=== PATIENT | male | born 1990 | race Two or more races ===

== ENCOUNTER 2024-06-06 00:44 | Inpatient (IN) | payer MEDICAID, SELFPAY ==
[2024-06-06] VITALS (16 sets, daily range): BP systolic 130–190; BP diastolic 92–131; PULSE 68–125; RESP 16–98; TEMP 36.2–37.6; O2SAT 94–100; BMI 35.1
--- NOTE | 2024-06-06 01:13 | PD.EDRME ---
Rapid Medical Screening Exam RME Arrival date/time: 06/06/24 00:44 34-year-old female with past medical history of kidney stones presents to the emergency department complaining of bilateral flank pain. Chief Complaint: Back Pain/Injury Time Seen by Provider: 06/06/24 03:10 Vital signs: Vital Signs Temperature 98.4 F 06/06/24 01:00 Pulse Rate 110 H 06/06/24 01:00 Respiratory Rate 19 06/06/24 01:00 Blood Pressure 189/114 H 06/06/24 01:00 Pulse Oximetry (%) 99 06/06/24 01:00 Oxygen Delivery Method Room Air 06/06/24 01:00 Vital signs reviewed by provider: Yes
[2024-06-06] MEDS: KETOROLAC INJ 60 MG/2 ML VIAL 30 MG IM (01:19)
[2024-06-06 01:35] LABS: Basophils % (Auto) 0 % (0-2.5); Eosinophils # (Auto) 0.1 Thou/mm3 (0.0-0.5); Eosinophils % (Auto) 1 % (0-10); Hematocrit 26.1 % (41.0-53.0); Immature Granulocytes % (Auto) 0 % (0-0); Immature Granulocytes Auto 0.02 Thou/mm3 (0.00-0.00); Lymphocytes # (Auto) 0.7 Thou/mm3 (1.0-4.8); Lymphocytes % (Auto) 8 % (10-50); Mean Corpuscular HGB Conc 29.9 g/dl (31.0-37.0); Mean Corpuscular Hemoglobin 19.9 pg (25.0-35.0); Mean Corpuscular Volume 67 fL (80-100); Monocytes # (Auto) 0.6 Thou/mm3 (0.0-0.8); Monocytes % (Auto) 7 % (0-12); Neutrophils # (Auto) 7.4 Thou/mm3 (1.8-7.7); Neutrophils % (Auto) 83 % (37-80); Nucleated Red Blood Cell % 0 /100 WBC (0); Platelet Count 332 Thou/mm3 (140-440); RDW Standard Deviation 45.2 fL (35.1-43.9); Red Blood Count 3.92 Miln/mm3 (4.50-5.90); White Blood Count 8.9 Thou/mm3 (3.8-10.6)
[2024-06-06 01:37] LABS: Hemoglobin 7.8 g/dL (13.5-16.0)
--- NOTE | 2024-06-06 03:09 | XR_ITS ---
Examination: CT abdomen with intravenous contrast CT pelvis with intravenous contrast 2-D coronal reconstructions 2-D sagittal reconstructions Date and time of exam:June 06, 2024 at 0349 hrs. Comparison May 01, 2024 Indications: Bilateral flank pain beginning 2 days ago, history kidney stones. CTDI: vol (mGy) 4.91 DLP: (mGycm) 279 Technique: Multiple axial sections of the abdomen and pelvis have been obtained. 64 slice high-resolution scanner used. 3 mm axial sections have been obtained, post intravenous injection 30 cc Isovue 300 2-D sagittal, coronal reconstructions obtained. Low dose protocols were performed. One or more of the following dose reduction techniques were used; automated exposure control, adjustment of the mA and/or KV according to patient size, use of iterative reconstruction technique. Findings: No focal liver or splenic lesions No gallstones No pancreatic mass Bilateral large staghorn calculi with bilateral ureteral stents Moderate to advanced right hydronephrosis mild left hydronephrosis Ureteral stents in satisfactory position Mild thickening of the urinary bladder wall Inflammatory change surrounding both ureters No bowel obstruction Appendix is not visualized Extensive laminectomy with likely postop fluid collection in the soft tissue posterior to S1-L2 measuring 6.5 x 3.5 cm Impression: Findings most consistent with bilateral pyelonephritis, including moderate to advanced right hydronephrosis mild left hydronephrosis Cystitis
--- NOTE | 2024-06-06 03:10 | EKG_ITS ---
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
[2024-06-06 03:17] LABS: Alanine Aminotransferase 8 U/L (10-49); Albumin, Serum 4.4 gm/dL (3.5-5.0); Albumin/Globulin Ratio 1.4 (1.2-2.2); Alkaline Phosphatase 106 U/L (46-116); Anion Gap 9 (7-16); Aspartate Amino Transferase 12 U/L (0-34); BUN/Creatinine Ratio 17 Ratio (12-20); Bilirubin,Total 0.7 mg/dL (0.3-1.2); Blood Urea Nitrogen 25 mg/dL (9-23); Calcium 8.9 mg/dL (8.3-10.6); Calcium (Corrected) 8.9 mg/dL (8.5-10.1); Carbon Dioxide 21.1 mMol/L (20.0-31.0); Chloride 103 mMol/L (98-107); Creatinine (Component) 1.5 mg/dL (0.6-1.3); Estimated Creatinine Clearance 45.9 mL/min (>60); Globulin 3.1 gm/dL (2.3-3.5); Glucose 99 mg/dL (74-106); Lipase 49 U/L (12-53); Osmolality,Calculated 270 (275-295); Sodium 133 mMol/L (136-145); Total Protein 7.5 gm/dL (5.7-8.2); eGFR > 60 See Note
[2024-06-06 03:18] LABS: Potassium 2.7 mMol/L (3.4-5.1)
--- NOTE | 2024-06-06 03:18 | EDNOTE_ITS ---
ED Back Injury Pain RME/HPI General Chief Complaint: Back Pain/Injury Stated Complaint: KIDNEY PAIN Time Seen by Provider: 06/06/24 03:10 Arrival date/time: 06/06/24 00:44 RME / HPI RME / HPI Narrative: 06/06/24 00:44 34-year-old female with past medical history of kidney stones presents to the emergency department complaining of bilateral flank pain. ------- Dr. Munoz?s Main ED Evaluation: 34yo male presents to the ED for a chief complaint of bilateral flank pain x 2 weeks. Patient states his flank pain has been getting progressively worse over the last 2 days, reporting he hasn't been able to sleep for the last 2 days. He denies any fever, chills, N/V or any other associated symptoms. Patient notes next f/u appointment with Dr. Morelos in July2023. 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 release 24 hr oxycodone-acetaminophen 2.5 mg-325 1 tab PO Q8H PRN pain #7 tabs 05/04/24 mg tablet Allergies Allergy/AdvReac Type Severity Reaction Status Date / Time latex Allergy Severe RASH Verified 03/13/24 07:47 Review of Systems Review of Systems Systems Reviewed: All systems reviewed, normal except as documented Narrative Review of Systems: Gen: No fever, no chills, no weight loss EYES: No discharge, no visual changes, no pain HEENT: No ear pain, no congestion, no sore throat PULM: No shortness of breath, no cough, no congestion CV: No chest pain, no dyspnea on exertion, no palpitations GI: No nausea, no vomiting, no diarrhea, no pain, no constipation : No frequency, no urgency, no dysuria Musc/skel: No joint pain, + back pain Skin: No rash Psyc: No hallucinations, no depression Heme/Lymph: No easy bleeding or bruising tendencies Neuro: No weakness, no headache ED Exam Narrative Physical exam: GENERAL APPEARANCE: AxOx4, generally well-appearing, no acute distress. HEENT: NC, AT. MMM. EOMI, clear conjunctiva, oropharynx clear. NECK: Supple without lymphadenopathy. No stiffness or restricted ROM. HEART: Normal rate and regular rhythm, normal S1/S1, no m/r/g LUNGS: CTAB, moving air well. No crackles or wheezes are heard. ABDOMEN: Soft, nontender, nondistended with good bowel sounds heard. BACK: No midline C/T/L spine pain or deformity, right CVAT greater than the left, no obvious deformity. EXTREMITIES: Without cyanosis, clubbing or edema. MUSCULOSKELETAL: FROM of all major joints, no chest tenderness NEUROLOGICAL: Grossly nonfocal. Alert and oriented, moving all 4 extremities. CN not formally tested but appear grossly intact. Observed to ambulate with normal gait. Skin: Warm and dry without any rash. Course Quality Measures none Orders Category Date Time Status Admit to Inpatient Status Routine Admission 06/06/24 05:16 Active Patient Condition Routine Admission 06/06/24 05:16 Ordered Activity as Tolerated Routine Care 06/06/24 05:[address] Screening NOW Care 06/06/24 03:10 Active Continuous Pulse Oximetry NOW Care 06/06/24 05:16 Active EKG (ED ONLY) *Do not use* NOW Care 06/06/24 03:10 Completed Notify provider NEEDED Care 06/06/24 05:16 Active Obtain weight daily Care 06/06/24 05:17 Active Diet Renal Diet 06/06/[address] abdomen pelvis w con Stat Exams 06/06/24 03:09 Taken EKG (ED Only) Stat Exams 06/06/24 03:10 Draft Blood Culture (Lab) Stat Lab 06/06/24 04:25 Ordered CBC AM DRAW Lab 06/07/24 05:00 Ordered CBC AM DRAW Lab 06/08/24 05:00 Ordered CBC AM DRAW Lab 06/09/24 05:00 Ordered CBC Stat Lab 06/06/24 01:24 Results CMP [Comprehensive Metabolic Panel] Stat Lab 06/06/24 01:24 Completed Comprehensive Metabolic Panel AM DRAW Lab 06/07/24 05:00 Ordered Comprehensive Metabolic Panel AM DRAW Lab 06/08/24 05:00 Ordered Comprehensive Metabolic Panel AM DRAW Lab 06/09/24 05:00 Ordered Lipase Stat Lab 06/06/24 01:24 Completed Magnesium AM DRAW Lab 06/07/24 05:00 [address] Review Blood Smear Stat Lab 06/06/24 01:24 Results Phosphorous AM DRAW Lab 06/07/24 05:00 Ordered Urinalysis, C/S if Indicated Stat Lab 06/06/24 04:11 Completed Urine Culture Stat Lab 06/06/24 04:11 Received Acetaminophen Tab [Tylenol Tab] Med 06/06/24 05:16 Active 650 mg PO Q6H PRN Acetaminophen Tab [Tylenol Tab] Med 06/06/24 03:12 Discontinued 650 mg PO X1 ONE Heparin Inj Med 06/06/24 06:00 Ordered 5,000 unit SC Q8HR Ketorolac Inj [Toradol Inj] Med 06/06/24 01:12 Discontinued 30 mg IM X1 ONE Morphine Inj Med 06/06/24 04:27 Discontinued 6 mg IVP X1 ONE Ondansetron Inj [Zofran Inj] Med 06/06/24 05:16 Ordered 4 mg IV Q6H PRN Potassium Chloride [K-Dur] Med 06/06/24 03:09 Discontinued 40 meq PO X1 ONE Sodium Chloride 0.9% 1000 ml [Ns] 1,000 ml Med 06/06/24 05:30 Ordered IV 75 mls/hr Sodium Chloride 0.9% 1000 ml [Ns] 1,000 ml Med 06/06/24 03:09 Discontinued IV 999 mls/hr amLODIPine BESYLATE [Norvasc] Med 06/06/24 04:39 Discontinued 10 mg PO X1 ONE cefTRIAXone/D5w 1gm IV premix [Rocephin/D5w 1gm IV Med 06/06/24 04:27 Discontinued premix] 50 ml IV X1 cloNIDine HCL [Catapres] Med 06/06/24 04:39 Discontinued 0.1 mg PO X1 ONE Code Status Routine Oth 06/06/24 05:16 Ordered Oxygen Delivery PRN RT 06/06/24 05:16 Active Vital Signs Vital signs: Vital Signs Temperature 98.4 F 06/06/24 01:00 Pulse Rate 110 H 06/06/24 01:00 Respiratory Rate 19 06/06/24 01:00 Blood Pressure 189/114 H 06/06/24 01:00 Pulse Oximetry (%) 99 06/06/24 01:00 Oxygen Delivery Method Room Air 06/06/24 01:00 Pulse ox is 99% on room air, which is normal according to my interpretation. Back Pain / Injury MDM Narrative MDM Narrative:: Mr. Dixon is wheelchari bound with frequent UTI/pyelonephritis with increasing flank tenderness. He has bilateral ureteral stents and nephrolithiasis. He presents otherwise afebrile with laboratory testing significant for a normal WBC, elevated creatinine suggestive of TRINI and urinalysis c/w UTI. EMR review shows admission last month for simliar presentation with urine culture postive for proteus sensitive to cephalosporins. He was given IVF resucitation for his TRINI and first dose of IV ceftriaxone after blood cultures retrieved. CT shows adequate positioning of bilateral stents with findings c/w with infection. Given his urologic issues and existing J stents, he was presented to hospitalist for admission on IV antibiotics to aggressively treat infections and preserve the ureteral stents. Scribe Attestation: IMaine, am scribing for and in the presence of Dr. Munoz. 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, recurrent UTI, chronic nephrolithiasis s/p multiple stents, chronic hydronephrosis, HTN, anemia, multiple back surgeries How is presenting disease/condition affected by chronic disease/condition?: exacerbated by Evaluation data The following diagnostics were reviewed and interpreted by me:: lab results, radiology exam(s) and EKG tracing(s) Lab and/or radiology exams considered but not ordered:: none Interpretation Summary: CBC is within normal limits, Potassium is low at 2.7, Sodium is slightly low at 133, Creatinine is slightly elevated at 1.5, Lipase is normal, UA is significant for a UTI, according to my interpretation. EKG done at 0319, sinus rhythm, rate of 93, normal intervals, normal axis, nonspecific ST changes, no STEMI, according to my interpretation. ----- Addendum Report, Please read the 3rd impression as - Bilateral nonobstructing nephrolithiasis. , CT scan of the abdomen and pelvis with intravenous contrast (axial sections with sagittal and coronal reformats) June 06, 2024 0349 hours Clinical History: ureteral stents, TRINI Comparison: None available at the time of this report. Findings: The lung bases are clear. The liver, gallbladder, pancreas, spleen, and adrenals are unremarkable. Bilateral JJ stents from the renal pelvises to the urinary bladder. Moderate right hydroureteronephrosis. Mild left hydroureteronephrosis. Bilateral nonobstructing kidney stones. Bilateral fat stranding along the ureters. Urinary bladder wall thickening. No evidence of bowel obstruction. No evidence of appendicitis. There is no mesenteric or retroperitoneal adenopathy. There is no free fluid or free air. No acute fractures. Bilateral small hip joint effusions. S/p posterior laminectomy of L2, L3, L4, and L5. Cystic lesion at the posterior laminectomy site measures 4.6 x 6.9 x 3.0 cm. Impression: Probable bilateral ureteritis. Bilateral hydroureteronephrosis. Bilateral obstructing nephrolithiasis. Urinary bladder wall thickening, suspicious for cystitis. Bilateral small hip joint effusions. Consider correlation with MRI. Fecal loading. Cystic lesion at the posterior laminectomy site, differential diagnosis includes postsurgical seroma and abscess. Correlation with MRI with and without contrast should be considered. This report has been electronically signed by: Jason Muñoz MD. Medications / Prescriptions Medications or Prescriptions considered but not ordered:: none Medication administrations:: Medication Administration History Acetaminophen (Acetaminophen 325 Mg Tablet) 650 mg PO Q6H PRN PRN Reason: PAIN OR FEVER > 101 Stop: 07/06/24 05:15 Heparin Sodium (Porcine) (Heparin Sod Inj 5000 Unit/Ml Vial) 5,000 unit SC Q8HR [facility] Stop: 06/20/24 05:59 Sodium Chloride (Ns) 1,000 mls @ 75 mls/hr IV .[id number] [facility] Stop: 07/06/24 05:29 Ondansetron HCl (Ondansetron Inj 2 Mg/Ml Inj 2 Ml) 4 mg IV Q6H PRN; Protocol PRN Reason: NAUSEA OR VOMITING Stop: 07/06/24 05:15 Discontinued Medications Acetaminophen (Acetaminophen 325 Mg Tablet) 650 mg PO X1 ONE Stop: 06/06/24 03:13 Last Admin: 06/06/24 03:19 Dose: Not Given Documented By: CHELSI Non-Admin Reason: Patient Refused Amlodipine Besylate (Amlodipine Besylate 5 Mg Tablet) 10 mg PO X1 ONE Stop: 06/06/24 04:40 Last Admin: 06/06/24 04:52 Dose: 10 mg Documented By: Clonidine (Clonidine Hcl 0.1 Mg Tablet) 0.1 mg PO X1 ONE Stop: 06/06/24 04:40 Last Admin: 06/06/24 04:51 Dose: 0.1 mg Documented By: ALMITA Sodium Chloride (Ns) 1,000 mls @ 999 mls/hr IV .Q1H1M ONE Stop: 06/06/24 04:09 Last Admin: 06/06/24 03:42 Dose: 999 mls/hr Documented By: CHELSI Ceftriaxone Sodium/Dextrose (Rocephin/D5w 1gm Iv Premix) 50 mls @ 100 mls/hr IV X1 ONE Stop: 06/06/24 04:56 Ketorolac Tromethamine (Ketorolac Inj 60 Mg/2 Ml Vial) 30 mg IM X1 ONE Stop: 06/06/24 01:13 Last Admin: 06/06/24 01:19 Dose: 30 mg Documented By: BRUNILDA Morphine Sulfate (Morphine Sulf Inj 10 Mg/Ml Vial) 6 mg IVP X1 ONE Stop: 06/06/24 04:28 Last Admin: 06/06/24 04:34 Dose: 6 mg Documented By: CHELSI Potassium Chloride (Potassium Chloride 20 Meq Tabcr) 40 meq PO X1 ONE Stop: 06/06/24 03:10 Last Admin: 06/06/24 03:20 Dose: 40 meq Documented By: CHELSI see above Consultations Consultation(s) initiated? (list below): Yes Consultation #1 (Physician, Specialty, Details): [Juan], hospitalist, made aware of the patient?s HPI, PMHx, lab and/or radiology results. Treatment plan was discussed. Will admit for further evaluation and management. Accepts patient for admission. Time: 04:59 Diagnosis Differential diagnosis back pain/injury: pyelonephritis and other (obstructive uropathy, uterolithiasis, UTI, cystitis, TRINI) Most likely diagnosis given after review of the tests above:: see below Admission Indicated Admission indicated?: indicated Admission Request Was there a request for admission?: Yes Admission Attestation Admission request attestation: Discussed case with [] from Hospitalist service regarding admission. Discussed patients ED course, exam findings, labs, and radiology results. The Hospitalist [agrees,declines] to accept the patient for admission. Disposition Plan Disposition Plan: Admit Discharge Plan Plan Patient Disposition: Admit Acute Care w/in Hospital Prescriptions/Referrals Prescriptions/Med Rec: No Action oxycodone-acetaminophen [Percocet] 2.5-325 mg tablet 1 tab PO Q6H MDD 10 PRN (Reason: pain) Qty: 10 0RF Hold Instructions: hold until follow up with pcp metoprolol succinate 100 mg capsule,sprinkle,ER 24hr 100 mg PO QDAY Qty: 30 0RF oxycodone-acetaminophen 2.5-325 mg tablet 1 tab PO Q8H MDD 3 tab PRN (Reason: pain) Qty: 7 0RF Referrals: Vandana Sears REAL ESTATE AGENT/BROKER [Primary Care Provider] - In 1 week Problem List Clinical Impression: Pyelonephritis, Staghorn renal calculus, Chronic UTI (urinary tract infection), Right flank pain Patient/Caregiver Discharge Instructions Print Language: Ecuadorean Stand Alone Forms: Leyla Award Info., Patient Portal Info Letter
[2024-06-06] MEDS: POTASSIUM CHLORIDE 20 mEq TABCR 40 MEQ PO ×2 (03:20→16:34)
[2024-06-06] MEDS: SODIUM CHLORIDE 0.9% 1000 ML 1,000 ML 999 ML IV (03:42)
--- NOTE | 2024-06-06 04:15 | PC.NURSE ---
DR. SAUL NOTIFIED OF BLOOD PRESSURE 190/131, HEART RATE 116, AND PAIN MEDICATION REQUEST PAIN LEVEL /, NO NEW ORDERS RECEIVED AT THIS TIME.
[2024-06-06 04:17] LABS: Collection Type, Urine Clean Catch
[2024-06-06 04:22] LABS: Bacteria,Urine 2+; Bilirubin,Urine Negative (Negative); Blood,Urine 2+ (Negative); Budding Yeast,Urine Present; Glucose, Urine Negative (Negative); Ketones,Urine Negative (Negative); Leukocyte Esterase,Urine Positive (Negative); Nitrite,Urine Negative (Negative); Protein,Urine 3+ (Neg - Trace); RBC,Urine 97 /hpf (0-3); Specific Gravity,Urine 1.012 (1.001-1.035); Squamous Epithelial Cell,Urine 2 /hpf (0-5); Urobilinogen,Urine Negative mg/dL (0.0-1.0); WBC,Urine 743 /hpf (0-5)
[2024-06-06 04:23] LABS: Clarity,Urine Turbid (Clear/Hazy); Color,Urine Yellow (Lt Yel-Yel); Culture Indicated,Urine Yes
--- NOTE | 2024-06-06 04:26 | PRELIM_ITS ---
ORIGINAL REPORTCT scan of the abdomen and pelvis with intravenous contrast (axial sections with sagit paulie and coronal reformats) June 06, 2024 0349 hoursClinical History: ureteral stents, [place] on: None available at the time of this report.Findings:The lung bases are clear.The liver, gallbladde r, pancreas, spleen, and adrenals are unremarkable.Bilateral JJ stents from the renal pelvises to the urinary bladder.Moderate right hydroureteronephrosis. Mild left hydroureteronephrosis. Bilateral non obstructing kidney stones.Bilateral fat stranding along the ureters.Urinary bladder wall thickening.N o evidence of bowel obstruction. No evidence of appendicitis. There is no mesenteric or retroperitone al adenopathy.There is no free fluid or free air.No acute fractures. Bilateral small hip joint effusi ons.S/p posterior laminectomy of L2, L3, L4, and L5.Cystic lesion at the posterior laminectomy site m easures 4.6 x 6.9 x 3.0 cm.Impression:Probable bilateral ureteritis.Bilateral hydroureteronephrosis.B ilateral obstructing nephrolithiasis.Urinary bladder wall thickening, suspicious for cystitis.Bilater al small hip joint effusions. 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 Correlation wi MRI with and without contrast should be considered. Report Electronically Signed By: Jason roberson 06/06/2024 4:26:07 AM [EST]ADDENDUM REPORTPlease read the 3rd impression as - Bilateral nonobstru cting nephrolithiasis.Discussion Details: Addendum results verbally communicated to Dr. Munoz at 07: 56 AM ET 06/08/2024. Report Electronically Signed By: Jason Muñoz 06/06/2024 5:02:54 AM [EST]
[2024-06-06] MEDS: MORPHINE SULF INJ 10 MG/ML VIAL 6 MG IVP (04:34)
[2024-06-06] MEDS: cloNIDine HCL 0.1 MG TABLET PO ×2 (04:51→20:06)
[2024-06-06] MEDS: amLODIPine BESYLATE 5 MG TABLET 10 MG PO (04:52)
--- NOTE | 2024-06-06 05:29 | ESHP_ITS ---
Documentation for date of: 06/06/24 [facility] History of Present Illness History of present illness: Pierce Dixon is a 34-year-old male with a past medical history of spina bifida (wheelchair-bound), STRAW H[employer] shunt, recurrent UTI, chronic nephrolithiasis s/p multiple stents and self-catheterization, hypertension, and chronic anemia who presented to ED for abdominal and flank pain for two weeks that had progressively worsened in the last two days. Associated chills, dysuria, cloudy urine, and urinary frequency. Denies fever, nausea, sweats. Recently discharged on 05/04 for similar symptoms and found to have bilateral staghorn calculi due to Proteus mirabilis. Patient was to follow-up with Dr. Morelos for replacement of bilateral ureteral stents and dissolution of renal calculi earlier this month but was unable to due to transportation issues and episodes of diarrhea. As of now, patient is to see Dr. Morelos in July. 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 HEENT: NC/AT, mucous membranes moist, bilateral sclera anicteric. Cardiovascular: Regular rate and rhythm, S1/S2 present, no murmurs appreciated. Pulmonary: Clear to auscultation bilaterally, no rales/rhonchi/wheezes. Abdominal: Bilateral CVA tenderness, left flank tenderness; soft, non-distended, no rebound/guarding. Musculoskeletal: No peripheral edema. Skin: Warm and dry, intact, no rashes. Neuro: CN II-XII intact, no focal deficits. Results: Labs 06/06/24 01:24 06/06/24 01:24 Labs: Short CBC 06/06/24 Range/Units 01:24 WBC 8.9 (3.8-10.6) Thou/mm3 Hgb 7.8 L (13.5-16.0) g/dL Hct 26.1 L (41.0-53.0) % Plt Count 332 D (140-440) Thou/mm3 BMP 06/06/24 01:24 Sodium 133 L Potassium 2.7 L* Chloride 103 Carbon Dioxide 21.1 BUN 25 H Creatinine 1.5 H Glucose 99 Calcium 8.9 Liver Function 06/06/24 Range/Units 01:24 Total Bilirubin 0.7 (0.3-1.2) mg/dL AST 12 (0-34) U/L ALT 8 L (10-49) U/L Alkaline Phosphatase 106 (46-116) U/L Albumin 4.4 (3.5-5.0) gm/dL Urine 06/06/24 Range/Units 04:11 Urine Color Yellow (Lt Yel-Yel) Urine Clarity Turbid A (Clear/Hazy) Urine pH 8.0 H (5.0-7.0) Ur Specific [place] 1.012 (1.001-1.035) Urine Protein 3+ A (Neg - Trace) Urine Glucose (UA) Negative (Negative) Quality Measures Quality Measures none Medications Home Medications and Allergies Allergies Allergy/AdvReac Type Severity Reaction Status Date / Time latex Allergy Severe RASH Verified 03/13/24 07:47 Visit Medications Acetaminophen (Acetaminophen 325 Mg Tablet) 650 mg PO Q6H PRN PRN Reason: PAIN OR FEVER > 101 Stop: 07/06/24 05:15 Amlodipine Besylate (Amlodipine Besylate 5 Mg Tablet) 10 mg PO QDAY ARACELY Stop: 07/07/24 08:59 Clonidine (Clonidine Hcl 0.1 Mg Tablet) 0.1 mg PO BID ARACELY Stop: 07/06/24 20:59 Heparin Sodium (Porcine) (Heparin Sod Inj 5000 Unit/Ml Vial) 5,000 unit SC Q8HR [facility] Stop: 06/20/24 05:59 Hydromorphone HCl (Hydromorphone Inj 2 Mg/Ml Vial) 0.5 mg IVP Q8H PRN PRN Reason: PAIN SCALE 4-6 (Moderate Stop: 06/11/24 05:29 Sodium Chloride (Ns) 1,000 mls @ 75 mls/hr IV .[id number] [facility] Stop: 06/06/24 18:49 Ondansetron HCl (Ondansetron Inj 2 Mg/Ml Inj 2 Ml) 4 mg IV Q6H PRN; Protocol PRN Reason: NAUSEA OR VOMITING Stop: 07/06/24 05:15 Discontinued Medications Acetaminophen (Acetaminophen 325 Mg Tablet) 650 mg PO X1 ONE Stop: 06/06/24 03:13 Last Admin: 06/06/24 03:19 Dose: Not Given Amlodipine Besylate (Amlodipine Besylate 5 Mg Tablet) 10 mg PO X1 ONE Stop: 06/06/24 04:40 Last Admin: 06/06/24 04:52 Dose: 10 mg Clonidine (Clonidine Hcl 0.1 Mg Tablet) 0.1 mg PO X1 ONE Stop: 06/06/24 04:40 Last Admin: 06/06/24 04:51 Dose: 0.1 mg Sodium Chloride (Ns) 1,000 mls @ 999 mls/hr IV .Q1H1M ONE Stop: 06/06/24 04:09 Last Admin: 06/06/24 03:42 Dose: 999 mls/hr Ceftriaxone Sodium/Dextrose (Rocephin/D5w 1gm Iv Premix) 50 mls @ 100 mls/hr IV X1 ONE Stop: 06/06/24 04:56 Ketorolac Tromethamine (Ketorolac Inj 60 Mg/2 Ml Vial) 30 mg IM X1 ONE Stop: 06/06/24 01:13 Last Admin: 06/06/24 01:19 Dose: 30 mg Morphine Sulfate (Morphine Sulf Inj 10 Mg/Ml Vial) 6 mg IVP X1 ONE Stop: 06/06/24 04:28 Last Admin: 06/06/24 04:34 Dose: 6 mg Potassium Chloride (Potassium Chloride 20 Meq Tabcr) 40 meq PO X1 ONE Stop: 06/06/24 03:10 Last Admin: 06/06/24 03:20 Dose: 40 meq Assessment & Plan Plan Pierce Dixon is a 34-year-old male with a past medical history of spina bifida (wheelchair-bound), STR[employer] shunt, recurrent UTI, chronic nephrolithiasis s/p multiple stents and self-catheterization, hypertension, and chronic anemia admitted for bilateral hydroureteronephrosis and acute kidney injury. #Urinary tract infection #History of frequent UTI #Bilateral hydroureteronephrosis #Bilateral nonobstructing nephrolithiasis #S/p bilateral stent placement Complicated urological history of recurrent UTI, hydronephrosis, nephrolithiasis, status post multiple ureteral stents. CT A/P prelim read: Bilateral hydroureteronephrosis, bilateral nonobstructing nephrolithiasis, cystitis. History of Proteus mirabilis UTI sensitive to ceftriaxone. Follows-up with Dr. Morelos and per patient will see in July. ? Ceftriaxone 1 g IV daily ? Pain management: Dilaudid 0.5 mg IV every 8 hours as needed ? Follow-up urine culture ? Follow-up blood culture #TRINI #Hypokalemia Initial creatinine 1.5 (baseline 1.2), initial K 2.7. Given total 60 mEq PO potassium in ED. ? Monitor morning labs and replete as needed ? 1 L NS at 75 mL/h ? Avoid nephrotoxic agents, renally dose medications #Chronic microcytic anemia, likely due to iron deficiency ? Monitor with daily CBC #History of hypertension ? Amlodipine 10 mg daily ? Clonidine 0.1 mg p.o. twice daily #Spina bifida ? Follow-up outpatient Hospital management: Disposition: 2-3 hospital nights Fluids: 1 L NS at 75 mL/hr Diet: Renal Lines: Peripheral DVT prophylaxis: Heparin GI prophylaxis: Not indicated, on diet Baker: Self-caths at home CODE STATUS: full code ----- Plan discussed with attending physician Dr. Juan Flores MD PGY-1 Internal Medicine Attending Provider Attestation/Addendum Pt was evaluated and plan formulated together with the housestaff team. I have reviewed the residents note above and agree with most of its content. Please refer to the residents note for additional details.
[2024-06-06] MEDS: cefTRIAXone/D5w 1gm IV premix 50 ML IV (05:31)
[2024-06-06] MEDS: SODIUM CHLORIDE 0.9% 1000 ML 1,000 ML 75 ML IV (05:35)
[2024-06-06] MEDS: POTASSIUM CHLORIDE 20 mEq TABCR PO (05:35)
[2024-06-06 06:02] LABS: Path Review Blood Smear Sent to Pathologist
--- NOTE | 2024-06-06 08:30 | PC.NURSE ---
Pt is asleep. Arouses easily.
[2024-06-06] MEDS: HYDROmorphone INJ 2 MG/ML VIAL 0.5 MG IVP ×2 (08:41→16:33)
[2024-06-06] MEDS: ONDANSETRON INJ 2 MG/ML INJ 2 ML 4 MG IV ×2 (08:42→18:18)
[2024-06-06] MEDS: ACETAMINOPHEN 325 MG TABLET 650 MG PO ×2 (12:01→19:36)
--- NOTE | 2024-06-06 13:57 | ESPR_ITS ---
<Statement entered by Harleen Cevallos MD - 06/07/24 15:51> Patient was seen and examined at bedside. No acute overnight events. Patient continues to have severe pain, and will continue with IV Dilaudid. Pending UCx. On IV Abx. Dr. Morelos was able to see patient, and recommended stents to removed if patient requires hospitalization into next week, if not can follow up outpatient. I discussed with and supervised the physician internist physician who took care of this patient. I personally saw and examined the patient and discussed the assessment and plan with the entire medicine team, including my attending Dr. Adkins, I agree with most of the assessment and plan as documented below Harleen Cevallos M.D. PGY-2 Documentation for date of: 06/06/24 Subjective Subjective Interval history: Patient was seen and examined at bedside. Patient endorses dysuria, lower abdominal pain, bilateral flank pain, decreased appetite. Patient has not had much oral intake due to intense pain. Previous visit with Dr. Morelos urologist was 2 months ago. Upcoming appointment set for July2024, patient will have stents replaced and possible lithotripsy. Blood culture/urine culture is still pending. Labs significant for anemia with Hb 7.8, MCV 67, K+ 2.7. He was repleted with a total of 100 mEq (40+20+40). BP has been improving since admission but remains slightly elevated around 100 bpm.?Continue with Rocefin and Dilaudid 0.5 IV every 8 hours are as needed. No further complaints at this time. Dr. Morelos was made aware of patient's admission. Review of systems otherwise negative except what is mentioned above. Exam Vital Signs Temp Pulse Resp BP Pulse Ox O2 Del Method 97.2 F 68 18 132/93 H 96 Room Air 06/06/24 12:00 06/06/24 12:02 06/06/24 12:02 06/06/24 12:00 06/06/24 12:00 06/06/24 12:00 Narrative Exam General: Alert and oriented x3. Mild distress, cooperative HEENT: Atraumatic, normocephalic. No JVD noted. Mucosa moist. Cardiovascular: Normal S1 and S2. Regular rate and rhythm. No pitting edema Respiratory: Lungs are clear to auscultation bilaterally. No wheezing or crackles heard. Abdomen: Soft, nontender, not distended, normal bowel sounds, b/L CVA tenderness Skin: Warm to touch, dry, no rashes noted MSK/extremities: No gross injuries. Able to move all 4 extremities, atrophic b/L LE Neuro: Alert and oriented x3. No focal neuro deficits. Psych: Normal affect and mood Objective Labs 06/06/24 01:24 06/06/24 01:24 Labs: Laboratory Results - last 24 hr 06/06/24 06/06/24 01:24 04:11 WBC 8.9 RBC 3.92 L Hgb 7.8 L Hct 26.1 L MCV 67 L MCH 19.9 L MCHC 29.9 L RDW Std Deviation 45.2 H Plt Count 332 D Neut % (Auto) 83 H Lymph % (Auto) 8 L [place] % (Auto) 7 Eos % (Auto) 1 Baso % (Auto) 0 Neut # (Auto) 7.4 Lymph # (Auto) 0.7 L [place] # (Auto) 0.6 Eos # (Auto) 0.1 Baso # (Auto) 0.0 Immature Gran # (Auto) 0.02 H Absolute Nucleated RBC 0.00 Immature Gran % 0 Nucleated RBC % 0 Smear Path Review Sent to Pathologist Sodium 133 L Potassium 2.7 L* Chloride 103 Carbon Dioxide 21.1 Anion Gap 9 BUN 25 H Creatinine 1.5 H Estim Creat Clear Calc 45.9 L eGFR > 60 BUN/Creatinine Ratio 17 Glucose 99 Calculated Osmolality 270 L Calcium 8.9 Corrected Calcium 8.9 Total Bilirubin 0.7 AST 12 ALT 8 L Alkaline Phosphatase 106 Total Protein 7.5 Albumin 4.4 Globulin 3.1 Albumin/Globulin Ratio 1.4 Lipase 49 Ur Collection Type Clean Catch Urine Color Yellow Urine Clarity Turbid A Urine pH 8.0 H Ur Specific [place] 1.012 Urine Protein 3+ A Urine Glucose (UA) Negative Urine Ketones Negative Urine Blood 2+ A Urine Nitrite Negative Urine Bilirubin Negative Urine Urobilinogen (Auto) Negative Ur Leukocyte Esterase Positive Urine RBC 97 H Urine WBC 743 H Ur Squamous Epith Cells 2 Urine Bacteria 2+ A Urine Yeast (Budding) Present A Ur Culture Indicated? Yes Quality Measures Quality Measures none Assessment & Plan Assessment Current Active Medications: Generic Name Dose Route Start Last Admin Trade Name Freq PRN Reason Stop Dose Admin Acetaminophen 650 mg 06/06/24 05:16 06/06/24 12:01 Acetaminophen 325 Mg Tablet PO 07/06/24 05:15 650 mg Q6H PRN Administration PAIN OR FEVER > 101 Amlodipine Besylate 10 mg 06/07/24 09:00 Amlodipine Besylate 5 Mg Tablet PO 07/07/24 08:59 QDAY ARACELY Clonidine 0.1 mg 06/06/24 21:00 Clonidine Hcl 0.1 Mg Tablet PO 07/06/24 20:59 BID ARACELY Heparin Sodium (Porcine) 5,000 unit 06/06/24 06:00 06/06/24 05:36 Heparin Sod Inj 5000 Unit/Ml Vial SC 06/20/24 05:59 Not Given Q8HR ARACELY Hydromorphone HCl 0.5 mg 06/06/24 05:21 06/06/24 08:41 Hydromorphone Inj 2 Mg/Ml Vial IVP 06/11/24 05:29 0.5 mg Q8H PRN Administration PAIN SCALE 4-6 (Moderate Sodium Chloride 1,000 mls @ 75 mls/hr 06/06/24 05:30 06/06/24 05:35 Ns IV 06/06/24 18:49 75 mls/hr .[id number] ARACELY Administration Ceftriaxone Sodium/Dextrose 50 mls @ 100 mls/hr 06/07/24 09:00 Rocephin/D5w 1gm Iv Premix IV 06/14/24 08:59 QDAY ARACELY Ondansetron HCl 4 mg 06/06/24 05:16 06/06/24 08:42 Ondansetron Inj 2 Mg/Ml Inj 2 Ml IV 07/06/24 05:15 4 mg Q6H PRN Administration NAUSEA OR VOMITING Protocol Potassium Chloride 40 meq 06/06/24 17:00 Potassium Chloride 20 Meq Tabcr PO 06/06/24 17:01 X1 ONE Plan Pierce Dixon 34-y/o male with a past medical history of spina bifida (wheelchair-bound), [employer] shunt, recurrent UTI, chronic nephrolithiasis s/p multiple stents, chronic hydronephrosis, HTN, anemia, multiple back surgeries presented to ED for abdominal and flank pain x 4 days. Associated dysuria, dark urine, urinary frequency. Denies fever, chills, nausea, sweats. Saw PCP and given p.o. antibiotics but symptoms persisted and came to ED. Dr. Morelos planned to remove stents next week regarding obstructive renal calculus. Admitted for further management of complicated UTI/hydronephrosis. #Complicated Urinary tract infection #History of frequent UTI #Bilateral hydronephrosis #Chronic pyelonephritis #Staghorn nephrolithiasis s/p bilateral stent placement Complicated urological history of recurrent UTI, hydronephrosis, nephrolithiasis, status post multiple ureteral stents. Patient does not meet sepsis criteria. CT A/P: Bilateral large staghorn calculi with bilateral ureteral stents. Moderate to advanced right hydronephrosis mild left hydronephrosis -Continue Rocephin -Pain management--Dilaudid 0.5 mg IV every 8 HR as needed -Follow-up urine culture -Follow-up blood culture -Dr. Morelos has been consulted #pre renal vs post renal TRINI Baseline Cr 1.2 -today Cr 1.5 -Avoid nephrotoxic agents, renally dose medications -Hold home lisinopril in a setting of TRINI -continue with adequate hydration orally or IV -Currently receiving 1 L maintenance fluids IV -daily renal pannel #Hypokalemia Potassium 2.7 in ED ? Patient has been repleted with a total of 100mEq (40+60+40) ? Continue to monitor daily potassium ? Replete as needed to maintain above 4.0 #Chronic microcytic anemia, likely due to iron deficiency ? Monitor with daily CBC #History of hypertension ? Amlodipine 10 mg daily ? Clonidine 0.1 mg p.o. twice daily #Spina bifida ? Follow-up outpatient Hospital management: Disposition: med surg, UTI tx Diet: Renal Lines: Peripheral DVT prophylaxis: Heparin GI prophylaxis: Not indicated, on diet Baker: Self-caths at home CODE STATUS: full code ----- Plan discussed with attending physician Dr. Adkins and senior resident Dr. Cevallos. Eulalia Arias, PGY-1 Attending Provider Attestation/Addendum Rocco, Alecia Adkins, DO, attest that I was physically present for the davila portions of the service and evaluated the patient with the resident and I reviewed and discussed the case with the resident and agree with the resident's findings and plans of care as documented above Patient seen and evaluated this AM. He reports dysuria and flank pain not controlled by PO medications. Patient states he has been taking PO dilaudid at home. Patient had seen urology two months ago and was scheduled for procedure last week. however, it was cancelled since patient had diarrhea. Urology consulted and states that patient need stents to be replaced if patient remains inhouse next week. Will continue with IV abx at this time. Continue with pain control PRN.
[2024-06-06 19:42] LABS: Potassium 4.1 mMol/L (3.4-5.1)
--- NOTE | 2024-06-06 20:40 | PC.NURSE ---
in and out self cath done by pt using f18 silicone catheter.
[2024-06-07] VITALS (12 sets, daily range): BP systolic 129–153; BP diastolic 90–105; PULSE 88–123; RESP 16–99; TEMP 36.2–37.1; O2SAT 96–98
[2024-06-07] MEDS: HYDROmorphone INJ 2 MG/ML VIAL 0.5 MG IVP ×5 (00:31→22:34)
[2024-06-07] MEDS: ACETAMINOPHEN 325 MG TABLET 650 MG PO ×2 (02:16→20:08)
[2024-06-07 05:56] LABS: Basophils % (Auto) 0 % (0-2.5); Eosinophils # (Auto) 0.1 Thou/mm3 (0.0-0.5); Eosinophils % (Auto) 1 % (0-10); Hematocrit 21.8 % (41.0-53.0); Immature Granulocytes % (Auto) 0 % (0-0); Immature Granulocytes Auto 0.01 Thou/mm3 (0.00-0.00); Lymphocytes # (Auto) 0.5 Thou/mm3 (1.0-4.8); Lymphocytes % (Auto) 9 % (10-50); Mean Corpuscular HGB Conc 28.9 g/dl (31.0-37.0); Mean Corpuscular Hemoglobin 19.9 pg (25.0-35.0); Mean Corpuscular Volume 69 fL (80-100); Monocytes # (Auto) 0.5 Thou/mm3 (0.0-0.8); Monocytes % (Auto) 9 % (0-12); Neutrophils # (Auto) 4.5 Thou/mm3 (1.8-7.7); Neutrophils % (Auto) 80 % (37-80); Nucleated Red Blood Cell % 0 /100 WBC (0); Platelet Count 277 Thou/mm3 (140-440); RDW Standard Deviation 47.7 fL (35.1-43.9); Red Blood Count 3.17 Miln/mm3 (4.50-5.90); White Blood Count 5.6 Thou/mm3 (3.8-10.6)
[2024-06-07 06:00] LABS: Hemoglobin 6.3 g/dL (13.5-16.0)
--- NOTE | 2024-06-07 06:15 | PC.NURSE ---
Dr. Flores aware of critical lab hemoglobin 6.3 and hct 21.8.
[2024-06-07 06:37] LABS: Alanine Aminotransferase < 7 U/L (10-49); Albumin, Serum 3.7 gm/dL (3.5-5.0); Albumin/Globulin Ratio 1.4 (1.2-2.2); Alkaline Phosphatase 86 U/L (46-116); Anion Gap 7 (7-16); Aspartate Amino Transferase 10 U/L (0-34); BUN/Creatinine Ratio 17 Ratio (12-20); Bilirubin,Total 0.7 mg/dL (0.3-1.2); Blood Urea Nitrogen 25 mg/dL (9-23); Calcium 8.5 mg/dL (8.3-10.6); Calcium (Corrected) 8.7 mg/dL (8.5-10.1); Carbon Dioxide 17.9 mMol/L (20.0-31.0); Chloride 106 mMol/L (98-107); Creatinine (Component) 1.5 mg/dL (0.6-1.3); Estimated Creatinine Clearance 45.9 mL/min (>60); Globulin 2.7 gm/dL (2.3-3.5); Glucose 86 mg/dL (74-106); Magnesium 2.2 mg/dL (1.6-2.6); Osmolality,Calculated 266 (275-295); Phosphorous 2.2 mg/dL (2.4-5.1); Potassium 3.8 mMol/L (3.4-5.1); Sodium 131 mMol/L (136-145); Total Protein 6.4 gm/dL (5.7-8.2); eGFR > 60 See Note
[2024-06-07 07:39] LABS: Hematocrit 24.6 % (41.0-53.0)
[2024-06-07 08:36] LABS: Hemoglobin 7.1 g/dL (13.5-16.0)
--- NOTE | 2024-06-07 09:15 | ESPR_ITS ---
<Statement entered by Harleen Cevallos MD - 06/08/24 07:12> Patient was seen and examined at bedside. No acute overnight events. Patient continues to be in pain and will increase frequency of pain meds, and advised patient to get a referral to see a pain specialist d/t patient's resistance to most pain medications. Pending final UCx. Patient will have to follow up with Dr. Morelos s/p discharge. Anticipate discharge within 24-48 hours. I discussed with and supervised the internal security manager physician who took care of this patient. I personally saw and examined the patient and discussed the assessment and plan with the entire medicine team, including my attending , I agree with most of the assessment and plan as documented below Harleen Cevallos M.D. PGY-2 Documentation for date of: 06/07/24 Subjective Subjective Interval history: Patient was seen and examined at bedside. Overnight, Hb dropped to 6.3 and he was given x1 unit pRBC. Repeat H&H is pending. Will continue to trend. This morning he was yelling in pain and asking for Dilaudid. Per nursing,?patient refused norco stating he gets a rash from it. He still complains of dysuria with fowl smelling urine. Labs significant for mild hyponatremia 131, Hb 6.3, Cr 1.5. Urine culture was positive for GNR. Vitals were reviewed and patient remains slightly tachycardic and hypertensive 135-145 systolic. Continue with oral hydration and Rocefin. Dr. Morelos saw patient yesterday stating he can replace stents next week if patient is still here. Review of systems otherwise negative except what is mentioned above. Exam Vital Signs Temp Pulse Resp BP Pulse Ox O2 Del Method 98.6 F 113 H 16 151/101 H 98 Room Air 06/07/24 07:51 06/07/24 07:51 06/07/24 07:51 06/07/24 07:51 06/07/24 07:51 06/07/24 07:51 Narrative Exam General: Alert and oriented x3. Distressed in pain HEENT: Atraumatic, normocephalic. No JVD noted. Mucosa moist. Cardiovascular: Normal S1 and S2. Regular rate and rhythm. No pitting edema Respiratory: Lungs are clear to auscultation bilaterally. No wheezing or crackles heard. Abdomen: Soft, nontender, not distended, normal bowel sounds, b/L CVA tenderness Skin: Warm to touch, dry, no rashes noted MSK/extremities: No gross injuries. Able to move all 4 extremities, atrophic b/L LE Neuro: Alert and oriented x3. No focal neuro deficits. Psych: irritated Objective Labs 06/08/24 05:40 06/08/24 05:40 Labs: Laboratory Results - last 24 hr 06/06/24 06/07/24 06/07/24 19:10 04:56 06:30 WBC 5.6 RBC 3.17 L Hgb 6.3 L* 7.1 L Hct 21.8 L* 24.6 L MCV 69 L MCH 19.9 L MCHC 28.9 L RDW Std Deviation 47.7 H Plt Count 277 D Neut % (Auto) 80 Lymph % (Auto) 9 L [place] % (Auto) 9 Eos % (Auto) 1 Baso % (Auto) 0 Neut # (Auto) 4.5 Lymph # (Auto) 0.5 L [place] # (Auto) 0.5 Eos # (Auto) 0.1 Baso # (Auto) 0.0 Immature Gran # (Auto) 0.01 H Absolute Nucleated RBC 0.00 Immature Gran % 0 Nucleated RBC % 0 Sodium 131 L Potassium 4.1 D 3.8 Chloride 106 Carbon Dioxide 17.9 L Anion Gap 7 BUN 25 H Creatinine 1.5 H Estim Creat Clear Calc 45.9 L eGFR > 60 BUN/Creatinine Ratio 17 Glucose 86 Calculated Osmolality 266 L Calcium 8.5 Corrected Calcium 8.7 Phosphorus 2.2 L Magnesium 2.2 Total Bilirubin 0.7 AST 10 ALT < 7 L Alkaline Phosphatase 86 D Total Protein 6.4 Albumin 3.7 D Globulin 2.7 Albumin/Globulin Ratio 1.4 Blood Type A Positive Antibody Screen NEGATIVE Crossmatch See Detail Blood Bank Wristband ID Yes Quality Measures Quality Measures none Assessment & Plan Assessment Current Active Medications: Generic Name Dose Route Start Last Admin Trade Name Freq PRN Reason Stop Dose Admin Acetaminophen 650 mg 06/06/24 05:16 06/07/24 02:16 Acetaminophen 325 Mg Tablet PO 07/06/24 05:15 650 mg Q6H PRN Administration PAIN OR FEVER > 101 Amlodipine Besylate 10 mg 06/07/24 09:00 Amlodipine Besylate 5 Mg Tablet PO 07/07/24 08:59 QDAY ARACELY Clonidine 0.1 mg 06/06/24 21:00 06/06/24 20:06 Clonidine Hcl 0.1 Mg Tablet PO 07/06/24 20:59 0.1 mg BID ARACELY Administration Heparin Sodium (Porcine) 5,000 unit 06/06/24 06:00 06/07/24 04:59 Heparin Sod Inj 5000 Unit/Ml Vial SC 06/20/24 05:59 Not Given Q8HR ARACELY Hydromorphone HCl 0.5 mg 06/07/24 09:07 Hydromorphone Inj 2 Mg/Ml Vial IVP 06/11/24 05:20 Q4H PRN PAIN SCALE 4-6 (Moderate Ceftriaxone Sodium/Dextrose 50 mls @ 100 mls/hr 06/07/24 09:00 Rocephin/D5w 1gm Iv Premix IV 06/14/24 08:59 QDAY ARACELY Ondansetron HCl 4 mg 06/06/24 05:16 06/06/24 18:18 Ondansetron Inj 2 Mg/Ml Inj 2 Ml IV 07/06/24 05:15 4 mg Q6H PRN Administration NAUSEA OR VOMITING Protocol Plan Pierce Dixon 34-y/o male with a past medical history of spina bifida (wheelchair-bound), 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 Associated dysuria, dark urine, urinary frequency. Denies fever, chills, nausea, sweats. Saw PCP and given p.o. antibiotics but symptoms persisted and came to ED. Dr. Morelos planned to remove stents next week regarding obstructive renal calculus. Admitted for further management of complicated UTI/hydronephrosis. #GNR UTI #History of frequent UTI #Bilateral hydronephrosis #Chronic pyelonephritis #Staghorn nephrolithiasis s/p bilateral stent placement Complicated urological history of recurrent UTI, hydronephrosis, nephrolithiasis, status post multiple ureteral stents. Patient does not meet sepsis criteria. CT A/P: Bilateral large staghorn calculi with bilateral ureteral stents. Moderate to advanced right hydronephrosis mild left hydronephrosis -Continue Rocephin -Pain management--Dilaudid 0.5 mg IV every 8 HR as needed -Follow-up urine culture -preliminary blood cultures were negative -Dr. Morelos has been consulted. He may replace stents next week if patient is still admitted. #pre renal vs post renal TRINI Baseline Cr 1.2 -today Cr 1.5 -Avoid nephrotoxic agents, renally dose medications -Hold home lisinopril in a setting of TRINI -continue with adequate oral hydration -daily renal pannel #Hyponatremia 2/2 diluation vs decreased oral intake -Na 131 today -continue with oral hydration #Hypokalemia-resolved Potassium 2.7 in ED ? Patient has been repleted with a total of 100mEq (40+60+40) ? Continue to monitor daily potassium ? Replete as needed to maintain above 4.0 #Chronic microcytic anemia, likely due to iron deficiency ? Monitor with daily CBC -repeat Hb 7.1 s/p x1 unit pRBC #History of hypertension ? Clonidine 0.1 mg p.o. twice daily #Spina bifida ? Follow-up outpatient Hospital management: Disposition: med surg, UTI tx Diet: Renal Lines: Peripheral DVT prophylaxis: Heparin GI prophylaxis: Not indicated, on diet Baker: Self-caths at home CODE STATUS: full code ----- Plan discussed with attending physician Dr. Adkins and senior resident Dr. Cevallos. Eulalia Arias, PGY-1 LI discussed with and supervised the internal security manager physician who took care of this patient. I personally saw and examined the patient and discussed the assessment and plan with the entire medicine team, including my attending Dr. Adkins. I agree with the assessment and plan as documented above. Patient interviewed and examined at bedside this a.m. Overnight, the patient's hemoglobin was found to be low at 6.3. He was transfused with 1 unit of packed red blood cells. Repeat H&H 7.124.6. Urine culture positive for GNR. Will continue ceftriaxone. Spoke with urology services who stated if patient is still here in [address] stent. Kulwinder Graham M.D. Internal Medicine PGY-3 Attending Provider Attestation/Addendum Rocco, Alecia Adkins, DO, attest that I was physically present for the davila portions of the service and evaluated the patient with the resident and I reviewed and discussed the case with the resident and agree with the resident's findings and plans of care as documented above Patient seen and evaluated this AM. He complains of having excruciating pain overnight such that he could not sleep and was crying in the morning. Interval of dilaudid was increased. Patient states he has been taking Dilaudid PO at home, but they have not been relieving his pain. He also reports rash with use of [place]. Explained to patient that the he should see pain management outpatient due to increasing dependence and resistance to opioids. He reports having persistent dysuria. Ucx positive for gram negative rods. Pending final cultures and sensitivities of urine cultures. He has otherwise been afebrile overnight. Hgb was noted to be 6.3. Patient transfused one unit. No signs of active bleeding otherwise. Continue with rocephin at this time.
[2024-06-07] MEDS: amLODIPine BESYLATE 5 MG TABLET 10 MG PO (09:24)
[2024-06-07] MEDS: cloNIDine HCL 0.1 MG TABLET PO ×2 (09:24→20:08)
[2024-06-07] MEDS: cefTRIAXone/D5w 1gm IV premix 50 ML IV (09:25)
--- NOTE | 2024-06-07 11:15 | PC.NURSE ---
Confirmed order for blood administration by phone DR. Arias.
--- NOTE | 2024-06-07 11:16 | PC.SS ---
Patient is alert/oriented. He resides alone. Dx: Spina bifida. Patient is wheelchair bound. He states he is independent and can transfer himself. Patient states he follows with Vandana Sears NP @ [facility]. Patient states he follows with Dr. Morelos -Urologist. Patient states his girlfriend takes him to all appointments. Patient states he prefers to d/c home with home health services. His alt. medical decision maker is his mother, Yesenia. FAmily will transport home.
--- NOTE | 2024-06-07 15:32 | UCCONSULT_ITS ---
RE: JOSE MELGAR : 1990 DATE OF CONSULTATION: 06/06/2024 The patient is admitted in the hospital. CHIEF COMPLAINT: 1. Recurrent urinary tract infection. 2. Spina bifida (wheelchair bound). 3. 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 4. Staghorn calculi in both kidneys. 5. Hypertension. 6. Chronic anemia. HISTORY OF PRESENT ILLNESS: This is a 34-year-old gentleman. He came to the emergency room with history of abdominal and flank pain of 2 weeks' duration. He had urinary frequency. He has no fever, nausea, sweats. Recently, he was discharged home for similar symptoms. The patient was treated in the hospital at that time with antibiotics. He had CAT scan of the abdomen and pelvis done. This is reviewed by me. This revealed bilateral large staghorn calculi, moderate right hydronephrosis, mild left hydronephrosis. Both stents were in satisfactory position. PHYSICAL EXAMINATION: GENERAL: Condition is satisfactory. Orientation x3. HEENT: Normocephalic, atraumatic. Eyes: No anemia or jaundice. NECK: Supple. Trachea is central. Thyroid is not enlarged. EXTREMITIES: Revealed no edema, cyanosis or clubbing. VITAL SIGNS: Vital signs are stable. They are in HPI, in EMR. CHEST: Symmetrical. HEART: Regular rate and rhythm. ABDOMEN: Soft, nontender. VARIOUS LABS: CT scan as mentioned above. Hemoglobin is 7.8, creatinine is 1.5, no leukocytosis. RECOMMENDATION: 1. Urine for culture and sensitivity. 2. Treat with appropriate antibiotics. 3. He is going to be scheduled for replacement of bilateral ureteral stents. DT: 15:57:35 TT: 17:05:00 Ref: - TID: [id number]
[2024-06-07 15:33] LABS: Hematocrit 29.6 % (41.0-53.0)
[2024-06-08] VITALS (12 sets, daily range): BP systolic 107–151; BP diastolic 81–106; PULSE 94–123; RESP 17–99; TEMP -13.3–37.2; O2SAT 94–98
[2024-06-08] MEDS: HYDROmorphone INJ 2 MG/ML VIAL 0.5 MG IVP ×6 (02:30→23:59)
[2024-06-08 06:04] LABS: Basophils % (Auto) 0 % (0-2.5); Immature Granulocytes % (Auto) 0 % (0-0); Immature Granulocytes Auto 0.01 Thou/mm3 (0.00-0.00); Lymphocytes # (Auto) 0.2 Thou/mm3 (1.0-4.8); Mean Corpuscular Hemoglobin 21.5 pg (25.0-35.0); Monocytes # (Auto) 0.8 Thou/mm3 (0.0-0.8); Monocytes % (Auto) 13 % (0-12); Neutrophils % (Auto) 83 % (37-80); Nucleated Red Blood Cell % 0 /100 WBC (0); Red Blood Count 3.95 Miln/mm3 (4.50-5.90)
[2024-06-08 06:05] LABS: Eosinophils % (Auto) 1 % (0-10); Hematocrit 27.5 % (41.0-53.0); Lymphocytes % (Auto) 4 % (10-50); Mean Corpuscular HGB Conc 30.9 g/dl (31.0-37.0); Mean Corpuscular Volume 70 fL (80-100); Neutrophils # (Auto) 5.3 Thou/mm3 (1.8-7.7); Platelet Count 300 Thou/mm3 (140-440); RDW Standard Deviation 49.3 fL (35.1-43.9); White Blood Count 6.4 Thou/mm3 (3.8-10.6)
[2024-06-08 06:07] LABS: Hemoglobin 8.5 g/dL (13.5-16.0)
[2024-06-08 06:49] LABS: Alanine Aminotransferase < 7 U/L (10-49); Albumin, Serum 4.1 gm/dL (3.5-5.0); Albumin/Globulin Ratio 1.4 (1.2-2.2); Alkaline Phosphatase 92 U/L (46-116); Anion Gap 6 (7-16); Aspartate Amino Transferase < 8 U/L (0-34); BUN/Creatinine Ratio 16 Ratio (12-20); Bilirubin,Total 0.8 mg/dL (0.3-1.2); Blood Urea Nitrogen 26 mg/dL (9-23); Calcium 8.8 mg/dL (8.3-10.6); Calcium (Corrected) 8.8 mg/dL (8.5-10.1); Carbon Dioxide 17.7 mMol/L (20.0-31.0); Chloride 104 mMol/L (98-107); Creatinine (Component) 1.6 mg/dL (0.6-1.3); Glucose 94 mg/dL (74-106); Osmolality,Calculated 261 (275-295); Potassium 3.3 mMol/L (3.4-5.1); Sodium 128 mMol/L (136-145); Total Protein 7.1 gm/dL (5.7-8.2); eGFR 58 See Note
[2024-06-08] MEDS: PIPER/TAZO 3.375 GM 3.375 GM/50 ML BAG IV ×3 (08:09→21:23)
[2024-06-08] MEDS: cloNIDine HCL 0.1 MG TABLET PO ×3 (08:09→21:23)
[2024-06-08] MEDS: amLODIPine BESYLATE 5 MG TABLET 10 MG PO (08:09)
[2024-06-08] MEDS: ACETAMINOPHEN 325 MG TABLET 650 MG PO (08:21)
[2024-06-08] MEDS: POTASSIUM CHLORIDE 20 mEq TABCR 40 MEQ PO (08:37)
[2024-06-08] MEDS: POTASSIUM CHLORIDE 20 mEq TABCR PO (10:12)
[2024-06-08] MEDS: SODIUM CHLORIDE 1 GM TABLET PO (13:39)
--- NOTE | 2024-06-08 18:46 | PD.RESPRO ---
Documentation for date of: 06/08/24 Subjective Subjective Interval history: Patient was seen and examined at bedside. No acute events overnight. Today patient still experiencing dysuria and thick, foul-smelling urine. Abdominal pain has not improved and continued to have to have decreased appetite. Patient was counseled on pain management and encouraged to see specialist. Vitals significant for hypertension 150/106, tachycardia 115, respiratory rate 19, remains afebrile. Patient is status post 1 unit PRBC infusion and repeat hemoglobin today 8.5 improving. Patient's sodium 128, potassium 3.3, Osmo 260, and elevated creatinine stable 1.6. Currently patient is status post 1 L maintenance fluids and has been receiving oral hydration. However due to decreasing sodium we will start 1500 fluid restriction and replete sodium with 1 g tablet. Repeat sodium levels today evening. Urine cultures positive for Proteus mirabilis which showed resistance to ceftriaxone therefore patient started on Zosyn today. Will continue to monitor and see if symptoms are improving with change in antibiotics. Hypertension may be due to underlying infection however still poorly controlled therefore increasing clonidine 0.1 twice daily to 3 times daily. Review of systems otherwise negative except what is mentioned above. Exam Vital Signs Temp Pulse Resp BP Pulse Ox O2 Del Method 97.6 F 94 18 107/81 97 Room Air 06/08/24 16:00 06/08/24 16:00 06/08/24 16:00 06/08/24 16:00 06/08/24 16:00 06/08/24 16:00 Narrative Exam General: Alert and oriented x3. HEENT: Atraumatic, normocephalic. No JVD noted. Mucosa moist. Cardiovascular: Normal S1 and S2. Regular rate and rhythm. No pitting edema Respiratory: Lungs are clear to auscultation bilaterally. No wheezing or crackles heard. Abdomen: Soft, nontender, not distended, normal bowel sounds, b/L CVA tenderness Skin: Warm to touch, dry, no rashes noted MSK/extremities: No gross injuries. Able to move all 4 extremities, atrophic b/L LE Neuro: Alert and oriented x3. No focal neuro deficits. Psych: irritated Objective Labs 06/09/24 05:49 06/09/24 05:49 Labs: Laboratory Results - last 24 hr 06/08/24 05:40 WBC 6.4 RBC 3.95 L Hgb 8.5 L Hct 27.5 L MCV 70 L MCH 21.5 L MCHC 30.9 L RDW Std Deviation 49.3 H Plt Count 300 Neut % (Auto) 83 H Lymph % (Auto) 4 L [place] % (Auto) 13 H Eos % (Auto) 1 Baso % (Auto) 0 Neut # (Auto) 5.3 Lymph # (Auto) 0.2 L [place] # (Auto) 0.8 Eos # (Auto) 0.0 Baso # (Auto) 0.0 Immature Gran # (Auto) 0.01 H Absolute Nucleated RBC 0.00 Immature Gran % 0 Nucleated RBC % 0 Sodium 128 L Potassium 3.3 L D Chloride 104 Carbon Dioxide 17.7 L Anion Gap 6 L BUN 26 H Creatinine 1.6 H Estim Creat Clear Calc 43.0 L eGFR 58 L BUN/Creatinine Ratio 16 Glucose 94 Calculated Osmolality 261 L Calcium 8.8 Corrected Calcium 8.8 Total Bilirubin 0.8 AST < 8 ALT < 7 L Alkaline Phosphatase 92 Total Protein 7.1 Albumin 4.1 Globulin 3.0 Albumin/Globulin Ratio 1.4 Quality Measures Quality Measures none Assessment & Plan Assessment Current Active Medications: Generic Name Dose Route Start Last Admin Trade Name Freq PRN Reason Stop Dose Admin Acetaminophen 650 mg 06/07/24 09:16 06/08/24 08:21 Acetaminophen 325 Mg Tablet PO 07/06/24 05:15 650 mg Q6H PRN Administration PAIN 1-3 OR FEVER > 101 Amlodipine Besylate 10 mg 06/07/24 09:00 06/08/24 08:09 Amlodipine Besylate 5 Mg Tablet PO 07/07/24 08:59 10 mg QDAY ARACELY Administration Clonidine 0.1 mg 06/08/24 14:00 06/08/24 13:39 Clonidine Hcl 0.1 Mg Tablet PO 07/08/24 13:59 0.1 mg TID ARACELY Administration Heparin Sodium (Porcine) 5,000 unit 06/06/24 06:00 06/08/24 13:23 Heparin Sod Inj 5000 Unit/Ml Vial SC 06/20/24 05:59 Not Given Q8HR ARACELY Hydromorphone HCl 0.5 mg 06/07/24 09:07 06/08/24 15:56 Hydromorphone Inj 2 Mg/Ml Vial IVP 06/11/24 05:20 0.5 mg Q4H PRN Administration PAIN SCALE 4-6 (Moderate Piperacillin/Tazobactam/Dextrose 3.375 gm in 50 mls @ 12.5 mls/hr 06/08/24 14:00 06/08/24 13:18 Zosyn IV 06/15/24 13:59 12.5 mls/hr Q8HR ARACELY Administration Ondansetron HCl 4 mg 06/06/24 05:16 06/06/24 18:18 Ondansetron Inj 2 Mg/Ml Inj 2 Ml IV 07/06/24 05:15 4 mg Q6H PRN Administration NAUSEA OR VOMITING Protocol Plan Pierce Dixon 34-y/o male with a past medical history of spina bifida (wheelchair-bound), 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 Associated dysuria, dark urine, urinary frequency. Denies fever, chills, nausea, sweats. Saw PCP and given p.o. antibiotics but symptoms persisted and came to ED. Dr. Morelos planned to remove stents next week regarding obstructive renal calculus. Admitted for further management of complicated UTI/hydronephrosis. # Pyelonephritis 2/2 Proteus mirabilis #History of frequent UTI #Bilateral hydronephrosis #Chronic pyelonephritis #Staghorn nephrolithiasis s/p bilateral stent placement Complicated urological history of recurrent UTI, hydronephrosis, nephrolithiasis, status post multiple ureteral stents. Patient does not meet sepsis criteria. CT A/P: Bilateral large staghorn calculi with bilateral ureteral stents. Moderate to advanced right hydronephrosis mild left hydronephrosis -Stop Rocephin--Urine culture resistant ? Continue with Zosyn -Pain management--Dilaudid 0.5 mg IV every 8 HR as needed -preliminary blood cultures were negative -Dr. Morelos has been consulted. He may replace stents next week if patient is still admitted. #pre renal vs post renal TRINI Baseline Cr 1.2 -today Cr 1.6 -Avoid nephrotoxic agents, renally dose medications -Hold home lisinopril in a setting of TRINI -Decrease oral hydration due to worsening hyponatremia ? Restriction of fluid 1500 -daily renal pannel #Hyponatremia 2/2 diluation vs decreased oral intake -Na 128 today -Decreased oral hydration ? Fluid restriction 1500 ? Repeat sodium in the evening ? Replete with 1 g sodium tablet if repeat levels less than 129 #Hypokalemia Potassium 2.7 in ED ?Today 3.3--repleted ? Continue to monitor daily potassium ? Replete as needed to maintain above 4.0 #Chronic microcytic anemia, likely due to iron deficiency ? Monitor with daily CBC -repeat Hb 7.1 s/p x1 unit pRBC -Today hemoglobin 8.5 #History of hypertension ? Clonidine 0.1 mg p.o. 3 times daily #Spina bifida ? Follow-up outpatient Hospital management: Disposition: med surg, UTI tx Diet: Renal Lines: Peripheral DVT prophylaxis: Heparin GI prophylaxis: Not indicated, on diet Baker: Self-caths at home CODE STATUS: full code ----- Plan discussed with attending physician Dr. Frost and senior resident Dr. Graham. Eulalia Arias, PGY-1 I discussed with and supervised the international tax manager physician who took care of this patient. I personally saw and examined the patient and discussed the assessment and plan with the entire medicine team, including my attending Dr. Adkins. I agree with the assessment and plan as documented above. Patient interviewed and examined at bedside this a.m. No acute overnight events. Patient still endorsing markedly elevated pain levels. Patient is requiring IV Dilaudid. Will attempt to de-escalate as needed pain regimen in the coming days. Urine cultures speciated Proteus mirabilis which was only sensitive to Zosyn and aztreonam. Will initiate Zosyn. Urology was consulted on admission due to bilateral hydronephrosis as evidenced on CT. Urology services stated they plan to interchange ureteral stents next week. Patient on review of labs noted to have hyponatremia. Will discontinue IV fluids and administer sodium chloride 1 g. Kulwinder Graham M.D. Internal Medicine PGY-3 Attending Provider Attestation/Addendum I have examined the patient, reviewed labs and imaging findings, discussed the case with the resident(s), and reviewed entered orders. I agree with the plan of care as outlined in this note, with these additional summaries/recommendations: Patient seen at bedside. No acute overnight events. Patient continues to endorse intractable pain requiring IV Dilaudid and will try to de-escalate as tolerated. Urine culture grew Proteus mirabilis sensitive to IV Zosyn and IV Rocephin discontinued. Continue IV Zosyn for treatment of bilateral pyelonephritis. Patient has history of large bilateral staghorn calculi with ureteral stents. Moderate bilateral hydronephrosis seen on admission and urology was consulted. Urology planning on stent removal as early as next week. Hemoglobin stable at 8.5 today and no evidence of bleeding. Patient did receive 1 unit PRBCs on admission. Worsening hypotonic hyponatremia evident on CHEM panel which is most likely secondary to pain/aggressive fluid resuscitation. DC aggressive fluids and give sodium chloride 1 g. Repeat level in AM. TRINI on CKD likely secondary to bilateral pyelonephritis. If worsens we will consider nephrology consult or possibly nephrostomy tubes although both stents appear patent at this time. Mild hypokalemia and replacement given. Dr. Frost
[2024-06-08 21:29] LABS: Anion Gap 6 (7-16); BUN/Creatinine Ratio 17 Ratio (12-20); Blood Urea Nitrogen 27 mg/dL (9-23); Calcium 8.7 mg/dL (8.3-10.6); Carbon Dioxide 19.5 mMol/L (20.0-31.0); Chloride 107 mMol/L (98-107); Creatinine (Component) 1.6 mg/dL (0.6-1.3); Glucose 102 mg/dL (74-106); Osmolality,Calculated 269 (275-295); Potassium 4.6 mMol/L (3.4-5.1); Sodium 132 mMol/L (136-145); eGFR 58 See Note
[2024-06-09] VITALS (9 sets, daily range): BP systolic 111–134; BP diastolic 80–97; PULSE 70–109; RESP 16–18; TEMP 36.2–36.7; O2SAT 97–100; BMI 24.7
[2024-06-09] MEDS: HYDROmorphone INJ 2 MG/ML VIAL 0.5 MG IVP ×5 (04:03→21:10)
[2024-06-09] MEDS: PIPER/TAZO 3.375 GM 3.375 GM/50 ML BAG IV ×3 (05:19→21:50)
[2024-06-09] MEDS: cloNIDine HCL 0.1 MG TABLET PO ×3 (05:22→21:50)
[2024-06-09 06:36] LABS: Basophils % (Auto) 0 % (0-2.5); Eosinophils # (Auto) 0.1 Thou/mm3 (0.0-0.5); Eosinophils % (Auto) 3 % (0-10); Hemoglobin 9.4 g/dL (13.5-16.0); Immature Granulocytes % (Auto) 0 % (0-0); Immature Granulocytes Auto 0.02 Thou/mm3 (0.00-0.00); Lymphocytes # (Auto) 0.6 Thou/mm3 (1.0-4.8); Lymphocytes % (Auto) 13 % (10-50); Mean Corpuscular HGB Conc 30.3 g/dl (31.0-37.0); Mean Corpuscular Hemoglobin 21.2 pg (25.0-35.0); Mean Corpuscular Volume 70 fL (80-100); Monocytes # (Auto) 0.6 Thou/mm3 (0.0-0.8); Monocytes % (Auto) 13 % (0-12); Neutrophils # (Auto) 3.3 Thou/mm3 (1.8-7.7); Neutrophils % (Auto) 70 % (37-80); Nucleated Red Blood Cell % 0 /100 WBC (0); Platelet Count 294 Thou/mm3 (140-440); RDW Standard Deviation 51.1 fL (35.1-43.9); Red Blood Count 4.44 Miln/mm3 (4.50-5.90); White Blood Count 4.7 Thou/mm3 (3.8-10.6)
[2024-06-09 06:43] LABS: Alanine Aminotransferase 10 U/L (10-49); Albumin, Serum 4.1 gm/dL (3.5-5.0); Albumin/Globulin Ratio 1.3 (1.2-2.2); Alkaline Phosphatase 92 U/L (46-116); Anion Gap 7 (7-16); Aspartate Amino Transferase 27 U/L (0-34); BUN/Creatinine Ratio 13 Ratio (12-20); Bilirubin,Total 0.7 mg/dL (0.3-1.2); Blood Urea Nitrogen 20 mg/dL (9-23); Calcium 9.1 mg/dL (8.3-10.6); Calcium (Corrected) 9.1 mg/dL (8.5-10.1); Carbon Dioxide 16.7 mMol/L (20.0-31.0); Chloride 107 mMol/L (98-107); Creatinine (Component) 1.6 mg/dL (0.6-1.3); Globulin 3.2 gm/dL (2.3-3.5); Glucose 91 mg/dL (74-106); Osmolality,Calculated 265 (275-295); Phosphorous 2.5 mg/dL (2.4-5.1); Potassium 4.6 mMol/L (3.4-5.1); Sodium 131 mMol/L (136-145); Total Protein 7.3 gm/dL (5.7-8.2); eGFR 58 See Note
[2024-06-09] MEDS: amLODIPine BESYLATE 5 MG TABLET 10 MG PO (08:03)
--- NOTE | 2024-06-09 15:44 | ESPR_ITS ---
Documentation for date of: 06/09/24 Subjective Subjective Interval history: Patient was seen and examined at bedside. No acute events overnight. Per nursing,?patient is requesting for additional pain management. States that today he is feeling better with improved appetite but still has dysuria and poorly controlled pain. Blood pressure improved today after switching patient to clonidine 0.1 3 times daily. Sodium 131, hemoglobin improving 9.4, creatinine stable 1.6. Continue monitoring electrolytes and discontinue fluid restriction. Start patient onTramadol 100 mg p.o. every 6 HR as needed in addition to 0.5 Dilaudid. This is second day of Zosyn antibiotic. Keep patient until Tuesday for additional evaluation by Dr Morelos for treatment of staghorn calculi and replacement of new stents. Review of systems otherwise negative except what is mentioned above. Exam Vital Signs Temp Pulse Resp BP Pulse Ox O2 Del Method 98.0 F 99 18 132/95 H 99 Room Air 06/09/24 11:46 06/09/24 13:39 06/09/24 11:46 06/09/24 13:39 06/09/24 11:46 06/09/24 11:46 Narrative Exam General: Alert and oriented x3. HEENT: Atraumatic, normocephalic. No JVD noted. Mucosa moist. Cardiovascular: Normal S1 and S2. Regular rate and rhythm. No pitting edema Respiratory: Lungs are clear to auscultation bilaterally. No wheezing or crackles heard. Abdomen: Soft, nontender, not distended, normal bowel sounds, LLQ pain and left CVA tenderness Skin: Warm to touch, dry, no rashes noted MSK/extremities: No gross injuries. Able to move all 4 extremities, atrophic b/L LE Neuro: Alert and oriented x3. No focal neuro deficits. Psych: irritated Objective Labs 06/10/24 09:20 06/10/24 09:20 Labs: Laboratory Results - last 24 hr 06/08/24 06/09/24 20:35 05:49 WBC 4.7 RBC 4.44 L Hgb 9.4 L Hct 31.0 L MCV 70 L MCH 21.2 L MCHC 30.3 L RDW Std Deviation 51.1 H Plt Count 294 Neut % (Auto) 70 Lymph % (Auto) 13 [place] % (Auto) 13 H Eos % (Auto) 3 Baso % (Auto) 0 Neut # (Auto) 3.3 Lymph # (Auto) 0.6 L [place] # (Auto) 0.6 Eos # (Auto) 0.1 Baso # (Auto) 0.0 Immature Gran # (Auto) 0.02 H Absolute Nucleated RBC 0.00 Immature Gran % 0 Nucleated RBC % 0 Sodium 132 L 131 L Potassium 4.6 D 4.6 Chloride 107 107 Carbon Dioxide 19.5 L 16.7 L Anion Gap 6 L 7 BUN 27 H 20 Creatinine 1.6 H 1.6 H Estim Creat Clear Calc 43.0 L 43.0 L eGFR 58 L 58 L BUN/Creatinine Ratio 17 13 Glucose 102 91 Calculated Osmolality 269 L 265 L Calcium 8.7 9.1 Corrected Calcium 9.1 Phosphorus 2.5 Total Bilirubin 0.7 AST 27 ALT 10 Alkaline Phosphatase 92 Total Protein 7.3 Albumin 4.1 Globulin 3.2 Albumin/Globulin Ratio 1.3 Quality Measures Quality Measures none Assessment & Plan Assessment Current Active Medications: Generic Name Dose Route Start Last Admin Trade Name Freq PRN Reason Stop Dose Admin Acetaminophen 650 mg 06/07/24 09:16 06/08/24 08:21 Acetaminophen 325 Mg Tablet PO 07/06/24 05:15 650 mg Q6H PRN Administration PAIN 1-3 OR FEVER > 101 Amlodipine Besylate 10 mg 06/07/24 09:00 06/09/24 08:03 Amlodipine Besylate 5 Mg Tablet PO 07/07/24 08:59 10 mg QDAY ARACELY Administration Clonidine 0.1 mg 06/08/24 14:00 06/09/24 13:39 Clonidine Hcl 0.1 Mg Tablet PO 07/08/24 13:59 0.1 mg TID ARACELY Administration Heparin Sodium (Porcine) 5,000 unit 06/06/24 06:00 06/09/24 14:26 Heparin Sod Inj 5000 Unit/Ml Vial SC 06/20/24 05:59 Not Given Q8HR ARACELY Hydromorphone HCl 0.5 mg 06/07/24 09:07 06/09/24 12:14 Hydromorphone Inj 2 Mg/Ml Vial IVP 06/11/24 05:20 0.5 mg Q4H PRN Administration PAIN SCALE 4-6 (Moderate Piperacillin/Tazobactam/Dextrose 3.375 gm in 50 mls @ 12.5 mls/hr 06/08/24 14:00 06/09/24 13:39 Zosyn IV 06/15/24 13:59 12.5 mls/hr Q8HR ARACELY Administration Ondansetron HCl 4 mg 06/06/24 05:16 06/06/24 18:18 Ondansetron Inj 2 Mg/Ml Inj 2 Ml IV 07/06/24 05:15 4 mg Q6H PRN Administration NAUSEA OR VOMITING Protocol Tramadol HCl 100 mg 06/09/24 14:55 Tramadol Hcl 50 Mg Tablet PO 06/14/24 14:54 Q6HR PRN PAIN SCALE 7-10(SEVERE) Plan Pierce Dixon 34-y/o male with a past medical history of spina bifida (wheelchair-bound), 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 Associated dysuria, dark urine, urinary frequency. Denies fever, chills, nausea, sweats. Saw PCP and given p.o. antibiotics but symptoms persisted and came to ED. Dr. Morelos planned to remove stents next week regarding obstructive renal calculus. Admitted for further management of complicated UTI/hydronephrosis. # Pyelonephritis 2/2 Proteus mirabilis #History of frequent UTI #Bilateral hydronephrosis #Chronic pyelonephritis #Staghorn nephrolithiasis s/p bilateral stent placement Complicated urological history of recurrent UTI, hydronephrosis, nephrolithiasis, status post multiple ureteral stents. Patient does not meet sepsis criteria. CT A/P: Bilateral large staghorn calculi with bilateral ureteral stents. Moderate to advanced right hydronephrosis mild left hydronephrosis -stopped rocefin yesterday due to insensitivity ? Continue with Zosyn -Pain management--Dilaudid 0.5 mg IV every 8 HR as needed -now also tramadol 100 mg p.o. every 6 HR as needed -preliminary blood cultures were negative -Dr. Morelos has been consulted. He may replace stents next week if patient is still admitted. #Acute kidney injury Baseline Cr 1.2 -today Cr 1.6 -Avoid nephrotoxic agents, renally dose medications -Hold home lisinopril in a setting of TRINI -stop fluid restriction -hydrate as needed -daily renal pannel #NAGMA Loss of bicarb versus decreased renal acid production Today bicarb decreased to 16. May be component of underlying RTA ? Continue to monitor bicarb ? Consider repleating if less than 12 #Hyponatremia 2/2 dilution-resolving -Na 131 today ?Fluid restriction removed ? Continue monitoring of sodium -Will replete as needed #Hypokalemia-resolved Potassium 2.7 in ED ?Today 4.6 ? Continue to monitor daily potassium ? Replete as needed to maintain above 4.0 #Chronic microcytic anemia, likely due to iron deficiency -s/p x1 unit PRBC ? Today hemoglobin 9.4 improving ? Monitor with daily CBC #History of hypertension ? Clonidine 0.1 mg p.o. 3 times daily #Spina bifida ? Follow-up outpatient Hospital management: Disposition: med surg, UTI tx Diet: Renal Lines: Peripheral DVT prophylaxis: Heparin GI prophylaxis: Not indicated, on diet Baker: Self-caths at home CODE STATUS: full code ----- Plan discussed with attending physician Dr. Frost and senior resident Dr. Graham. Eulalia Arias, PGY-1 LI discussed with and supervised the global marketing intern physician who took care of this patient. I personally saw and examined the patient and discussed the assessment and plan with the entire medicine team, including my attending Dr. Santosh AMARO. I agree with the assessment and plan as documented above. Patient interviewed and examined at bedside this a.m. No acute overnight events reported. Patient continues to have extreme pain requiring IV Dilaudid. Will add tramadol for longer acting pain management. Urine culture speciated Proteus mirabilis showing sensitivity to Zosyn. Will continue IV antibiotics until evaluation by urology service for possible urological intervention and stent interchange. Kulwinder Graham M.D. Internal Medicine PGY3 Attending Provider Attestation/Addendum I have examined the patient, reviewed labs and imaging findings, discussed the case with the resident(s), and reviewed entered orders. I agree with the plan of care as outlined in this note, with these additional summaries/recommendations: Patient seen at bedside. No acute overnight events. Patient continues to endorse intractable pain requiring IV Dilaudid and will try to de-escalate as tolerated. Discussed with patient that we will use oral tramadol and as needed IV diluadid for breakthrough pain. Urine culture grew Proteus mirabilis sensitive to IV Zosyn and IV Rocephin discontinued. Continue IV Zosyn for treatment of bilateral pyelonephritis. Proteus only senstivie to IV abx and patient to remain hospitalized for IV abx. Patient has history of large bilateral staghorn calculi with ureteral stents. Moderate bilateral hydronephrosis seen on admission and urology was consulted. Urology planning on stent removal as early as next week. Hydronephrosis appears chronic and seen on previous imaging studies. Hemoglobin stable at 8.5 today and no evidence of bleeding. Patient did receive 1 unit PRBCs on admission. Hyponatremia improved and DC fluid restriction. Continue to monitor sodium closely. TRINI on CKD stable. Cr 1.6 today and unchanged from previous. Continue to avoid nephrotoxic agents and renally dose medications. Repeat hematology and chemistry panel in AM. Dr. Frost
[2024-06-09] MEDS: traMADol HCL 50 MG TABLET 100 MG PO (22:20)
[2024-06-10] VITALS (10 sets, daily range): BP systolic 103–136; BP diastolic 71–98; PULSE 82–93; RESP 16–18; TEMP 36.1–36.6; O2SAT 97–100
[2024-06-10] MEDS: HYDROmorphone INJ 2 MG/ML VIAL 0.5 MG IVP ×2 (03:32→08:42)
[2024-06-10] MEDS: traMADol HCL 50 MG TABLET 100 MG PO (05:30)
[2024-06-10] MEDS: cloNIDine HCL 0.1 MG TABLET PO ×3 (06:01→22:36)
[2024-06-10] MEDS: PIPER/TAZO 3.375 GM 3.375 GM/50 ML BAG IV ×3 (06:02→21:22)
[2024-06-10] MEDS: amLODIPine BESYLATE 5 MG TABLET 10 MG PO (08:43)
--- NOTE | 2024-06-10 09:09 | PC.SS ---
SS follow up note; Urology stint replacement pending.
[2024-06-10 10:02] LABS: Basophils % (Auto) 0 % (0-2.5); Eosinophils # (Auto) 0.2 Thou/mm3 (0.0-0.5); Eosinophils % (Auto) 3 % (0-10); Hematocrit 31.9 % (41.0-53.0); Hemoglobin 9.6 g/dL (13.5-16.0); Immature Granulocytes % (Auto) 0 % (0-0); Immature Granulocytes Auto 0.02 Thou/mm3 (0.00-0.00); Lymphocytes # (Auto) 0.9 Thou/mm3 (1.0-4.8); Lymphocytes % (Auto) 12 % (10-50); Mean Corpuscular HGB Conc 30.1 g/dl (31.0-37.0); Mean Corpuscular Hemoglobin 21.3 pg (25.0-35.0); Mean Corpuscular Volume 71 fL (80-100); Monocytes # (Auto) 0.6 Thou/mm3 (0.0-0.8); Monocytes % (Auto) 8 % (0-12); Neutrophils # (Auto) 5.5 Thou/mm3 (1.8-7.7); Neutrophils % (Auto) 76 % (37-80); Nucleated Red Blood Cell % 0 /100 WBC (0); Platelet Count 354 Thou/mm3 (140-440); RDW Standard Deviation 52.5 fL (35.1-43.9); White Blood Count 7.3 Thou/mm3 (3.8-10.6)
[2024-06-10 10:33] LABS: Alanine Aminotransferase 8 U/L (10-49); Albumin, Serum 4.4 gm/dL (3.5-5.0); Albumin/Globulin Ratio 1.3 (1.2-2.2); Alkaline Phosphatase 95 U/L (46-116); Anion Gap 10 (7-16); Aspartate Amino Transferase 12 U/L (0-34); BUN/Creatinine Ratio 12 Ratio (12-20); Bilirubin,Total 0.6 mg/dL (0.3-1.2); Blood Urea Nitrogen 19 mg/dL (9-23); Calcium 9.5 mg/dL (8.3-10.6); Calcium (Corrected) 9.5 mg/dL (8.5-10.1); Carbon Dioxide 18.1 mMol/L (20.0-31.0); Chloride 104 mMol/L (98-107); Creatinine (Component) 1.6 mg/dL (0.6-1.3); Globulin 3.5 gm/dL (2.3-3.5); Glucose 114 mg/dL (74-106); Osmolality,Calculated 267 (275-295); Potassium 3.4 mMol/L (3.4-5.1); Sodium 132 mMol/L (136-145); Total Protein 7.9 gm/dL (5.7-8.2); eGFR 58 See Note
[2024-06-10] MEDS: POTASSIUM CHLORIDE 20 mEq TABCR 40 MEQ PO (11:28)
[2024-06-10] MEDS: HYDROmorphone INJ 2 MG/ML VIAL 1 MG IVP ×3 (13:50→22:32)
--- NOTE | 2024-06-10 13:53 | PD.RESPRO ---
Documentation for date of: 06/10/24 Subjective Subjective Interval history: 06/10/2024: No acute overnight events to report. Patient seen and examined in hospital bed remains in stable status; reports persistent lower back and abdominal pain secondary to chronic hydronephrosis and renal calculi. Patient's pain medications were adjusted with IV Dilaudid increased from 0.5 mg to 1 mg every hour for severe pain; will likely decrease back to 0.5 mg on 06/11. Dr. Morelos, urology, is expected to see the patient tomorrow on 06/11; appreciate recommendations. Continuing IV antibiotics for Proteus pyelonephritis. Exam Vital Signs Temp Pulse Resp BP Pulse Ox O2 Del Method 97.1 F 92 18 136/92 H 98 Room Air 06/10/24 11:44 06/10/24 13:50 06/10/24 11:44 06/10/24 13:50 06/10/24 11:44 06/10/24 11:44 Narrative Exam General: Awake, answering questions appropriately HEENT: Atraumatic, normocephalic. No JVD noted. Mucosa moist. Cardiovascular: Normal S1 and S2. Regular rate and rhythm. No pitting edema Respiratory: Lungs are clear to auscultation bilaterally. No wheezing or crackles heard. Abdomen: Soft, nontender, not distended, normal bowel sounds, LLQ pain and left CVA tenderness Skin: Warm to touch, dry, no rashes noted MSK/extremities: No gross injuries. Able to move all 4 extremities, atrophic b/L LE Neuro: Alert and oriented x3. No focal neuro deficits. Objective Labs 06/10/24 09:20 06/10/24 09:20 Labs: Laboratory Results - last 24 hr 06/10/24 09:20 WBC 7.3 D RBC 4.50 Hgb 9.6 L Hct 31.9 L MCV 71 L MCH 21.3 L MCHC 30.1 L RDW Std Deviation 52.5 H Plt Count 354 D Neut % (Auto) 76 Lymph % (Auto) 12 [place] % (Auto) 8 Eos % (Auto) 3 Baso % (Auto) 0 Neut # (Auto) 5.5 Lymph # (Auto) 0.9 L [place] # (Auto) 0.6 Eos # (Auto) 0.2 Baso # (Auto) 0.0 Immature Gran # (Auto) 0.02 H Absolute Nucleated RBC 0.00 Immature Gran % 0 Nucleated RBC % 0 Sodium 132 L Potassium 3.4 D Chloride 104 Carbon Dioxide 18.1 L Anion Gap 10 BUN 19 Creatinine 1.6 H Estim Creat Clear Calc 43.0 L eGFR 58 L BUN/Creatinine Ratio 12 Glucose 114 H Calculated Osmolality 267 L Calcium 9.5 Corrected Calcium 9.5 Total Bilirubin 0.6 AST 12 ALT 8 L Alkaline Phosphatase 95 Total Protein 7.9 Albumin 4.4 Globulin 3.5 Albumin/Globulin Ratio 1.3 Quality Measures Quality Measures none Assessment & Plan Assessment Current Active Medications: Generic Name Dose Route Start Last Admin Trade Name Freq PRN Reason Stop Dose Admin Acetaminophen 650 mg 06/07/24 09:16 06/08/24 08:21 Acetaminophen 325 Mg Tablet PO 07/06/24 05:15 650 mg Q6H PRN Administration PAIN 1-3 OR FEVER > 101 Amlodipine Besylate 10 mg 06/07/24 09:00 06/10/24 08:43 Amlodipine Besylate 5 Mg Tablet PO 07/07/24 08:59 10 mg QDAY ARACELY Administration Clonidine 0.1 mg 06/08/24 14:00 06/10/24 13:50 Clonidine Hcl 0.1 Mg Tablet PO 07/08/24 13:59 0.1 mg TID ARACELY Administration Heparin Sodium (Porcine) 5,000 unit 06/06/24 06:00 06/10/24 13:30 Heparin Sod Inj 5000 Unit/Ml Vial SC 06/20/24 05:59 Not Given Q8HR ARACELY Hydromorphone HCl 1 mg 06/10/24 10:38 06/10/24 13:50 Hydromorphone Inj 2 Mg/Ml Vial IVP 06/11/24 05:20 1 mg Q4H PRN Administration PAIN SCALE 4-6 (Moderate Piperacillin/Tazobactam/Dextrose 3.375 gm in 50 mls @ 12.5 mls/hr 06/08/24 14:00 06/10/24 13:51 Zosyn IV 06/15/24 13:59 12.5 mls/hr Q8HR ARACELY Administration Ondansetron HCl 4 mg 06/06/24 05:16 06/06/24 18:18 Ondansetron Inj 2 Mg/Ml Inj 2 Ml IV 07/06/24 05:15 4 mg Q6H PRN Administration NAUSEA OR VOMITING Protocol Tramadol HCl 100 mg 06/09/24 14:55 06/10/24 05:30 Tramadol Hcl 50 Mg Tablet PO 06/14/24 14:54 100 mg Q6HR PRN Administration PAIN SCALE 7-10(SEVERE) Plan 34-y/o male with a past medical history of 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 Morelos, recommendations. # Pyelonephritis 2/2 Proteus mirabilis #History of frequent UTI #Bilateral hydronephrosis #Chronic pyelonephritis #Staghorn nephrolithiasis s/p bilateral stent placement Complicated urological history of recurrent UTI, hydronephrosis, nephrolithiasis, status post multiple ureteral stents. Patient does not meet sepsis criteria. CT A/P: Bilateral large staghorn calculi with bilateral ureteral stents. Moderate to advanced right hydronephrosis mild left hydronephrosis Blood cultures negative Plan: Continue with Zosyn Increased Dilaudid to 1 mg IV every 8 HR as needed; plan to wean on 06/11 Continue tramadol 100 mg p.o. every [address] Morelos has been consulted. He may replace stents next week if patient is still admitted. #Acute kidney injury #NAGMA, improving #Electrolyre abnormalities Likely secondary to prerenal azotemia, poor po intake vs. chronic hydronephrosis Baseline Cr 1.2 Cr 1.6 Plan: Avoid nephrotoxic agents, renally dose medications Continue to hold home lisinopril in a setting of TRINI Encourage oral hydration Daily renal pannel Replete electrolytes as needed #Chronic microcytic anemia, improving likely due to iron deficiency s/p x1 unit PRBC Hemoglobin 9.6 uptrending Plan: Monitor with daily CBC #History of hypertension On home clonidine 0.1 mg p.o. 3 times daily and amlodipine 10mg po qday Plan: Continue home meds Hospital Management: Lines: PIV Diet: Renal Baker: Self-caths at home DVT prophylaxis: Heparin GI prophylaxis: Not indicated, on diet Dispo: Awaiting urology recs Code: Full Patient seen and examined with attending Dr. Santosh Navarro, PGY-1 Attending Provider Attestation/Addendum I have examined the patient, reviewed labs and imaging findings, discussed the case with the resident(s), and reviewed entered orders. I agree with the plan of care as outlined in this note, with these additional summaries/recommendations: Patient seen at bedside. No acute overnight events. Patient continues to endorse intractable pain requiring IV Dilaudid and will increase dose today with plans to wean tomorrow. Continue oral tramadol and as needed IV diluadid for breakthrough pain. Urine culture grew Proteus mirabilis sensitive to IV Zosyn and IV Rocephin discontinued. Continue IV Zosyn for treatment of bilateral pyelonephritis. Proteus only senstivie to IV abx and patient to remain hospitalized for IV abx. Patient has history of large bilateral staghorn calculi with ureteral stents. Moderate bilateral hydronephrosis seen on admission and urology was consulted. Urology planning on stent removal as early as next week. Hydronephrosis appears chronic and seen on previous imaging studies. Hemoglobin stable at and no evidence of bleeding. Patient did receive 1 unit PRBCs on admission. Hyponatremia improved and DC fluid restriction. Continue to monitor sodium closely. TRINI on CKD stable. Cr 1.6 today and unchanged from previous. Continue to avoid nephrotoxic agents and renally dose medications. Repeat hematology and chemistry panel in AM. Dr. Frost
[2024-06-11] VITALS (10 sets, daily range): BP systolic 108–136; BP diastolic 79–98; PULSE 77–91; RESP 17–18; TEMP 36.1–36.9; O2SAT 98–100
[2024-06-11] MEDS: HYDROmorphone INJ 2 MG/ML VIAL 1 MG IVP ×6 (02:35→22:43)
[2024-06-11 05:43] LABS: Basophils % (Auto) 0 % (0-2.5); Eosinophils # (Auto) 0.3 Thou/mm3 (0.0-0.5); Eosinophils % (Auto) 5 % (0-10); Hematocrit 29.5 % (41.0-53.0); Immature Granulocytes % (Auto) 0 % (0-0); Immature Granulocytes Auto 0.02 Thou/mm3 (0.00-0.00); Lymphocytes # (Auto) 1.1 Thou/mm3 (1.0-4.8); Lymphocytes % (Auto) 22 % (10-50); Mean Corpuscular HGB Conc 29.8 g/dl (31.0-37.0); Mean Corpuscular Hemoglobin 21.1 pg (25.0-35.0); Mean Corpuscular Volume 71 fL (80-100); Monocytes # (Auto) 0.5 Thou/mm3 (0.0-0.8); Monocytes % (Auto) 11 % (0-12); Neutrophils % (Auto) 61 % (37-80); Nucleated Red Blood Cell % 0 /100 WBC (0); Platelet Count 354 Thou/mm3 (140-440); RDW Standard Deviation 52.8 fL (35.1-43.9); Red Blood Count 4.17 Miln/mm3 (4.50-5.90); White Blood Count 4.8 Thou/mm3 (3.8-10.6)
[2024-06-11 05:46] LABS: Hemoglobin 8.8 g/dL (13.5-16.0)
[2024-06-11] MEDS: PIPER/TAZO 3.375 GM 3.375 GM/50 ML BAG IV ×3 (06:09→22:00)
[2024-06-11] MEDS: cloNIDine HCL 0.1 MG TABLET PO ×3 (06:11→21:58)
[2024-06-11 07:08] LABS: Alanine Aminotransferase 9 U/L (10-49); Albumin, Serum 4.2 gm/dL (3.5-5.0); Albumin/Globulin Ratio 1.3 (1.2-2.2); Alkaline Phosphatase 80 U/L (46-116); Anion Gap 9 (7-16); Aspartate Amino Transferase 16 U/L (0-34); BUN/Creatinine Ratio 14 Ratio (12-20); Bilirubin,Total 0.5 mg/dL (0.3-1.2); Blood Urea Nitrogen 23 mg/dL (9-23); Calcium 9.2 mg/dL (8.3-10.6); Calcium (Corrected) 9.2 mg/dL (8.5-10.1); Carbon Dioxide 20.8 mMol/L (20.0-31.0); Chloride 105 mMol/L (98-107); Creatinine (Component) 1.7 mg/dL (0.6-1.3); Estimated Creatinine Clearance 40.5 mL/min (>60); Globulin 3.2 gm/dL (2.3-3.5); Glucose 91 mg/dL (74-106); Osmolality,Calculated 273 (275-295); Potassium 4.2 mMol/L (3.4-5.1); Sodium 135 mMol/L (136-145); Total Protein 7.4 gm/dL (5.7-8.2); eGFR 54 See Note
[2024-06-11] MEDS: amLODIPine BESYLATE 5 MG TABLET 10 MG PO (08:12)
--- NOTE | 2024-06-11 10:11 | PC.SS ---
rounding note: Patient on i.v. antibiotics. Pending Urology rec's. Patient in a lot of pain. D/c plan is to resume home with home health.
--- NOTE | 2024-06-11 13:24 | ESPR_ITS ---
<Statement entered by Harleen Cevallos MD - 06/11/24 15:13> Patient seen and examined at bedside. No acute overnight events reported. Urology was contacted and patient is scheduled for stent replacement on 06/13/24. Will continue with IV Zosyn and current pain regimen for now. Patient denies any complaints at this time. I discussed with and supervised the machine learning intern physician who took care of this patient. I personally saw and examined the patient and discussed the assessment and plan with the entire medicine team, including my attending , I agree with most of the assessment and plan as documented below Harleen Cevallos M.D. PGY-2 Documentation for date of: 06/11/24 Subjective Subjective Interval history: Patient was seen and examined at bedside. No acute events overnight. Patient continues to have LL abdominal/back pain even after increasing Dilaudid to 1 mg. Blood pressure continues to remain well controlled with clonidine 0.1 TID. Hyponatremia resolving after fluid restriction--today 135. Hb stable 8.8 since 1 unit pRBC infusion on 06/07/24, creatinine stable 1.7. Dr. Morelos was contacted today. Stated that he will see patient on Tuesday06/13/24 for stent replacement. Continue IV Zosyn and 1 mg Dilaudid. Review of systems otherwise negative except what is mentioned above. Exam Vital Signs Temp Pulse Resp BP Pulse Ox O2 Del Method 98.2 F 91 18 122/81 99 Room Air 06/11/24 12:00 06/11/24 12:00 06/11/24 12:00 06/11/24 12:00 06/11/24 12:00 06/11/24 12:00 Narrative Exam General: Awake, answering questions appropriately HEENT: Atraumatic, normocephalic. No JVD noted. Mucosa moist. Cardiovascular: Normal S1 and S2. Regular rate and rhythm. No pitting edema Respiratory: Lungs are clear to auscultation bilaterally. No wheezing or crackles heard. Abdomen: Soft, nontender, not distended, normal bowel sounds, LLQ pain and left CVA tenderness Skin: Warm to touch, dry, no rashes noted MSK/extremities: No gross injuries. Able to move all 4 extremities, atrophic b/L LE Neuro: Alert and oriented x3. No focal neuro deficits. Objective Labs 11/18/24 04:53 06/11/24 04:53 Labs: Laboratory Results - last 24 hr 06/11/24 04:53 WBC 4.8 RBC 4.17 L Hgb 8.8 L Hct 29.5 L MCV 71 L MCH 21.1 L MCHC 29.8 L RDW Std Deviation 52.8 H Plt Count 354 Neut % (Auto) 61 Lymph % (Auto) 22 [place] % (Auto) 11 Eos % (Auto) 5 Baso % (Auto) 0 Neut # (Auto) 3.0 Lymph # (Auto) 1.1 [place] # (Auto) 0.5 Eos # (Auto) 0.3 Baso # (Auto) 0.0 Immature Gran # (Auto) 0.02 H Absolute Nucleated RBC 0.00 Immature Gran % 0 Nucleated RBC % 0 Sodium 135 L Potassium 4.2 D Chloride 105 Carbon Dioxide 20.8 Anion Gap 9 BUN 23 Creatinine 1.7 H Estim Creat Clear Calc 40.5 L eGFR 54 L BUN/Creatinine Ratio 14 Glucose 91 Calculated Osmolality 273 L Calcium 9.2 Corrected Calcium 9.2 Total Bilirubin 0.5 AST 16 ALT 9 L Alkaline Phosphatase 80 Total Protein 7.4 Albumin 4.2 Globulin 3.2 Albumin/Globulin Ratio 1.3 Quality Measures Quality Measures none Assessment & Plan Assessment Current Active Medications: Generic Name Dose Route Start Last Admin Trade Name Freromi PRN Reason Stop Dose Admin Acetaminophen 650 mg 06/07/24 09:16 06/08/24 08:21 Acetaminophen 325 Mg Tablet PO 07/06/24 05:15 650 mg Q6H PRN Administration PAIN 1-3 OR FEVER > 101 Amlodipine Besylate 10 mg 06/07/24 09:00 06/11/24 08:12 Amlodipine Besylate 5 Mg Tablet PO 07/07/24 08:59 10 mg QDAY ARACELY Administration Clonidine 0.1 mg 06/08/24 14:00 06/11/24 06:11 Clonidine Hcl 0.1 Mg Tablet PO 07/08/24 13:59 0.1 mg TID ARACELY Administration Heparin Sodium (Porcine) 5,000 unit 06/06/24 06:00 06/11/24 06:09 Heparin Sod Inj 5000 Unit/Ml Vial SC 06/20/24 05:59 Not Given Q8HR ARACELY Hydromorphone HCl 1 mg 06/11/24 06:03 06/11/24 10:24 Hydromorphone Inj 2 Mg/Ml Vial IVP 06/16/24 06:02 1 mg Q4HR PRN Administration PAIN SCALE 4-6 (Moderate Piperacillin/Tazobactam/Dextrose 3.375 gm in 50 mls @ 12.5 mls/hr 06/08/24 14:00 06/11/24 06:09 Zosyn IV 06/15/24 13:59 12.5 mls/hr Q8HR ARACELY Administration Ondansetron HCl 4 mg 06/06/24 05:16 06/06/24 18:18 Ondansetron Inj 2 Mg/Ml Inj 2 Ml IV 07/06/24 05:15 4 mg Q6H PRN Administration NAUSEA OR VOMITING Protocol Tramadol HCl 100 mg 06/09/24 14:55 06/10/24 05:30 Tramadol Hcl 50 Mg Tablet PO 06/14/24 14:54 100 mg Q6HR PRN Administration PAIN SCALE 7-10(SEVERE) Plan Pierce Dixon 34-y/o male with a past medical history of spina bifida (wheelchair-bound), 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 Associated dysuria, dark urine, urinary frequency. Denies fever, chills, nausea, sweats. Saw PCP and given p.o. antibiotics but symptoms persisted and came to ED. Dr. Morelos planned to remove stents next week regarding obstructive renal calculus. Admitted for further management of complicated UTI/hydronephrosis. # Pyelonephritis 2/2 Proteus mirabilis #History of frequent UTI #Bilateral hydronephrosis #Chronic pyelonephritis #Staghorn nephrolithiasis s/p bilateral stent placement Complicated urological history of recurrent UTI, hydronephrosis, nephrolithiasis, status post multiple ureteral stents. Patient does not meet sepsis criteria. CT A/P: Bilateral large staghorn calculi with bilateral ureteral stents. Moderate to advanced right hydronephrosis mild left hydronephrosis -stopped rocefin yesterday due to insensitivity ? Continue with Zosyn -Pain management--Dilaudid 1 mg IV every 8 HR as needed -now also tramadol 100 mg p.o. every 6 HR as needed -preliminary blood cultures were negative -Dr. Morelos has been consulted. Planning to replace stents on Tue06/13/24 #Acute kidney injury Baseline Cr 1.2 -today Cr 1.7 -Avoid nephrotoxic agents, renally dose medications -Hold home lisinopril in a setting of TRINI -stop fluid restriction -hydrate as needed -daily renal pannel #Hyponatremia 2/2 dilution-resolved -Na 135 today ?Fluid restriction removed ? Continue monitoring of sodium -Will replete as needed #Hypokalemia-resolved ? Continue to monitor daily potassium ? Replete as needed to maintain above 4.0 #Chronic microcytic anemia, likely due to iron deficiency -s/p x1 unit PRBC on 06/07/24 ? Today hemoglobin 8.8--has remained stable ? Monitor with daily CBC #History of hypertension ? Clonidine 0.1 mg p.o. 3 times daily #Spina bifida ? Follow-up outpatient Hospital management: Disposition: med surg, UTI tx, Dr. Morelos will see pt on Tue06/13/24 Diet: Renal Lines: Peripheral DVT prophylaxis: Heparin GI prophylaxis: Not indicated, on diet Baker: Self-caths at home CODE STATUS: full code Plan discussed with attending physician Dr. Frost and senior resident Dr. Cevallos. Eulalia Arias, PGY-1 Attending Provider Attestation/Addendum I have examined the patient, reviewed labs and imaging findings, discussed the case with the resident(s), and reviewed entered orders. I agree with the plan of care as outlined in this note, with these additional summaries/recommendations: Patient seen at bedside. No acute overnight events. Patient continues to endorse intractable pain requiring IV Dilaudid. Continue oral tramadol and as needed IV diluadid for breakthrough pain. Urine culture grew Proteus mirabilis sensitive to IV Zosyn which we will continue. Continue IV Zosyn for treatment of bilateral pyelonephritis. Proteus only senstivie to IV abx and patient to remain hospitalized for IV abx. Patient has history of large bilateral staghorn calculi with ureteral stents. Moderate bilateral hydronephrosis seen on admission and urology was consulted. Urology planning on stent removal possibly this week. Hydronephrosis appears chronic and seen on previous imaging studies. Acute kidney injury present with Cr 1.7 today. Hydronephrosis appears chronic and unlikely contributing to TRINI although appreciate urology recommendations if nephrostomy tubes are needed. Continue to avoid nephrotoxic agents and renally dose medications. Repeat hematology and chemistry panel in AM. Dr. Frost
[2024-06-12] VITALS (10 sets, daily range): BP systolic 107–137; BP diastolic 77–92; PULSE 77–91; RESP 16–18; TEMP 36.2–36.7; O2SAT 98–99
[2024-06-12] MEDS: HYDROmorphone INJ 2 MG/ML VIAL 1 MG IVP ×5 (02:28→20:32)
[2024-06-12] MEDS: traMADol HCL 50 MG TABLET 100 MG PO ×2 (03:20→09:53)
[2024-06-12] MEDS: PIPER/TAZO 3.375 GM 3.375 GM/50 ML BAG IV ×3 (05:10→21:35)
[2024-06-12] MEDS: cloNIDine HCL 0.1 MG TABLET PO ×3 (05:12→21:35)
[2024-06-12 06:29] LABS: Basophils % (Auto) 1 % (0-2.5); Eosinophils # (Auto) 0.2 Thou/mm3 (0.0-0.5); Eosinophils % (Auto) 4 % (0-10); Hematocrit 28.9 % (41.0-53.0); Immature Granulocytes % (Auto) 0 % (0-0); Immature Granulocytes Auto 0.01 Thou/mm3 (0.00-0.00); Lymphocytes # (Auto) 1.1 Thou/mm3 (1.0-4.8); Lymphocytes % (Auto) 20 % (10-50); Mean Corpuscular HGB Conc 30.1 g/dl (31.0-37.0); Mean Corpuscular Hemoglobin 21.2 pg (25.0-35.0); Mean Corpuscular Volume 71 fL (80-100); Monocytes # (Auto) 0.5 Thou/mm3 (0.0-0.8); Monocytes % (Auto) 9 % (0-12); Neutrophils # (Auto) 3.7 Thou/mm3 (1.8-7.7); Neutrophils % (Auto) 66 % (37-80); Nucleated Red Blood Cell % 0 /100 WBC (0); Platelet Count 342 Thou/mm3 (140-440); RDW Standard Deviation 53.4 fL (35.1-43.9); White Blood Count 5.6 Thou/mm3 (3.8-10.6)
[2024-06-12 06:30] LABS: Hemoglobin 8.7 g/dL (13.5-16.0)
[2024-06-12 07:29] LABS: Alanine Aminotransferase < 7 U/L (10-49); Albumin/Globulin Ratio 1.3 (1.2-2.2); Alkaline Phosphatase 72 U/L (46-116); Anion Gap 8 (7-16); Aspartate Amino Transferase 11 U/L (0-34); BUN/Creatinine Ratio 15 Ratio (12-20); Bilirubin,Total 0.3 mg/dL (0.3-1.2); Blood Urea Nitrogen 25 mg/dL (9-23); Calcium 9.1 mg/dL (8.3-10.6); Calcium (Corrected) 9.1 mg/dL (8.5-10.1); Carbon Dioxide 21.3 mMol/L (20.0-31.0); Chloride 107 mMol/L (98-107); Creatinine (Component) 1.7 mg/dL (0.6-1.3); Estimated Creatinine Clearance 37.3 mL/min (>60); Globulin 3.1 gm/dL (2.3-3.5); Glucose 90 mg/dL (74-106); Osmolality,Calculated 276 (275-295); Potassium 3.9 mMol/L (3.4-5.1); Sodium 136 mMol/L (136-145); Total Protein 7.1 gm/dL (5.7-8.2); eGFR 54 See Note
[2024-06-12] MEDS: amLODIPine BESYLATE 5 MG TABLET 10 MG PO (09:00)
--- NOTE | 2024-06-12 10:44 | PC.SS ---
rounding note: Patient to have stent replacement on Tuesday. D/c plan remains to return home with .
--- NOTE | 2024-06-12 12:53 | ESPR_ITS ---
<Statement entered by Harleen Cevallos MD - 06/13/24 06:59> Patient seen and examined at bedside. No acute overnight events reported. Patient will be NPO after midnight, ordered PT/PTT/INR for AM for stent replacement with Dr. Morelos tomorrow. Patient denies any complaints at this time. Continue with current pain regimen. I discussed with and supervised the internet marketing specialist physician who took care of this patient. I personally saw and examined the patient and discussed the assessment and plan with the entire medicine team, including my attending , I agree with most of the assessment and plan as documented below Harleen Cevallos M.D. PGY-2 Documentation for date of: 06/12/24 Subjective Subjective Interval history: Patient was seen and examined at bedside. No acute events overnight. Patient continues to have LL abdominal/left CVA tenderness. Continue with Dilaudid 1 mg IV Q4 HR as needed and tramadol 100 p.o. every 6 hours as needed. Creatinine remains elevated but stable at 1.7, hyponatremia resolved today 136. Dr Morelos will see patient tomorrow on 06/13/2024 for stent replacement. Continue with IV Zosyn for UTI. Review of systems otherwise negative except what is mentioned above. Exam Vital Signs Temp Pulse Resp BP Pulse Ox O2 Del Method 97.1 F 82 18 137/81 H 99 Room Air 06/12/24 07:49 06/12/24 09:00 06/12/24 07:49 06/12/24 09:00 06/12/24 07:49 06/12/24 07:49 Narrative Exam General: Awake, answering questions appropriately HEENT: Atraumatic, normocephalic. No JVD noted. Mucosa moist. Cardiovascular: Normal S1 and S2. Regular rate and rhythm. No pitting edema Respiratory: Lungs are clear to auscultation bilaterally. No wheezing or crackles heard. Abdomen: Soft, nontender, not distended, normal bowel sounds, RLQ pain and right CVA tenderness Skin: Warm to touch, dry, no rashes noted MSK/extremities: No gross injuries. Able to move all 4 extremities, atrophic b/L LE Neuro: Alert and oriented x3. No focal neuro deficits. Objective Labs 06/13/24 04:27 06/13/24 04:27 Labs: Laboratory Results - last 24 hr 06/12/24 04:34 WBC 5.6 RBC 4.10 L Hgb 8.7 L Hct 28.9 L MCV 71 L MCH 21.2 L MCHC 30.1 L RDW Std Deviation 53.4 H Plt Count 342 Neut % (Auto) 66 Lymph % (Auto) 20 [place] % (Auto) 9 Eos % (Auto) 4 Baso % (Auto) 1 Neut # (Auto) 3.7 Lymph # (Auto) 1.1 [place] # (Auto) 0.5 Eos # (Auto) 0.2 Baso # (Auto) 0.0 Immature Gran # (Auto) 0.01 H Absolute Nucleated RBC 0.00 Immature Gran % 0 Nucleated RBC % 0 Sodium 136 Potassium 3.9 Chloride 107 Carbon Dioxide 21.3 Anion Gap 8 BUN 25 H Creatinine 1.7 H Estim Creat Clear Calc 37.3 L eGFR 54 L BUN/Creatinine Ratio 15 Glucose 90 Calculated Osmolality 276 Calcium 9.1 Corrected Calcium 9.1 Total Bilirubin 0.3 AST 11 ALT < 7 L Alkaline Phosphatase 72 Total Protein 7.1 Albumin 4.0 Globulin 3.1 Albumin/Globulin Ratio 1.3 Quality Measures Quality Measures none Assessment & Plan Assessment Current Active Medications: Generic Name Dose Route Start Last Admin Trade Name Freq PRN Reason Stop Dose Admin Acetaminophen 650 mg 06/07/24 09:16 06/08/24 08:21 Acetaminophen 325 Mg Tablet PO 07/06/24 05:15 650 mg Q6H PRN Administration PAIN 1-3 OR FEVER > 101 Amlodipine Besylate 10 mg 06/07/24 09:00 06/12/24 09:00 Amlodipine Besylate 5 Mg Tablet PO 07/07/24 08:59 10 mg QDAY ARACELY Administration Clonidine 0.1 mg 06/08/24 14:00 06/12/24 05:12 Clonidine Hcl 0.1 Mg Tablet PO 07/08/24 13:59 0.1 mg TID ARACELY Administration Heparin Sodium (Porcine) 5,000 unit 06/06/24 06:00 06/12/24 05:10 Heparin Sod Inj 5000 Unit/Ml Vial SC 06/20/24 05:59 Not Given Q8HR ARACELY Hydromorphone HCl 1 mg 06/11/24 06:03 06/12/24 12:12 Hydromorphone Inj 2 Mg/Ml Vial IVP 06/16/24 06:02 1 mg Q4HR PRN Administration PAIN SCALE 4-6 (Moderate Piperacillin/Tazobactam/Dextrose 3.375 gm in 50 mls @ 12.5 mls/hr 06/08/24 14:00 06/12/24 05:10 Zosyn IV 06/15/24 13:59 12.5 mls/hr Q8HR ARACELY Administration Ondansetron HCl 4 mg 06/06/24 05:16 06/06/24 18:18 Ondansetron Inj 2 Mg/Ml Inj 2 Ml IV 07/06/24 05:15 4 mg Q6H PRN Administration NAUSEA OR VOMITING Protocol Tramadol HCl 100 mg 06/09/24 14:55 06/12/24 09:53 Tramadol Hcl 50 Mg Tablet PO 06/14/24 14:54 100 mg Q6HR PRN Administration PAIN SCALE 7-10(SEVERE) Plan Pierce Dixon 34-y/o male with a past medical history of spina 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 Associated dysuria, dark urine, urinary frequency. Denies fever, chills, nausea, sweats. Saw PCP and given p.o. antibiotics but symptoms persisted and came to ED. Dr. Morelos planned to remove stents next week regarding obstructive renal calculus. Admitted for further management of complicated UTI/hydronephrosis. # Pyelonephritis 2/2 Proteus mirabilis #History of frequent UTI #Bilateral hydronephrosis #Chronic pyelonephritis #Staghorn nephrolithiasis s/p bilateral stent placement Complicated urological history of recurrent UTI, hydronephrosis, nephrolithiasis, status post multiple ureteral stents. Patient does not meet sepsis criteria. CT A/P: Bilateral large staghorn calculi with bilateral ureteral stents. Moderate to advanced right hydronephrosis mild left hydronephrosis -stopped rocefin yesterday due to insensitivity ? Continue with Zosyn -Pain management--Dilaudid 1 mg IV every 8 HR as needed -tramadol 100 mg p.o. every 6 HR as needed -preliminary blood cultures were negative -Dr. Morelos has been consulted. Planning to replace stents on Tue06/13/24 #Acute kidney injury Baseline Cr 1.2 -today Cr 1.7 -Avoid nephrotoxic agents, renally dose medications -Hold home lisinopril in a setting of TRINI -stop fluid restriction -hydrate as needed -daily renal pannel #Hyponatremia 2/2 dilution-resolved -Na 135 today ?Fluid restriction removed ? Continue monitoring of sodium -Will replete as needed #Hypokalemia-resolved ? Continue to monitor daily potassium ? Replete as needed to maintain above 4.0 #Chronic microcytic anemia, likely due to iron deficiency -s/p x1 unit PRBC on 06/07/24 ? Today hemoglobin 8.8--has remained stable ? Monitor with daily CBC #History of hypertension ? Clonidine 0.1 mg p.o. 3 times daily #Spina bifida ? Follow-up outpatient Hospital management: Disposition: med surg, UTI tx, Dr. Morelos will see pt on Tue06/13/24 Diet: Renal Lines: Peripheral DVT prophylaxis: Heparin GI prophylaxis: Not indicated, on diet Baker: Self-caths at home CODE STATUS: full code Plan discussed with attending physician Dr. Frost and senior resident Dr. Graham/Dr. Cevallos. Eulalia Arias, PGY-1 GERARD discussed with and supervised the internet marketing specialist physician who took care of this patient. I personally saw and examined the patient and discussed the assessment and plan with the entire medicine team, including my attending Dr. Arnold Frost MD. I agree with the assessment and plan as documented above. Patient interviewed and examined at bedside this a.m. No overnight events to report. Patient still reporting generalized diffuse abdominal pain more pronounced in the left lower quadrant. Patient requiring IV Dilaudid 1 mg every 4 on schedule. Patient also receiving tramadol 100 mg p.o. every 6 hours scheduled. Creatinine remains elevated at 1.7 most likely secondary to hydronephrosis. Sodium trending up reassuringly. Patient will be kept n.p.o. over night in anticipation of stent interchange scheduled for tomorrow 06/13/2024. Will continue Zosyn for pyelonephritis. Kulwinder Graham M.D. Internal Medicine PGY-3 Attending Provider Attestation/Addendum I have examined the patient, reviewed labs and imaging findings, discussed the case with the resident(s), and reviewed entered orders. I agree with the plan of care as outlined in this note, with these additional summaries/recommendations: Patient seen at bedside. No acute overnight events. Patient continues to endorse intractable pain requiring IV Dilaudid. Continue oral tramadol and as needed IV diluadid for breakthrough pain. Urine culture grew Proteus mirabilis sensitive to IV Zosyn which we will continue. Continue IV Zosyn for treatment of bilateral pyelonephritis. Proteus only senstivie to IV abx and patient to remain hospitalized for IV abx. Patient has history of large bilateral staghorn calculi with ureteral stents. Moderate bilateral hydronephrosis seen on admission and urology was consulted. Urology consulted with plans for stent exchange tomorrow 06/13/24. Hydronephrosis appears chronic and seen on previous imaging studies. Acute kidney injury present with Cr 1.7 today. Continue to avoid nephrotoxic agents and renally dose medications. Repeat hematology and chemistry panel in AM. Dr. Frost
[2024-06-13] VITALS (17 sets, daily range): BP systolic 114–151; BP diastolic 76–98; PULSE 63–85; RESP 12–18; TEMP 36.1–37.1; O2SAT 96–100
[2024-06-13] MEDS: HYDROmorphone INJ 2 MG/ML VIAL 1 MG IVP ×3 (00:39→09:19)
[2024-06-13] MEDS: PIPER/TAZO 3.375 GM 3.375 GM/50 ML BAG IV (05:11)
[2024-06-13 05:24] LABS: Basophils % (Auto) 1 % (0-2.5); Eosinophils # (Auto) 0.3 Thou/mm3 (0.0-0.5); Eosinophils % (Auto) 4 % (0-10); Hematocrit 29.1 % (41.0-53.0); Hemoglobin 8.6 g/dL (13.5-16.0); Immature Granulocytes % (Auto) 0 % (0-0); Immature Granulocytes Auto 0.02 Thou/mm3 (0.00-0.00); Lymphocytes # (Auto) 1.2 Thou/mm3 (1.0-4.8); Lymphocytes % (Auto) 18 % (10-50); Mean Corpuscular HGB Conc 29.6 g/dl (31.0-37.0); Mean Corpuscular Hemoglobin 21.3 pg (25.0-35.0); Mean Corpuscular Volume 72 fL (80-100); Monocytes # (Auto) 0.5 Thou/mm3 (0.0-0.8); Monocytes % (Auto) 7 % (0-12); Neutrophils # (Auto) 4.8 Thou/mm3 (1.8-7.7); Neutrophils % (Auto) 71 % (37-80); Nucleated Red Blood Cell % 0 /100 WBC (0); Platelet Count 349 Thou/mm3 (140-440); RDW Standard Deviation 54.5 fL (35.1-43.9); Red Blood Count 4.03 Miln/mm3 (4.50-5.90); White Blood Count 6.8 Thou/mm3 (3.8-10.6)
[2024-06-13 05:53] LABS: Partial Thromboplastin Time 22.8 Seconds (22.0-36.0); Prothrombin Time 10.8 Seconds (9.0-12.2)
[2024-06-13 06:48] LABS: Alanine Aminotransferase < 7 U/L (10-49); Albumin, Serum 4.1 gm/dL (3.5-5.0); Albumin/Globulin Ratio 1.3 (1.2-2.2); Alkaline Phosphatase 75 U/L (46-116); Anion Gap 10 (7-16); Aspartate Amino Transferase 18 U/L (0-34); BUN/Creatinine Ratio 13 Ratio (12-20); Bilirubin,Total 0.4 mg/dL (0.3-1.2); Blood Urea Nitrogen 21 mg/dL (9-23); Calcium 9.1 mg/dL (8.3-10.6); Calcium (Corrected) 9.1 mg/dL (8.5-10.1); Carbon Dioxide 19.4 mMol/L (20.0-31.0); Chloride 105 mMol/L (98-107); Creatinine (Component) 1.6 mg/dL (0.6-1.3); Estimated Creatinine Clearance 39.7 mL/min (>60); Globulin 3.2 gm/dL (2.3-3.5); Glucose 83 mg/dL (74-106); Osmolality,Calculated 270 (275-295); Potassium 4.2 mMol/L (3.4-5.1); Sodium 134 mMol/L (136-145); Total Protein 7.3 gm/dL (5.7-8.2); eGFR 58 See Note
--- NOTE | 2024-06-13 07:35 | CHAP ---
Prayed with patient before upcoming procedure at the request of one of the medical staff.
--- NOTE | 2024-06-13 09:23 | XR_ITS ---
Examination: Bilateral retrograde pyelograms with without KUB AP abdomen 2 views Exam date and time: June 13, 2024 1305 hours INDICATIONS: Bilateral flank pain beginning June 02, 2024, moderate to advanced right hydronephrosis mild left hydronephrosis on CT abdomen study June 06, 2024 TECHNIQUE AND FINDINGS: 2 spot fluoroscopic abdomen films obtained Contrast in dilated left renal calyces Partial visualization of bilateral ureteral stents satisfactory position Fluoroscopy 44 seconds radiation dose 6.76 milligray IMPRESSION: Bilateral retrograde pyelograms as above
--- NOTE | 2024-06-13 10:26 | PC.SS ---
rounding note: Patient to have surgery today. Possible discharge home with home health tomorrow.
--- NOTE | 2024-06-13 12:17 | PD.SUROPNT ---
Date of Procedure 06/13/24 Pre Op Diagnosis Neurogenic bladder, bilateral staghorn calculi, bilateral ureteral stent placement, sepsis, Post Op Diagnosis Same plus calcified stent left side Procedure Cystoscopic examination bilateral retrograde pyelogram, laser stone fragmentation of bladder stones and evacuation, left ureteroscopy laser stone fragmentation left ureter stone basketing removal of bilateral ureteral stents and placement of bilateral ureteral stents under fluoroscopic examination Findings Calcified stent left side left ureteral stone bilateral hydronephrosis status post placement of bilateral ureteral stents Procedure Description Indication for procedure this is a 34-year-old gentleman he has spina bifid a. He has bilateral staghorn calculi and had placement of bilateral ureteral stents this is a chronic condition. He came to the hospital with urosepsis he had a CAT scan done this revealed hydronephrosis both sides status post bilateral ureteral stents. Patient has change of stents every 3 months he was recommended above procedure procedure and complications were discussed with the patient in great detail informed consent is obtained Patient was brought to the operating room in a satisfactory condition after appropriate premedication he was appropriately identified by surgeon and operating room staff site scope and indications of the procedure were reconfirmed with the patient 21 cystoscope was used to do the cystourethroscopy. At this time patient received a perioperative antibiotics and 20 mg of Lasix IV was given for diuresis as well as for prevention of infectious pyelocalyceal complication. Next left ureteral stent was calcified. With the 200 ?m laser fiber I was able to remove the calcification around the stent. Next I passed the open-ended Pollick catheter into the left ureteral orifice through the catheter I placed a safety wire into the left renal pelvis and upper pole calyx next level left ureteral stent was removed. After I placed the safety wire urine was coming out of the left ureteral orifice under pressure decompressing the left collecting system.. Next semirigid ureteroscope was used to do the left ureteroscopy I could see the stone in the mid ureter I took the laser fiber and I fragmented the stone into multiple pieces with the stone basketing the stone fragments were removed. Next retrograde pyelogram was performed he had a staghorn calculi left side with hydronephrosis. Next I turned my attention to the right ureteral orifice the stent was coming out of the right ureteral orifice it was not calcified with a stent grasper I remove the stent right side retrograde pyelogram revealed hydronephrosis with staghorn calculi. Next bladder stone fragments were removed over the safety wire under fluoroscopic examination I placed bilateral ureteral stent proximal and curled into the upper 4 calyx both sides and distally in the bladder the size of the stent is 22 cm long 6 [place] Island[place] double-J next instrument was withdrawn gently #16 Baker catheter was inserted. Patient after having tolerated the procedure well was discharged to recovery room in a satisfactory condition to be discharged home to be followed in urology office in 3 months thank you Anesthesia GETA Pathology / specimen None Estimated Blood Loss 1.0 Condition Stable Disposition PACU Surgeon Gisel Morelos MD Surgical Staff Operation Date: 06/13/24 13:15 Case Staff Anesthesiologist: Christopher Santos
--- NOTE | 2024-06-13 12:25 | SUR.PHASEI ---
6365 Patient arrived to recovery resting comfortably in [facility], sleeping and able to arouse with verbal prompting then drifts back to sleep, on oxygen 8L via oxy mask, breathing unlabored, vital signs stable, denies pain, urinary catheter 16F in place with leg secure; draining to gravity, with pink fluid in vitale bag, lung sounds clear upon auscultation, bilateral radial pulses present when palpated, report received from Vladimir LOCKHART/Arnaldo PADILLA
--- NOTE | 2024-06-13 12:45 | SUR.PHASEI ---
1245 Report given to Navya Juárez RN
[2024-06-13] MEDS: MORPHINE SULF INJ 10 MG/ML VIAL 3 MG IV (13:12)
[2024-06-13] MEDS: ACETAMINOPHEN IVPB 1,000 MG/100 ML VIAL 250 MG IV (13:19)
--- NOTE | 2024-06-13 13:31 | SUR.PHASEI ---
133 Report received from Navya Juárez RN
--- NOTE | 2024-06-13 13:31 | SUR.PHASEI ---
Report given to Navya Collazo RN
--- NOTE | 2024-06-13 14:01 | ESPR_ITS ---
<Statement entered by Harleen Cevallos MD - 06/14/24 05:57> I discussed with and supervised the internet merchant physician who took care of this patient. I personally saw and examined the patient and discussed the assessment and plan with the entire medicine team, including my attending Dr. Frost, I agree with most of the assessment and plan as documented below Harleen Cevallos M.D. PGY-2 Documentation for date of: 06/13/24 Subjective Subjective Interval history: Patient was seen and examined at bedside. No acute events overnight. Patient continues to have LL abdominal/left CVA tenderness. Today, start taper of Dilaudid 1 mg to 0.5mg IV Q4 HR as needed and continue tramadol 100 p.o. every 6 hours as needed. Creatinine remains elevated but stable at 1.6, hyponatremia resolved [address] Morelos will see patient today at noon for stent replacement. Change IV Zosyn to renal dosing of 2.25g q6h for UTI. Continue monitoring symptoms and follow up with labs tomorrow. Patient is on 5th day of IV Zosyn. Review of systems otherwise negative except what is mentioned above. Exam Vital Signs Temp Pulse Resp BP Pulse Ox O2 Del Method O2 Flow Rate 97.5 F 74 12 140/91 H 100 Room Air 8 06/13/24 13:31 06/13/24 13:31 06/13/24 13:31 06/13/24 13:31 06/13/24 13:31 06/13/24 08:00 06/13/24 12:40 Narrative Exam General: Awake, answering questions appropriately HEENT: Atraumatic, normocephalic. No JVD noted. Mucosa moist. Cardiovascular: Normal S1 and S2. Regular rate and rhythm. No pitting edema Respiratory: Lungs are clear to auscultation bilaterally. No wheezing or crackles heard. Abdomen: Soft, nontender, not distended, normal bowel sounds, RLQ pain and right CVA tenderness Skin: Warm to touch, dry, no rashes noted MSK/extremities: No gross injuries. Able to move all 4 extremities, atrophic b/L LE Neuro: Alert and oriented x3. No focal neuro deficits. Objective Labs 06/14/24 04:20 06/14/24 04:20 Labs: Laboratory Results - last 24 hr 06/13/24 04:27 WBC 6.8 RBC 4.03 L Hgb 8.6 L Hct 29.1 L MCV 72 L MCH 21.3 L MCHC 29.6 L RDW Std Deviation 54.5 H Plt Count 349 Neut % (Auto) 71 Lymph % (Auto) 18 [place] % (Auto) 7 Eos % (Auto) 4 Baso % (Auto) 1 Neut # (Auto) 4.8 Lymph # (Auto) 1.2 [place] # (Auto) 0.5 Eos # (Auto) 0.3 Baso # (Auto) 0.0 Immature Gran # (Auto) 0.02 H Absolute Nucleated RBC 0.00 Immature Gran % 0 Nucleated RBC % 0 PT 10.8 INR 1.0 APTT 22.8 Sodium 134 L Potassium 4.2 Chloride 105 Carbon Dioxide 19.4 L Anion Gap 10 BUN 21 Creatinine 1.6 H Estim Creat Clear Calc 39.7 L eGFR 58 L BUN/Creatinine Ratio 13 Glucose 83 Calculated Osmolality 270 L Calcium 9.1 Corrected Calcium 9.1 Total Bilirubin 0.4 AST 18 ALT < 7 L Alkaline Phosphatase 75 Total Protein 7.3 Albumin 4.1 Globulin 3.2 Albumin/Globulin Ratio 1.3 Quality Measures Quality Measures none Assessment & Plan Assessment Current Active Medications: Generic Name Dose Route Start Last Admin Trade Name Freq PRN Reason Stop Dose Admin Acetaminophen 650 mg 06/07/24 09:16 06/08/24 08:21 Acetaminophen 325 Mg Tablet PO 07/06/24 05:15 650 mg Q6H PRN Administration PAIN 1-3 OR FEVER > 101 Amlodipine Besylate 10 mg 06/07/24 09:00 06/12/24 09:00 Amlodipine Besylate 5 Mg Tablet PO 07/07/24 08:59 10 mg QDAY ARACELY Administration Clonidine 0.1 mg 06/08/24 14:00 06/13/24 05:10 Clonidine Hcl 0.1 Mg Tablet PO 07/08/24 13:59 Not Given TID ARACELY Fentanyl Citrate 25 mcg 06/13/24 13:06 Fentanyl Cit Inj 50 Mcg/Ml Amp 2ml IV 06/13/24 15:07 Q5M PRN PAIN SCALE 1-3 (mild Heparin Sodium (Porcine) 5,000 unit 06/06/24 06:00 06/13/24 05:09 Heparin Sod Inj 5000 Unit/Ml Vial SC 06/20/24 05:59 Not Given Q8HR ARACELY Hydromorphone HCl 0.5 mg 06/13/24 10:44 Hydromorphone Inj 2 Mg/Ml Vial IVP 06/16/24 06:02 Q4HR PRN PAIN SCALE 7-10 (Severe Piperacillin Sod/Tazobactam 50 mls @ 100 mls/hr 06/13/24 10:43 Sod 2.25 gm/ Sodium Chloride IV 06/20/24 10:42 Q6HR ARACELY Acetaminophen 1,000 mg in 100 mls @ 250 mls/hr 06/13/24 13:08 06/13/24 13:43 Ofirmev Inj IV 06/14/24 06:23 Infused Q6HR [facility] Infusion Morphine Sulfate 3 mg 06/13/24 13:06 06/13/24 13:12 Morphine Sulf Inj 10 Mg/Ml Vial IV 06/13/24 15:07 3 mg Q5M PRN Administration PAIN SCALE 4-6 (Moderate Ondansetron HCl 4 mg 06/06/24 05:16 06/06/24 18:18 Ondansetron Inj 2 Mg/Ml Inj 2 Ml IV 07/06/24 05:15 4 mg Q6H PRN Administration NAUSEA OR VOMITING Protocol Tramadol HCl 100 mg 06/13/24 07:54 Tramadol Hcl 50 Mg Tablet PO 06/14/24 14:54 Q6HR PRN PAIN SCALE 4-6 (Moderate Plan Pierce Dixon 34-y/o male with a past medical history of spina bifida (wheelchair-bound), [employer] shunt, recurrent UTI, chronic nephrolithiasis s/p multiple stents, chronic hydronephrosis, HTN, anemia, multiple back surgeries presented to ED for abdominal and flank pain x 4 days. Associated dysuria, dark urine, urinary frequency. Denies fever, chills, nausea, sweats. Saw PCP and given p.o. antibiotics but symptoms persisted and came to ED. Dr. Morelos planned to remove stents next week regarding obstructive renal calculus. Admitted for further management of complicated UTI/hydronephrosis. # Pyelonephritis 2/2 Proteus mirabilis #History of frequent UTI #Bilateral hydronephrosis #Chronic pyelonephritis #Staghorn nephrolithiasis s/p bilateral stent placement Complicated urological history of recurrent UTI, hydronephrosis, nephrolithiasis, status post multiple ureteral stents. Patient does not meet sepsis criteria. CT A/P: Bilateral large staghorn calculi with bilateral ureteral stents. Moderate to advanced right hydronephrosis mild left hydronephrosis -stopped rocefin yesterday due to insensitivity ? Continue with Zosyn -Pain management--Dilaudid 1 mg IV every 8 HR as needed -tramadol 100 mg p.o. every 6 HR as needed -preliminary blood cultures were negative -Dr. Morelos has been consulted. Planning to replace stents today -follw up with recommendations #Acute kidney injury Baseline Cr 1.2 -today Cr 1.7 -Avoid nephrotoxic agents, renally dose medications -Hold home lisinopril in a setting of TRINI -stop fluid restriction -hydrate as needed -daily renal pannel #Hyponatremia 2/2 dilution-resolved -Na 135 today ?Fluid restriction removed ? Continue monitoring of sodium -Will replete as needed #Hypokalemia-resolved ? Continue to monitor daily potassium ? Replete as needed to maintain above 4.0 #Chronic microcytic anemia, likely due to iron deficiency -s/p x1 unit PRBC on 06/07/24 ? Today hemoglobin 8.8--has remained stable ? Monitor with daily CBC #History of hypertension ? Clonidine 0.1 mg p.o. 3 times daily #Spina bifida ? Follow-up outpatient Hospital management: Disposition: med surg, UTI tx, Dr. oMrelos will see pt on Tue06/13/24 Diet: Renal Lines: Peripheral DVT prophylaxis: Heparin GI prophylaxis: Not indicated, on diet Baker: Self-caths at home CODE STATUS: full code Plan discussed with attending physician Dr. Frost and senior residents Dr. Graham/Dr. Cevallos. Eulalia Arias, PGY-1 GERARD discussed with and supervised the internet merchant physician who took care of this patient. I personally saw and examined the patient and discussed the assessment and plan with the entire medicine team, including my attending Dr. Arnold Frost MD. I agree with the assessment and plan as documented above. Patient to undergo replacement of ureteral stents under guidance of Urology services. WIll renally dose pip/tazo in accordance to his renal function. Kulwinder Graham M.D. Internal Medicine PGY-3 Attending Provider Attestation/Addendum I have examined the patient, reviewed labs and imaging findings, discussed the case with the resident(s), and reviewed entered orders. I agree with the plan of care as outlined in this note, with these additional summaries/recommendations: Patient seen at bedside. No acute overnight events. Continue renally dosed IV Zosyn for complicated urinary tract infection secondary to Proteus mirabilis. Patient has a history of bilateral staghorn calculi with chronic bilateral hydronephrosis and will go for stent exchange with urology today 06/13. Continue to wean pain management and anticipate discharge in the next 24 to 48 hours if patient continues to improve. Patient was counseled he would benefit from seeing outpatient pain specialist. Continue home antihypertensives. Dr. Frost
--- NOTE | 2024-06-13 14:02 | SUR.PHASEI ---
1358 Report given to Grace PADILLA, patient meets discharge criteria from recovery, awake and talking with staff, breathing unlabored, vital signs stable, per patient his pain is tolerable, urinary catheter in place with leg secure; draining to gravity with pink fluid in vitale bag. 1402 Patient transported via gurney to room 350 without incident.
[2024-06-13] MEDS: HYDROmorphone INJ 2 MG/ML VIAL 0.5 MG IVP ×3 (14:31→22:37)
[2024-06-13] MEDS: amLODIPine BESYLATE 5 MG TABLET 10 MG PO (14:32)
[2024-06-13] MEDS: cloNIDine HCL 0.1 MG TABLET PO ×2 (16:44→21:17)
[2024-06-13] MEDS: PIPERACILLIN/TAZO 2.25GM INJ 2.25 GM in SODIUM CHLORIDE 0.9% (P) 50 ML IV ×2 (18:34→23:26)
[2024-06-13] MEDS: traMADol HCL 50 MG TABLET 100 MG PO (23:30)
[2024-06-14] VITALS (10 sets, daily range): BP systolic 113–138; BP diastolic 76–98; PULSE 68–90; RESP 16–18; TEMP 36.1–37.1; O2SAT 95–100; BMI 23.8
[2024-06-14] MEDS: HYDROmorphone INJ 2 MG/ML VIAL 0.5 MG IVP ×6 (02:38→22:34)
[2024-06-14] MEDS: PIPERACILLIN/TAZO 2.25GM INJ 2.25 GM in SODIUM CHLORIDE 0.9% (P) 50 ML IV ×3 (05:10→18:23)
[2024-06-14] MEDS: cloNIDine HCL 0.1 MG TABLET PO ×3 (05:10→21:37)
[2024-06-14 06:04] LABS: Basophils % (Auto) 0 % (0-2.5); Eosinophils # (Auto) 0.2 Thou/mm3 (0.0-0.5); Eosinophils % (Auto) 2 % (0-10); Hematocrit 29.5 % (41.0-53.0); Immature Granulocytes % (Auto) 0 % (0-0); Immature Granulocytes Auto 0.04 Thou/mm3 (0.00-0.00); Lymphocytes # (Auto) 0.9 Thou/mm3 (1.0-4.8); Lymphocytes % (Auto) 10 % (10-50); Mean Corpuscular HGB Conc 29.5 g/dl (31.0-37.0); Mean Corpuscular Hemoglobin 21.3 pg (25.0-35.0); Mean Corpuscular Volume 72 fL (80-100); Monocytes # (Auto) 0.5 Thou/mm3 (0.0-0.8); Monocytes % (Auto) 5 % (0-12); Neutrophils # (Auto) 7.4 Thou/mm3 (1.8-7.7); Neutrophils % (Auto) 83 % (37-80); Nucleated Red Blood Cell % 0 /100 WBC (0); Platelet Count 399 Thou/mm3 (140-440); RDW Standard Deviation 54.8 fL (35.1-43.9); Red Blood Count 4.09 Miln/mm3 (4.50-5.90)
[2024-06-14 06:07] LABS: Hemoglobin 8.7 g/dL (13.5-16.0)
[2024-06-14 06:59] LABS: Alanine Aminotransferase < 7 U/L (10-49); Albumin, Serum 4.2 gm/dL (3.5-5.0); Albumin/Globulin Ratio 1.2 (1.2-2.2); Alkaline Phosphatase 77 U/L (46-116); Anion Gap 7 (7-16); Aspartate Amino Transferase 12 U/L (0-34); BUN/Creatinine Ratio 13 Ratio (12-20); Bilirubin,Total 0.4 mg/dL (0.3-1.2); Blood Urea Nitrogen 22 mg/dL (9-23); Chloride 106 mMol/L (98-107); Creatinine (Component) 1.7 mg/dL (0.6-1.3); Estimated Creatinine Clearance 37.3 mL/min (>60); Globulin 3.4 gm/dL (2.3-3.5); Glucose 73 mg/dL (74-106); Osmolality,Calculated 272 (275-295); Potassium 3.8 mMol/L (3.4-5.1); Sodium 135 mMol/L (136-145); Total Protein 7.6 gm/dL (5.7-8.2); eGFR 54 See Note
[2024-06-14] MEDS: amLODIPine BESYLATE 5 MG TABLET 10 MG PO (09:33)
[2024-06-14 09:49] LABS: Total Iron Binding Capacity 348 mcg/dL (250-425)
[2024-06-14 09:58] LABS: Iron 24 mcg/dL (65-175); Percent Iron Saturation 6 % (20-55); Unsaturated Iron Binding 324 (225-295)
--- NOTE | 2024-06-14 12:29 | PC.SS ---
Follow up note: SS received a call from the insurance co. inquiring when patient will be ready for d/c. If we need any assistance with d/c care we can contact Christina @ [phone]. She can provide a list of contracted home health agencies as well.
--- NOTE | 2024-06-14 15:07 | ESPR_ITS ---
<Statement entered by Harleen Cevallos MD - 06/15/24 19:14> I discussed with and supervised the merchandising intern physician who took care of this patient. I personally saw and examined the patient and discussed the assessment and plan with the entire medicine team, including my attending , I agree with most of the assessment and plan as documented below Harleen Cevallos M.D. PGY-2 Documentation for date of: 06/14/24 Subjective Subjective Interval history: Patient was seen and examined at bedside. No acute events overnight. Dr Morelos saw patient yesterday and replaced bilateral ureteral stents. Does not recommend for patient to be on continuous IV antibiotics unless he is experiencing symptoms of UTI. Patient continues to have right abdominal and right CVA tenderness. But feels better overall since admission. Creatinine still elevated at 1.7. Infectious disease Dr Barrios consulted for recommendations on long-term management of recurrent UTI and pyelonephritis. All previous cultures have grown Proteus mirabilis sensitive between the IV Zosyn. Patient has history of iron deficiency anemia, started on oral ferritin at time of discharge. Review of systems otherwise negative except what is mentioned above. Exam Vital Signs Temp Pulse Resp BP Pulse Ox O2 Del Method O2 Flow Rate 97.4 F 74 18 129/88 H 98 Room Air 2 06/14/24 11:47 06/14/24 14:33 06/14/24 11:47 06/14/24 14:33 06/14/24 11:47 06/14/24 11:47 06/13/24 12:55 Narrative Exam General: Awake, answering questions appropriately HEENT: Atraumatic, normocephalic. No JVD noted. Mucosa moist. Cardiovascular: Normal S1 and S2. Regular rate and rhythm. No pitting edema Respiratory: Lungs are clear to auscultation bilaterally. No wheezing or crackles heard. Abdomen: Soft, nontender, not distended, normal bowel sounds, right abdominal and right CVA tenderness Skin: Warm to touch, dry, no rashes noted MSK/extremities: No gross injuries. Able to move all 4 extremities, atrophic b/L LE Neuro: Alert and oriented x3. No focal neuro deficits. Objective Labs 06/15/24 05:03 06/15/24 05:03 Labs: Laboratory Results - last 24 hr 06/14/24 04:20 WBC 9.0 RBC 4.09 L Hgb 8.7 L Hct 29.5 L MCV 72 L MCH 21.3 L MCHC 29.5 L RDW Std Deviation 54.8 H Plt Count 399 D Neut % (Auto) 83 H Lymph % (Auto) 10 [place] % (Auto) 5 Eos % (Auto) 2 Baso % (Auto) 0 Neut # (Auto) 7.4 Lymph # (Auto) 0.9 L [place] # (Auto) 0.5 Eos # (Auto) 0.2 Baso # (Auto) 0.0 Immature Gran # (Auto) 0.04 H Absolute Nucleated RBC 0.00 Immature Gran % 0 Nucleated RBC % 0 Sodium 135 L Potassium 3.8 Chloride 106 Carbon Dioxide 22.0 Anion Gap 7 BUN 22 Creatinine 1.7 H Estim Creat Clear Calc 37.3 L eGFR 54 L BUN/Creatinine Ratio 13 Glucose 73 L Calculated Osmolality 272 L Calcium 9.0 Corrected Calcium 9.0 Iron 24 L TIBC 348 Iron Saturation 6 L Unsat Iron Binding 324 H Total Bilirubin 0.4 AST 12 ALT < 7 L Alkaline Phosphatase 77 Total Protein 7.6 Albumin 4.2 Globulin 3.4 Albumin/Globulin Ratio 1.2 Quality Measures Quality Measures none Assessment & Plan Assessment Current Active Medications: Generic Name Dose Route Start Last Admin Trade Name Freq PRN Reason Stop Dose Admin Acetaminophen 650 mg 06/07/24 09:16 06/08/24 08:21 Acetaminophen 325 Mg Tablet PO 07/06/24 05:15 650 mg Q6H PRN Administration PAIN 1-3 OR FEVER > 101 Amlodipine Besylate 10 mg 06/07/24 09:00 06/14/24 09:33 Amlodipine Besylate 5 Mg Tablet PO 07/07/24 08:59 10 mg QDAY ARACELY Administration Clonidine 0.1 mg 06/08/24 14:00 06/14/24 14:33 Clonidine Hcl 0.1 Mg Tablet PO 07/08/24 13:59 0.1 mg TID ARACELY Administration Hydromorphone HCl 0.5 mg 06/13/24 10:44 06/14/24 14:33 Hydromorphone Inj 2 Mg/Ml Vial IVP 06/16/24 06:02 0.5 mg Q4HR PRN Administration PAIN SCALE 7-10 (Severe Piperacillin Sod/Tazobactam 50 mls @ 100 mls/hr 06/13/24 10:43 06/14/24 12:11 Sod 2.25 gm/ Sodium Chloride IV 06/20/24 10:42 100 mls/hr Q6HR ARACELY Administration Ondansetron HCl 4 mg 06/06/24 05:16 06/06/24 18:18 Ondansetron Inj 2 Mg/Ml Inj 2 Ml IV 07/06/24 05:15 4 mg Q6H PRN Administration NAUSEA OR VOMITING Protocol Plan Pierce Dixon 34-y/o male with a past medical history of spina bifida (wheelchair-bound), [employer] shunt, recurrent UTI, chronic nephrolithiasis s/p multiple stents, chronic hydronephrosis, HTN, anemia, multiple back surgeries presented to ED for abdominal and flank pain x 4 days. Associated dysuria, dark urine, urinary frequency. Denies fever, chills, nausea, sweats. Saw PCP and given p.o. antibiotics but symptoms persisted and came to ED. Dr. Morelos planned to remove stents next week regarding obstructive renal calculus. Admitted for further management of complicated UTI/hydronephrosis. # Pyelonephritis 2/2 Proteus mirabilis #History of frequent UTI #Bilateral hydronephrosis #Chronic pyelonephritis #Staghorn nephrolithiasis s/p bilateral stent placement Complicated urological history of recurrent UTI, hydronephrosis, nephrolithiasis, status post multiple ureteral stents. Patient does not meet sepsis criteria. CT A/P: Bilateral large staghorn calculi with bilateral ureteral stents. Moderate to advanced right hydronephrosis mild left hydronephrosis -stopped rocefin yesterday due to insensitivity ? Continue with Zosyn -Pain management--wean off Dilaudid 1 to 0.5 mg IV every 8 HR as needed -tramadol 100 mg p.o. every 6 HR as needed -preliminary blood cultures were negative -Dr. Morelos has been consulted. s/p Bi lateral ureteral stent replacement and laser stone fragmentation. Patient advised to follow-up outpatient with Dr. Morelos in 3 months #Acute kidney injury Baseline Cr 1.2 -today Cr 1.7 -Avoid nephrotoxic agents, renally dose medications -Hold home lisinopril in a setting of TRINI -stop fluid restriction -hydrate as needed -daily renal pannel #Hyponatremia 2/2 dilution-resolved -Na 135 today ?Fluid restriction removed ? Continue monitoring of sodium -Will replete as needed #Hypokalemia-resolved ? Continue to monitor daily potassium ? Replete as needed to maintain above 4.0 #Chronic microcytic anemia, likely due to iron deficiency -s/p x1 unit PRBC on 06/07/24 ? Today hemoglobin 8.8--has remained stable ? Monitor with daily CBC -Overall ferritin at time of discharge #History of hypertension ? Clonidine 0.1 mg p.o. 3 times daily #Spina bifida ? Follow-up outpatient Hospital management: Disposition: med surg, UTI tx, s/p ureteral stent placement Diet: Renal Lines: Peripheral DVT prophylaxis: Heparin GI prophylaxis: Not indicated, on diet Baker: Self-caths at home CODE STATUS: full code Plan discussed with attending physician Dr. Frost and senior residents Dr. Bella/Dr. Cevallos. Eulalia Arias, PGY-1 Attending Provider Attestation/Addendum I have examined the patient, reviewed labs and imaging findings, discussed the case with the resident(s), and reviewed entered orders. I agree with the plan of care as outlined in this note, with these additional summaries/recommendations: Patient seen at bedside. No acute overnight events. Patient underwent bilateral ureteral stent exchange yesterday with urology. Continue pain management. Patient's urine culture showed Proteus mirabilis only sensitive to IV antibiotics although suspect colonization. Will consult infectious disease for antibiotics. Acute kidney injury stable. Avoid nephrotoxic agents and renally dose medications. Dr. Frost
[2024-06-15] VITALS (11 sets, daily range): BP systolic 98–133; BP diastolic 69–91; PULSE 63–75; RESP 14–16; TEMP 36.3–36.8; O2SAT 98–100
[2024-06-15] MEDS: PIPERACILLIN/TAZO 2.25GM INJ 2.25 GM in SODIUM CHLORIDE 0.9% (P) 50 ML IV ×5 (00:14→23:37)
[2024-06-15] MEDS: HYDROmorphone INJ 2 MG/ML VIAL 0.5 MG IVP ×3 (02:42→11:01)
[2024-06-15] MEDS: cloNIDine HCL 0.1 MG TABLET PO ×3 (05:17→21:44)
[2024-06-15 05:54] LABS: Basophils % (Auto) 0 % (0-2.5); Eosinophils # (Auto) 0.2 Thou/mm3 (0.0-0.5); Eosinophils % (Auto) 3 % (0-10); Hematocrit 31.4 % (41.0-53.0); Hemoglobin 9.2 g/dL (13.5-16.0); Immature Granulocytes % (Auto) 0 % (0-0); Immature Granulocytes Auto 0.01 Thou/mm3 (0.00-0.00); Lymphocytes # (Auto) 1.1 Thou/mm3 (1.0-4.8); Lymphocytes % (Auto) 19 % (10-50); Mean Corpuscular HGB Conc 29.3 g/dl (31.0-37.0); Mean Corpuscular Volume 72 fL (80-100); Monocytes # (Auto) 0.4 Thou/mm3 (0.0-0.8); Monocytes % (Auto) 6 % (0-12); Neutrophils # (Auto) 4.4 Thou/mm3 (1.8-7.7); Neutrophils % (Auto) 72 % (37-80); Nucleated Red Blood Cell % 0 /100 WBC (0); Platelet Count 431 Thou/mm3 (140-440); RDW Standard Deviation 54.6 fL (35.1-43.9); Red Blood Count 4.38 Miln/mm3 (4.50-5.90); White Blood Count 6.2 Thou/mm3 (3.8-10.6)
[2024-06-15 06:32] LABS: Alanine Aminotransferase 8 U/L (10-49); Albumin, Serum 4.3 gm/dL (3.5-5.0); Albumin/Globulin Ratio 1.3 (1.2-2.2); Alkaline Phosphatase 69 U/L (46-116); Anion Gap 7 (7-16); Aspartate Amino Transferase 11 U/L (0-34); BUN/Creatinine Ratio 14 Ratio (12-20); Bilirubin,Total 0.4 mg/dL (0.3-1.2); Blood Urea Nitrogen 23 mg/dL (9-23); Calcium 9.7 mg/dL (8.3-10.6); Calcium (Corrected) 9.7 mg/dL (8.5-10.1); Carbon Dioxide 24.5 mMol/L (20.0-31.0); Chloride 108 mMol/L (98-107); Creatinine (Component) 1.6 mg/dL (0.6-1.3); Globulin 3.3 gm/dL (2.3-3.5); Glucose 86 mg/dL (74-106); Osmolality,Calculated 280 (275-295); Potassium 4.1 mMol/L (3.4-5.1); Sodium 139 mMol/L (136-145); Total Protein 7.6 gm/dL (5.7-8.2); eGFR 58 See Note
[2024-06-15] MEDS: amLODIPine BESYLATE 5 MG TABLET 10 MG PO (08:24)
--- NOTE | 2024-06-15 09:15 | PD.IDPROG ---
Subjective Subjective Interval history: asked to see to recommend assisted suppression for pt with stone. urine cx noted. Exam Vital Signs Temp Pulse Resp BP Pulse Ox O2 Del Method O2 Flow Rate 97.6 F 66 16 119/75 98 Room Air 2 06/15/24 07:33 06/15/24 08:24 06/15/24 07:33 06/15/24 08:24 06/15/24 07:33 06/15/24 07:33 06/13/24 12:55 Narrative Exam see dictation Objective - Internal Medicine Labs 06/15/24 05:03 06/15/24 05:03 Labs: Laboratory Results - last 24 hr 06/14/24 06/15/24 04:20 05:03 WBC 6.2 RBC 4.38 L Hgb 9.2 L Hct 31.4 L MCV 72 L MCH 21.0 L MCHC 29.3 L RDW Std Deviation 54.6 H Plt Count 431 D Neut % (Auto) 72 Lymph % (Auto) 19 [place] % (Auto) 6 Eos % (Auto) 3 Baso % (Auto) 0 Neut # (Auto) 4.4 Lymph # (Auto) 1.1 [place] # (Auto) 0.4 Eos # (Auto) 0.2 Baso # (Auto) 0.0 Immature Gran # (Auto) 0.01 H Absolute Nucleated RBC 0.00 Immature Gran % 0 Nucleated RBC % 0 Sodium 139 Potassium 4.1 Chloride 108 H Carbon Dioxide 24.5 Anion Gap 7 BUN 23 Creatinine 1.6 H Estim Creat Clear Calc 43.0 L eGFR 58 L BUN/Creatinine Ratio 14 Glucose 86 Calculated Osmolality 280 Calcium 9.7 Corrected Calcium 9.7 Iron 24 L TIBC 348 Iron Saturation 6 L Unsat Iron Binding 324 H Total Bilirubin 0.4 AST 11 ALT 8 L Alkaline Phosphatase 69 Total Protein 7.6 Albumin 4.3 Globulin 3.3 Albumin/Globulin Ratio 1.3 Assessment & Plan A&P Narrative ckd, presumably obstructive renal stone disease. bilateral obstructive staghorn calculi there is no readily available suppression in this setting. you can ask micro to do s to fosfomycin on urine and that can be given every 3d till stones removed usual dose of fosfomycin is 3 gm q 72 hr value of abx lower than stone removal, so [place] need [place] go [place] [facility] [place] out[place] if dr barwadj agrees to refer to that location. pt has bilateral nephrostomies in place insurance is a concern. Time Spent With Patient Time: Total time spent is greater than 50% in coordination of care (as documented) at patient's floor/unit and/or counseling patient:
--- NOTE | 2024-06-15 13:45 | PD.RESPRO ---
Documentation for date of: 06/15/24 Subjective Subjective Interval history: Patient was seen and examined at bedside. No acute events overnight. S/p ureteral sent placement. Dr. Barrios recommended to check for sensitivity of organism against fosfomycin as it is available for p.o. alternative. However, lab does not have that medication to crosscheck for sensitivity. Therefore, keep patient for 1 more day of IV Zosyn treatment. Wean off 0.5mg IV dilaudid and start home dose 2mg PO TID. Pain has improved with no complaints of dysuria. Creatinine today 1.6. Start patient on oral ferrous sulfate at time of discharge for his chronic iron deficiency anemia. Patient advised to seek management of staghorn calculi as it continues to rate remain the source of recurrent infections. He stated that there is difficulty in transportation as he lives alone and has no family for support. Anticipate discharge tomorrow. Review of systems otherwise negative except what is mentioned above. Exam Vital Signs Temp Pulse Resp BP Pulse Ox O2 Del Method O2 Flow Rate 97.6 F 65 15 112/76 98 Room Air 2 06/15/24 12:00 06/15/24 12:00 06/15/24 12:00 06/15/24 12:00 06/15/24 12:00 06/15/24 12:00 06/13/24 12:55 Narrative Exam General: Awake, answering questions appropriately HEENT: Atraumatic, normocephalic. No JVD noted. Mucosa moist. Cardiovascular: Normal S1 and S2. Regular rate and rhythm. No pitting edema Respiratory: Lungs are clear to auscultation bilaterally. No wheezing or crackles heard. Abdomen: Soft, nontender, not distended, normal bowel sounds, some right abdominal and right CVA tenderness but improved Skin: Warm to touch, dry, no rashes noted MSK/extremities: No gross injuries. Able to move all 4 extremities, atrophic b/L LE Neuro: Alert and oriented x3. No focal neuro deficits. Objective Labs 06/16/24 07:40 06/16/24 07:40 Labs: Laboratory Results - last 24 hr 06/15/24 05:03 WBC 6.2 RBC 4.38 L Hgb 9.2 L Hct 31.4 L MCV 72 L MCH 21.0 L MCHC 29.3 L RDW Std Deviation 54.6 H Plt Count 431 D Neut % (Auto) 72 Lymph % (Auto) 19 Sargent % (Auto) 6 Eos % (Auto) 3 Baso % (Auto) 0 Neut # (Auto) 4.4 Lymph # (Auto) 1.1 Sargent # (Auto) 0.4 Eos # (Auto) 0.2 Baso # (Auto) 0.0 Immature Gran # (Auto) 0.01 H Absolute Nucleated RBC 0.00 Immature Gran % 0 Nucleated RBC % 0 Sodium 139 Potassium 4.1 Chloride 108 H Carbon Dioxide 24.5 Anion Gap 7 BUN 23 Creatinine 1.6 H Estim Creat Clear Calc 43.0 L eGFR 58 L BUN/Creatinine Ratio 14 Glucose 86 Calculated Osmolality 280 Calcium 9.7 Corrected Calcium 9.7 Total Bilirubin 0.4 AST 11 ALT 8 L Alkaline Phosphatase 69 Total Protein 7.6 Albumin 4.3 Globulin 3.3 Albumin/Globulin Ratio 1.3 Quality Measures Quality Measures none Assessment & Plan Assessment Current Active Medications: Generic Name Dose Route Start Last Admin Trade Name Freq PRN Reason Stop Dose Admin Acetaminophen 650 mg 06/07/24 09:16 06/08/24 08:21 Acetaminophen 325 Mg Tablet PO 07/06/24 05:15 650 mg Q6H PRN Administration PAIN 1-3 OR FEVER > 101 Amlodipine Besylate 10 mg 06/07/24 09:00 06/15/24 08:24 Amlodipine Besylate 5 Mg Tablet PO 07/07/24 08:59 10 mg QDAY ARACELY Administration Clonidine 0.1 mg 06/08/24 14:00 06/15/24 05:17 Clonidine Hcl 0.1 Mg Tablet PO 07/08/24 13:59 0.1 mg TID ARACELY Administration Hydromorphone HCl 2 mg 06/15/24 14:00 06/15/24 13:39 Hydromorphone Hcl 2 Mg Tablet PO 06/20/24 13:59 Not Given Q8HR ARACELY Piperacillin Sod/Tazobactam 50 mls @ 100 mls/hr 06/13/24 10:43 06/15/24 11:31 Sod 2.25 gm/ Sodium Chloride IV 06/20/24 10:42 Infused Q6HR ARACELY Infusion Ondansetron HCl 4 mg 06/06/24 05:16 06/06/24 18:18 Ondansetron Inj 2 Mg/Ml Inj 2 Ml IV 07/06/24 05:15 4 mg Q6H PRN Administration NAUSEA OR VOMITING Protocol Plan Pierce Dixon 34-y/o male with a past medical history of spina bifida (wheelchair-bound), 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 Associated dysuria, dark urine, urinary frequency. Denies fever, chills, nausea, sweats. Saw PCP and given p.o. antibiotics but symptoms persisted and came to ED. Dr. Morelos planned to remove stents next week regarding obstructive renal calculus. Admitted for further management of complicated UTI/hydronephrosis. # Pyelonephritis 2/2 Proteus mirabilis #History of frequent UTI #Bilateral hydronephrosis #Chronic pyelonephritis #Staghorn nephrolithiasis s/p bilateral stent placement Complicated urological history of recurrent UTI, hydronephrosis, nephrolithiasis, status post multiple ureteral stents. Patient does not meet sepsis criteria. CT A/P: Bilateral large staghorn calculi with bilateral ureteral stents. Moderate to advanced right hydronephrosis mild left hydronephrosis ? Continue with Zosyn one more day -Pain management--home dose hydromorphone 2 mg p.o. 3 times daily -tramadol 100 mg p.o. every 6 HR as needed -preliminary blood cultures were negative -Dr. Morelos was been consulted. s/p Bi lateral ureteral stent replacement and laser stone fragmentation. Patient advised to follow-up outpatient with Dr. Morelos in 3 months #Acute kidney injury Baseline Cr 1.2 -today Cr 1.7 -Avoid nephrotoxic agents, renally dose medications -Hold home lisinopril in a setting of TRINI -stop fluid restriction -hydrate as needed -daily renal pannel #Hyponatremia 2/2 dilution-resolved -Na 135 today ?Fluid restriction removed ? Continue monitoring of sodium -Will replete as needed #Hypokalemia-resolved ? Continue to monitor daily potassium ? Replete as needed to maintain above 4.0 #Chronic iron deficiency anemia -s/p x1 unit PRBC on 06/07/24 ? Monitor with daily CBC -oral ferrous sulfate at time of discharge #History of hypertension ? Clonidine 0.1 mg p.o. 3 times daily #Spina bifida ? Follow-up outpatient Hospital management: Disposition: d/c tomorrow Diet: Renal Lines: Peripheral DVT prophylaxis: Heparin GI prophylaxis: Not indicated, on diet Baker: Self-caths at home CODE STATUS: full code Plan discussed with attending physician Dr. Frost and senior residents Dr. Bella. Eulalia Arias, PGY-1 Attending Provider Attestation/Addendum I have examined the patient, reviewed labs and imaging findings, discussed the case with the resident(s), and reviewed entered orders. I agree with the plan of care as outlined in this note, with these additional summaries/recommendations: Patient seen at bedside. No acute overnight events. Patient underwent bilateral ureteral stent exchange yesterday with urology. Continue pain management. Patient's urine culture showed Proteus mirabilis only sensitive to IV antibiotics although suspect colonization. Will consult infectious disease for antibiotics. Acute kidney injury stable. Avoid nephrotoxic agents and renally dose medications. Dr. Frost
--- NOTE | 2024-06-15 14:06 | ESCONSULT_ITS ---
RE: JOSE MELGAR : 1990 DATE OF CONSULTATION: 06/15/2024 REFERRING PHYSICIAN: Dr. Adkins, hospitalist. REASON FOR CONSULTATION: Abnormal urine culture with resistant organism in a 34-year-old. HISTORY OF PRESENT ILLNESS: The patient is an unfortunate 34-year-old with spina bifida, he has been in a wheelchair for years. He reports that he has had paraplegic since . He lives by himself. I likely have seen him in the past, it was quite some time ago. ALLERGIES: NONE NOTED. IMMUNIZATIONS: Last tetanus is not known. He does not take flu shot every year, has not had a COVID vaccine or pneumococcal vaccine. FAMILY HISTORY: Unremarkable. SOCIAL HISTORY: He lives alone. He gets around in a wheelchair. PHYSICAL EXAMINATION: The patient has a benign examination. He reports feeling from the knees distally at least proximally, but not below the knees. He has a bowel and bladder program we should continue. He does self catheterization. He has apparently renal stents in place. He has a staghorn calculi that probably needs to be removed. ASSESSMENT: Resistant organisms in his urine with staghorn calculi noted RECOMMENDATIONS: The patient should have removal of staghorn calculi performed at some point. perhaps Dr. Morelos can do it here locally or perhaps he can go to [facility] and have it done. In the meantime if the organism is sensitive to fosfomycin, we can look at that as 3 grams every other day or every third day indefinitely. The drug seems to be well tolerated and if s is verified in the lab, it is a viable option for oral rx DT: 11:04:56 TT: 13:27:00 Ref: [id number] - TID: [id number] MTDHoracio
[2024-06-15] MEDS: ONDANSETRON INJ 2 MG/ML INJ 2 ML 4 MG IV (16:07)
[2024-06-15] MEDS: HYDROMORPHONE HCL 2 MG TABLET PO (21:44)
[2024-06-16] VITALS: BP 130/92; PULSE 72; RESP 18; TEMP 36.7; O2SAT 99
[2024-06-16 04:00] VITALS: BP 130/96; PULSE 73; RESP 18; TEMP 36.4; O2SAT 100
[2024-06-16] MEDS: PIPERACILLIN/TAZO 2.25GM INJ 2.25 GM in SODIUM CHLORIDE 0.9% (P) 50 ML IV (05:27)
[2024-06-16 05:34] VITALS: BP 130/96; PULSE 73
[2024-06-16] MEDS: HYDROMORPHONE HCL 2 MG TABLET PO (05:34)
[2024-06-16] MEDS: cloNIDine HCL 0.1 MG TABLET PO (05:34)
[2024-06-16 08:00] VITALS: BP 120/87; PULSE 63; RESP 18; TEMP 36.1; O2SAT 100
[2024-06-16 08:33] VITALS: BP 120/87; PULSE 63
[2024-06-16] MEDS: amLODIPine BESYLATE 5 MG TABLET 10 MG PO (08:33)
[2024-06-16 08:43] LABS: Basophils % (Auto) 1 % (0-2.5); Eosinophils # (Auto) 0.2 Thou/mm3 (0.0-0.5); Eosinophils % (Auto) 3 % (0-10); Hemoglobin 9.5 g/dL (13.5-16.0); Immature Granulocytes % (Auto) 0 % (0-0); Immature Granulocytes Auto 0.02 Thou/mm3 (0.00-0.00); Lymphocytes # (Auto) 1.2 Thou/mm3 (1.0-4.8); Lymphocytes % (Auto) 18 % (10-50); Mean Corpuscular HGB Conc 29.7 g/dl (31.0-37.0); Mean Corpuscular Hemoglobin 21.3 pg (25.0-35.0); Mean Corpuscular Volume 72 fL (80-100); Monocytes # (Auto) 0.4 Thou/mm3 (0.0-0.8); Monocytes % (Auto) 6 % (0-12); Neutrophils # (Auto) 4.6 Thou/mm3 (1.8-7.7); Neutrophils % (Auto) 72 % (37-80); Nucleated Red Blood Cell % 0 /100 WBC (0); Platelet Count 463 Thou/mm3 (140-440); RDW Standard Deviation 55.8 fL (35.1-43.9); Red Blood Count 4.46 Miln/mm3 (4.50-5.90); White Blood Count 6.4 Thou/mm3 (3.8-10.6)
[2024-06-16 09:01] LABS: Anion Gap 7 (7-16); BUN/Creatinine Ratio 14 Ratio (12-20); Blood Urea Nitrogen 23 mg/dL (9-23); Calcium 9.7 mg/dL (8.3-10.6); Carbon Dioxide 20.6 mMol/L (20.0-31.0); Chloride 110 mMol/L (98-107); Creatinine (Component) 1.6 mg/dL (0.6-1.3); Estimated Creatinine Clearance 39.7 mL/min (>60); Glucose 87 mg/dL (74-106); Osmolality,Calculated 278 (275-295); Potassium 4.1 mMol/L (3.4-5.1); Sodium 138 mMol/L (136-145); eGFR 58 See Note
[2024-06-16 09:53] LABS: HIV (1&2) Antibody Rapid Non-Reactive
--- NOTE | 2024-06-16 10:59 | PC.SS ---
Cook Syrup Maker (SANDEEP) Richa met with patient [id number] to discuss discharge plan. SW introduced self, role and reason for visit. Patient appeared alert and oriented to self, place and situation. Patient reported that he will return home and his girlfrien will provide transportation. No other social needs.
--- NOTE | 2024-06-16 15:25 | ESDS_ITS ---
<Statement entered by Harleen Cevallos MD - 06/16/24 16:04> I discussed with and supervised the internal control analyst physician who took care of this patient. I personally saw and examined the patient and discussed the assessment and plan with the entire medicine team, including my attending , I agree with most of the assessment and plan as documented below Harleen Cevallos M.D. PGY-2 Planned Discharge Date 06/16/24 DS: Providers Provider Date of admission: 06/06/24 05:16 Primary care physician: Vandana Sears NP Admitting Provider: Manuel Martinez MD Attending Provider on Admission: Arnold Frost MD Consults: 06/06/24 11:47 Health Equity Referral - Nutrition Routine Comment: Positive screening for nutrition needs. Health Equity Referral - Transportation Routine Comment: Positive screening for transportation needs. 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 Patient was found to have chronic staghorn calculi and positive for Proteus mirabilis pyelonephritis, so was started on IV antibiotics, had his pain manage, electrolytes repleted as needed, and had one blood transfusion for a low hemoglobin level. On 06/13/2024, urologist Dr. Morelos took patient to have his bilateral ureteral stents replaced, and recommended against further usage of IV antibiotics unless patient remains symptomatic. On 06/16/2024, patient was medically cleared for discharge with instructions to follow up with his PCP within a week, urology in 3 months, and to take iron supplements every other day as treatment for his chronic iron deficiency anemia. DISCHARGE INSTRUCTIONS: Follow-up with your PCP within 1 week Follow-up with your Urologist within 3 months Continue all your home medications as prescribed Start taking Ferrous Sulfate every other day for your anemia Sent three days worth of Hydromorphone for your pain, ask you PCP to refer you to a Pain Specialist Use straight catheterization as needed If your symptoms worsen or experience new/worsening pain, shortness or fever - please come back to the ED #Pyelonephritis, secondary to Proteus mirabilis #History of frequent UTI #Bilateral hydronephrosis #Chronic pyelonephritis #Staghorn nephrolithiasis s/p bilateral stent placement #Acute kidney injury #Hyponatremia #Hypokalemia #Chronic iron deficiency anemia #Essential Hypertension #Spina bifida Status at Discharge Overall status at discharge: patient is progressing back to baseline Time Spent with Patient Time attestation: Total time spent providing and/or coordinating discharge services: Time spent: Greater than 30 minutes Exam Vital Signs Temp Pulse Resp BP Pulse Ox O2 Del Method O2 Flow Rate 96.9 F 63 18 120/87 H 100 Room Air 2 06/16/24 08:00 06/16/24 08:33 06/16/24 08:00 06/16/24 08:33 06/16/24 08:00 06/16/24 08:00 06/13/24 12:55 Narrative Exam General: Awake, answering questions appropriately HEENT: Atraumatic, normocephalic. No JVD noted. Mucosa moist. Cardiovascular: Normal S1 and S2. Regular rate and rhythm. No pitting edema Respiratory: Lungs are clear to auscultation bilaterally. No wheezing or crackles heard. Abdomen: Soft, nontender, not distended, normal bowel sounds, some right abdominal and right CVA tenderness but improved Skin: Warm to touch, dry, no rashes noted MSK/extremities: No gross injuries. Able to move all 4 extremities, atrophic b/L LE Neuro: Alert and oriented x3. No focal neuro deficits. Discharge Plan Plan Patient Disposition: HOME (Self Care) Prescriptions/Referrals Prescriptions/Med Rec: New hydromorphone 2 mg tablet 2 mg PO Q8H MDD 3 tabs PRN (Reason: pain) Qty: 9 0RF ferrous sulfate 325 mg (65 mg iron) tablet 325 mg PO Q OTHER DAY Qty: 15 0RF Continued clonidine HCl 0.1 mg tablet 0.1 mg PO DAILY amlodipine 10 mg tablet 10 mg PO DAILY Patient Comments: TAKE 1 TABLET BY MOUTH EVERY DAY hydromorphone 2 mg tablet 2 mg PO TID PRN (Reason: Pain) Patient Comments: TAKE 1 TABLET BY MOUTH THREE TIMES A DAY NEEDED Rx Instructions: kidney pain Referrals: Vandana Sears NP [Primary Care Provider] - Patient/Caregiver Discharge Instructions Other Discharge Activity Instructions:: Follow-up with your PCP within 1 week Follow-up with your Urologist within 3 months Continue all your home medications as prescribed Start taking Ferrous Sulfate every other day for your anemia Sent three days worth of Hydromorphone for your pain, ask you PCP to refer you to a Pain Specialist Use straight catheterization as needed If your symptoms worsen or experience new/worsening pain, shortness or fever - please come back to the ED Education Materials: Anemia and Kidney Disease Print Language: Tajik Stand Alone Forms: Leyla Award Info., Patient Portal Info Letter Discharge Order Discharge Orders: Discharge (Routine); Ordered 06/16/24 Ordered By: Harleen Cevallos Quality Discharge Quality Measures VTE prophylaxis Attestestation MD Attestation I have examined the patient, reviewed labs and imaging findings, discussed the case with the resident(s), and reviewed entered orders. I agree with the plan of care as outlined in this note. Dr. Frost
[2024-06-17 01:00] LABS: Hepatitis C Antibody Non Reactive (Non React)
== END 2024-06-16 11:12 | disposition home or self-care (01) | DRG 463 ==
LOC: SERX 05:28 → SERHOLD 06:11 → S3NX 06-07 07:10
PROVIDERS: Internal Medicine; Internal Medicine Infectious Disease; Student in an Organized Health Care Education/Training Program; Urology; Admitting Provider Internal Medicine; Emergency Provider Emergency Medicine; PCP Nurse Practitioner Family; Visit Provider Student in an Organized Health Care Education/Training Program
PROC: 0TJB8ZZ Inspection of Bladder, Via Natural or Artificial Opening Endoscopic (ICD-10-PCS; CPT 52000; principal; 2024-06-13 13:00)
DX: N13.6 Pyonephrosis (principal); Z99.3 Dependence on wheelchair; Q05.9 Spina bifida, unspecified; N17.9 Acute kidney failure, unspecified; D50.9 Iron deficiency anemia, unspecified; B96.4 Proteus (mirabilis) (morganii) as the cause of diseases classified elsewhere; E87.1 Hypo-osmolality and hyponatremia; E87.6 Hypokalemia; E87.20 Acidosis, unspecified; I12.9 Hypertensive chronic kidney disease with stage 1 through stage 4 chronic kidney disease, or unspecified chronic kidney disease; N18.9 Chronic kidney disease, unspecified; Z98.2 Presence of cerebrospinal fluid drainage device
CPT/HCPCS: 36415; 74177; 74420; 80048; 80053; 81001; 83540; 83550; 83690; 83735; 84100; 84132; 85014; 85018; 85025; 85610; 85730; 86703; 86803; 86850; 86900; 86901; 86923; 87040; 87077; 87086; 87186; 93005; 96360; 96361; 96372; 96374; 99285; A4217; A4649; C1769; C1894; C2617; J0131; J0696; J1580; J1885; J1940; J2250; J2270; J2371; J2405; J2543; J2704; J3010; J3490; J7030; J7050; P9016; Q9967; A9270

== ENCOUNTER 2024-10-01 21:53 | Emergency (ER) | payer MEDICAID, SELFPAY ==
--- NOTE | 2024-10-01 00:02 | XR_ITS ---
Examination: CT abdomen and pelvis without contrast. Coronal 3-D reconstructions. Sagittal 2-D reconstructions. Date and time of exam:October 06, 2024 1151 hrs. Indications: Bilateral flank pain beginning today CTDI: vol (mGy): 5.69 DLP: (mGycm): 264 Technique: Axial images of the abdomen have been obtained, 3 mm slice thickness Intravenous contrast material has not been administered. Low dose protocols were performed. One or more of the following dose reduction techniques were used; automated exposure control, adjustment of the mA and/or KV according to patient size, use of iterative reconstruction technique. Findings: No focal liver or splenic lesions No pancreatic mass Numerous bilateral large renal calculi Edematous right kidney, edema involving both kidneys Bilateral ureteral stents satisfactory position Aorta normal size No bowel obstruction Mild thickening of urinary bladder wall No bowel obstruction Severe lumbar dextroscoliosis Old deformities of the right femur Impression: Numerous bilateral large renal calculi Bilateral pyelonephritis Bilateral ureteral stents satisfactory position although mild to moderate bilateral hydronephrosis Cystitis pattern
[2024-10-01 22:45] VITALS: BP 169/100; PULSE 118; RESP 18; TEMP 37.4; O2SAT 98
--- NOTE | 2024-10-01 22:53 | PD.EDRME ---
Rapid Medical Screening Exam RME Arrival date/time: 10/01/24 21:53 34-year-old male with a history of renal stents reports with complaints of severe flank pain and dysuria x 1 day Chief Complaint: Abdominal Pain Time Seen by Provider: 10/01/24 22:21 Vital signs: Vital Signs Temperature 99.4 F 10/01/24 22:45 Pulse Rate 118 H 10/01/24 22:45 Respiratory Rate 18 10/01/24 22:45 Blood Pressure 169/100 H 10/01/24 22:45 Pulse Oximetry (%) 98 10/01/24 22:45 Oxygen Delivery Method Room Air 10/01/24 22:45
[2024-10-01 23:55] LABS: Basophils % (Auto) 0 % (0-2.5); Eosinophils # (Auto) 0.1 Thou/mm3 (0.0-0.5); Eosinophils % (Auto) 1 % (0-10); Immature Granulocytes % (Auto) 0 % (0-0); Immature Granulocytes Auto 0.03 Thou/mm3 (0.00-0.00); Lymphocytes # (Auto) 0.8 Thou/mm3 (1.0-4.8); Lymphocytes % (Auto) 8 % (10-50); Mean Corpuscular HGB Conc 30.7 g/dl (31.0-37.0); Mean Corpuscular Volume 72 fL (80-100); Monocytes % (Auto) 9 % (0-12); Neutrophils # (Auto) 8.9 Thou/mm3 (1.8-7.7); Neutrophils % (Auto) 81 % (37-80); Nucleated Red Blood Cell % 0 /100 WBC (0); Platelet Count 395 Thou/mm3 (140-440); RDW Standard Deviation 50.8 fL (35.1-43.9); Red Blood Count 3.91 Miln/mm3 (4.50-5.90); White Blood Count 10.9 Thou/mm3 (3.8-10.6)
[2024-10-02] LABS: Hemoglobin 8.6 g/dL (13.5-16.0)
[2024-10-02 00:11] LABS: Alanine Aminotransferase 8 U/L (10-49); Albumin, Serum 4.3 gm/dL (3.5-5.0); Albumin/Globulin Ratio 1.4 (1.2-2.2); Alkaline Phosphatase 110 U/L (46-116); Anion Gap 9 (7-16); Aspartate Amino Transferase 10 U/L (0-34); BUN/Creatinine Ratio 16 Ratio (12-20); Bilirubin,Total 0.6 mg/dL (0.3-1.2); Blood Urea Nitrogen 26 mg/dL (9-23); Calcium 9.6 mg/dL (8.3-10.6); Calcium (Corrected) 9.6 mg/dL (8.5-10.1); Chloride 105 mMol/L (98-107); Creatinine (Component) 1.6 mg/dL (0.6-1.3); Glucose 96 mg/dL (74-106); Osmolality,Calculated 278 (275-295); Potassium 3.5 mMol/L (3.4-5.1); Sodium 137 mMol/L (136-145); Total Protein 7.3 gm/dL (5.7-8.2); eGFR 58 See Note
[2024-10-02 00:18] LABS: Collection Type, Urine Clean Catch; Squamous Epithelial Cell,Urine 0 /hpf (0-5)
[2024-10-02 00:31] LABS: Bilirubin,Urine Negative (Negative); Blood,Urine 2+ (Negative); Budding Yeast,Urine Present; Color,Urine Orange (Lt Yel-Yel); Glucose, Urine Negative (Negative); Ketones,Urine Negative (Negative); Leukocyte Esterase,Urine Positive (Negative); Nitrite,Urine Negative (Negative); PH,Urine 8.5 (5.0-7.0); Protein,Urine 3+ (Neg - Trace); RBC,Urine 124 /hpf (0-3); WBC,Urine 153 /hpf (0-5)
[2024-10-02 00:35] LABS: Clarity,Urine Turbid (Clear/Hazy)
[2024-10-02 00:36] LABS: Culture Indicated,Urine Yes
--- NOTE | 2024-10-02 02:38 | PD.EDABDPN ---
ED Abdominal Pain RME/HPI General Chief Complaint: Abdominal Pain Stated complaint: BILATERAL FLANK PAIN Time seen by provider: 10/01/24 22:21 Arrival date/time: 10/01/24 21:53 34 year old male present to emergency room with c/o of ongoing bilateral flank pain worsen today. pt report pain is consisted with hx of chronic UTI. LOCATION: flank SEVERITY: Symptoms are described as being severe with limitations on activities of daily living QUALITY: Symptoms are described as being cramping CONTEXT: The patient is unable to identify any inciting events. DURATION/TIMING: The symptoms started approximately one day ago and have been waxing/waning but always present without ever completely resolving. ASSOCIATED SYMPTOMS: flank and dysuria, MODIFYING FACTORS: The patient is unable to identify any alleviating or aggravating symptoms. PERTINENT ROS: no fevers, no anorexia, no nausea or vomiting, no diarrhea, no ripping or tearing sensations, no syncope or presyncopal symptoms, denies trauma, denies genital pain REVIEW OF SYSTEMS: See History of Present Illness - with the exception of those mentioned in the history of present illness, all other systems reviewed and reported as negative GENERAL: In general the patient is awake, interactive, in an emergency department gurney. HEAD/EYES/EARS/NOSE/THROAT: normo-cephalic, atraumatic, mucus membranes are moist, anicteric, palpebral conjunctiva is pink, trachea is midline. CARDIOVASCULAR: regular rate and regular rhythm, no murmurs, heart sounds are not distant, strong pulses in all four extremities that are equal and symmetric bilateral upper and lower extremities, normal capillary refill. CHEST/PULMONARY: normal chest rise and fall, good air movement, clear to auscultation bilaterally, normal inspiratory to expiratory ratios without evidence of respiratory distress. NECK: No midline/Paraspinal tenderness, no step off ROM/Strenght intact No Kernig and bruzinski sign. No trauma ABDOMEN: soft, not tender, no masses appreciated BACK: normal range of motion without pain. wheel chair bound paralegia SKIN: warm, dry, well-perfused, no jaundice, no rash, no telangiectasias or petechia. PSYCH: calm, cooperative, no evidence of psychosis or agitation RME / HPI RME / HPI narrative: 10/01/24 21:53 34-year-old male with a history of renal stents reports with complaints of severe flank pain and dysuria x 1 day Related Data Home Medications ?Medication ?Instructions ?Recorded ?Confirmed amlodipine 10 mg tablet 10 mg PO DAILY 06/06/24 06/06/24 clonidine HCl 0.1 mg tablet 0.1 mg PO DAILY 06/06/24 06/06/24 hydromorphone 2 mg tablet 2 mg PO TID PRN Pain 06/06/24 Previous Rx's ?Medication ?Instructions ?Recorded ferrous sulfate 325 mg (65 mg 325 mg PO Q OTHER DAY #15 tabs 06/16/24 iron) tablet hydromorphone 2 mg tablet 2 mg PO Q8H PRN pain #9 tabs 06/16/24 Allergies Allergy/AdvReac Type Severity Reaction Status Date / Time latex Allergy Severe RASH Verified 06/06/24 19:50 Course Quality Measures none Orders Category Date Time Status CT abdomen pelvis wo con Stat Exams 10/01/24 00:02 Completed CBC Stat Lab 10/01/24 23:36 Completed CMP [Comprehensive Metabolic Panel] Stat Lab 10/01/24 23:36 Completed UA, C/S IF [Urinalysis, C/S if Indicated] Stat Lab 10/01/24 23:59 Completed Urine Culture Stat Lab 10/01/24 23:59 Received Morphine Inj Med 10/02/24 02:36 Once 5 mg IM X1 ONE Vital Signs Vital signs: Vital Signs Temperature 99.4 F 10/01/24 22:45 Pulse Rate 118 H 10/01/24 22:45 Respiratory Rate 18 10/01/24 22:45 Blood Pressure 169/100 H 10/01/24 22:45 Pulse Oximetry (%) 98 10/01/24 22:45 Oxygen Delivery Method Room Air 10/01/24 22:45 Abdominal Pain MDM Patient data External records reviewed:: [facility] previous records Clinical information provided by:: patient Social determinants that could affect healthcare access:: none Patient has the following chronic illnesses:: as stated in chart How is presenting disease/condition affected by chronic disease/condition?: exacerbated by Evaluation data The following diagnostics were reviewed and interpreted by me:: lab results and radiology exam(s) Lab and/or radiology exams considered but not ordered:: n/a Interpretation Summary: cbc/cmp similar from previous urine no infection ct: Impression: Numerous bilateral large renal calculi Bilateral pyelonephritis Bilateral ureteral stents satisfactory position although mild to moderate bilateral hydronephrosis Cystitis pattern Medications / Prescriptions Medications or Prescriptions considered but not ordered:: n/a Medication administrations:: Medication Administration History Morphine Sulfate (Morphine Sulf Inj 10 Mg/Ml Vial) 5 mg IM X1 ONE Stop: 10/02/24 02:37 n/a Consultations Consultation(s) initiated? (list below): No Diagnosis Differential diagnosis abdominal pain: abdominal pain, calculus of kidney, gastroenteritis and other Most likely diagnosis given after review of the tests above:: bilateral flank pain Admission Indicated Admission indicated?: not indicated Admission Request Was there a request for admission?: No Disposition Plan Disposition Plan: Discharge Discharge Attestation Discharge Attestation: The patient and all family members were given an opportunity to ask questions and understood the discharge instructions. Discharge instructions specifically effects, indications for sooner follow up or return to the emergency department, and the expected course of current diagnosis. Patient condition: Stable Discharge Plan Plan Patient Disposition: HOME (Self Care) Health Concerns: Follow up with your PCP and specialist Return to ED if symptoms worsen Prescriptions/Referrals Prescriptions/Med Rec: No Action clonidine HCl 0.1 mg tablet 0.1 mg PO DAILY amlodipine 10 mg tablet 10 mg PO DAILY Patient Comments: TAKE 1 TABLET BY MOUTH EVERY DAY hydromorphone 2 mg tablet 2 mg PO TID PRN (Reason: Pain) Patient Comments: TAKE 1 TABLET BY MOUTH THREE TIMES A DAY NEEDED Rx Instructions: kidney pain hydromorphone 2 mg tablet 2 mg PO Q8H MDD 3 tabs PRN (Reason: pain) Qty: 9 0RF ferrous sulfate 325 mg (65 mg iron) tablet 325 mg PO Q OTHER DAY Qty: 15 0RF Referrals: Vandana Sears NP [Primary Care Provider] - In 1 week Problem List Clinical Impression: Bilateral flank pain Patient/Caregiver Discharge Instructions Education Materials: Measuring Your Pain Print Language: Greenlandic Stand Alone Forms: Leyla Award Info., Patient Portal Info Letter
[2024-10-02] MEDS: MORPHINE SULF INJ 10 MG/ML VIAL 5 MG IM (02:55)
[2024-10-02 03:16] VITALS: BP 199/130; PULSE 108; RESP 18; O2SAT 99
== END 2024-10-02 03:17 | disposition home or self-care (01) ==
PROVIDERS: Physician Assistant; Emergency Provider Emergency Medicine; PCP Nurse Practitioner Family
DX: N13.6 Pyonephrosis (principal); Z96.0 Presence of urogenital implants; Z91.040 Latex allergy status
CPT/HCPCS: 36415; 74176; 80053; 81001; 85025; 87077; 87086; 87186; 96372; 99283; J2270

== ENCOUNTER 2024-10-04 13:39 | Emergency (ER) | payer MEDICAID, SELFPAY ==
--- NOTE | 2024-10-04 | XR_ITS ---
Examination: CT abdomen and pelvis without contrast. Coronal 3-D reconstructions. Sagittal 2-D reconstructions. Date and time of exam:October 04, 2024 1836 hrs. Comparison October 01, 2024 Indications: Bilateral flank pain beginning 2 weeks ago, history pyelonephritis CTDI: vol (mGy): 4.96 DLP: (mGycm): 249 Technique: Axial images of the abdomen have been obtained, 3 mm slice thickness Intravenous contrast material has not been administered. Low dose protocols were performed. One or more of the following dose reduction techniques were used; automated exposure control, adjustment of the mA and/or KV according to patient size, use of iterative reconstruction technique. Findings: No focal liver or splenic lesions No gallstones Multiple bilateral large staghorn calculi with bilateral ureteral stents Perinephric and periureteral stranding Edematous bilateral kidneys Small pericaval periaortic lymph nodes Marked thickening of urinary bladder wall Extensive lumbar laminectomy with soft tissue density Soft tissue density also extending to the rectum in the lower pelvis axial image 197 without fluid-filled drainable area, clinical correlation advised The sacrococcygeal segments appear intact Impression: Bilateral chronic-appearing pyelonephritis cystitis pattern Extensive bilateral staghorn calculi
[2024-10-04 13:40] VITALS: BMI 25.4
[2024-10-04 13:53] VITALS: BP 184/107; PULSE 111; RESP 18; TEMP 37.2; O2SAT 98
--- NOTE | 2024-10-04 14:10 | EDRME_ITS ---
Rapid Medical Screening Exam [facility] Arrival date/time: 10/04/24 13:39 CC: Bilateral flank pain HPI ongoing for months, recurrent, patient is scheduled for surgery with Dr. Morelos on October 08, patient cannot tolerate the pain anymore denies fever. Note was seen here 3 days ago diagnosed with pyelonephritis and discharged home Chief Complaint: General Adult/Misc Complain Vital signs: Vital Signs Temperature 99.0 F 10/04/24 13:53 Pulse Rate 111 H 10/04/24 13:53 Respiratory Rate 18 10/04/24 13:53 Blood Pressure 184/107 H 10/04/24 13:53 Pulse Oximetry (%) 98 10/04/24 13:53 Oxygen Delivery Method Room Air 10/04/24 13:53
[2024-10-04] MEDS: MORPHINE SULF INJ 10 MG/ML VIAL 5 MG IM (15:16)
[2024-10-04 15:47] LABS: Basophils % (Auto) 0 % (0-2.5); Eosinophils % (Auto) 0 % (0-10); Hematocrit 33.3 % (41.0-53.0); Hemoglobin 10.1 g/dL (13.5-16.0); Immature Granulocytes % (Auto) 0 % (0-0); Immature Granulocytes Auto 0.01 Thou/mm3 (0.00-0.00); Lymphocytes # (Auto) 0.5 Thou/mm3 (1.0-4.8); Lymphocytes % (Auto) 6 % (10-50); Mean Corpuscular HGB Conc 30.3 g/dl (31.0-37.0); Mean Corpuscular Hemoglobin 22.1 pg (25.0-35.0); Mean Corpuscular Volume 73 fL (80-100); Monocytes # (Auto) 0.6 Thou/mm3 (0.0-0.8); Monocytes % (Auto) 8 % (0-12); Neutrophils % (Auto) 85 % (37-80); Nucleated Red Blood Cell % 0 /100 WBC (0); Platelet Count 400 Thou/mm3 (140-440); RDW Standard Deviation 50.7 fL (35.1-43.9); Red Blood Count 4.57 Miln/mm3 (4.50-5.90); White Blood Count 8.2 Thou/mm3 (3.8-10.6)
--- NOTE | 2024-10-04 17:18 | PD.EDADULT ---
ED General RME/HPI General Chief complaint: General Adult/Misc Complain Stated complaint: Kidney pain Time Seen by Provider: 10/04/24 16:57 Arrival date/time: 10/04/24 13:39 RME / HPI RME / HPI narrative: 34-year-old male patient with significant history of spina bifida, wheelchair-bound, came in for evaluation regarding bilateral flank pain HPI ongoing for months, recurrent, patient is scheduled for surgery with Dr. Morelos on October 08, patient cannot tolerate the pain anymore denies fever. Note was seen here 3 days ago diagnosed with pyelonephritis and discharged home. Denies any fever denies any vomiting. Related Data Home Medications ?Medication ?Instructions ?Recorded ?Confirmed amlodipine 10 mg tablet 10 mg PO DAILY 06/06/24 06/06/24 clonidine HCl 0.1 mg tablet 0.1 mg PO DAILY 06/06/24 06/06/24 hydromorphone 2 mg tablet 2 mg PO TID PRN Pain 06/06/24 Previous Rx's ?Medication ?Instructions ?Recorded ferrous sulfate 325 mg (65 mg 325 mg PO Q OTHER DAY #15 tabs 06/16/24 iron) tablet hydromorphone 2 mg tablet 2 mg PO Q8H PRN pain #9 tabs 06/16/24 cefuroxime axetil 500 mg tablet 500 mg PO BID 10 days #20 tabs 10/04/24 Allergies Allergy/AdvReac Type Severity Reaction Status Date / Time latex Allergy Severe RASH Verified 10/04/24 13:43 Review of Systems Review of Systems Narrative Review of Systems: Review of system reviewed and within normal limits except mentioned in HPI ED Exam Narrative Physical exam: VITAL SIGNS: Reviewed. GENERAL APPEARANCE: Alert and interactive, follows commands, no acute distress, HEAD AND FACE: Non-traumatic. ENT: PERRL, pink conjunctivitis, eyelid no trauma, Mucous membrane moist. NECK: Supple, nontender, no nuchal rigidity. CHEST: No tenderness, no crepitus, no paradoxical movement, no retractions. LUNGS: Clear, well ventilated, symmetric, no rales, no wheezing, no ronchi, no stridor, good breath sounds bilaterally. HEART: Regular rate, regular rhythm, no murmur, no gallops. ABDOMEN: Soft, positive bowel sounds, nondistended, no guarding, bilateral flank tenderness, no rebound, no masses, RECTAL: Deferred. GENITAL: Deferred. NEUROLOGICAL: Gross motor function intact sensory function intact, Appropriate for age. MUSCULOSKELETAL: low back nontender, full range of motion. EXTREMITIES: Bilateral lower extremity atrophy, with limitation range of motion. SKIN: Color pink, dry, no rash, no lacerations, no abrasions, no contusions. LYMPHATICS: Deferred. Course Quality Measures none Orders Category Date Time Status Saline [Insert IV] NOW Care 10/04/24 14:[address] abdomen pelvis wo con Stat Exams 10/04/24 Completed Blood Culture (Lab) Stat Lab 10/04/24 23:10 Received CBC Stat Lab 10/04/24 15:35 Completed CMP [Comprehensive Metabolic Panel] Stat Lab 10/04/24 16:23 Completed Lactate (Lactic Acid) Stat Lab 10/04/24 23:15 Completed Lactic Acid [Lactate (Lactic Acid)] Stat Lab 10/04/24 15:35 Completed Procalcitonin Stat Lab 10/04/24 16:23 Completed Procalcitonin Stat Lab 10/04/24 23:15 Completed HYDROmorphone INJ [Dilaudid Inj] Med 10/04/24 17:49 Discontinued 1 mg IVP X1 ONE HYDROmorphone INJ [Dilaudid Inj] Med 10/04/24 22:15 Discontinued 1 mg IVP X1 ONE HYDROmorphone INJ [Dilaudid Inj] Med 10/04/24 23:25 Discontinued 2 mg IM X1 ONE Morphine Inj Med 10/04/24 14:08 Discontinued 4 mg IVP X1 ONE Morphine Inj Med 10/04/24 15:06 Discontinued 5 mg IM X1 ONE Ondansetron Inj [Zofran Inj] Med 10/04/24 14:08 Discontinued 4 mg IV X1 ONE Piper/Tazo 3.375 gm Premix [Zosyn] Med 10/04/24 22:12 Discontinued 3.375 gm in 50 ml IV X1 Sodium Chloride 0.9% 1000 ml [Ns] 1,000 ml Med 10/04/24 14:09 Discontinued IV 999 mls/hr Sodium Chloride 0.9% 1000 ml [Ns] 1,000 ml Med 10/04/24 23:10 Discontinued IV 999 mls/hr cefTRIAXone [Rocephin] 2 gm Med 10/04/24 23:19 Discontinued SODIUM CHLORIDE 0.9% (Popper) [Ns 0.9% (P)] 50 ml IV X1 Vital Signs Vital signs: Vital Signs Temperature 99.0 F 10/04/24 13:53 Pulse Rate 111 H 10/04/24 13:53 Respiratory Rate 18 10/04/24 13:53 Blood Pressure 184/107 H 10/04/24 13:53 Pulse Oximetry (%) 98 10/04/24 13:53 Oxygen Delivery Method Room Air 10/04/24 13:53 [facility] Patient data External records reviewed:: [facility] previous records Clinical information provided by:: patient Social determinants that could affect healthcare access:: none Patient has the following chronic illnesses:: Spina bifida, bilateral staghorn calculi How is presenting disease/condition affected by chronic disease/condition?: exacerbated by Evaluation data The following diagnostics were reviewed and interpreted by me:: lab results and radiology exam(s) Lab and/or radiology exams considered but not ordered:: None Interpretation Summary: See results in [facility] Medications Medications considered but not ordered:: None Medication administrations:: Medication Administration History Discontinued Medications Hydromorphone HCl (Hydromorphone Inj 2 Mg/Ml Vial) 1 mg IVP X1 ONE Stop: 10/04/24 17:50 Last Admin: 10/04/24 18:12 Dose: 1 mg Documented By: RD Hydromorphone HCl (Hydromorphone Inj 2 Mg/Ml Vial) 1 mg IVP X1 ONE Stop: 10/04/24 22:16 Last Admin: 10/04/24 22:58 Dose: 1 mg Documented By: KG Hydromorphone HCl (Hydromorphone Inj 2 Mg/Ml Vial) 2 mg IM X1 ONE Stop: 10/04/24 23:26 Last Admin: 10/05/24 01:06 Dose: 2 mg Documented By: KG Sodium Chloride (Ns) 1,000 mls @ 999 mls/hr IV .Q1H1M ONE Stop: 10/04/24 15:09 Last Infusion: 10/04/24 23:54 Dose: Infused Documented By: Admin: 10/04/24 18:10 Dose: 999 mls/hr Documented By: OSMAN Piperacillin/Tazobactam/Dextrose (Zosyn) 3.375 gm in 50 mls @ 100 mls/hr IV X1 ONE Stop: 10/04/24 22:41 Last Infusion: 10/04/24 23:54 Dose: Infused Documented By: Admin: 10/04/24 23:24 Dose: 100 mls/hr Documented By: KG Sodium Chloride (Ns) 1,000 mls @ 999 mls/hr IV .Q1H1M ONE Stop: 10/05/24 00:10 Last Admin: 10/05/24 00:12 Dose: 999 mls/hr Documented By: KG Ceftriaxone Sodium 2 gm/ (Sodium Chloride) 50 mls @ 100 mls/hr IV X1 ONE Stop: 10/04/24 23:48 Last Infusion: 10/05/24 00:39 Dose: Infused Documented By: Admin: 10/05/24 00:08 Dose: 100 mls/hr Documented By: KG Morphine Sulfate (Morphine Sulf Inj 10 Mg/Ml Vial) 4 mg IVP X1 ONE Stop: 10/04/24 14:09 Last Admin: 10/04/24 15:14 Dose: Not Given Documented By: DB Non-Admin Reason: Cancelled by Provider Morphine Sulfate (Morphine Sulf Inj 10 Mg/Ml Vial) 5 mg IM X1 ONE Stop: 10/04/24 15:07 Last Admin: 10/04/24 15:16 Dose: 5 mg Documented By: DB Ondansetron HCl (Ondansetron Inj 2 Mg/Ml Inj 2 Ml) 4 mg IV X1 ONE; Protocol Stop: 10/04/24 14:09 Last Admin: 10/04/24 18:12 Dose: 4 mg Documented By: OSMAN IV fluids for hydration, morphine, Dilaudid, ceftriaxone IV and Zosyn IV. Patient was also given IV fluids Consultations Consultation(s) initiated? (list below): No Diagnosis Differential Diagnosis ED Complaint MDM: Pyelonephritis chronic, vomiting, staghorn calculi drug-seeking behavior Most likely diagnosis given after review of the tests above:: Chronic pyelonephritis, vomiting, staghorn calculi bilateral Admission Indicated Admission indicated?: not indicated Explain why admission is indicated or not indicated:: Stable Admission Request Was there a request for admission?: No Disposition Plan Disposition Plan: Discharge Discharge Attestation Discharge Attestation: The patient was given an opportunity to ask questions and understood the discharge instructions. Discharge instructions specifically effects, indications for sooner follow up or return to the emergency department, and the expected course of current diagnosis. Patient condition: Stable Medical Decision Making MDM Narrative MDM Narrative: 34-year-old male patient with significant history of spina bifida, wheelchair-bound, came in for evaluation regarding bilateral flank pain HPI ongoing for months, recurrent, patient is scheduled for surgery with Dr. Morelos on October 08, patient cannot tolerate the pain anymore denies fever. Note was seen here 3 days ago diagnosed with pyelonephritis and discharged home. Denies any fever denies any vomiting. CBC did not show any leukocytosis creatinine was noted to be 1.4, BUN is normal. I did not do a urinalysis since it was done 2 days ago. And showed Proteus mirabilis. Sensitive to ceftriaxone and cefuroxime. CT scan of the abdomen pelvis showed Bilateral chronic-appearing pyelonephritis cystitis pattern Extensive bilateral staghorn calculi Patient received 2 L of IV fluids, IV Zosyn initially, and I added IV ceftriaxone's after results of culture and sensitivity was reviewed by me. Patient was also given multiple doses of Zofran, and IV Dilaudid. I discussed the case with hospitalist, Dr. Boo who told me that patient does not meet criteria for admission, patient can be discharged home on p.o. antibiotic after IV antibiotic and fluids given in the emergency room. Plan of care discussed with the patient who agrees to be discharged home. Differential Diagnosis Differential Diagnosis: Pyelonephritis chronic, vomiting, staghorn calculi drug-seeking behavior Lab Data 10/04/24 15:35 10/04/24 16:23 Labs: Lab Results 10/04/24 10/04/24 10/04/24 Range/Units 15:35 16:23 23:15 WBC 8.2 (3.8-10.6) Thou/mm3 RBC 4.57 (4.50-5.90) Miln/mm3 Hgb 10.1 L (13.5-16.0) g/dL Hct 33.3 L (41.0-53.0) % MCV 73 L (80-100) fL MCH 22.1 L (25.0-35.0) pg MCHC 30.3 L (31.0-37.0) g/dl RDW Std Deviation 50.7 H (35.1-43.9) fL Plt Count 400 (140-440) Thou/mm3 Neut % (Auto) 85 H (37-80) % Lymph % (Auto) 6 L (10-50) % [place] % (Auto) 8 (0-12) % Eos % (Auto) 0 (0-10) % Baso % (Auto) 0 (0-2.5) % Neut # (Auto) 7.0 (1.8-7.7) Thou/mm3 Lymph # (Auto) 0.5 L (1.0-4.8) Thou/mm3 [place] # (Auto) 0.6 (0.0-0.8) Thou/mm3 Eos # (Auto) 0.0 (0.0-0.5) Thou/mm3 Baso # (Auto) 0.0 (0.0-0.2) Thou/mm3 Immature Gran # (Auto) 0.01 H (0.00-0.00) Thou/mm3 Absolute Nucleated RBC 0.00 (0.00-0.00) Thou/mm3 Immature Gran % 0 (0-0) % Nucleated RBC % 0 (0) /100 WBC Sodium 134 L (136-145) mMol/L Potassium 3.4 (3.4-5.1) mMol/L Chloride 101 (98-107) mMol/L Carbon Dioxide 19.4 L (20.0-31.0) mMol/L Anion Gap 14 (7-16) BUN 22 (9-23) mg/dL Creatinine 1.4 H (0.6-1.3) mg/dL Estim Creat Clear Calc 52.6 L (>60) mL/min eGFR > 60 (60 - ) See Note BUN/Creatinine Ratio 16 (12-20) Ratio Glucose 92 (74-106) mg/dL Calculated Osmolality 271 L (275-295) Lactic Acid 1.0 0.9 (0.4-2.0) mMol/L Calcium 9.0 (8.3-10.6) mg/dL Corrected Calcium 9.0 (8.5-10.1) mg/dL Total Bilirubin 0.7 (0.3-1.2) mg/dL AST < 10 (0-34) U/L ALT < 7 L (10-49) U/L Alkaline Phosphatase 112 (46-116) U/L Total Protein 7.4 (5.7-8.2) gm/dL Albumin 4.2 (3.5-5.0) gm/dL Globulin 3.2 (2.3-3.5) gm/dL Albumin/Globulin Ratio 1.3 (1.2-2.2) Procalcitonin 0.12 0.12 (0.0-0.49) ng/ml Discharge Plan Plan Patient Disposition: HOME (Self Care) Disposition Comment: Stable Prescriptions/Referrals Prescriptions/Med Rec: New cefuroxime axetil 500 mg tablet 500 mg PO BID 10 Days Qty: 20 0RF No Action clonidine HCl 0.1 mg tablet 0.1 mg PO DAILY amlodipine 10 mg tablet 10 mg PO DAILY Patient Comments: TAKE 1 TABLET BY MOUTH EVERY DAY hydromorphone 2 mg tablet 2 mg PO TID PRN (Reason: Pain) Patient Comments: TAKE 1 TABLET BY MOUTH THREE TIMES A DAY NEEDED Rx Instructions: kidney pain hydromorphone 2 mg tablet 2 mg PO Q8H MDD 3 tabs PRN (Reason: pain) Qty: 9 0RF ferrous sulfate 325 mg (65 mg iron) tablet 325 mg PO Q OTHER DAY Qty: 15 0RF Referrals: Vandana Sears MEAT STOCK CLERK [Primary Care Provider] - In 1 week Problem List Clinical Impression: Staghorn renal calculus, Chronic UTI (urinary tract infection), Pyelonephritis Patient/Caregiver Discharge Instructions Education Materials: Kidney Infec Dc Additional Instructions: Thank you for the opportunity for serving you today. You are stable for discharged . You are advised to: Follow-up with your PCP in 1 to 2 days Return to ED for worsening of symptoms Increase oral fluids Take medication as prescribed Print Language: Upper Sorbian Stand Alone Forms: Leyla Award Info., Patient Portal Info Letter ARPIT/GREY Supervising Physician ARPIT/GREY Supervising Physician: MD Sebas
[2024-10-04 17:19] LABS: Alanine Aminotransferase < 7 U/L (10-49); Albumin, Serum 4.2 gm/dL (3.5-5.0); Albumin/Globulin Ratio 1.3 (1.2-2.2); Alkaline Phosphatase 112 U/L (46-116); Anion Gap 14 (7-16); Aspartate Amino Transferase < 10 U/L (0-34); BUN/Creatinine Ratio 16 Ratio (12-20); Bilirubin,Total 0.7 mg/dL (0.3-1.2); Blood Urea Nitrogen 22 mg/dL (9-23); Carbon Dioxide 19.4 mMol/L (20.0-31.0); Chloride 101 mMol/L (98-107); Creatinine (Component) 1.4 mg/dL (0.6-1.3); Estimated Creatinine Clearance 52.6 mL/min (>60); Globulin 3.2 gm/dL (2.3-3.5); Glucose 92 mg/dL (74-106); Osmolality,Calculated 271 (275-295); Potassium 3.4 mMol/L (3.4-5.1); Procalcitonin 0.12 ng/ml (0.0-0.49); Sodium 134 mMol/L (136-145); Total Protein 7.4 gm/dL (5.7-8.2); eGFR > 60 See Note
--- NOTE | 2024-10-04 17:51 | PC.NURSE ---
Patient states pain 10/10. informed ER provider and received verbal order for 1 mg hydromorphone IV
[2024-10-04] MEDS: SODIUM CHLORIDE 0.9% 1000 ML 1,000 ML 999 ML IV (18:10)
[2024-10-04] MEDS: HYDROmorphone INJ 2 MG/ML VIAL 1 MG IVP ×2 (18:12→22:58)
[2024-10-04] MEDS: ONDANSETRON INJ 2 MG/ML INJ 2 ML 4 MG IV (18:12)
[2024-10-04 18:26] VITALS: BP 187/120; PULSE 106; RESP 20; TEMP 36.8; O2SAT 99
[2024-10-04] MEDS: PIPER/TAZO 3.375 GM PREMIX 3.375 GM/50 ML BAG IV (23:24)
[2024-10-04 23:39] LABS: Lactate (Lactic Acid) 0.9 mMol/L (0.4-2.0)
[2024-10-05] MEDS: cefTRIAXone 2 GM in SODIUM CHLORIDE 0.9% (Popper) 50 ML IV (00:08)
[2024-10-05] MEDS: SODIUM CHLORIDE 0.9% 1000 ML 1,000 ML 999 ML IV (00:12)
[2024-10-05 00:13] LABS: Procalcitonin 0.12 ng/ml (0.0-0.49)
[2024-10-05] MEDS: HYDROmorphone INJ 2 MG/ML VIAL IM (01:06)
[2024-10-05 01:11] VITALS: BP 150/78; PULSE 107; RESP 20; O2SAT 98
== END 2024-10-05 01:16 | disposition home or self-care (01) ==
PROVIDERS: Nurse Practitioner Family; Registered Nurse General Practice; Emergency Provider Emergency Medicine; PCP Nurse Practitioner Family
DX: N12 Tubulo-interstitial nephritis, not specified as acute or chronic (principal); N20.0 Calculus of kidney; Q05.9 Spina bifida, unspecified; Z99.3 Dependence on wheelchair
CPT/HCPCS: 36415; 74176; 80053; 83605; 84145; 85025; 87040; 96361; 96365; 96367; 96372; 96375; 96376; 99284; J0696; J2270; J2405; J2543; J3490; J7030; J7050

== ENCOUNTER → 2024-10-08 | Outpatient (BNVA) | payer MEDICAID, SELFPAY | END | disposition home or self-care (01) | PROVIDERS: PCP Nurse Practitioner Family; Referring Provider Nurse Practitioner Family; Visit Provider Urology | DX: N39.0 Urinary tract infection, site not specified (principal); N20.0 Calculus of kidney; Q05.9 Spina bifida, unspecified; Z99.3 Dependence on wheelchair; I10 Essential (primary) hypertension; D64.9 Anemia, unspecified; F17.210 Nicotine dependence, cigarettes, uncomplicated | CPT/HCPCS: 99212; G0463 ==

== ENCOUNTER 2024-11-22 01:17 | Inpatient (IN) | payer MEDICAID, SELFPAY ==
[2024-11-22] VITALS (23 sets, daily range): BP systolic 140–184; BP diastolic 82–130; PULSE 18–112; RESP 16–100; TEMP 36.5–36.9; O2SAT 97–100; BMI 24.1
--- NOTE | 2024-11-22 01:57 | PD.EDRME ---
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 Chief Complaint: Abdominal Pain Vital signs: Vital Signs Temperature 97.9 F 11/22/24 01:31 Pulse Rate 112 H 11/22/24 01:31 Respiratory Rate 19 11/22/24 01:31 Blood Pressure 184/123 H 11/22/24 01:31 Pulse Oximetry (%) 98 11/22/24 01:31 Oxygen Delivery Method Room Air 11/22/24 01:31
[2024-11-22 02:28] LABS: Lactate (Lactic Acid) 0.8 mMol/L (0.4-2.0)
[2024-11-22 02:33] LABS: Basophils % (Auto) 0 % (0-2.5); Eosinophils # (Auto) 0.1 Thou/mm3 (0.0-0.5); Eosinophils % (Auto) 1 % (0-10); Hematocrit 24.1 % (41.0-53.0); Immature Granulocytes % (Auto) 0 % (0-0); Immature Granulocytes Auto 0.02 Thou/mm3 (0.00-0.00); Lymphocytes # (Auto) 0.5 Thou/mm3 (1.0-4.8); Lymphocytes % (Auto) 7 % (10-50); Mean Corpuscular HGB Conc 29.5 g/dl (31.0-37.0); Mean Corpuscular Hemoglobin 21.2 pg (25.0-35.0); Mean Corpuscular Volume 72 fL (80-100); Monocytes # (Auto) 0.6 Thou/mm3 (0.0-0.8); Monocytes % (Auto) 8 % (0-12); Neutrophils # (Auto) 6.9 Thou/mm3 (1.8-7.7); Neutrophils % (Auto) 84 % (37-80); Nucleated Red Blood Cell % 0 /100 WBC (0); Platelet Count 311 Thou/mm3 (140-440); RDW Standard Deviation 48.8 fL (35.1-43.9); Red Blood Count 3.35 Miln/mm3 (4.50-5.90); White Blood Count 8.2 Thou/mm3 (3.8-10.6)
[2024-11-22] MEDS: MORPHINE SULF INJ 10 MG/ML VIAL 5 MG IM (02:39)
[2024-11-22 02:44] LABS: Hemoglobin 7.1 g/dL (13.5-16.0)
[2024-11-22 02:46] LABS: Collection Type, Urine Clean Catch
[2024-11-22 02:56] LABS: Procalcitonin 0.14 ng/ml (0.0-0.49)
[2024-11-22 02:59] LABS: Bacteria,Urine 2+; Bilirubin,Urine Negative (Negative); Blood,Urine 2+ (Negative); Glucose, Urine Negative (Negative); Ketones,Urine Negative (Negative); Leukocyte Esterase,Urine Positive (Negative); Nitrite,Urine Negative (Negative); Protein,Urine 3+ (Neg - Trace); RBC,Urine 325 /hpf (0-3); Specific Gravity,Urine 1.013 (1.001-1.035); Squamous Epithelial Cell,Urine 4 /hpf (0-5); Urobilinogen,Urine Negative mg/dL (0.0-1.0); WBC,Urine 290 /hpf (0-5)
[2024-11-22 03:00] LABS: Alanine Aminotransferase < 7 U/L (10-49); Albumin, Serum 4.2 gm/dL (3.5-5.0); Albumin/Globulin Ratio 1.6 (1.2-2.2); Alkaline Phosphatase 103 U/L (46-116); Anion Gap 9 (7-16); Aspartate Amino Transferase 13 U/L (0-34); BUN/Creatinine Ratio 15 Ratio (12-20); Bilirubin,Total 0.9 mg/dL (0.3-1.2); Blood Urea Nitrogen 38 mg/dL (9-23); Calcium 8.3 mg/dL (8.3-10.6); Calcium (Corrected) 8.3 mg/dL (8.5-10.1); Chloride 109 mMol/L (98-107); Creatinine (Component) 2.5 mg/dL (0.6-1.3); Globulin 2.6 gm/dL (2.3-3.5); Glucose 114 mg/dL (74-106); Lipase 41 U/L (12-53); Osmolality,Calculated 283 (275-295); Potassium 3.7 mMol/L (3.4-5.1); Sodium 137 mMol/L (136-145); Total Protein 6.8 gm/dL (5.7-8.2); eGFR 34 See Note
[2024-11-22 03:21] LABS: Clarity,Urine Turbid (Clear/Hazy); Color,Urine Yellow (Lt Yel-Yel)
--- NOTE | 2024-11-22 04:24 | XR_ITS ---
Examination: CT abdomen and pelvis without contrast. Coronal 3-D reconstructions. Sagittal 2-D reconstructions. Date and time of exam: November 22, 2024, 0447 hours Comparison October 04, 2024 INDICATIONS: Bilateral flank pain 3 days, history pyelonephritis staghorn calculi on CT abdomen study October 04, 2024 CTDI: vol (mGy): 6.47 DLP: (mGycm): 305 Technique: Axial images of the abdomen have been obtained, 3 mm slice thickness Intravenous contrast material has not been administered. Low dose protocols were performed. One or more of the following dose reduction techniques were used; automated exposure control, adjustment of the mA and/or KV according to patient size, use of iterative reconstruction technique. Findings: No focal liver or splenic lesions No gallstones No pancreatic mass Bilateral extensive staghorn calculi with bilateral ureteral stents in satisfactory position Thickening of the [place] of the pelvicalyceal systems and ureters with minimal perinephric stranding No bowel obstruction Urinary bladder wall shows thickening up to 10 mm Ventricular peritoneal shunt IMPRESSION: Findings most consistent with bilateral pyelonephritis bilateral ureteritis and cystitis, likely vesicoureteral reflux Ureteral stents satisfactory position
[2024-11-22] MEDS: MORPHINE SULF INJ 10 MG/ML VIAL 5 MG IVP ×2 (04:32→06:41)
[2024-11-22] MEDS: cefTRIAXone/D5w 1gm IV premix 1 GM/50 ML BAG IV ×2 (04:33→06:41)
--- NOTE | 2024-11-22 05:20 | PRELIM_ITS ---
CT scan of the abdomen and pelvis without intravenous contrast (axial sections with sagittal and coronal reformats) November 22, 2024 at 0447 hours Clinical History: Bilateral flank pain, chronic stones/UTI Comparison: None available at the time of this report. Findings: The lung bases are clear. The liver, gallbladder, pancreas, spleen, and adrenals are unremarkable on this noncontrast study. Bilateral JJ stents from the renal pelvises to the urinary bladder. Fat stranding along the bilateral ureters. Bilateral ureter wall thickening. Mild bilateral hydroureteronephrosis. Left renal pelvis stone measuring 1.8 cm. Right renal pelvis stone measuring 2.4 cm. No ureteral stones. Nonobstructing right kidney stones. Mild right perinephric fat stranding. No evidence of bowel obstruction. No evidence of appendicitis. There is no mesenteric or retroperitoneal adenopathy. The urinary bladder is unremarkable. There is no free fluid or free air. No acute fractures. Distal tip of the CATTLE TESTER shunt within the peritoneal cavity. Chronic changes of the bilateral sacroiliac joints. Impression: 1. Possible bilateral ureteritis. 2. Bilateral hydroureteronephrosis with JJ stents in place. 3. Bilateral renal pelvis stones. 4. Nonobstructing right nephrolithiasis. 5. Possible right pyelonephritis. 6. Chronic changes of the bilateral sacroiliac joints. Please, correlate clinically. Report Electronically Signed By: Jason Muñoz 11/22/2024 5:19:33 AM [EST]
--- NOTE | 2024-11-22 05:26 | PC.NURSE ---
pt is aware that we want to give him 2 units of blood. Pt signed consent for blood transfusion.
--- NOTE | 2024-11-22 05:54 | EDNOTE_ITS ---
ED Abdominal Pain RME/HPI General Chief Complaint: Abdominal Pain Stated complaint: BILATERAL FLANK PAIN Time seen by provider: 11/22/24 05:53 Arrival date/time: 11/22/24 01:17 Limitations: no limitations RME / HPI RME / HPI narrative: 11/22/24 01:17 34M with extensive PMH including spina bifida (wheelchair-bound), REPOSSESSION AGENT shunt, recurrent UTI/kidney stones (self-cath), and HTN presents to ED with bilateral flank pain and dysuria. DR. VALENTE MAIN ED EVALUATION: 34 year old male with history of spina bifida, REPOSSESSION AGENT shunt, wheelchair bound, hx of staghorn calculi s/p bilateral ureteral stent placements, hypertension, anemia presents to the ED for evaluation of bilateral flank pain accompanied by dysuria today. Reports symptoms today are similar to when he previously had kidney stones. Denies fevers, chills, sweats, or other associated symptoms. Related Data Home Medications ?Medication ?Instructions ?Recorded ?Confirmed amlodipine 10 mg tablet 10 mg PO DAILY 06/06/2409/22 clonidine HCl 0.1 mg tablet 0.1 mg PO DAILY 06/06/24 0 10/08/24 hydromorphone 2 mg tablet 2 mg PO TID PRN Pain 4 10/08/24 Previous Rx's ?Medication ?Instructions ?Recorded ferrous sulfate 325 mg (65 mg 325 mg PO Q OTHER DAY #1 5 tabs 06/16/24 iron) tablet hydromorphone 2 mg tablet 2 mg PO Q8H PRN pain #9 tabs 06/16/24 Allergies Allergy/AdvReac Type Severity Reaction Status Date / Time latex Allergy Severe RASH Verified 10/08/24 11:30 Review of Systems Review of Systems Systems Reviewed: All systems reviewed, normal except as documented Past Medical History Past Medical History NEUROLOGIC: Positive Neurological Disorders, Spina Bifida and Migraine GASTROINTESTINAL: Positive Gastrointestinal Disorders GENITOURINARY: Positive Genitourinary Disorders, Kidney Stones and Neurogenic Bladder MUSCULOSKELETAL: Positive Musculoskeletal Disorders HEMATOLOGIC: Positive Blood Disorders and Anemia PSYCHO/SOCIAL: Positive Anxiety OTHER HISTORY: Positive Hospitalization, Blood Transfusions and Chicken Pox Family History FAMILY HISTORY: Positive Family Surgery Surgical History SURGICAL: Positive Brain Shunt Social History SMOKING STATUS: Never smoker SECOND HAND EXPOSURE: No SUBSTANCE USE: marijuana ED Exam General Limitations: Present no limitations General appearance: Present alert, in no apparent distress and other (Wheelchair-bound, short statured ) Head Head exam: Present atraumatic, normocephalic and normal inspection Eye Eye exam: Present normal appearance, PERRL and EOMI ENT ENT exam: Present normal exam, normal oropharynx and mucous membranes moist Neck Neck exam: Present normal inspection, full ROM and trachea midline Chest Chest inspection: Present normal inspection and symmetric chest wall rise Respiratory Respiratory exam: Present normal lung sounds bilaterally Cardiovascular Cardiovascular exam: Present regular rate, normal rhythm and normal heart sounds Abdominal Exam Abdominal exam: Present soft and normal bowel sounds Extremities Exam Extremities exam: Present normal inspection Back Exam Back exam: Present normal inspection Neurological Exam Neurological exam: Present alert, oriented X3 and CN II-XII intact Psychiatric Psychiatric exam: Present normal affect and normal mood Skin Skin exam: Present warm, dry, intact and normal color Course Quality Measures none Orders Category Date Time Status Admit to Inpatient Status Routine Admission 11/22/24 07:56 Active Patient Condition Routine Admission 11/22/24 07:56 Ordered COVID-19 Screening Questionnaire NOW Care 11/22/24 07:44 Active Decision to Admit X1 Care 11/22/24 07:43 Completed Insert IV NOW Care 11/22/24 04:15 Active Notify provider NEEDED Care 11/22/24 07:56 Active Occult Blood,Stool (Nursing) NOW Care 11/22/24 08:00 Active Sequential Compression Device QSHIFT Care 11/22/24 07:56 Active Consult to Urology Stat Cons 11/22/24 07:43 Active Diet Cardiac Diet 11/22/[address] abdomen pelvis wo con Stat Exams 11/22/24 04:24 Completed Basic Metabolic Panel AM DRAW Lab 11/23/24 05:00 Ordered Basic Metabolic Panel AM DRAW Lab 11/24/24 05:00 Ordered Basic Metabolic Panel AM DRAW Lab 11/25/24 05:00 Ordered CBC AM DRAW Lab 11/23/24 05:00 Ordered CBC AM DRAW Lab 11/24/24 05:00 Ordered CBC AM DRAW Lab 11/25/24 05:00 Ordered CBC Stat Lab 11/22/24 02:22 Completed CMP [Comprehensive Metabolic Panel] Stat Lab 11/22/24 02:22 Completed Lactate (Lactic Acid) Stat Lab 11/22/24 02:22 Completed Lipase Stat Lab 11/22/24 02:22 Completed Magnesium AM DRAW Lab 11/23/24 05:00 Ordered Magnesium AM DRAW Lab 11/24/24 05:00 Ordered Magnesium AM DRAW Lab 11/25/24 05:00 Ordered Phosphorous AM DRAW Lab 11/23/24 05:00 Ordered Phosphorous AM DRAW Lab 11/24/24 05:00 Ordered Phosphorous AM DRAW Lab 11/25/24 05:00 Ordered Procalcitonin Stat Lab 11/22/24 02:22 Completed Type and Screen Stat Lab 11/22/24 04:35 Results UA [Urinalysis] Stat Lab 11/22/24 02:34 Completed Urine Culture Stat Lab 11/22/24 02:34 Received prbc [Red Blood Cells] Stat Lab 11/22/24 04:35 Results Acetaminophen Tab [Tylenol Tab] Med 11/22/24 07:56 Active 650 mg PO Q6H PRN Albuterol/Ipratr Rt Rachael [Duoneb Rt Rachael] Med 11/22/24 07:56 Active 3 ml INH Q4HR PRN HYDROcodone*/APAP 5/325 [[place] 5/325] Med 11/22/24 07:56 Active 1 tab PO Q4HR PRN Morphine Inj Med 11/22/24 07:56 Active 2 mg IVP Q4HR PRN Morphine Inj Med 11/22/24 02:00 Discontinued 5 mg IM X1 ONE Morphine Inj Med 11/22/24 04:15 Discontinued 5 mg IVP X1 ONE Morphine Inj Med 11/22/24 06:31 Discontinued 5 mg IVP X1 ONE Ondansetron Inj [Zofran Inj] Med 11/22/24 07:56 Active 4 mg IV Q6H PRN Piper/Tazo Inj [Zosyn Inj] 2.25 gm Med 11/22/24 08:05 Ordered Sodium Chloride 0.9% (Pop) [NS 0.9% mini bag] 100 ml IV Q6HR Senna [Senokot] Med 11/22/24 09:00 Active 1 tab PO QDAY Sodium Chloride 0.9% 500 ml [Ns] 500 ml Med 11/22/24 07:56 Active IV 999 mls/hr amLODIPine BESYLATE [Norvasc] Med 11/22/24 09:00 Ordered 10 mg PO QDAY cefTRIAXone/D5w 1gm IV premix [Rocephin/D5w 1gm IV Med 11/22/24 04:24 Discontinued premix] 1 gm in 50 ml IV X1 cefTRIAXone/D5w 1gm IV premix [Rocephin/D5w 1gm IV Med 11/22/24 06:32 Discontinued premix] 1 gm in 50 ml IV X1 cloNIDine HCL [Catapres] Med 11/22/24 09:00 Ordered 0.1 mg PO DAILY Code Status Routine Oth 11/22/24 07:56 Ordered Oxygen Delivery PRN RT 11/22/24 07:56 Active Vital Signs Vital signs: Vital Signs Temperature 97.9 F 11/22/24 01:31 Pulse Rate 112 H 11/22/24 01:31 Respiratory Rate 19 11/22/24 01:31 Blood Pressure 184/123 H 11/22/24 01:31 Pulse Oximetry (%) 98 11/22/24 01:31 Oxygen Delivery Method Room Air 11/22/24 01:31 Pulse ox is 98% on room air which is adequate. Abdominal Pain MDM MDM Narrative MDM Narrative:: Chelo Valiente am scribing for and in the presence of Dr. Valente. Patient data External records reviewed:: [facility] previous records (I reviewed ED visit on 10/04/2024 for similar flank pain) Clinical information provided by:: patient Social determinants that could affect healthcare access:: none Patient has the following chronic illnesses:: recurrent UTIs, spina bifida, REPOSSESSION AGENT shunt, staghorn calculi s/p bilateral ureteral stent placement, hypertension, anemia How is presenting disease/condition affected by chronic disease/condition?: exacerbated by Evaluation data The following diagnostics were reviewed and interpreted by me:: lab results and radiology exam(s) Lab and/or radiology exams considered but not ordered:: None Interpretation Summary: Ordering Physician: Date of Service: Procedure(s): Accession Number(s): cc: ~ CT scan of the abdomen and pelvis without intravenous contrast (axial sections with sagittal and coronal reformats) November 22, 2024 at 0447 hours Clinical History: Bilateral flank pain, chronic stones/UTI Comparison: None available at the time of this report. Findings: The lung bases are clear. The liver, gallbladder, pancreas, spleen, and adrenals are unremarkable on this noncontrast study. Bilateral JJ stents from the renal pelvises to the urinary bladder. Fat stranding along the bilateral ureters. Bilateral ureter wall thickening. Mild bilateral hydroureteronephrosis. Left renal pelvis stone measuring 1.8 cm. Right renal pelvis stone measuring 2.4 cm. No ureteral stones. Nonobstructing right kidney stones. Mild right perinephric fat stranding. No evidence of bowel obstruction. No evidence of appendicitis. There is no mesenteric or retroperitoneal adenopathy. The urinary bladder is unremarkable. There is no free fluid or free air. No acute fractures. Distal tip of the REPOSSESSION AGENT shunt within the peritoneal cavity. Chronic changes of the bilateral sacroiliac joints. Impression: 1. Possible bilateral ureteritis. 2. Bilateral hydroureteronephrosis with JJ stents in place. 3. Bilateral renal pelvis stones. 4. Nonobstructing right nephrolithiasis. 5. Possible right pyelonephritis. 6. Chronic changes of the bilateral sacroiliac joints. Please, correlate clinically. Report Electronically Signed By: Jason Muñoz 11/22/2024 5:19:33 AM [EST] Medications / Prescriptions Medications or Prescriptions considered but not ordered:: None Medication administrations:: Medication Administration History Acetaminophen (Acetaminophen 325 Mg Tablet) 650 mg PO Q6H PRN PRN Reason: Fever >100 or pain (1-3) Stop: 12/22/24 07:55 Hydrocodone Bitart/Acetaminophen (Hydrocodone/Apap 5/325 Tablet) 1 tab PO Q4HR PRN PRN Reason: PAIN SCALE 4-10(Mod-Sev Stop: 11/27/24 07:55 Albuterol/Ipratropium (Albuterol/Ipratropium (Duoneb) Rt Rachael 3 Ml Nebu) 3 ml INH Q4HR PRN PRN Reason: SHORTNESS OF BREATH OR WHEEZE Stop: 12/22/24 07:55 Amlodipine Besylate (Amlodipine Besylate 5 Mg Tablet) 10 mg PO QDAY [facility] Stop: 12/22/24 08:59 Clonidine (Clonidine Hcl 0.1 Mg Tablet) 0.1 mg PO DAILY ARACELY Stop: 12/22/24 08:59 Sodium Chloride (Ns) 500 mls @ 999 mls/hr IV .Q31M ONE Stop: 11/22/24 08:26 Piperacillin Sod/Tazobactam (Sod 2.25 gm/ Sodium Chloride) 100 mls @ 200 mls/hr IV Q6HR ARACELY Stop: 11/29/24 08:04 Morphine Sulfate (Morphine Sulf Inj 10 Mg/Ml Vial) 2 mg IVP Q4HR PRN PRN Reason: BREAKTHROUGH PAIN Stop: 11/27/24 07:55 Ondansetron HCl (Ondansetron Inj 2 Mg/Ml Inj 2 Ml) 4 mg IV Q6H PRN; Protocol PRN Reason: NAUSEA OR VOMITING Stop: 12/22/24 07:55 Sennosides (Senna Tablet) 1 tab PO QDAY ARACELY; Protocol Stop: 12/22/24 08:59 Discontinued Medications Ceftriaxone Sodium/Dextrose (Rocephin/D5w 1gm Iv Premix) 1 gm in 50 mls @ 100 mls/hr IV X1 ONE Stop: 11/22/24 04:53 Last Infusion: 11/22/24 05:12 Dose: Infused Documented By: Admin: 11/22/24 04:33 Dose: 100 mls/hr Documented By: MARYJANE Ceftriaxone Sodium/Dextrose (Rocephin/D5w 1gm Iv Premix) 1 gm in 50 mls @ 100 mls/hr IV X1 ONE Stop: 11/22/24 07:01 Last Infusion: 11/22/24 07:11 Dose: Infused Documented By: Admin: 11/22/24 06:41 Dose: 100 mls/hr Documented By: MARYJANE Morphine Sulfate (Morphine Sulf Inj 10 Mg/Ml Vial) 5 mg IM X1 ONE Stop: 11/22/24 02:01 Last Admin: 11/22/24 02:39 Dose: 5 mg Documented By: MARYJANE Morphine Sulfate (Morphine Sulf Inj 10 Mg/Ml Vial) 5 mg IVP X1 ONE Stop: 11/22/24 04:16 Last Admin: 11/22/24 04:32 Dose: 5 mg Documented By: MARYJANE Morphine Sulfate (Morphine Sulf Inj 10 Mg/Ml Vial) 5 mg IVP X1 ONE Stop: 11/22/24 06:32 Last Admin: 11/22/24 06:41 Dose: 5 mg Documented By: MARYJANE See above Consultations Consultation(s) initiated? (list below): Yes Consultation #1 (Physician, Specialty, Details): I spoke with urologist Dr. Morelos. Discussed patients PMHx, HPI, ED course, exam findings, labs, and radiology results. He agrees to consult. Time: 07:29 Consultation #2 (Physician, Specialty, Details): I spoke with resident working with hospitalist Dr. Frost. Discussed patients PMHx, HPI, ED course, exam findings, labs, and radiology results. The hospitalist will come evaluate the patient in the ED. Diagnosis Differential diagnosis abdominal pain: abdominal pain, calculus of kidney, constipation and other (pyelonephritis ) Most likely diagnosis given after review of the tests above:: Pyelonephritis Admission Indicated Admission indicated?: indicated Admission Request Was there a request for admission?: Yes Admission Attestation Admission request attestation: Discussed case with [] from Hospitalist service regarding admission. Discussed patients ED course, exam findings, labs, and radiology results. The Hospitalist [agrees,declines] to accept the patient for admission. Disposition Plan Disposition Plan: Admit Discharge Plan Plan Patient Disposition: Admit Acute Care w/in Hospital Prescriptions/Referrals Prescriptions/Med Rec: No Action clonidine HCl 0.1 mg tablet 0.1 mg PO DAILY amlodipine 10 mg tablet 10 mg PO DAILY Patient Comments: TAKE 1 TABLET BY MOUTH EVERY DAY hydromorphone 2 mg tablet 2 mg PO TID PRN (Reason: Pain) Patient Comments: TAKE 1 TABLET BY MOUTH THREE TIMES A DAY NEEDED Rx Instructions: kidney pain hydromorphone 2 mg tablet 2 mg PO Q8H MDD 3 tabs PRN (Reason: pain) Qty: 9 0RF ferrous sulfate 325 mg (65 mg iron) tablet 325 mg PO Q OTHER DAY Qty: 15 0RF Referrals: Vandana Sears, ADMINISTRATION SPECIALIST [Primary Care Provider] - In 1 week Problem List Clinical Impression: Pyelonephritis, Staghorn calculus Patient/Caregiver Discharge Instructions Print Language: [place] Stand Alone Forms: Leyla Award Info., Patient Portal Info Letter
--- NOTE | 2024-11-22 06:29 | PC.NURSE ---
pt resting quietly. is requesting pain meds. MD will be notified.
--- NOTE | 2024-11-22 08:07 | ESHP_ITS ---
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 Patient stated that his bilateral flank pain started 3 days ago. Described as stabbing, 8/10 in severity, no radiation and no relief with ibuprofen. It was associated with dysuria. Patient says that her symptoms acutely worsened this morning which prompted his presentation to the emergency room. Denies any fever, chills, vomiting, diarrhea, sick contacts. Upon review patient also denies any chest pain/pressure, palpitations, SOB, orthopnea, sick contacts and recent travel. Of note patient's was hospitalized May, for a similar complaint. During his hospitalization he had laser fragmentation of bladder calculus, left ureteroscopy laser stone fragmentation with stone basket removal and bilateral ureteral stent replacement. He follows up in outpatient urology clinic with Dr. Morelos. In the ED patient was receiving a PRBC transfusion when he began to experience dizziness and 1 episode of vomiting. There were no signs of angioedema, respiratory distress, hypotension, hives or any other physical signs. The rate of the blood transfusion was decreased by half and Benadryl 25 Mg IV x 1 was given. ED course: BP 173/130, pulse 112, RR 19, temp 97.9 F, SpO2 98% on room air Labs significant for Hb 7.1, WBC 8.2, PLT 311, CL 109, bicarb 19, BUN 38, CR 2.5, corrected Ca 8.3. Urinalysis was turbid, pH 8, 3+ protein, 2+ blood, leukocyte esterase positive and [address] abdomen/pelvis significant for bilateral extensive staghorn calculi with bilateral ureteral stents. Thickening of the ogden of the pelvicalyceal system with minimal perinephric stranding. Findings most consistent with bilateral pyelonephritis, bilateral ureteritis and cystitis. In the ED patient received morphine 5 Mg IM x 1, morphine 5 Mg IV x 2, ceftriaxone 1 g IV x 1, and PRBC x 2 units. Patient will be admitted for treatment and management of bilateral pyelonephritis secondary to infected ureteral stents. Urology, Dr. Morelos consulted and closely following the case. Review of Systems Review of Systems Narrative Review of Systems: GENERAL: Denies fever/chills or diaphoresis. HEENT: Denies headaches or visual changes. Denies discharge. Neuro: Denies unusual weakness or difficulty speaking. CARDIO: Denies chest pain or palpitations. PULM: Denies SOB, coughing or wheezing. GI: Denies abdominal pain, N/V/C/D. Reports having BMs. URO: As above MSK/EXT/SKIN: Denies joint/skeletal/muscle pain, issues/changes in upper or lower extremities, itchiness, or superficial pain. PSYCH: Cooperative, pleasant mood & affect. The rest of the review of systems is otherwise negative. Past Medical History Past Medical History Comments PMH COMMENT: Past medical history: ? Recurrent UTIs ? Spina bifida ? 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 Bilateral staghorn calculi status post placement of bilateral ureteral stents ? Primary hypertension ? Chronic anemia Medication list: [Awaiting reconciliation] ? Ferrous sulfate 325 mg p.o. q. OD ? Amlodipine 10 Mg p.o. daily ? Clonidine 0.1 Mg p.o. 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 Multiple urologic procedures including bilateral ureteral stent placement, laser stone fragmentation and laser bladder stone fragmentation at [facility] by Dr. Morelos Allergies: Latex?rash Social history: Occupational History: Unemployed Education Level: Graduated high school Marital Status: Single. Has a girlfriend Tobacco use: Denies ETHO use: Denies Illicit drug use: Daily marijuana use since age 18 Social History Note: Lives alone, but his girlfriend visits and assist him with cleaning and cooking. Mobilizes with a wheelchair at baseline Family History: - No significant history Exam Vital Signs Temp Pulse Resp BP Pulse Ox O2 Del Method 97.8 F 18 L 18 173/130 H 100 Room Air 11/22/24 06:00 11/22/24 06:00 11/22/24 06:00 11/22/24 06:00 11/22/24 06:00 11/22/24 05:04 Narrative Exam Constitutional Alert, oriented x 3 and comfortable HEENT Vision grossly intact. Patent nares. Trachea midline Respiratory Chest normal on inspection and clear auscultation bilaterally Cardiovascular S1 and S2 audible, RRR. No murmurs carotid bruit. No gross JVD. Abdominal Soft and non tender to palpation in all quadrants. BS + Genitourinary No bladder tenderness, bilateral renal angle tenderness Musculoskeletal Extremities tone within normal limits. No LE edema. Neurological CN II - XII grossly intact. Extremity motor and sensation grossly intact. Skin Warm, dry and intact. No apparent lesions. Psychiatric Patient has good affect, is cooperative Results: Labs 11/23/24 05:40 11/23/24 05:40 Labs: Short CBC 11/22/24 Range/Units 02:22 WBC 8.2 (3.8-10.6) Thou/mm3 Hgb 7.1 L (13.5-16.0) g/dL Hct 24.1 L (41.0-53.0) % Plt Count 311 (140-440) Thou/mm3 BMP 11/22/24 02:22 Sodium 137 Potassium 3.7 Chloride 109 H Carbon Dioxide 19.0 L BUN 38 H Creatinine 2.5 H Glucose 114 H Calcium 8.3 Liver Function 11/22/24 Range/Units 02:22 Total Bilirubin 0.9 (0.3-1.2) mg/dL AST 13 (0-34) U/L ALT < 7 L (10-49) U/L Alkaline Phosphatase 103 (46-116) U/L Albumin 4.2 (3.5-5.0) gm/dL Urine 11/22/24 Range/Units 02:34 Urine Color Yellow (Lt Yel-Yel) Urine Clarity Turbid A (Clear/Hazy) Urine pH 8.0 H (5.0-7.0) Ur Specific [place] 1.013 (1.001-1.035) Urine Protein 3+ A (Neg - Trace) Urine Glucose (UA) Negative (Negative) Quality Measures Quality Measures none Medications Home Medications and Allergies Home Medications ?Medication ?Instructions ?Recorded ?Confirmed ?Type amlodipine 10 mg tablet 10 mg PO DAILY 06/06/24 05/08/18 History clonidine HCl 0.1 mg tablet 0.1 mg PO DAILY 06/06/24 0 11/22/24 History hydromorphone 2 mg tablet 2 mg PO TID PRN Pain 4 11/22/24 History Allergies Allergy/AdvReac Type Severity Reaction Status Date / Time latex Allergy Severe RASH Verified 10/08/24 11:30 Visit Medications Acetaminophen (Acetaminophen 325 Mg Tablet) 650 mg PO Q6H PRN PRN Reason: Fever >100 or pain (1-3) Stop: 12/22/24 07:55 Hydrocodone Bitart/Acetaminophen (Hydrocodone/Apap 5/325 Tablet) 1 tab PO Q4HR PRN PRN Reason: PAIN SCALE 4-10(Mod-Sev Stop: 11/27/24 07:55 Albuterol/Ipratropium (Albuterol/Ipratropium (Duoneb) Rt Rachael 3 Ml Nebu) 3 ml INH Q4HR PRN PRN Reason: SHORTNESS OF BREATH OR WHEEZE Stop: 12/22/24 07:55 Sodium Chloride (Ns) 500 mls @ 999 mls/hr IV .Q31M ONE Stop: 11/22/24 08:26 Piperacillin Sod/Tazobactam (Sod 2.25 gm/ Sodium Chloride) 100 mls @ 200 mls/hr IV Q6HR ARACELY Stop: 11/29/24 08:04 Morphine Sulfate (Morphine Sulf Inj 10 Mg/Ml Vial) 2 mg IVP Q4HR PRN PRN Reason: BREAKTHROUGH PAIN Stop: 11/27/24 07:55 Ondansetron HCl (Ondansetron Inj 2 Mg/Ml Inj 2 Ml) 4 mg IV Q6H PRN; Protocol PRN Reason: NAUSEA OR VOMITING Stop: 12/22/24 07:55 Sennosides (Senna Tablet) 1 tab PO QDAY ARACELY; Protocol Stop: 12/22/24 08:59 Discontinued Medications Ceftriaxone Sodium/Dextrose (Rocephin/D5w 1gm Iv Premix) 1 gm in 50 mls @ 100 mls/hr IV X1 ONE Stop: 11/22/24 04:53 Last Infusion: 11/22/24 05:12 Dose: Infused Ceftriaxone Sodium/Dextrose (Rocephin/D5w 1gm Iv Premix) 1 gm in 50 mls @ 100 mls/hr IV X1 ONE Stop: 11/22/24 07:01 Last Infusion: 11/22/24 07:11 Dose: Infused Morphine Sulfate (Morphine Sulf Inj 10 Mg/Ml Vial) 5 mg IM X1 ONE Stop: 11/22/24 02:01 Last Admin: 11/22/24 02:39 Dose: 5 mg Morphine Sulfate (Morphine Sulf Inj 10 Mg/Ml Vial) 5 mg IVP X1 ONE Stop: 11/22/24 04:16 Last Admin: 11/22/24 04:32 Dose: 5 mg Morphine Sulfate (Morphine Sulf Inj 10 Mg/Ml Vial) 5 mg IVP X1 ONE Stop: 11/22/24 06:32 Last Admin: 11/22/24 06:41 Dose: 5 mg Assessment & Plan Plan Pierce Dixon is a 34-year-old male with a past medical history of spina bifida (wheelchair-bound), [employer]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 Patient will be admitted for treatment and management of bilateral pyelonephritis secondary to infected ureteral stents. Urology, Dr. Morelos consulted and closely following the case. Acute blood loss anemia for investigation Possible upper GI bleed Unspecified transfusion reaction Patient's was taking ibuprofen for the past 3 days for his bilateral flank pain. Baseline Hb between 8.6?10. On admission Hb 7.1 During PRBC infusion patient developed mild allergic, non-anaphylactic reaction. Rate of infusion was halved and Benadryl 25 Mg IV x 1. Plan: ? Clear liquid diet ? FOBT ordered ? Protonix 40 Mg IV twice daily ? GI, Dr. Nava consulted. Appreciate recommendations Bilateral pyelonephritis secondary to indwelling bilateral ureteral stents History of bilateral staghorn calculi History of recurrent UTIs Patient presented with 3-day history of bilateral flank pain and dysuria On exam has bilateral flank tenderness Patient's had bilateral ureteral stent placement May 2024 and was following up with urology. CT abdomen/pelvis significant for bilateral extensive staghorn calculi with bilateral ureteral stents. Thickening of the [place] of the pelvicalyceal system with minimal perinephric stranding. Findings most consistent with bilateral pyelonephritis, bilateral ureteritis and cystitis. Plan: ? Awaiting blood and urine cultures ? Zosyn 3.375 g IV Q8 hourly started on [11/22? ? For bilateral ureteral stent replacement ? Urology, Dr. Morelos consulted and closely following the case. Appreciate recommendations Acute kidney injury likely postrenal On admission patient's CR 2.5. Baseline CR 1.4?1.6 Most likely obstructive due to infected stents. Plan: ? Gentle IV hydration with 1 L normal saline over 24 hours ? Patient to be scheduled for stent replacements by urology Primary hypertension On admission BP 173/113. Home medication amlodipine 10 Mg p.o. daily and clonidine 0.1 Mg p.o. daily Plan: ? Resumed home medication amlodipine 10 Mg p.o. 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 Continue outpatient follow-up Health maintenance: Disposition: IV antibiotics. Pending GI and urology consults. Diet: Clear liquid Lines: pIVs GI Prophylaxis: Pantoprazole 40 Mg IV twice daily Thrombo Prophylaxis: SCDs Code status: FULL CODE Plan of care discussed with Attending Dr. Santosh Macedo MD PGY 1 Disclaimer: This note was dictated by speech recognition. Minor errors in shuttle inspector may be present due to voice recognition software. Attending Provider Attestation/Addendum I have examined the patient, reviewed labs and imaging findings, discussed the case with the resident(s), and reviewed entered orders. I agree with the plan of care as outlined in this note, with these additional summaries/recommendations: Patient seen at bedside. He is well-known to the hospital service. He presented with urinary symptoms and CT scan of abdomen/pelvis showed findings most consistent with bilateral pyelonephritis, bilateral ureteritis, and ureteral stents. Urology was consulted by emergency room provider and he has agreed to consult on the case with likely stent exchange while hospitalized. Continue IV antibiotics. Follow-up urine and blood cultures. Patient was also noted to have hemoglobin of 7.1 and does have a history of iron deficiency anemia. There is concern for GI bleed at this time given patient had a 3 point drop in hemoglobin in approximately 2 months. 1 unit PRBCs ordered by ER provider and we will order follow-up posttransfusion H&H. There is concern for acute blood loss anemia and we will consult GI while waiting for FOBT. Patient also noted to have acute kidney injury which is most likely prerenal in the setting of severe pyelonephritis and poor oral intake. No hydronephrosis to suggest postrenal obstruction. Continue low-dose maintenance fluids and repeat renal panel in AM. Avoid nephrotoxic agents and renally dose medications. Pain management as needed. Patient updated on the plan and in agreement. All questions answered to satisfaction. Dr. Santosh MD
--- NOTE | 2024-11-22 08:30 | PC.NURSE ---
PT WAS RESTING W/EYES CLOSED UPON ASSUMPTION OF CARE, EVEN RISE AND FALL OF CHEST, DENIES ANY PAIN OR DISCOMFORT. PT STARTED ON BLOOD TRANSFUSION, TOLERATING WELL, CONTINUES TO REST W/EYES CLOSED. BP ELEVATED UPON ASSUMPTION OF CARE AND REMAINS ELEVATED AT THIS TIME. WILL CONTINUE W/POC
[2024-11-22] MEDS: DiphenhydrAMINE INJ 50 MG/ML VIAL 25 MG IV (08:55)
[2024-11-22] MEDS: amLODIPine BESYLATE 5 MG TABLET 10 MG PO (08:55)
[2024-11-22] MEDS: ONDANSETRON INJ 2 MG/ML INJ 2 ML 4 MG IV (08:55)
[2024-11-22] MEDS: cloNIDine HCL 0.1 MG TABLET PO (08:55)
[2024-11-22] MEDS: SENNA TABLET 1 TAB PO (08:56)
--- NOTE | 2024-11-22 09:52 | PC.NURSE ---
ABOUT 0840 WHEN RATE WAS INCREASED FOR BLOOD PT STATED HE WAS DIZZY, THEN BEGAN VOMITING. ADMITTING PROVIDER CONTACTED, PUT IN ORDER FOR BENADRYL AND GAVE VERBAL TO LOWER THE RATE. ONCE RATE WAS LOWERE PT WAS TOLERATING WELL NO REPEAT SYMPTOMS,. PO AND IVP MEDS ADMINISTERED DURING PAUSE, HOWEVER OTHER MEDS NOT GIVEN DUE TO NEED OF SECOND LINE, THIS RN ATTEMPTED MULTIPLE TIMES UNSUCCESSFULLY FELLOW RN WILL ATTEMPT.
[2024-11-22] MEDS: PIPER/TAZO 3.375 GM PREMIX 3.375 GM/50 ML BAG IV ×2 (10:27→23:19)
[2024-11-22] MEDS: SODIUM CHLORIDE 0.9% 500 ML 500 ML 999 ML IV (10:27)
--- NOTE | 2024-11-22 14:51 | PC.NURSE ---
SPOKE W/PHARMACY AT THIS TIME, ZOSYN JUST FINISHED AT 1427 NEXT DOSE DUE AT 1500, HOWEVER IT IS DUE Q8HRS. PHARMACY SAID TO SKIP 1500 DOSE AND GIVE 2200 DOSE.
[2024-11-22] MEDS: SODIUM CHLORIDE 0.9% 1000 ML 1,000 ML 50 ML IV (14:59)
[2024-11-22] MEDS: PANTOPRAZOLE INJ 40 MG VIAL IVP (15:00)
[2024-11-22 17:22] LABS: Hematocrit 32.4 % (41.0-53.0); Hemoglobin 10.2 g/dL (13.5-16.0)
[2024-11-22] MEDS: HYDROMORPHONE HCL 2 MG TABLET PO (17:44)
--- NOTE | 2024-11-22 19:33 | ESCONSULT_ITS ---
HPI Data of Consult Requesting Physician: Jj Macedo MD Primary Care Provider: Vandana Sears NP Consult Narrative Reason for consult: Acute posthemorrhagic anemia H/H 7.1/24.1 History of present illness: 34 years old male who presented with bilateral flank pain to the hospital and has been taking ibuprofen and Advil presenting hemoglobin hematocrit 7.1 and 24.1 with a BUN/creatinine of 38 and 2.5 Patient has been transfused and his posttransfusion hemoglobin hematocrit 10.2 and 32[address] scan of the abdomen pelvis done without contrast showed bilateral pyelonephritis ureteritis cystitis and ureteral stents in good place Patient has a history of spina bifida [employer]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 recurrent UTIs and currently on self-catheterization On the previous admission patient had placement of ureteral stents with stone removal cc:: cc: jJ Macedo MD Review of Systems Review of Systems Systems Reviewed: All systems reviewed, normal except as documented Past Medical History Surgical History OTHER SURGICAL HX: As in the history of present illness Meds Home Medications and Allergies Home Medications ?Medication ?Instructions ?Recorded ?Confirmed ?Type amlodipine 10 mg tablet 10 mg PO DAILY 06/06/24 05/08/18 History clonidine HCl 0.1 mg tablet 0.1 mg PO DAILY 06/06/24 0 11/22/24 History hydromorphone 2 mg tablet 2 mg PO TID PRN Pain 4 11/22/24 History Allergies Allergy/AdvReac Type Severity Reaction Status Date / Time latex Allergy Severe RASH Verified 10/08/24 11:30 Exam Vital Signs Temp Pulse Resp BP Pulse Ox O2 Del Method 97.9 F 104 H 18 140/108 H 100 Room Air 11/22/24 15:15 11/22/24 19:13 11/22/24 15:15 11/22/24 15:15 11/22/24 15:15 11/22/24 14:28 Constitutional Comments: Alert oriented Routine Abdominal Exam Comments: Bilateral flank tenderness and positive bowel sounds Results Labs 11/22/24 17:11 11/22/24 02:22 Labs: Short CBC 11/22/24 11/22/24 Range/Units 02:22 17:11 WBC 8.2 (3.8-10.6) Thou/mm3 Hgb 7.1 L 10.2 L D (13.5-16.0) g/dL Hct 24.1 L 32.4 L (41.0-53.0) % Plt Count 311 (140-440) Thou/mm3 BMP 11/22/24 02:22 Sodium 137 Potassium 3.7 Chloride 109 H Carbon Dioxide 19.0 L BUN 38 H Creatinine 2.5 H Glucose 114 H Calcium 8.3 Liver Function 11/22/24 Range/Units 02:22 Total Bilirubin 0.9 (0.3-1.2) mg/dL AST 13 (0-34) U/L ALT < 7 L (10-49) U/L Alkaline Phosphatase 103 (46-116) U/L Albumin 4.2 (3.5-5.0) gm/dL Urine 11/22/24 Range/Units 02:34 Urine Color Yellow (Lt Yel-Yel) Urine Clarity Turbid A (Clear/Hazy) Urine pH 8.0 H (5.0-7.0) Ur Specific [place] 1.013 (1.001-1.035) Urine Protein 3+ A (Neg - Trace) Urine Glucose (UA) Negative (Negative) Assessment and Plan Additional Assessment & Plan Additional Plan: # Acute posthemorrhagic anemia the patient was used ibuprofen Plan N.p.o. midnight tonight Consent obtained for fiberoptic esophagogastroduodenoscopy with possible biopsy possible therapeutic intervention under intravenous moderate sedation tentatively scheduled for tomorrow IV Protonix Repeat CBC in the morning Will follow the patient Other medical problems include Recurrent UTI Renal stone disease Post renal abnormal renal function test in a patient with bilateral ureteric stent placed Spina bifid with multiple surgeries Thank you very much for the opportunity to participate in care of this patient
[2024-11-22] MEDS: MORPHINE SULF INJ 10 MG/ML VIAL 2 MG IVP ×2 (20:34→23:55)
[2024-11-23] VITALS (21 sets, daily range): BP systolic 138–171; BP diastolic 86–116; PULSE 90–116; RESP 16–98; TEMP 36.5–37.2; O2SAT 95–100; BMI 24.0
[2024-11-23] MEDS: DiphenhydrAMINE INJ 50 MG/ML VIAL 25 MG IV (00:04)
[2024-11-23] MEDS: HYDROMORPHONE HCL 2 MG TABLET PO ×2 (03:55→15:05)
[2024-11-23] MEDS: PIPER/TAZO 3.375 GM PREMIX 3.375 GM/50 ML BAG IV ×3 (05:38→21:46)
[2024-11-23 06:19] LABS: Basophils % (Auto) 0 % (0-2.5); Eosinophils # (Auto) 0.1 Thou/mm3 (0.0-0.5); Eosinophils % (Auto) 1 % (0-10); Hematocrit 30.3 % (41.0-53.0); Hemoglobin 9.5 g/dL (13.5-16.0); Immature Granulocytes % (Auto) 0 % (0-0); Immature Granulocytes Auto 0.02 Thou/mm3 (0.00-0.00); Lymphocytes # (Auto) 0.3 Thou/mm3 (1.0-4.8); Lymphocytes % (Auto) 4 % (10-50); Mean Corpuscular HGB Conc 31.4 g/dl (31.0-37.0); Mean Corpuscular Hemoglobin 23.1 pg (25.0-35.0); Mean Corpuscular Volume 74 fL (80-100); Monocytes # (Auto) 0.7 Thou/mm3 (0.0-0.8); Monocytes % (Auto) 10 % (0-12); Neutrophils # (Auto) 5.7 Thou/mm3 (1.8-7.7); Neutrophils % (Auto) 85 % (37-80); Nucleated Red Blood Cell % 0 /100 WBC (0); Platelet Count 229 Thou/mm3 (140-440); Red Blood Count 4.12 Miln/mm3 (4.50-5.90); White Blood Count 6.8 Thou/mm3 (3.8-10.6)
[2024-11-23 07:12] LABS: Anion Gap 12 (7-16); BUN/Creatinine Ratio 14 Ratio (12-20); Blood Urea Nitrogen 27 mg/dL (9-23); Calcium 8.3 mg/dL (8.3-10.6); Carbon Dioxide 18.7 mMol/L (20.0-31.0); Chloride 108 mMol/L (98-107); Estimated Creatinine Clearance 31.7 mL/min (>60); Glucose 79 mg/dL (74-106); Magnesium 1.9 mg/dL (1.6-2.6); Osmolality,Calculated 281 (275-295); Potassium 3.8 mMol/L (3.4-5.1); Sodium 139 mMol/L (136-145); eGFR 44 See Note
[2024-11-23] MEDS: PANTOPRAZOLE INJ 40 MG VIAL IVP ×2 (09:03→21:37)
--- NOTE | 2024-11-23 09:10 | PC.SS ---
Follow up note: EGD today.
[2024-11-23] MEDS: HYDROmorphone INJ 2 MG/ML VIAL 0.5 MG IVP (09:31)
[2024-11-23] MEDS: amLODIPine BESYLATE 5 MG TABLET 10 MG PO (09:53)
--- NOTE | 2024-11-23 11:02 | ESPR_ITS ---
<Statement entered by Jesus Alberto Wynne MD - 11/23/24 22:01> Patient was seen and examined at bedside. Patient overnight still required significant amount of pain medications including morphine and Benadryl. His heart rate was elevated at 103, his lab showed CBC 9.5 hemoglobin, WBC of 6.8. Patient was scheduled for EGD due to his anemia today by Dr. Nava esophagitis with small nonbleeding ulcers at the gastroesophageal junction. Dr. Nava recommended to prepare the patient for colonoscopy for possible look up for any source of bleeding.. Patient was also noticed to have bicarb level of 18.7 which most likely secondary to the pain. His serum creatinine improved from 2.5-2.0. Dr Morelos saw the patient and recommended to change the intraureteral stents exchanged on 28 Nov 2024. - Patient's plan and care discussed with my attending, Dr. Santosh Wynne MD Internal Medicine PGY-2 Documentation for date of: 11/23/24 Subjective Subjective Interval history: Patient was seen and examined at bedside this AM. No acute exents overnight. Patient npo, adequate urine output and mentation is at baseline. Patient complains of 10/10 right lower quadrant pain EGD completed on 11/23/2024 findings include: Esophagitis and is few small nonbleeding ulcers at the gastroesophageal junction. Patient currently on GoLytely prep for colonoscopy once clear to identify source of bleeding Urologist, Dr. Morelos assessed patient today and schedule him for bilateral ureteral stent exchange on 11/28/2024 Exam Vital Signs Temp Pulse Resp BP Pulse Ox O2 Del Method 98.5 F 93 18 138/86 H 98 Room Air 11/23/24 08:00 11/23/24 09:53 11/23/24 08:00 11/23/24 09:53 11/23/24 08:00 11/23/24 08:00 Narrative Exam Constitutional Alert, oriented x 3 and comfortable HEENT Vision grossly intact. Patent nares. Trachea midline Respiratory Chest normal on inspection and clear auscultation bilaterally Cardiovascular S1 and S2 audible, RRR. No murmurs carotid bruit. No gross JVD. Abdominal Soft and non tender to palpation in all quadrants. BS + Genitourinary No bladder tenderness, bilateral renal angle tenderness Musculoskeletal Extremities tone within normal limits. No LE edema. Neurological CN II - XII grossly intact. Extremity motor and sensation grossly intact. Skin Warm, dry and intact. No apparent lesions. Psychiatric Patient has good affect, is cooperative Objective Labs 11/24/24 05:08 11/24/24 05:08 Labs: Laboratory Results - last 24 hr 11/22/24 11/22/24 11/23/24 04:35 17:11 05:40 WBC 6.8 RBC 4.12 L Hgb 10.2 L D 9.5 L Hct 32.4 L 30.3 L MCV 74 L MCH 23.1 L MCHC 31.4 RDW Std Deviation 51.0 H Plt Count 229 D Neut % (Auto) 85 H Lymph % (Auto) 4 L [place] % (Auto) 10 Eos % (Auto) 1 Baso % (Auto) 0 Neut # (Auto) 5.7 Lymph # (Auto) 0.3 L [place] # (Auto) 0.7 Eos # (Auto) 0.1 Baso # (Auto) 0.0 Immature Gran # (Auto) 0.02 H Absolute Nucleated RBC 0.00 Immature Gran % 0 Nucleated RBC % 0 Sodium 139 Potassium 3.8 Chloride 108 H Carbon Dioxide 18.7 L Anion Gap 12 BUN 27 H Creatinine 2.0 H D Estim Creat Clear Calc 31.7 L eGFR 44 L BUN/Creatinine Ratio 14 Glucose 79 Calculated Osmolality 281 Calcium 8.3 Phosphorus 3.0 Magnesium 1.9 Blood Type A Positive Antibody Screen NEGATIVE Crossmatch See Detail Blood Bank Wristband ID Yes Quality Measures Quality Measures none Assessment & Plan Assessment Current Active Medications: Generic Name Dose Route Start Last Admin Trade Name Freq PRN Reason Stop Dose Admin Acetaminophen 650 mg 11/22/24 07:56 Acetaminophen 325 Mg Tablet PO 12/22/24 07:55 Q6H PRN Fever >100 or pain (1-3) Albuterol/Ipratropium 3 ml 11/22/24 07:56 Albuterol/Ipratropium (Duoneb) Rt Rachael 3 Ml Nebu INH 12/22/24 07:55 Q4HR PRN SHORTNESS OF BREATH OR WHEEZE Amlodipine Besylate 10 mg 11/22/24 09:00 11/23/24 09:53 Amlodipine Besylate 5 Mg Tablet PO 12/22/24 08:59 10 mg QDAY ARACELY Administration Hydromorphone HCl 2 mg 11/22/24 17:15 05/02/25 03:55 Hydromorphone Hcl 2 Mg Tablet PO 11/27/24 17:14 2 mg TID PRN Administration Pain RATED 4-10 Piperacillin/Tazobactam/Dextrose 3.375 gm in 50 mls @ 12.5 mls/hr 11/22/24 08:30 11/23/24 05:38 Zosyn IV 11/29/24 08:29 12.5 mls/hr Q8HR ARACELY Administration Ondansetron HCl 4 mg 11/22/24 07:56 11/22/24 08:55 Ondansetron Inj 2 Mg/Ml Inj 2 Ml IV 12/22/24 07:55 4 mg Q6H PRN Administration NAUSEA OR VOMITING Protocol Pantoprazole Sodium 40 mg 11/22/24 14:30 11/23/24 09:03 Pantoprazole Inj 40 Mg Vial IVP 12/22/24 14:29 40 mg BID ARACELY Administration Sennosides 1 tab 11/22/24 09:00 11/23/24 09:49 Senna Tablet PO 12/22/24 08:59 Not Given QDAY ARACELY Protocol Plan Pierce Dixon is a 34-year-old male with a past medical history of spina bifida (wheelchair-bound), 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 Patient will be admitted for treatment and management of bilateral pyelonephritis secondary to infected ureteral stents. Urology, Dr. Morelos consulted and closely following the case. Acute blood loss anemia for investigation Possible upper GI bleed Unspecified transfusion reaction Patient's was taking ibuprofen for the past 3 days for his bilateral flank pain. Baseline Hb between 8.6?10. On admission Hb 7.1 During PRBC infusion patient developed mild allergic, non-anaphylactic reaction. Rate of infusion was halved and Benadryl 25 Mg IV x 1. EGD completed on 11/23/2024 findings include: Esophagitis and is few small nonbleeding ulcers at the gastroesophageal junction. Patient currently on GoLytely prep for colonoscopy once clear to identify source of bleeding Plan: ? Clear liquid diet ? FOBT ordered ? Protonix 40 Mg IV twice daily - GoLytely bowel prep, for colonoscopy once cleared ? GI, Dr. Nava consulted. Appreciate recommendations Bilateral pyelonephritis secondary to indwelling bilateral ureteral stents History of bilateral staghorn calculi History of recurrent UTIs Patient presented with 3-day history of bilateral flank pain and dysuria On exam has bilateral flank tenderness Patient's had bilateral ureteral stent placement May 2024 and was following up with urology. CT abdomen/pelvis significant for bilateral extensive staghorn calculi with bilateral ureteral stents. Thickening of the [place] of the pelvicalyceal system with minimal perinephric stranding. Findings most consistent with bilateral pyelonephritis, bilateral ureteritis and cystitis. Urologist, Dr. Morelos assessed patient today and schedule him for bilateral ureteral stent exchange on 11/28/2024 Plan: ? Awaiting blood and urine cultures ? Continue Zosyn 3.375 g IV Q8 hourly started on [11/22? ? Hyoscyamine 0.25 Mg p.o. every 4 hours as needed for renal colic ? For bilateral ureteral stent replacement ? Urology, Dr. Morelos consulted and closely following the case. Appreciate recommendations Acute kidney injury likely postrenal?resolving On admission patient's CR 2.5. Baseline CR 1.4?1.6 Today BUN 27 and CR 2 Most likely obstructive due to infected stents. Plan: ? Gentle IV hydration with 1 L normal saline over 24 hours ? Patient scheduled for stent replacements by urology on 11/28/2024 Primary hypertension On admission BP 173/113. Home medication amlodipine 10 Mg p.o. daily and clonidine 0.1 Mg p.o. daily Plan: ? Continue home medication amlodipine 10 Mg p.o. 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 Continue outpatient follow-up Health maintenance: Disposition: IV antibiotics. For colonoscopy once cleared Diet: Clear liquid Lines: pIVs GI Prophylaxis: Pantoprazole 40 Mg IV twice daily Thrombo Prophylaxis: SCDs Code status: FULL CODE Plan of care discussed with Attending Dr. Frost and PGY 2 Dr. Sherrell Macedo MD PGY 1 Disclaimer: This note was dictated by speech recognition. Minor errors in hoist cylinder loader may be present due to voice recognition software. Attending Provider Attestation/Addendum I have examined the patient, reviewed labs and imaging findings, discussed the case with the resident(s), and reviewed entered orders. I agree with the plan of care as outlined in this note, with these additional summaries/recommendations: Patient seen at bedside. No acute overnight events. Patient went for EGD today to evaluate for symptomatic anemia which revealed esophagitis, a few small nonbleeding erosions at GE junction, diffuse moderate inflammation in gastric antrum, and normal duodenum. No source of bleeding identified and patient will start GoLytely, clear liquid diet and colonoscopy once cleared. Patient also continues to endorse urinary symptoms. CT scan of abdomen/pelvis showed findings most consistent with bilateral pyelonephritis, bilateral ureteritis, and ureteral stents. Urology was consulted by emergency room provider and he has agreed to consult on the case with likely stent exchange while hospitalized. Continue IV antibiotics. Follow-up urine and blood cultures. Continue pain management for severe pain. Patient updated on the plan and in agreement. Dr. Santosh MD
--- NOTE | 2024-11-23 12:28 | PC.NURSE ---
Report given to Shawn Ambrosio.
--- NOTE | 2024-11-23 12:53 | PC.NURSE ---
Patient transferred to Endo via gurney.
--- NOTE | 2024-11-23 13:48 | SUR.PHASEI ---
1348: Pt. wakes to name and then drifts back to sleep, vitals stable, breathing unlabored, no complaint of pain or nausea, no dressing in place, no active bleed noted, report received from Afshan PADILLA.
--- NOTE | 2024-11-23 14:45 | PC.NURSE ---
Report received from Endo VALERIE Corral
--- NOTE | 2024-11-23 14:45 | SUR.PHASEI ---
1445: Pt. AAOx4, vitals stable, breathing unlabored, complaint of kidney pain, notified Floor nurse Kana of pt. discomfort, pt. tolerated sips of water well, no active bleed noted. Gave report to Kana RN prior to transfer to room 358.
[2024-11-23] MEDS: NA SU/NAHCO3/KC/PEG (Golytely) 4,000 ML BTL 4000 ML PO (16:35)
[2024-11-23] MEDS: SODIUM CHLORIDE 0.9% 1000 ML 1,000 ML 50 ML IV (16:48)
[2024-11-23] MEDS: HYOSCYAMINE SULF 0.125 MG TAB.SUBL 0.25 MG PO (19:40)
[2024-11-24] VITALS (11 sets, daily range): BP systolic 140–170; BP diastolic 88–118; PULSE 105–119; RESP 15–97; TEMP 36.3–36.7; O2SAT 95–99
[2024-11-24] MEDS: HYDROMORPHONE HCL 2 MG TABLET PO ×2 (00:22→09:21)
[2024-11-24] MEDS: PIPER/TAZO 3.375 GM PREMIX 3.375 GM/50 ML BAG IV ×2 (05:07→13:01)
[2024-11-24 05:33] LABS: Basophils % (Auto) 1 % (0-2.5); Eosinophils # (Auto) 0.1 Thou/mm3 (0.0-0.5); Eosinophils % (Auto) 2 % (0-10); Hematocrit 32.4 % (41.0-53.0); Hemoglobin 10.2 g/dL (13.5-16.0); Immature Granulocytes % (Auto) 0 % (0-0); Immature Granulocytes Auto 0.02 Thou/mm3 (0.00-0.00); Lymphocytes # (Auto) 0.4 Thou/mm3 (1.0-4.8); Lymphocytes % (Auto) 7 % (10-50); Mean Corpuscular HGB Conc 31.5 g/dl (31.0-37.0); Mean Corpuscular Hemoglobin 22.9 pg (25.0-35.0); Mean Corpuscular Volume 73 fL (80-100); Monocytes # (Auto) 0.7 Thou/mm3 (0.0-0.8); Monocytes % (Auto) 11 % (0-12); Neutrophils # (Auto) 4.9 Thou/mm3 (1.8-7.7); Neutrophils % (Auto) 79 % (37-80); Nucleated Red Blood Cell % 0 /100 WBC (0); Platelet Count 255 Thou/mm3 (140-440); RDW Standard Deviation 50.7 fL (35.1-43.9); Red Blood Count 4.46 Miln/mm3 (4.50-5.90); White Blood Count 6.2 Thou/mm3 (3.8-10.6)
[2024-11-24 05:52] LABS: Anion Gap 15 (7-16); BUN/Creatinine Ratio 12 Ratio (12-20); Blood Urea Nitrogen 20 mg/dL (9-23); Calcium 8.3 mg/dL (8.3-10.6); Carbon Dioxide 17.4 mMol/L (20.0-31.0); Chloride 109 mMol/L (98-107); Creatinine (Component) 1.7 mg/dL (0.6-1.3); Estimated Creatinine Clearance 37.3 mL/min (>60); Glucose 84 mg/dL (74-106); Magnesium 1.9 mg/dL (1.6-2.6); Osmolality,Calculated 282 (275-295); Phosphorous 3.2 mg/dL (2.4-5.1); Potassium 3.5 mMol/L (3.4-5.1); Sodium 141 mMol/L (136-145); eGFR 54 See Note
--- NOTE | 2024-11-24 05:53 | PC.NURSE ---
BP 158/108, HR 108. Dr. Roca was made aware. No new orders at this time.
[2024-11-24] MEDS: HYOSCYAMINE SULF 0.125 MG TAB.SUBL 0.25 MG PO ×2 (06:42→11:49)
[2024-11-24] MEDS: amLODIPine BESYLATE 5 MG TABLET 10 MG PO (08:57)
[2024-11-24] MEDS: PANTOPRAZOLE INJ 40 MG VIAL IVP ×2 (08:58→20:22)
[2024-11-24] MEDS: SENNA TABLET 1 TAB PO (09:05)
--- NOTE | 2024-11-24 12:14 | PC.SS ---
This is 34-year-old, , single male who presented to the ED due to suffering from flank pain. Patient appeared alert and oriented to self, place and situation. Patient was pleasant. Patient resides alone at home. Patient is semi-independent with all his ADLs. He has a wheelchair. Patient's medical decision maker is his mother, Yesenia Michael. Patient's PCP is Vandana Sears. When medically clear, patient will return home, no transportation is needed.
[2024-11-24] MEDS: HYDROmorphone INJ 2 MG/ML VIAL 1 MG IVP ×2 (14:26→21:35)
[2024-11-24] MEDS: cefTRIAXone/D5w 1gm IV premix 1 GM/50 ML BAG IV (14:47)
--- NOTE | 2024-11-24 17:25 | ESPR_ITS ---
Documentation for date of: 11/24/24 Subjective Subjective Interval history: Patient was seen and examined at bedside. Patient reported that his pain is not controlled with the Dilaudid p.o. For that reason we switched his Dilaudid to IV 1 mg every 4 hours. His vitals showed tachycardia 107, tachypnea, blood pressure of 158/108, his CBC showed no significant changes, however his CMP showed worsening of his alkalosis however we will keep close monitoring most likely his alkalosis related to the hyperventilation because of the pain. On his day Dr Morelos will replace his stents. Patient still on antibiotic Zosyn. EGD was done yesterday and it failed to show any source of bleeding. At this time patient is on GoLytely preparation for colonoscopy. Exam Vital Signs Temp Pulse Resp BP Pulse Ox O2 Del Method O2 Flow Rate 97.4 F 119 H 18 156/101 H 99 Room Air 3 11/24/24 12:00 11/24/24 16:00 11/24/24 12:00 11/24/24 12:11/24/24 12:00 11/24/24 12:00 11/23/24 13:35 Narrative Exam GEN: AOx3, able to speak full sentences, seems to be in pain HEENT: NC/AC, oral mucosa moist, neck supple CVS: RRR, S1-S2 present, no murmurs appreciated RESP: CTAB GI: Spontaneous guarding, tenderness bilaterally CVA. MSK: Bilateral lower extremity wasting, unable to move lower extremities. 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 Objective Labs 11/25/24 06:21 11/25/24 06:21 Labs: Laboratory Results - last 24 hr 11/24/24 05:08 WBC 6.2 RBC 4.46 L Hgb 10.2 L Hct 32.4 L MCV 73 L MCH 22.9 L MCHC 31.5 RDW Std Deviation 50.7 H Plt Count 255 Neut % (Auto) 79 Lymph % (Auto) 7 L [place] % (Auto) 11 Eos % (Auto) 2 Baso % (Auto) 1 Neut # (Auto) 4.9 Lymph # (Auto) 0.4 L [place] # (Auto) 0.7 Eos # (Auto) 0.1 Baso # (Auto) 0.0 Immature Gran # (Auto) 0.02 H Absolute Nucleated RBC 0.00 Immature Gran % 0 Nucleated RBC % 0 Sodium 141 Potassium 3.5 Chloride 109 H Carbon Dioxide 17.4 L Anion Gap 15 BUN 20 Creatinine 1.7 H Estim Creat Clear Calc 37.3 L eGFR 54 L BUN/Creatinine Ratio 12 Glucose 84 Calculated Osmolality 282 Calcium 8.3 Phosphorus 3.2 Magnesium 1.9 Quality Measures Quality Measures none Assessment & Plan Assessment Current Active Medications: Generic Name Dose Route Start Last Admin Trade Name Freq PRN Reason Stop Dose Admin Acetaminophen 650 mg 11/22/24 07:56 Acetaminophen 325 Mg Tablet PO 12/22/24 07:55 Q6H PRN Fever >100 or pain (1-3) Albuterol/Ipratropium 3 ml 11/22/24 07:56 Albuterol/Ipratropium (Duoneb) Rt Rachael 3 Ml Nebu INH 12/22/24 07:55 Q4HR PRN SHORTNESS OF BREATH OR WHEEZE Amlodipine Besylate 10 mg 11/22/24 09:00 11/24/24 08:57 Amlodipine Besylate 5 Mg Tablet PO 12/22/24 08:59 10 mg QDAY ARACELY Administration Hydromorphone HCl 1 mg 11/24/24 14:11 11/24/24 14:26 Hydromorphone Inj 2 Mg/Ml Vial IVP 11/29/24 14:10 1 mg Q4HR PRN Administration Pain 7-10 Hyoscyamine 0.25 mg 11/23/24 16:39 11/24/24 11:49 Hyoscyamine Sulf 0.125 Mg Tab.Subl PO 12/23/24 16:38 0.25 mg Q4HR PRN Administration ABDOMINAL CRAMPING Ceftriaxone Sodium/Dextrose 1 gm in 50 mls @ 100 mls/hr 11/24/24 14:31 11/24/24 14:47 Rocephin/D5w 1gm Iv Premix IV 12/01/24 14:30 100 mls/hr QDAY ARACELY Administration Ondansetron HCl 4 mg 11/22/24 07:56 11/22/24 08:55 Ondansetron Inj 2 Mg/Ml Inj 2 Ml IV 12/22/24 07:55 4 mg Q6H PRN Administration NAUSEA OR VOMITING Protocol Pantoprazole Sodium 40 mg 11/22/24 14:30 11/24/24 08:58 Pantoprazole Inj 40 Mg Vial IVP 12/22/24 14:29 40 mg BID ARACELY Administration Sennosides 1 tab 11/22/24 09:00 11/24/24 09:05 Senna Tablet PO 12/22/24 08:59 1 tab QDAY ARACELY Administration Protocol Plan Pierce Dixon is a 34-year-old male with a past medical history of spina bifida (wheelchair-bound), 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 Patient will be admitted for treatment and management of bilateral pyelonephritis secondary to infected ureteral stents. Urology, Dr. Morelos consulted and closely following the case. Acute blood loss anemia for investigation Possible upper GI bleed Unspecified transfusion reaction Patient's was taking ibuprofen for the past 3 days for his bilateral flank pain. Baseline Hb between 8.6?10. On admission Hb 7.1 During PRBC infusion patient developed mild allergic, non-anaphylactic reaction. Rate of infusion was halved and Benadryl 25 Mg IV x 1. EGD completed on 11/23/2024 findings include: Esophagitis and is few small nonbleeding ulcers at the gastroesophageal junction. Patient currently on GoLytely prep for colonoscopy once clear to identify source of bleeding Plan: ? Clear liquid diet ? FOBT ordered ? Protonix 40 Mg IV twice daily - GoLytely bowel prep, for colonoscopy once cleared ? GI, Dr. Nava consulted. Appreciate recommendations Bilateral pyelonephritis secondary to indwelling bilateral ureteral stents History of bilateral staghorn calculi History of recurrent UTIs Patient presented with 3-day history of bilateral flank pain and dysuria On exam has bilateral flank tenderness Patient's had bilateral ureteral stent placement May 2024 and was following up with urology. CT abdomen/pelvis significant for bilateral extensive staghorn calculi with bilateral ureteral stents. Thickening of the [place] of the pelvicalyceal system with minimal perinephric stranding. Findings most consistent with bilateral pyelonephritis, bilateral ureteritis and cystitis. Urologist, Dr. Morelos assessed patient today and schedule him for bilateral ureteral stent exchange on 11/28/2024 Urine culture showed Proteus Mirabella's, multidrug resistance that is sensitive to Zosyn. Plan: ? Awaiting final blood cultures ? Continue Zosyn 3.375 g IV Q8 hourly started on [11/22? ? Hyoscyamine 0.25 Mg p.o. every 4 hours as needed for renal colic ? For bilateral ureteral stent replacement that will be done inpatient on Tuesday by Dr. Morelos ? Urology, Dr. Morelos consulted and closely following the case. Appreciate recommendations ? Switch pain medication Dilaudid 2 mg oral to IV Dilaudid 1 mg every 4 hours as needed. Acute kidney injury likely postrenal?resolving On admission patient's CR 2.5. Baseline CR 1.4?1.6 Today BUN 27 and CR 2 Most likely obstructive due to infected stents. Plan: ? Gentle IV hydration with 1 L normal saline over 24 hours ? Patient scheduled for stent replacements by urology on 11/28/2024 Primary hypertension On admission BP 173/113. Home medication amlodipine 10 Mg p.o. daily and clonidine 0.1 Mg p.o. daily Plan: ? Continue home medication amlodipine 10 Mg p.o. 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 Continue outpatient follow-up Health maintenance: Disposition: IV antibiotics. For colonoscopy once cleared Diet: Clear liquid Lines: pIVs GI Prophylaxis: Pantoprazole 40 Mg IV twice daily Thrombo Prophylaxis: SCDs Code status: FULL CODE - Patient's plan and care discussed with my attending, Dr. Santosh Wynne MD Internal Medicine PGY-2 Attending Provider Attestation/Addendum I have examined the patient, reviewed labs and imaging findings, discussed the case with the resident(s), and reviewed entered orders. I agree with the plan of care as outlined in this note, with these additional summaries/recommendations: Patient seen at bedside. No acute overnight events. Patient endorses severe pain not responding to oral diluadid, we will switch to IV. Patient endorses minor improvement in urinary symptoms. Patient went for EGD yesterday to evaluate for symptomatic anemia which revealed esophagitis, a few small nonbleeding erosions at GE junction, diffuse moderate inflammation in gastric antrum, and normal duodenum. No source of bleeding identified and patient receiving GoLytely, clear liquid diet and colonoscopy once cleared. Patient also continues to endorse urinary symptoms. CT scan of abdomen/pelvis showed findings most consistent with bilateral pyelonephritis, bilateral ureteritis, and ureteral stents. Urology consulted with plans for stent exchange early next week. Continue IV antibiotics. Blood cultures show no growth at 48 hours and ur cx grew proteus mirabilis. Continue pain management for severe pain. Patient updated on the plan and in agreement. Dr. Santosh MD
[2024-11-24] MEDS: HYDROmorphone INJ 2 MG/ML VIAL 0.5 MG IVP (17:28)
--- NOTE | 2024-11-24 17:40 | PD.IMPROG ---
Documentation for date of: 11/24/24 Subjective Subjective Interval history: Patient not clear High colonic tapwater enema Colonoscopy canceled for today N.p.o. midnight tonight except p.o. meds Colonoscopy a.m. Exam Vital Signs Temp Pulse Resp BP Pulse Ox O2 Del Method O2 Flow Rate 97.4 F 116 H 18 167/111 H 97 Room Air 3 11/24/24 16:00 11/24/24 16:00 11/24/24 16:00 11/24/24 16:00 11/24/24 16:00 11/24/24 16:00 11/23/24 13:35 Routine Respiratory Exam Comments: Normal to auscultation Routine Abdominal Exam Comments: Soft nontender Objective Labs 11/24/24 05:08 11/24/24 05:08 Labs: Laboratory Results - last 24 hr 11/24/24 05:08 WBC 6.2 RBC 4.46 L Hgb 10.2 L Hct 32.4 L MCV 73 L MCH 22.9 L MCHC 31.5 RDW Std Deviation 50.7 H Plt Count 255 Neut % (Auto) 79 Lymph % (Auto) 7 L [place] % (Auto) 11 Eos % (Auto) 2 Baso % (Auto) 1 Neut # (Auto) 4.9 Lymph # (Auto) 0.4 L [place] # (Auto) 0.7 Eos # (Auto) 0.1 Baso # (Auto) 0.0 Immature Gran # (Auto) 0.02 H Absolute Nucleated RBC 0.00 Immature Gran % 0 Nucleated RBC % 0 Sodium 141 Potassium 3.5 Chloride 109 H Carbon Dioxide 17.4 L Anion Gap 15 BUN 20 Creatinine 1.7 H Estim Creat Clear Calc 37.3 L eGFR 54 L BUN/Creatinine Ratio 12 Glucose 84 Calculated Osmolality 282 Calcium 8.3 Phosphorus 3.2 Magnesium 1.9 Impressions Impression: Acute posthemorrhagic anemia Clear liquid diet to continue N.p.o. midnight tonight Colonoscopy a.m. High colonic adenoma with tapwater Assessment & Plan A&P Narrative # Acute posthemorrhagic anemia the patient was used ibuprofen Plan N.p.o. midnight tonight Consent obtained for fiberoptic esophagogastroduodenoscopy with possible biopsy possible therapeutic intervention under intravenous moderate sedation tentatively scheduled for tomorrow IV Protonix Repeat CBC in the morning Will follow the patient Other medical problems include Recurrent UTI Renal stone disease Post renal abnormal renal function test in a patient with bilateral ureteric stent placed Spina bifid with multiple surgeries Thank you very much for the opportunity to participate in care of this patient Time Spent With Patient Time: Total time spent is greater than 50% in coordination of care (as documented) at patient's floor/unit and/or counseling patient:
[2024-11-25] VITALS (21 sets, daily range): BP systolic 141–173; BP diastolic 93–113; PULSE 70–120; RESP 13–98; TEMP 36.4–36.9; O2SAT 95–100
[2024-11-25] MEDS: HYDROmorphone INJ 2 MG/ML VIAL 1 MG IVP ×6 (01:39→23:18)
--- NOTE | 2024-11-25 05:15 | PC.NURSE ---
MD Leyva made aware of pts BP 169/111, Md ordered to give the amlodipine 10 mg at this time now for his AM dose and will recheck his BP afterwards.
[2024-11-25] MEDS: amLODIPine BESYLATE 5 MG TABLET 10 MG PO (05:16)
[2024-11-25 07:06] LABS: Basophils % (Auto) 0 % (0-2.5); Eosinophils # (Auto) 0.1 Thou/mm3 (0.0-0.5); Eosinophils % (Auto) 1 % (0-10); Hematocrit 33.1 % (41.0-53.0); Hemoglobin 10.4 g/dL (13.5-16.0); Immature Granulocytes % (Auto) 0 % (0-0); Immature Granulocytes Auto 0.02 Thou/mm3 (0.00-0.00); Lymphocytes # (Auto) 0.4 Thou/mm3 (1.0-4.8); Lymphocytes % (Auto) 5 % (10-50); Mean Corpuscular HGB Conc 31.4 g/dl (31.0-37.0); Mean Corpuscular Hemoglobin 23.2 pg (25.0-35.0); Mean Corpuscular Volume 74 fL (80-100); Monocytes # (Auto) 0.6 Thou/mm3 (0.0-0.8); Monocytes % (Auto) 8 % (0-12); Neutrophils % (Auto) 85 % (37-80); Nucleated Red Blood Cell % 0 /100 WBC (0); Platelet Count 255 Thou/mm3 (140-440); RDW Standard Deviation 52.8 fL (35.1-43.9); Red Blood Count 4.49 Miln/mm3 (4.50-5.90)
[2024-11-25 07:11] LABS: Anion Gap 19 (7-16); BUN/Creatinine Ratio 10 Ratio (12-20); Blood Urea Nitrogen 16 mg/dL (9-23); Calcium 8.6 mg/dL (8.3-10.6); Chloride 104 mMol/L (98-107); Creatinine (Component) 1.6 mg/dL (0.6-1.3); Estimated Creatinine Clearance 39.7 mL/min (>60); Glucose 71 mg/dL (74-106); Magnesium 1.9 mg/dL (1.6-2.6); Osmolality,Calculated 273 (275-295); Phosphorous 3.4 mg/dL (2.4-5.1); Potassium 3.6 mMol/L (3.4-5.1); Sodium 137 mMol/L (136-145); eGFR 58 See Note
[2024-11-25] MEDS: hydrALAZINE HCL 10 MG TABLET PO (08:50)
[2024-11-25] MEDS: SODIUM CHLORIDE 0.9% 1000 ML 1,000 ML 50 ML IV (08:52)
[2024-11-25] MEDS: cefTRIAXone/D5w 1gm IV premix 1 GM/50 ML BAG IV (08:52)
[2024-11-25] MEDS: PANTOPRAZOLE INJ 40 MG VIAL IVP ×2 (08:53→20:09)
[2024-11-25] MEDS: MUPIROCIN OINT 2% 15 GM TUBE TOP (09:03)
--- NOTE | 2024-11-25 10:42 | ESPR_ITS ---
Documentation for date of: 11/25/24 Subjective Subjective Interval history: Patient was seen and examined at bedside this AM. No acute exents overnight. Patient tolerating diet, adequate urine output and mentation is at baseline. Patient endorses improvement of abdominal pain. Colonoscopy completed on 11/25/2024 findings include: Hemorrhoids on perianal exam. Entire examined colon is normal. Exam Vital Signs Temp Pulse Resp BP Pulse Ox O2 Del Method O2 Flow Rate 97.9 F 104 H 19 173/109 H 99 Room Air 3 11/25/24 08:00 11/25/24 08:50 11/25/24 08:00 11/25/24 08:50 11/25/24 08:00 11/25/24 08:00 11/23/24 13:35 Narrative Exam GEN: AOx3, able to speak full sentences, seems to be in pain HEENT: NC/AC, oral mucosa moist, neck supple CVS: RRR, S1-S2 present, no murmurs appreciated RESP: CTAB GI: Spontaneous guarding, tenderness bilaterally CVA. MSK: Bilateral lower extremity wasting, unable to move lower extremities. SKIN: warm and dry PHARMACOMETRICIAN: CN II-XII and Sensation grossly intact. Objective Labs 11/26/24 04:53 11/26/24 04:53 Labs: Laboratory Results - last 24 hr 11/25/24 06:21 WBC 7.0 RBC 4.49 L Hgb 10.4 L Hct 33.1 L MCV 74 L MCH 23.2 L MCHC 31.4 RDW Std Deviation 52.8 H Plt Count 255 Neut % (Auto) 85 H Lymph % (Auto) 5 L [place] % (Auto) 8 Eos % (Auto) 1 Baso % (Auto) 0 Neut # (Auto) 6.0 Lymph # (Auto) 0.4 L [place] # (Auto) 0.6 Eos # (Auto) 0.1 Baso # (Auto) 0.0 Immature Gran # (Auto) 0.02 H Absolute Nucleated RBC 0.00 Immature Gran % 0 Nucleated RBC % 0 Sodium 137 Potassium 3.6 Chloride 104 Carbon Dioxide 14.0 L* Anion Gap 19 H BUN 16 Creatinine 1.6 H Estim Creat Clear Calc 39.7 L eGFR 58 L BUN/Creatinine Ratio 10 L Glucose 71 L Calculated Osmolality 273 L Calcium 8.6 Phosphorus 3.4 Magnesium 1.9 Quality Measures Quality Measures none Assessment & Plan Assessment Current Active Medications: Generic Name Dose Route Start Last Admin Trade Name Freq PRN Reason Stop Dose Admin Acetaminophen 650 mg 11/22/24 07:56 Acetaminophen 325 Mg Tablet PO 12/22/24 07:55 Q6H PRN Fever >100 or pain (1-3) Albuterol/Ipratropium 3 ml 11/22/24 07:56 Albuterol/Ipratropium (Duoneb) Rt Rachael 3 Ml Nebu INH 12/22/24 07:55 Q4HR PRN SHORTNESS OF BREATH OR WHEEZE Amlodipine Besylate 10 mg 11/22/24 09:00 11/25/24 05:16 Amlodipine Besylate 5 Mg Tablet PO 12/22/24 08:59 10 mg QDAY ARACELY Administration Hydromorphone HCl 1 mg 11/24/24 14:11 11/25/24 09:33 Hydromorphone Inj 2 Mg/Ml Vial IVP 11/29/24 14:10 1 mg Q4HR PRN Administration Pain 7-10 Hyoscyamine 0.25 mg 11/23/24 16:39 11/24/24 11:49 Hyoscyamine Sulf 0.125 Mg Tab.Subl PO 12/23/24 16:38 0.25 mg Q4HR PRN Administration ABDOMINAL CRAMPING Ceftriaxone Sodium/Dextrose 1 gm in 50 mls @ 100 mls/hr 11/24/24 14:31 11/25/24 08:52 Rocephin/D5w 1gm Iv Premix IV 12/01/24 14:30 100 mls/hr QDAY ARACELY Administration Sodium Chloride 1,000 mls @ 50 mls/hr 11/25/24 07:48 11/25/24 08:52 Ns IV 11/26/24 03:47 50 mls/hr .Q20H ONE Administration Ondansetron HCl 4 mg 11/22/24 07:56 11/22/24 08:55 Ondansetron Inj 2 Mg/Ml Inj 2 Ml IV 12/22/24 07:55 4 mg Q6H PRN Administration NAUSEA OR VOMITING Protocol Pantoprazole Sodium 40 mg 11/22/24 14:30 11/25/24 08:53 Pantoprazole Inj 40 Mg Vial IVP 12/22/24 14:29 40 mg BID ARACELY Administration Sennosides 1 tab 11/22/24 09:00 11/25/24 09:10 Senna Tablet PO 12/22/24 08:59 Not Given QDAY [facility] Protocol Plan Pierce Dixon is a 34-year-old male with a past medical history of spina bifida (wheelchair-bound), 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 Patient will be admitted for treatment and management of bilateral pyelonephritis secondary to infected ureteral stents. Urology, Dr. Morelos consulted and closely following the case. Acute blood loss anemia for investigation Possible upper GI bleed Unspecified transfusion reaction Iron deficiency anemia Patient's was taking ibuprofen for the past 3 days for his bilateral flank pain. Baseline Hb between 8.6?10. On admission Hb 7.1 During PRBC infusion patient developed mild allergic, non-anaphylactic reaction. Rate of infusion was halved and Benadryl 25 Mg IV x 1. EGD completed on 11/23/2024 findings include: Esophagitis and is few small nonbleeding ulcers at the gastroesophageal junction. Colonoscopy completed on 11/25/2024 findings include: Hemorrhoids on perianal exam. Entire examined colon is normal. Plan: ? Protonix 40 Mg IV twice daily - No source of bleeding identified on both upper and lower endoscopy. ? GI, Dr. Nava consulted. Appreciate recommendations Bilateral pyelonephritis secondary to indwelling bilateral ureteral stents History of bilateral staghorn calculi History of recurrent UTIs Patient presented with 3-day history of bilateral flank pain and dysuria On exam has bilateral flank tenderness Patient's had bilateral ureteral stent placement May 2024 and was following up with urology. CT abdomen/pelvis significant for bilateral extensive staghorn calculi with bilateral ureteral stents. Thickening of the ogden of the pelvicalyceal system with minimal perinephric stranding. Findings most consistent with bilateral pyelonephritis, bilateral ureteritis and cystitis. Scheduled for ureteral stent exchange in 11/28/[address] Morelos Urine culture showed Proteus Mirabella's, multidrug resistance that is sensitive to ceftriaxone. Blood cultures showed MBG x 48 hours Received Zosyn 3.375 g IV every 8 hourly from [11/22 - 11/24] Plan: - Continue ceftriaxone 1 g IV daily started on [11/24? ? Hyoscyamine 0.25 Mg p.o. every 4 hours as needed for renal colic ? For bilateral ureteral stent replacement that will be done inpatient on Tuesday by Dr. Morelos ? Urology, Dr. Morelos consulted and closely following the case. Appreciate recommendations ? Continue IV Dilaudid 1 mg every 4 hours as needed. Acute kidney injury likely postrenal?resolving On admission patient's CR 2.5. Baseline CR 1.4?1.6 Today BUN 16 and CR 1.6 Most likely obstructive due to infected stents. Plan: ? Gentle IV hydration with 1 L normal saline over 24 hours ? Patient scheduled for stent replacements by urology on 11/28/2024 Primary hypertension On admission BP 173/113. Home medication amlodipine 10 Mg p.o. daily and clonidine 0.1 Mg p.o. daily Plan: ? Continue home medication amlodipine 10 Mg p.o. daily - Resumed home medication clonidine 0.1 Mg p.o. 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 Continue outpatient follow-up Health maintenance: Disposition: IV antibiotics. For ureteral stent exchange on 11/28/2024 Diet: Cardiac Lines: pIVs GI Prophylaxis: Pantoprazole 40 Mg IV twice daily Thrombo Prophylaxis: SCDs Code status: FULL CODE Plan of care discussed with Attending Dr. Santosh Macedo MD PGY 1 Disclaimer: This note was dictated by speech recognition. Minor errors in embroidery operator may be present due to voice recognition software. Attending Provider Attestation/Addendum I have examined the patient, reviewed labs and imaging findings, discussed the case with the resident(s), and reviewed entered orders. I agree with the plan of care as outlined in this note, with these additional summaries/recommendations: Patient seen at bedside. No acute overnight events. Patient has no new complaints today. Blood pressure noted to be elevated and we will adjust antihypertensive regimen as needed. Patient continues to endorse pain which is now much improved with IV diluadid. Patient endorses minor improvement in urinary symptoms. Patient went for EGD to evaluate for symptomatic anemia which revealed esophagitis, a few small nonbleeding erosions at GE junction, diffuse moderate inflammation in gastric antrum, and normal duodenum. No source of bleeding identified and patient receiving GoLytely, clear liquid diet and colonoscopy today. CT scan of abdomen/pelvis showed findings most consistent with bilateral pyelonephritis, bilateral ureteritis, and ureteral stents. Urology consulted with plans for stent exchange early next week. Continue IV antibiotics. Blood cultures show no growth at 48 hours and ur cx grew proteus mirabilis. Continue pain management for severe pain. Patient updated on the plan and in agreement. Dr. Santosh MD
[2024-11-25 12:10] LABS: Base Excess, Venous -12 (-3-3); O2 Saturation, Venous 98 % (96-97); PCO2, Venous 26 mmHg (36-56); PO2, Venous 92 mmHg (15-58); pH, Venous 7.31 (7.33-7.66)
--- NOTE | 2024-11-25 13:48 | SUR.PHASEI ---
1348: Pt. AAOx4, vitals stable, breathing unlabored, no complaint of pain or nausea, no dressing in place, no active bleed noted, report received from Afshan PADILLA.
--- NOTE | 2024-11-25 14:20 | SUR.PHASEI ---
1420: Pt. AAOx4, vitals stable, breathing unlabored, no complaint of pain or nausea, no dressing in place, no active bleed noted, report given to Jessica PADILLA prior to transfer to room, pt. stated he will notify his family himself of transfer to room.
[2024-11-25] MEDS: cloNIDine HCL 0.1 MG TABLET PO (15:02)
[2024-11-26] VITALS (11 sets, daily range): BP systolic 143–161; BP diastolic 103–111; PULSE 98–112; RESP 16–98; TEMP 36.3–37.2; O2SAT 97–99
[2024-11-26] MEDS: HYDROmorphone INJ 2 MG/ML VIAL 1 MG IVP ×5 (03:24→20:26)
--- NOTE | 2024-11-26 06:02 | PC.NURSE ---
MD Arias made aware of BP 161/105, MD ordered to give morning dose of Amlodipine at this time.
[2024-11-26] MEDS: amLODIPine BESYLATE 5 MG TABLET 10 MG PO (06:03)
[2024-11-26 06:11] LABS: Basophils % (Auto) 0 % (0-2.5); Eosinophils # (Auto) 0.2 Thou/mm3 (0.0-0.5); Eosinophils % (Auto) 2 % (0-10); Hematocrit 34.7 % (41.0-53.0); Hemoglobin 10.6 g/dL (13.5-16.0); Immature Granulocytes % (Auto) 0 % (0-0); Immature Granulocytes Auto 0.02 Thou/mm3 (0.00-0.00); Lymphocytes # (Auto) 0.6 Thou/mm3 (1.0-4.8); Lymphocytes % (Auto) 8 % (10-50); Mean Corpuscular HGB Conc 30.5 g/dl (31.0-37.0); Mean Corpuscular Volume 75 fL (80-100); Monocytes # (Auto) 0.7 Thou/mm3 (0.0-0.8); Monocytes % (Auto) 10 % (0-12); Neutrophils # (Auto) 5.5 Thou/mm3 (1.8-7.7); Neutrophils % (Auto) 79 % (37-80); Nucleated Red Blood Cell % 0 /100 WBC (0); Platelet Count 292 Thou/mm3 (140-440); RDW Standard Deviation 53.3 fL (35.1-43.9); Red Blood Count 4.61 Miln/mm3 (4.50-5.90)
[2024-11-26 06:35] LABS: Anion Gap 14 (7-16); BUN/Creatinine Ratio 10 Ratio (12-20); Blood Urea Nitrogen 17 mg/dL (9-23); Calcium 8.2 mg/dL (8.3-10.6); Carbon Dioxide 16.7 mMol/L (20.0-31.0); Chloride 108 mMol/L (98-107); Creatinine (Component) 1.7 mg/dL (0.6-1.3); Estimated Creatinine Clearance 37.3 mL/min (>60); Glucose 122 mg/dL (74-106); Osmolality,Calculated 280 (275-295); Potassium 3.4 mMol/L (3.4-5.1); Sodium 139 mMol/L (136-145); eGFR 54 See Note
--- NOTE | 2024-11-26 07:36 | ESCONSULT_ITS ---
RE: JOSE MELGAR : 1990 DATE OF CONSULTATION: 11/23/2024 CHIEF COMPLAINT: Flank pain and dysuria. ESTABLISHED DIAGNOSES: 1. Recurrent UTI. 2. Spina bifida, the patient is wheelchair bound. 3. STAVE BLOCK ROLLER shunt. 4. Bilateral staghorn renal calculi, status post placement of bilateral ureteral stents. 5. Hypertension. 6. Chronic anemia. HISTORY OF PRESENT ILLNESS: This is a 34-year-old gentleman, who has a past medical history of bilateral staghorn calculi, status post placement of bilateral ureteral stents. The patient started having bilateral flank pain 3 days prior to coming to the emergency room on 11/22/2024. Pain was severe and it was not radiating and it did not relieve with ibuprofen. He had dysuria. He had no history of fever, chills, vomiting, or diarrhea. The patient had similar symptoms, which required hospitalization in 05/2024. The patient was scheduled for replacement of bilateral ureteral stents and the patient had canceled the appointment. In the emergency room, his blood pressure was 170/130, pulse was 112, respiratory rate was 19, temperature was 97.9, O2 saturation was 98% on room air. His hemoglobin was 7.1, WBC 8.2, platelets 311. PAST MEDICAL HISTORY, FAMILY HISTORY, REVIEW OF SYSTEMS, AND PERSONAL HISTORY: Please refer to the patient's history form dated 11/22/2024. It is in HPI, in EMR. MEDICATIONS: I reviewed the medications from the chart. This revealed: 1. Ferrous sulfate 325 mg p.o. daily. 2. Amlodipine 10 mg p.o. daily. 3. Clonidine 0.1 mg p.o. daily. NARRATIVE REVIEW OF SYSTEMS: General: Denies fever, chills, or diaphoresis. HEENT: Denies headache or visual changes. Denies discharge. Neuro: Denies unusual weakness or difficulty speaking. He has a neurogenic bladder, on intermittent catheterization. Cardio: Denies chest pain or palpitation. Pulmonary: Denies shortness of breath. Psych: Cooperative and pleasant mood and affect. PHYSICAL EXAMINATION: Vital Signs: Stable. They are in HPI, in EMR. General: The patient is not in acute distress, oriented x3. HEENT: Normocephalic, atraumatic. Eyes: No anemia or jaundice. Neck: Supple. Trachea is central. Thyroid is not enlarged. Chest: Symmetrical. Abdomen: No masses. Liver, spleen, and kidney not palpable. No CVA tenderness. Extremities: Revealed no edema, cyanosis, or clubbing. VARIOUS LABORATORIES: Serum sodium is 137, potassium is 3.7, chloride 109. WBC 8.2, hemoglobin 7.1. The patient had been seen by horticultural therapist. ASSESSMENT AND PLAN: From urology point of view, this is a 34-year-old gentleman, he has spina bifida, and he is wheelchair bound. He is status post STAVE BLOCK ROLLER shunt. Recurrent UTI; bilateral staghorn calculi, status post placement of bilateral ureteral stents. RECOMMENDATIONS: Cysto, bilateral retrograde pyelogram, bilateral ureteroscopy, possible laser stone fragmentation, stone basketing, placement of bilateral ureteral stents. All the above issues were discussed with the patient in detail. Question answered to his satisfaction. He verbalized understanding. The patient is scheduled for coming Tuesday in the operating room for the above procedure. DT: 16:33:44 TT: 21:50:00 Ref: [id number] - TID: [id number]
[2024-11-26 07:46] LABS: OBS Developer Lot # 2-24-5517499; OBS Performed By SULIL1; OBS QC OK? Yes; Occult Blood, Stool Positive (Negative)
[2024-11-26] MEDS: cloNIDine HCL 0.1 MG TABLET PO (08:56)
[2024-11-26] MEDS: PANTOPRAZOLE INJ 40 MG VIAL IVP (08:57)
[2024-11-26] MEDS: cefTRIAXone/D5w 1gm IV premix 1 GM/50 ML BAG IV (08:57)
--- NOTE | 2024-11-26 09:29 | PC.SS ---
Follow up note: Waiting for Tuesday pt will have stints changed by Dr. Morelos. On IV pain meds and IV antibiotics. Pt will return home upon dc.
[2024-11-26] MEDS: POTASSIUM CHL 10 mEq IVPB 10 MEQ/100 ML BAG 100 MEQ IV (09:43)
[2024-11-26] MEDS: POTASSIUM CHL 10 mEq IVPB 10 MEQ/100 ML BAG 50 MEQ IV (11:13)
--- NOTE | 2024-11-26 17:41 | ESPR_ITS ---
Documentation for date of: 11/26/24 Subjective Subjective Interval history: Patient was seen and examined at bedside. Patient reported significant improvement in his pain after he was started on Dilaudid 1 mg every 4 hours. He denied any fever or chills. Vitally heart rate of 100, blood pressure of 160/111, hemoglobin showed iron deficiency anemia with hemoglobin level of 10.9 patient is pending colonoscopy today by Dr. Nava, potassium 3.4 which was repleted, has sodium sodium bicarb started to improve and increased from 14-16. Serum creatinine stable at 1.7. Dr Morelos schedule the patient for urethrocystoscopy with possible laser fragmentation on Tuesday. Exam Vital Signs Temp Pulse Resp BP Pulse Ox O2 Del Method O2 Flow Rate 97.9 F 98 18 157/106 H 99 Room Air 3 11/26/24 15:46 11/26/24 16:00 11/26/24 15:46 11/26/24 15:46 11/26/24 15:46 11/26/24 12:00 11/25/24 13:40 Narrative Exam GEN: AOx3, able to speak full sentences, lying in bed comfortably HEENT: NC/AC, oral mucosa moist, neck supple CVS: RRR, S1-S2 present, no murmurs appreciated RESP: CTAB GI: Spontaneous guarding, tenderness bilaterally CVA. MSK: Bilateral lower extremity wasting, unable to move lower extremities. SKIN: warm and dry PACKAGE LINE OPERATOR: CN II-XII and Sensation grossly intact. Objective Labs 11/28/24 05:25 11/28/24 05:25 Labs: Laboratory Results - last 24 hr 11/24/24 11/26/24 15:38 04:53 WBC 7.0 RBC 4.61 Hgb 10.6 L Hct 34.7 L MCV 75 L MCH 23.0 L MCHC 30.5 L RDW Std Deviation 53.3 H Plt Count 292 D Neut % (Auto) 79 Lymph % (Auto) 8 L [place] % (Auto) 10 Eos % (Auto) 2 Baso % (Auto) 0 Neut # (Auto) 5.5 Lymph # (Auto) 0.6 L [place] # (Auto) 0.7 Eos # (Auto) 0.2 Baso # (Auto) 0.0 Immature Gran # (Auto) 0.02 H Absolute Nucleated RBC 0.00 Immature Gran % 0 Nucleated RBC % 0 Sodium 139 Potassium 3.4 Chloride 108 H Carbon Dioxide 16.7 L Anion Gap 14 BUN 17 Creatinine 1.7 H Estim Creat Clear Calc 37.3 L eGFR 54 L BUN/Creatinine Ratio 10 L Glucose 122 H D Calculated Osmolality 280 Calcium 8.2 L Stool Occult Blood Positive A ABG Interpretation ABG results: 11/25/24 12:02 VBG pH 7.31 L VBG pCO2 26 L VBG pO2 92 H VBG Base Excess -12 L Quality Measures Quality Measures none Assessment & Plan Assessment Current Active Medications: Generic Name Dose Route Start Last Admin Trade Name Freq PRN Reason Stop Dose Admin Acetaminophen 650 mg 11/22/24 07:56 Acetaminophen 325 Mg Tablet PO 12/22/24 07:55 Q6H PRN Fever >100 or pain (1-3) Albuterol/Ipratropium 3 ml 11/22/24 07:56 Albuterol/Ipratropium (Duoneb) Rt Rachael 3 Ml Nebu INH 12/22/24 07:55 Q4HR PRN SHORTNESS OF BREATH OR WHEEZE Amlodipine Besylate 10 mg 11/22/24 09:00 11/26/24 06:03 Amlodipine Besylate 5 Mg Tablet PO 12/22/24 08:59 10 mg QDAY ARACELY Administration Clonidine 0.1 mg 11/25/24 15:00 11/26/24 08:56 Clonidine Hcl 0.1 Mg Tablet PO 12/25/24 14:59 0.1 mg DAILY ARACELY Administration Hydromorphone HCl 1 mg 11/24/24 14:11 11/26/24 16:25 Hydromorphone Inj 2 Mg/Ml Vial IVP 11/29/24 14:10 1 mg Q4HR PRN Administration Pain 7-10 Hyoscyamine 0.25 mg 11/23/24 16:39 11/24/24 11:49 Hyoscyamine Sulf 0.125 Mg Tab.Subl PO 12/23/24 16:38 0.25 mg Q4HR PRN Administration ABDOMINAL CRAMPING Ceftriaxone Sodium/Dextrose 1 gm in 50 mls @ 100 mls/hr 11/24/24 14:31 11/26/24 08:57 Rocephin/D5w 1gm Iv Premix IV 12/01/24 14:30 100 mls/hr QDAY ARACELY Administration Ondansetron HCl 4 mg 11/22/24 07:56 11/22/24 08:55 Ondansetron Inj 2 Mg/Ml Inj 2 Ml IV 12/22/24 07:55 4 mg Q6H PRN Administration NAUSEA OR VOMITING Protocol Pantoprazole Sodium 40 mg 11/27/24 09:00 Pantoprazole Inj 40 Mg Vial IVP 12/27/24 08:59 QDAY [facility] Sennosides 1 tab 11/22/24 09:00 11/26/24 08:57 Senna Tablet PO 12/22/24 08:59 [facility] Plan Summary: Pierce Dixon is a 34-year-old male with a past medical history of spina bifida (wheelchair-bound), 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 Patient will be admitted for treatment and management of bilateral pyelonephritis secondary to infected ureteral stents. Urology, Dr. Morelos consulted and closely following the case. Acute blood loss anemia for investigation Possible upper GI bleed Unspecified transfusion reaction Patient's was taking ibuprofen for the past 3 days for his bilateral flank pain. Baseline Hb between 8.6?10. On admission Hb 7.1 During PRBC infusion patient developed mild allergic, non-anaphylactic reaction. Rate of infusion was halved and Benadryl 25 Mg IV x 1. EGD completed on 11/23/2024 findings include: Esophagitis and is few small nonbleeding ulcers at the gastroesophageal junction. Patient currently on GoLytely prep for colonoscopy once clear to identify source of bleeding Plan: ? Clear liquid diet ? Protonix 40 Mg IV twice daily - GoLytely bowel prep, for colonoscopy once cleared ? GI, Dr. Nava consulted. Appreciate recommendations Bilateral pyelonephritis secondary to indwelling bilateral ureteral stents History of bilateral staghorn calculi History of recurrent UTIs Patient presented with 3-day history of bilateral flank pain and dysuria On exam has bilateral flank tenderness Patient's had bilateral ureteral stent placement May 2024 and was following up with urology. CT abdomen/pelvis significant for bilateral extensive staghorn calculi with bilateral ureteral stents. Thickening of the ogden of the pelvicalyceal system with minimal perinephric stranding. Findings most consistent with bilateral pyelonephritis, bilateral ureteritis and cystitis. Urologist, Dr. Morelos assessed patient today and schedule him for bilateral ureteral stent exchange on 11/28/2024 Urine culture showed Proteus Mirabella's, multidrug resistance that is sensitive to Zosyn. ? Blood culture was negative Plan: ? Continue Zosyn 3.375 g IV Q8 hourly started on [11/22? ? Hyoscyamine 0.25 Mg p.o. every 4 hours as needed for renal colic ? For bilateral ureteral stent replacement that will be done inpatient on Tuesday by Dr. Morelos ? Urology, Dr. Morelos consulted and closely following the case. Appreciate recommendations ? Switch pain medication Dilaudid 2 mg oral to IV Dilaudid 1 mg every 4 hours as needed. Acute kidney injury likely postrenal?resolving On admission patient's CR 2.5. Baseline CR 1.4?1.6 Today BUN 27 and CR 2 Most likely obstructive due to infected stents. Plan: ? Gentle IV hydration with 1 L normal saline over 24 hours ? Patient scheduled for stent replacements by urology on 11/28/2024 Primary hypertension On admission BP 173/113. Home medication amlodipine 10 Mg p.o. daily and clonidine 0.1 Mg p.o. daily Plan: ? Continue home medication amlodipine 10 Mg p.o. 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 Continue outpatient follow-up Health maintenance: Disposition: IV antibiotics. For colonoscopy once cleared Diet: Clear liquid Lines: pIVs GI Prophylaxis: Pantoprazole 40 Mg IV twice daily Thrombo Prophylaxis: SCDs Code status: FULL CODE - Patient's plan and care discussed with my attending, Dr. Santosh Wynne MD Internal Medicine PGY-2 Attending Provider Attestation/Addendum I have examined the patient, reviewed labs and imaging findings, discussed the case with the resident(s), and reviewed entered orders. I agree with the plan of care as outlined in this note, with these additional summaries/recommendations: Patient seen at bedside. No acute overnight events. Patient continues to endorse pain which is now much improved with IV diluadid. Blood pressure noted to be elevated and we will adjust antihypertensive regimen as needed. Patient endorses minor improvement in urinary symptoms. Patient went for EGD to evaluate for symptomatic anemia which revealed esophagitis, a few small nonbleeding erosions at GE junction, diffuse moderate inflammation in gastric antrum, and normal duodenum. Colonoscopy only significant for hemorrhoids which may be etiology for anemia +/- COREY . CT scan of abdomen/pelvis showed findings most consistent with bilateral pyelonephritis, bilateral ureteritis, and ureteral stents. Urology consulted with plans for stent exchange on Tuesday. Continue IV antibiotics. Blood cultures show no growth at 48 hours and ur cx grew proteus mirabilis. Continue pain management for severe pain. Patient updated on the plan and in agreement. Dr. Santosh MD
--- NOTE | 2024-11-26 21:09 | PD.IMPROG ---
Documentation for date of: 11/26/24 Subjective Subjective Interval history: Patient evaluate Hemoglobin hematocrit 10.6 and 34.7 Exam Vital Signs Temp Pulse Resp BP Pulse Ox O2 Del Method O2 Flow Rate 98.9 F 104 H 21 H 154/103 H 98 Room Air 3 11/26/24 20:00 11/26/24 20:40 11/26/24 20:40 11/26/24 20:00 11/26/24 20:40 11/26/24 20:00 11/25/24 13:40 Objective Labs 11/26/24 04:53 11/26/24 04:53 Labs: Laboratory Results - last 24 hr 11/24/24 11/26/24 15:38 04:53 WBC 7.0 RBC 4.61 Hgb 10.6 L Hct 34.7 L MCV 75 L MCH 23.0 L MCHC 30.5 L RDW Std Deviation 53.3 H Plt Count 292 D Neut % (Auto) 79 Lymph % (Auto) 8 L [place] % (Auto) 10 Eos % (Auto) 2 Baso % (Auto) 0 Neut # (Auto) 5.5 Lymph # (Auto) 0.6 L [place] # (Auto) 0.7 Eos # (Auto) 0.2 Baso # (Auto) 0.0 Immature Gran # (Auto) 0.02 H Absolute Nucleated RBC 0.00 Immature Gran % 0 Nucleated RBC % 0 Sodium 139 Potassium 3.4 Chloride 108 H Carbon Dioxide 16.7 L Anion Gap 14 BUN 17 Creatinine 1.7 H Estim Creat Clear Calc 37.3 L eGFR 54 L BUN/Creatinine Ratio 10 L Glucose 122 H D Calculated Osmolality 280 Calcium 8.2 L Stool Occult Blood Positive A Impressions Impression: Occult GI bleeding Relatively stable hemoglobin hematocrit Continue current management ABG Interpretation ABG results: 11/25/24 12:02 VBG pH 7.31 L VBG pCO2 26 L VBG pO2 92 H VBG Base Excess -12 L Assessment & Plan A&P Narrative # Acute posthemorrhagic anemia the patient was used ibuprofen Plan N.p.o. midnight tonight Consent obtained for fiberoptic esophagogastroduodenoscopy with possible biopsy possible therapeutic intervention under intravenous moderate sedation tentatively scheduled for tomorrow IV Protonix Repeat CBC in the morning Will follow the patient Other medical problems include Recurrent UTI Renal stone disease Post renal abnormal renal function test in a patient with bilateral ureteric stent placed Spina bifid with multiple surgeries Thank you very much for the opportunity to participate in care of this patient Time Spent With Patient Time: Total time spent is greater than 50% in coordination of care (as documented) at patient's floor/unit and/or counseling patient:
[2024-11-27] VITALS (13 sets, daily range): BP systolic 152–168; BP diastolic 102–110; PULSE 81–111; RESP 17–23; TEMP 36.4–37.1; O2SAT 98–100
[2024-11-27] MEDS: HYDROmorphone INJ 2 MG/ML VIAL 1 MG IVP ×6 (00:27→20:57)
[2024-11-27 06:23] LABS: Basophils % (Auto) 0 % (0-2.5); Eosinophils # (Auto) 0.2 Thou/mm3 (0.0-0.5); Eosinophils % (Auto) 3 % (0-10); Hematocrit 32.4 % (41.0-53.0); Hemoglobin 10.3 g/dL (13.5-16.0); Immature Granulocytes % (Auto) 0 % (0-0); Immature Granulocytes Auto 0.02 Thou/mm3 (0.00-0.00); Lymphocytes # (Auto) 0.7 Thou/mm3 (1.0-4.8); Lymphocytes % (Auto) 11 % (10-50); Mean Corpuscular HGB Conc 31.8 g/dl (31.0-37.0); Mean Corpuscular Volume 72 fL (80-100); Monocytes # (Auto) 0.5 Thou/mm3 (0.0-0.8); Monocytes % (Auto) 8 % (0-12); Neutrophils % (Auto) 78 % (37-80); Nucleated Red Blood Cell % 0 /100 WBC (0); Platelet Count 257 Thou/mm3 (140-440); RDW Standard Deviation 50.7 fL (35.1-43.9); Red Blood Count 4.48 Miln/mm3 (4.50-5.90); White Blood Count 6.4 Thou/mm3 (3.8-10.6)
[2024-11-27 06:59] LABS: Anion Gap 12 (7-16); BUN/Creatinine Ratio 14 Ratio (12-20); Blood Urea Nitrogen 22 mg/dL (9-23); Calcium 8.3 mg/dL (8.3-10.6); Carbon Dioxide 17.1 mMol/L (20.0-31.0); Chloride 111 mMol/L (98-107); Creatinine (Component) 1.6 mg/dL (0.6-1.3); Estimated Creatinine Clearance 39.7 mL/min (>60); Glucose 95 mg/dL (74-106); Magnesium 1.8 mg/dL (1.6-2.6); Osmolality,Calculated 282 (275-295); Phosphorous 3.1 mg/dL (2.4-5.1); Potassium 3.4 mMol/L (3.4-5.1); Sodium 140 mMol/L (136-145); eGFR 58 See Note
[2024-11-27] MEDS: PANTOPRAZOLE INJ 40 MG VIAL IVP (08:38)
[2024-11-27] MEDS: cefTRIAXone/D5w 1gm IV premix 1 GM/50 ML BAG IV (08:38)
[2024-11-27] MEDS: amLODIPine BESYLATE 5 MG TABLET 10 MG PO (08:39)
[2024-11-27] MEDS: cloNIDine HCL 0.1 MG TABLET PO ×2 (08:40→23:38)
--- NOTE | 2024-11-27 11:03 | PD.RESPRO ---
Documentation for date of: 11/27/24 Subjective Subjective Interval history: Patient was seen and examined at bedside this AM. No acute exents overnight. Patient tolerating diet, adequate urine output and mentation is at baseline. Patient endorses improvement of abdominal pain. Well-controlled with hydromorphone 1 Mg IV every 4 hourly as needed. On Rocephin 1 g IV daily for Proteus UTI and pyelonephritis. Scheduled for bilateral ureteral stent exchange tomorrow with urologist, Dr. Morelos. Exam Vital Signs Temp Pulse Resp BP Pulse Ox O2 Del Method O2 Flow Rate 98.3 F 98 20 154/105 H 100 Room Air 3 11/27/24 07:13 11/27/24 10:06 11/27/24 10:06 11/27/24 08:40 11/27/24 10:06 11/27/24 07:13 11/25/24 13:40 Narrative Exam GEN: AOx3, able to speak full sentences, lying in bed comfortably HEENT: NC/AC, oral mucosa moist, neck supple CVS: RRR, S1-S2 present, no murmurs appreciated RESP: CTAB GI: Spontaneous guarding, tenderness bilaterally CVA. MSK: Bilateral lower extremity wasting, unable to move lower extremities. SKIN: warm and dry HADOOP INFRASTRUCTURE ARCHITECT: CN II-XII and Sensation grossly intact. Objective Labs 11/27/24 05:59 11/27/24 05:59 Labs: Laboratory Results - last 24 hr 11/27/24 05:59 WBC 6.4 RBC 4.48 L Hgb 10.3 L Hct 32.4 L MCV 72 L MCH 23.0 L MCHC 31.8 RDW Std Deviation 50.7 H Plt Count 257 D Neut % (Auto) 78 Lymph % (Auto) 11 [place] % (Auto) 8 Eos % (Auto) 3 Baso % (Auto) 0 Neut # (Auto) 5.0 Lymph # (Auto) 0.7 L [place] # (Auto) 0.5 Eos # (Auto) 0.2 Baso # (Auto) 0.0 Immature Gran # (Auto) 0.02 H Absolute Nucleated RBC 0.00 Immature Gran % 0 Nucleated RBC % 0 Sodium 140 Potassium 3.4 Chloride 111 H Carbon Dioxide 17.1 L Anion Gap 12 BUN 22 Creatinine 1.6 H Estim Creat Clear Calc 39.7 L eGFR 58 L BUN/Creatinine Ratio 14 Glucose 95 Calculated Osmolality 282 Calcium 8.3 Phosphorus 3.1 Magnesium 1.8 ABG Interpretation ABG results: 11/25/24 12:02 VBG pH 7.31 L VBG pCO2 26 L VBG pO2 92 H VBG Base Excess -12 L Quality Measures Quality Measures none Assessment & Plan Assessment Current Active Medications: Generic Name Dose Route Start Last Admin Trade Name Freq PRN Reason Stop Dose Admin Acetaminophen 650 mg 11/22/24 07:56 Acetaminophen 325 Mg Tablet PO 12/22/24 07:55 Q6H PRN Fever >100 or pain (1-3) Albuterol/Ipratropium 3 ml 11/22/24 07:56 Albuterol/Ipratropium (Duoneb) Rt Rachael 3 Ml Nebu INH 12/22/24 07:55 Q4HR PRN SHORTNESS OF BREATH OR WHEEZE Amlodipine Besylate 10 mg 11/22/24 09:00 11/27/24 08:39 Amlodipine Besylate 5 Mg Tablet PO 12/22/24 08:59 10 mg QDAY ARACELY Administration Clonidine 0.1 mg 11/25/24 15:00 11/27/24 08:40 Clonidine Hcl 0.1 Mg Tablet PO 12/25/24 14:59 0.1 mg DAILY ARACELY Administration Hydromorphone HCl 1 mg 11/24/24 14:11 11/27/24 08:39 Hydromorphone Inj 2 Mg/Ml Vial IVP 11/29/24 14:10 1 mg Q4HR PRN Administration Pain 7-10 Hyoscyamine 0.25 mg 11/23/24 16:39 11/24/24 11:49 Hyoscyamine Sulf 0.125 Mg Tab.Subl PO 12/23/24 16:38 0.25 mg Q4HR PRN Administration ABDOMINAL CRAMPING Ceftriaxone Sodium/Dextrose 1 gm in 50 mls @ 100 mls/hr 11/24/24 14:31 11/27/24 08:38 Rocephin/D5w 1gm Iv Premix IV 12/01/24 14:30 100 mls/hr QDAY ARACELY Administration Sodium Chloride 1,000 mls @ 60 mls/hr 11/28/24 00:00 Ns IV 11/28/24 16:39 .[id number] ONE Ondansetron HCl 4 mg 11/22/24 07:56 11/22/24 08:55 Ondansetron Inj 2 Mg/Ml Inj 2 Ml IV 12/22/24 07:55 4 mg Q6H PRN Administration NAUSEA OR VOMITING Protocol Pantoprazole Sodium 40 mg 11/27/24 09:00 11/27/24 08:38 Pantoprazole Inj 40 Mg Vial IVP 12/27/24 08:59 40 mg QDAY ARACELY Administration Sennosides 1 tab 11/22/24 09:00 11/27/24 08:39 Senna Tablet PO 12/22/24 08:59 Not Given QDAY [facility] Protocol Plan Pierce Dixon is a 34-year-old male with a past medical history of spina bifida (wheelchair-bound), 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 Patient will be admitted for treatment and management of bilateral pyelonephritis secondary to infected ureteral stents. Urology, Dr. Morelos consulted and closely following the case. Acute blood loss anemia for investigation Upper GI bleed ruled out Unspecified transfusion reaction Iron deficiency anemia DDx: Angiodysplasia, peptic ulcer disease, iron deficiency, autoimmune, nutritional deficiency, medication side effect Patient's was taking ibuprofen for 3 days prior to admission for his bilateral flank pain. Baseline Hb between 8.6?10. On admission Hb 7.1 During PRBC infusion patient developed mild allergic, non-anaphylactic reaction. Rate of infusion was halved and Benadryl 25 Mg IV x 1. EGD completed on 11/23/2024 findings include: Esophagitis and is few small nonbleeding ulcers at the gastroesophageal junction. Colonoscopy completed on 11/25/2024 findings include: Hemorrhoids on perianal exam. Entire examined colon is normal. Plan: - No source of bleeding identified on both upper and lower endoscopy. ? Will restart patient on oral iron upon discharge. ? Patient may need capsule endoscopy upon discharge. ? GI, Dr. Nava consulted. Appreciate recommendations Bilateral pyelonephritis secondary to indwelling bilateral ureteral stents History of bilateral staghorn calculi History of recurrent UTIs Patient presented with 3-day history of bilateral flank pain and dysuria On exam has bilateral flank tenderness Patient's had bilateral ureteral stent placement May 2024 and was following up with urology. CT abdomen/pelvis significant for bilateral extensive staghorn calculi with bilateral ureteral stents. Thickening of the [place] of the pelvicalyceal system with minimal perinephric stranding. Findings most consistent with bilateral pyelonephritis, bilateral ureteritis and cystitis. Scheduled for ureteral stent exchange in 11/28/[address] Morelos Urine culture showed Proteus Mirabella's, multidrug resistance that is sensitive to ceftriaxone. Blood cultures showed NBG x 48 hours Received Zosyn 3.375 g IV every 8 hourly from [11/22 - 11/24] Plan: ? N.p.o. after midnight ? Normal saline 1 L at 60 cc/h to start at midnight - Continue ceftriaxone 1 g IV daily started on [11/24? ? Continue IV Dilaudid 1 mg every 4 hours as needed. ? Hyoscyamine 0.25 Mg p.o. every 4 hours as needed for renal colic ? For bilateral ureteral stent replacement that will be done inpatient on Tuesday by Dr. Morelos ? Urology, Dr. Morelos consulted and closely following the case. Appreciate recommendations Acute kidney injury likely postrenal?resolving On admission patient's CR 2.5. Baseline CR 1.4?1.6 Today BUN 22 and CR 1.6 Most likely obstructive due to infected stents. Plan: ? Patient scheduled for stent replacements by urology on 11/28/2024 Primary hypertension On admission BP 173/113. Home medication amlodipine 10 Mg p.o. daily and clonidine 0.1 Mg p.o. daily Plan: ? Continue home medication amlodipine 10 Mg p.o. daily - Continue home medication clonidine 0.1 Mg p.o. 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 Continue outpatient follow-up Health maintenance: Disposition: IV antibiotics. For ureteral stent exchange on 11/28/2024 Diet: Cardiac. N.p.o. after midnight Lines: pIVs GI Prophylaxis: Pantoprazole 40 Mg IV twice daily Thrombo Prophylaxis: SCDs Code status: FULL CODE Plan of care discussed with Attending Dr. Ranjit Macedo MD PGY 1 Disclaimer: This note was dictated by speech recognition. Minor errors in avionics mechanic may be present due to voice recognition software. Attending Provider Attestation/Addendum I attest that I was physically present for the evaluation, physical examination, lab and imaging review of the patient with the residents. I discussed the case with the residents and agree with the findings and plans of care as documented above. Izzy Church MD
--- NOTE | 2024-11-27 20:28 | PD.IMPROG ---
Documentation for date of: 11/27/24 Subjective Subjective Interval history: Patient evaluated Hemoglobin hematocrit 10.3 and 32.4 Upper endoscopy showed nonbleeding GE junction erosions gastritis Colonoscopy showed internal hemorrhoids otherwise normal to cecum Exam Vital Signs Temp Pulse Resp BP Pulse Ox O2 Del Method O2 Flow Rate 97.5 F 103 H 18 165/103 H 100 Room Air 3 11/27/24 16:00 11/27/24 16:00 11/27/24 16:00 11/27/24 16:00 11/27/24 16:00 11/27/24 16:00 11/25/24 13:40 Objective Labs 11/27/24 05:59 11/27/24 05:59 Labs: Laboratory Results - last 24 hr 11/27/24 05:59 WBC 6.4 RBC 4.48 L Hgb 10.3 L Hct 32.4 L MCV 72 L MCH 23.0 L MCHC 31.8 RDW Std Deviation 50.7 H Plt Count 257 D Neut % (Auto) 78 Lymph % (Auto) 11 [place] % (Auto) 8 Eos % (Auto) 3 Baso % (Auto) 0 Neut # (Auto) 5.0 Lymph # (Auto) 0.7 L [place] # (Auto) 0.5 Eos # (Auto) 0.2 Baso # (Auto) 0.0 Immature Gran # (Auto) 0.02 H Absolute Nucleated RBC 0.00 Immature Gran % 0 Nucleated RBC % 0 Sodium 140 Potassium 3.4 Chloride 111 H Carbon Dioxide 17.1 L Anion Gap 12 BUN 22 Creatinine 1.6 H Estim Creat Clear Calc 39.7 L eGFR 58 L BUN/Creatinine Ratio 14 Glucose 95 Calculated Osmolality 282 Calcium 8.3 Phosphorus 3.1 Magnesium 1.8 Impressions Impression: Nonbleeding GE junction erosions Gastritis Internal hemorrhoids Continue to monitor CBC ABG Interpretation ABG results: 11/25/24 12:02 VBG pH 7.31 L VBG pCO2 26 L VBG pO2 92 H VBG Base Excess -12 L Assessment & Plan A&P Narrative # Acute posthemorrhagic anemia the patient was used ibuprofen Plan N.p.o. midnight tonight Consent obtained for fiberoptic esophagogastroduodenoscopy with possible biopsy possible therapeutic intervention under intravenous moderate sedation tentatively scheduled for tomorrow IV Protonix Repeat CBC in the morning Will follow the patient Other medical problems include Recurrent UTI Renal stone disease Post renal abnormal renal function test in a patient with bilateral ureteric stent placed Spina bifid with multiple surgeries Thank you very much for the opportunity to participate in care of this patient Time Spent With Patient Time: Total time spent is greater than 50% in coordination of care (as documented) at patient's floor/unit and/or counseling patient:
[2024-11-27] MEDS: hydrALAZINE INJ 20 MG/ML VIAL 10 MG IV (20:58)
[2024-11-27] MEDS: SODIUM CHLORIDE 0.9% 1000 ML 1,000 ML 60 ML IV (23:42)
[2024-11-28] VITALS (19 sets, daily range): BP systolic 111–161; BP diastolic 76–110; PULSE 85–109; RESP 12–20; TEMP 36.1–37; O2SAT 98–100
[2024-11-28] MEDS: HYDROmorphone INJ 2 MG/ML VIAL 1 MG IVP ×3 (03:22→12:18)
[2024-11-28 06:33] LABS: Basophils % (Auto) 0 % (0-2.5); Eosinophils # (Auto) 0.2 Thou/mm3 (0.0-0.5); Eosinophils % (Auto) 2 % (0-10); Hematocrit 32.4 % (41.0-53.0); Hemoglobin 10.3 g/dL (13.5-16.0); Immature Granulocytes % (Auto) 0 % (0-0); Immature Granulocytes Auto 0.02 Thou/mm3 (0.00-0.00); Lymphocytes # (Auto) 0.6 Thou/mm3 (1.0-4.8); Lymphocytes % (Auto) 9 % (10-50); Mean Corpuscular HGB Conc 31.8 g/dl (31.0-37.0); Mean Corpuscular Hemoglobin 23.1 pg (25.0-35.0); Mean Corpuscular Volume 73 fL (80-100); Monocytes # (Auto) 0.3 Thou/mm3 (0.0-0.8); Monocytes % (Auto) 4 % (0-12); Neutrophils # (Auto) 5.7 Thou/mm3 (1.8-7.7); Neutrophils % (Auto) 84 % (37-80); Nucleated Red Blood Cell % 0 /100 WBC (0); Platelet Count 281 Thou/mm3 (140-440); RDW Standard Deviation 51.4 fL (35.1-43.9); Red Blood Count 4.46 Miln/mm3 (4.50-5.90); White Blood Count 6.8 Thou/mm3 (3.8-10.6)
[2024-11-28 07:25] LABS: Anion Gap 11 (7-16); BUN/Creatinine Ratio 13 Ratio (12-20); Blood Urea Nitrogen 22 mg/dL (9-23); Calcium 8.5 mg/dL (8.3-10.6); Chloride 113 mMol/L (98-107); Creatinine (Component) 1.7 mg/dL (0.6-1.3); Estimated Creatinine Clearance 37.3 mL/min (>60); Glucose 96 mg/dL (74-106); Osmolality,Calculated 284 (275-295); Phosphorous 3.5 mg/dL (2.4-5.1); Potassium 3.6 mMol/L (3.4-5.1); Sodium 141 mMol/L (136-145); eGFR 54 See Note
[2024-11-28] MEDS: amLODIPine BESYLATE 5 MG TABLET 10 MG PO (08:01)
[2024-11-28] MEDS: SENNA TABLET 1 TAB PO (08:01)
[2024-11-28] MEDS: cloNIDine HCL 0.1 MG TABLET PO (08:01)
[2024-11-28] MEDS: PANTOPRAZOLE INJ 40 MG VIAL IVP (08:02)
[2024-11-28] MEDS: cefTRIAXone/D5w 1gm IV premix 1 GM/50 ML BAG IV (08:03)
--- NOTE | 2024-11-28 09:10 | PC.SS ---
Follow up note: Will have procedure (stints changed) with Dr. Morelos today. Pt will return home upon dc.
--- NOTE | 2024-11-28 09:20 | CHAP ---
Prayed for patient in room. Patient was sleeping.
--- NOTE | 2024-11-28 10:00 | XR_ITS ---
Examination: Bilateral retrograde pyelography Fluoroscopy AP abdomen 7 views Exam date and time: November 28, 2024 1457 hours INDICATIONS: History bilateral flank pain this week, bilateral pyelonephritis on CT stone study November 22, 2024, stent placement today TECHNIQUE AND FINDINGS: 7 spot fluoroscopic films of the abdomen Contrast in dilated calyces bilaterally Ureteral stents satisfactory position Fluoroscopy 40 seconds radiation dose 7 milligray IMPRESSION: Retrograde pyelograms as above
--- NOTE | 2024-11-28 14:56 | SUR.PHASEI ---
pt received from OR in recovery bay 4. pt obtunded, breathing unlabored on nc 6l, oral airway in place. v/s stable. report received from Fritz LOCKHART and Arnaldo PADILLA.
[2024-11-28] MEDS: fentaNYL CIT INJ 50 mCg/ML AMP 2ML 25 MCG IVP ×2 (15:19→15:28)
--- NOTE | 2024-11-28 15:40 | SUR.PHASEI ---
pt awake and alert, breathing unlabored on room air. v/s stable. report called to Linwood PADILLA. pt will be transferred back to room at this time.
--- NOTE | 2024-11-28 16:04 | PC.NURSE ---
PT ALERT AND ORIENTED GCS 15, NO SIGNS OF DISTRESS NOTED .
--- NOTE | 2024-11-28 16:14 | ESOP_ITS ---
Date of Procedure 11/28/24 Pre Op Diagnosis Bilateral staghorn calculi, status post placement of bilateral ureteral stents, neurogenic bladder as a result of spina bifid, urosepsis, bilateral hydronephrosis Post Op Diagnosis Same Procedure Cystoscopic examination removal of bilateral ureteral stents, bilateral retrograde pyelogram bilateral ureteroscopy left stone basketing placement of bilateral ureteral stents under fluoroscopic examination Findings Bilateral staghorn calculi small stone in the bladder and small stone left ureter Procedure Description This is a 34-year-old gentleman he has spina bifid a he had placement of bilateral ureteral stents and which are changed every 3 months. Patient was admitted in the hospital through the emergency room. He had urosepsis and hydronephrosis he was recommended replacement of the stents and ureteroscopy possible stone laser fragmentation possible stone basketing procedure and compli cations were discussed with the patient in great detail informed consent is obtained Patient was brought to the operating room in a satisfactory condition after appropriate premedication was put on the operating table in a supine position he was appropriately identified by surgeon and operating room staff site scope and indication of the procedure were reconfirmed with the patient. General anesth esia was given uneventfully patient was positioned in a dorsolithotomy position parts were prepped and draped in the usual sterile fashion. 21 cystoscope was used to do the cystourethroscopy at this time patient received perioperative antibiotics. 20 mg of Lasix was given IV piggyback for diuresis and prevention of pyelocalyceal infectious complications. Score was in transit into the bladder both stents were encrusted. There were some small stone in the bladder. Next left ureteral orifice was identified stent was coming out of the left ureteral orifice I passed the open-ended Pollick catheter into the left ureteral orifice through the open-ended Pollick catheter I was able to place a safety wire into the upper pole calyx. Next left ureteral stent was removed and ureteroscopic examination left side with the semirigid ureteroscope revealed stones in the ureter which I was able to basket. Retrograde pyelogram revealed no obstruction left side and ureteroscope was removed gently over the safety wire I placed a 26 4 cm 6 [place] double-J stent proximal and in the upper pole calyx distal in the bladder. Similar procedure was repeated on the right side. Next ureteroscope was removed and the position of the stents were confirmed with fluoroscopic examination. Next bladder stones were removed with the [employer] evacuator. Patient after having tolerated the procedure well was moved to recovery room in a satisfactory condition to be followed in urology office Anesthesia GETA Pathology / specimen None Estimated Blood Loss 0.5 Condition Stable Disposition PACU Surgeon Gisel Morelos MD Surgical Staff Operation Date: 11/28/24 14:00 Case Staff Anesthesiologist: Christopher Santos
--- NOTE | 2024-11-28 16:30 | ESPR_ITS ---
<Statement entered by Jesus Alberto Wynne MD - 11/28/24 18:32> Patient was seen and examined at bedside. His vitals are within normal limits, hemoglobin stable at 10.3, his serum creatinine 1.7, his bicarb is 17 stable, he mentions that good control of his pain with the Dilaudid. Patient is scheduled today for ureteral scope and possible laser fragmentation. After that we will wait for the urology recommendations. - Patient's plan and care discussed with my attending, Dr. Helen Wynne MD Internal Medicine PGY-2 Documentation for date of: 11/28/24 Subjective Subjective Interval history: Patient was seen and examined at bedside this AM. No acute exents overnight. Patient tolerating diet, adequate urine output and mentation is at baseline. Patient endorses improvement of abdominal pain. Well-controlled with hydromorphone 1 Mg IV every 4 hourly as needed. On Rocephin 1 g IV daily for Proteus UTI and pyelonephritis. Scheduled for bilateral ureteral stent exchange today with urologist, Dr. Morelos. Exam Vital Signs Temp Pulse Resp BP Pulse Ox O2 Del Method O2 Flow Rate 97.4 F 93 12 145/99 H 98 Room Air 4 11/28/24 16:00 11/28/24 16:00 11/28/24 15:40 11/28/24 16:00 11/28/24 16:00 11/28/24 16:00 11/28/24 15:05 Narrative Exam GEN: AOx3, able to speak full sentences, lying in bed comfortably HEENT: NC/AC, oral mucosa moist, neck supple CVS: RRR, S1-S2 present, no murmurs appreciated RESP: CTAB GI: Spontaneous guarding, tenderness bilaterally CVA. MSK: Bilateral lower extremity wasting, unable to move lower extremities. SKIN: warm and dry INTERIOR DECORATOR PAINTING: CN II-XII and Sensation grossly intact. Objective Labs 11/28/24 05:25 11/28/24 05:25 Labs: Laboratory Results - last 24 hr 11/28/24 05:25 WBC 6.8 RBC 4.46 L Hgb 10.3 L Hct 32.4 L MCV 73 L MCH 23.1 L MCHC 31.8 RDW Std Deviation 51.4 H Plt Count 281 Neut % (Auto) 84 H Lymph % (Auto) 9 L [place] % (Auto) 4 Eos % (Auto) 2 Baso % (Auto) 0 Neut # (Auto) 5.7 Lymph # (Auto) 0.6 L [place] # (Auto) 0.3 Eos # (Auto) 0.2 Baso # (Auto) 0.0 Immature Gran # (Auto) 0.02 H Absolute Nucleated RBC 0.00 Immature Gran % 0 Nucleated RBC % 0 Sodium 141 Potassium 3.6 Chloride 113 H Carbon Dioxide 17.0 L Anion Gap 11 BUN 22 Creatinine 1.7 H Estim Creat Clear Calc 37.3 L eGFR 54 L BUN/Creatinine Ratio 13 Glucose 96 Calculated Osmolality 284 Calcium 8.5 Phosphorus 3.5 Magnesium 2.0 ABG Interpretation ABG results: 11/25/24 12:02 VBG pH 7.31 L VBG pCO2 26 L VBG pO2 92 H VBG Base Excess -12 L Quality Measures Quality Measures VTE prophylaxis and none Assessment & Plan Assessment Current Active Medications: Generic Name Dose Route Start Last Admin Trade Name Freq PRN Reason Stop Dose Admin Acetaminophen 650 mg 11/22/24 07:56 Acetaminophen 325 Mg Tablet PO 12/22/24 07:55 Q6H PRN Fever >100 or pain (1-3) Albuterol/Ipratropium 3 ml 11/22/24 07:56 Albuterol/Ipratropium (Duoneb) Rt Rachael 3 Ml Nebu INH 12/22/24 07:55 Q4HR PRN SHORTNESS OF BREATH OR WHEEZE Amlodipine Besylate 10 mg 11/22/24 09:00 11/28/24 08:01 Amlodipine Besylate 5 Mg Tablet PO 12/22/24 08:59 10 mg QDAY ARACELY Administration Clonidine 0.1 mg 11/27/24 22:45 11/28/24 08:01 Clonidine Hcl 0.1 Mg Tablet PO 12/27/24 22:44 0.1 mg BID ARACELY Administration Fentanyl Citrate 25 mcg 11/28/24 14:46 Fentanyl Cit Inj 50 Mcg/Ml Amp 2ml IVP 11/28/24 16:47 Q5M PRN PAIN SCALE 1-3 (mild Hydromorphone HCl 1 mg 11/24/24 14:11 11/28/24 12:18 Hydromorphone Inj 2 Mg/Ml Vial IVP 11/29/24 14:10 1 mg Q4HR PRN Administration Pain 7-10 Hydromorphone HCl 0.4 mg 11/28/24 14:46 Hydromorphone Inj 2 Mg/Ml Vial IVP 11/28/24 16:47 Q5M PRN PAIN SCALE 7-10 (Severe Hyoscyamine 0.25 mg 11/23/24 16:39 11/24/24 11:49 Hyoscyamine Sulf 0.125 Mg Tab.Subl PO 12/23/24 16:38 0.25 mg Q4HR PRN Administration ABDOMINAL CRAMPING Ceftriaxone Sodium/Dextrose 1 gm in 50 mls @ 100 mls/hr 11/24/24 14:31 11/28/24 08:03 Rocephin/D5w 1gm Iv Premix IV 12/01/24 14:30 100 mls/hr QDAY ARACELY Administration Sodium Chloride 1,000 mls @ 60 mls/hr 11/28/24 00:00 11/27/24 23:42 Ns IV 11/28/24 16:39 60 mls/hr .[id number] ONE Administration Morphine Sulfate 3 mg 11/28/24 14:46 Morphine Sulf Inj 10 Mg/Ml Vial IVP 11/28/24 16:47 Q5M PRN PAIN SCALE 4-6 (Moderate Ondansetron HCl 4 mg 11/22/24 07:56 11/22/24 08:55 Ondansetron Inj 2 Mg/Ml Inj 2 Ml IV 12/22/24 07:55 4 mg Q6H PRN Administration NAUSEA OR VOMITING Protocol Pantoprazole Sodium 40 mg 11/27/24 09:00 11/28/24 08:02 Pantoprazole Inj 40 Mg Vial IVP 12/27/24 08:59 40 mg QDAY ARACELY Administration Sennosides 1 tab 11/22/24 09:00 11/28/24 08:01 Senna Tablet PO 12/22/24 08:59 1 tab QDAY ARACELY Administration Protocol Eddie Pierce Dixon is a 34-year-old male with a past medical history of spina bifida (wheelchair-bound), 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 Patient will be admitted for treatment and management of bilateral pyelonephritis secondary to infected ureteral stents. Urology, Dr. Morelos consulted and closely following the case. Bilateral pyelonephritis secondary to indwelling bilateral ureteral stents History of bilateral staghorn calculi History of recurrent UTIs Patient presented with 3-day history of bilateral flank pain and dysuria On exam has bilateral flank tenderness Patient's had bilateral ureteral stent placement May 2024 and was following up with urology. CT abdomen/pelvis significant for bilateral extensive staghorn calculi with bilateral ureteral stents. Thickening of the [place] of the pelvicalyceal system with minimal perinephric stranding. Findings most consistent with bilateral pyelonephritis, bilateral ureteritis and cystitis. Scheduled for ureteral stent exchange in 11/28/[address] Morelos Urine culture showed Proteus Mirabella's, multidrug resistance that is sensitive to ceftriaxone. Blood cultures showed NBG x 48 hours Received Zosyn 3.375 g IV every 8 hourly from [11/22 - 11/24] Plan: ? N.p.o. after midnight ? Normal saline 1 L at 60 cc/h to start at midnight - D 5 ceftriaxone 1 g IV daily started on [11/24? ? Continue IV Dilaudid 1 mg every 4 hours as needed. ? Hyoscyamine 0.25 Mg p.o. every 4 hours as needed for renal colic ? For bilateral ureteral stent replacement that will be done inpatient on Tuesday by Dr. Morelos ? Urology, Dr. Morelos consulted and closely following the case. Appreciate recommendations Acute blood loss anemia for investigation Upper GI bleed ruled out Unspecified transfusion reaction Iron deficiency anemia DDx: Angiodysplasia, peptic ulcer disease, iron deficiency, autoimmune, nutritional deficiency, medication side effect Patient's was taking ibuprofen for 3 days prior to admission for his bilateral flank pain. Baseline Hb between 8.6?10. On admission Hb 7.1 During PRBC infusion patient developed mild allergic, non-anaphylactic reaction. Rate of infusion was halved and Benadryl 25 Mg IV x 1. EGD completed on 11/23/2024 findings include: Esophagitis and is few small nonbleeding ulcers at the gastroesophageal junction. Colonoscopy completed on 11/25/2024 findings include: Hemorrhoids on perianal exam. Entire examined colon is normal. Plan: - No source of bleeding identified on both upper and lower endoscopy. ? Will restart patient on oral iron upon discharge. ? Patient may need capsule endoscopy upon discharge. ? GI, Dr. Nava consulted. Appreciate recommendations Acute kidney injury likely postrenal?resolving On admission patient's CR 2.5. Baseline CR 1.4?1.6 Today BUN 22 and CR 1.7 Most likely obstructive due to infected stents. Plan: ? Patient scheduled for stent replacements by urology on 11/28/2024 Primary hypertension On admission BP 173/113. Home medication amlodipine 10 Mg p.o. daily and clonidine 0.1 Mg p.o. daily Plan: ? Continue home medication amlodipine 10 Mg p.o. daily - Increased clonidine to 0.1 Mg p.o. twice daily Spina bifida History of CHECK OUT CLERK shunt Patient is wheelchair-bound at baseline Plan: ? Continue outpatient follow-up Health maintenance: Disposition: IV antibiotics. For ureteral stent exchange today Diet: NPO Lines: pIVs GI Prophylaxis: Pantoprazole 40 Mg IV twice daily Thrombo Prophylaxis: SCDs Code status: FULL CODE Plan of care discussed with Attending Dr. Church and PGY 2 Dr. Sherrell Macedo MD PGY 1 Disclaimer: This note was dictated by speech recognition. Minor errors in manager of clinical may be present due to voice recognition software. Attending Provider Attestation/Addendum I attest that I was physically present for the evaluation, physical examination, lab and imaging review of the patient with the residents. I discussed the case with the residents and agree with the findings and plans of care as documented above. Izzy Church MD
--- NOTE | 2024-11-28 18:42 | PC.NURSE ---
NOTIFIED DR. GOFF OF PATIENT STATING I WANT TO LEAVE , I FEEL BETTER I WONT HAVE A RIDE FOR TOMORROW MY RIDE IS HERE NOW SO I WOULD LIKE TO LEAVE NOW MD ACKNOWLEDGED . STATES HE WILL COME TO PATIENT ROOM
--- NOTE | 2024-11-28 18:56 | ESDS_ITS ---
<Statement entered by Jesus Alberto Wynne MD - 11/29/24 16:31> Patient was seen and examined at bedside, patient was requesting to leave AMA as he mentioned that his auntie is the one responsible for his transportation and tomorrow she will be very busy to, pick him up. We informed the patient that we can speak with the social managers to provide for him transportation however he denied. In review of the patient's chart it seems the patient clinically stable to be discharged if he strictly follow-up and come to the hospital in case of worsening of his symptoms or appearance of new symptoms. Patient was given the instruction as below. - Patient's plan and care discussed with my attending, Dr. Helen Wynne MD Internal Medicine PGY-2 Planned Discharge Date 11/28/24 DS: Providers Provider Date of admission: 11/22/24 07:56 Primary care physician: Vandana Sears NP Admitting Provider: Arnold Frost MD Attending Provider on Admission: Izzy Church MD Consults: 11/22/24 07:43 Consult to Urology Stat Comment: pyelonephritis Consulting Provider: Gisel Morelos 11/22/24 14:19 Consult to Gastroenterology Routine Comment: Possible Upper GI bleed. 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 Patient will be admitted for treatment and management of bilateral pyelonephritis secondary to infected ureteral stents. Urology, Dr. Morelos consulted and closely following the case. For patient's bilateral pyelonephritis, he was treated with Zosyn 3.375 g IV every 8 hourly from 11/22 - 11/24. Then ceftriaxone 1 g IV daily from 11/24 - 11/28. CT abdomen/pelvis significant for bilateral extensive staghorn calculi with bilateral ureteral stents. Thickening of the ogden of the pelvicalyceal system with minimal perinephric stranding. Findings most consistent with bilateral pyelonephritis, bilateral ureteritis and cystitis. With regards to his ureteral stents, urology, Dr. Morelos was consulted. On 11/28/2024 patient had cystoscopic examination removal of bilateral ureteral stents, bilateral retrograde pyelogram bilateral ureteroscopy left stone basketing placement of bilateral ureteral stents under fluoroscopic examination. Bilateral staghorn calculi were visualized, small stone in the bladder and a small left ureteral stone. The left ureteral stone was able to be removed with a basket. For his acute blood loss anemia, he underwent both EGD and colonoscopy. EGD completed on 11/23/2024 findings include: Esophagitis and is few small nonbleeding ulcers at the gastroesophageal junction. Colonoscopy completed on 11/25/2024 findings include: Hemorrhoids on perianal exam. Entire examined colon is normal. On admission his hemoglobin was 7.1 and he was transfused with 2 units PRBCs. He developed a mild allergic reaction during his first PRBC infusion, but no signs of anaphylaxis. His hemoglobin improved to 10.3 upon discharge. For his TRINI, patient was treated with IV fluid hydration during his hospitalization. His creatinine mildly improved. For his hypertension he was treated with his home medication amlodipine 10 Mg p.o. daily and clonidine 0.1 Mg p.o. daily. His SBP's were in the 160s to 170s and clonidine had to be increased to 0.1 Mg p.o. twice daily after which his blood pressure improved. Patient wishes to leave the hospital tonight due to transportation issues. We extensively counseled and encouraged him to stay 1 more night to monitor his morning labs with regards to his hemoglobin and renal function, however patient still opted to leave. All risks were explained and patient understands. Patient's labs are now returning to his baseline. Patient is now clinically stable and fit for discharge to home, however recommend close follow-up with his primary doctor tomorrow for repeat CBC and CMP. Discharge diagnoses: 1. Bilateral pyelonephritis secondary to indwelling bilateral ureteral stents 2. Status post Cystoscopic examination removal of bilateral ureteral stents, bilateral retrograde pyelogram bilateral ureteroscopy left stone basketing placement of bilateral ureteral stents under fluoroscopic examination 3. History of recurrent UTIs 4. Acute blood loss anemia for investigation 5. Upper GI bleed ruled out 6. Unspecified transfusion reaction 7. Iron deficiency anemia 8. Acute kidney injury likely postrenal?resolving 9. Primary hypertension 10. Spina bifida 11. 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 We have started you on an antibiotic cephalexin. Take 1 tablet twice a day for the next 3 days to complete the course. ? We have increased your clonidine to 1 tablet twice a day. - We have started you on a medication for your gastric ulcer, Omeprazole. Take one tablet once a day ? Continue the rest of your home medication as before. ? Follow-up with your primary care doctor within 2 days of discharge for your repeat CBC and renal panel to monitor your kidneys and blood count. ? Follow-up with urology, Dr. Morelos within 2-4 weeks of discharge. ? If you experience any new, worsening or persistent symptoms either call your primary doctor, or dial 911 or present to the emergency department. - Especially if you experience any vomiting, worsening pain not controlled by hydromorphone, hematuria or dysuria come immediately to the emergency department We are grateful to be able to participate in Mr. Dixon's care. We wish him the best. Plan of care discussed with Attending Dr. Church and PGY 2 Dr. Sherrell Macedo MD PGY 1 Disclaimer: This note was dictated by speech recognition. Minor errors in operations scheduler may be present due to voice recognition software. Time Spent with Patient Time attestation: Total time spent providing and/or coordinating discharge services: Time spent: Less than 30 minutes Exam Vital Signs Temp Pulse Resp BP Pulse Ox O2 Del Method O2 Flow Rate 97.4 F 97 18 150/100 H 98 Room Air 4 11/28/24 17:00 11/28/24 17:00 11/28/24 17:00 11/28/24 17:00 11/28/24 17:00 11/28/24 16:00 11/28/24 15:05 Narrative Exam GEN: AOx3, able to speak full sentences, lying in bed comfortably HEENT: NC/AC, oral mucosa moist, neck supple CVS: RRR, S1-S2 present, no murmurs appreciated RESP: CTAB GI: Spontaneous guarding, tenderness bilaterally CVA. MSK: Bilateral lower extremity wasting, unable to move lower extremities. SKIN: warm and dry ROUSTABOUT CREW: CN II-XII and Sensation grossly intact. Discharge Plan Plan Patient Disposition: HOME (Self Care) Care Plan Goals: ? We have started you on an antibiotic cephalexin. Take 1 tablet twice a day for the next 3 days to complete the course. ? We have increased your clonidine to 1 tablet twice a day. - We have started you on a medication for your gastric ulcer, Omeprazole. Take one tablet once a day ? Continue the rest of your home medication as before. ? Follow-up with your primary care doctor within 2 days of discharge for your repeat CBC and renal panel to monitor your kidneys and blood count. ? Follow-up with urology, Dr. Morelos within 2-4 weeks of discharge. ? If you experience any new, worsening or persistent symptoms either call your primary doctor, or dial 911 or present to the emergency department. - Especially if you experience any vomiting, worsening pain not controlled by hydromorphone, hematuria or dysuria come immediately to the emergency department. Prescriptions/Referrals Prescriptions/Med Rec: New clonidine HCl 0.1 mg Tablet 0.1 mg PO BID 30 Days Qty: 60 0RF cephalexin 500 mg capsule 500 mg PO BID 3 Days Qty: 6 0RF omeprazole 20 mg capsule,delayed release(DR/EC) 20 mg PO QDAY 30 Days Qty: 30 0RF Continued amlodipine 10 mg tablet 10 mg PO DAILY Patient Comments: TAKE 1 TABLET BY MOUTH EVERY DAY hydromorphone 2 mg tablet 2 mg PO TID PRN (Reason: Pain) Patient Comments: TAKE 1 TABLET BY MOUTH THREE TIMES A DAY NEEDED Rx Instructions: kidney pain ferrous sulfate 325 mg (65 mg iron) tablet 325 mg PO Q OTHER DAY Qty: 15 0RF Discontinued clonidine HCl 0.1 mg tablet 0.1 mg PO DAILY Referrals: Vandana Sears NP [Primary Care Provider] - Patient/Caregiver Discharge Instructions Print Language: Greek Stand Alone Forms: Leyla Award Info., Patient Portal Info Letter Discharge Order Discharge Orders: Discharge (Routine); Ordered 11/28/24 Ordered By: Jj Macedo Quality Discharge Quality Measures VTE prophylaxis Attestestation Attestation I attest that I was physically present for the evaluation, physical examination, lab and imaging review of the patient with the residents. I discussed the case with the residents and agree with the findings and plans of care as documented above. Izzy Church MD
== END 2024-11-28 19:39 | disposition home or self-care (01) | DRG 466 ==
LOC: SERX 08:03 → SERHOLD 08:21 → S3NX 16:34
PROVIDERS: Physician Assistant; Specialist; Urology; Admitting Provider Student in an Organized Health Care Education/Training Program; Emergency Provider Emergency Medicine; PCP Nurse Practitioner Family; Visit Provider Student in an Organized Health Care Education/Training Program
PROC: (CPT 43239; principal; 2024-11-23 15:00)
PROC: 0DJD8ZZ Inspection of Lower Intestinal Tract, Via Natural or Artificial Opening Endoscopic (ICD-10-PCS; CPT 45378; principal; 2024-11-25 12:30)
PROC: 0TJB8ZZ Inspection of Bladder, Via Natural or Artificial Opening Endoscopic (ICD-10-PCS; CPT 52000; principal; 2024-11-28 13:45)
DX: T83.592A Infection and inflammatory reaction due to indwelling ureteral stent, initial encounter (principal); N13.6 Pyonephrosis; N20.0 Calculus of kidney; Q05.9 Spina bifida, unspecified; I10 Essential (primary) hypertension; K20.91 Esophagitis, unspecified with bleeding; K25.4 Chronic or unspecified gastric ulcer with hemorrhage; K29.70 Gastritis, unspecified, without bleeding; D50.9 Iron deficiency anemia, unspecified; D62 Acute posthemorrhagic anemia; N17.9 Acute kidney failure, unspecified; E87.3 Alkalosis; N30.90 Cystitis, unspecified without hematuria; N12 Tubulo-interstitial nephritis, not specified as acute or chronic; K64.8 Other hemorrhoids; Z87.442 Personal history of urinary calculi; Z87.440 Personal history of urinary (tract) infections; N20.2 Calculus of kidney with calculus of ureter; Z99.3 Dependence on wheelchair; B96.4 Proteus (mirabilis) (morganii) as the cause of diseases classified elsewhere; T80.92XA Unspecified transfusion reaction, initial encounter; Y83.1 Surgical operation with implant of artificial internal device as the cause of abnormal reaction of the patient, or of later complication, without mention of misadventure at the time of the procedure; Z16.24 Resistance to multiple antibiotics; Z59.82 Transportation insecurity; Z79.899 Other long term (current) drug therapy; Z98.2 Presence of cerebrospinal fluid drainage device
CPT/HCPCS: 36415; 36430; 74176; 74420; 80048; 80053; 81001; 82270; 82803; 83605; 83690; 83735; 84100; 84145; 85014; 85018; 85025; 86850; 86900; 86901; 86923; 87040; 87077; 87081; 87086; 87186; 93225; 96365; 96366; 96367; 96372; 96375; 99285; A4217; A4649; C1769; C1889; C1894; C2617; J0360; J0696; J1171; J1200; J1580; J2250; J2270; J2405; J2470; J2543; J2704; J3010; J3480; J3490; J7030; J7040; P9016; A9270

== ENCOUNTER 2025-01-13 22:18 | Inpatient (IN) | payer MEDICAID, SELFPAY ==
--- NOTE | 2025-01-13 22:18 | EDNOTE_ITS ---
ED Abdominal Pain RME/HPI General Chief Complaint: Abdominal Pain Stated complaint: ABD PAIN Time seen by provider: 01/13/25 22:33 Arrival date/time: 01/13/25 22:18 RME / HPI RME / HPI narrative: This section includes all my notes and documentations, including HPI, PE, and ED course. 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 Had fever yesterday. Gross hematuria today. No nausea, vomiting, diarrhea. No other complaints. ROS: All negative except as documented in HPI. Physical Exam: General: Alert and oriented. Appears uncomfortable. Eyes: Conjunctivae and lids clear. ENT: No nasal congestion. Neck: Supple. Heart: RRR. Lungs: No respiratory distress. Good air movement. No rhonchi, wheezing, rales. Abdomen: Soft with mild tenderness, difficult to localize. Normal bowel sounds. No distension. No rebound or guarding. Back: No CVA tenderness. Skin: Warm and dry. Neuro: Alert and oriented X 3. I reviewed EMS notes. I reviewed all diagnostic test results. My interpretation of the chest x-ray is NAD. My review of the US gallbladder is gallbladder sludge. My review of the CT abdomen pelvis report is pyelonephritis. Blood tests remarkable for Potassium 3.1. Creatinine 2.0, CRP 5.0, and ESR 94. UA showed positive leukocyte esterase, 528 RBCs, 746 WBCs, and 4+ bacteria. Influenza negative. At this point, diagnoses include: Pyelonephritis, Acute kidney injury superimposed on CKD, Hypokalemia Treatment here included IV fluid, Zofran, Toradol, morphine, Rocephin, and vancomycin. Patient felt slightly better. I discussed the case with our hospitalist.? About the presentation and exam and diagnostics and treatments here.? And need of further care in the hospital.? Declined to accept the patient without urology consult. Urology consult is pending. Patient is signed out to Dr. Art at 0600 on 01/14/2025 pending urology consultation. Torsten Salinas MD Related Data Home Medications ?Medication ?Instructions ?Recorded ?Confirmed amlodipine 10 mg tablet 10 mg PO DAILY 06/06/24 0508/18 hydromorphone 2 mg tablet 2 mg PO TID PRN Pain 4 11/22/24 Previous Rx's ?Medication ?Instructions ?Recorded ferrous sulfate 325 mg (65 mg 325 mg PO Q OTHER DAY #1 5 tabs 06/16/24 iron) tablet Allergies Allergy/AdvReac Type Severity Reaction Status Date / Time latex Allergy Severe RASH Verified 10/08/24 11:30 Review of Systems Review of Systems Systems Reviewed: All systems reviewed, normal except as documented ED Exam Narrative Physical exam: As noted in HPI. Course Quality Measures none Orders Category Date Time Status Bedside Influenza A&B Antigen Test NOW Care 01/13/25 22:25 Completed Saline [Insert IV] NOW Care 01/13/25 22:25 Active Straight [In and Out Catheter] X1 Care 01/13/25 22:[address] abdomen pelvis wo con Stat Exams 01/13/25 22:26 Completed US gall bladder Stat Exams 01/13/25 22:26 Completed XR chest 1V portable Stat Exams 01/13/25 22:29 Completed Amylase Stat Lab 01/13/25 22:53 Completed Bilirubin,Direct Stat Lab 01/13/25 22:53 Completed Blood Culture (Lab) Stat Lab 01/13/25 22:48 Received CBC Stat Lab 01/13/25 22:53 Completed CMP [Comprehensive Metabolic Panel] Stat Lab 01/13/25 22:53 Completed CRP [C-Reactive Protein] Stat Lab 01/13/25 22:53 Completed ESR [Sed Rate (ESR)] Stat Lab 01/13/25 22:53 Completed Lactate (Lactic Acid) Stat Lab 01/13/25 22:53 Completed Lipase Stat Lab 01/13/25 22:53 Completed Magnesium Stat Lab 01/13/25 22:53 Completed Procalcitonin Stat Lab 01/13/25 22:53 Completed UA, C/S IF [Urinalysis, C/S if Indicated] Stat Lab 01/14/25 00:16 Completed Urine Culture Stat Lab 01/14/25 00:16 Received KCL 10% Liq UDC 15 ML Med 01/14/25 00:26 Discontinued 40 meq PO X1 ONE Ketorolac Inj [Toradol Inj] Med 01/13/25 22:25 Discontinued 30 mg IVP X1 ONE Morphine Inj Med 01/13/25 22:25 Discontinued 4 mg IVP X1 ONE Morphine Inj Med 01/13/25 23:57 Discontinued 4 mg IVP X1 ONE Morphine Inj Med 01/14/25 04:04 Discontinued 4 mg IVP X1 ONE Ondansetron Inj [Zofran Inj] Med 01/13/25 22:25 Discontinued 4 mg IVP X1 ONE Ondansetron Inj [Zofran Inj] Med 01/14/25 04:04 Discontinued 4 mg IVP X1 ONE Sodium Chloride 0.9% 1000 ml [Ns] 1,000 ml Med 01/13/25 22:25 Discontinued IV 999 mls/hr Sodium Chloride 0.9% 1000 ml [Ns] 1,000 ml Med 01/14/25 04:04 Discontinued IV 999 mls/hr Vancomycin Inj 1,000 mg Med 01/14/25 00:46 Discontinued Sodium Chloride 0.9% 500 ml [Ns] 500 ml IV X1 cefTRIAXone/D5w 1gm IV premix [Rocephin/D5w 1gm IV Med 01/14/25 00:41 Discontinued premix] 1 g in 50 ml IV X1 Vital Signs Vital signs: Vital Signs Temperature 98.6 F 01/13/25 22:26 Pulse Rate 83 01/13/25 22:26 Respiratory Rate 18 01/13/25 22:26 Blood Pressure 150/90 H 01/13/25 22:26 Pulse Oximetry (%) 99 01/13/25 22:26 Oxygen Delivery Method Room Air 01/13/25 22:26 Abdominal Pain MDM MDM Narrative MDM Narrative:: 35yo male with a history of spina bifida (wheelchair-bound), 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 Had fever yesterday. Gross hematuria today. No nausea, vomiting, diarrhea. No other complaints. Patient data External records reviewed:: 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 My interpretation of the chest x-ray is NAD. My review of the US gallbladder is gallbladder sludge. My review of the CT abdomen pelvis report is pyelonephritis. Blood tests remarkable for Potassium 3.1. Creatinine 2.0, CRP 5.0, and ESR 94. UA showed positive leukocyte esterase, 528 RBCs, 746 WBCs, and 4+ bacteria. Influenza negative. Medications / Prescriptions Medications or Prescriptions considered but not ordered:: none Medication administrations:: Medication Administration History Discontinued Medications Sodium Chloride (Ns) 1,000 mls @ 999 mls/hr IV .Q1H1M ONE Stop: 01/13/25 23:25 Last Infusion: 01/13/25 23:59 Dose: Infused Documented By: Admin: 01/13/25 22:39 Dose: 999 mls/hr Documented By: JENELLE Ceftriaxone Sodium/Dextrose (Rocephin/D5w 1gm Iv Premix) 1 g in 50 mls @ 100 mls/hr IV X1 ONE Stop: 01/14/25 01:10 Last Infusion: 01/14/25 01:27 Dose: Infused Documented By: Admin: 01/14/25 00:54 Dose: 100 mls/hr Documented By: SAIGE Vancomycin HCl 1,000 mg/ (Sodium Chloride) 500 mls @ 150 mls/hr IV X1 ONE Stop: 01/14/25 04:05 Last Admin: 01/14/25 01:33 Dose: 150 mls/hr Documented By: JENELLE Sodium Chloride (Ns) 1,000 mls @ 999 mls/hr IV .Q1H1M ONE Stop: 01/14/25 05:04 Last Admin: 01/14/25 04:16 Dose: 999 mls/hr Documented By: JENELLE Ketorolac Tromethamine (Ketorolac Inj 30 Mg/Ml Vial) 30 mg IVP X1 ONE Stop: 01/13/25 22:26 Last Admin: 01/13/25 22:38 Dose: 30 mg Documented By: JENELLE Morphine Sulfate (Morphine Sulf Inj 10 Mg/Ml Vial) 4 mg IVP X1 ONE Stop: 01/13/25 22:26 Last Admin: 01/13/25 22:38 Dose: 4 mg Documented By: DT Morphine Sulfate (Morphine Sulf Inj 10 Mg/Ml Vial) 4 mg IVP X1 ONE Stop: 01/13/25 23:58 Last Admin: 01/14/25 00:06 Dose: 4 mg Documented By: DT Morphine Sulfate (Morphine Sulf Inj 10 Mg/Ml Vial) 4 mg IVP X1 ONE Stop: 01/14/25 04:05 Last Admin: 01/14/25 04:13 Dose: 4 mg Documented By: DT Ondansetron HCl (Ondansetron Inj 2 Mg/Ml Inj 2 Ml) 4 mg IVP X1 ONE; Protocol Stop: 01/13/25 22:26 Last Admin: 01/13/25 22:39 Dose: 4 mg Documented By: DT Ondansetron HCl (Ondansetron Inj 2 Mg/Ml Inj 2 Ml) 4 mg IVP X1 ONE; Protocol Stop: 01/14/25 04:05 Last Admin: 01/14/25 04:13 Dose: 4 mg Documented By: DT Potassium Chloride (Potassium Chloride 10% 20 Meq/15 Ml Udc) 40 meq PO X1 ONE Stop: 01/14/25 00:27 Last Admin: 01/14/25 00:42 Dose: 40 meq Documented By: AC IV fluid, Zofran, Toradol, Potassium, morphine, Dilaudid Rocephin, and vancomycin. Consultations Consultation(s) initiated? (list below): Yes Consultation #1 (Physician, Specialty, Details): I discussed the case with our hospitalist.? About the presentation and exam and diagnostics and treatments here.? And need of further care in the hospital.? Declined to accept the patient without urology consult. Diagnosis Differential diagnosis abdominal pain: acute appendicitis, calculus of kidney, constipation, diverticulitis, endometriosis, gastroenteritis, pancreatitis, small bowel obstruction and other (GERD, gastritis, PUD, biliary colic.) Most likely diagnosis given after review of the tests above:: Intractable abdominal pain and intractable vomiting of unclear etiology. Admission Indicated Admission indicated?: not indicated Explain why admission is indicated or not indicated:: Patient is signed out to Dr. Art at 0600 on 01/14/2025 pending urology consultation. Admission Request Was there a request for admission?: No Disposition Plan Disposition Plan: other (specify) (Patient is signed out to Dr. Art at 0600 on 01/14/2025 pending urology consultation.) Discharge Plan Prescriptions/Referrals Prescriptions/Med Rec: No Action amlodipine 10 mg tablet 10 mg PO DAILY Patient Comments: TAKE 1 TABLET BY MOUTH EVERY DAY hydromorphone 2 mg tablet 2 mg PO TID PRN (Reason: Pain) Patient Comments: TAKE 1 TABLET BY MOUTH THREE TIMES A DAY NEEDED Rx Instructions: kidney pain ferrous sulfate 325 mg (65 mg iron) tablet 325 mg PO Q OTHER DAY Qty: 15 0RF Referrals: Vandana Sears, SPECIAL SERVICE REPRESENTATIVE [Primary Care Provider] - In 1 week Problem List Clinical Impression: Pyelonephritis, Acute kidney injury superimposed on CKD, Hypokalemia Patient/Caregiver Discharge Instructions Print Language: Palestinian
[2025-01-13 22:26] VITALS: BP 150/90; PULSE 83; RESP 18; TEMP 37; O2SAT 99; BMI 41.1
--- NOTE | 2025-01-13 22:26 | XR_ITS ---
Examination: Abdomen sonogram, Limited Date and time of exam: January 13, 2025 11:40 PM INDICATIONS: Abdominal pain beginning 4 months ago Technique: Real-time shi scale transabdominal sonographic images of the upper abdomen obtained. Findings: Gallbladder sludge Gallbladder wall 0.2 cm Common bile duct 0.3 cm Pancreas obscured by bowel gas Liver 14.2 cm fatty infiltration Normal hepatopedal portal venous flow Patent IVC IMPRESSION: Gallbladder sludge, negative for cholelithiasis, negative for cholecystitis
--- NOTE | 2025-01-13 22:26 | XR_ITS ---
Examination: CT abdomen and pelvis without contrast. Coronal 3-D reconstructions. Sagittal 2-D reconstructions. Date and time of exam:January 13, 2025 11:32 PM INDICATIONS: Abdominal pain beginning 4 days ago COMPARISON: November 22, 2024 INDICATIONS: Abdominal pain and flank pain beginning 4 days ago CTDI: vol (mGy): 5.48 DLP: (mGycm): 261 Technique: Axial images of the abdomen have been obtained, 3 mm slice thickness Intravenous contrast material has not been administered. Low dose protocols were performed. One or more of the following dose reduction techniques were used; automated exposure control, adjustment of the mA and/or KV according to patient size, use of iterative reconstruction technique. Findings: Lesions No gallstones No pancreatic mass Large bilateral staghorn calculi again noted with edematous appearing kidneys Bilateral ureteral stents satisfactory position No bowel obstruction Irregular thickening of the urinary bladder wall Large soft tissue defect extending posterior to the rectum noted on prior studies Fluid collection posterior to the lower lumbar spine in the soft tissue again noted IMPRESSION: Multiple large bilateral staghorn calculi with edematous appearing kidneys and thickened urinary bladder wall The appearance remains consistent with pyelonephritis, vesicoureteral reflux, cystitis
--- NOTE | 2025-01-13 22:29 | XR_ITS ---
Examination: AP chest single view Technique one AP portable semiupright chest single view Date and time: January 13, 2025, 10:54 PM INDICATIONS: Abdominal pain and fever beginning yesterday FINDINGS: Normal heart size Reduced inspiratory effort. No pneumonia or pulmonary edema IMPRESSION: No active disease
[2025-01-13] MEDS: KETOROLAC INJ 30 MG/ML VIAL IVP (22:38)
[2025-01-13] MEDS: MORPHINE SULF INJ 10 MG/ML VIAL 4 MG IVP (22:38)
[2025-01-13] MEDS: SODIUM CHLORIDE 0.9% 1000 ML 1,000 ML 999 ML IV (22:39)
[2025-01-13] MEDS: ONDANSETRON INJ 2 MG/ML INJ 2 ML 4 MG IVP (22:39)
[2025-01-13 22:40] VITALS: PULSE 92; O2SAT 98
[2025-01-13 22:43] VITALS: BP 164/112; PULSE 88; RESP 14; O2SAT 99
[2025-01-13 23:08] VITALS: TEMP 37
[2025-01-13 23:14] LABS: Lactate (Lactic Acid) 1.1 mMol/L (0.4-2.0)
[2025-01-13 23:16] LABS: Basophils % (Auto) 1 % (0-2.5); Eosinophils # (Auto) 0.1 Thou/mm3 (0.0-0.5); Eosinophils % (Auto) 2 % (0-10); Hemoglobin 9.4 g/dL (13.5-16.0); Immature Granulocytes % (Auto) 0 % (0-0); Immature Granulocytes Auto 0.03 Thou/mm3 (0.00-0.00); Lymphocytes % (Auto) 14 % (10-50); Mean Corpuscular HGB Conc 32.4 g/dl (31.0-37.0); Mean Corpuscular Hemoglobin 24.2 pg (25.0-35.0); Mean Corpuscular Volume 75 fL (80-100); Monocytes # (Auto) 0.5 Thou/mm3 (0.0-0.8); Monocytes % (Auto) 7 % (0-12); Neutrophils # (Auto) 5.8 Thou/mm3 (1.8-7.7); Neutrophils % (Auto) 77 % (37-80); Nucleated Red Blood Cell % 0 /100 WBC (0); Platelet Count 442 Thou/mm3 (140-440); RDW Standard Deviation 63.2 fL (35.1-43.9); Red Blood Count 3.88 Miln/mm3 (4.50-5.90); White Blood Count 7.5 Thou/mm3 (3.8-10.6)
[2025-01-13 23:25] VITALS: BP 143/100; PULSE 83; RESP 17; TEMP 36.9; O2SAT 99
[2025-01-13 23:31] LABS: Sed Rate (ESR) 94 mm/hr (0-15)
[2025-01-14] VITALS (8 sets, daily range): BP systolic 98–162; BP diastolic 65–113; PULSE 76–99; RESP 14–99; TEMP 36.2–37; O2SAT 96–100; BMI 31.7
[2025-01-14 00:03] LABS: Alanine Aminotransferase < 7 U/L (10-49); Albumin, Serum 3.5 gm/dL (3.5-5.0); Albumin/Globulin Ratio 1.3 (1.2-2.2); Alkaline Phosphatase 84 U/L (46-116); Amylase 61 U/L (30-118); Anion Gap 10 (7-16); Aspartate Amino Transferase < 8 U/L (0-34); BUN/Creatinine Ratio 15 Ratio (12-20); Bilirubin,Direct < 0.1 mg/dL (0.0-0.3); Bilirubin,Total 0.2 mg/dL (0.3-1.2); Blood Urea Nitrogen 30 mg/dL (9-23); Calcium 8.2 mg/dL (8.3-10.6); Calcium (Corrected) 8.6 mg/dL (8.5-10.1); Carbon Dioxide 22.5 mMol/L (20.0-31.0); Chloride 107 mMol/L (98-107); Estimated Creatinine Clearance 36.7 mL/min (>60); Globulin 2.8 gm/dL (2.3-3.5); Glucose 92 mg/dL (74-106); Lipase 32 U/L (12-53); Osmolality,Calculated 283 (275-295); Potassium 3.1 mMol/L (3.4-5.1); Procalcitonin 0.12 ng/ml (0.0-0.49); Sodium 139 mMol/L (136-145); Total Protein 6.3 gm/dL (5.7-8.2); eGFR 44 See Note
[2025-01-14] MEDS: MORPHINE SULF INJ 10 MG/ML VIAL 4 MG IVP ×3 (00:06→07:42)
[2025-01-14 00:20] LABS: Collection Type, Urine Clean Catch; Squamous Epithelial Cell,Urine 0 /hpf (0-5)
[2025-01-14 00:30] LABS: Bacteria,Urine 4+; Bilirubin,Urine Negative (Negative); Blood,Urine 3+ (Negative); Clarity,Urine Turbid (Clear/Hazy); Color,Urine Orange (Lt Yel-Yel); Culture Indicated,Urine Yes; Glucose, Urine Negative (Negative); Ketones,Urine Negative (Negative); Leukocyte Esterase,Urine Positive (Negative); Nitrite,Urine Negative (Negative); PH,Urine 7.5 (5.0-7.0); Protein,Urine 3+ (Neg - Trace); RBC,Urine 528 /hpf (0-3); Specific Gravity,Urine 1.012 (1.001-1.035); Urobilinogen,Urine Negative mg/dL (0.0-1.0); WBC,Urine 746 /hpf (0-5)
[2025-01-14] MEDS: POTASSIUM CHLORIDE 10% 20 MEQ/15 ML UDC 40 MEQ PO (00:42)
[2025-01-14] MEDS: cefTRIAXone/D5w 1gm IV premix 1 G/50 ML BAG IV (00:54)
[2025-01-14] MEDS: Vancomycin Inj 1,000 MG in SODIUM CHLORIDE 0.9% 500 ML 500 ML 150 MG IV (01:33)
[2025-01-14] MEDS: ONDANSETRON INJ 2 MG/ML INJ 2 ML 4 MG IVP ×2 (04:13→07:42)
[2025-01-14] MEDS: SODIUM CHLORIDE 0.9% 1000 ML 1,000 ML 999 ML IV (04:16)
[2025-01-14] MEDS: FAMOTIDINE INJ 10 MG/ML VIAL 2 ML 20 MG IVP (05:49)
[2025-01-14] MEDS: PANTOPRAZOLE INJ 40 MG VIAL IVP (05:49)
--- NOTE | 2025-01-14 06:37 | PD.EDADDENDU ---
Emergency Room Addendum Addendum Narrative: 0600: Care assumed from Dr. Salinas, the previous shift emergency physician. Past medical, surgical, social and family history reviewed. Vitals and home medications reviewed. I will assume the care of the patient at this time, pending urology consult. Please refer to the emergency department record for history and examination from initial visit.? Physical exam by me shows patient under no acute distress at this time. 1014: Discussed test HPI, PMHx, lab, radiology results and/or management with resident working with the hospitalist. Will admit for further evaluation and management. Accepts patient for admission. Diagnoses: -Pyelonephritis -Acute kidney injury superimposed on CKD -Hypokalemia -Cystitis -Bilateral kidney stones Results Objective Laboratory: Laboratory Last Values WBC 7.5 Thou/mm3 (3.8-10.6) 01/13/25 22:53 RBC 3.88 Miln/mm3 (4.50-5.90) L 01/13/25 22:53 Hgb 9.4 g/dL (13.5-16.0) L 01/13/25 22:53 Hct 29.0 % (41.0-53.0) L 01/13/25 22:53 MCV 75 fL (80-100) L 01/13/25 22:53 MCH 24.2 pg (25.0-35.0) L 01/13/25 22:53 MCHC 32.4 g/dl (31.0-37.0) 01/13/25 22:53 RDW Std Deviation 63.2 fL (35.1-43.9) H 01/13/25 22:53 Plt Count 442 Thou/mm3 (140-440) H 01/13/25 22:53 Neut % (Auto) 77 % (37-80) 01/13/25 22:53 Lymph % (Auto) 14 % (10-50) 01/13/25 22:53 [place] % (Auto) 7 % (0-12) 01/13/25 22:53 Eos % (Auto) 2 % (0-10) 01/13/25 22:53 Baso % (Auto) 1 % (0-2.5) 01/13/25 22:53 Neut # (Auto) 5.8 Thou/mm3 (1.8-7.7) 01/13/25 22:53 Lymph # (Auto) 1.0 Thou/mm3 (1.0-4.8) 01/13/25 22:53 [place] # (Auto) 0.5 Thou/mm3 (0.0-0.8) 01/13/25 22:53 Eos # (Auto) 0.1 Thou/mm3 (0.0-0.5) 01/13/25 22:53 Baso # (Auto) 0.0 Thou/mm3 (0.0-0.2) 01/13/25 22:53 Immature Gran # (Auto) 0.03 Thou/mm3 (0.00-0.00) H 01/13/25 22:53 Absolute Nucleated RBC 0.00 Thou/mm3 (0.00-0.00) 01/13/25:53 Immature Gran % 0 % (0-0) 01/13/25 22:53 Nucleated RBC % 0 /100 WBC (0) 01/13/25 22:53 ESR 94 mm/hr (0-15) H 01/13/25 22:53 Sodium 139 mMol/L (136-145) 01/13/25 22:53 Potassium 3.1 mMol/L (3.4-5.1) L 01/13/25 22:53 Chloride 107 mMol/L (98-107) 01/13/25 22:53 Carbon Dioxide 22.5 mMol/L (20.0-31.0) 01/13/25 22:53 Anion Gap 10 (7-16) 01/13/25 22:53 BUN 30 mg/dL (9-23) H 01/13/25 22:53 Creatinine 2.0 mg/dL (0.6-1.3) H 01/13/25 22:53 Estim Creat Clear Calc 36.7 mL/min (>60) L 01/13/25 22:53 eGFR 44 See Note (60-) L 01/13/25:53 BUN/Creatinine Ratio 15 Ratio (12-20) 01/13/25 22:53 Glucose 92 mg/dL (74-106) 01/13/25 22:53 Calculated Osmolality 283 (275-295) 01/13/25 22:53 Lactic Acid 1.1 mMol/L (0.4-2.0) 01/13/25 22:53 Calcium 8.2 mg/dL (8.3-10.6) L 01/13/25 22:53 Corrected Calcium 8.6 mg/dL (8.5-10.1) 01/13/25 22:53 Magnesium 2.0 mg/dL (1.6-2.6) 01/13/25 22:53 Total Bilirubin 0.2 mg/dL (0.3-1.2) L 01/13/25 22:53 Direct Bilirubin < 0.1 mg/dL (0.0-0.3) 01/13/25 22:53 AST < 8 U/L (0-34) 01/13/25 22:53 ALT < 7 U/L (10-49) L 01/13/25 22:53 Alkaline Phosphatase 84 U/L (46-116) 01/13/25 22:53 C-Reactive Prot, Quant 5.0 mg/dL (0.0-0.9) H 01/13/25 22:53 Total Protein 6.3 gm/dL (5.7-8.2) 01/13/25 22:53 Albumin 3.5 gm/dL (3.5-5.0) 01/13/25 22:53 Globulin 2.8 gm/dL (2.3-3.5) 01/13/25 22:53 Albumin/Globulin Ratio 1.3 (1.2-2.2) 01/13/25 22:53 Amylase 61 U/L (30-118) 01/13/25 22:53 Lipase 32 U/L (12-53) 01/13/25 22:53 Procalcitonin 0.12 ng/ml (0.0-0.49) 01/13/25 22:53 Ur Collection Type Clean Catch 01/14/25 00:16 Urine Color [place] (Lt Yel-Yel) A 01/14/25 00:16 Urine Clarity Turbid (Clear/Hazy) A 01/14/25 00:16 Urine pH 7.5 (5.0-7.0) H 01/14/25 00:16 Ur Specific [place] 1.012 (1.001-1.035) 01/14/25 00:16 Urine Protein 3+ (Neg - Trace) A 01/14/25 00:16 Urine Glucose (UA) Negative (Negative) 01/14/25 00:16 Urine Ketones Negative (Negative) 01/14/25 00:16 Urine Blood 3+ (Negative) A 01/14/25 00:16 Urine Nitrite Negative (Negative) 01/14/25 00:16 Urine Bilirubin Negative (Negative) 01/14/25 00:16 Urine Urobilinogen (Auto) Negative mg/dL (0.0-1.0) 01/14/25 00:16 Ur Leukocyte Esterase Positive (Negative) 01/14/25 00:16 Urine RBC 528 /hpf (0-3) H 01/14/25 00:16 Urine WBC 746 /hpf (0-5) H 01/14/25 00:16 Ur Squamous Epith Cells 0 /hpf (0-5) 01/14/25 00:16 Urine Bacteria 4+ (None) A 01/14/25 00:16 Ur Culture Indicated? Yes 01/14/25 00:16 Imaging: Procedure(s): XR chest 1V portable Accession Number(s): [id number] cc: Torsten Salinas MD; Hao Palafox MD; Vandana Sears NP~ Examination: AP chest single view Technique one AP portable semiupright chest single view Date and time: January 13, 2025, 10:54 PM INDICATIONS: Abdominal pain and fever beginning yesterday FINDINGS: Normal heart size Reduced inspiratory effort. No pneumonia or pulmonary edema IMPRESSION: No active disease Dictated By: Hao Palafox MD Procedure(s): US gall bladder Accession Number(s): [id number] cc: Torsten Salinas MD; Hao Palafox MD; Vandana Sears NP~ Examination: Abdomen sonogram, Limited Date and time of exam: January 13, 2025 11:40 PM INDICATIONS: Abdominal pain beginning 4 months ago Technique: Real-time shi scale transabdominal sonographic images of the upper abdomen obtained. Findings: Gallbladder sludge Gallbladder wall 0.2 cm Common bile duct 0.3 cm Pancreas obscured by bowel gas Liver 14.2 cm fatty infiltration Normal hepatopedal portal venous flow Patent IVC IMPRESSION: Gallbladder sludge, negative for cholelithiasis, negative for cholecystitis Dictated By: Hao Palafox MD Procedure(s): CT abdomen pelvis [facility] Accession Number(s): [id number] cc: Torsten Salinas MD; Hao Palafox MD; Vandana Sears NP~ Examination: CT abdomen and pelvis without contrast. Coronal 3-D reconstructions. Sagittal 2-D reconstructions. Date and time of exam:January 13, 2025 11:32 PM INDICATIONS: Abdominal pain beginning 4 days ago COMPARISON: November 22, 2024 INDICATIONS: Abdominal pain and flank pain beginning 4 days ago CTDI: vol (mGy): 5.48 DLP: (mGycm): 261 Technique: Axial images of the abdomen have been obtained, 3 mm slice thickness Intravenous contrast material has not been administered. Low dose protocols were performed. One or more of the following dose reduction techniques were used; automated exposure control, adjustment of the mA and/or KV according to patient size, use of iterative reconstruction technique. Findings: Lesions No gallstones No pancreatic mass Large bilateral staghorn calculi again noted with edematous appearing kidneys Bilateral ureteral stents satisfactory position No bowel obstruction Irregular thickening of the urinary bladder wall Large soft tissue defect extending posterior to the rectum noted on prior studies Fluid collection posterior to the lower lumbar spine in the soft tissue again noted IMPRESSION: Multiple large bilateral staghorn calculi with edematous appearing kidneys and thickened urinary bladder wall The appearance remains consistent with pyelonephritis, vesicoureteral reflux, cystitis Dictated By: Hao Palafox MD
[2025-01-14] MEDS: HYDROmorphone INJ 2 MG/ML VIAL 0.5 MG IVP (10:19)
[2025-01-14] MEDS: RINGERS LACTATED 1000 ML 1,000 ML 75 ML IV (10:30)
[2025-01-14] MEDS: PIPER/TAZO 3.375 GM PREMIX 3.375 GM/50 ML BAG IV ×2 (11:03→21:44)
--- NOTE | 2025-01-14 12:38 | PC.NURSE ---
PATIENT ALERT AND ORIENTED X3, ABLE TO COMMUNICATE HIS NEEDS.
[2025-01-14] MEDS: oxyCODONE/APAP 5/325 TABLET 1 TAB PO (13:07)
--- NOTE | 2025-01-14 13:16 | PC.NURSE ---
PATIENT REFUSED SCDS.
--- NOTE | 2025-01-14 13:40 | PC.NURSE ---
DR. JARVIS MADE AWARE PT'S BP LEFT UPPER ARM 167/111 AND RIGHT UPPER ARM 162/113, MAP OF 129 AND MED RECONCILIATION COMPLETED. HE WILL REVIEW CHART AND PUT IN ORDERS.
[2025-01-14] MEDS: LOSARTAN POTASSIUM 25 MG TABLET PO (13:56)
[2025-01-14] MEDS: cloNIDine HCL 0.1 MG TABLET PO (13:56)
[2025-01-14] MEDS: amLODIPine BESYLATE 5 MG TABLET 10 MG PO (13:56)
--- NOTE | 2025-01-14 14:46 | ESHP_ITS ---
Documentation for date of: 01/14/25 HPI History of Present Illness History of present illness: Pierce Dixon is a 34-year-old male with a past medical history of spina bifida (wheelchair-bound), IR[employer] M[employer] shunt, recurrent UTI, bilateral staghorn calculi s/p bilateral ureteral stents , primary hypertension, and chronic anemia who presented to the ED 01/14/25 with a chief complaint of right abdominal pain and dysuria. Associated chills, dysuria, cloudy urine, and urinary frequency. Denies fever, nausea, sweats. Was discharged most recently on 11/28/24 for similar symptoms. He underwent removal of his ureteral stents, bilateral retrograde pyelogram/ureteroscopy, and removal of bladder stones. patient also denies any chest pain/pressure, palpitations, SOB, orthopnea, sick contacts and recent travel. In ED, BP elevated 150/90, other vitals stabe. No leukocytosis, hemoglobin 9.4, MCV 75, hypokalemia 3.1, Cr 3.0 (baseline around 1.6), BUN/Cr 15, GFR 44. UA positive for hematuria, UTI with leukocyte esterase and WBC 746, 4+ bacteria. CT abdomen pelvis multiple large bilateral staghorn calculi, edematous appearing kidneys, and thickened urinary bladder wall consistent with pyelonephritis and cystitis. Coronary ultrasound negative for cholelithiasis or cholecystitis. He was given IV morphine 4 mg x 5, IV ketorolac 30 mg, 1 L bolus NS, 1 g ceftriaxone, vancomycin. Urology Dr. Morelos was consulted and patient admitted for complicated UTI with pyelonephritis. PMH: As noted above PSH: IRON MOL[employer] HEL[employer] shunt, multiple urologic procedures including bilateral ureteral stent placement, laser stone fragmentation and laser bladder stone fragmentation at [facility] by Dr. Morelos FMHx: No significant history Social: Unemployed, denies smoking, denies drinking, occasionally smokes marijuana. Meds: Ferrous sulfate, amlodipine 10 mg, clonidine 0.1 mg, losartan 25 mg daily, hydromorphone 2 mg p.o. TID Allergies: Latex Review of Systems Review of Systems Systems Reviewed: All systems reviewed, normal except as documented Exam Vital Signs Temp Pulse Resp BP Pulse Ox O2 Del Method 98.3 F 94 18 162/113 H 100 Room Air 01/14/25 10:32 01/14/25 13:56 01/14/25 10:32 01/14/25 13:56 01/14/25 10:32 01/14/25 08:35 Narrative Exam General:Young male, No acute distress, cooperative, eating lunch Comfortably HEENT: NCAT, No JVD noted. Mucosa moist. Pupils are equal and reactive to light bilaterally Cardiovascular: Normal S1 and S2. Regular rate and rhythm. Respiratory: Lungs are clear to auscultation bilaterally. No wheezing or crackles heard. Abdomen: Soft, right abdomen tender, Herring negative, not distended, normal bowel sounds. : no CVA tenderness Skin: Warm to touch, dry, no rashes noted Musculoskeletal: No gross injuries. Bilateral lower extremity wasting, unable to move lower extremities. Neuro: Alert and oriented x3. No focal neuro deficits. Psych: Normal affect and mood Results: Labs 01/13/25 22:53 01/13/25 22:53 Labs: Short CBC 01/13/25 Range/Units 22:53 WBC 7.5 (3.8-10.6) Thou/mm3 Hgb 9.4 L (13.5-16.0) g/dL Hct 29.0 L (41.0-53.0) % Plt Count 442 H (140-440) Thou/mm3 BMP 01/13/25 22:53 Sodium 139 Potassium 3.1 L Chloride 107 Carbon Dioxide 22.5 BUN 30 H Creatinine 2.0 H Glucose 92 Calcium 8.2 L Liver Function 01/13/25 Range/Units 22:53 Total Bilirubin 0.2 L (0.3-1.2) mg/dL Direct Bilirubin < 0.1 (0.0-0.3) mg/dL AST < 8 (0-34) U/L ALT < 7 L (10-49) U/L Alkaline Phosphatase 84 (46-116) U/L Albumin 3.5 (3.5-5.0) gm/dL Urine 01/14/25 Range/Units 00:16 Urine Color [place] A (Lt Yel-Yel) Urine Clarity Turbid A (Clear/Hazy) Urine pH 7.5 H (5.0-7.0) Ur Specific [place] 1.012 (1.001-1.035) Urine Protein 3+ A (Neg - Trace) Urine Glucose (UA) Negative (Negative) Quality Measures Quality Measures none Medications Home Medications and Allergies Home Medications ?Medication ?Instructions ?Recorded ?Confirmed ?Type amlodipine 10 mg tablet 10 mg PO DAILY 06/06/2412/24 History hydromorphone 2 mg tablet 2 mg PO TID PRN Pain 4 01/14/25 History clonidine HCl 0.1 mg tablet 0.1 mg PO BID 01/14/25 History losartan 25 mg tablet 25 mg PO DAILY 01/14/2512/24 History Allergies Allergy/AdvReac Type Severity Reaction Status Date / Time latex Allergy Severe RASH Verified 10/08/24 11:30 Visit Medications Acetaminophen (Acetaminophen 325 Mg Tablet) 650 mg PO Q6H PRN PRN Reason: PAIN 1-3 OR FEVER > 101 Stop: 02/13/25 10:24 Amlodipine Besylate (Amlodipine Besylate 5 Mg Tablet) 10 mg PO DAILY [facility] Stop: 02/13/25 13:44 Last Admin: 01/14/25 13:56 Dose: 10 mg Clonidine (Clonidine Hcl 0.1 Mg Tablet) 0.1 mg PO BID [facility] Stop: 02/13/25 13:44 Last Admin: 01/14/25 13:56 Dose: 0.1 mg Hydromorphone HCl (Hydromorphone Inj 2 Mg/Ml Vial) 1 mg IVP Q8H PRN PRN Reason: PAIN SCALE 7-10(Mod-Sev Stop: 01/19/25 10:24 Lactated Ringer's (Lactated Ringers) 1,000 mls @ 75 mls/hr IV .[id number] [facility] Stop: 02/13/25 10:29 Last Admin: 01/14/25 10:30 Dose: 75 mls/hr Piperacillin/Tazobactam/Dextrose (Zosyn) 3.375 gm in 50 mls @ 12.5 mls/hr IV Q8HR [facility] Stop: 01/21/25 14:59 Losartan Potassium (Losartan Potassium 25 Mg Tablet) 25 mg PO DAILY [facility] Stop: 02/13/25 13:44 Last Admin: 01/14/25 13:56 Dose: 25 mg Ondansetron HCl (Ondansetron Inj 2 Mg/Ml Inj 2 Ml) 4 mg IVP Q6H PRN; Protocol PRN Reason: NAUSEA OR VOMITING Stop: 02/13/25 10:24 Oxycodone/Acetaminophen (Oxycodone/Apap 5/325 Tablet) 1 tab PO Q6H PRN PRN Reason: PAIN SCALE 4-6 (Moderate Stop: 01/19/25 10:24 Last Admin: 01/14/25 13:07 Dose: 1 tab Pantoprazole Sodium (Pantoprazole 40 Mg Tablet) 40 mg PO QDAY ARACELY Stop: 02/14/25 08:59 Sennosides (Senna Tablet) 1 tab PO QDAY ARACELY; Protocol Stop: 02/14/25 08:59 Discontinued Medications Famotidine (Famotidine Inj 10 Mg/Ml Vial 2 Ml) 20 mg IVP X1 ONE Stop: 01/14/25 05:31 Last Admin: 01/14/25 05:49 Dose: 20 mg Hydromorphone HCl (Hydromorphone Inj 2 Mg/Ml Vial) 0.5 mg IVP X1 ONE Stop: 01/14/25 10:03 Last Admin: 01/14/25 10:19 Dose: 0.5 mg Sodium Chloride (Ns) 1,000 mls @ 999 mls/hr IV .Q1H1M ONE Stop: 01/13/25 23:25 Last Infusion: 01/13/25 23:59 Dose: Infused Ceftriaxone Sodium/Dextrose (Rocephin/D5w 1gm Iv Premix) 1 g in 50 mls @ 100 mls/hr IV X1 ONE Stop: 01/14/25 01:10 Last Infusion: 01/14/25 01:27 Dose: Infused Vancomycin HCl 1,000 mg/ (Sodium Chloride) 500 mls @ 150 mls/hr IV X1 ONE Stop: 01/14/25 04:05 Last Infusion: 01/14/25 04:53 Dose: Infused Sodium Chloride (Ns) 1,000 mls @ 999 mls/hr IV .Q1H1M ONE Stop: 01/14/25 05:04 Last Infusion: 01/14/25 05:34 Dose: Infused Piperacillin/Tazobactam/Dextrose (Zosyn) 3.375 gm in 50 mls @ 100 mls/hr IV X1 ONE Stop: 01/14/25 11:14 Last Infusion: 01/14/25 11:40 Dose: Infused Ketorolac Tromethamine (Ketorolac Inj 30 Mg/Ml Vial) 30 mg IVP X1 ONE Stop: 01/13/25 22:26 Last Admin: 01/13/25 22:38 Dose: 30 mg Morphine Sulfate (Morphine Sulf Inj 10 Mg/Ml Vial) 4 mg IVP X1 ONE Stop: 01/13/25 22:26 Last Admin: 01/13/25 22:38 Dose: 4 mg Morphine Sulfate (Morphine Sulf Inj 10 Mg/Ml Vial) 4 mg IVP X1 ONE Stop: 01/13/25 23:58 Last Admin: 01/14/25 00:06 Dose: 4 mg Morphine Sulfate (Morphine Sulf Inj 10 Mg/Ml Vial) 4 mg IVP X1 ONE Stop: 01/14/25 04:05 Last Admin: 01/14/25 04:13 Dose: 4 mg Morphine Sulfate (Morphine Sulf Inj 10 Mg/Ml Vial) 4 mg IVP X1 ONE Stop: 01/14/25 07:22 Last Admin: 01/14/25 07:42 Dose: 4 mg Ondansetron HCl (Ondansetron Inj 2 Mg/Ml Inj 2 Ml) 4 mg IVP X1 ONE; Protocol Stop: 01/13/25 22:26 Last Admin: 01/13/25 22:39 Dose: 4 mg Ondansetron HCl (Ondansetron Inj 2 Mg/Ml Inj 2 Ml) 4 mg IVP X1 ONE; Protocol Stop: 01/14/25 04:05 Last Admin: 01/14/25 04:13 Dose: 4 mg Ondansetron HCl (Ondansetron Inj 2 Mg/Ml Inj 2 Ml) 4 mg IVP X1 ONE; Protocol Stop: 01/14/25 07:22 Last Admin: 01/14/25 07:42 Dose: 4 mg Ondansetron HCl (Ondansetron Inj 2 Mg/Ml Inj 2 Ml) 4 mg IVP X1 ONE; Protocol Stop: 01/14/25 10:03 Last Admin: 01/14/25 10:58 Dose: Not Given Pantoprazole Sodium (Pantoprazole Inj 40 Mg Vial) 40 mg IVP X1 ONE Stop: 01/14/25 05:31 Last Admin: 01/14/25 05:49 Dose: 40 mg Potassium Chloride (Potassium Chloride 10% 20 Meq/15 Ml Udc) 40 meq PO X1 ONE Stop: 01/14/25 00:27 Last Admin: 01/14/25 00:42 Dose: 40 meq Assessment & Plan Plan Pierce Dixon is a 34-year-old male with a past medical history of spina bifida (wheelchair-bound), IR[employer] M[employer] shunt, recurrent UTI, bilateral staghorn calculi s/p bilateral ureteral stents , primary hypertension, and chronic anemia who presented to the ED 01/14/25 with a chief complaint of right abdominal pain and dysuria. Urology Dr. Morelos was consulted and patient admitted for complicated UTI with pyelonephritis. #Dysuria 2/2 complicated UTI with pyelonephritis #Staghorn calculi Patient presenting with similar symptoms in the past from dysuria and right- sided abdominal pain. No evidence of sepsis, WBC within normal limits, no fever, no tachycardia. UA positive for hematuria, UTI with leukocyte esterase and WBC 746, 4+ bacteria. CT abdomen pelvis multiple large bilateral staghorn calculi, edematous appearing kidneys, and thickened urinary bladder wall consistent with pyelonephritis and cystitis. ?Urology Dr. Morelos consulted, appreciate recs ? Blood cultures pending ? Urine culture pending ? Monitor GILMA's ? Catheter placement ?IV hydromorphone 1 mg q8hr PRN ?[place] 5 q6hr PRn ?IV Zosyn 3.375g TID (01/14- #TRINI Most likely prerenal in setting of intrinsic problems/obstructive uropathy. Cr 3.0 (baseline around 1.6), BUN/Cr 15, GFR 44. He received 2 L bolus NS in the ED ? Continue IV maintenance fluids LR 75 cc/h -avoid nephrotoxic agents -daily CMP #Iron deficiency anemia Colonoscopy from previous admission found hemorrhoids on exam, normal colon, no evidence of bleeding. EGD showed esophagitis few small nonbleeding ulcers. hemoglobin 9.4, MCV 75 on admisison #HTN On admission BP 150/92. Resume home medications ? Amlodipine 10 mg daily ? Clonidine 0.1 mg BID ? 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 Continue outpatient follow-up Health maintenance: Dispo: med surg, IV abx for UTI/pyelo FEN: renal DVT prophylaxis: SCDs CODE STATUS: Full code The patient's management plan was discussed with my attending physician Dr. Church. Eulalia Arias, PGY-1 Attending Provider Attestation/Addendum I attest that I was physically present for the evaluation, physical examination, lab and imaging review of the patient with the residents. I discussed the case with the residents and agree with the findings and plans of care as documented above. Patient is a 35 years old male with past medical history of spina bifida, is wheelchair-bound, IRON M[employer] HEL[employer] shunt, recurrent UTI, bilateral staghorn calculi status post bilateral ureteral stents, hypertension and chronic anemia who presented with complaint of abdominal pain and dysuria. In the ED, vitals were stable except for blood pressure of 150/90. Lab results show potassium of 3.1, creatinine 2.0, BUN 30. Urinalysis showed hematuria, leukocyte esterase, 4+ bacteria and [address] abdomen/pelvis showed multiple large bilateral staghorn calculi, findings consistent with pyelonephritis and cystitis. Urology was contacted by the ED, who recommended admission for complicated UTI. After examination of the patient and review of the clinical data I feel that this patient needs admission to the hospital for further treatment/evaluation of complicated UTI, pyelonephritis in setting of staghorn calculi. We will start him on IV Zosyn, pain management. We will obtain blood culture, urology consult. Started on IV hydration for TRINI, we will monitor with follow-up CMP. Resumed his home antihypertensive. Izzy Church MD
[2025-01-14] MEDS: HYDROmorphone INJ 2 MG/ML VIAL 1 MG IVP ×3 (15:25→23:28)
[2025-01-14] MEDS: POTASSIUM CHLORIDE 20 mEq TABCR 40 MEQ PO (15:31)
--- NOTE | 2025-01-14 18:06 | PC.NURSE ---
PLACED CALL TO DOCTOR MAXIME PRICE REPORTS 9 IN A PAIN SCALE OF 0-10. ORDER RECEIVED, READ BACK, AND CARRIED OUT.
--- NOTE | 2025-01-14 20:08 | PC.NURSE ---
Dr. Eyad her aware that 2100 dose of clonidine will not be given due to patient's vitals. B/P 98/65 P 80
[2025-01-15] VITALS (12 sets, daily range): BP systolic 112–147; BP diastolic 81–98; PULSE 82–94; RESP 17–97; TEMP 36.4–36.8; O2SAT 95–99
[2025-01-15] MEDS: RINGERS LACTATED 1000 ML 1,000 ML 75 ML IV ×2 (00:57→14:15)
[2025-01-15 05:14] LABS: Basophils % (Auto) 0 % (0-2.5); Eosinophils # (Auto) 0.1 Thou/mm3 (0.0-0.5); Eosinophils % (Auto) 2 % (0-10); Hematocrit 29.4 % (41.0-53.0); Immature Granulocytes % (Auto) 1 % (0-0); Immature Granulocytes Auto 0.11 Thou/mm3 (0.00-0.00); Lymphocytes # (Auto) 0.9 Thou/mm3 (1.0-4.8); Lymphocytes % (Auto) 11 % (10-50); Mean Corpuscular HGB Conc 30.6 g/dl (31.0-37.0); Mean Corpuscular Hemoglobin 24.2 pg (25.0-35.0); Mean Corpuscular Volume 79 fL (80-100); Monocytes # (Auto) 0.5 Thou/mm3 (0.0-0.8); Monocytes % (Auto) 6 % (0-12); Neutrophils # (Auto) 6.4 Thou/mm3 (1.8-7.7); Neutrophils % (Auto) 79 % (37-80); Nucleated Red Blood Cell % 0 /100 WBC (0); Platelet Count 408 Thou/mm3 (140-440); RDW Standard Deviation 68.7 fL (35.1-43.9); Red Blood Count 3.72 Miln/mm3 (4.50-5.90)
[2025-01-15] MEDS: PIPER/TAZO 3.375 GM PREMIX 3.375 GM/50 ML BAG IV ×3 (05:26→21:56)
[2025-01-15 05:49] LABS: Alanine Aminotransferase < 7 U/L (10-49); Albumin, Serum 3.3 gm/dL (3.5-5.0); Albumin/Globulin Ratio 1.2 (1.2-2.2); Alkaline Phosphatase 73 U/L (46-116); Anion Gap 9 (7-16); Aspartate Amino Transferase 11 U/L (0-34); BUN/Creatinine Ratio 14 Ratio (12-20); Bilirubin,Total 0.2 mg/dL (0.3-1.2); Blood Urea Nitrogen 23 mg/dL (9-23); Calcium 8.3 mg/dL (8.3-10.6); Calcium (Corrected) 8.9 mg/dL (8.5-10.1); Carbon Dioxide 18.8 mMol/L (20.0-31.0); Cardiac Risk Estimate 3.7 RATIO (4.0-6.7); Chloride 111 mMol/L (98-107); Cholesterol 118 mg/dL (132-200); Creatinine (Component) 1.7 mg/dL (0.6-1.3); Globulin 2.7 gm/dL (2.3-3.5); Glucose 87 mg/dL (74-106); HDL Cholesterol 32 mg/dL (40-60); LDL Cholesterol,Calculated 56 mg/dL (0-130); Magnesium 1.9 mg/dL (1.6-2.6); Osmolality,Calculated 280 (275-295); Phosphorous 2.5 mg/dL (2.4-5.1); Potassium 4.4 mMol/L (3.4-5.1); Sodium 139 mMol/L (136-145); Triglycerides 151 mg/dL (30-150); eGFR 53 See Note
[2025-01-15] MEDS: cloNIDine HCL 0.1 MG TABLET PO ×2 (08:26→21:55)
[2025-01-15] MEDS: LOSARTAN POTASSIUM 25 MG TABLET PO (08:27)
[2025-01-15] MEDS: PANTOPRAZOLE 40 MG TABLET PO (08:27)
[2025-01-15] MEDS: oxyCODONE/APAP 5/325 TABLET 1 TAB PO ×2 (08:27→23:22)
[2025-01-15] MEDS: amLODIPine BESYLATE 5 MG TABLET 10 MG PO (08:28)
[2025-01-15] MEDS: SENNA TABLET 1 TAB PO (08:28)
--- NOTE | 2025-01-15 08:48 | PC.SS ---
Patient Pierce Dixon is a 35 yr old male admitted for Abdominal Pain. SS met with patient at bedside to complete initial assessment. At time of encounter patient appeared alert and oriented to person, place and situation. Patient was able to confirm all demographic information. Patient reports he lives at home alone. Pt identifies his mom Yesenia Michael [phone]. Patient requires wheel chair for ambulation due to history of cerebral palsy. Patient reports he is able to complete all his own ADLS. Pt does not require supplemental O2 at home. Patient's PCP is Vandana Sears, pharmacy of choice is [facility]. At time of discharge patient will return home, patient reports he will need assistance with Transportation, SS will need to assist patient with transportation. Next of kin: Mother, Yesenia Michael Discharge plan: Home
[2025-01-15] MEDS: HYDROmorphone INJ 2 MG/ML VIAL 1 MG IVP ×2 (10:57→19:05)
--- NOTE | 2025-01-15 10:57 | CHAP ---
ie was visited by a Spiritual Care Volunteer on 01/15/2025 between 0900 and 0920 and received comfort, encouragement and/or prayer.
--- NOTE | 2025-01-15 15:21 | ESPR_ITS ---
Documentation for date of: 01/15/25 Subjective Subjective Interval history: Patient examined at bedside. No events overnight. States that he is still having pain 8/10 in lower back and right abdomen. However appears to be comfortable while examining at bedside. No CVA tenderness. WBC stable, TRINI resolving with creatinine 1.7. Pending Dr Morelos recommendations. Will continue IV antibiotics and pain management in setting of his pyelonephritis. Urine cultures pending. Exam Vital Signs Temp Pulse Resp BP Pulse Ox O2 Del Method 97.8 F 83 18 112/82 97 Room Air 01/15/25 12:00 01/15/25 12:00 01/15/25 12:00 01/15/25 12:00 01/15/25 12:00 01/15/25 12:00 Narrative Exam General:Young male, No acute distress, cooperative HEENT: NCAT, No JVD noted. Mucosa moist. Pupils are equal and reactive to light bilaterally Cardiovascular: Normal S1 and S2. Regular rate and rhythm. Respiratory: Lungs are clear to auscultation bilaterally. No wheezing or crackles heard. Abdomen: Soft, right abdomen tender, Herring negative, not distended, normal bowel sounds. : no CVA tenderness Skin: Warm to touch, dry, no rashes noted Musculoskeletal: No gross injuries. Bilateral lower extremity wasting, unable to move lower extremities. Neuro: Alert and oriented x3. No focal neuro deficits. Psych: Normal affect and mood Objective Labs 01/16/25 05:29 01/16/25 05:29 Labs: Laboratory Results - last 24 hr 01/15/25 04:37 WBC 8.0 RBC 3.72 L Hgb 9.0 L Hct 29.4 L MCV 79 L MCH 24.2 L MCHC 30.6 L RDW Std Deviation 68.7 H Plt Count 408 D Neut % (Auto) 79 Lymph % (Auto) 11 Cedar % (Auto) 6 Eos % (Auto) 2 Baso % (Auto) 0 Neut # (Auto) 6.4 Lymph # (Auto) 0.9 L Cedar # (Auto) 0.5 Eos # (Auto) 0.1 Baso # (Auto) 0.0 Immature Gran # (Auto) 0.11 H Absolute Nucleated RBC 0.00 Immature Gran % 1 H Nucleated RBC % 0 Sodium 139 Potassium 4.4 D Chloride 111 H Carbon Dioxide 18.8 L Anion Gap 9 BUN 23 Creatinine 1.7 H Estim Creat Clear Calc 37.0 L eGFR 53 L BUN/Creatinine Ratio 14 Glucose 87 Calculated Osmolality 280 Calcium 8.3 Corrected Calcium 8.9 Phosphorus 2.5 Magnesium 1.9 Total Bilirubin 0.2 L AST 11 ALT < 7 L Alkaline Phosphatase 73 Total Protein 6.0 Albumin 3.3 L Globulin 2.7 Albumin/Globulin Ratio 1.2 Triglycerides 151 H Cholesterol 118 L LDL Cholesterol, Calc 56 HDL Cholesterol 32 L Cholesterol/HDL Ratio 3.7 L Quality Measures Quality Measures none Assessment & Plan Assessment Current Active Medications: Generic Name Dose Route Start Last Admin Trade Name Freq PRN Reason Stop Dose Admin Acetaminophen 650 mg 01/14/25 10:25 Acetaminophen 325 Mg Tablet PO 02/13/25 10:24 Q6H PRN PAIN 1-3 OR FEVER > 101 Amlodipine Besylate 10 mg 01/14/25 13:45 01/15/25 08:28 Amlodipine Besylate 5 Mg Tablet PO 02/13/25 13:44 10 mg DAILY ARACELY Administration Clonidine 0.1 mg 01/14/25 13:45 01/15/25 08:26 Clonidine Hcl 0.1 Mg Tablet PO 02/13/25 13:44 0.1 mg BID ARACELY Administration Hydromorphone HCl 1 mg 01/14/25 10:25 01/15/25 10:57 Hydromorphone Inj 2 Mg/Ml Vial IVP 01/19/25 10:24 1 mg Q8H PRN Administration PAIN SCALE 7-10(Mod-Sev Lactated Ringer's 1,000 mls @ 75 mls/hr 01/14/25 10:30 01/15/25 14:15 Lactated Ringers IV 02/13/25 10:29 75 mls/hr .[id number] ARACELY Administration Piperacillin/Tazobactam/Dextrose 3.375 gm in 50 mls @ 12.5 mls/hr 01/14/25 15:00 01/15/25 14:15 Zosyn IV 01/21/25 14:59 12.5 mls/hr Q8HR ARACELY Administration Losartan Potassium 25 mg 01/14/25 13:45 01/15/25 08:27 Losartan Potassium 25 Mg Tablet PO 02/13/25 13:44 25 mg DAILY ARACELY Administration Ondansetron HCl 4 mg 01/14/25 10:25 Ondansetron Inj 2 Mg/Ml Inj 2 Ml IVP 02/13/25 10:24 Q6H PRN NAUSEA OR VOMITING Protocol Oxycodone/Acetaminophen 1 tab 01/14/25 10:25 01/15/25 08:27 Oxycodone/Apap 5/325 Tablet PO 01/19/25 10:24 1 tab Q6H PRN Administration PAIN SCALE 4-6 (Moderate Pantoprazole Sodium 40 mg 01/15/25 09:00 01/15/25 08:27 Pantoprazole 40 Mg Tablet PO 02/14/25 08:59 40 mg QDAY ARACELY Administration Sennosides 1 tab 01/15/25 09:00 01/15/25 08:28 Senna Tablet PO 02/14/25 08:59 1 tab QDAY ARACELY Administration Protocol Plan Pierce Dixon is a 34-year-old male with a past medical history of spina bifida (wheelchair-bound), 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 Urology Dr. Morelos was consulted and patient admitted for complicated UTI with pyelonephritis. #Pyelonephritis #Staghorn calculi Patient presenting with similar symptoms in the past from dysuria and right- sided abdominal pain. No evidence of sepsis, WBC within normal limits, no fever, no tachycardia. UA positive for hematuria, UTI with leukocyte esterase and WBC 746, 4+ bacteria. CT abdomen pelvis multiple large bilateral staghorn calculi, edematous appearing kidneys, and thickened urinary bladder wall consistent with pyelonephritis and cystitis. ?Urology Dr. Morelos consulted, appreciate recs ? Blood cultures pending ? Urine culture pending ? Monitor GILMA's ? Catheter placement ?IV hydromorphone 1 mg q8hr PRN ?Anderson 5 q6hr PRn ?IV Zosyn 3.375g TID (01/14- #TRINI-resolving Most likely prerenal in setting of intrinsic problems/obstructive uropathy. Cr 3.0 (baseline around 1.6), BUN/Cr 15, GFR 44. He received 2 L bolus NS in the ED -encourage oral fluid intake -avoid nephrotoxic agents -daily CMP #Iron deficiency anemia Colonoscopy from previous admission found hemorrhoids on exam, normal colon, no evidence of bleeding. EGD showed esophagitis few small nonbleeding ulcers. hemoglobin 9.4, MCV 75 on admisison -daily CBC -transfuse if Hb <7 #HTN On admission BP 150/92. Resume home medications ? Amlodipine 10 mg daily ? Clonidine 0.1 mg BID ? 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 Continue outpatient follow-up Health maintenance: Dispo: med surg, IV abx for UTI/pyelo FEN: renal DVT prophylaxis: SCDs CODE STATUS: Full code The patient's management plan was discussed with my attending physician Dr. Frost. Eulalia Arias, PGY-1 Attending Provider Attestation/Addendum I have examined the patient, reviewed labs and imaging findings, discussed the case with the resident(s), and reviewed entered orders. I agree with the plan of care as outlined in this note, with these additional summaries/recommendations: Patient seen at bedside. No acute overnight events. He reports his pain is currently controlled. Patient diagnosed with pyelonephritis. He has a history of recurrent urinary tract infections. Urinalysis significant for leukocyte esterase, RBC 5-8, WBCs 746, and 4+ bacteria. Urine culture taken and patient started on IV antibiotics. Follow-up urine and blood cultures when available. CT abdomen/pelvis showed multiple large bilateral staghorn calculi with edematous kidneys and thickened urinary bladder wall consistent with pyelonephritis. In-house urology consulted for staghorn calculi and has agreed to follow, recommendations appreciated. Continue home antihypertensives and pain management. Patient updated on the plan and in agreement. All questions answered to satisfaction. Please see residents note for additional details and management. Dr. Santohs MD
--- NOTE | 2025-01-15 15:56 | PC.SS ---
SS follow up note; Pending urology recs and urine cultures. Patient is on IV ABX, will discharge back home when medically cleared.
--- NOTE | 2025-01-15 23:17 | PC.NURSE ---
Patient notified SUZANNE Howard that he is having severe back and flank pain. VALERIE Carver notified Dr. Castano and Dr. Castano instructed RN to try percocet first and if that don't work we can try dilaudid again.
[2025-01-16] VITALS: BP 123/80; PULSE 82; RESP 19; TEMP 36.6; O2SAT 98
--- NOTE | 2025-01-16 01:37 | PC.LAC ---
Patient had a chief complaint of a 10/10 pain that starts from his kidneys and radiates to his back. Dr. Castano (hospitalist) was contacted and an order of lidocaine patch was obtained. Patient was educated on the effect of having too many opiates given to him. Patient agreed to try lidocaine patch.
[2025-01-16] MEDS: LIDOCAINE 5% 1 PATCH TOP (01:45)
[2025-01-16 04:00] VITALS: BP 114/76; PULSE 74; RESP 18; TEMP 36.1; O2SAT 96
[2025-01-16] MEDS: PIPER/TAZO 3.375 GM PREMIX 3.375 GM/50 ML BAG IV (05:05)
[2025-01-16] MEDS: HYDROmorphone INJ 2 MG/ML VIAL 1 MG IVP (05:36)
[2025-01-16 06:06] LABS: Basophils % (Auto) 0 % (0-2.5); Eosinophils # (Auto) 0.2 Thou/mm3 (0.0-0.5); Eosinophils % (Auto) 3 % (0-10); Hematocrit 31.1 % (41.0-53.0); Hemoglobin 9.8 g/dL (13.5-16.0); Immature Granulocytes % (Auto) 0 % (0-0); Immature Granulocytes Auto 0.02 Thou/mm3 (0.00-0.00); Lymphocytes # (Auto) 0.8 Thou/mm3 (1.0-4.8); Lymphocytes % (Auto) 15 % (10-50); Mean Corpuscular HGB Conc 31.5 g/dl (31.0-37.0); Mean Corpuscular Hemoglobin 24.3 pg (25.0-35.0); Mean Corpuscular Volume 77 fL (80-100); Monocytes # (Auto) 0.4 Thou/mm3 (0.0-0.8); Monocytes % (Auto) 7 % (0-12); Neutrophils # (Auto) 4.2 Thou/mm3 (1.8-7.7); Neutrophils % (Auto) 75 % (37-80); Nucleated Red Blood Cell % 0 /100 WBC (0); Platelet Count 401 Thou/mm3 (140-440); RDW Standard Deviation 67.1 fL (35.1-43.9); Red Blood Count 4.04 Miln/mm3 (4.50-5.90); White Blood Count 5.6 Thou/mm3 (3.8-10.6)
[2025-01-16 06:53] LABS: Alanine Aminotransferase < 7 U/L (10-49); Albumin, Serum 3.6 gm/dL (3.5-5.0); Albumin/Globulin Ratio 1.2 (1.2-2.2); Alkaline Phosphatase 78 U/L (46-116); Anion Gap 9 (7-16); Aspartate Amino Transferase 10 U/L (0-34); BUN/Creatinine Ratio 12 Ratio (12-20); Bilirubin,Total 0.3 mg/dL (0.3-1.2); Blood Urea Nitrogen 22 mg/dL (9-23); Calcium 8.6 mg/dL (8.3-10.6); Calcium (Corrected) 8.9 mg/dL (8.5-10.1); Carbon Dioxide 19.6 mMol/L (20.0-31.0); Chloride 112 mMol/L (98-107); Creatinine (Component) 1.8 mg/dL (0.6-1.3); Estimated Creatinine Clearance 34.9 mL/min (>60); Globulin 3.1 gm/dL (2.3-3.5); Glucose 92 mg/dL (74-106); Magnesium 2.1 mg/dL (1.6-2.6); Osmolality,Calculated 284 (275-295); Phosphorous 2.9 mg/dL (2.4-5.1); Potassium 4.1 mMol/L (3.4-5.1); Sodium 141 mMol/L (136-145); Total Protein 6.7 gm/dL (5.7-8.2); eGFR 50 See Note
[2025-01-16 07:54] VITALS: BP 121/67; PULSE 86; RESP 16; TEMP 36.2; O2SAT 96
[2025-01-16 09:29] VITALS: BP 121/84; PULSE 86
[2025-01-16] MEDS: LOSARTAN POTASSIUM 25 MG TABLET PO (09:29)
[2025-01-16 09:31] VITALS: BP 121/84; PULSE 86
[2025-01-16] MEDS: PANTOPRAZOLE 40 MG TABLET PO (09:31)
[2025-01-16] MEDS: amLODIPine BESYLATE 5 MG TABLET 10 MG PO (09:31)
[2025-01-16] MEDS: SENNA TABLET 1 TAB PO (09:31)
[2025-01-16 09:32] VITALS: BP 121/84; PULSE 86
[2025-01-16] MEDS: cloNIDine HCL 0.1 MG TABLET PO (09:32)
--- NOTE | 2025-01-16 10:08 | PD.RESDS ---
Planned Discharge Date 01/16/25 DS: Providers Provider Date of admission: 01/14/25 10:25 Primary care physician: Vandana Sears NP Admitting Provider: Izzy Church MD Attending Provider on Admission: Arnold Forst MD Consults: 01/14/25 09:59 Consult to Urology Stat Comment: pyelonephritis Consulting Provider: Gisel Morelos 01/14/25 13:39 [facility] Referral - Nutrition Routine Comment: Positive screening for nutrition needs. 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 Urology Dr. Morelos was consulted and patient admitted for complicated UTI with pyelonephritis. No evidence of sepsis, WBC within normal limits, no fever, no tachycardia. UA positive for hematuria, UTI with leukocyte esterase and WBC 746, 4+ bacteria. CT abdomen pelvis multiple large bilateral staghorn calculi, edematous appearing kidneys, and thickened urinary bladder wall consistent with pyelonephritis and cystitis. Started patient on IV antibiotics. He had an TRINI with creatinine 3.0 which resolved with adequate fluids. Per urology, he did not need replacement of stents after their evaluation. Urine culture grew Proteus mirabilis. He was transitioned to p.o. medication. Patient is now in stable condition and ready for discharge. Recommendations were given as below. Discharge Recommendations: Resume previous medications. Continue taking cefuroxime 250mg twice a day for 7 more days for treatment of UTI. Follow up with Primary Care Provider in 1-2 weeks. 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 Eulalia Arias MD, PGY-1 Time Spent with Patient Time attestation: Total time spent providing and/or coordinating discharge services: Time spent: Greater than 30 minutes Exam Vital Signs Temp Pulse Resp BP Pulse Ox O2 Del Method 97.1 F 86 16 121/84 96 Room Air 01/16/25 07:54 01/16/25 09:32 01/16/25 07:54 01/16/25 09:32 01/16/25 07:54 01/16/25 07:54 Narrative Exam General:Young male, No acute distress, cooperative HEENT: NCAT, No JVD noted. Mucosa moist. Pupils are equal and reactive to light bilaterally Cardiovascular: Normal S1 and S2. Regular rate and rhythm. Respiratory: Lungs are clear to auscultation bilaterally. No wheezing or crackles heard. Abdomen: Soft, right abdomen tender, Herring negative, not distended, normal bowel sounds. : no CVA tenderness Skin: Warm to touch, dry, no rashes noted Musculoskeletal: No gross injuries. Bilateral lower extremity wasting, unable to move lower extremities. Neuro: Alert and oriented x3. No focal neuro deficits. Psych: Normal affect and mood Discharge Plan Plan Patient Disposition: HOME (Self Care) Patient condition on transfer: Stable Prescriptions/Referrals Prescriptions/Med Rec: New cefuroxime axetil 250 mg tablet 250 mg PO BID 7 Days Qty: 14 0RF Continued amlodipine 10 mg tablet 10 mg PO DAILY Patient Comments: TAKE 1 TABLET BY MOUTH EVERY DAY hydromorphone 2 mg tablet 2 mg PO TID PRN (Reason: Pain) Patient Comments: TAKE 1 TABLET BY MOUTH THREE TIMES A DAY NEEDED Rx Instructions: kidney pain losartan 25 mg tablet 25 mg PO DAILY Patient Comments: TAKE 1 TABLET BY MOUTH EVERY DAY clonidine HCl 0.1 mg tablet 0.1 mg PO BID Patient Comments: TAKE 1 TABLET BY MOUTH TWICE A DAY Referrals: Vandana Sears NP [Primary Care Provider] - Patient/Caregiver Discharge Instructions Other Discharge Activity Instructions:: Resume previous medications. Continue taking cefuroxime 250mg twice a day for 7 more days for treatment of UTI. Follow up with Primary Care Provider in 1-2 weeks. Education Materials: Anatomy of the Male Urinary Tract, Acute Kidney Failure Dc, ED Pyelonephritis, Male (Adult) Print Language: Gambian Stand Alone Forms: Leyla Award Info., Patient Portal Info Letter Discharge Order Discharge Orders: Discharge (Routine); Ordered 01/16/25 Ordered By: Eulalia Arias Quality Discharge Quality Measures VTE prophylaxis Attestestation MD Attestation I have examined the patient, reviewed labs and imaging findings, discussed the case with the resident(s), and reviewed entered orders. I agree with the plan of care as outlined in this note. Time Spent: [address] Santosh MD
--- NOTE | 2025-01-16 11:38 | PC.SS ---
SS follow up note; SS set up transportation for patient with [facility]. Patient will discharge home today.
--- NOTE | 2025-01-16 15:29 | CHAP ---
Patient was visited by a Spiritual Care Volunteer on 01/16/2025 between 0900 and 1015 and received comfort, encouragement and/or prayer.
--- NOTE | 2025-01-16 17:10 | UCCONSULT_ITS ---
RE: JOSE MELGAR : 1990 DATE OF CONSULTATION: 01/16/2025 ESTABLISHED DIAGNOSES: 1. Spina bifida. The patient is wheelchair bound. 2. RESORT HOST shunt. 3. Hypertension. 4. Bilateral staghorn calculi status post placement of bilateral ureteral stents. HISTORY OF PRESENT ILLNESS: This is a 35-year-old gentleman. This patient has a history of spina bifida status post RESORT HOST shunt, recurrent UTI, bilateral staghorn calculi, placement of bilateral ureteral stent for hydronephrosis. He presented to the emergency room with a history of backache, fever, and gross hematuria. No nausea, vomiting, or diarrhea and other complaints. The patient has a neurogenic bladder. He is on intermittent catheterization. REVIEW OF THE SYSTEM: All systems negative except as documented. PHYSICAL EXAMINATION: General: The patient is sleeping comfortably in his bed. HEENT: Normocephalic, atraumatic. Eyes: Lids clear. Conjunctiva clear. Neck: Supple. Trachea is central. Thyroid is not enlarged. Extremities: Revealed no edema, cyanosis, or clubbing. Heart: Regular rate and rhythm. Chest: Symmetrical. Abdomen: No masses. Liver, spleen, kidneys palpation. No CVA tenderness. Skin: Warm and dry. VARIOUS LABS: At the time of admission on 01/13/2025, potassium 3.1, creatinine is 2.0, CRP 5.0, ESR 94, urine is infected. He had CAT scan of the abdomen and pelvis done. This revealed gallbladder sludge. There is bilateral staghorn calculi, status post placement of the bilateral ureteral stent and pyelonephritis. Urine is infected. IMPRESSION: 1. Diagnosis at that time was pyelonephritis. 2. Acute kidney injury superimposed on chronic kidney disease. 3. Hypokalemia. The patient was started on IV and IV antibiotics. He had urine for culture sensitivity. This grew proteus mirabilis and he is on IV Zosyn. The patient is responding to the treatment this morning. His pulse is 80 per minute. Blood pressure is 121/84. Temperature is 97.1. BUN is 22, creatinine is 1.8, WBC is 5.6. The patient had replacement of bilateral ureteral stent one month ago. RECOMMENDATIONS: 1. Continue with intravenous antibiotics. 2. Amlodipine 10 mg p.o. daily, hydromorphone 2 mg daily. He is also on ferrous sulfate 325 mg tablet. Plan is treat with antibiotics when the patient is stable and free of pain and urine is clear. He can be discharged home and he will follow me up in the urology office. He does not need replacement of stents at this time. All above issues were discussed with the patient in detail. I answered questions to his satisfaction and followup appointment in urology office will be given. DT: 10:09:16 TT: 17:09:00 Ref: [id number] - TID: [id number]
== END 2025-01-16 11:50 | disposition home or self-care (01) | DRG 463 ==
LOC: SERX 01-14 10:12 → SERHOLD 01-14 10:46 → S3SX 01-14 12:35
PROVIDERS: Emergency Medicine; Student in an Organized Health Care Education/Training Program; Admitting Provider Student in an Organized Health Care Education/Training Program; Emergency Provider Family Medicine; PCP Nurse Practitioner Family; Visit Provider Student in an Organized Health Care Education/Training Program
DX: N10 Acute pyelonephritis (principal); N20.0 Calculus of kidney; N30.91 Cystitis, unspecified with hematuria; E87.6 Hypokalemia; N17.9 Acute kidney failure, unspecified; B96.4 Proteus (mirabilis) (morganii) as the cause of diseases classified elsewhere; D50.9 Iron deficiency anemia, unspecified; I12.9 Hypertensive chronic kidney disease with stage 1 through stage 4 chronic kidney disease, or unspecified chronic kidney disease; N18.9 Chronic kidney disease, unspecified; N21.0 Calculus in bladder; Q05.9 Spina bifida, unspecified; N31.9 Neuromuscular dysfunction of bladder, unspecified; Z79.899 Other long term (current) drug therapy; Z87.440 Personal history of urinary (tract) infections; Z87.442 Personal history of urinary calculi; Z98.2 Presence of cerebrospinal fluid drainage device; Z99.3 Dependence on wheelchair
CPT/HCPCS: 36415; 71045; 74176; 76705; 80053; 80061; 81001; 82150; 82248; 83605; 83690; 83735; 84100; 84145; 85025; 85652; 86140; 87040; 87077; 87086; 87186; 87400; 96361; 96365; 96366; 96367; 96374; 96375; 96376; 99285; J0696; J1171; J1885; J2270; J2405; J2470; J2543; J3370; J3490; J7030; J7120; J7999; A9270

== ENCOUNTER 2025-01-31 22:15 | Emergency (ER) | payer MEDICAID, SELFPAY ==
[2025-01-31 22:25] VITALS: BP 211/124; PULSE 107; RESP 19; TEMP 36.9; O2SAT 98
--- NOTE | 2025-01-31 23:22 | PD.EDDENTL ---
ED Dental RME/HPI General Chief complaint: Dental/Oral/Throat Stated complaint: TOOTH PAIN Time Seen by Provider: 01/31/25 23:12 Arrival date/time: 01/31/25 22:15 35M with extensive PMH including spina bifida (wheelchair-bound), LONG LINE TEAMSTER shunt, recurrent UTI/kidney stones (self-cath), and HTN presents to ED with 1 day of R lower dental pain. Patient does not see dentist often, but will. Limitations: no limitations Related Data Home Medications ?Medication ?Instructions ?Recorded ?Confirmed amlodipine 10 mg tablet 10 mg PO DAILY 06/06/24 01/14/25 hydromorphone 2 mg tablet 2 mg PO TID PRN Pain 06/06/24 01/14/25 clonidine HCl 0.1 mg tablet 0.1 mg PO BID 01/14/25 01/14/25 losartan 25 mg tablet 25 mg PO DAILY 01/14/25 01/14/25 Previous Rx's ?Medication ?Instructions ?Recorded amoxicillin 875 mg-potassium 1 tab PO BID 7 days #14 tabs 01/31/25 clavulanate 125 mg tablet Allergies Allergy/AdvReac Type Severity Reaction Status Date / Time latex Allergy Severe RASH Verified 10/08/24 11:30 Review of Systems Review of Systems Systems Reviewed: All systems reviewed, normal except as documented Constitutional Constitutional: Reports system reviewed and no additional complaints, except as documented, Denies fever(s) and Denies headache(s) ENT Ears, Nose, Mouth, and Throat: Reports as per HPI, Reports dental pain, Denies disequilibrium and Denies headache(s) Cardiovascular Cardiovascular: Reports system reviewed and no additional complaints, except as documented, Denies chest pain and Denies dyspnea Respiratory Respiratory: Reports system reviewed and no additional complaints, except as documented, Denies cough and Denies dyspnea Gastrointestinal Gastrointestinal: Reports system reviewed and no additional complaints, except as documented, Denies abdominal pain, Denies nausea and Denies vomiting Neurologic Neurologic: Reports system reviewed and no additional complaints, except as documented, Denies confusion, Denies disequilibrium and Denies headache(s) Psychiatric Psychiatric: Denies confusion Past Medical History Past Medical History NEUROLOGIC: Positive Neurological Disorders, Spina Bifida and Migraine; Negative Cerebrovascular Accident, Transient Ischemic Attacks (TIA), Dementia, Alzheimer's Disease, Parkinson's Disease, Brain Tumor, Meningitis, Seizures, Epilepsy, Multiple Sclerosis, Cerebral Palsy, Amyotrophic Lateral Sclerosis (ALS/Marcie Gehrig's), Guillain-[place] Syndrome, Paralysis, Peripheral Neuropathy, Kearns's Palsy, Subdural Hematoma, Head Trauma, Spinal Cord Injury or Traumatic Brain Injury CARDIAC: Positive Cardiac Disorders and Hypertension; Negative Myocardial Infarction, Cardiac Arrhythmia, Atrial Fibrillation, Angina, Heart Murmur, Coronary Artery Disease, Atherosclerotic Heart Disease, Peripheral Vascular Disease, Hypercholesterolemia, Aneurysm, Congestive Heart Failure, Congenital Heart Disease, Valvular Heart Disease, Rheumatic Fever, Cardiomyopathy, Edema, Pericarditis, Cellulitis, Deep Vein Thrombosis, Hypotension or Varicose Veins RESPIRATORY: Negative Chronic Obstructive Pulmonary Disease (COPD), Asthma, Bronchitis, Emphysema, Pneumonia, Pulmonary Fibrosis, Cystic Fibrosis, Tuberculosis, Pulmonary Embolism, Pulmonary Edema or Sleep Apnea GASTROINTESTINAL: Negative Gastrointestinal Disorders, Hepatitis, Cirrhosis, Pancreatitis, Celiac Disease, Gall Bladder Disease, Gastrointestinal Bleed, Esophageal Varices, Goyal's Esophagus, Colitis, Ulcerative Colitis, Diverticulitis, Diverticulosis, Ulcer, Colorectal Cancer, Irritable Bowel, Crohn's Disease, Obstructive Bowel, Hiatal Hernia, Hemorrhoids, Gastroesophageal Reflux Disease or Obesity GENITOURINARY: Positive Genitourinary Disorders, Kidney Stones and Neurogenic Bladder; Negative Renal Disease, Polycystic Kidney Disease, Inguinal Hernia, Dialysis, Prostate Cancer or Benign Prostatic Hyperplasia REPRODUCTIVE: Negative Breast Cancer, Fibroids, Genital Herpes, Gonorrhea, Syphilis or Testicular Cancer MUSCULOSKELETAL: Positive Musculoskeletal Disorders and Fractures (LEFT LEG); Negative Muscular Dystrophy, Myasthenia Gravis, Marfan's Syndrome, Bone Cancer, Arthritis, Rheumatoid Arthritis, Osteoporosis, Degenerative Disk Disease, Gout, Scoliosis, Carpal Tunnel Syndrome, Fibromyalgia, Degenerative Joint Disease, Osteomyelitis or Poliovirus ENT: Negative Cataracts, Glaucoma, Blind, Retinal Detachment, Macular Degeneration, Ear Infection, Deafness, Head Trauma or Eye Prosthesis ENDOCRINE: Negative Endocrine Disorders, Diabetes Mellitus Type 1, Diabetes Mellitus Type 2, Hypoglycemia, Shantal's Syndrome, Brogue's Disease, Hyperthyroidism, Hypothyroidism, Parathyroid Disease, Pituitary Disease, Systemic Lupus Erythematosus, Syndrome of Inappropriate Antidiuretic Hormone (SIADH), Adrenal Disease or Graves' Disease HEMATOLOGIC: Positive Blood Disorders and Anemia; Negative Leukemia, Hemophilia, Thalassemia, Sickle Cell Disease or Clotting Problems PSYCHO/SOCIAL: Positive Depression (PER PT NOT DIAGNOSED) and Anxiety; Negative Psychiatric Problems, Schizophrenia, Recreational Drug Use, Bipolar Disorder, Behavior Problems, Self-Mutilation, Attention Deficit Disorder, Attention Deficit Hyperactivity Disorder, Depression, Post Traumatic Stress Disorder or Eating Disorder OTHER HISTORY: Positive Hospitalization, Blood Transfusions and Chicken Pox; Negative Autoimmune Disease, Down Syndrome, Autism, Developmental Delay, Shingles, Falls, Blood Transfusion Reaction, Anesthesia Reactions, Organ Transplant, Chemotherapy, Radiation Therapy, Hyperbaric Therapy, MRSA, VRSA, Vancomycin-Resistant Enterococci, Human Immunodeficiency Virus (HIV), Measles, Mumps, Rubella (Icelandic Measles), Pertussis, Clostridium Difficile, Cancer, Breast Cancer, Cervical Cancer, Colorectal Cancer, Lung Cancer, Ovarian Cancer, Prostate Cancer or Testicular Cancer Family History FAMILY HISTORY: Positive Family Surgery; Negative Family Psychiatric Problems, Family Respiratory Disorders, Family Cardiac Disorders, Family Gastrointestinal Problems, Family Cancer or Family Anesthesia Reaction Surgical History SURGICAL: Positive Brain Shunt (RIGHT SIDE OF HEAD); Negative Cardiac Surgery, Open Heart Surgery, Coronary Artery Bypass Graft, Valve Replacement, Vascular Surgery, Coronary Stent, Cardiac Catheterization, Pacemaker, Angiogram, Auto Implanted Cardiovert Defib, Carotid Endarterectomy, Endocrine Surgery, Thyroidectomy, Ear Surgery, Tympanostomy Tube, Eye Surgery, Nose Surgery, Oral Surgery, Tonsillectomy, Adenoidectomy, Cochlear Implant, Corneal Transplant, Throat Surgery, Abdominal Surgery, Tracheostomy, Gastric Bypass Surgery, Gastrostomy, Bowel Surgery, Nephrectomy, Transurethral Resection, Joint Replacement, Amputation, Open Reduction Internal Fixation, Arthroscopy, Neurologic Surgery, Mastectomy, Lumpectomy, Hysterectomy, Tubal Ligation, Section, Vasectomy or Organ Transplant Social History SMOKING STATUS: Never smoker SECOND HAND EXPOSURE: No SUBSTANCE USE: marijuana ED Exam General Limitations: Present no limitations General appearance: Present alert and in distress Head Head exam: Present atraumatic Eye Eye exam: Present normal appearance, PERRL and EOMI ENT ENT exam: Present mucous membranes moist Expanded ENT Exam Teeth exam: Present dental caries and dental tenderness # (28/29) Neck Neck exam: Present normal inspection, full ROM and trachea midline Chest Chest inspection: Present normal inspection and symmetric chest wall rise Respiratory Respiratory exam: Present normal lung sounds bilaterally Cardiovascular Cardiovascular exam: Present regular rate, normal rhythm and normal heart sounds Abdominal Exam Abdominal exam: Present soft and normal bowel sounds Extremities Exam Extremities exam: Present normal inspection and full ROM Back Exam Back exam: Present normal inspection and full ROM Neurological Exam Neurological exam: Present alert, oriented X3 and CN II-XII intact Psychiatric Psychiatric exam: Present normal affect and normal mood Skin Skin exam: Present warm, dry, intact and normal color Course Quality Measures none Orders Category Date Time Status Amoxicillin/Pot Clav 875 [Augmentin 875] Med 01/31/25 23:13 Discontinued 1 tab PO X1 ONE Morphine Inj Med 01/31/25 23:13 Discontinued 5 mg IM X1 ONE Vital Signs Vital signs: Vital Signs Temperature 98.5 F 01/31/25 22:25 Pulse Rate 107 H 01/31/25 22:25 Respiratory Rate 19 01/31/25 22:25 Blood Pressure 211/124 H 01/31/25 22:25 Pulse Oximetry (%) 98 01/31/25 22:25 Oxygen Delivery Method Room Air 01/31/25 22:25 O2 at 98% on RA and WNLs Dental / Oral MDM Narrative MDM Narrative:: 35M with extensive PMH including spina bifida (wheelchair-bound), LONG LINE TEAMSTER shunt, recurrent UTI/kidney stones (self-cath), and HTN presents to ED with 1 day of R lower dental pain. Patient does not see dentist often, but will. Physical exam reveals R lower dental tenderness and multiple caries. Patient is afebrile, alert, but appears to be in pain. Meds and financial aid counselor given. Patient data External records reviewed:: [facility] previous records Clinical information provided by:: patient Social determinants that could affect healthcare access:: none Patient has the following chronic illnesses:: extensive PMH including spina bifida (wheelchair-bound), LONG LINE TEAMSTER shunt, recurrent UTI/kidney stones (self-cath) How is presenting disease/condition affected by chronic disease/condition?: exacerbated by Evaluation data The following diagnostics were reviewed and interpreted by me:: other (specify) (none) Lab and/or radiology exams considered but not ordered:: not ordered Interpretation Summary: n/a Medications / Prescriptions Medications or Prescriptions considered but not ordered:: ordered Medication administrations:: Medication Administration History Discontinued Medications Amoxicillin/Clavulanate Potassium (Amoxicillin/Pot Clav 875 Tablet) 1 tab PO X1 ONE Stop: 01/31/25 23:14 Morphine Sulfate (Morphine Sulf Inj 10 Mg/Ml Vial) 5 mg IM X1 ONE Stop: 01/31/25 23:14 above Consultations Consultation(s) initiated? (list below): No Diagnosis Dental Differential Diagnosis: gingival abscess, dental caries, toothache, dental abscess, fracture of tooth and aphthous ulcer Most likely diagnosis given after review of the tests above:: dental infection Admission Indicated Admission indicated?: not indicated Admission Request Was there a request for admission?: No Disposition Plan Disposition Plan: Discharge Discharge Attestation Discharge Attestation: The patient and all family members were given an opportunity to ask questions and understood the discharge instructions. Discharge instructions specifically effects, indications for sooner follow up or return to the emergency department, and the expected course of current diagnosis. Patient condition: Stable Discharge Plan Plan Patient Disposition: HOME (Self Care) Discharge Disposition comment: Stable Prescriptions/Referrals Prescriptions/Med Rec: New amoxicillin-pot clavulanate 875-125 mg tablet 1 tab PO BID 7 Days Qty: 14 0RF No Action amlodipine 10 mg tablet 10 mg PO DAILY Patient Comments: TAKE 1 TABLET BY MOUTH EVERY DAY hydromorphone 2 mg tablet 2 mg PO TID PRN (Reason: Pain) Patient Comments: TAKE 1 TABLET BY MOUTH THREE TIMES A DAY NEEDED Rx Instructions: kidney pain losartan 25 mg tablet 25 mg PO DAILY Patient Comments: TAKE 1 TABLET BY MOUTH EVERY DAY clonidine HCl 0.1 mg tablet 0.1 mg PO BID Patient Comments: TAKE 1 TABLET BY MOUTH TWICE A DAY Problem List Clinical Impression: Dental infection Patient/Caregiver Discharge Instructions Education Materials: ED Dental Abscess Additional Instructions: Please follow-up with PCP within 24-48 hours and return immediately if symptoms worsen. See dentist soon. Print Language: Burundian Stand Alone Forms: Patient Portal Info Letter [facility]PIT/GREY Supervising Physician ARPIT/GREY Supervising Physician: Dr. Moreno
[2025-01-31] MEDS: AMOXICILLIN/POT CLAV 875 TABLET 1 TAB PO (23:23)
[2025-01-31] MEDS: MORPHINE SULF INJ 10 MG/ML VIAL 5 MG IM (23:24)
== END 2025-02-01 01:38 | disposition home or self-care (01) ==
LOC: SERX 23:29
PROVIDERS: Emergency Provider Emergency Medicine; PCP Nurse Practitioner Family
DX: K04.7 Periapical abscess without sinus (principal); Q05.9 Spina bifida, unspecified; Z99.3 Dependence on wheelchair; I10 Essential (primary) hypertension
CPT/HCPCS: 96372; 99283; J2270; A9270

== ENCOUNTER → 2025-02-05 | Outpatient (BNVA) | payer MEDICAID, SELFPAY | END | disposition home or self-care (01) | PROVIDERS: PCP Nurse Practitioner Family; Referring Provider Nurse Practitioner Family; Visit Provider Urology | DX: N20.0 Calculus of kidney (principal); Q05.9 Spina bifida, unspecified; Z99.3 Dependence on wheelchair; I10 Essential (primary) hypertension; Z98.2 Presence of cerebrospinal fluid drainage device; Z96.0 Presence of urogenital implants | CPT/HCPCS: 99212; G0463 ==

== ENCOUNTER 2025-02-28 21:56 | Emergency (ER) | payer MEDICAID, SELFPAY ==
[2025-02-28 21:56] VITALS: BMI 18.3
[2025-02-28 22:19] VITALS: BP 184/137; PULSE 118; RESP 18; TEMP 37.2; O2SAT 98
--- NOTE | 2025-02-28 22:44 | XR_ITS ---
Examination: AP chest single view Technique one AP portable upright chest single view Date and time: February 28, 2025, 11:41 PM Comparison January 13, 2025 INDICATIONS: Shortness of breath chest pain today. FINDINGS: Minimal subsegmental atelectasis right upper lobe Normal heart size Mild vascular congestion. No lobar pneumonia or pulmonary edema Partial visualization renal calculi IMPRESSION: No lobar pneumonia or pulmonary edema
--- NOTE | 2025-02-28 22:44 | XR_ITS ---
Examination: CT abdomen and pelvis without contrast. Coronal 3-D reconstructions. Sagittal 2-D reconstructions. Date and time of exam:On CT study January 13, 2025 January 28 2025 11:00 PM INDICATIONS: Abdominal pain and hematuria today. History large bilateral staghorn calculi CTDI: vol (mGy): 5.33 DLP: (mGycm): 274 Technique: Axial images of the abdomen have been obtained, 3 mm slice thickness Intravenous contrast material has not been administered. Low dose protocols were performed. One or more of the following dose reduction techniques were used; automated exposure control, adjustment of the mA and/or KV according to patient size, use of iterative reconstruction technique. Findings: No focal liver splenic lesions No gallstones No pancreatic mass Again noted large bilateral renal calculi mild bilateral hydronephrosis ureteral stents satisfactory position Aorta normal size No bowel obstruction Significant thickening of the urinary bladder wall Again noted large soft tissue defect extending posterior to the anus to the skin surface with soft tissue defect posterior to the right hip and posterior to the left ischium Again noted fluid collection posterior to the lower lumbar spine IMPRESSION: Bilateral large renal calculi, ureteral stents in satisfactory position with mild bilateral hydronephrosis Marked cystitis pattern
[2025-02-28 23:01] LABS: Lactate (Lactic Acid) 0.7 mMol/L (0.4-2.0)
[2025-02-28 23:08] LABS: Basophils # (Auto) 0.0 Thou/mm3 (0.0-0.2); Basophils % (Auto) 1 % (0-2.5); Eosinophils # (Auto) 0.1 Thou/mm3 (0.0-0.5); Eosinophils % (Auto) 1 % (0-10); Hematocrit 31.3 % (41.0-53.0); Hemoglobin 10.0 g/dL (13.5-16.0); Immature Granulocytes Auto 0.01 Thou/mm3 (0.00-0.00); Lymphocytes # (Auto) 0.7 Thou/mm3 (1.0-4.8); Lymphocytes % (Auto) 10 % (10-50); Mean Corpuscular HGB Conc 31.9 g/dl (31.0-37.0); Mean Corpuscular Hemoglobin 25.0 pg (25.0-35.0); Mean Corpuscular Volume 78 fL (80-100); Monocytes # (Auto) 0.5 Thou/mm3 (0.0-0.8); Monocytes % (Auto) 8 % (0-12); Neutrophils # (Auto) 5.0 Thou/mm3 (1.8-7.7); Neutrophils % (Auto) 80 % (37-80); Nucleated Red Blood Cell # 0.00 Thou/mm3 (0.00-0.00); Nucleated Red Blood Cell % 0 /100 WBC (0); Platelet Count 290 Thou/mm3 (140-440); RDW Standard Deviation 53.1 fL (35.1-43.9); Red Blood Count 4.00 Miln/mm3 (4.50-5.90); White Blood Count 6.2 Thou/mm3 (3.8-10.6)
[2025-02-28] MEDS: KETOROLAC INJ 30 MG/ML VIAL IVP (23:17)
[2025-02-28] MEDS: SODIUM CHLORIDE 0.9% 1000 ML 1,000 ML 999 ML IV (23:17)
[2025-02-28] MEDS: MORPHINE SULF INJ 10 MG/ML VIAL 4 MG IVP (23:19)
[2025-02-28] MEDS: ONDANSETRON INJ 2 MG/ML INJ 2 ML 4 MG IVP (23:20)
[2025-02-28 23:32] LABS: Collection Type, Urine Clean Catch
[2025-02-28 23:45] LABS: Bacteria,Urine 1+; Bilirubin,Urine Negative (Negative); Blood,Urine 3+ (Negative); Color,Urine Dark-Brown (Lt Yel-Yel); Glucose, Urine Negative (Negative); Ketones,Urine Negative (Negative); Leukocyte Esterase,Urine Positive (Negative); Nitrite,Urine Negative (Negative); PH,Urine 8.0 (5.0-7.0); Protein,Urine 3+ (Neg - Trace); RBC,Urine 2276 /hpf (0-3); Specific Gravity,Urine 1.012 (1.001-1.035); Squamous Epithelial Cell,Urine 6 /hpf (0-5); Urobilinogen,Urine Negative mg/dL (0.0-1.0); WBC,Urine 359 /hpf (0-5)
[2025-02-28 23:47] LABS: Sed Rate (ESR) 74 mm/hr (0-15)
[2025-02-28 23:48] LABS: Clarity,Urine Turbid (Clear/Hazy); Culture Indicated,Urine Yes
[2025-02-28 23:58] LABS: Alanine Aminotransferase < 7 U/L (10-49); Albumin, Serum 4.4 gm/dL (3.5-5.0); Albumin/Globulin Ratio 1.5 (1.2-2.2); Alkaline Phosphatase 107 U/L (46-116); Amylase 100 U/L (30-118); Anion Gap 13 (7-16); Aspartate Amino Transferase 11 U/L (0-34); BUN/Creatinine Ratio 13 Ratio (12-20); Bilirubin,Direct 0.2 mg/dL (0.0-0.3); Bilirubin,Total 0.7 mg/dL (0.3-1.2); Blood Urea Nitrogen 25 mg/dL (9-23); Calcium 9.3 mg/dL (8.3-10.6); Calcium (Corrected) 9.3 mg/dL (8.5-10.1); Carbon Dioxide 22.2 mMol/L (20.0-31.0); Chloride 97 mMol/L (98-107); Creatinine (Component) 2.0 mg/dL (0.6-1.3); Estimated Creatinine Clearance 36.4 mL/min (>60); Globulin 2.9 gm/dL (2.3-3.5); Glucose 117 mg/dL (74-106); Lipase 45 U/L (12-53); Magnesium 2.2 mg/dL (1.6-2.6); Osmolality,Calculated 269 (275-295); Potassium 2.9 mMol/L (3.4-5.1); Procalcitonin 0.17 ng/ml (0.0-0.49); Sodium 132 mMol/L (136-145); Total Protein 7.3 gm/dL (5.7-8.2); eGFR 44 See Note
--- NOTE | 2025-02-28 23:59 | PD.EDMALE ---
ED Male Genitalurinary RME/HPI General Chief complaint: Urogenital-Male Stated complaint: BLOOD IN URINE / HX OF KIDNEYS Time Seen by Provider: 02/28/25 22:36 Arrival date/time: 02/28/25 21:56 RME / HPI RME / HPI Narrative: This section includes all my notes and documentations, including HPI, PE, and ED course. Torsten Salinas MD HPI: 35 y/o wheelchair bound male with Hx of Spina Bifida, Hypertension, Kidney Stones and Neurogenic Bladder presents with bilateral flank pain and dysuria and hematuria for a couple of days. No fever or chills. Slight nausea. No vomiting. No other complaints. ROS: All negative except as documented in HPI. Physical Exam: General: Alert and oriented. Appears uncomfortable. High BP noted. Eyes: Conjunctivae and lids clear. ENT: No nasal congestion. Neck: Supple. Heart: Sinus tachycardia noted. Lungs: No respiratory distress. Good air movement. No rhonchi, wheezing, rales. Abdomen: Soft and nontender. Normal bowel sounds. No distension. No rebound or guarding. Back: No CVA tenderness. Skin: Warm and dry. Neuro: Alert and oriented X 3. I reviewed all diagnostic test results: My interpretation of the chest x-ray is: NAD. My review of the CT report is no acute findings. Blood tests remarkable for ESR 74, K 2.9, Cr 2.0 (chronic), and CRP 1.8. UA showed positive leukocyte Estrace, 2276 RBC, 359 WBC, and bacteria. Covid/Influenza: Negative. At this point, diagnoses include: Hypertension, UTI. Treatment here included: IVF (2 L), Toradol 30 mg, Morphine 4 mg X 2, Zofran 4 mg, oral clonidine0.2 mg, oral KCl 40 mEq, oral Lopressor 50 mg. He felt much better. Recommended outpatient care. Based on my best medical judgment, made decision no further evaluation or treatment indicated at this time. Patient understands and agrees to the discharge instructions customized and printed, see below. Discharge Instructions from Dr. Salinas printed for you: 1. After extensive evaluation, you have severe urinary tract infection. No passing kidney stones. 2. Cefdinir to kill the germs causing your infection. To flush your urine system, increase oral fluid and maintain clear urine. If dark or yellow or bloody, increase oral fluid. Zofran for nausea/vomiting. Tylenol with codeine for severe pain. 3. To lower your BP, take metoprolol ER 100 mg twice daily, as prescribed. And Clonidine 0.1 mg pill(s) every 12 hours as needed based on SBP (higher number of BP). SBP > 140, take one pill. SBP > 160, take two pills. SBP > 180, take three pills. SBP > 200, take four pills. You will live longer with lower BP and slower heart rate. 4. See a private doctor on 03/04/2025 for recheck and further care. Ask to review all test results and official radiology reports, to make sure you receive all necessary follow-ups and monitoring, including final urine culture results from today. Ask for help until you are completely better. 5. Seek immediate medical care with worsening or with any concerns. Torsten Salinas MD Related Data Home Medications ?Medication ?Instructions ?Recorded ?Confirmed amlodipine 10 mg tablet 10 mg PO DAILY 06/06/24 02/05/25 hydromorphone 2 mg tablet 2 mg PO TID PRN Pain 06/06/24 02/05/25 clonidine HCl 0.1 mg tablet 0.1 mg PO BID 01/14/25 02/05/25 losartan 25 mg tablet 25 mg PO DAILY 01/14/25 02/05/25 Previous Rx's ?Medication ?Instructions ?Recorded acetaminophen 300 mg-codeine 30 mg 2 tab PO Q8H PRN pain #20 tabs 03/01/25 tablet cefdinir 300 mg capsule 300 mg PO BID #14 caps 03/01/25 clonidine HCl 0.1 mg tablet 0.1 mg PO BID #60 tabs 03/01/25 metoprolol succinate 100 mg 100 mg PO BID #60 tabs 03/01/25 tablet,extended release 24 hr ondansetron 4 mg disintegrating 4 mg PO TID PRN nausea and 03/01/25 tablet vomiting 30 days #10 tabs Allergies Allergy/AdvReac Type Severity Reaction Status Date / Time latex Allergy Severe RASH Verified 02/05/25 11:03 Review of Systems Review of Systems Systems Reviewed: All systems reviewed, normal except as documented Past Medical History Past Medical History NEUROLOGIC: Positive Neurological Disorders, Spina Bifida and Migraine CARDIAC: Positive Cardiac Disorders and Hypertension GENITOURINARY: Positive Genitourinary Disorders, Kidney Stones and Neurogenic Bladder MUSCULOSKELETAL: Positive Musculoskeletal Disorders and Fractures (LEFT LEG) HEMATOLOGIC: Positive Blood Disorders PSYCHO/SOCIAL: Positive Depression (PER PT NOT DIAGNOSED) and Anxiety OTHER HISTORY: Positive Hospitalization, Blood Transfusions and Chicken Pox Family History FAMILY HISTORY: Positive Family Surgery Surgical History SURGICAL: Positive Brain Shunt Social History SUBSTANCE USE: marijuana ED Exam Narrative Physical exam: Refer to HPI above Course Course Course Narrative: CXR is ordered for determining the etiology of shortness of breath. Quality Measures none Orders Category Date Time Status Bedside COVID-19 Antigen Test NOW Care 02/28/25 22:43 Active Bedside Influenza A&B Antigen Test NOW Care 02/28/25 22:43 Completed Baker [Urinary Catheter] QS Care 02/28/25 23:11 Active Baker to [place] Routine Care 02/28/25 22:43 Ordered Saline [Insert IV] NOW Care 02/28/25 22:[address] abdomen pelvis wo con Stat Exams 02/28/25 22:44 Completed XR chest 1V portable Stat Exams 02/28/25 22:44 Completed Amylase Stat Lab 02/28/25 22:55 Completed Bilirubin,Direct Stat Lab 02/28/25 22:55 Completed Blood Culture (Lab) Stat Lab 02/28/25 22:59 Received CBC Stat Lab 02/28/25 22:55 Completed CMP [Comprehensive Metabolic Panel] Stat Lab 02/28/25 22:55 Completed CRP [C-Reactive Protein] Stat Lab 02/28/25 22:55 Completed ESR [Sed Rate (ESR)] Stat Lab 02/28/25 22:55 Completed Lactate (Lactic Acid) Stat Lab 02/28/25 22:55 Completed Lipase Stat Lab 02/28/25 22:55 Completed Magnesium Stat Lab 02/28/25 22:55 Completed Procalcitonin Stat Lab 02/28/25 22:55 Completed UA, C/S IF [Urinalysis, C/S if Indicated] Stat Lab 02/28/25 23:28 Completed Urine Culture Stat Lab 02/28/25 23:28 Received KCL 10% Liq UDC 15 ML Med 03/01/25 00:00 Discontinued 40 meq PO X1 ONE Ketorolac Inj [Toradol Inj] Med 02/28/25 22:43 Discontinued 30 mg IVP X1 ONE Metoprolol Tartrate [Lopressor] Med 03/01/25 00:22 Discontinued 50 mg PO X1 ONE Morphine Inj Med 02/28/25 22:43 Discontinued 4 mg IVP X1 ONE Morphine Inj Med 03/01/25 00:22 Discontinued 4 mg IVP X1 ONE Ondansetron Inj [Zofran Inj] Med 02/28/25 22:43 Discontinued 4 mg IVP X1 ONE Ringers Lactated 1000 ml [Lactated Ringers] 1,000 ml Med 03/01/25 00:02 Discontinued IV 1,000 mls/hr Sodium Chloride 0.9% 1000 ml [Ns] 1,000 ml Med 02/28/25 22:43 Discontinued IV 999 mls/hr cefTRIAXone/D5w 1gm IV premix [Rocephin/D5w 1gm IV Med 03/01/25 00:02 Discontinued premix] 1 gm in 50 ml IV X1 cloNIDine HCL [Catapres] Med 03/01/25 00:22 Discontinued 0.2 mg PO X1 ONE Vital Signs Vital signs: Vital Signs Temperature 99 F 02/28/25 22:19 Pulse Rate 118 H 02/28/25 22:19 Respiratory Rate 18 02/28/25 22:19 Blood Pressure 184/137 H 02/28/25 22:19 Pulse Oximetry (%) 98 02/28/25 22:19 Oxygen Delivery Method Room Air 02/28/25 22:19 Urogenital - Male MDM Narrative MDM Narrative:: Scribe Attestation: Rubi Valiente am scribing for and in the presence of Dr. Salinas. Provider Notation: Although this document has been carefully reviewed, there may still be some phonetic and other typographical errors.? These errors are purely grammatical due to imperfections in the software program and should not be construed in any way to? compromise the substance of the patient's medical care during this visit. 35 y/o wheelchair bound male with Hx of Spina Bifida, Hypertension, Kidney Stones and Neurogenic Bladder presents with bilateral flank pain and dysuria and hematuria for a couple of days. No fever or chills. Slight nausea. No vomiting. No other complaints. Patient data External records reviewed:: [facility] previous records (Reviewed prior ED records from 01/31/25. Patient was seen for Dental infection.) Clinical information provided by:: patient Social determinants that could affect healthcare access:: none Patient has the following chronic illnesses:: Spina Bifida, Migraine, Hypertension, Kidney Stones and Neurogenic Bladder How is presenting disease/condition affected by chronic disease/condition?: exacerbated by Evaluation data The following diagnostics were reviewed and interpreted by me:: lab results and radiology exam(s) Lab and/or radiology exams considered but not ordered:: None Interpretation Summary: I reviewed all diagnostic test results: My interpretation of the chest x-ray is: NAD. My review of the CT report is no acute findings. Blood tests remarkable for ESR 74, K 2.9, Cr 2.0 (chronic), and CRP 1.8. UA showed positive leukocyte Estrace, 2276 RBC, 359 WBC, and bacteria. Covid/Influenza: Negative. Medications / Prescriptions Medications or Prescriptions considered but not ordered:: None Medication administrations:: Medication Administration History Discontinued Medications Clonidine (Clonidine Hcl 0.1 Mg Tablet) 0.2 mg PO X1 ONE Stop: 03/01/25 00:23 Last Admin: 03/01/25 00:40 Dose: 0.2 mg Documented By: SUSANNAH Sodium Chloride (Ns) 1,000 mls @ 999 mls/hr IV .Q1H1M ONE Stop: 02/28/25 23:43 Last Infusion: 03/01/25 01:00 Dose: Infused Documented By: Admin: 02/28/25 23:17 Dose: 999 mls/hr Documented By: SUSANNAH Ceftriaxone Sodium/Dextrose (Rocephin/D5w 1gm Iv Premix) 1 gm in 50 mls @ 100 mls/hr IV X1 ONE Stop: 03/01/25 00:31 Last Infusion: 03/01/25 00:51 Dose: Infused Documented By: Admin: 03/01/25 00:19 Dose: 100 mls/hr Documented By: SUSANNAH Lactated Ringer's (Lactated Ringers) 1,000 mls @ 1,000 mls/hr IV .Q1H ONE Stop: 03/01/25 01:01 Last Infusion: 03/01/25 02:28 Dose: Infused Documented By: Admin: 03/01/25 01:06 Dose: 1,000 mls/hr Documented By: SUSANNAH Ketorolac Tromethamine (Ketorolac Inj 30 Mg/Ml Vial) 30 mg IVP X1 ONE Stop: 02/28/25 22:44 Last Admin: 02/28/25 23:17 Dose: 30 mg Documented By: SUSANNAH Metoprolol Tartrate (Metoprolol Tartrate 25 Mg Tablet) 50 mg PO X1 ONE Stop: 03/01/25 00:23 Last Admin: 03/01/25 00:42 Dose: 50 mg Documented By: SUSANNAH Morphine Sulfate (Morphine Sulf Inj 10 Mg/Ml Vial) 4 mg IVP X1 ONE Stop: 02/28/25 22:44 Last Admin: 02/28/25 23:19 Dose: 4 mg Documented By: SUSANNAH Morphine Sulfate (Morphine Sulf Inj 10 Mg/Ml Vial) 4 mg IVP X1 ONE Stop: 03/01/25 00:23 Last Admin: 03/01/25 00:42 Dose: 4 mg Documented By: SUSANNAH Ondansetron HCl (Ondansetron Inj 2 Mg/Ml Inj 2 Ml) 4 mg IVP X1 ONE; Protocol Stop: 02/28/25 22:44 Last Admin: 02/28/25 23:20 Dose: 4 mg Documented By: SUSANNAH Potassium Chloride (Potassium Chloride 10% 20 Meq/15 Ml Udc) 40 meq PO X1 ONE Stop: 03/01/25 00:01 Last Admin: 03/01/25 00:17 Dose: 40 meq Documented By: SUSANNAH Treatment here included: IVF (2 L), Toradol 30 mg, Morphine 4 mg X 2, Zofran 4 mg, oral clonidine0.2 mg, oral KCl 40 mEq, oral Lopressor 50 mg. Consultations Consultation(s) initiated? (list below): No Diagnosis Urogenital Male Differential Diagnosis: urinary tract infection, urethritis, epididymitis, genital herpes simplex, prostatitis, acute retention of urine and inguinal hernia Most likely diagnosis given after review of the tests above:: Hypertension, UTI Admission Indicated Admission indicated?: not indicated Explain why admission is indicated or not indicated:: With significant improvement and no condition needing emergent intervention, there was no indication for admission. Admission Request Was there a request for admission?: No Disposition Plan Disposition Plan: Discharge Discharge Attestation Discharge Attestation: The patient and all family members were given an opportunity to ask questions and understood the discharge instructions. Discharge instructions specifically effects, indications for sooner follow up or return to the emergency department, and the expected course of current diagnosis. Patient condition: Stable Discharge Plan Plan Patient Disposition: HOME (Self Care) Prescriptions/Referrals Prescriptions/Med Rec: New clonidine HCl 0.1 mg tablet 0.1 mg PO BID Qty: 60 0RF acetaminophen-codeine 300-30 mg tablet 2 tab PO Q8H MDD 6 PRN (Reason: pain) Qty: 20 0RF ondansetron 4 mg tablet,disintegrating 4 mg PO TID PRN (Reason: nausea and vomiting) 30 Days Qty: 10 0RF cefdinir 300 mg capsule 300 mg PO BID Qty: 14 0RF metoprolol succinate 100 mg tablet extended release 24 hr 100 mg PO BID Qty: 60 0RF No Action amlodipine 10 mg tablet 10 mg PO DAILY Patient Comments: TAKE 1 TABLET BY MOUTH EVERY DAY hydromorphone 2 mg tablet 2 mg PO TID PRN (Reason: Pain) Patient Comments: TAKE 1 TABLET BY MOUTH THREE TIMES A DAY NEEDED Rx Instructions: kidney pain losartan 25 mg tablet 25 mg PO DAILY Patient Comments: TAKE 1 TABLET BY MOUTH EVERY DAY clonidine HCl 0.1 mg tablet 0.1 mg PO BID Patient Comments: TAKE 1 TABLET BY MOUTH TWICE A DAY Referrals: Temporary Provider,ED [Physician] - In 1 week Problem List Clinical Impression: UTI (urinary tract infection), Hypertension Patient/Caregiver Discharge Instructions Discharge Activity: activity as tolerated Education Materials: ED Hypertension, Established, ED Bladder Infection, Male (Adult) Additional Instructions: Discharge Instructions from Dr. Salinas printed for you: 1. After extensive evaluation, you have severe urinary tract infection. No passing kidney stones. 2. Cefdinir to kill the germs causing your infection. To flush your urine system, increase oral fluid and maintain clear urine. If dark or yellow or bloody, increase oral fluid. Zofran for nausea/vomiting. Tylenol with codeine for severe pain. 3. To lower your BP, take metoprolol ER 100 mg twice daily, as prescribed. And Clonidine 0.1 mg pill(s) every 12 hours as needed based on SBP (higher number of BP). SBP > 140, take one pill. SBP > 160, take two pills. SBP > 180, take three pills. SBP > 200, take four pills. You will live longer with lower BP and slower heart rate. 4. See a private doctor on 03/04/2025 for recheck and further care. Ask to review all test results and official radiology reports, to make sure you receive all necessary follow-ups and monitoring, including final urine culture results from today. Ask for help until you are completely better. 5. Seek immediate medical care with worsening or with any concerns. Print Language: [place] Stand Alone Forms: Leyla Award Info., Patient Portal Info Letter
[2025-03-01] MEDS: POTASSIUM CHLORIDE 10% 20 MEQ/15 ML UDC 40 MEQ PO (00:17)
[2025-03-01 00:19] LABS: C-Reactive Protein 1.8 mg/dL (0.0-0.9)
[2025-03-01] MEDS: cefTRIAXone/D5w 1gm IV premix 1 GM/50 ML BAG IV (00:19)
[2025-03-01 00:40] VITALS: BP 177/124; PULSE 108
[2025-03-01 00:42] VITALS: BP 177/124; PULSE 108
[2025-03-01] MEDS: MORPHINE SULF INJ 10 MG/ML VIAL 4 MG IVP (00:42)
[2025-03-01] MEDS: METOPROLOL TARTRATE 25 MG TABLET 50 MG PO (00:42)
[2025-03-01] MEDS: RINGERS LACTATED 1000 ML 1,000 ML IV (01:06)
[2025-03-01 01:32] VITALS: BP 185/125; PULSE 108; RESP 18; TEMP 36.6; O2SAT 96
[2025-03-01 03:20] VITALS: BP 178/122; PULSE 83; RESP 18; TEMP 36.7; O2SAT 97
[2025-03-01 03:22] VITALS: BP 178/122; PULSE 83; RESP 18; TEMP 36.7; O2SAT 97
== END 2025-03-01 03:26 | disposition home or self-care (01) ==
PROVIDERS: Emergency Provider Emergency Medicine; PCP Nurse Practitioner Family
DX: N39.0 Urinary tract infection, site not specified (principal); R31.9 Hematuria, unspecified; I10 Essential (primary) hypertension; R06.02 Shortness of breath; R07.9 Chest pain, unspecified
CPT/HCPCS: 51702; 36415; 71045; 74176; 80053; 81001; 82150; 82248; 83605; 83690; 83735; 84145; 85025; 85652; 86140; 87040; 87077; 87086; 87186; 87400; 87811; 96361; 96365; 96375; 96376; 99283; A4314; J0696; J1885; J2270; J2405; J7030; J7120; A9270

== ENCOUNTER 2025-03-02 02:18 | Emergency (ER) | payer MEDICAID, SELFPAY ==
[2025-03-02 02:26] VITALS: BP 178/127; PULSE 107; RESP 18; TEMP 36.9; O2SAT 99; BMI 24.4
--- NOTE | 2025-03-02 02:47 | PD.EDRME ---
Rapid Medical Screening Exam [facility] Arrival date/time: 03/02/25 02:18 35M with extensive PMH including spina bifida (wheelchair-bound), [employer] shunt, recurrent UTI/kidney stones (self-cath), and HTN presents to ED with gen ab/flank pain and dysuria. Patient was here several days ago for this. Chief Complaint: Abdominal Pain Vital signs: Vital Signs Temperature 98.4 F 03/02/25 02:26 Pulse Rate 107 H 03/02/25 02:26 Respiratory Rate 18 03/02/25 02:26 Blood Pressure 178/127 H 03/02/25 02:26 Pulse Oximetry (%) 99 03/02/25 02:26 Oxygen Delivery Method Room Air 03/02/25 02:26
[2025-03-02 03:54] LABS: Lactate (Lactic Acid) 0.9 mMol/L (0.4-2.0)
[2025-03-02 04:17] LABS: Basophils # (Auto) 0.0 Thou/mm3 (0.0-0.2); Basophils % (Auto) 0 % (0-2.5); Eosinophils # (Auto) 0.1 Thou/mm3 (0.0-0.5); Eosinophils % (Auto) 1 % (0-10); Hematocrit 27.7 % (41.0-53.0); Immature Granulocytes Auto 0.01 Thou/mm3 (0.00-0.00); Lymphocytes # (Auto) 0.6 Thou/mm3 (1.0-4.8); Lymphocytes % (Auto) 7 % (10-50); Mean Corpuscular HGB Conc 31.4 g/dl (31.0-37.0); Mean Corpuscular Hemoglobin 25.2 pg (25.0-35.0); Mean Corpuscular Volume 80 fL (80-100); Monocytes # (Auto) 0.5 Thou/mm3 (0.0-0.8); Monocytes % (Auto) 6 % (0-12); Neutrophils # (Auto) 6.5 Thou/mm3 (1.8-7.7); Neutrophils % (Auto) 85 % (37-80); Nucleated Red Blood Cell # 0.00 Thou/mm3 (0.00-0.00); Nucleated Red Blood Cell % 0 /100 WBC (0); Platelet Count 275 Thou/mm3 (140-440); RDW Standard Deviation 56.2 fL (35.1-43.9); Red Blood Count 3.45 Miln/mm3 (4.50-5.90); White Blood Count 7.6 Thou/mm3 (3.8-10.6)
[2025-03-02 04:20] LABS: Hemoglobin 8.7 g/dL (13.5-16.0)
[2025-03-02 04:35] LABS: Alanine Aminotransferase < 7 U/L (10-49); Albumin, Serum 3.7 gm/dL (3.5-5.0); Albumin/Globulin Ratio 1.5 (1.2-2.2); Alkaline Phosphatase 89 U/L (46-116); Anion Gap 10 (7-16); Aspartate Amino Transferase 11 U/L (0-34); BUN/Creatinine Ratio 11 Ratio (12-20); Bilirubin,Total 0.5 mg/dL (0.3-1.2); Blood Urea Nitrogen 23 mg/dL (9-23); Calcium 8.4 mg/dL (8.3-10.6); Calcium (Corrected) 8.6 mg/dL (8.5-10.1); Carbon Dioxide 21.9 mMol/L (20.0-31.0); Chloride 102 mMol/L (98-107); Creatinine (Component) 2.1 mg/dL (0.6-1.3); Estimated Creatinine Clearance 29.9 mL/min (>60); Globulin 2.4 gm/dL (2.3-3.5); Glucose 109 mg/dL (74-106); Magnesium 2.1 mg/dL (1.6-2.6); Osmolality,Calculated 272 (275-295); Potassium 3.2 mMol/L (3.4-5.1); Procalcitonin 0.10 ng/ml (0.0-0.49); Sodium 134 mMol/L (136-145); Total Protein 6.1 gm/dL (5.7-8.2); eGFR 41 See Note
[2025-03-02] MEDS: ONDANSETRON INJ 2 MG/ML INJ 2 ML 4 MG IVP (04:57)
[2025-03-02] MEDS: MORPHINE SULF INJ 10 MG/ML VIAL 5 MG IVP (04:59)
[2025-03-02] MEDS: RINGERS LACTATED 1000 ML 1,000 ML 999 ML IV (05:00)
[2025-03-02] MEDS: cefTRIAXone/D5w 1gm IV premix 1 GM/50 ML BAG IV (05:07)
[2025-03-02 05:42] VITALS: BP 184/138; PULSE 101; RESP 18; O2SAT 98
--- NOTE | 2025-03-02 06:32 | PC.NURSE ---
pt self caths
[2025-03-02 07:09] VITALS: BP 182/124; PULSE 105; RESP 19; TEMP 37; O2SAT 95
--- NOTE | 2025-03-02 07:25 | PD.EDADULT ---
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 Patient was here several days ago for this. DR. 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 He reports nausea without vomiting. Denies fever, chills, or other associated symptoms. States he thinks he has a bad UTI today. Patient is currently taking Dilaudid tablets prescribed by his PCP (2 mg, four times daily). Related Data Home Medications ?Medication ?Instructions ?Recorded ?Confirmed amlodipine 10 mg tablet 10 mg PO DAILY 06/06/24 02/05/25 hydromorphone 2 mg tablet 2 mg PO TID PRN Pain 06/06/24 02/05/25 clonidine HCl 0.1 mg tablet 0.1 mg PO BID 01/14/25 02/05/25 losartan 25 mg tablet 25 mg PO DAILY 01/14/25 02/05/25 Previous Rx's ?Medication ?Instructions ?Recorded acetaminophen 300 mg-codeine 30 mg 2 tab PO Q8H PRN pain #20 tabs 03/01/25 tablet cefdinir 300 mg capsule 300 mg PO BID #14 caps 03/01/25 clonidine HCl 0.1 mg tablet 0.1 mg PO BID #60 tabs 03/01/25 metoprolol succinate 100 mg 100 mg PO BID #60 tabs 03/01/25 tablet,extended release 24 hr ondansetron 4 mg disintegrating 4 mg PO TID PRN nausea and 03/01/25 tablet vomiting 30 days #10 tabs amoxicillin 875 mg-potassium 1 tab PO BID #20 tabs 03/02/25 clavulanate 125 mg tablet Allergies Allergy/AdvReac Type Severity Reaction Status Date / Time latex Allergy Severe RASH Verified 03/02/25 02:19 Review of Systems Review of Systems Systems Reviewed: All systems reviewed, normal except as documented Past Medical History Past Medical History NEUROLOGIC: Positive Neurological Disorders, Spina Bifida and Migraine CARDIAC: Positive Cardiac Disorders and Hypertension GENITOURINARY: Positive Genitourinary Disorders, Kidney Stones and Neurogenic Bladder MUSCULOSKELETAL: Positive Musculoskeletal Disorders and Fractures PSYCHO/SOCIAL: Positive Depression and Anxiety Family History FAMILY HISTORY: Positive Family Surgery; Negative Family Psychiatric Problems, Family Respiratory Disorders, Family Cardiac Disorders, Family Gastrointestinal Problems, Family Cancer or Family Anesthesia Reaction Surgical History SURGICAL: Positive Brain Shunt; Negative Cardiac Surgery, Open Heart Surgery, Coronary Artery Bypass Graft, Valve Replacement, Vascular Surgery, Coronary Stent, Cardiac Catheterization, Pacemaker, Angiogram, Auto Implanted Cardiovert Defib, Carotid Endarterectomy, Endocrine Surgery, Thyroidectomy, Ear Surgery, Tympanostomy Tube, Eye Surgery, Nose Surgery, Oral Surgery, Tonsillectomy, Adenoidectomy, Cochlear Implant, Corneal Transplant, Throat Surgery, Abdominal Surgery, Tracheostomy, Gastric Bypass Surgery, Gastrostomy, Bowel Surgery, Nephrectomy, Transurethral Resection, Joint Replacement, Amputation, Open Reduction Internal Fixation, Arthroscopy, Neurologic Surgery, Mastectomy, Lumpectomy, Hysterectomy, Tubal Ligation, Section or Vasectomy Social History SMOKING STATUS: Current some day smoker SECOND HAND EXPOSURE: No SUBSTANCE USE: marijuana ED Exam Narrative Physical exam: Physical Exam: General: The vital signs were reviewed. Patient is got spina bifida atrophic extremities the patient is non-toxic, in no apparent distress and appears healthy with a patent airway, no respiratory distress and has no apparent circulatory problems. Head & Scalp: Normocephalic, atraumatic. Face: Appears normal and is without lesions, deformity. Ears: Left external pinna appears normal. Right external pinna appears normal. Eyes: The sclera is anicteric. No obvious photophobia. The Left and Right Orbit/Lid/Conjunctiva appears normal without swelling, discoloration or injection. Nose: The nose is without deformity, discharge or tenderness; Throat: Appears normal. The mucous membranes are pink and moist without exudates, redness or mass seen. The tongue appears normal. Neck: The neck is supple and no apparent mass or adenopathy. Chest: The chest wall is normal in size and symmetry and has no chest wall tenderness or crepitus. The patient displays normal ventilator effort without retractions, accessory muscle use and has adequate air movement bilaterally with no wheezes and no rales. Cardiovascular: Regular rate and rhythm; No murmurs, rubs, or gallops; Gastrointestinal: The abdomen appears normal. No obvious hernias or mass. The abdomen is soft and benign, non-distended, with no pain, no guarding and no rebound tenderness. Bowel sounds are present and normal sounding. No CVA tenderness. Genitourinary: Back/Spine: Normal inspection Extremities/Musculoskeletal/lymphatic: The bilateral upper and lower extremities are warm. There is no evidence of arterial insufficiency. There is no evidence of venous insufficiency/edema. The patient has atrophic lower extremities upper extremities move normally. Skin: The skin is warm, dry and intact. No rashes. No petechia. No purpura. No abnormal bruising. The color is appropriate with no cyanosis. Mental status/Psychiatric: Mental status is appropriate for age. The patient has no apparent delusions, visual hallucinations, no apparent audible hallucinations. The patient has no apparent suicidal thoughts/ideation and no apparent homicidal thoughts/ideation. Neurological: The patient is awake, alert, interactive, cordial, cooperative and is oriented to name and situation. The patient follows commands and answers historical question with no impairment. There is no visual disturbance apparent. The pupils are equal and reactive bilaterally with normal eye movements and no diplopia The bilateral upper and lower extremities have normal strength, normal range of motion and normal functioning. The gait, station and balance appear to be baseline with no acute change Patient has got atrophic lower extremities Course Quality Measures none Orders Category Date Time Status Insert IV NOW Care 03/02/25 02:45 Completed Straight [In and Out Catheter] X1 Care 03/02/25 05:26 Completed CBC Stat Lab 03/02/25 03:44 Completed CMP [Comprehensive Metabolic Panel] Stat Lab 03/02/25 03:44 Completed Lactate (Lactic Acid) Stat Lab 03/02/25 03:44 Completed Mag [Magnesium] Stat Lab 03/02/25 03:44 Completed Procalcitonin Stat Lab 03/02/25 03:44 Completed UA, C/S IF [Urinalysis, C/S if Indicated] Stat Lab 03/02/25 07:38 Completed Urine Culture Stat Lab 03/02/25 07:38 Received Hydromorphone HCl [Dilaudid] Med 03/02/25 09:13 Discontinued 2 mg PO X1 ONE Morphine Inj Med 03/02/25 02:45 Discontinued 5 mg IVP X1 ONE Ondansetron Inj [Zofran Inj] Med 03/02/25 02:45 Discontinued 4 mg IVP X1 ONE Ringers Lactated 1000 ml [Lactated Ringers] 1,000 ml Med 03/02/25 02:45 Discontinued IV 999 mls/hr cefTRIAXone/D5w 1gm IV premix [Rocephin/D5w 1gm IV Med 03/02/25 04:57 Discontinued premix] 1 gm in 50 ml IV X1 Vital Signs Vital signs: Vital Signs Temperature 98.4 F 03/02/25 02:26 Pulse Rate 107 H 03/02/25 02:26 Respiratory Rate 18 03/02/25 02:26 Blood Pressure 178/127 H 03/02/25 02:26 Pulse Oximetry (%) 99 03/02/25 02:26 Oxygen Delivery Method Room Air 03/02/25 02:26 Discharge Plan Plan Patient Disposition: HOME (Self Care) Prescriptions/Referrals Prescriptions/Med Rec: New amoxicillin-pot clavulanate 875-125 mg tablet 1 tab PO BID Qty: 20 0RF No Action amlodipine 10 mg tablet 10 mg PO DAILY Patient Comments: TAKE 1 TABLET BY MOUTH EVERY DAY hydromorphone 2 mg tablet 2 mg PO TID PRN (Reason: Pain) Patient Comments: TAKE 1 TABLET BY MOUTH THREE TIMES A DAY NEEDED Rx Instructions: kidney pain clonidine HCl 0.1 mg tablet 0.1 mg PO BID Qty: 60 0RF acetaminophen-codeine 300-30 mg tablet 2 tab PO Q8H MDD 6 PRN (Reason: pain) Qty: 20 0RF ondansetron 4 mg tablet,disintegrating 4 mg PO TID PRN (Reason: nausea and vomiting) 30 Days Qty: 10 0RF cefdinir 300 mg capsule 300 mg PO BID Qty: 14 0RF metoprolol succinate 100 mg tablet extended release 24 hr 100 mg PO BID Qty: 60 0RF losartan 25 mg tablet 25 mg PO DAILY Patient Comments: TAKE 1 TABLET BY MOUTH EVERY DAY clonidine HCl 0.1 mg tablet 0.1 mg PO BID Patient Comments: TAKE 1 TABLET BY MOUTH TWICE A DAY Referrals: Vandana Sears [employer] [Primary Care Provider] - In 1 week Problem List Clinical Impression: UTI (urinary tract infection), Chronic pain, Chronic paraplegia Impression comment: As we discussed your urine is infected chronically and its infected again today. Your recent urine culture reveals that amoxicillin with clavulanic acid was sensitive. A prescription for this medicine was sent to your pharmacy. Please fill this and start taking as directed Contact your doctor for reevaluation in 2 days to make sure that your urine culture shows that this medicine is appropriate and also return if you are getting worse in any way with fever vomiting. All your chronic pain medicines must come from your regular doctor as we discussed. Patient/Caregiver Discharge Instructions Additional Instructions: As we discussed your urine is infected chronically and its infected again today. Your recent urine culture reveals that amoxicillin with clavulanic acid was sensitive. A prescription for this medicine was sent to your pharmacy. Please fill this and start taking as directed Contact your doctor for reevaluation in 2 days to make sure that your urine culture shows that this medicine is appropriate and also return if you are getting worse in any way with fever vomiting. All your chronic pain medicines must come from your regular doctor as we discussed. Print Language: Panamanian Stand Alone Forms: Leyla Award Info., Patient Portal Info Letter MDM Narrative [facility] hospital course: I, Katherine Benitez, am scribing for and in the presence of Dr. Caldwell. Patient has chronic paraplegia from spina bifida from childhood with lower extremity atrophy self-catheterization with frequent urine and chronic opioid dependence for chronic pain taking Dilaudid 2 mg 4 tablets a day on average. Patient has no fever today. He is a little tacky at 89 states this is related to his pain. I had a long discussion with the patient about his chronic pain and opioid dependence and told him he to have to live with his oral Dilaudid as a source of pain control. His urine came back again with chronic pyuria with 452 white cells but this is actually less than the last time he was here. But he averages anywhere from 100s to 500 700 white blood cells per high-power field on his most recent urines. Last culture shows Proteus mirabilis was resistant to most oral agents except Augmentin and evidently was admitted to the hospital at that time and then went home on some pill but does not know the name. Trying to reach his doctor at the clinic at this hour but so far no callback at 1235 hrs. Patient appears to be afebrile can explain his mild tachycardia but he knows he is going to have to live with his Dilaudid tablets which she has and he knows to return if he is getting febrile or worse in any way. Patient received 1 dose of ceftriaxone here earlier and he can continue with some Augmentin as an outpatient until he follows with his doctor to follow-up on the culture results. 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, recurrent urinary tract infections, bilateral staghorn calculi status post bilateral ureteral stents, primary hypertension, and chronic anemia EKG EKG not done Lab Interpretation Labs: see narrative above Imaging Imaging interpretation: none Medication Administration(s) Medication Administration History Discontinued Medications Hydromorphone HCl (Hydromorphone Hcl 2 Mg Tablet) 2 mg PO X1 ONE Stop: 03/02/25 09:14 Last Admin: 03/02/25 09:25 Dose: 2 mg Documented By: LIOR Lactated Ringer's (Lactated Ringers) 1,000 mls @ 999 mls/hr IV .Q1H1M ONE Stop: 03/02/25 03:45 Last Infusion: 03/02/25 06:19 Dose: Infused Documented By: LIOR(2) Admin: 03/02/25 05:00 Dose: 999 mls/hr Documented By: SURESH Ceftriaxone Sodium/Dextrose (Rocephin/D5w 1gm Iv Premix) 1 gm in 50 mls @ 100 mls/hr IV X1 ONE Stop: 03/02/25 05:26 Last Infusion: 03/02/25 05:40 Dose: Infused Documented By: LIOR(2) Admin: 03/02/25 05:07 Dose: 100 mls/hr Documented By: CVL Morphine Sulfate (Morphine Sulf Inj 10 Mg/Ml Vial) 5 mg IVP X1 ONE Stop: 03/02/25 02:46 Last Admin: 03/02/25 04:59 Dose: 5 mg Documented By: SURESH Ondansetron HCl (Ondansetron Inj 2 Mg/Ml Inj 2 Ml) 4 mg IVP X1 ONE; Protocol Stop: 03/02/25 02:46 Last Admin: 03/02/25 04:57 Dose: 4 mg Documented By: CVL Diagnosis Differential diagnosis: complicated UTI, pyelonephritis, obstructive uropathy due to kidney stones Most likely dx, and/or detailed dx discussion: UTI Chronic pain Chronic paraplegia Dispositon Disposition: Discharge Home
--- NOTE | 2025-03-02 07:43 | PC.NURSE ---
IN ROOM TO COMPLETE ASSESSMENT, INTRODUCED SELF, PATIENT WITH COMPLAINT OF LOWER ABDOMINAL PAIN FOR 3 DAYS. PATIENT PROVIDED URINE. WILL CONTINUE TO MONITOR.
[2025-03-02] MEDS: HYDROMORPHONE HCL 2 MG TABLET PO (09:25)
[2025-03-02 09:26] VITALS: BP 184/99; PULSE 102; RESP 20; O2SAT 98
[2025-03-02 09:32] LABS: Collection Type, Urine Catheter
[2025-03-02 10:41] LABS: Bacteria,Urine Rare; Bilirubin,Urine Negative (Negative); Blood,Urine 3+ (Negative); Clarity,Urine Turbid (Clear/Hazy); Color,Urine Colorless (Lt Yel-Yel); Culture Indicated,Urine Yes; Glucose, Urine Negative (Negative); Hyaline Casts,Urine < 1 /hpf (0-1); Ketones,Urine Negative (Negative); Leukocyte Esterase,Urine Positive (Negative); Nitrite,Urine Negative (Negative); PH,Urine 7.0 (5.0-7.0); Protein,Urine 1+ (Neg - Trace); RBC,Urine 30 /hpf (0-3); Specific Gravity,Urine 1.006 (1.001-1.035); Squamous Epithelial Cell,Urine 1 /hpf (0-5); Urobilinogen,Urine Negative mg/dL (0.0-1.0); WBC,Urine 452 /hpf (0-5)
== END 2025-03-02 13:41 | disposition home or self-care (01) ==
PROVIDERS: Physician Assistant; Emergency Provider Emergency Medicine; PCP Nurse Practitioner Family
DX: N39.0 Urinary tract infection, site not specified (principal); G89.29 Other chronic pain; G82.20 Paraplegia, unspecified
CPT/HCPCS: 36415; 80053; 81001; 83605; 83735; 84145; 85025; 87077; 87086; 87186; 96361; 96365; 96375; 99284; J0696; J2270; J2405; J7120; A9270

== ENCOUNTER 2025-04-02 18:18 | Inpatient (IN) | payer MEDICAID, SELFPAY ==
[2025-04-02 18:48] VITALS: BP 197/136; PULSE 114; RESP 16; TEMP 37.6; O2SAT 100
[2025-04-02 19:45] LABS: Collection Type, Urine Clean Catch
[2025-04-02 19:56] LABS: Lactate (Lactic Acid) 0.9 mMol/L (0.4-2.0)
[2025-04-02 19:57] LABS: Basophils # (Auto) 0.0 Thou/mm3 (0.0-0.2); Basophils % (Auto) 0 % (0-2.5); Eosinophils # (Auto) 0.1 Thou/mm3 (0.0-0.5); Eosinophils % (Auto) 1 % (0-10); Hematocrit 31.1 % (41.0-53.0); Hemoglobin 9.3 g/dL (13.5-16.0); Immature Granulocytes Auto 0.03 Thou/mm3 (0.00-0.00); Lymphocytes # (Auto) 0.9 Thou/mm3 (1.0-4.8); Lymphocytes % (Auto) 7 % (10-50); Mean Corpuscular HGB Conc 29.9 g/dl (31.0-37.0); Mean Corpuscular Hemoglobin 23.7 pg (25.0-35.0); Mean Corpuscular Volume 79 fL (80-100); Monocytes # (Auto) 0.4 Thou/mm3 (0.0-0.8); Monocytes % (Auto) 3 % (0-12); Neutrophils # (Auto) 10.9 Thou/mm3 (1.8-7.7); Neutrophils % (Auto) 89 % (37-80); Nucleated Red Blood Cell # 0.00 Thou/mm3 (0.00-0.00); Nucleated Red Blood Cell % 0 /100 WBC (0); Platelet Count 320 Thou/mm3 (140-440); RDW Standard Deviation 54.8 fL (35.1-43.9); Red Blood Count 3.92 Miln/mm3 (4.50-5.90); White Blood Count 12.4 Thou/mm3 (3.8-10.6)
[2025-04-02 20:14] LABS: Bacteria,Urine Rare; Bilirubin,Urine Negative (Negative); Blood,Urine 3+ (Negative); Glucose, Urine Negative (Negative); Ketones,Urine Negative (Negative); Leukocyte Esterase,Urine Positive (Negative); Nitrite,Urine Negative (Negative); PH,Urine 8.0 (5.0-7.0); Protein,Urine 3+ (Neg - Trace); RBC,Urine 885 /hpf (0-3); Specific Gravity,Urine 1.013 (1.001-1.035); Squamous Epithelial Cell,Urine 2 /hpf (0-5); Urobilinogen,Urine Negative mg/dL (0.0-1.0); WBC,Urine 109 /hpf (0-5)
--- NOTE | 2025-04-02 20:14 | PD.EDMALE ---
ED Male Genitalurinary RME/HPI General Chief complaint: General Adult/Misc Complain Stated complaint: KIDNEY STONES, A LOT OF PAIN Time Seen by Provider: 04/02/25 19:14 Arrival date/time: 04/02/25 18:18 35 with extensive PMH including spina bifida (wheelchair-bound), CREW TRAINER shunt, recurrent UTI/kidney stones (self-cath), and HTN presents to ED with gen ab/flank pain and dysuria. Patient is supposed to get a procedure in the hospital with his urologist Dr. Morelos tomorrow. Patient called the urologist's nurse who told him to come to ED due to intractable pain. Limitations: no limitations Related Data Home Medications ?Medication ?Instructions ?Recorded ?Confirmed amlodipine 10 mg tablet 10 mg PO DAILY 06/06/24 02/05/25 hydromorphone 2 mg tablet 2 mg PO TID PRN Pain 06/06/24 02/05/25 clonidine HCl 0.1 mg tablet 0.1 mg PO BID 01/14/25 02/05/25 losartan 25 mg tablet 25 mg PO DAILY 01/14/25 02/05/25 Previous Rx's ?Medication ?Instructions ?Recorded acetaminophen 300 mg-codeine 30 mg 2 tab PO Q8H PRN pain #20 tabs 03/01/25 tablet cefdinir 300 mg capsule 300 mg PO BID #14 caps 03/01/25 clonidine HCl 0.1 mg tablet 0.1 mg PO BID #60 tabs 03/01/25 metoprolol succinate 100 mg 100 mg PO BID #60 tabs 03/01/25 tablet,extended release 24 hr amoxicillin 875 mg-potassium 1 tab PO BID #20 tabs 03/02/25 clavulanate 125 mg tablet Allergies Allergy/AdvReac Type Severity Reaction Status Date / Time hydrocodone (From [place]) Allergy Severe ITCH Verified 04/02/25 18:22 latex Allergy Severe RASH Verified 04/02/25 18:21 Review of Systems Review of Systems Systems Reviewed: All systems reviewed, normal except as documented Genitourinary Genitourinary: Reports as per HPI and Reports dysuria Musculoskeletal Musculoskeletal: Reports as per HPI and Reports back pain Neurologic Neurologic: Reports system reviewed and no additional complaints, except as documented and Denies confusion Psychiatric Psychiatric: Denies confusion Past Medical History Past Medical History NEUROLOGIC: Positive Neurological Disorders, Spina Bifida and Migraine; Negative Cerebrovascular Accident, Transient Ischemic Attacks (TIA), Dementia, Alzheimer's Disease, Parkinson's Disease, Brain Tumor, Meningitis, Seizures, Epilepsy, Multiple Sclerosis, Cerebral Palsy, Amyotrophic Lateral Sclerosis (ALS/Marcie Gehrig's), Guillain-Stanton Syndrome, Paralysis, Peripheral Neuropathy, Kearns's Palsy, Subdural Hematoma, Head Trauma, Spinal Cord Injury or Traumatic Brain Injury CARDIAC: Positive Cardiac Disorders and Hypertension; Negative Myocardial Infarction, Cardiac Arrhythmia, Atrial Fibrillation, Angina, Heart Murmur, Coronary Artery Disease, Atherosclerotic Heart Disease, Peripheral Vascular Disease, Hypercholesterolemia, Aneurysm, Congestive Heart Failure, Congenital Heart Disease, Valvular Heart Disease, Rheumatic Fever, Cardiomyopathy, Edema, Pericarditis, Cellulitis, Deep Vein Thrombosis, Hypotension or Varicose Veins RESPIRATORY: Negative Chronic Obstructive Pulmonary Disease (COPD), Asthma, Bronchitis, Emphysema, Pneumonia, Pulmonary Fibrosis, Cystic Fibrosis, Tuberculosis, Pulmonary Embolism, Pulmonary Edema or Sleep Apnea GASTROINTESTINAL: Negative Gastrointestinal Disorders, Hepatitis, Cirrhosis, Pancreatitis, Celiac Disease, Gall Bladder Disease, Gastrointestinal Bleed, Esophageal Varices, Goyal's Esophagus, Colitis, Ulcerative Colitis, Diverticulitis, Diverticulosis, Ulcer, Colorectal Cancer, Irritable Bowel, Crohn's Disease, Obstructive Bowel, Hiatal Hernia, Hemorrhoids, Gastroesophageal Reflux Disease or Obesity GENITOURINARY: Positive Genitourinary Disorders, Kidney Stones (bilateral renal stents) and Neurogenic Bladder; Negative Renal Disease, Polycystic Kidney Disease, Inguinal Hernia, Dialysis, Prostate Cancer or Benign Prostatic Hyperplasia REPRODUCTIVE: Negative Breast Cancer, Fibroids, Genital Herpes, Gonorrhea, Syphilis or Testicular Cancer MUSCULOSKELETAL: Positive Musculoskeletal Disorders and Fractures; Negative Muscular Dystrophy, Myasthenia Gravis, Marfan's Syndrome, Bone Cancer, Arthritis, Rheumatoid Arthritis, Osteoporosis, Degenerative Disk Disease, Gout, Scoliosis, Carpal Tunnel Syndrome, Fibromyalgia, Degenerative Joint Disease, Osteomyelitis or Poliovirus ENT: Negative Cataracts, Glaucoma, Blind, Retinal Detachment, Macular Degeneration, Ear Infection, Deafness, Head Trauma or Eye Prosthesis ENDOCRINE: Negative Endocrine Disorders, Diabetes Mellitus Type 1, Diabetes Mellitus Type 2, Hypoglycemia, Shantal's Syndrome, Waldemar's Disease, Hyperthyroidism, Hypothyroidism, Parathyroid Disease, Pituitary Disease, Systemic Lupus Erythematosus, Syndrome of Inappropriate Antidiuretic Hormone (SIADH), Adrenal Disease or Graves' Disease HEMATOLOGIC: Positive Blood Disorders and Anemia; Negative Leukemia, Hemophilia, Thalassemia, Sickle Cell Disease or Clotting Problems PSYCHO/SOCIAL: Positive Depression and Anxiety; Negative Psychiatric Problems, Schizophrenia, Recreational Drug Use, Bipolar Disorder, Behavior Problems, Self-Mutilation, Attention Deficit Disorder, Attention Deficit Hyperactivity Disorder, Depression, Post Traumatic Stress Disorder or Eating Disorder OTHER HISTORY: Positive Hospitalization, Blood Transfusions and Chicken Pox; Negative Autoimmune Disease, Down Syndrome, Autism, Developmental Delay, Shingles, Falls, Blood Transfusion Reaction, Anesthesia Reactions, Organ Transplant, Chemotherapy, Radiation Therapy, Hyperbaric Therapy, MRSA, VRSA, Vancomycin-Resistant Enterococci, Human Immunodeficiency Virus (HIV), Measles, Mumps, Rubella (Croatian Measles), Pertussis, Clostridium Difficile, Cancer, Breast Cancer, Cervical Cancer, Colorectal Cancer, Lung Cancer, Ovarian Cancer, Prostate Cancer or Testicular Cancer Family History FAMILY HISTORY: Positive Family Surgery; Negative Family Psychiatric Problems, Family Respiratory Disorders, Family Cardiac Disorders, Family Gastrointestinal Problems, Family Cancer or Family Anesthesia Reaction Surgical History SURGICAL: Positive Brain Shunt; Negative Cardiac Surgery, Open Heart Surgery, Coronary Artery Bypass Graft, Valve Replacement, Vascular Surgery, Coronary Stent, Cardiac Catheterization, Pacemaker, Angiogram, Auto Implanted Cardiovert Defib, Carotid Endarterectomy, Endocrine Surgery, Thyroidectomy, Ear Surgery, Tympanostomy Tube, Eye Surgery, Nose Surgery, Oral Surgery, Tonsillectomy, Adenoidectomy, Cochlear Implant, Corneal Transplant, Throat Surgery, Abdominal Surgery, Tracheostomy, Gastric Bypass Surgery, Gastrostomy, Bowel Surgery, Nephrectomy, Transurethral Resection, Joint Replacement, Amputation, Open Reduction Internal Fixation, Arthroscopy, Neurologic Surgery, Mastectomy, Lumpectomy, Hysterectomy, Tubal Ligation, Section, Vasectomy or Organ Transplant Social History SMOKING STATUS: Never smoker SECOND HAND EXPOSURE: No SUBSTANCE USE: marijuana ED Exam General Limitations: Present no limitations General appearance: Present alert and in distress Head Head exam: Present atraumatic Neck Neck exam: Present normal inspection, full ROM and trachea midline Chest Chest inspection: Present normal inspection and symmetric chest wall rise Psychiatric Psychiatric exam: Present normal affect and normal mood Skin Skin exam: Present warm, dry, intact and normal color Course Quality Measures none Orders Category Date Time Status Admit to Inpatient Status Routine Admission 04/02/25 21:23 Active Patient Condition Routine Admission 04/02/25 21:23 Ordered COVID-19 Screening Questionnaire NOW Care 04/02/25 20:31 Active Decision to Admit Care 04/02/25 20:30 Completed Baker [Urinary Catheter] Care 04/02/25 21:31 Active Insert IV NOW Care 04/02/25 19:57 Active NPO after Midnight ONCE Care 04/02/25 19:57 Active NPO after Midnight ONCE Care 04/02/25 21:26 Active Notify provider NEEDED Care 04/02/25 21:23 Active Consult to Urology Stat Cons 04/02/25 20:30 Active Diet NPO after Midnight Diet 04/03/25 00:01 Active Diet NPO after Midnight Diet 04/03/25 00:01 Active Diet Renal Diet 04/03/25 Breakfast Active BMP [Basic Metabolic Panel] AM DRAW Lab 04/03/25 05:00 Ordered BMP [Basic Metabolic Panel] AM DRAW Lab 04/04/25 05:00 Ordered BMP [Basic Metabolic Panel] AM DRAW Lab 04/05/25 05:00 Ordered BMP [Basic Metabolic Panel] AM DRAW Lab 04/06/25 05:00 Ordered BMP [Basic Metabolic Panel] AM DRAW Lab 04/07/25 05:00 Ordered Blood Culture (Lab) Stat Lab 04/02/25 19:42 Received CBC AM DRAW Lab 04/03/25 05:00 Ordered CBC AM DRAW Lab 04/04/25 05:00 Ordered CBC AM DRAW Lab 04/05/25 05:00 Ordered CBC AM DRAW Lab 04/06/25 05:00 Ordered CBC AM DRAW Lab 04/07/25 05:00 Ordered CBC Stat Lab 04/02/25 19:42 Completed CMP [Comprehensive Metabolic Panel] Stat Lab 04/02/25 19:42 Completed Lactate (Lactic Acid) Stat Lab 04/02/25 19:42 Completed Mag [Magnesium] AM DRAW Lab 04/03/25 05:00 Ordered Mag [Magnesium] AM DRAW Lab 04/04/25 05:00 Ordered Mag [Magnesium] AM DRAW Lab 04/05/25 05:00 Ordered Mag [Magnesium] AM DRAW Lab 04/06/25 05:00 Ordered Mag [Magnesium] AM DRAW Lab 04/07/25 05:00 Ordered PT [Prothrombin Time with INR] AM DRAW Lab 04/03/25 05:00 Ordered Phosphorous AM DRAW Lab 04/03/25 05:00 Ordered Phosphorous AM DRAW Lab 04/04/25 05:00 Ordered Phosphorous AM DRAW Lab 04/05/25 05:00 Ordered Phosphorous AM DRAW Lab 04/06/25 05:00 Ordered Phosphorous AM DRAW Lab 04/07/25 05:00 Ordered Procalcitonin Stat Lab 04/02/25 19:42 Completed UA [Urinalysis] Stat Lab 04/02/25 19:37 Completed Urine Culture Stat Lab 04/02/25 19:37 Received Acetaminophen Tab [Tylenol Tab] Med 04/02/25 21:34 Pending 650 mg PO Q6HR PRN HYDROmorphone INJ [Dilaudid Inj] Med 04/02/25 21:37 Active 0.5 mg IVP Q4HR PRN HYDROmorphone INJ [Dilaudid Inj] Med 04/02/25 21:37 Active 1 mg IVP Q6H PRN Labetalol IV [Trandate IV] Med 04/02/25 21:43 Pending 10 mg IVP Q1H PRN Morphine* Inj Med 04/02/25 20:48 Discontinued 5 mg IV X1 ONE Ondansetron Inj [Zofran Inj] Med 04/02/25 20:49 Discontinued 4 mg IVP X1 ONE Sodium Chloride 0.9% 1000 ml [Ns] 1,000 ml Med 04/02/25 21:33 Active IV 100 mls/hr Sodium Chloride 0.9% 1000 ml [Ns] 1,000 ml Med 04/02/25 21:32 Discontinued IV 999 mls/hr Tamsulosin HCl [Flomax] Med 04/02/25 21:35 Active 0.4 mg PO QDAY amLODIPine BESYLATE [Norvasc] Med 04/03/25 09:00 Active 10 mg PO DAILY cefTRIAXone/D5w 1gm IV premix [Rocephin/D5w 1gm IV Med 04/02/25 21:33 Pending premix] 1 gm in 50 ml IV QDAY cefTRIAXone/D5w 1gm IV premix [Rocephin/D5w 1gm IV Med 04/02/25 22:15 Discontinued premix] 1 gm in 50 ml IV X1 cloNIDine HCL [Catapres] Med 04/03/25 09:00 Active 0.1 mg PO BID cloNIDine HCL [Catapres] Med 04/02/25 21:43 Discontinued 0.1 mg PO X1 ONE hydrALAZINE INJ [Apresoline Inj] Med 04/02/25 21:43 Active 10 mg IVP Q6H PRN Code Status Routine Oth 04/02/25 21:23 Ordered Vital Signs Vital signs: Vital Signs Temperature 99.6 F 04/02/25 18:48 Pulse Rate 114 H 04/02/25 18:48 Respiratory Rate 16 04/02/25 18:48 Blood Pressure 197/136 H 04/02/25 18:48 Pulse Oximetry (%) 100 04/02/25 18:48 Oxygen Delivery Method Room Air 04/02/25 18:48 O2 at 100% on RA and WNLs Urogenital - Male MDM Narrative MDM Narrative:: 35 with extensive PMH including spina bifida (wheelchair-bound), CREW TRAINER shunt, recurrent UTI/kidney stones (self-cath), and HTN presents to ED with gen ab/flank pain and dysuria. Patient is supposed to get a procedure in the hospital with his urologist Dr. Morelos tomorrow. Patient called the urologist's nurse who told him to come to ED due to intractable pain. Physical exam reveals male who appears to be in pain. Patient is afebrile and alert. Spoke to Dr. Morelos, who states to have the hospitalists admit and he will consult. Dr. Morelos recommends IVF, NPO after midnight, ABX, and urine/blood cultures. He states patient doesn't need a repeat CT. Minimal leukocytosis. CMP unremarkable except for elevated Cr, likely baseline. UA UTI. Spoke to IM Resident who reports to Dr. Edwards, who will admit patient. Patient data External records reviewed:: None Clinical information provided by:: patient Social determinants that could affect healthcare access:: none Patient has the following chronic illnesses:: spina bifida (wheelchair-bound), CREW TRAINER shunt, recurrent UTI/kidney stones (self-cath), and HTN How is presenting disease/condition affected by chronic disease/condition?: caused by Evaluation data The following diagnostics were reviewed and interpreted by me:: lab results Lab and/or radiology exams considered but not ordered:: ordered Interpretation Summary: above Medications / Prescriptions Medications or Prescriptions considered but not ordered:: ordered Medication administrations:: Medication Administration History Acetaminophen (Acetaminophen 325 Mg Tablet) 650 mg PO Q6HR PRN PRN Reason: FEVER >101 Stop: 05/02/25 21:33 Amlodipine Besylate (Amlodipine Besylate 5 Mg Tablet) 10 mg PO DAILY ARACELY Stop: 05/03/25 08:59 Clonidine (Clonidine Hcl 0.1 Mg Tablet) 0.1 mg PO BID ARACELY Stop: 05/03/25 08:59 Hydralazine HCl (Hydralazine Inj 20 Mg/Ml Vial) 10 mg IVP Q6H PRN PRN Reason: BP >180/100 if HR <80 Stop: 05/02/25 21:42 Hydromorphone HCl (Hydromorphone Inj 2 Mg/Ml Vial) 0.5 mg IVP Q4HR PRN PRN Reason: Pain 4-6 Stop: 04/07/25 21:36 Hydromorphone HCl (Hydromorphone Inj 2 Mg/Ml Vial) 1 mg IVP Q6H PRN PRN Reason: Pain 7-10 Stop: 04/07/25 21:36 Last Admin: 04/02/25 22:26 Dose: 1 mg Documented By: BD Sodium Chloride (Ns) 1,000 mls @ 100 mls/hr IV .Q10H ARACELY Stop: 05/02/25 21:32 Ceftriaxone Sodium/Dextrose (Rocephin/D5w 1gm Iv Premix) 1 gm in 50 mls @ 100 mls/hr IV QDAY ARACELY Stop: 04/09/25 21:32 Labetalol HCl (Labetalol Inj 5 Mg/Ml Vial 20 Ml) 10 mg IVP Q1H PRN PRN Reason: BP >180/100 iHR >80 Stop: 05/02/25 21:42 Tamsulosin HCl (Tamsulosin Hcl 0.4 Mg Capsule) 0.4 mg PO QDAY ARACELY Stop: 05/02/25 21:34 Last Admin: 04/02/25 22:22 Dose: 0.4 mg Documented By: BD Discontinued Medications Clonidine (Clonidine Hcl 0.1 Mg Tablet) 0.1 mg PO X1 ONE Stop: 04/02/25 21:44 Last Admin: 04/02/25 22:25 Dose: 0.1 mg Documented By: BD Sodium Chloride (Ns) 1,000 mls @ 999 mls/hr IV .Q1H1M ONE Stop: 04/02/25 22:32 Last Admin: 04/02/25 22:25 Dose: 999 mls/hr Documented By: BD Ceftriaxone Sodium/Dextrose (Rocephin/D5w 1gm Iv Premix) 1 gm in 50 mls @ 100 mls/hr IV X1 ONE Stop: 04/02/25 22:44 Last Admin: 04/02/25 22:22 Dose: 100 mls/hr Documented By: BD Morphine Sulfate (Morphine Sulf Inj 4 Mg/Ml Vial) 5 mg IV X1 ONE Stop: 04/02/25 20:49 Last Admin: 04/02/25 21:03 Dose: 5 mg Documented By: BD Ondansetron HCl (Ondansetron Inj 2 Mg/Ml Inj 2 Ml) 4 mg IVP X1 ONE; Protocol Stop: 04/02/25 20:50 Last Admin: 04/02/25 21:02 Dose: 4 mg Documented By: BD above Consultations Consultation(s) initiated? (list below): Yes Diagnosis Urogenital Male Differential Diagnosis: urinary tract infection, priapism, urethritis, epididymitis, genital herpes simplex, prostatitis, acute retention of urine and inguinal hernia Most likely diagnosis given after review of the tests above:: flank pain Admission Indicated Admission indicated?: indicated Admission Request Was there a request for admission?: Yes Admission Attestation Admission request attestation: Discussed case with [Dr. Edwards] from Hospitalist service regarding admission. Discussed patients ED course, exam findings, labs, and radiology results. The Hospitalist [agrees] to accept the patient for admission. Disposition Plan Disposition Plan: Admit Discharge Plan Plan Patient Disposition: Admit Acute Care w/in Hospital Prescriptions/Referrals Prescriptions/Med Rec: No Action amlodipine 10 mg tablet 10 mg PO DAILY Patient Comments: TAKE 1 TABLET BY MOUTH EVERY DAY hydromorphone 2 mg tablet 2 mg PO TID PRN (Reason: Pain) Patient Comments: TAKE 1 TABLET BY MOUTH THREE TIMES A DAY NEEDED Rx Instructions: kidney pain clonidine HCl 0.1 mg tablet 0.1 mg PO BID Qty: 60 0RF acetaminophen-codeine 300-30 mg tablet 2 tab PO Q8H MDD 6 PRN (Reason: pain) Qty: 20 0RF cefdinir 300 mg capsule 300 mg PO BID Qty: 14 0RF metoprolol succinate 100 mg tablet extended release 24 hr 100 mg PO BID Qty: 60 0RF amoxicillin-pot clavulanate 875-125 mg tablet 1 tab PO BID Qty: 20 0RF losartan 25 mg tablet 25 mg PO DAILY Patient Comments: TAKE 1 TABLET BY MOUTH EVERY DAY clonidine HCl 0.1 mg tablet 0.1 mg PO BID Patient Comments: TAKE 1 TABLET BY MOUTH TWICE A DAY Referrals: Vandana Sears NETWORK DEVELOPMENT COORDINATOR [Primary Care Provider] - In 1 week Problem List Clinical Impression: Flank pain Patient/Caregiver Discharge Instructions Print Language: Irish Stand Alone Forms: Leyla Award Info., Patient Portal Info Letter
[2025-04-02 20:15] LABS: Clarity,Urine Turbid (Clear/Hazy); Color,Urine Lt Orange (Lt Yel-Yel)
[2025-04-02 20:24] LABS: Alanine Aminotransferase 8 U/L (10-49); Albumin, Serum 4.3 gm/dL (3.5-5.0); Albumin/Globulin Ratio 1.5 (1.2-2.2); Alkaline Phosphatase 106 U/L (46-116); Anion Gap 13 (7-16); Aspartate Amino Transferase 16 U/L (0-34); BUN/Creatinine Ratio 17 Ratio (12-20); Bilirubin,Total 0.8 mg/dL (0.3-1.2); Blood Urea Nitrogen 33 mg/dL (9-23); Calcium 8.8 mg/dL (8.3-10.6); Calcium (Corrected) 8.8 mg/dL (8.5-10.1); Carbon Dioxide 19.2 mMol/L (20.0-31.0); Chloride 109 mMol/L (98-107); Creatinine (Component) 2.0 mg/dL (0.6-1.3); Estimated Creatinine Clearance 31.4 mL/min (>60); Globulin 2.9 gm/dL (2.3-3.5); Glucose 89 mg/dL (74-106); Osmolality,Calculated 287 (275-295); Potassium 3.5 mMol/L (3.4-5.1); Procalcitonin 0.08 ng/ml (0.0-0.49); Sodium 141 mMol/L (136-145); Total Protein 7.2 gm/dL (5.7-8.2); eGFR 44 See Note
[2025-04-02 20:46] VITALS: BP 200/142; PULSE 108; RESP 30; TEMP 36.9; O2SAT 97
[2025-04-02] MEDS: ONDANSETRON INJ 2 MG/ML INJ 2 ML 4 MG IVP (21:02)
[2025-04-02] MEDS: MORPHINE SULF INJ 4 MG/ML VIAL 5 MG IV (21:03)
--- NOTE | 2025-04-02 21:46 | ESHP_ITS ---
<Statement entered by Matty Edwards MD - 04/03/25 06:12> I have discussed and was present for the essential components of the history, physical examination, diagnosis, and treatment plan with the resident. I agree with the patient's care as documented by the resident and amended herein by me. Matty Edwards MD FACP. Documentation for date of: 04/02/25 HPI History of Present Illness Chief complaint: flank pain History of present illness: Mr. Dixon is a 35 years old male with past medical history of spina bifida, wheelchair-bound, RAND BUTTER shunt, recurrent UTI (self-cath), bilateral staghorn calculi s/p bilateral ureteral stents, hypertension chronic anemia presented to ED on 04/02/2025 who presented with chief complaint flank pain. Patient reported past 2 days he been having acute sharp bilateral flank pain. Subsequently looks called the urology nurse that told him to come to the ED for intractable pain. Patient endorses occasional headache, constipation and dysuria, but denies urgency, frequency and hematuria, chest pain,fever, chills, fatigue, weakness. Urologist Dr Morelos was consulted for this patient and asked to admit for ureteral stent replacement tomorrow. ED Course: -Initial vitals were BP 197/136, pulse 114, RR 16, temp 99.6, O2 sat 1% room air. -Labs significant for WBC 12.4, RBCs 3.92, Hgb 9.3, HCT 31.1, MCV 79, MCH 23.7, chloride 109, CO2 22.2, 1.33, creatinine 2, GFR 44. UA-: Light orange color urine pH 8, 3+ protein, 3+ blood, positive, 885 RBC, 109 WBC. - No abdominal CT was Dr. Morelos recommendation -In the ED, patient was given zofran and morphine, -Patient was admitted for Cysto and retrograde replacement of bilateral ureter stent and UTI, TRINI mangement Past Medical History: As noted above Family History: No significant history Surgical History: RAND BUTTER shunt, multiple urologic procedures including bilateral ureteral stent placement, laser stone fragmentation and laser bladder stone fragmentation at [facility] by Dr. Morelos Social History: Unemployed, denies smoking, denies drinking, occasionally smokes marijuana. Current Medications: amlodipine 10 mg, clonidine 0.1 mg, Allergies: Latex, hydrocodone from [place] Review of Systems Review of Systems Systems Reviewed: All systems reviewed, normal except as documented Exam Vital Signs Temp Pulse Resp BP Pulse Ox O2 Del Method 98.5 F 108 H 30 H 200/142 H 97 Room Air 04/02/25 20:46 04/02/25 20:46 04/02/25 20:46 04/02/25 20:46 04/02/25 20:46 04/02/25 20:46 Narrative Exam General:Young male, No acute distress, cooperative, eating dinner comfortably HEENT: NCAT, No JVD noted. Mucosa moist. Pupils are equal and reactive to light bilaterally Cardiovascular: Normal S1 and S2. Regular rate and rhythm. Respiratory: Lungs are clear to auscultation bilaterally. No wheezing or crackles heard. Abdomen: Soft, right abdomen tender, Herring negative, not distended, normal bowel sounds. : bilateral CVA tenderness Skin: Warm to touch, dry, no rashes noted Musculoskeletal: No gross injuries. Bilateral lower extremity wasting, unable to move lower extremities. Neuro: Alert and oriented x3. No focal neuro deficits. Psych: Normal affect and mood Results: Labs 04/02/25 19:42 04/02/25 19:42 Labs: Short CBC 04/02/25 Range/Units 19:42 WBC 12.4 H (3.8-10.6) Thou/mm3 Hgb 9.3 L (13.5-16.0) g/dL Hct 31.1 L (41.0-53.0) % Plt Count 320 D (140-440) Thou/mm3 BMP 04/02/25 19:42 Sodium 141 Potassium 3.5 Chloride 109 H Carbon Dioxide 19.2 L BUN 33 H Creatinine 2.0 H Glucose 89 Calcium 8.8 Liver Function 04/02/25 Range/Units 19:42 Total Bilirubin 0.8 (0.3-1.2) mg/dL AST 16 (0-34) U/L ALT 8 L (10-49) U/L Alkaline Phosphatase 106 (46-116) U/L Albumin 4.3 (3.5-5.0) gm/dL Urine 04/02/25 Range/Units 19:37 Urine Color Lt [place] A (Lt Yel-Yel) Urine Clarity Turbid A (Clear/Hazy) Urine pH 8.0 H (5.0-7.0) Ur Specific [place] 1.013 (1.001-1.035) Urine Protein 3+ A (Neg - Trace) Urine Glucose (UA) Negative (Negative) Quality Measures Quality Measures none Medications Home Medications and Allergies Home Medications ?Medication ?Instructions ?Recorded ?Confirmed ?Type amlodipine 10 mg tablet 10 mg PO DAILY 06/06/2401/22 History hydromorphone 2 mg tablet 2 mg PO TID PRN Pain 4 02/05/25 History clonidine HCl 0.1 mg tablet 0.1 mg PO BID 01/14/25 History losartan 25 mg tablet 25 mg PO DAILY 01/14/2501/22 History Allergies Allergy/AdvReac Type Severity Reaction Status Date / Time hydrocodone (From [place]) Allergy Severe ITCH Verified 04/02/25 18:22 latex Allergy Severe RASH Verified 04/02/25 18:21 Visit Medications Acetaminophen (Acetaminophen 325 Mg Tablet) 650 mg PO Q6HR PRN PRN Reason: FEVER >101 Stop: 05/02/25 21:33 Amlodipine Besylate (Amlodipine Besylate 5 Mg Tablet) 10 mg PO DAILY ARACELY Stop: 05/03/25 08:59 Clonidine (Clonidine Hcl 0.1 Mg Tablet) 0.1 mg PO BID ARACELY Stop: 05/03/25 08:59 Clonidine (Clonidine Hcl 0.1 Mg Tablet) 0.1 mg PO X1 ONE Stop: 04/02/25 21:44 Hydralazine HCl (Hydralazine Inj 20 Mg/Ml Vial) 10 mg IVP Q6H PRN PRN Reason: BP >180/100 if HR <80 Stop: 05/02/25 21:42 Hydromorphone HCl (Hydromorphone Inj 2 Mg/Ml Vial) 0.5 mg IVP Q4HR PRN PRN Reason: Pain 4-6 Stop: 04/07/25 21:36 Hydromorphone HCl (Hydromorphone Inj 2 Mg/Ml Vial) 1 mg IVP Q6H PRN PRN Reason: Pain 7-10 Stop: 04/07/25 21:36 Sodium Chloride (Ns) 1,000 mls @ 999 mls/hr IV .Q1H1M ONE Stop: 04/02/25 22:32 Sodium Chloride (Ns) 1,000 mls @ 100 mls/hr IV .Q10H [facility] Stop: 05/02/25 21:32 Ceftriaxone Sodium/Dextrose (Rocephin/D5w 1gm Iv Premix) 1 gm in 50 mls @ 100 mls/hr IV QDAY [facility] Stop: 04/09/25 21:32 Labetalol HCl (Labetalol Inj 5 Mg/Ml Vial 20 Ml) 10 mg IVP Q1H PRN PRN Reason: BP >180/100 iHR >80 Stop: 05/02/25 21:42 Tamsulosin HCl (Tamsulosin Hcl 0.4 Mg Capsule) 0.4 mg PO QDAY [facility] Stop: 05/02/25 21:34 Discontinued Medications Morphine Sulfate (Morphine Sulf Inj 4 Mg/Ml Vial) 5 mg IV X1 ONE Stop: 04/02/25 20:49 Last Admin: 04/02/25 21:03 Dose: 5 mg Ondansetron HCl (Ondansetron Inj 2 Mg/Ml Inj 2 Ml) 4 mg IVP X1 ONE; Protocol Stop: 04/02/25 20:50 Last Admin: 04/02/25 21:02 Dose: 4 mg Assessment & Plan Plan Mr. Dixon is a 35 years old male with past medical history of spina bifida, wheelchair-bound, RAND BUTTER shunt, recurrent UTI (self-cath), bilateral staghorn calculi s/p bilateral ureteral stents, hypertension chronic anemia presented to ED on 04/02/2025 who presented with chief complaint flank pain. Admitted for Cystoretrograde replacement of bilateral ureter stent and UTI, TRINI mangement. #Pyelonephritis 2/2 bilateral ureteral stents #History of recurrent UTI #Hx bilateral Staghorn calculli The patient has a history of recurrent urinary tract infections (UTIs) and self- catheterization. A urine culture from the previous admission on 03/02/25 was positive for Enterococcus and Pseudomonas. The patient reports dysuria but denies urgency or frequency. On physical examination, bilateral costovertebral angle (CVA) tenderness was noted, and with leukocytosis suggests possible pyelonephritis. Lab results show leukocytosis with a WBC count of 12.4, likely related to the recurrent UTI. There is low suspicion for sepsis, as the patient's lactate is normal at 0.9, and is afebrile. While the patient is tachycardic, there is no evidence of hypotension. UA positive for UTI with leukocyte esterase, WBCs 109, RBC 885. Previous 02/28/25 CT abd/pelvis shows bilateral large renal calculi, ureteral stents in satisfactory position with mild bilateral hydronephrosis. Significant thickening of the urinary bladder wall and marked cystitis pattern. Urologist request no repeat CT abdomen/pelvis. Plan - Urology Dr. Morelos consulted, appreciate recs-possible bilateral ureter stent replacement tomorrow ? Blood cultures pending ? Urine culture pending - Started 1gm ceftriaxone - Resume home med tamsulosin 0.4 mg for nephrolithiasis #TRINI on superimposed CKD Nessa in setting of intrinsic problems/obstructive uropathy. 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 On admission Cr 2.0 (baseline around 1.7), BUN33, GFR 44. Likely CKD IIIa noted GFR baseline is between 54 to 44 in the last 3months. Plan - Started IV hydration -Avoid nephrotoxins -Monitor renal panel -Renally dosed medications -Hold any DB/ARB/diuretics -Consider consulting Nephrology in AM # Primary hypertension Denies any show for the effusion manageable with amlodipine 10mg and clonidine 0.1 mg. On admission pt was hypertensive BP 197/136- received 0.1mg clonidine, 10mg Hydralazine Plan - resume home medication amlodipine 10 mg and clonidine 0.1 mg - started 10 mg IV hydralazine q6h prn for BP>180/100 with HR <80 - started 10mg IV labetalol q1h prn for BP>180/100 HR>80 #Chronic microcytic anemia #Hx of Iron deficiency anemia Patient has a history of of chronic microcytic anemia. Hemoglobin 9.3, hematocrit 31.1, MCV 79. Plan - Monitor H/H - Daily CBC - Transfuse if Hb <7 #Spina bifida (wheelchair-bound) #RAND BUTTER shunt Patient is wheelchair-bound at baseline ? Continue outpatient follow-up Hospital management: Lines: peripheral IV Diet: NPO DVT prophylaxis: SCDs Disposition: medsurg for UTI/TRINI and urology procedure CODE STATUS: Full code Patient seen and assessed under supervision of attending physician and senior resident Dr. Lara PGY-2 Maia Centeno MD PGY-1, Internal Medicine Please note: this document was transcribed using voice recognition technology; minor inaccuracies may be present.
[2025-04-02] MEDS: cefTRIAXone/D5w 1gm IV premix 1 GM/50 ML BAG IV (22:22)
[2025-04-02] MEDS: TAMSULOSIN HCL 0.4 MG CAPSULE PO (22:22)
[2025-04-02 22:25] VITALS: BP 188/132; PULSE 110
[2025-04-02] MEDS: SODIUM CHLORIDE 0.9% 1000 ML 1,000 ML 999 ML IV (22:25)
[2025-04-02] MEDS: HYDROmorphone INJ 2 MG/ML VIAL 1 MG IVP (22:26)
[2025-04-02 23:13] VITALS: BP 189/151; PULSE 108; RESP 14; TEMP 36.9; O2SAT 100
--- NOTE | 2025-04-02 23:19 | PC.NURSE ---
PT DOES NOT WANT RAMACHANDRAN CATH HE SELF CATHS
[2025-04-02 23:21] VITALS: BP 189/151; PULSE 109
[2025-04-02] MEDS: hydrALAZINE INJ 20 MG/ML VIAL 10 MG IVP (23:21)
[2025-04-02] MEDS: SODIUM CHLORIDE 0.9% 1000 ML 1,000 ML 100 ML IV (23:38)
--- NOTE | 2025-04-02 23:49 | PC.NURSE ---
called dr. fernandez pt b/p was 189/151 before 10 mg of hydralazine after hydralazine b/p 191/130 notified provider no new orders recheck b/p at 0015 and notify b/p then
[2025-04-02 23:59] VITALS: BP 191/130
[2025-04-03] VITALS (21 sets, daily range): BP systolic 120–180; BP diastolic 77–125; PULSE 63–112; RESP 12–22; TEMP 36.6–36.9; O2SAT 96–100
--- NOTE | 2025-04-03 00:18 | PC.NURSE ---
called dr. fernandez pt b/p 165/110 and hr 116 no new orders
--- NOTE | 2025-04-03 00:25 | PC.NURSE ---
pt complaining of nausea notified dr. fernandez she will put order for zofran
[2025-04-03] MEDS: ONDANSETRON INJ 2 MG/ML INJ 2 ML 4 MG IV (00:44)
--- NOTE | 2025-04-03 01:43 | PC.NURSE ---
called dr. fernandez pt is stating 03/03 pain advised gave the dilaudid 1mg was give @ 2226 and it is to early, even for the dilaudid 0.5mg as that one is every 4 and could get at 0226 she stated it is ok to give the dilaudid 0.5mg dose early at 0200
[2025-04-03] MEDS: HYDROmorphone INJ 2 MG/ML VIAL 0.5 MG IVP (01:58)
--- NOTE | 2025-04-03 02:02 | PC.NURSE ---
pharmacy has labetalol on hold as hydralazine donovan same parameters notified dr. fernandez that pharmacy is wanting her to rank or verify orders she stated she will look at orders.
--- NOTE | 2025-04-03 02:08 | PC.NURSE ---
pt has labetalol and hydralazine with same b/p parameters and labetalol is ending as they want provider to rank Dr. Sánchez stated that they have the same b/p parameters nut on is if the heart is above 80 and the other is if heart rate is below 80. pharmacy will not approve wants to rank I advised that is dependent on heart rate per provider dr. fernandez which one to give if b/p is over parameters provided them dr. fernandez extension
--- NOTE | 2025-04-03 02:08 | PC.NURSE ---
notified pt b/p was now 167/117 no new orders.
[2025-04-03] MEDS: LABETALOL INJ 5 MG/ML VIAL 20 ML 10 MG IVP ×2 (04:50→06:12)
[2025-04-03] MEDS: MORPHINE SULF INJ 4 MG/ML VIAL 2 MG IVP (04:51)
--- NOTE | 2025-04-03 04:59 | PC.NURSE ---
called as pt is vomiting he will put in order for merced nath to give now.
[2025-04-03] MEDS: ONDANSETRON INJ 2 MG/ML INJ 2 ML 4 MG IVP ×2 (05:05→19:24)
--- NOTE | 2025-04-03 05:25 | PC.NURSE ---
notified after 10mg labetalol pt b/p 173/125 no new orders advised he does not want to drop pt b/p to low
[2025-04-03 06:06] LABS: Basophils # (Auto) 0.0 Thou/mm3 (0.0-0.2); Basophils % (Auto) 0 % (0-2.5); Eosinophils # (Auto) 0.0 Thou/mm3 (0.0-0.5); Eosinophils % (Auto) 0 % (0-10); Hematocrit 28.6 % (41.0-53.0); Immature Granulocytes Auto 0.04 Thou/mm3 (0.00-0.00); Lymphocytes # (Auto) 0.7 Thou/mm3 (1.0-4.8); Lymphocytes % (Auto) 6 % (10-50); Mean Corpuscular HGB Conc 30.4 g/dl (31.0-37.0); Mean Corpuscular Hemoglobin 24.2 pg (25.0-35.0); Mean Corpuscular Volume 80 fL (80-100); Monocytes # (Auto) 0.4 Thou/mm3 (0.0-0.8); Monocytes % (Auto) 3 % (0-12); Neutrophils # (Auto) 10.0 Thou/mm3 (1.8-7.7); Neutrophils % (Auto) 89 % (37-80); Nucleated Red Blood Cell # 0.00 Thou/mm3 (0.00-0.00); Nucleated Red Blood Cell % 0 /100 WBC (0); Platelet Count 276 Thou/mm3 (140-440); RDW Standard Deviation 54.1 fL (35.1-43.9); Red Blood Count 3.59 Miln/mm3 (4.50-5.90); White Blood Count 11.2 Thou/mm3 (3.8-10.6)
[2025-04-03 06:10] LABS: INR 1.0 (0.9-1.3); Prothrombin Time 10.6 Seconds (9.0-12.2)
[2025-04-03 06:14] LABS: Hemoglobin 8.7 g/dL (13.5-16.0)
[2025-04-03 06:21] LABS: Anion Gap 13 (7-16); BUN/Creatinine Ratio 18 Ratio (12-20); Blood Urea Nitrogen 28 mg/dL (9-23); Calcium 8.4 mg/dL (8.3-10.6); Carbon Dioxide 18.1 mMol/L (20.0-31.0); Chloride 111 mMol/L (98-107); Creatinine (Component) 1.6 mg/dL (0.6-1.3); Estimated Creatinine Clearance 39.3 mL/min (>60); Glucose 105 mg/dL (74-106); Magnesium 2.0 mg/dL (1.6-2.6); Osmolality,Calculated 288 (275-295); Phosphorous 3.8 mg/dL (2.4-5.1); Potassium 3.4 mMol/L (3.4-5.1); Sodium 142 mMol/L (136-145); eGFR 57 See Note
--- NOTE | 2025-04-03 07:25 | XR_ITS ---
Examination: Retrograde pyelogram bilateral with without KUB Fluoroscopy 4 spot fluoroscopic abdomen films Date and time: April 03, 2025 1512 hours INDICATIONS: History large bilateral staghorn calculi with bilateral ureteral stents on CT stone study February 28, 2025, replacement ureteral stents TECHNIQUE AND FINDINGS: 4 spot fluoroscopic films of the abdomen Contrast opacification of dilated bilateral renal calyces Ureteral stents satisfactory position Fluoroscopy 90 seconds radiation dose 13.65 milligray IMPRESSION: Bilateral retrograde pyelograms as above
[2025-04-03] MEDS: HYDROmorphone INJ 2 MG/ML VIAL 1 MG IVP ×4 (07:45→22:39)
[2025-04-03] MEDS: SODIUM CHLORIDE 0.9% 1000 ML 1,000 ML 100 ML IV ×2 (07:48→18:34)
--- NOTE | 2025-04-03 08:30 | PC.NURSE ---
THIS RN MADE AWARE BY PT THAT HE SELF CATHETERIZES HIMSELF AT HOME. DR. CIERRA JARVIS MADE AWARE, ORDERS RECEIVED AT THIS TIME.
--- NOTE | 2025-04-03 08:38 | CHAP ---
Patient was feeling nauseous but asked that I pray with him. I said a prayer and gave some words of comfort.
--- NOTE | 2025-04-03 08:54 | PC.NURSE ---
THIS RN CLARIFIED WITH DR. Rom JARVIS IF OK TO GIVE PT'S MORNING PO MEDS WHEN PT IS NPO; MADE AWARE PT'S BP AT 175/[address] Rom JARVIS, OK TO GIVE MORNING PO MEDS AT THIS TIME.
[2025-04-03] MEDS: TAMSULOSIN HCL 0.4 MG CAPSULE PO (08:55)
--- NOTE | 2025-04-03 11:54 | ESPR_ITS ---
<Statement entered by Jeanette Boo MD - 04/15/25 09:06> I reviewed above note and agree with findings and plans. I have also personally examined the patient with medicine team and went over assessment and plan with medical team including internet security specialist and resident physician. <Statement entered by Jose Flores MD - 04/03/25 11:57> Overnight admission. Seen and examined at bedside in ED and patient had an episode of nonbloody emesis secondary to pain. Thus far, he had received Zofran [id number] and will obtain EKG prior to starting second agent. Otherwise, he is pending urological procedure with Dr. Morelos today. UA showed 885 RBC and 109 WBC, currently on ceftriaxone and will follow-up cultures. Pending med rec for home pain medications. ----- Note reviewed and agree with care plan as documented. Please refer to the note below for further details. Plan discussed with attending physician Dr. Ema Flores MD PGY-2 Internal Medicine Documentation for date of: 04/03/25 Subjective Subjective Interval history: Mr. Dixon is a 35 years old male with past medical history of spina bifida, wheelchair-bound, [employer] CR[employer] shunt, recurrent UTI (self-cath), bilateral staghorn calculi s/p bilateral ureteral stents, hypertension chronic anemia presented to ED on 04/02/2025 with chief complaint flank pain. Patient is admitted for hypertensive emergency, and management of bilateral staghorn calculi with bilateral ureteral stents. Urology has been consulted and is pending replacement of bilateral ureteral stents today. Patient was seen at bedside today morning along with Dr. Mook Flores and the nurse was in the room. Patient was in distress due to pain. Patient notes significant left sides flank pain noting it at a 9/10. Patient was actively coughing and throwing up in the emesis bag while I was in the room despite taking PRN Q4 Zofran. Patient notes that depending on the position he is in, the pain changes between left and right flank. Exam Vital Signs Temp Pulse Resp BP Pulse Ox O2 Del Method 98.0 F 79 16 147/98 H 100 Room Air 04/03/25 10:18 04/03/25 10:18 04/03/25 10:18 04/03/25 10:18 04/03/25 10:18 04/03/25 10:18 Narrative Exam General: Patient is fully alert and oriented. In acute distress due to severe flank pain. ?Cardio: RRR, no murmurs, gallops or rubs appreciated. ?Resp: Normal lung sounds, no rales or wheezing auscultated. ?MSK/ Extremities: No muscle or joint pain on any movement. No bruising or skin changes visible. No presence of trace or pitting edema in lower extremities bilaterally, dorsalis pedis pulses +2 bilaterally ?GI: No abdominal distension, normal bowel sounds. Diffuse abdominal tenderness. Bilateral CVA tenderness, L>R ?Neuro: AAOx3, no focal motor or sensory deficits in the UE or LE bilat ?Psych: Good judgement, thought and behavior. Cooperative Objective Labs 04/03/25 04:39 04/03/25 04:39 Labs: Laboratory Results - last 24 hr 04/02/25 04/02/25 04/03/25 19:37 19:42 04:39 WBC 12.4 H 11.2 H RBC 3.92 L 3.59 L Hgb 9.3 L 8.7 L Hct 31.1 L 28.6 L MCV 79 L 80 MCH 23.7 L 24.2 L MCHC 29.9 L 30.4 L RDW Std Deviation 54.8 H 54.1 H Plt Count 320 D 276 D Neut % (Auto) 89 H 89 H Lymph % (Auto) 7 L 6 L [place] % (Auto) 3 3 Eos % (Auto) 1 0 Baso % (Auto) 0 0 Neut # (Auto) 10.9 H 10.0 H Lymph # (Auto) 0.9 L 0.7 L [place] # (Auto) 0.4 0.4 Eos # (Auto) 0.1 0.0 Baso # (Auto) 0.0 0.0 Immature Gran # (Auto) 0.03 H 0.04 H Absolute Nucleated RBC 0.00 0.00 Immature Gran % 0 0 Nucleated RBC % 0 0 PT 10.6 INR 1.0 Sodium 141 142 Potassium 3.5 3.4 Chloride 109 H 111 H Carbon Dioxide 19.2 L 18.1 L Anion Gap 13 13 BUN 33 H 28 H Creatinine 2.0 H 1.6 H Estim Creat Clear Calc 31.4 L 39.3 L eGFR 44 L 57 L BUN/Creatinine Ratio 17 18 Glucose 89 105 Calculated Osmolality 287 288 Lactic Acid 0.9 Calcium 8.8 8.4 Corrected Calcium 8.8 Phosphorus 3.8 Magnesium 2.0 Total Bilirubin 0.8 AST 16 ALT 8 L Alkaline Phosphatase 106 Total Protein 7.2 Albumin 4.3 Globulin 2.9 Albumin/Globulin Ratio 1.5 Procalcitonin 0.08 Ur Collection Type Clean Catch Urine Color Lt [place] A Urine Clarity Turbid A Urine pH 8.0 H Ur Specific [place] 1.013 Urine Protein 3+ A Urine Glucose (UA) Negative Urine Ketones Negative Urine Blood 3+ A Urine Nitrite Negative Urine Bilirubin Negative Urine Urobilinogen (Auto) Negative Ur Leukocyte Esterase Positive Urine RBC 885 H Urine WBC 109 H Ur Squamous Epith Cells 2 Urine Bacteria Rare Quality Measures Quality Measures none Assessment & Plan Assessment Current Active Medications: Generic Name Dose Route Start Last Admin Trade Name Freq PRN Reason Stop Dose Admin Acetaminophen 650 mg 04/03/25 07:33 Acetaminophen 325 Mg Tablet PO 05/02/25 21:33 Q6HR PRN FEVER >100.4 Amlodipine Besylate 10 mg 04/03/25 09:00 04/03/25 08:55 Amlodipine Besylate 5 Mg Tablet PO 05/03/25 08:59 10 mg DAILY ARACELY Administration Clonidine 0.1 mg 04/03/25 09:00 04/03/25 08:55 Clonidine Hcl 0.1 Mg Tablet PO 05/03/25 08:59 0.1 mg BID ARACELY Administration Hydralazine HCl 10 mg 04/02/25 21:43 04/02/25 23:21 Hydralazine Inj 20 Mg/Ml Vial IVP 05/02/25 21:42 10 mg Q6H PRN Administration BP >180/100 if HR <80 Hydromorphone HCl 1 mg 04/03/25 04:46 04/03/25 07:45 Hydromorphone Inj 2 Mg/Ml Vial IVP 04/07/25 21:36 1 mg Q4H PRN Administration Pain 7-10 Sodium Chloride 1,000 mls @ 100 mls/hr 04/02/25 21:33 04/03/25 07:48 Ns IV 05/02/25 21:32 100 mls/hr .Q10H ARACELY Administration Ceftriaxone Sodium/Dextrose 1 gm in 50 mls @ 100 mls/hr 04/03/25 21:00 Rocephin/D5w 1gm Iv Premix IV 04/10/25 20:59 HS ARACELY Labetalol HCl 10 mg 04/02/25 21:43 04/03/25 06:12 Labetalol Inj 5 Mg/Ml Vial 20 Ml IVP 05/02/25 21:42 10 mg Q1H PRN Administration BP >180/100 if HR >80 Morphine Sulfate 2 mg 04/03/25 04:45 04/03/25 04:51 Morphine Sulf Inj 4 Mg/Ml Vial IVP 2 mg Q3H PRN Administration Pain 4-6 Ondansetron HCl 4 mg 04/03/25 04:57 04/03/25 05:05 Ondansetron Inj 2 Mg/Ml Inj 2 Ml IVP 05/03/25 04:56 4 mg Q6HR PRN Administration NAUSEA OR VOMITING Protocol Tamsulosin HCl 0.4 mg 04/02/25 21:35 04/03/25 08:55 Tamsulosin Hcl 0.4 Mg Capsule PO 05/02/25 21:34 0.4 mg QDAY ARACELY Administration Plan Mr. Dixon is a 35 years old male with past medical history of spina bifida, wheelchair-bound, [employer] CR[employer] GU[employer] shunt, recurrent UTI (self-cath), bilateral staghorn calculi s/p bilateral ureteral stents, hypertension chronic anemia presented to ED on 04/02/2025 with chief complaint flank pain. Admition day 1 for Cystoretrograde replacement of bilateral ureter stent and UTI, TRINI mangement. #Pyelonephritis 2/2 bilateral ureteral stents #History of recurrent UTI #Hx bilateral Staghorn calculli The patient has a history of recurrent urinary tract infections (UTIs) and self- catheterization. A urine culture from the previous admission on 03/02/25 was positive for Enterococcus and Pseudomonas. The patient reports dysuria but denies urgency or frequency. On physical examination, bilateral costovertebral angle (CVA) tenderness was noted, and with leukocytosis suggests possible pyelonephritis. Lab results show leukocytosis with a WBC count of 12.4, likely related to the recurrent UTI. There is low suspicion for sepsis, as the patient's lactate is normal at 0.9, and is afebrile. While the patient is tachycardic, there is no evidence of hypotension. UA positive for UTI with leukocyte esterase, WBCs 109, RBC 885. Previous 02/28/25 CT abd/pelvis shows bilateral large renal calculi, ureteral stents in satisfactory position with mild bilateral hydronephrosis. Significant thickening of the urinary bladder wall and marked cystitis pattern. Urologist request no repeat CT abdomen/pelvis. - Urology Dr. Morelos consulted, appreciate recs-possible bilateral ureter stent replacement today ? Blood cultures pending ? Urine culture pending - Started 1gm ceftriaxone - Resume home med tamsulosin 0.4 mg for nephrolithiasis #TRINI on superimposed CKD- resolving Nessa in setting of intrinsic problems/obstructive uropathy. 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 On admission Cr 1.6 (2.0 on admission) (baseline around 1.7), BUN33, GFR 44. Likely CKD IIIa noted GFR baseline is between 54 to 44 in the last 3months. - Started IV hydration -Avoid nephrotoxins -Monitor renal panel -Renally dosed medications -Hold any DB/ARB/diuretics -Consider consulting Nephrology in AM #Nausea Refractory nausea to Ondansetron Q6H PRN Patient was actively throwing up today morning. - Multimodal pain control - Zofran PRN Q6H - Will add metoclopramide if needed # Primary hypertension Denies any show for the effusion manageable with amlodipine 10mg and clonidine 0.1 mg. On admission pt was hypertensive BP 197/136- received 0.1mg clonidine, 10mg Hydralazine - resume home medication amlodipine 10 mg and clonidine 0.1 mg - started 10 mg IV hydralazine q6h prn for BP>180/100 with HR <80 - started 10mg IV labetalol q1h prn for BP>180/100 HR>80 #Chronic microcytic anemia #Hx of Iron deficiency anemia Patient has a history of of chronic microcytic anemia. Hemoglobin 9.3, hematocrit 31.1, MCV 79. - Monitor H/H - Daily CBC - Transfuse if Hb <7 #Spina bifida (wheelchair-bound) #S[employer] CR[employer]ING GUARD shunt Patient is wheelchair-bound at baseline ? Continue outpatient follow-up Health Maintenance: Code Status: Full DVT Prophylaxis: SCDs GI Prophylaxis: Protonix Diet: NPO pending surgery with urology Baker: None Lines: PIV Supplemental O2: None Disposition: Currently still in the ED admitted to [facility], patient will be sent home, pending urology procedure Patient seen and care discussed with my attending physician, Dr. Boo and my senior residents, Dr. Denise and Dr. Mook Leyva, [facility]
--- NOTE | 2025-04-03 15:59 | SUR.PHASEI ---
1551 Patient arrived to recovery resting comfortably in [facility], drowsy and talking with staff, on oxygen 4L via oxy mask, breathing unlabored, vital signs stable, denies pain and nausea, 16F vitale in place with leg secure; draining to gravity, patient has Potassium 10meq via IV hang, anesthesia provider started in OR, asked to continue until finish, will administer medication via IV pump per order rate, report received from Jean Claude DODD and Nohemy PADILLA.
--- NOTE | 2025-04-03 16:05 | ESOP_ITS ---
Date of Procedure 04/03/25 Pre Op Diagnosis Bilateral staghorn calculi status post placement of bilateral ureteral stent, calcified stent urinary tract infection Post Op Diagnosis Same plus calcified stent and urethral stenosis Procedure Cystoscopic examination urethral dilation bilateral retrograde pyelogram laser stone fragmentation removal of bilateral ureteral stent bilateral ureteroscopy placement of bilateral ureteral stent in a retrograde fashion under fluoroscopic examination insertion of Baker catheter Findings Calcified bilateral ureteral stents Procedure Description Indication for procedure this is a 35-year-old gentleman he is admitted in the hospital through the emergency room. He is known case of spina bifid and neuro genic bladder as a result of that he has bilateral staghorn calculi he had placement of bilateral ureteral stent this has been going on for several year he had seen another urologist before patient came to the emergency room he had low- grade fever bilateral flank pain he was recommended removal of bilateral ureteral stent laser stone fragmentation and placement of bilateral ureteral stent in a retrograde fashion procedure and complications were discussed with the patient in great detail informed consent is obtained Patient was brought to the operating room in a satisfactory condition after alphonse ropriate premedication he was appropriately identified by surgeon and operating room staff site scope and indications of the procedure were reconfirmed with the patient patient was positioned on the cystoscopy table general anesthesia was given uneventfully he was positioned in dorsolithotomy position parts were prepped and draped in the usual sterile fashion at this time patient received perioperative antibiotics. 20 mg of Lasix IV was administered. He had a urethral stenosis urethral calibration and dilation up to 28 [place] was carried out with male urethral sounds 21 scope was used to do the cystourethroscopy examination of urethra was unremarkable. Examination of prostatic urethra revealed obstructive prostate gland inside of the bladder and all the quadrant was carried out he had course of bladder trabeculation. He had calcified stent both sides. I took 200 ?m laser fiber encrustation around the stent was removed with the laser. Next I passed a open-ended Pollick catheter into the right ureter retrograde pyelogram was performed this revealed hydronephrosis. Next right ureteral stent was removed I after I placed a safety wire into the upper pole calyx similar procedure was repeated on the left side. Both stents were removed without any complication. Ureteroscopic examination revealed no obstructive stone in the ureter. Over the safety wire I placed 22 cm long 6 [place] Island[place] double-J stent both the right and left side. Bladder was emptied and #16 Baker catheter was inserted patient after having tolerated the procedure well was sent to recovery room in a satisfactory condition he can be discharged him and he will follow-up with me in my office in 3 months time Anesthesia GETA Pathology / specimen None Estimated Blood Loss 2 Condition Stable Disposition PACU Surgeon Gisel Morelos MD Surgical Staff Operation Date: 04/03/25 16:30 Case Staff SHOP COOPER: Rian Tsang
--- NOTE | 2025-04-03 16:12 | ESCONSULT_ITS ---
RE: JOSE MELGAR : 1990 DATE OF CONSULTATION: 04/03/2025 CHIEF COMPLAINT: 1. Bilateral flank pain. 2. Low-grade temperature. 3. Dysuria. HISTORY OF PRESENT ILLNESS: This is a 35-year-old gentleman. He has past medical history of spina bifida. 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 He has neurogenic bladder. He does intermittent catheterization. He is known to have hypertension, which is controlled. This patient had bilateral staghorn calculi and he has seen other urologist in the past. He is status post placement of bilateral ureteral stents. He has no history of gross hematuria. He does have intractable pain. The patient is a smoker. He smokes marijuana. VARIOUS MEDICATIONS: He is takin. Amlodipine 10 mg tablet. 2. Hydromorphone 2 mg tablet. 3. Clonidine 0.1 mg tablet. 4. Metoprolol succinate 100 mg. 5. He has been on amoxicillin 875 mg twice a day. REVIEW OF THE SYSTEM: All systems reviewed and normal except as documented. GENITOURINARY: Per history and physical, complaints of bilateral flank pain and dysuria. MUSCULOSKELETAL: Reports back pain. NEUROLOGICAL: Denies confusion. PAST MEDICAL HISTORY: NEUROLOGICAL: Positive for neurological disorder, spina bifida, and migraine. Negative for CVA, dementia or parkinsonism disease. CARDIAC: Positive for hypertension. Negative for ME. RESPIRATORY: Negative for COPD. GASTROINTESTINAL: Negative for hepatitis or cirrhosis. GENITOURINARY: Bilateral staghorn calculi. MUSCULOSKELETAL: Positive for disorder and fractures. HEMATOLOGICAL: Positive for blood disorder and anemia. FAMILY HISTORY: Positive family history for surgery. PHYSICAL EXAMINATION: GENERAL: Condition is satisfactory. Orientation x3. HEENT: Normocephalic and atraumatic. Eyes: No anemia or jaundice. NECK: Supple. Trachea is central. Thyroid is not enlarged. EXTREMITIES: Revealed no edema, cyanosis or clubbing. VITAL SIGNS: Stable. They are in HPI, in EMR. CHEST: Symmetrical. HEART: Regular rate and rhythm. ABDOMEN: No masses. Liver, spleen, and kidney not palpable. No CVA tenderness. VARIOUS LABORATORIES: I do not have the labs yet on patient's chart. PLAN: Cysto, retrograde laser stone fragmentation, and placement of bilateral ureteral stent. Procedure and complications of this are discussed with patient in great detail. Questions answered to his satisfaction. DT: 14:30:44 TT: 16:11:00 Ref: [id number] - TID: [id number]
--- NOTE | 2025-04-03 16:22 | SUR.PHASEI ---
1608 Patient complaining of burning to right hand (IV site), site is not warm, no redness to site noted, anesthesia at bedside made aware of patient complaint, Jean Claude DODD gave orders to decrease rate of Potassium to 50ml/hr for Potassium currently running via IV. 1609 IV rate changed to 50ml/hr, will monitor 1615 Patient stated it's burning again, patient stated, I don't want any more of that in my IV, can I get a pill instead, IV stopped per patient request. 1616 Notified Jean Claude DODD of patient complaint of IV burning and request for oral potassium supplement, Jean Claude requested this proposal manager writer to call pharmacy for what the pharmacy carries of Potassium Chloride oral supplement. 1620 Spoke with pharmacist Ana about dose for Potassium Chloride oral tab, what is carried for oral supplement 1622 Notified Jean Claude DODD regarding Potassium Chloride supplement carried in oral tab is Potassium Chloride 20meq tabs, telephone order read-back received from Potassium Chloride 20 meq oral tab x1, will place order in EMR and administer to patient per maddy order
--- NOTE | 2025-04-03 17:17 | SUR.PHASEI ---
1712 Report given to Sharron PADILLA, patient meets discharge criteria from recovery, awake and alert, breathing unlabored, vital signs stable, denies pain and nausea, urinary catheter in place with leg draining to gravity. 1717 Patient transported via gurney to room 272 without incident, CLEAN ROOM TECHNICIAN promptly in patient room to assist with transferring patient from gurney to bed, patient resting comfortably with call light in reach when this internal communications writer left patient room
[2025-04-03] MEDS: cefTRIAXone/D5w 1gm IV premix 1 GM/50 ML BAG IV (20:59)
[2025-04-04] VITALS: BP 129/81; PULSE 89; RESP 16; TEMP 36.4; O2SAT 99
[2025-04-04] MEDS: HYDROmorphone INJ 2 MG/ML VIAL 1 MG IVP ×3 (02:35→10:38)
[2025-04-04 04:00] VITALS: BP 124/85; PULSE 89; PULSE 91; RESP 19; TEMP 36.4; O2SAT 99
[2025-04-04] MEDS: SODIUM CHLORIDE 0.9% 1000 ML 1,000 ML 100 ML IV (04:09)
[2025-04-04 06:00] VITALS: BMI 24.4
[2025-04-04 06:01] LABS: Basophils # (Auto) 0.0 Thou/mm3 (0.0-0.2); Basophils % (Auto) 0 % (0-2.5); Eosinophils # (Auto) 0.1 Thou/mm3 (0.0-0.5); Eosinophils % (Auto) 2 % (0-10); Hematocrit 25.2 % (41.0-53.0); Immature Granulocytes Auto 0.03 Thou/mm3 (0.00-0.00); Lymphocytes # (Auto) 0.7 Thou/mm3 (1.0-4.8); Lymphocytes % (Auto) 10 % (10-50); Mean Corpuscular HGB Conc 30.2 g/dl (31.0-37.0); Mean Corpuscular Hemoglobin 24.6 pg (25.0-35.0); Mean Corpuscular Volume 82 fL (80-100); Monocytes # (Auto) 0.4 Thou/mm3 (0.0-0.8); Monocytes % (Auto) 6 % (0-12); Neutrophils # (Auto) 6.0 Thou/mm3 (1.8-7.7); Neutrophils % (Auto) 82 % (37-80); Nucleated Red Blood Cell # 0.00 Thou/mm3 (0.00-0.00); Nucleated Red Blood Cell % 0 /100 WBC (0); Platelet Count 209 Thou/mm3 (140-440); RDW Standard Deviation 56.8 fL (35.1-43.9); Red Blood Count 3.09 Miln/mm3 (4.50-5.90); White Blood Count 7.4 Thou/mm3 (3.8-10.6)
[2025-04-04 06:02] LABS: Hemoglobin 7.6 g/dL (13.5-16.0)
[2025-04-04 06:30] LABS: Anion Gap 13 (7-16); BUN/Creatinine Ratio 15 Ratio (12-20); Blood Urea Nitrogen 22 mg/dL (9-23); Calcium 8.3 mg/dL (8.3-10.6); Carbon Dioxide 20.5 mMol/L (20.0-31.0); Chloride 106 mMol/L (98-107); Creatinine (Component) 1.5 mg/dL (0.6-1.3); Estimated Creatinine Clearance 41.9 mL/min (>60); Glucose 87 mg/dL (74-106); Magnesium 1.9 mg/dL (1.6-2.6); Osmolality,Calculated 279 (275-295); Phosphorous 3.2 mg/dL (2.4-5.1); Potassium 3.4 mMol/L (3.4-5.1); Sodium 139 mMol/L (136-145); eGFR > 60 See Note
[2025-04-04 08:00] VITALS: BP 134/93; PULSE 92; PULSE 93; RESP 15; TEMP 36.2; O2SAT 98
[2025-04-04] MEDS: TAMSULOSIN HCL 0.4 MG CAPSULE PO (08:36)
[2025-04-04 08:37] VITALS: BP 136/94; PULSE 96
[2025-04-04 08:38] VITALS: BP 134/94; PULSE 96
--- NOTE | 2025-04-04 11:46 | ESDS_ITS ---
<Statement entered by Jeanette Boo MD - 04/15/25 09:07> I reviewed above note and agree with findings and plans. I have also personally examined the patient with medicine team and went over assessment and plan with medical team including corporate strategy intern and resident physician. <Statement entered by Jose Flores MD - 04/04/25 15:25> Note reviewed and agree with care plan as documented. Please refer to the note below for further details. Plan discussed with attending physician Dr. Ema Flores MD PGY-2 Internal Medicine Planned Discharge Date 04/04/25 DS: Providers Provider Date of admission: 04/02/25 21:23 Primary care physician: Vandana Sears NP Admitting Provider: Matty Edwards MD Attending Provider on Admission: Matty Edwards MD Consults: 04/02/25 20:30 Consult to Urology Stat Comment: Procedure tomorrow Consulting Provider: Gisel Morelos 04/03/25 17:51 [facility] Referral - Transportation Routine Comment: Positive screening for transportation needs. Attending Provider on DC: Jeanette Boo MD Discharging Provider: Siddharth Quinn DO DS: Diagnosis Discharge Diagnosis (1) Bilateral kidney stones: Status: Acute (2) Cystitis: Status: Acute (3) Pyelonephritis: Status: Acute (4) Staghorn calculus: Status: Acute Problem List Completed Was Problem List Reviewed/Reconciled?: Yes Hospital Course Hospital Course Hospital course: Hospital Course: Mr. 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 Patient is admitted for hypertensive emergency, and management of bilateral staghorn calculi with bilateral ureteral stents. Urology was consulted. A cystoscopic examination with ureteral dilation and bilateral retrograde pyelogram with laser stone fragmentation and removal of bilateral ureteral stent with replacement of bilateral ureteral stent was performed by urology. The patient tolerated the procedure well and will follow-up with urology in 3 months. The patient's vitals are stable on discharge. He will be discharged on a 10-day course of Keflex for his UTI. 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 Continue taking all other home medications as prescribed ? Follow-up with PCP within 1-2 weeks of discharge ? Keep catheter in place for four days and see PCP for removal. - Stop Augmentin. Take Cephalexin twice a day for 10 days to complete antibiotic course. ? Follow-up with Dr. Morelos outpatient in 4 months. - Continue all other home medications ? If you do not have a PCP, you can follow-up at the [facility] (you can call [phone] to make an appointment) ? Return to ED if symptoms worsen or recur. The patient was seen and discussed with my attending physician Dr. Ema AMARO and my senior resident Dr. Sandra AMARO PGY-2. Siddharth Quinn DO PGY-1 Time Spent with Patient Time attestation: Total time spent providing and/or coordinating discharge services: More than 50% Time spent: Greater than 30 minutes Exam Vital Signs Temp Pulse Resp BP Pulse Ox O2 Del Method O2 Flow Rate 97.1 F 96 15 134/94 H 98 Room Air 2 04/04/25 08:00 04/04/25 08:38 04/04/25 08:00 04/04/25 08:38 04/04/25 08:00 04/04/25 08:00 04/03/25 16:14 Narrative Exam General: Awake and in no acute distress. Conversational and non-toxic appearing. Neurologic: GCS 15. Alert and oriented x3, no gross neurological deficit, and patient able to move all 4 extremities. HEENT: Normocephalic, atraumatic, mucous membranes moist. Pupils reactive to light. Heart: Regular rate and rhythm, normal S1 and S2, no murmurs. Lungs: Clear to auscultation bilaterally with no wheezing or crackles. Abdomen: Soft, nondistended, nontender, positive bowel sounds. No guarding or rebound tenderness. Extremities: Disproportionate shortening of lower extremities due to spina bifida. No edema. 2+ radial and dorsalis pedis pulses bilaterally. Skin: Warm. Dry. No rash or ecchymoses. Discharge Plan Plan Patient Disposition: HOME (Self Care) Patient condition on transfer: Stable Care Plan Goals: ? Continue taking all other home medications as prescribed ? Follow-up with PCP within 1-2 weeks of discharge ? Keep catheter in place for four days and see PCP for removal. - Stop Augmentin. Take Cephalexin twice a day for 10 days to complete antibiotic course. ? Follow-up with Dr. Morelos outpatient in 4 months. - Continue all other home medications ? If you do not have a PCP, you can follow-up at the [facility] (you can call [phone] to make an appointment) ? Return to ED if symptoms worsen or recur. Prescriptions/Referrals Prescriptions/Med Rec: New cephalexin 500 mg capsule 500 mg PO BID 10 Days Qty: 20 0RF Continued amlodipine 10 mg tablet 10 mg PO DAILY Patient Comments: TAKE 1 TABLET BY MOUTH EVERY DAY acetaminophen-codeine 300-30 mg tablet 2 tab PO Q8H MDD 6 PRN (Reason: pain) Qty: 20 0RF metoprolol succinate 100 mg tablet extended release 24 hr 100 mg PO BID Qty: 60 0RF losartan 25 mg tablet 25 mg PO DAILY Patient Comments: TAKE 1 TABLET BY MOUTH EVERY DAY clonidine HCl 0.1 mg tablet 0.1 mg PO BID Patient Comments: TAKE 1 TABLET BY MOUTH TWICE A DAY ondansetron 4 mg tablet,disintegrating 4 mg PO Q6H PRN (Reason: nausea and vomiting) Patient Comments: DISSOLVE 1 TABLET UNDER THE TONGUE THREE TIMES A DAY NEEDED FOR NAUSEA AND VOMITING FOR 30 DAYS Discontinued amoxicillin-pot clavulanate 875-125 mg tablet 1 tab PO BID Qty: 20 0RF Referrals: Vandana Sears NP [Primary Care Provider] Patient/Caregiver Discharge Instructions Discharge Activity: activity as tolerated Education Materials: Urinary Tract Infections in Men, Understanding Urinary Tract ... Print Language: Kiswahili Stand Alone Forms: Elyla Award Info., Patient Portal Info Letter Discharge Order Discharge Orders: Discharge (Routine); Ordered 04/04/25 Ordered By: Jose Flores Quality Discharge Quality Measures none
[2025-04-04 12:00] VITALS: BP 133/91; PULSE 88; PULSE 90; RESP 14; TEMP 36.2; O2SAT 99
--- NOTE | 2025-04-04 16:08 | PC.SS ---
Patient is alert/oriented. Patient was able to verify demographics. Patient was admitted for flank pain. Patient is non ambulatory. Patient states he lives alone. Patient uses a manual wheelchair. He does all his own transfers. PCP: Vandana Sears, [facility] @ [facility]. Pharmacy: [facility] Urologist: Dr. Morelos Patient states his friends provide transport. Patient will take medivan home. Alt medical decision maker: Mother, Yesenia Michael,
== END 2025-04-04 13:12 | disposition home or self-care (01) | DRG 463 ==
LOC: SERX 22:48 → SERHOLD 23:04 → S2NX 04-03 17:20 → S3NX 04-03 22:26
PROVIDERS: Physician Assistant; Urology; Admitting Provider Internal Medicine; Emergency Provider Emergency Medicine; PCP Nurse Practitioner Family; Visit Provider Internal Medicine
PROC: 0TJB8ZZ Inspection of Bladder, Via Natural or Artificial Opening Endoscopic (ICD-10-PCS; CPT 52000; principal; 2025-04-03 14:00)
DX: N30.90 Cystitis, unspecified without hematuria (principal); N13.6 Pyonephrosis; N12 Tubulo-interstitial nephritis, not specified as acute or chronic; Q05.9 Spina bifida, unspecified; Z99.3 Dependence on wheelchair; I12.9 Hypertensive chronic kidney disease with stage 1 through stage 4 chronic kidney disease, or unspecified chronic kidney disease; N18.31 Chronic kidney disease, stage 3a; N17.9 Acute kidney failure, unspecified; Z87.440 Personal history of urinary (tract) infections; N13.9 Obstructive and reflux uropathy, unspecified; D50.9 Iron deficiency anemia, unspecified; F17.200 Nicotine dependence, unspecified, uncomplicated; I16.1 Hypertensive emergency; K59.00 Constipation, unspecified; N20.0 Calculus of kidney; N31.9 Neuromuscular dysfunction of bladder, unspecified; Z87.442 Personal history of urinary calculi; Z98.2 Presence of cerebrospinal fluid drainage device; Z88.5 Allergy status to narcotic agent
CPT/HCPCS: 36415; 74420; 80048; 80053; 81001; 83605; 83735; 84100; 84145; 85025; 85610; 87040; 87077; 87086; 87186; 93225; 96361; 96365; 96375; 96376; 99284; A4217; A4649; C1769; C1889; C1894; C2617; J0360; J0696; J1171; J1580; J1938; J2250; J2270; J2405; J2470; J2704; J3010; J3490; J7030; A9270; J1920

== ENCOUNTER 2025-04-30 21:48 | Inpatient (IN) | payer MEDICAID, SELFPAY ==
[2025-04-30 21:49] VITALS: BMI 28.1
[2025-04-30 21:58] VITALS: BP 175/92; PULSE 109; RESP 20; TEMP 37.2; O2SAT 99
--- NOTE | 2025-04-30 22:24 | XR_ITS ---
Examination: CT abdomen and pelvis without contrast. Coronal 3-D reconstructions. Sagittal 2-D reconstructions. Date and time of exam: April 30, 2025, 11:50 p.m., comparison February 28, 2025 INDICATIONS: Bilateral flank pain today, history kidney stones, history bilateral renal calculi and bilateral ureteral stents on CT stone study February 28, 2025 CTDI: vol (mGy): 4.98 DLP: (mGycm): 247 Technique: Axial images of the abdomen have been obtained, 3 mm slice thickness Intravenous contrast material has not been administered. Low dose protocols were performed. One or more of the following dose reduction techniques were used; automated exposure control, adjustment of the mA and/or KV according to patient size, use of iterative reconstruction technique. Findings: No visualized liver or splenic lesion Contracted gallbladder No pancreatic mass Edematous appearing right kidney consistent with right pyelonephritis Numerous bilateral renal calculi, bilateral ureteral stents satisfactory position with moderate right and mild left hydronephrosis Aorta normal size Abundant stool in the colon No diverticulitis Marked thickening of the urinary bladder wall, cystitis pattern Soft tissue defect extending from the posterior pelvis to the anus as well as soft tissue defect posterior to the right hip again noted Again identified fluid collection posterior to lower lumbar vertebral bodies IMPRESSION: Numerous bilateral renal calculi Edematous appearing right kidney consistent with the acute right pyelonephritis Again noted moderate right and mild left hydronephrosis, ureteral stents appear in satisfactory position Consider urology consultation for replacement of the right ureteral stent
--- NOTE | 2025-04-30 22:26 | EDNOTE_ITS ---
ED Male Genitalurinary RME/HPI General Chief complaint: Urogenital-Male Stated complaint: BILATERAL FLANK PAIN Time Seen by Provider: 04/30/25 22:10 Source: patient, RN notes reviewed and old records reviewed Arrival date/time: 04/30/25 21:48 Mode of arrival: wheelchair Limitations: no limitations RME / HPI RME / HPI Narrative: 35yom with pmhx of spina bifida (wheelchair-bound), QUESTIONED DOCUMENTS EXAMINER shunt, recurrent UTI/staghorn kidney stones (self-cath) and HTN presents to ED for bilateral flank pain that initiated yesterday. Patient reports subjective fever, chills and malodorous cloudy urine. History of multiple hospitalizations for pyelonephritis, chronic UTIs and kidney stones. Patient had bilateral ureteral stents removed then replaced by Dr. Morelos during admission 04/03/2025. No medications or treatments since symptom onset. No n/v reported. Related Data Home Medications ?Medication ?Instructions ?Recorded ?Confirmed amlodipine 10 mg tablet 10 mg PO DAILY 06/06/2403/25 clonidine HCl 0.1 mg tablet 0.1 mg PO BID 01/14/2505/18 losartan 25 mg tablet 25 mg PO DAILY 01/14/2503/25 ondansetron 4 mg disintegrating 4 mg PO Q6H PRN nausea and vomiting 04/03/25 04/03/25 tablet Previous Rx's ?Medication ?Instructions ?Recorded acetaminophen 300 mg-codeine 30 mg 2 tab PO Q8H PRN pa in #20 tabs 03/01/25 tablet metoprolol succinate 100 mg 100 mg PO BID #60 tabs 03/18 tablet,extended release 24 hr Allergies Allergy/AdvReac Type Severity Reaction Status Date / Time hydrocodone (From [place]) Allergy Severe ITCH Verified 04/02/25 18:22 latex Allergy Severe RASH Verified 04/02/25 18:21 Review of Systems Review of Systems Systems Reviewed: All systems reviewed, normal except as documented Constitutional Constitutional: Reports chills and Reports fever(s) (subjective) Gastrointestinal Gastrointestinal: Denies abdominal pain, Denies nausea and Denies vomiting Genitourinary Genitourinary: Reports flank pain Comments: Reports malodorous urine Past Medical History Past Medical History NEUROLOGIC: Positive Spina Bifida and Migraine CARDIAC: Positive Hypertension GENITOURINARY: Positive Kidney Stones (bilateral renal stents) and Neurogenic Bladder MUSCULOSKELETAL: Positive Fractures HEMATOLOGIC: Positive Anemia PSYCHO/SOCIAL: Positive Depression and Anxiety OTHER HISTORY: Positive Hospitalization and Blood Transfusions Surgical History OTHER SURGICAL HX: QUESTIONED DOCUMENTS EXAMINER shunt, multiple urologic procedures including bilateral ureteral stent placement, laser stone fragmentation and laser bladder stone fragmentation Social History SMOKING STATUS: Never smoker SUBSTANCE USE: marijuana ALCOHOL: Never ED Exam General Limitations: Present no limitations General appearance: Present alert, in no apparent distress and other (Wheelchair-bound. Appears uncomfortable 2/2 pain) Head Head exam: Present atraumatic and normocephalic Eye Eye exam: Present normal appearance, PERRL and EOMI ENT ENT exam: Present normal exam and mucous membranes moist Neck Neck exam: Present normal inspection and full ROM Chest Chest inspection: Present normal inspection and symmetric chest wall rise Respiratory Respiratory exam: Present normal lung sounds bilaterally; Absent respiratory distress Cardiovascular Cardiovascular exam: Present normal rhythm and tachycardia (Mild, HR 110) Abdominal Exam Abdominal exam: Present soft; Absent distention, tenderness, guarding or rebound Extremities Exam Extremities exam: Present other (No edema) Back Exam Back exam: Present CVA tenderness (R) and CVA tenderness (L) Neurological Exam Neurological exam: Present alert and oriented X3 Psychiatric Psychiatric exam: Present normal affect and normal mood Skin Skin exam: Present warm, dry and intact Course Course Course Narrative: 0025: Patient reassessed. Still c/o pain, will order additional meds. Discussed plan for admit for pyelo and TRINI. 0042: Attempted to contact, Dr. Morelos. Call went to , left message for callback. 0055: Spoke to hospital resident, Dr. Mcintyre. Would like to wait for consult with Dr. Morelos for dispo 0100: Case discussed with ED attending, Dr. Salinas 0130: Patient signed out to Dr. Sailnas Quality Measures none Orders Category Date Time Status COVID-19 Screening Questionnaire NOW Care 05/01/25 07:57 Completed Decision to Admit X1 Care 05/01/25 07:57 Completed Consult to Urology Stat Cons 05/01/25 06:[address] abdomen pelvis wo con Stat Exams 04/30/25 22:24 Completed Blood Culture (Lab) Stat Lab 05/01/25 00:20 Received CBC Stat Lab 04/30/25 22:50 Completed CMP [Comprehensive Metabolic Panel] Stat Lab 04/30/25 22:50 Completed Lipase Stat Lab 04/30/25 22:50 Completed UA [Urinalysis] Stat Lab 04/30/25 23:50 Completed Urine Culture Stat Lab 04/30/25 23:50 Received CIPROFLOXACIN/D5w 400 MG IVPB [Cipro Ivpb] Med 05/01/25 06:58 Discontinued 400 mg in 200 ml IV X1 HYDROmorphone INJ [Dilaudid Inj] Med 05/01/25 03:40 Discontinued 1 mg IVP X1 ONE HYDROmorphone INJ [Dilaudid Inj] Med 05/01/25 00:21 Discontinued 2 mg IVP X1 ONE Ketorolac Inj [Toradol Inj] Med 05/01/25 03:40 Discontinued 30 mg IVP X1 ONE Metoclopramide Inj [Reglan Inj] Med 05/01/25 03:40 Discontinued 10 mg IVP X1 ONE Morphine* Inj Med 04/30/25 22:24 Discontinued 4 mg IVP X1 ONE Morphine* Inj Med 05/01/25 06:28 Discontinued 4 mg IVP X1 ONE Ondansetron Inj [Zofran Inj] Med 04/30/25 22:24 Discontinued 4 mg IVP X1 ONE Ondansetron Inj [Zofran Inj] Med 05/01/25 03:40 Discontinued 4 mg IVP X1 ONE Ondansetron Inj [Zofran Inj] Med 05/01/25 06:28 Discontinued 4 mg IVP X1 ONE Ringers Lactated 1000 ml [Lactated Ringers] 1,000 ml Med 05/01/25 03:16 Discontinued IV 250 mls/hr Sodium Chloride 0.9% 1000 ml [Ns] 1,000 ml Med 04/30/25 22:26 Discontinued IV 999 mls/hr Sodium Chloride 0.9% 1000 ml [Ns] 1,000 ml Med 04/30/25 23:38 Discontinued IV 999 mls/hr amLODIPine BESYLATE [Norvasc] Med 05/01/25 06:28 Discontinued 10 mg PO X1 ONE cefTRIAXone/D5w 1gm IV premix [Rocephin/D5w 1gm IV Med 05/01/25 00:21 Discontinued premix] 1 gm in 50 ml IV X1 cloNIDine HCL [Catapres] Med 05/01/25 06:28 Discontinued 0.2 mg PO X1 ONE Vital Signs Vital signs: Vital Signs Temperature 99 F 04/30/25 21:58 Pulse Rate 109 H 04/30/25 21:58 Respiratory Rate 20 04/30/25 21:58 Blood Pressure 175/92 H 04/30/25 21:58 Pulse Oximetry (%) 99 04/30/25 21:58 Oxygen Delivery Method Room Air 04/30/25 21:58 Urogenital - Male MDM Narrative MDM Narrative:: 35yom with pmhx of spina bifida (wheelchair-bound), QUESTIONED DOCUMENTS EXAMINER shunt, recurrent UTI/staghorn kidney stones (self-cath) and HTN presents to ED for bilateral flank pain that initiated yesterday. Patient reports subjective fever, chills and malodorous cloudy urine. History of multiple hospitalizations for pyelonephritis, chronic UTIs and kidney stones. Patient had bilateral ureteral stents removed then replaced by Dr. Morelos during admission 04/03/2025. No medications or treatments since symptom onset. No n/v reported. Patient to be admitted vs transferred for TRINI, pyelo. IVF and antibiotics administered in ED. BC and UC send and pending. Patient data External records reviewed:: [facility] previous records (04/02/25 admit for flank pain) Clinical information provided by:: patient Social determinants that could affect healthcare access:: other (specify) (poor access to healthcare) Patient has the following chronic illnesses:: kidney stones, spina bifida, chronic UTIs, self caths How is presenting disease/condition affected by chronic disease/condition?: caused by Evaluation data The following diagnostics were reviewed and interpreted by me:: lab results and radiology exam(s) Lab and/or radiology exams considered but not ordered:: none Interpretation Summary: No leukocytosis Hgb 8.3, similar to prior labs. History of anemia Cr. 2.5, acute TRINI. Increased from baseline ~1.6 UA +leuks, nitrites, blood CT abd/pelvis: IMPRESSION: Numerous bilateral renal calculi Edematous appearing right kidney consistent with the acute right pyelonephritis Again noted moderate right and mild left hydronephrosis, ureteral stents appear in satisfactory position Consider urology consultation for replacement of the right ureteral stent Dictated By: Hao Palafox MD Medications / Prescriptions Medications or Prescriptions considered but not ordered:: none Medication administrations:: Medication Administration History Acetaminophen (Acetaminophen 325 Mg Tablet) 650 mg PO Q6H PRN PRN Reason: Fever >100.4 Stop: 05/31/25 08:09 Acetaminophen (Acetaminophen 325 Mg Tablet) 650 mg PO Q6H PRN PRN Reason: PAIN SCALE 1-3 (mild Stop: 05/31/25 08:09 Hydromorphone HCl (Hydromorphone Inj 2 Mg/Ml Vial) 1 mg IVP Q4HR PRN PRN Reason: PAIN SCALE 7-10 (Severe Stop: 05/06/25 09:04 Last Admin: 05/01/25 13:38 Dose: 1 mg Documented By: Admin: 05/01/25 09:27 Dose: 1 mg Documented By: CACHORRO Lactated Ringer's (Lactated Ringers) 1,000 mls @ 75 mls/hr IV .[id number] ARACELY Stop: 05/01/25 21:34 Last Admin: 05/01/25 09:25 Dose: 75 mls/hr Documented By: CACHORRO Piperacillin/Tazobactam/Dextrose (Zosyn) 3.375 gm in 50 mls @ 12.5 mls/hr IV Q8HR ARACELY; Protocol Stop: 05/08/25 21:59 Ondansetron HCl (Ondansetron Inj 2 Mg/Ml Inj 2 Ml) 4 mg IVP Q8HR PRN; Protocol PRN Reason: NAUSEA OR VOMITING Stop: 05/31/25 10:20 Discontinued Medications Amlodipine Besylate (Amlodipine Besylate 5 Mg Tablet) 10 mg PO X1 ONE Stop: 05/01/25 06:29 Last Admin: 05/01/25 06:40 Dose: 10 mg Documented By: BOB Clonidine (Clonidine Hcl 0.1 Mg Tablet) 0.2 mg PO X1 ONE Stop: 05/01/25 06:29 Last Admin: 05/01/25 06:40 Dose: 0.2 mg Documented By: BOB Hydromorphone HCl (Hydromorphone Inj 2 Mg/Ml Vial) 2 mg IVP X1 ONE Stop: 05/01/25 00:22 Last Admin: 05/01/25 00:26 Dose: 2 mg Documented By: BOB Hydromorphone HCl (Hydromorphone Inj 2 Mg/Ml Vial) 1 mg IVP X1 ONE Stop: 05/01/25 03:41 Last Admin: 05/01/25 03:52 Dose: 1 mg Documented By: HANG Sodium Chloride (Ns) 1,000 mls @ 999 mls/hr IV .Q1H1M ONE Stop: 04/30/25 23:26 Last Infusion: 05/01/25 00:32 Dose: Infused Documented By: Admin: 04/30/25 23:22 Dose: 999 mls/hr Documented By: BOB Sodium Chloride (Ns) 1,000 mls @ 999 mls/hr IV .Q1H1M ONE Stop: 05/01/25 00:38 Last Infusion: 05/01/25 03:32 Dose: Infused Documented By: Admin: 05/01/25 00:17 Dose: 999 mls/hr Documented By: BOB Ceftriaxone Sodium/Dextrose (Rocephin/D5w 1gm Iv Premix) 1 gm in 50 mls @ 100 mls/hr IV X1 ONE Stop: 05/01/25 00:50 Last Infusion: 05/01/25 01:37 Dose: Infused Documented By: Admin: 05/01/25 00:26 Dose: 100 mls/hr Documented By: BOB Lactated Ringer's (Lactated Ringers) 1,000 mls @ 250 mls/hr IV .Q4H ONE Stop: 05/01/25 07:15 Last Infusion: 05/01/25 09:06 Dose: Infused Documented By: Admin: 05/01/25 03:43 Dose: 250 mls/hr Documented By: HANG Ciprofloxacin/Dextrose (Cipro Ivpb) 400 mg in 200 mls @ 200 mls/hr IV X1 ONE Stop: 05/01/25 07:57 Last Infusion: 05/01/25 08:30 Dose: Infused Documented By: Admin: 05/01/25 07:30 Dose: 200 mls/hr Documented By: CACHORRO Ciprofloxacin/Dextrose (Cipro Ivpb) 200 mg in 100 mls @ 100 mls/hr IV Q12HR ARACELY Stop: 05/09/25 08:59 Ciprofloxacin/Dextrose (Cipro Ivpb) 200 mg in 100 mls @ 100 mls/hr IV Q12HR ARACELY Stop: 05/08/25 20:59 Piperacillin/Tazobactam/Dextrose (Zosyn) 3.375 gm in 50 mls @ 12.5 mls/hr IV Q8HR ARACELY; Protocol Stop: 05/08/25 09:14 Last Infusion: 05/01/25 13:37 Dose: Infused Documented By: Admin: 05/01/25 09:27 Dose: 12.5 mls/hr Documented By: CACHORRO Ketorolac Tromethamine (Ketorolac Inj 30 Mg/Ml Vial) 30 mg IVP X1 ONE Stop: 05/01/25 03:41 Last Admin: 05/01/25 03:52 Dose: 30 mg Documented By: HANG Metoclopramide HCl (Metoclopramide Inj 5 Mg/Ml Vial 2 Ml) 10 mg IVP X1 ONE; Protocol Stop: 05/01/25 03:41 Last Admin: 05/01/25 03:52 Dose: 10 mg Documented By: HANG Morphine Sulfate (Morphine Sulf Inj 4 Mg/Ml Vial) 4 mg IVP X1 ONE Stop: 04/30/25 22:25 Last Admin: 04/30/25 23:21 Dose: 4 mg Documented By: BOB Morphine Sulfate (Morphine Sulf Inj 4 Mg/Ml Vial) 4 mg IVP X1 ONE Stop: 05/01/25 06:29 Last Admin: 05/01/25 06:40 Dose: 4 mg Documented By: BOB Ondansetron HCl (Ondansetron Inj 2 Mg/Ml Inj 2 Ml) 4 mg IVP X1 ONE; Protocol Stop: 04/30/25 22:25 Last Admin: 04/30/25 23:22 Dose: 4 mg Documented By: BOB Ondansetron HCl (Ondansetron Inj 2 Mg/Ml Inj 2 Ml) 4 mg IVP X1 ONE; Protocol Stop: 05/01/25 03:41 Last Admin: 05/01/25 03:51 Dose: 4 mg Documented By: HANG Ondansetron HCl (Ondansetron Inj 2 Mg/Ml Inj 2 Ml) 4 mg IVP X1 ONE; Protocol Stop: 05/01/25 06:29 Last Admin: 05/01/25 06:41 Dose: 4 mg Documented By: BOB above medications administered in ED Consultations Consultation(s) initiated? (list below): Yes Consultation #1 (Physician, Specialty, Details): 0042: Attempted to contact, Dr. Morelos. Call went to , left message for callback. Diagnosis Urogenital Male Differential Diagnosis: other (UTI, kidney stone, renal colic, pyelonephritis, TRINI, electrolyte imbalance, dehydration) Most likely diagnosis given after review of the tests above:: Pyelonephritis, TRINI Admission Indicated Admission indicated?: indicated Admission Request Was there a request for admission?: Yes Admission Attestation Admission request attestation: Discussed case with [] from Hospitalist service regarding admission. Discussed patients ED course, exam findings, labs, and radiology results. The Hospitalist [agrees,declines] to accept the patient for admission. 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
[2025-04-30 23:18] VITALS: BP 192/142; PULSE 110; RESP 20; TEMP 37.3; O2SAT 100
[2025-04-30 23:18] LABS: Basophils # (Auto) 0.0 Thou/mm3 (0.0-0.2); Basophils % (Auto) 0 % (0-2.5); Eosinophils # (Auto) 0.1 Thou/mm3 (0.0-0.5); Eosinophils % (Auto) 1 % (0-10); Hematocrit 27.4 % (41.0-53.0); Immature Granulocytes Auto 0.02 Thou/mm3 (0.00-0.00); Lymphocytes # (Auto) 0.8 Thou/mm3 (1.0-4.8); Lymphocytes % (Auto) 8 % (10-50); Mean Corpuscular HGB Conc 30.3 g/dl (31.0-37.0); Mean Corpuscular Hemoglobin 22.5 pg (25.0-35.0); Mean Corpuscular Volume 74 fL (80-100); Monocytes # (Auto) 0.4 Thou/mm3 (0.0-0.8); Monocytes % (Auto) 4 % (0-12); Neutrophils # (Auto) 9.0 Thou/mm3 (1.8-7.7); Neutrophils % (Auto) 87 % (37-80); Nucleated Red Blood Cell # 0.00 Thou/mm3 (0.00-0.00); Nucleated Red Blood Cell % 0 /100 WBC (0); Platelet Count 311 Thou/mm3 (140-440); RDW Standard Deviation 48.7 fL (35.1-43.9); Red Blood Count 3.69 Miln/mm3 (4.50-5.90); White Blood Count 10.3 Thou/mm3 (3.8-10.6)
[2025-04-30 23:21] LABS: Hemoglobin 8.3 g/dL (13.5-16.0)
[2025-04-30] MEDS: MORPHINE SULF INJ 4 MG/ML VIAL IVP (23:21)
[2025-04-30] MEDS: ONDANSETRON INJ 2 MG/ML INJ 2 ML 4 MG IVP (23:22)
[2025-04-30] MEDS: SODIUM CHLORIDE 0.9% 1000 ML 1,000 ML 999 ML IV (23:22)
[2025-04-30 23:36] LABS: Alanine Aminotransferase 11 U/L (10-49); Albumin, Serum 4.3 gm/dL (3.5-5.0); Albumin/Globulin Ratio 1.7 (1.2-2.2); Alkaline Phosphatase 102 U/L (46-116); Anion Gap 12 (7-16); Aspartate Amino Transferase 12 U/L (0-34); BUN/Creatinine Ratio 14 Ratio (12-20); Bilirubin,Total 0.5 mg/dL (0.3-1.2); Blood Urea Nitrogen 35 mg/dL (9-23); Calcium 9.1 mg/dL (8.3-10.6); Calcium (Corrected) 9.1 mg/dL (8.5-10.1); Carbon Dioxide 23.3 mMol/L (20.0-31.0); Chloride 104 mMol/L (98-107); Creatinine (Component) 2.5 mg/dL (0.6-1.3); Estimated Creatinine Clearance 28.8 mL/min (>60); Globulin 2.5 gm/dL (2.3-3.5); Glucose 100 mg/dL (74-106); Lipase 48 U/L (12-53); Osmolality,Calculated 285 (275-295); Potassium 3.6 mMol/L (3.4-5.1); Sodium 139 mMol/L (136-145); Total Protein 6.8 gm/dL (5.7-8.2); eGFR 34 See Note
[2025-05-01] VITALS (11 sets, daily range): BP systolic 146–196; BP diastolic 89–139; PULSE 88–106; RESP 16–18; TEMP 36.1–37.4; O2SAT 95–100; BMI 24.4
[2025-05-01] MEDS: SODIUM CHLORIDE 0.9% 1000 ML 1,000 ML 999 ML IV (00:17)
[2025-05-01 00:22] LABS: Collection Type, Urine Catheter
[2025-05-01 00:23] LABS: Bacteria,Urine 2+; Bilirubin,Urine Negative (Negative); Blood,Urine 2+ (Negative); Glucose, Urine Negative (Negative); Ketones,Urine Negative (Negative); Leukocyte Esterase,Urine Positive (Negative); Nitrite,Urine Positive (Negative); PH,Urine 8.0 (5.0-7.0); Protein,Urine 3+ (Neg - Trace); RBC,Urine 35 /hpf (0-3); Specific Gravity,Urine 1.010 (1.001-1.035); Squamous Epithelial Cell,Urine 2 /hpf (0-5); Urobilinogen,Urine Negative mg/dL (0.0-1.0); WBC,Urine 128 /hpf (0-5)
[2025-05-01 00:26] LABS: Clarity,Urine Cloudy (Clear/Hazy); Color,Urine Amber (Lt Yel-Yel)
[2025-05-01] MEDS: HYDROmorphone INJ 2 MG/ML VIAL IVP (00:26)
[2025-05-01] MEDS: cefTRIAXone/D5w 1gm IV premix 1 GM/50 ML BAG IV (00:26)
--- NOTE | 2025-05-01 02:02 | PD.EDADDENDU ---
Emergency Room Addendum Addendum Narrative: I took over the care from Cody Evans PA-C at 2 AM on 05/01/2025, see notes for complete H&P and ED course. I reviewed all diagnostic test results. At this point, diagnoses include Treatment here included Significant improvement Not yet done: I discussed the case with our hospitalist. About the presentation and exam and diagnostics and treatments here. And need of further care in the hospital. Will accept the patient. Not yet done: Based on my best medical judgment, made decision no further evaluation or treatment indicated at this time. Patient understands and agrees to the discharge instructions customized and printed, see below. Torsten Salinas MD
[2025-05-01] MEDS: RINGERS LACTATED 1000 ML 1,000 ML 250 ML IV (03:43)
[2025-05-01] MEDS: ONDANSETRON INJ 2 MG/ML INJ 2 ML 4 MG IVP ×2 (03:51→06:41)
[2025-05-01] MEDS: HYDROmorphone INJ 2 MG/ML VIAL 1 MG IVP ×5 (03:52→23:49)
[2025-05-01] MEDS: METOCLOPRAMIDE INJ 5 MG/ML VIAL 2 ML 10 MG IVP (03:52)
[2025-05-01] MEDS: KETOROLAC INJ 30 MG/ML VIAL IVP (03:52)
[2025-05-01] MEDS: MORPHINE SULF INJ 4 MG/ML VIAL IVP (06:40)
--- NOTE | 2025-05-01 06:48 | EDNOTE_ITS ---
<Statement entered by Gina Rodriguez MD - 05/15/25 14:08> I, Gina Rodriguez MD, have reviewed the history, exam, and assessment of the patient. I have evaluated the patient independently and agree with the plan of care documented by [ ]. All diagnostic studies were reviewed and discussed. I confirm the diagnosis as documented by the Resident. I was present during the Medical Decision Making for this patient. The patient's plan of care was created between myself and the Resident and consistent with our discussion of the patient's case. 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 Patient reports she has had similar symptoms to this before. Of note patient has had multiple hospitalizations for pyelonephritis due to chronic UTIs and stones. Patient reports that he recently had his ureteral stents replaced by Dr. Morelos about a month ago. He denies any recent travel or sick contacts at this time. He says he feels like he has a subjective fever. Denies any chest pain, shortness of breath, numbness, tingling. He has no other complaints at this time. Related Data Home Medications ?Medication ?Instructions ?Recorded ?Confirmed amlodipine 10 mg tablet 10 mg PO DAILY 06/06/2403/25 clonidine HCl 0.1 mg tablet 0.1 mg PO BID 01/14/2505/18 losartan 25 mg tablet 25 mg PO DAILY 01/14/2503/25 ondansetron 4 mg disintegrating 4 mg PO Q6H PRN nausea and vomiting 04/03/25 04/03/25 tablet Previous Rx's ?Medication ?Instructions ?Recorded acetaminophen 300 mg-codeine 30 mg 2 tab PO Q8H PRN pa in #20 tabs 03/01/25 tablet metoprolol succinate 100 mg 100 mg PO BID #60 tabs 03/18 tablet,extended release 24 hr Allergies Allergy/AdvReac Type Severity Reaction Status Date / Time hydrocodone (From [place]) Allergy Severe ITCH Verified 04/02/25 18:22 latex Allergy Severe RASH Verified 04/02/25 18:21 Review of Systems Review of Systems Narrative Review of Systems: 12 point ROS reviewed and is otherwise negative unless stated directly in the HPI ED Exam Narrative Physical exam: GEN: AOx3, able to speak full sentences, lying in bed comfortably HEENT: NC/AC, oral mucosa moist, neck supple CVS: RRR, S1-S2 present, no murmurs appreciated RESP: CTAB GI: Spontaneous guarding, abdomen soft. : Bilateral CVA tenderness MSK: Bilateral lower extremity wasting, unable to move lower extremities. SKIN: warm and dry SANITARY PLUMBER: CN II-XII and Sensation grossly intact. General Limitations: Present no limitations General appearance: Present alert, in no apparent distress and other (Wheelchair-bound. Appears uncomfortable 2/2 pain) Course Course Course Narrative: 0025: Patient reassessed. Still c/o pain, will order additional meds. Discussed plan for admit for pyelo and TRINI. 0042: Attempted to contact, Dr. Morelos. Call went to , left message for callback. 0055: Spoke to hospital resident, Dr. Mcintyre. Would like to wait for consult with Dr. Morelos for dispo 0100: Case discussed with ED attending, Dr. Slainas 0130: Patient signed out to Dr. Salinas Quality Measures none Orders Category Date Time Status COVID-19 Screening Questionnaire NOW Care 05/01/25 07:57 Active Decision to Admit X1 Care 05/01/25 07:57 Active Consult to Urology Stat Cons 05/01/25 06:[address] abdomen pelvis wo con Stat Exams 04/30/25 22:24 Completed Blood Culture (Lab) Stat Lab 05/01/25 00:20 Received CBC Stat Lab 04/30/25 22:50 Completed CMP [Comprehensive Metabolic Panel] Stat Lab 04/30/25 22:50 Completed Lipase Stat Lab 04/30/25 22:50 Completed UA [Urinalysis] Stat Lab 04/30/25 23:50 Completed Urine Culture Stat Lab 04/30/25 23:50 Received CIPROFLOXACIN/D5w 400 MG IVPB [Cipro Ivpb] Med 05/01/25 06:58 Discontinued 400 mg in 200 ml IV X1 HYDROmorphone INJ [Dilaudid Inj] Med 05/01/25 03:40 Discontinued 1 mg IVP X1 ONE HYDROmorphone INJ [Dilaudid Inj] Med 05/01/25 00:21 Discontinued 2 mg IVP X1 ONE Ketorolac Inj [Toradol Inj] Med 05/01/25 03:40 Discontinued 30 mg IVP X1 ONE Metoclopramide Inj [Reglan Inj] Med 05/01/25 03:40 Discontinued 10 mg IVP X1 ONE Morphine* Inj Med 04/30/25 22:24 Discontinued 4 mg IVP X1 ONE Morphine* Inj Med 05/01/25 06:28 Discontinued 4 mg IVP X1 ONE Ondansetron Inj [Zofran Inj] Med 04/30/25 22:24 Discontinued 4 mg IVP X1 ONE Ondansetron Inj [Zofran Inj] Med 05/01/25 03:40 Discontinued 4 mg IVP X1 ONE Ondansetron Inj [Zofran Inj] Med 05/01/25 06:28 Discontinued 4 mg IVP X1 ONE Ringers Lactated 1000 ml [Lactated Ringers] 1,000 ml Med 05/01/25 03:16 Discontinued IV 250 mls/hr Sodium Chloride 0.9% 1000 ml [Ns] 1,000 ml Med 04/30/25 22:26 Discontinued IV 999 mls/hr Sodium Chloride 0.9% 1000 ml [Ns] 1,000 ml Med 04/30/25 23:38 Discontinued IV 999 mls/hr amLODIPine BESYLATE [Norvasc] Med 05/01/25 06:28 Discontinued 10 mg PO X1 ONE cefTRIAXone/D5w 1gm IV premix [Rocephin/D5w 1gm IV Med 05/01/25 00:21 Discontinued premix] 1 gm in 50 ml IV X1 cloNIDine HCL [Catapres] Med 05/01/25 06:28 Discontinued 0.2 mg PO X1 ONE Vital Signs Vital signs: Vital Signs Temperature 99 F 04/30/25 21:58 Pulse Rate 109 H 04/30/25 21:58 Respiratory Rate 20 04/30/25 21:58 Blood Pressure 175/92 H 04/30/25 21:58 Pulse Oximetry (%) 99 04/30/25 21:58 Oxygen Delivery Method Room Air 04/30/25 21:58 Discharge Plan Plan Patient Disposition: Admit Acute Care w/in Hospital Patient condition on transfer: Stable Prescriptions/Referrals Prescriptions/Med Rec: No Action amlodipine 10 mg tablet 10 mg PO DAILY Patient Comments: TAKE 1 TABLET BY MOUTH EVERY DAY acetaminophen-codeine 300-30 mg tablet 2 tab PO Q8H MDD 6 PRN (Reason: pain) Qty: 20 0RF metoprolol succinate 100 mg tablet extended release 24 hr 100 mg PO BID Qty: 60 0RF losartan 25 mg tablet 25 mg PO DAILY Patient Comments: TAKE 1 TABLET BY MOUTH EVERY DAY clonidine HCl 0.1 mg tablet 0.1 mg PO BID Patient Comments: TAKE 1 TABLET BY MOUTH TWICE A DAY ondansetron 4 mg tablet,disintegrating 4 mg PO Q6H PRN (Reason: nausea and vomiting) Patient Comments: DISSOLVE 1 TABLET UNDER THE TONGUE THREE TIMES A DAY NEEDED FOR NAUSEA AND VOMITING FOR 30 DAYS Referrals: Vandana Sears, [employer] [Primary Care Provider] - In 1 week Problem List Clinical Impression: Pyelonephritis of right kidney, TRINI (acute kidney injury) Patient/Caregiver Discharge Instructions Print Language: Czech PA/LINEN MANAGER Supervising Physician PA/LINEN MANAGER Supervising Physician: Rita MOSER Narrative MDM hospital course (for use when minimal MDM required): 0652: Reviewed chart from previous provider. Will give clonidine, Zofran, amlodipine, morphine IV at this time and will speak with urologist. Will also give Cipro x1 due to previous enterococcus culture 0658: Spoke with urology, Dr. Morelos, who recommends patient for admission in addition to IV abx. 0727: Spoke with hospitalist team who will review case for admission. 0758: Hospitalist team accepts patient for admission. Medication Administration(s) Medication Administration History Discontinued Medications Amlodipine Besylate (Amlodipine Besylate 5 Mg Tablet) 10 mg PO X1 ONE Stop: 05/01/25 06:29 Last Admin: 05/01/25 06:40 Dose: 10 mg Documented By: BOB Clonidine (Clonidine Hcl 0.1 Mg Tablet) 0.2 mg PO X1 ONE Stop: 05/01/25 06:29 Last Admin: 05/01/25 06:40 Dose: 0.2 mg Documented By: BOB Hydromorphone HCl (Hydromorphone Inj 2 Mg/Ml Vial) 2 mg IVP X1 ONE Stop: 05/01/25 00:22 Last Admin: 05/01/25 00:26 Dose: 2 mg Documented By: BOB Hydromorphone HCl (Hydromorphone Inj 2 Mg/Ml Vial) 1 mg IVP X1 ONE Stop: 05/01/25 03:41 Last Admin: 05/01/25 03:52 Dose: 1 mg Documented By: HANG Sodium Chloride (Ns) 1,000 mls @ 999 mls/hr IV .Q1H1M ONE Stop: 04/30/25 23:26 Last Infusion: 05/01/25 00:32 Dose: Infused Documented By: Admin: 04/30/25 23:22 Dose: 999 mls/hr Documented By: BOB Sodium Chloride (Ns) 1,000 mls @ 999 mls/hr IV .Q1H1M ONE Stop: 05/01/25 00:38 Last Infusion: 05/01/25 03:32 Dose: Infused Documented By: Admin: 05/01/25 00:17 Dose: 999 mls/hr Documented By: BOB Ceftriaxone Sodium/Dextrose (Rocephin/D5w 1gm Iv Premix) 1 gm in 50 mls @ 100 mls/hr IV X1 ONE Stop: 05/01/25 00:50 Last Infusion: 05/01/25 01:37 Dose: Infused Documented By: Admin: 05/01/25 00:26 Dose: 100 mls/hr Documented By: BOB Lactated Ringer's (Lactated Ringers) 1,000 mls @ 250 mls/hr IV .Q4H ONE Stop: 05/01/25 07:15 Last Admin: 05/01/25 03:43 Dose: 250 mls/hr Documented By: HANG Ciprofloxacin/Dextrose (Cipro Ivpb) 400 mg in 200 mls @ 200 mls/hr IV X1 ONE Stop: 05/01/25 07:57 Last Admin: 05/01/25 07:30 Dose: 200 mls/hr Documented By: CACHORRO Ketorolac Tromethamine (Ketorolac Inj 30 Mg/Ml Vial) 30 mg IVP X1 ONE Stop: 05/01/25 03:41 Last Admin: 05/01/25 03:52 Dose: 30 mg Documented By: HANG Metoclopramide HCl (Metoclopramide Inj 5 Mg/Ml Vial 2 Ml) 10 mg IVP X1 ONE; Protocol Stop: 05/01/25 03:41 Last Admin: 05/01/25 03:52 Dose: 10 mg Documented By: HANG Morphine Sulfate (Morphine Sulf Inj 4 Mg/Ml Vial) 4 mg IVP X1 ONE Stop: 04/30/25 22:25 Last Admin: 04/30/25 23:21 Dose: 4 mg Documented By: BOB Morphine Sulfate (Morphine Sulf Inj 4 Mg/Ml Vial) 4 mg IVP X1 ONE Stop: 05/01/25 06:29 Last Admin: 05/01/25 06:40 Dose: 4 mg Documented By: BOB Ondansetron HCl (Ondansetron Inj 2 Mg/Ml Inj 2 Ml) 4 mg IVP X1 ONE; Protocol Stop: 04/30/25 22:25 Last Admin: 04/30/25 23:22 Dose: 4 mg Documented By: BOB Ondansetron HCl (Ondansetron Inj 2 Mg/Ml Inj 2 Ml) 4 mg IVP X1 ONE; Protocol Stop: 05/01/25 03:41 Last Admin: 05/01/25 03:51 Dose: 4 mg Documented By: HANG Ondansetron HCl (Ondansetron Inj 2 Mg/Ml Inj 2 Ml) 4 mg IVP X1 ONE; Protocol Stop: 05/01/25 06:29 Last Admin: 05/01/25 06:41 Dose: 4 mg Documented By: BOB Consultations/Discussions re: Management Consult #1: Date/time: 05/01/25 7:00 am Physician, specialty, service, details: 0658: Spoke with urology, Dr. Morelos, who recommends patient for admission in addition to IV abx. Consult #2: Date/time: 05/01/25 7:28 am Physician, specialty, service, details: 0727: Spoke with hospitalist team who will review case for admission. 0758: Hospitalist team accepts patient for admission. Diagnosis Diagnoses ruled out and/or further discussions: Pyleonephritis, stent malfunction, cystitis
[2025-05-01] MEDS: CIPROFLOXACIN/D5w 400 MG IVPB 400 MG/200 ML BAG 200 MG IV (07:30)
[2025-05-01] MEDS: RINGERS LACTATED 1000 ML 1,000 ML 75 ML IV (09:25)
[2025-05-01] MEDS: PIPER/TAZO 3.375 GM PREMIX 3.375 GM/50 ML BAG IV ×2 (09:27→22:24)
--- NOTE | 2025-05-01 09:48 | ESHP_ITS ---
<Statement entered by Matti German MD - 05/01/25 17:15> 35-year-old male with past medical history of spina bifida, AREA CAPTAIN shunt, staghorn renal calculi with recurrent UTIs s/p stone ablation and ureteral stents was admitted to the hospital due to pyelonephritis. Patient had been complaining of flank pain for the past 2 days, but denied having any frequency or urgency and denied having any fevers or chills. Patient is known to the hospital and was previously in our hospital on 03/2025 where he underwent ablation of the stones and stent placement. Urology was consulted by the ED and stated that he would see the patient to start IV antibiotics. Patient was placed on IV Zosyn given past sensitivities. Patient also had an TRINI likely postrenal given that his creatinine went up to 2.5. As per urology he will not need any surgical procedure at this time to continue IV antibiotics. Patient's blood pressure was also chronically elevated even with clonidine and amlodipine given in the ED this could be likely secondary to his pain. In summary #Hx of staghorn calculi s/p renal stone ablation and stents #Pyelonephritis--> IV Zosyn and urology consulted, appreciate commendations #TRINI--> IV fluids will continue to monitor #Hypertensive urgency---> continue amlodipine 10 daily and clonidine 0.5 mg twice daily, hold losartan in the setting of TRINI pain management as well on board. I have reviewed the note and agree with the resident's assessment & plan with exceptions as below. I have personally reviewed labs, imaging, home meds/prior records, examined the patient, formulated and discussed management plan with my attending Matti German PGY2 Disclaimer: Even though this this note was dictated by speech recognition and even though it was carefully revised there may still be minor errors in hvac design engineer due to voice recognition software. Documentation for date of: 05/01/25 HPI History of Present Illness Chief complaint: Pyelonephritis History of present illness: Patient is a 35-year-old wheelchair-bound male with past medical history of spina bifida, AREA CAPTAIN shunt, staghorn renal calculi with recurrent UTIs and ureteral stents. Per the past 2 days patient has been experiencing flank pain, no frequency or urgency; of note, he follows with Dr. Morelos who has placed ureteral stents bilaterally. Patient denies fever or chills, but endorses shortness of breath occasionally. ED course: Patient arrived in the ED with bilateral flank and back pain more pronounced on the left with nausea vomiting and dysuria for 2 days. He follows with Dr. Morelos, and had his ureteral stents replaced recently. Patient given clonidine, Zofran, amlodipine, morphine IV and 1 dose of Cipro IV. ED then spoke with Dr. Morelos, who recommended IV antibiotics and inpatient admission. PMH: Spina bifida, recurrent UTIs, staghorn renal calculi PSH: Ureteral stents, AREA CAPTAIN shunt Social history: Endorses marijuana use no other substances used Allergies: Latex, hydrocodone Review of Systems Review of Systems Narrative Review of Systems: General: Denies fevers or chills HEENT: Denies congestion or sore throat Heart: Denies chest pain or palpitations Lungs: Denies cough; endorses shortness of breath Abdomen: Denies diarrhea, nausea or vomiting, constipation, BRBPR, melena; bilateral flank pain radiating to back Genitourinary: Denies frequency, urgency, dysuria, hematuria Musculoskeletal: Denies joint pain, denies muscular pain Neurology: Denies numbness, tingling ROS otherwise negative except what is mentioned above. Exam Vital Signs Temp Pulse Resp BP Pulse Ox O2 Del Method 97.8 F 106 H 18 181/130 H 100 Room Air 05/01/25 06:21 05/01/25 06:40 05/01/25 06:21 05/01/25 06:40 05/01/25 06:21 05/01/25 06:21 Narrative Exam General: A/O x3, no acute distress, well-nourished, well-developed Eyes: PERRL, EOMI. Anicteric, vision grossly intact. Ears: No ear pain, no ear discharge, Hearing grossly intact. Nose: No nasal discharge. Mouth/Throat: Moist mucous membranes, no redness, no lesions. Neck: Neck supple, non-tender, no cervical lymphadenopathy. Lungs: Clear ELBA to auscultation and percussion, No accessory muscle use. Cardio: Normal S1/S2, regular rhythm, no murmurs, no JVD or carotid bruits. Abdomen: Soft, no palpable masses, peristalsis present, some guarding, bilateral flank pain on palpation Extremities: Symmetrical, no significant deformities, no peripheral edema , non-tender, peripheral pulses presents. Skin: No rashes, no lesions, warm to touch. Neuro: No focal neurological deficits. Psych: Cooperative, appropriate mood and effect. Results: Labs 05/02/25 11:40 05/02/25 04:40 Labs: Short CBC 04/30/25 Range/Units 22:50 WBC 10.3 (3.8-10.6) Thou/mm3 Hgb 8.3 L (13.5-16.0) g/dL Hct 27.4 L (41.0-53.0) % Plt Count 311 D (140-440) Thou/mm3 BMP 04/30/25 22:50 Sodium 139 Potassium 3.6 Chloride 104 Carbon Dioxide 23.3 BUN 35 H Creatinine 2.5 H Glucose 100 Calcium 9.1 Liver Function 04/30/25 Range/Units 22:50 Total Bilirubin 0.5 (0.3-1.2) mg/dL AST 12 (0-34) U/L ALT 11 (10-49) U/L Alkaline Phosphatase 102 (46-116) U/L Albumin 4.3 (3.5-5.0) gm/dL Urine 04/30/25 Range/Units 23:50 Urine Color [place] (Lt Yel-Yel) Urine Clarity Cloudy A (Clear/Hazy) Urine pH 8.0 H (5.0-7.0) Ur Specific [place] 1.010 (1.001-1.035) Urine Protein 3+ A (Neg - Trace) Urine Glucose (UA) Negative (Negative) Quality Measures Quality Measures none Medications Home Medications and Allergies Home Medications ?Medication ?Instructions ?Recorded ?Confirmed ?Type amlodipine 10 mg tablet 10 mg PO DAILY 06/06/2403/18 History clonidine HCl 0.1 mg tablet 0.1 mg PO BID 01/14/2503/18 History losartan 25 mg tablet 25 mg PO DAILY 01/14/2503/18 History ondansetron 4 mg disintegrating 4 mg PO Q6H PRN nausea and vomiting 04/03/25 05/01/25 History tablet Allergies Allergy/AdvReac Type Severity Reaction Status Date / Time hydrocodone (From [place]) Allergy Severe ITCH Verified 04/02/25 18:22 latex Allergy Severe RASH Verified 04/02/25 18:21 Visit Medications Acetaminophen (Acetaminophen 325 Mg Tablet) 650 mg PO Q6H PRN PRN Reason: Fever >100.4 Stop: 05/31/25 08:09 Acetaminophen (Acetaminophen 325 Mg Tablet) 650 mg PO Q6H PRN PRN Reason: PAIN SCALE 1-3 (mild Stop: 05/31/25 08:09 Hydromorphone HCl (Hydromorphone Inj 2 Mg/Ml Vial) 1 mg IVP Q4HR PRN PRN Reason: PAIN SCALE 7-10 (Severe Stop: 05/06/25 09:04 Last Admin: 05/01/25 09:27 Dose: 1 mg Lactated Ringer's (Lactated Ringers) 1,000 mls @ 75 mls/hr IV .[id number] ARACELY Stop: 05/01/25 21:34 Last Admin: 05/01/25 09:25 Dose: 75 mls/hr Piperacillin/Tazobactam/Dextrose (Zosyn) 3.375 gm in 50 mls @ 12.5 mls/hr IV Q8HR ARACELY; Protocol Stop: 05/08/25 09:14 Last Admin: 05/01/25 09:27 Dose: 12.5 mls/hr Discontinued Medications Amlodipine Besylate (Amlodipine Besylate 5 Mg Tablet) 10 mg PO X1 ONE Stop: 05/01/25 06:29 Last Admin: 05/01/25 06:40 Dose: 10 mg Clonidine (Clonidine Hcl 0.1 Mg Tablet) 0.2 mg PO X1 ONE Stop: 05/01/25 06:29 Last Admin: 05/01/25 06:40 Dose: 0.2 mg Hydromorphone HCl (Hydromorphone Inj 2 Mg/Ml Vial) 2 mg IVP X1 ONE Stop: 05/01/25 00:22 Last Admin: 05/01/25 00:26 Dose: 2 mg Hydromorphone HCl (Hydromorphone Inj 2 Mg/Ml Vial) 1 mg IVP X1 ONE Stop: 05/01/25 03:41 Last Admin: 05/01/25 03:52 Dose: 1 mg Sodium Chloride (Ns) 1,000 mls @ 999 mls/hr IV .Q1H1M ONE Stop: 04/30/25 23:26 Last Infusion: 05/01/25 00:32 Dose: Infused Sodium Chloride (Ns) 1,000 mls @ 999 mls/hr IV .Q1H1M ONE Stop: 05/01/25 00:38 Last Infusion: 05/01/25 03:32 Dose: Infused Ceftriaxone Sodium/Dextrose (Rocephin/D5w 1gm Iv Premix) 1 gm in 50 mls @ 100 mls/hr IV X1 ONE Stop: 05/01/25 00:50 Last Infusion: 05/01/25 01:37 Dose: Infused Lactated Ringer's (Lactated Ringers) 1,000 mls @ 250 mls/hr IV .Q4H ONE Stop: 05/01/25 07:15 Last Infusion: 05/01/25 09:06 Dose: Infused Ciprofloxacin/Dextrose (Cipro Ivpb) 400 mg in 200 mls @ 200 mls/hr IV X1 ONE Stop: 05/01/25 07:57 Last Infusion: 05/01/25 08:30 Dose: Infused Ciprofloxacin/Dextrose (Cipro Ivpb) 200 mg in 100 mls @ 100 mls/hr IV Q12HR ARACELY Stop: 05/09/25 08:59 Ciprofloxacin/Dextrose (Cipro Ivpb) 200 mg in 100 mls @ 100 mls/hr IV Q12HR ARACELY Stop: 05/08/25 20:59 Ketorolac Tromethamine (Ketorolac Inj 30 Mg/Ml Vial) 30 mg IVP X1 ONE Stop: 05/01/25 03:41 Last Admin: 05/01/25 03:52 Dose: 30 mg Metoclopramide HCl (Metoclopramide Inj 5 Mg/Ml Vial 2 Ml) 10 mg IVP X1 ONE; Protocol Stop: 05/01/25 03:41 Last Admin: 05/01/25 03:52 Dose: 10 mg Morphine Sulfate (Morphine Sulf Inj 4 Mg/Ml Vial) 4 mg IVP X1 ONE Stop: 04/30/25 22:25 Last Admin: 04/30/25 23:21 Dose: 4 mg Morphine Sulfate (Morphine Sulf Inj 4 Mg/Ml Vial) 4 mg IVP X1 ONE Stop: 05/01/25 06:29 Last Admin: 05/01/25 06:40 Dose: 4 mg Ondansetron HCl (Ondansetron Inj 2 Mg/Ml Inj 2 Ml) 4 mg IVP X1 ONE; Protocol Stop: 04/30/25 22:25 Last Admin: 04/30/25 23:22 Dose: 4 mg Ondansetron HCl (Ondansetron Inj 2 Mg/Ml Inj 2 Ml) 4 mg IVP X1 ONE; Protocol Stop: 05/01/25 03:41 Last Admin: 05/01/25 03:51 Dose: 4 mg Ondansetron HCl (Ondansetron Inj 2 Mg/Ml Inj 2 Ml) 4 mg IVP X1 ONE; Protocol Stop: 05/01/25 06:29 Last Admin: 05/01/25 06:41 Dose: 4 mg Assessment & Plan Plan Patient is a 35-year-old wheelchair-bound male with past medical history of spina bifida, AREA CAPTAIN shunt, recurrent UTIs with ureteral stents presenting with bilateral flank pain and shortness of breath. #Acute pyelonephritis #UTI likely 2/2 to gram negative organisms #History of previous ablations and stents on previous admissions Patient symptoms (bilateral flank pain) and history (recurrent UTIs with recent ureteral hardware placement), as well as CT A/P (05/01/2025) confirm pyelonephritis. Plan: Pip-tazo IV for empiric treatment Urine cultures collected; awaiting results Urology consulted (Dr. Morelos)?thank you for recommendations; will not have surgical procedure Pain management on board #TRINI Patient baseline is 1.5-1.6; creatinine on 05/01/2025 is 2.5 Likely postrenal in setting of acute manipulation of ureters (stent placement) with bilateral hydronephrosis on CT A/P (05/01/25) Plan: As per pyelonephritis workup 1 L LR running #Hypertensive urgency BP was 181/130 on 05/01/2025 at 6:40 AM; this meets the criteria for hypertensive urgency. Less likely hypertensive emergency as only potential endorgan damage (TRINI) is better explained by pyelonephritis and hydronephrosis on CT abdomen pelvis. Plan: Patient restarted on home amlodipine 10 daily and clonidine 0.1 twice daily Monitor BP # Microcytic anemia Hgb in between 8 and 10 (MCV between 70 and 80) on previous admissions going back to 2023. Differential includes anemia of chronic disease (recurrent UTI), iron deficiency anemia (iron level 24 on 06/14/2024, ferritin 2 on 12/27/2023). Hgb on this admission 8.3 (05/01/2025) Plan: Will trend as part of CBCs #AREA CAPTAIN shunt #Spina bifida Follow-up outpatient Disposition: DVT prophylaxis: Not until after potential procedure by Dr. Morelos GI prophylaxis: N/A Diet: NPO Lines: PIV CODE STATUS: Full code This case was discussed with my attending physician, Dr. Roman, and senior resident, Dr. Castano. All Estevez MD-PhD, PGY1 Attending Provider Attestation/Addendum I have discussed and was present for the essential components of the history, physical examination, diagnosis, and treatment plan with the resident. I agree with the patient's care as documented by the resident and amended herein by me. Felipe Roman, DO. Although this document has been carefully reviewed, there may still be some phonetic and other typographical errors. These errors are purely grammatical due to imperfections in the software program and should not be construed in any way to compromise the substance of the patient's medical care during this visit.
--- NOTE | 2025-05-01 13:27 | PC.CC ---
Pt is a 35 yo male who uses a wheelchair to ambulate. Pt states there are medi-vonnie issues with his account right now, which he states he has taken care of but is unsure if at this time his medi-vonnie is active. Pt reports he is his own decision maker but in the event he is unable to make his own decisions, his mother Yesenia Michael [phone] would be his surrogate decision maker. Pt states he does his own ADLs but does have a caregiver. Pt denies using O2. pt reports he is in the process of IHSS services. pt reports he resides in an apartment k. Pt has family support which is his mother. Pts plan is to d/c home once he is d/c from the hospital. PCP-Vandana Sears at [facility]- Urology, Dr. Jiménez Pharmacy: [facility] Decision Maker: Yesenia Alec, mother
--- NOTE | 2025-05-01 15:00 | PC.NURSE ---
Dr Castano called and does not want to treat bp at this time. pt will go to rm
--- NOTE | 2025-05-01 15:36 | PC.NURSE ---
Pt taken to rm 372 by inclined railway operator.
[2025-05-01] MEDS: HYDROmorphone INJ 2 MG/ML VIAL 0.5 MG IVP (16:27)
[2025-05-02] VITALS (15 sets, daily range): BP systolic 130–162; BP diastolic 95–112; PULSE 81–108; RESP 17–20; TEMP 36.4–37.1; O2SAT 96–100
[2025-05-02] MEDS: HYDROmorphone INJ 2 MG/ML VIAL 1 MG IVP ×5 (03:49→20:32)
[2025-05-02] MEDS: PIPER/TAZO 3.375 GM PREMIX 3.375 GM/50 ML BAG IV ×3 (05:02→21:53)
[2025-05-02 05:51] LABS: Basophils # (Auto) 0.0 Thou/mm3 (0.0-0.2); Basophils % (Auto) 0 % (0-2.5); Eosinophils # (Auto) 0.1 Thou/mm3 (0.0-0.5); Eosinophils % (Auto) 1 % (0-10); Hematocrit 22.9 % (41.0-53.0); Immature Granulocytes Auto 0.05 Thou/mm3 (0.00-0.00); Lymphocytes # (Auto) 0.4 Thou/mm3 (1.0-4.8); Lymphocytes % (Auto) 4 % (10-50); Mean Corpuscular HGB Conc 30.6 g/dl (31.0-37.0); Mean Corpuscular Hemoglobin 23.3 pg (25.0-35.0); Mean Corpuscular Volume 76 fL (80-100); Monocytes # (Auto) 0.5 Thou/mm3 (0.0-0.8); Monocytes % (Auto) 5 % (0-12); Neutrophils # (Auto) 8.8 Thou/mm3 (1.8-7.7); Neutrophils % (Auto) 90 % (37-80); Nucleated Red Blood Cell # 0.00 Thou/mm3 (0.00-0.00); Nucleated Red Blood Cell % 0 /100 WBC (0); Platelet Count 251 Thou/mm3 (140-440); RDW Standard Deviation 50.4 fL (35.1-43.9); Red Blood Count 3.01 Miln/mm3 (4.50-5.90); White Blood Count 9.8 Thou/mm3 (3.8-10.6)
[2025-05-02 06:11] LABS: Hemoglobin 7.0 g/dL (13.5-16.0)
[2025-05-02 06:24] LABS: Alanine Aminotransferase 13 U/L (10-49); Albumin, Serum 3.9 gm/dL (3.5-5.0); Albumin/Globulin Ratio 1.8 (1.2-2.2); Alkaline Phosphatase 93 U/L (46-116); Anion Gap 12 (7-16); Aspartate Amino Transferase 21 U/L (0-34); BUN/Creatinine Ratio 14 Ratio (12-20); Bilirubin,Total 0.9 mg/dL (0.3-1.2); Blood Urea Nitrogen 28 mg/dL (9-23); Calcium 8.4 mg/dL (8.3-10.6); Calcium (Corrected) 8.5 mg/dL (8.5-10.1); Carbon Dioxide 19.0 mMol/L (20.0-31.0); Chloride 103 mMol/L (98-107); Creatinine (Component) 2.0 mg/dL (0.6-1.3); Estimated Creatinine Clearance 31.4 mL/min (>60); Globulin 2.2 gm/dL (2.3-3.5); Glucose 92 mg/dL (74-106); Magnesium 1.8 mg/dL (1.6-2.6); Osmolality,Calculated 273 (275-295); Phosphorous 3.1 mg/dL (2.4-5.1); Potassium 3.2 mMol/L (3.4-5.1); Sodium 134 mMol/L (136-145); Total Protein 6.1 gm/dL (5.7-8.2); eGFR 44 See Note
[2025-05-02] MEDS: Magnesium Sulfate 2 GM Ivpb 2 GM/50 ML BAG IV (09:23)
--- NOTE | 2025-05-02 10:02 | ESPR_ITS ---
<Statement entered by Matti German MD - 05/02/25 20:34> Patient was seen and evaluated at bedside this morning. No acute overnight events. Hgb did drop to 6.8 therefore 1 unit of blood given. Patient had a RR due to dizziness this afternoon after getting dilaudid. At this time pupils were pinpoint and BG was 98. Juice was given and dilaudid was decreased to 0.5mg q6hrs from 1mg q4h. Pending cultures for possible DC in next 24-48 hrs. I have reviewed the note and agree with the resident's assessment & plan with exceptions as below. I have personally reviewed labs, imaging, home meds/prior records, examined the patient, formulated and discussed management plan with my attending Matti German PGY2 Disclaimer: Even though this this note was dictated by speech recognition and even though it was carefully revised there may still be minor errors in licensed embalmer due to voice recognition software. Documentation for date of: 05/02/25 Subjective Subjective Interval history: Patient was seen and examined at bedside today with no acute events overnight; he feels better, though still has bilateral flank pain. Patient hemoglobin dropped to 6.8 today; was given 1 unit PRBCs, and GI was consulted. Urology stated no procedure, just IV antibiotics. Exam Vital Signs Temp Pulse Resp BP Pulse Ox O2 Del Method 98.8 F 99 19 154/107 H 99 Room Air 05/02/25 08:00 05/02/25 08:05 05/02/25 08:00 05/02/25 08:05 05/02/25 08:00 05/02/25 08:00 Narrative Exam General: A/O x3, no acute distress, well-nourished, well-developed Eyes: PERRL, EOMI. Anicteric, vision grossly intact. Ears: No ear pain, no ear discharge, Hearing grossly intact. Nose: No nasal discharge. Mouth/Throat: Moist mucous membranes, no redness, no lesions. Neck: Neck supple, non-tender, no cervical lymphadenopathy. Lungs: Clear ELBA to auscultation and percussion, No accessory muscle use. Cardio: Normal S1/S2, regular rhythm, no murmurs, no JVD or carotid bruits. Abdomen: Soft, no palpable masses, peristalsis present, some guarding, bilateral flank pain on palpation Extremities: Symmetrical, no significant deformities, no peripheral edema , non-tender, peripheral pulses presents. Skin: No rashes, no lesions, warm to touch. Neuro: No focal neurological deficits. Wheelchair-bound secondary to spina bifida. Psych: Cooperative, appropriate mood and effect. Objective Labs 05/02/25 11:40 05/02/25 04:40 Labs: Laboratory Results - last 24 hr 05/02/25 05/02/25 04:40 07:05 WBC 9.8 RBC 3.01 L Hgb 7.0 L Hct 22.9 L MCV 76 L MCH 23.3 L MCHC 30.6 L RDW Std Deviation 50.4 H Plt Count 251 D Neut % (Auto) 90 H Lymph % (Auto) 4 L Wolfe % (Auto) 5 Eos % (Auto) 1 Baso % (Auto) 0 Neut # (Auto) 8.8 H Lymph # (Auto) 0.4 L Wolfe # (Auto) 0.5 Eos # (Auto) 0.1 Baso # (Auto) 0.0 Immature Gran # (Auto) 0.05 H Absolute Nucleated RBC 0.00 Immature Gran % 1 H Nucleated RBC % 0 Sodium 134 L Potassium 3.2 L Chloride 103 Carbon Dioxide 19.0 L Anion Gap 12 BUN 28 H Creatinine 2.0 H D Estim Creat Clear Calc 31.4 L eGFR 44 L BUN/Creatinine Ratio 14 Glucose 92 Calculated Osmolality 273 L Calcium 8.4 Corrected Calcium 8.5 Phosphorus 3.1 Magnesium 1.8 Total Bilirubin 0.9 AST 21 ALT 13 Alkaline Phosphatase 93 Total Protein 6.1 Albumin 3.9 Globulin 2.2 L Albumin/Globulin Ratio 1.8 Blood Type A Positive Antibody Screen NEGATIVE Crossmatch See Detail Blood Bank Wristband ID Yes Quality Measures Quality Measures none Assessment & Plan Assessment Current Active Medications: Generic Name Dose Route Start Last Admin Trade Name Freq PRN Reason Stop Dose Admin Acetaminophen 650 mg 05/01/25 08:10 Acetaminophen 325 Mg Tablet PO 05/31/25 08:09 Q6H PRN Fever >100.4 Acetaminophen 650 mg 05/01/25 08:10 Acetaminophen 325 Mg Tablet PO 05/31/25 08:09 Q6H PRN PAIN SCALE 1-3 (mild Amlodipine Besylate 10 mg 05/02/25 09:00 05/02/25 08:05 Amlodipine Besylate 5 Mg Tablet PO 06/01/25 08:59 10 mg DAILY ARACELY Administration Clonidine 0.1 mg 05/01/25 21:00 05/02/25 08:05 Clonidine Hcl 0.1 Mg Tablet PO 05/31/25 20:59 0.1 mg BID ARACELY Administration Hydromorphone HCl 1 mg 05/01/25 09:05 05/02/25 08:05 Hydromorphone Inj 2 Mg/Ml Vial IVP 05/06/25 09:04 1 mg Q4HR PRN Administration PAIN SCALE 7-10 (Severe Piperacillin/Tazobactam/Dextrose 3.375 gm in 50 mls @ 12.5 mls/hr 05/01/25 22:00 05/02/25 05:02 Zosyn IV 05/08/25 21:59 12.5 mls/hr Q8HR ARACELY Administration Protocol Magnesium Sulfate 2 gm in 50 mls @ 25 mls/hr 05/02/25 08:35 05/02/25 09:23 Magnesium Sulfate Ivpb IV 05/02/25 10:34 25 mls/hr X1 ONE Administration Ondansetron HCl 4 mg 05/01/25 10:21 Ondansetron Inj 2 Mg/Ml Inj 2 Ml IVP 05/31/25 10:20 Q8HR PRN NAUSEA OR VOMITING Protocol Pantoprazole Sodium 40 mg 05/02/25 09:15 05/02/25 09:31 Pantoprazole Inj 40 Mg Vial IVP 06/01/25 09:14 40 mg BID ARACELY Administration Plan Patient is a 35-year-old wheelchair-bound male with past medical history of spina bifida, 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 #Acute pyelonephritis #Recurrent UTI #History of previous ablations and stents on previous admissions Patient symptoms (bilateral flank pain) and history (recurrent UTIs with recent ureteral hardware placement), as well as CT A/P (05/01/2025) confirm pyelonephritis. UA (04-30-25) shows 2+ bacteria and WBCs of 128. Plan: Pip-tazo IV for empiric treatment Urine cultures collected; gram-negative asaf found; awaiting full report Urology consulted (Dr. Morelos)?thank you for recommendations; will not have surgical procedure, just IV antibiotics Pain management on board # Microcytic anemia Hgb in between 8 and 10 (MCV between 70 and 80) on previous admissions going back to 2023. Differential includes anemia of chronic disease (recurrent UTI), iron deficiency anemia (iron level 24 on 06/14/2024, ferritin 2 on 12/27/2023). Hgb on this admission 8.3 (05/01/2025); Hgb on 05/02/25 6.8 Plan: 1 unit pRBCs given 05-02-25 Will trend as part of CBCs GI consulted?appreciate recs #TRINI Patient baseline is 1.5-1.6; creatinine on 05/01/2025 is 2.5, 05/02/25 is 2.0 Likely postrenal in setting of acute manipulation of ureters (stent placement) with bilateral hydronephrosis on CT A/P (05/01/25) Plan: As per pyelonephritis workup #Hypertensive urgency BP was 181/130 on 05/01/2025 at 6:40 AM; this meets the criteria for hypertensive urgency. Less likely hypertensive emergency as only potential end organ damage (TRINI) is better explained by pyelonephritis and hydronephrosis on CT abdomen pelvis. 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 Roman, and senior resident, Dr. Castano. All Estevez MD-PhD, PGY1 Attending Provider Attestation/Addendum I have discussed and was present for the essential components of the history, physical examination, diagnosis, and treatment plan with the resident. I agree with the patient's care as documented by the resident and amended herein by me. Felipe Roman DO. Although this document has been carefully reviewed, there may still be some phonetic and other typographical errors. These errors are purely grammatical due to imperfections in the software program and should not be construed in any way to compromise the substance of the patient's medical care during this visit. Patient seen and evaluated this AM. No acute events overnight, vital signs stable, patient afebrile. Significant labs include a hemoglobin of 7 which the patient does run low, testing 3.2 which would be repleted, bicarb 19, BUN 28 and a downtrending creatinine of 2. Urine cultures demonstrating GNR, speciation pending, blood cultures which were repeated are still pending as well. Will continue the patient on Zosyn for now considering history of, complicated UTI with MDR Proteus. Will tailor antibiotics once speciation of recent cultures have resulted. Will continue monitor closely while here.
[2025-05-02 10:18] LABS: Immature Reticulocyte Fraction 16.1 % (2.3-13.4); Reticulocyte % (Auto) 2.0 % (0.5-1.5); Reticulocyte Absolute Auto 61.5 Biln/L (25.0-75.0); Reticulocyte Hgb Content 19.7 pg (28.0-35.0)
[2025-05-02 10:19] LABS: Ferritin 6 ng/mL (10.5-307.3); Iron 9 mcg/dL (65-175); Percent Iron Saturation 2 % (20-55); Total Iron Binding Capacity 364 mcg/dL (250-425); Unsaturated Iron Binding 355 (225-295)
[2025-05-02 12:17] LABS: Hematocrit 22.8 % (41.0-53.0)
--- NOTE | 2025-05-02 12:17 | ESCONSULT_ITS ---
RE: JOSE MELGAR : 1990 DATE OF CONSULTATION: 05/01/2025 CHIEF COMPLAINT: This is a 35-year-old gentleman who is wheelchair-bound. He came to the emergency room with a history of flank pain with nausea, vomiting and low-grade temperature. COMORBID CONDITIONS: 1. Spina bifida. The patient is wheelchair bound. 2. 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 3. Hypertension. 4. Bilateral staghorn calculi, status post placement of bilateral ureteral stents. HISTORY OF PRESENT ILLNESS: The patient had previous admissions in the hospital for pyelonephritis and chronic UTI. For his staghorn calculi, the patient is not a candidate for PCNL. VARIOUS MEDICATIONS: 1. He is on amlodipine 10 mg p.o. daily. 2. Clonidine hydrochloride 0.1 mg b.i.d. 3. Losartan 25 mg daily. Past medical history, family history, review of the system, personal history: Please refer to the patient's history form dated 04/30/2025. This is in HPI, in EMR. PHYSICAL EXAMINATION: General: Condition is satisfactory. Orientation x3. HEENT: Normocephalic, atraumatic. Eyes: No anemia or jaundice. Neck: Supple. Trachea is central. Thyroid is not enlarged. Extremities: Revealed no edema, cyanosis, or clubbing. Vital Signs: Stable. They are in HPI, in EMR. Temperature in the ER is 99 Fahrenheit. Pulse is 109. Respiratory rate is 20. Blood pressure 175/92. Pulse oximetry 99% at room air. Abdomen: Soft and nontender. Bilateral flank tenderness. VARIOUS LABORATORIES: Current labs are not available. CAT scan of the abdomen and pelvis was done and this revealed satisfactory placement of bilateral ureteral stent. Urine culture report is not available. RECOMMENDATIONS: 1. Urine culture sensitivity. 2. Treat him with antibiotics according to the culture sensitivity. At this time, he does not need any replacement of the stent and followup appointment in urology office is given for replacement of the stent in three months' time. DT: 11:56:45 TT: 12:15:00 Ref: [id number] - TID: [id number]
[2025-05-02 12:24] LABS: Hemoglobin 6.8 g/dL (13.5-16.0)
[2025-05-02] MEDS: LOSARTAN POTASSIUM 25 MG TABLET PO (16:18)
--- NOTE | 2025-05-02 17:03 | PD.RESCONSUL ---
HPI Data of Consult Requesting Physician: Arun Roman DO Admitting Provider: Arun Roman DO Attending Provider: Arun Roman DO Primary Care Provider: Vandana Sears NP Consult Narrative Reason for consult: Acute normocytic anemia History of present illness: Mr. Dixon is a 35 year old gentleman with a hx of HTN, spina bifida (wheelchair bound), microcytic anemia (baseline ~10), and hx of recurrent UTI associated with staghorn stones (Urology consuluted, only iv abx recommended), he presented to the ED due to suprapubic and bilateral flank pain associated with dysuria, who had acute drop in Hgb to 6.8 from 8.3 on admission. Given 1 unit of PRBC. pending post transfusion H and H. No melena, no hematemesis, no hematuria. He is net positive 3 L. No NSAID use, no blood thinners. On admission in 11/2024, pt had acute hgb drop, recieved 2 units prbc, had mild transfusion reaction, treated with benadryl, and underwent colonoscopy (internal hemrrhoids and normal colon to the cecum), and EGD with esophagitis and nonbleeding errosions at the GE junction, hgb stabilized post transfusion and pt was discharged. Patient had rapid response called this eveneing at 1700 following a dose of dilaudid for mild chest pain, see event note for more information, juice was given. cc:: cc: Arun Roman DO Review of Systems Review of Systems Narrative Review of Systems: as per hpi Exam Vital Signs Temp Pulse Resp BP Pulse Ox O2 Del Method 97.7 F 92 18 130/98 H 99 Room Air 05/02/25 16:00 05/02/25 16:18 05/02/25 16:00 05/02/25 16:18 05/02/25 16:00 05/02/25 16:00 Narrative Exam GENERAL: no acute distress, AAO x3, comfortably laying in bed HEENT: Head AT/ NC. Mucous membranes moist. PERRL. NECK: Supple, no lymphadenopathy, no carotid bruits. CARDIOVASCULAR: RRR. systolic murmor at 4th intercostal space on the left, No pitting edema of bilateral LEs. RESPIRATORY: CTAB. No wheezing, rhonchi, crackles. Barrel chest GASTROINTESTINAL: Abdomen soft, suprapubic tendernss, and epigastric tenderness. Bowel sounds present, no rebound or guarding MUSCULOSKELETAL:? BLE atrophy, NEUROLOGICAL: CN II-XII grossly intact. No focal deficits. no sensation and no motor function of bilateral lower extremities (pt is wheelchair bound) PSYCHIATRIC: Awake and alert, not agitated, normal mood and affect. SKIN: No obvious rashes, no jaundice, normal turgor. Results Labs 05/02/25 19:44 05/02/25 04:40 Labs: Short CBC 05/02/25 05/02/25 Range/Units 04:40 11:40 WBC 9.8 (3.8-10.6) Thou/mm3 Hgb 7.0 L 6.8 L* (13.5-16.0) g/dL Hct 22.9 L 22.8 L (41.0-53.0) % Plt Count 251 D (140-440) Thou/mm3 BMP 05/02/25 04:40 Sodium 134 L Potassium 3.2 L Chloride 103 Carbon Dioxide 19.0 L BUN 28 H Creatinine 2.0 H D Glucose 92 Calcium 8.4 Liver Function 05/02/25 Range/Units 04:40 Total Bilirubin 0.9 (0.3-1.2) mg/dL AST 21 (0-34) U/L ALT 13 (10-49) U/L Alkaline Phosphatase 93 (46-116) U/L Albumin 3.9 (3.5-5.0) gm/dL Quality Measures Quality Measures VTE prophylaxis Medications Home Medications and Allergies Home Medications ?Medication ?Instructions ?Recorded ?Confirmed ?Type amlodipine 10 mg tablet 10 mg PO DAILY 06/06/24 05/01/25 History clonidine HCl 0.1 mg tablet 0.1 mg PO BID 01/14/25 05/01/25 History losartan 25 mg tablet 25 mg PO DAILY 01/14/25 05/01/25 History ondansetron 4 mg disintegrating 4 mg PO Q6H PRN nausea and vomiting 04/03/25 05/01/25 History tablet Allergies Allergy/AdvReac Type Severity Reaction Status Date / Time hydrocodone (From [place]) Allergy Severe ITCH Verified 04/02/25 18:22 latex Allergy Severe RASH Verified 04/02/25 18:21 Visit Medications Acetaminophen (Acetaminophen 325 Mg Tablet) 650 mg PO Q6H PRN PRN Reason: Fever >100.4 Stop: 05/31/25 08:09 Acetaminophen (Acetaminophen 325 Mg Tablet) 650 mg PO Q6H PRN PRN Reason: PAIN SCALE 1-3 (mild Stop: 05/31/25 08:09 Amlodipine Besylate (Amlodipine Besylate 5 Mg Tablet) 10 mg PO DAILY [facility] Stop: 06/01/25 08:59 Last Admin: 05/02/25 08:05 Dose: 10 mg Clonidine (Clonidine Hcl 0.1 Mg Tablet) 0.1 mg PO BID ARACELY Stop: 05/31/25 20:59 Last Admin: 05/02/25 08:05 Dose: 0.1 mg Hydromorphone HCl (Hydromorphone Inj 2 Mg/Ml Vial) 1 mg IVP Q4HR PRN PRN Reason: PAIN SCALE 7-10 (Severe Stop: 05/06/25 09:04 Last Admin: 05/02/25 16:17 Dose: 1 mg Piperacillin/Tazobactam/Dextrose (Zosyn) 3.375 gm in 50 mls @ 12.5 mls/hr IV Q8HR ARACELY; Protocol Stop: 05/08/25 21:59 Last Admin: 05/02/25 14:23 Dose: 12.5 mls/hr Losartan Potassium (Losartan Potassium 25 Mg Tablet) 25 mg PO QDAY [facility] Stop: 06/01/25 14:44 Last Admin: 05/02/25 16:18 Dose: 25 mg Ondansetron HCl (Ondansetron Inj 2 Mg/Ml Inj 2 Ml) 4 mg IVP Q8HR PRN; Protocol PRN Reason: NAUSEA OR VOMITING Stop: 05/31/25 10:20 Pantoprazole Sodium (Pantoprazole Inj 40 Mg Vial) 40 mg IVP BID [facility] Stop: 06/01/25 09:14 Last Admin: 05/02/25 09:31 Dose: 40 mg Discontinued Medications Amlodipine Besylate (Amlodipine Besylate 5 Mg Tablet) 10 mg PO X1 ONE Stop: 05/01/25 06:29 Last Admin: 05/01/25 06:40 Dose: 10 mg Clonidine (Clonidine Hcl 0.1 Mg Tablet) 0.2 mg PO X1 ONE Stop: 05/01/25 06:29 Last Admin: 05/01/25 06:40 Dose: 0.2 mg Hydromorphone HCl (Hydromorphone Inj 2 Mg/Ml Vial) 2 mg IVP X1 ONE Stop: 05/01/25 00:22 Last Admin: 05/01/25 00:26 Dose: 2 mg Hydromorphone HCl (Hydromorphone Inj 2 Mg/Ml Vial) 1 mg IVP X1 ONE Stop: 05/01/25 03:41 Last Admin: 05/01/25 03:52 Dose: 1 mg Hydromorphone HCl (Hydromorphone Inj 2 Mg/Ml Vial) 0.5 mg IVP X1 ONE Stop: 05/01/25 16:02 Last Admin: 05/01/25 16:27 Dose: 0.5 mg Sodium Chloride (Ns) 1,000 mls @ 999 mls/hr IV .Q1H1M ONE Stop: 04/30/25 23:26 Last Infusion: 05/01/25 00:32 Dose: Infused Sodium Chloride (Ns) 1,000 mls @ 999 mls/hr IV .Q1H1M ONE Stop: 05/01/25 00:38 Last Infusion: 05/01/25 03:32 Dose: Infused Ceftriaxone Sodium/Dextrose (Rocephin/D5w 1gm Iv Premix) 1 gm in 50 mls @ 100 mls/hr IV X1 ONE Stop: 05/01/25 00:50 Last Infusion: 05/01/25 01:37 Dose: Infused Lactated Ringer's (Lactated Ringers) 1,000 mls @ 250 mls/hr IV .Q4H ONE Stop: 05/01/25 07:15 Last Infusion: 05/01/25 09:06 Dose: Infused Ciprofloxacin/Dextrose (Cipro Ivpb) 400 mg in 200 mls @ 200 mls/hr IV X1 ONE Stop: 05/01/25 07:57 Last Infusion: 05/01/25 08:30 Dose: Infused Lactated Ringer's (Lactated Ringers) 1,000 mls @ 75 mls/hr IV .[id number] [facility] Stop: 05/01/25 21:34 Last Admin: 05/01/25 09:25 Dose: 75 mls/hr Ciprofloxacin/Dextrose (Cipro Ivpb) 200 mg in 100 mls @ 100 mls/hr IV Q12HR [facility] Stop: 05/09/25 08:59 Ciprofloxacin/Dextrose (Cipro Ivpb) 200 mg in 100 mls @ 100 mls/hr IV Q12HR ARACELY Stop: 05/08/25 20:59 Piperacillin/Tazobactam/Dextrose (Zosyn) 3.375 gm in 50 mls @ 12.5 mls/hr IV Q8HR ARACELY; Protocol Stop: 05/08/25 09:14 Last Admin: 05/01/25 16:03 Dose: Not Given Magnesium Sulfate (Magnesium Sulfate Ivpb) 2 gm in 50 mls @ 25 mls/hr IV X1 ONE Stop: 05/02/25 10:34 Last Admin: 05/02/25 09:23 Dose: 25 mls/hr Ketorolac Tromethamine (Ketorolac Inj 30 Mg/Ml Vial) 30 mg IVP X1 ONE Stop: 05/01/25 03:41 Last Admin: 05/01/25 03:52 Dose: 30 mg Metoclopramide HCl (Metoclopramide Inj 5 Mg/Ml Vial 2 Ml) 10 mg IVP X1 ONE; Protocol Stop: 05/01/25 03:41 Last Admin: 05/01/25 03:52 Dose: 10 mg Morphine Sulfate (Morphine Sulf Inj 4 Mg/Ml Vial) 4 mg IVP X1 ONE Stop: 04/30/25 22:25 Last Admin: 04/30/25 23:21 Dose: 4 mg Morphine Sulfate (Morphine Sulf Inj 4 Mg/Ml Vial) 4 mg IVP X1 ONE Stop: 05/01/25 06:29 Last Admin: 05/01/25 06:40 Dose: 4 mg Ondansetron HCl (Ondansetron Inj 2 Mg/Ml Inj 2 Ml) 4 mg IVP X1 ONE; Protocol Stop: 04/30/25 22:25 Last Admin: 04/30/25 23:22 Dose: 4 mg Ondansetron HCl (Ondansetron Inj 2 Mg/Ml Inj 2 Ml) 4 mg IVP X1 ONE; Protocol Stop: 05/01/25 03:41 Last Admin: 05/01/25 03:51 Dose: 4 mg Ondansetron HCl (Ondansetron Inj 2 Mg/Ml Inj 2 Ml) 4 mg IVP X1 ONE; Protocol Stop: 05/01/25 06:29 Last Admin: 05/01/25 06:41 Dose: 4 mg Potassium Chloride (Potassium Chloride 20 Meq Tabcr) 20 meq PO X1 ONE Stop: 05/02/25 08:36 Last Admin: 05/02/25 09:22 Dose: 20 meq Assessment & Plan Plan Mr. Dixon is a 35 year old gentleman with a hx of HTN, spina bifida (wheelchair bound), microcytic anemia (baseline ~10), and hx of recurrent UTI associated with staghorn stones, admitted for bilateral pyelonephritis, who then had acute drop in Hgb to 6.8 from 8.3 on admission. Given 1 unit of PRBC. pending post transfusion H and H. No melena, no hematemesis, no hematuria. NPO at midnight pending egd. Acute symptomatic microcytic anemia s/p 1 unit prbc Upper vs lower gi pending rule out Hgb on admission 8.3 with a baseline of ~10, pt recieved ~6L fluids during current admission and is net positive 3 L, consider possible dilutional effect. He had decline in hgb to 6.8, for which he recieve 1 unit prbc, He does not take iron supplementation at home. He denies chronic nsaid use, and no blood thinner medications. He was symptomatic, and endorses shortness of breath, weakness, and dizziness. On prior admission in 11/2024, pt had mild transfusion reaction to blood transfusion and was given benadryl. Last EGD in November 2024, performed by Dr. 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 Elijah Azar MD PGY1 Attending Provider Attestation/Addendum Patient personally examined laboratory data reviewed and imaging studies reviewed I agree with the assessment of the internal medicine resident Patient definitely has acute drop in hemoglobin hematocrit without any evidence of gross hematuria Consent obtained for fiberoptic esophagogastroduodenoscopy with possible biopsy possible therapeutic intervention under intravenous moderate sedation scheduled for tomorrow N.p.o. midnight tonight Thank you for the opportunity to participate in the care of this patient
[2025-05-02] MEDS: ONDANSETRON INJ 2 MG/ML INJ 2 ML 4 MG IVP (17:05)
--- NOTE | 2025-05-02 17:25 | PD.RESEVENT ---
Documentation for date of: 05/02/25 Event Note Event Note: Rapid response was called at 1712 due to patient feeling dizziness; on exam, patient said he felt dizzy and that it hurt to take a deep breath after dilaudid were given. On exam, patient had pinpoint pupils and BP of 155/117. Fingerstick glucose was 98; O2 saturation was 97%. Juice was given. Patient denied chest pain; lungs CTA. Symptoms likely due to rate of dilaudid administration; changed from 1mg q4h to 0.5mg q6h. This case was discussed with my attending physician, Dr. Roman, and senior resident, Dr. Castano. All Estevez MD-PhD, PGY1
--- NOTE | 2025-05-02 19:28 | PC.NURSE ---
Report received, pt pending post transfusion H/H, pain medication frequency changed s/p rapid. Call light within reach family at side.
--- NOTE | 2025-05-02 19:35 | PC.NURSE ---
Lab into draw pt.
[2025-05-02 19:52] LABS: Hematocrit 29.7 % (41.0-53.0); Hemoglobin 9.1 g/dL (13.5-16.0)
[2025-05-03] VITALS (17 sets, daily range): BP systolic 123–162; BP diastolic 91–104; PULSE 78–99; RESP 12–22; TEMP 36.4–37.1; O2SAT 95–100
[2025-05-03] MEDS: HYDROmorphone INJ 2 MG/ML VIAL 1 MG IVP ×2 (02:40→09:36)
[2025-05-03 05:51] LABS: Basophils # (Auto) 0.0 Thou/mm3 (0.0-0.2); Basophils % (Auto) 0 % (0-2.5); Eosinophils # (Auto) 0.1 Thou/mm3 (0.0-0.5); Eosinophils % (Auto) 1 % (0-10); Hematocrit 28.3 % (41.0-53.0); Immature Granulocytes Auto 0.01 Thou/mm3 (0.00-0.00); Lymphocytes # (Auto) 0.6 Thou/mm3 (1.0-4.8); Lymphocytes % (Auto) 7 % (10-50); Mean Corpuscular HGB Conc 31.1 g/dl (31.0-37.0); Mean Corpuscular Hemoglobin 24.2 pg (25.0-35.0); Mean Corpuscular Volume 78 fL (80-100); Monocytes # (Auto) 0.6 Thou/mm3 (0.0-0.8); Monocytes % (Auto) 7 % (0-12); Neutrophils # (Auto) 6.8 Thou/mm3 (1.8-7.7); Neutrophils % (Auto) 84 % (37-80); Nucleated Red Blood Cell # 0.00 Thou/mm3 (0.00-0.00); Nucleated Red Blood Cell % 0 /100 WBC (0); Platelet Count 233 Thou/mm3 (140-440); RDW Standard Deviation 53.4 fL (35.1-43.9); Red Blood Count 3.63 Miln/mm3 (4.50-5.90); White Blood Count 8.1 Thou/mm3 (3.8-10.6)
[2025-05-03 05:52] LABS: Hemoglobin 8.8 g/dL (13.5-16.0)
[2025-05-03] MEDS: PIPER/TAZO 3.375 GM PREMIX 3.375 GM/50 ML BAG IV ×3 (06:03→21:49)
[2025-05-03 06:15] LABS: Alanine Aminotransferase 19 U/L (10-49); Albumin, Serum 3.9 gm/dL (3.5-5.0); Albumin/Globulin Ratio 1.5 (1.2-2.2); Alkaline Phosphatase 121 U/L (46-116); Anion Gap 12 (7-16); Aspartate Amino Transferase 23 U/L (0-34); BUN/Creatinine Ratio 8 Ratio (12-20); Bilirubin,Total 1.2 mg/dL (0.3-1.2); Blood Urea Nitrogen 22 mg/dL (9-23); Calcium 8.5 mg/dL (8.3-10.6); Calcium (Corrected) 8.6 mg/dL (8.5-10.1); Carbon Dioxide 19.4 mMol/L (20.0-31.0); Chloride 105 mMol/L (98-107); Creatinine (Component) 2.6 mg/dL (0.6-1.3); Estimated Creatinine Clearance 24.2 mL/min (>60); Globulin 2.6 gm/dL (2.3-3.5); Glucose 97 mg/dL (74-106); Magnesium 2.4 mg/dL (1.6-2.6); Osmolality,Calculated 275 (275-295); Phosphorous 3.7 mg/dL (2.4-5.1); Potassium 3.4 mMol/L (3.4-5.1); Sodium 136 mMol/L (136-145); Total Protein 6.5 gm/dL (5.7-8.2); eGFR 32 See Note
[2025-05-03] MEDS: SODIUM CHLORIDE 0.9% 1000 ML 1,000 ML 75 ML IV (09:36)
--- NOTE | 2025-05-03 10:23 | ESPR_ITS ---
<Statement entered by Matti German MD - 05/03/25 11:59> Patient was seen and evaluated at bedside this morning. No acute overnight events. Hemoglobin is more stable this morning after 1 PRBC was transfused. Patient creatinine did go up to 2.6 therefore stopped his losartan and gave patient IV fluids. Patient is cultures also came back with Proteus multidrug sensitive, will keep Zosyn for 1 more day and will switch patient's Dilaudid to tramadol 25 mg Q8. Pending EGD. I have reviewed the note and agree with the resident's assessment & plan with exceptions as below. I have personally reviewed labs, imaging, home meds/prior records, examined the patient, formulated and discussed management plan with my attending Matti German PGY2 Disclaimer: Even though this this note was dictated by speech recognition and even though it was carefully revised there may still be minor errors in test analyst due to voice recognition software. Documentation for date of: 05/03/25 Subjective Subjective Interval history: Seen and examined at bedside. No acute events overnight; patient feels that he is still a little dizzy, though less so when asked to sit up. Patient states that he still in some pain and asks for Dilaudid, which he says he takes every 6 hours. Still waiting on EGD from GI. Patient was last prescribed Dilaudid outpatient in August 15, 2024. Will start on Tramadol. Exam Vital Signs Temp Pulse Resp BP Pulse Ox O2 Del Method 97.6 F 91 18 129/93 H 98 Room Air 05/03/25 08:00 05/03/25 09:37 05/03/25 08:00 05/03/25 09:37 05/03/25 08:00 05/03/25 08:00 Narrative Exam General: A/O x3, no acute distress, well-nourished, well-developed Eyes: PERRL, EOMI. Anicteric, vision grossly intact. Ears: No ear pain, no ear discharge, Hearing grossly intact. Nose: No nasal discharge. Mouth/Throat: Moist mucous membranes, no redness, no lesions. Neck: Neck supple, non-tender, no cervical lymphadenopathy. Lungs: Clear ELBA to auscultation and percussion, No accessory muscle use. Cardio: Normal S1/S2, regular rhythm, no murmurs, no JVD or carotid bruits. Abdomen: Soft, no palpable masses, peristalsis present, some guarding, bilateral flank pain on palpation Extremities: Symmetrical, no significant deformities, no peripheral edema , non-tender, peripheral pulses presents. Skin: No rashes, no lesions, warm to touch. Neuro: No focal neurological deficits. Wheelchair-bound secondary to spina bifida. Some dizziness, better when sitting up. Psych: Cooperative, appropriate mood and effect. Objective Labs 05/04/25 04:42 05/04/25 04:42 Labs: Laboratory Results - last 24 hr 05/02/25 05/02/25 05/02/25 04:40 07:05 11:40 WBC RBC Hgb 6.8 L* Hct 22.8 L MCV MCH MCHC RDW Std Deviation Plt Count Neut % (Auto) Lymph % (Auto) [place] % (Auto) Eos % (Auto) Baso % (Auto) Neut # (Auto) Lymph # (Auto) [place] # (Auto) Eos # (Auto) Baso # (Auto) Immature Gran # (Auto) Absolute Nucleated RBC Immature Gran % Nucleated RBC % Retic Count (auto) 2.0 H Absolute Retic 61.5 Immature Retic Fraction 16.1 H Retic Hgb Content CHr 19.7 L Sodium Potassium Chloride Carbon Dioxide Anion Gap BUN Creatinine Estim Creat Clear Calc eGFR BUN/Creatinine Ratio Glucose Calculated Osmolality Calcium Corrected Calcium Phosphorus Magnesium Total Bilirubin AST ALT Alkaline Phosphatase Total Protein Albumin Globulin Albumin/Globulin Ratio Blood Type A Positive Antibody Screen NEGATIVE Crossmatch See Detail Blood Bank Wristband ID Yes 05/02/25 05/03/25 19:44 04:58 WBC 8.1 RBC 3.63 L Hgb 9.1 L D 8.8 L Hct 29.7 L 28.3 L MCV 78 L MCH 24.2 L MCHC 31.1 RDW Std Deviation 53.4 H Plt Count 233 Neut % (Auto) 84 H Lymph % (Auto) 7 L [place] % (Auto) 7 Eos % (Auto) 1 Baso % (Auto) 0 Neut # (Auto) 6.8 Lymph # (Auto) 0.6 L [place] # (Auto) 0.6 Eos # (Auto) 0.1 Baso # (Auto) 0.0 Immature Gran # (Auto) 0.01 H Absolute Nucleated RBC 0.00 Immature Gran % 0 Nucleated RBC % 0 Retic Count (auto) Absolute Retic Immature Retic Fraction Retic Hgb Content CHr Sodium 136 Potassium 3.4 Chloride 105 Carbon Dioxide 19.4 L Anion Gap 12 BUN 22 Creatinine 2.6 H D Estim Creat Clear Calc 24.2 L eGFR 32 L BUN/Creatinine Ratio 8 L Glucose 97 Calculated Osmolality 275 Calcium 8.5 Corrected Calcium 8.6 Phosphorus 3.7 Magnesium 2.4 Total Bilirubin 1.2 AST 23 ALT 19 Alkaline Phosphatase 121 H D Total Protein 6.5 Albumin 3.9 Globulin 2.6 Albumin/Globulin Ratio 1.5 Blood Type Antibody Screen Crossmatch Blood Bank Wristband ID Quality Measures Quality Measures VTE prophylaxis Assessment & Plan Assessment Current Active Medications: Generic Name Dose Route Start Last Admin Trade Name Freq PRN Reason Stop Dose Admin Acetaminophen 650 mg 05/01/25 08:10 Acetaminophen 325 Mg Tablet PO 05/31/25 08:09 Q6H PRN Fever >100.4 Acetaminophen 650 mg 05/01/25 08:10 Acetaminophen 325 Mg Tablet PO 05/31/25 08:09 Q6H PRN PAIN SCALE 1-3 (mild Amlodipine Besylate 10 mg 05/02/25 09:00 05/03/25 09:37 Amlodipine Besylate 5 Mg Tablet PO 06/01/25 08:59 10 mg DAILY ARACELY Administration Clonidine 0.1 mg 05/01/25 21:00 05/03/25 09:37 Clonidine Hcl 0.1 Mg Tablet PO 05/31/25 20:59 0.1 mg BID ARACELY Administration Hydromorphone HCl 1 mg 05/02/25 17:36 05/03/25 09:36 Hydromorphone Inj 2 Mg/Ml Vial IVP 05/07/25 17:35 1 mg Q6HR PRN Administration PAIN 4-10 Piperacillin/Tazobactam/Dextrose 3.375 gm in 50 mls @ 12.5 mls/hr 05/01/25 22:00 05/03/25 06:03 Zosyn IV 05/08/25 21:59 12.5 mls/hr Q8HR ARACELY Administration Protocol Sodium Chloride 1,000 mls @ 75 mls/hr 05/03/25 08:15 05/03/25 09:36 Ns IV 05/03/25 21:34 75 mls/hr .[id number] ARACELY Administration Ondansetron HCl 4 mg 05/01/25 10:21 05/02/25 17:05 Ondansetron Inj 2 Mg/Ml Inj 2 Ml IVP 05/31/25 10:20 4 mg Q8HR PRN Administration NAUSEA OR VOMITING Protocol Pantoprazole Sodium 40 mg 05/02/25 09:15 05/03/25 09:35 Pantoprazole Inj 40 Mg Vial IVP 06/01/25 09:14 40 mg BID ARACELY Administration Plan Patient is a 35-year-old wheelchair-bound male with past medical history of spina bifida, WASHER HAND shunt, recurrent UTIs with ureteral stents presenting with bilateral flank pain and shortness of breath. #Acute pyelonephritis #Recurrent UTI #History of previous ablations and stents on previous admissions Patient symptoms (bilateral flank pain) and history (recurrent UTIs with recent ureteral hardware placement), as well as CT A/P (05/01/2025) confirm pyelonephritis. UA (04-30-25) shows 2+ bacteria and WBCs of 128. Urine cultures resulted?Proteus mirabilis found 05/02/2025 Plan: Pip-tazo IV for empiric treatment (05/01 - Urology consulted (Dr. Morelos)?thank you for recommendations; will not have surgical procedure, just IV antibiotics Pain management on board-patient currently on tramadol 25 p.o. every 8 hours as needed # Microcytic anemia Hgb in between 8 and 10 (MCV between 70 and 80) on previous admissions going back to 2023. Differential includes anemia of chronic disease (recurrent UTI), iron deficiency anemia (iron level 24 on 06/14/2024, ferritin 2 on 12/27/2023). Hgb on this admission 8.3 (05/01/2025); Hgb on 05/02/25 6.8; Hgb on 05/03/25 8.8 Plan: 1 unit pRBCs given 05-02-25 Will trend as part of CBCs GI consulted thank you for recs- will perform EGD on 05/03/25 #TRINI Patient baseline is 1.5-1.6; creatinine on 05/01/2025 is 2.5, 05/02/25 is 2.0, 05/03/25 is 2.6 Likely postrenal in setting of acute manipulation of ureters (stent placement) with bilateral hydronephrosis on CT A/P (05/01/25) Plan: As per pyelonephritis workup 05/03/25 stopped losartan, and gave 1L NS #Hypertensive urgency BP was 181/130 on 05/01/2025 at 6:40 AM; this meets the criteria for hypertensive urgency. Less likely hypertensive emergency as only potential end organ damage (TRINI) is better explained by pyelonephritis and hydronephrosis on CT abdomen pelvis. BP 05-02-25- 154/107 BP 05-03-25- 130/91 Plan: Patient restarted on home amlodipine 10 daily, clonidine 0.1 twice daily; losartan held in context of increasing creatinine Monitor BP #WASHER HAND shunt #Spina bifida Follow-up outpatient Disposition: Med-surg DVT prophylaxis: SCDs GI prophylaxis: N/A Diet: npo for EGD Lines: PIV CODE STATUS: Full code This case was discussed with my attending physician, Dr. Roman, and senior resident, Dr. Castano. All Estevez MD-PhD, PGY1 Attending Provider Attestation/Addendum I have discussed and was present for the essential components of the history, physical examination, diagnosis, and treatment plan with the resident. I agree with the patient's care as documented by the resident and amended herein by me. Felipe Roman DO. Although this document has been carefully reviewed, there may still be some phonetic and other typographical errors. These errors are purely grammatical due to imperfections in the software program and should not be construed in any way to compromise the substance of the patient's medical care during this visit.
--- NOTE | 2025-05-03 10:50 | PC.SS ---
rounding note: Pending EGD tonight. D/c over weekend
--- NOTE | 2025-05-03 17:05 | SUR.PHASEI ---
pt received from OR in recovery bay 1. pt asleep but responds to voice, breathing unlabored on nc 2l. v/s stable. report received from Afshan PADILLA.
--- NOTE | 2025-05-03 18:13 | SUR.PHASEI ---
pt awake and alert, breathing unlabored on room air. v/s stable. report called to Brenda PADILLA. pt will be transferred to room at this time.
[2025-05-04] VITALS: BP 150/105; PULSE 87; RESP 18; TEMP 36.6; O2SAT 100
[2025-05-04 04:00] VITALS: BP 158/101; PULSE 96; RESP 18; TEMP 36.3; O2SAT 98
[2025-05-04] MEDS: PIPER/TAZO 3.375 GM PREMIX 3.375 GM/50 ML BAG IV (05:35)
[2025-05-04 05:37] LABS: Basophils # (Auto) 0.0 Thou/mm3 (0.0-0.2); Basophils % (Auto) 0 % (0-2.5); Eosinophils # (Auto) 0.2 Thou/mm3 (0.0-0.5); Eosinophils % (Auto) 2 % (0-10); Hematocrit 29.8 % (41.0-53.0); Hemoglobin 9.2 g/dL (13.5-16.0); Immature Granulocytes Auto 0.02 Thou/mm3 (0.00-0.00); Lymphocytes # (Auto) 0.5 Thou/mm3 (1.0-4.8); Lymphocytes % (Auto) 7 % (10-50); Mean Corpuscular HGB Conc 30.9 g/dl (31.0-37.0); Mean Corpuscular Hemoglobin 23.8 pg (25.0-35.0); Mean Corpuscular Volume 77 fL (80-100); Monocytes # (Auto) 0.5 Thou/mm3 (0.0-0.8); Monocytes % (Auto) 6 % (0-12); Neutrophils # (Auto) 6.9 Thou/mm3 (1.8-7.7); Neutrophils % (Auto) 85 % (37-80); Nucleated Red Blood Cell # 0.00 Thou/mm3 (0.00-0.00); Nucleated Red Blood Cell % 0 /100 WBC (0); Platelet Count 248 Thou/mm3 (140-440); RDW Standard Deviation 53.5 fL (35.1-43.9); Red Blood Count 3.87 Miln/mm3 (4.50-5.90); White Blood Count 8.2 Thou/mm3 (3.8-10.6)
[2025-05-04 06:01] LABS: Alanine Aminotransferase 22 U/L (10-49); Albumin, Serum 3.7 gm/dL (3.5-5.0); Albumin/Globulin Ratio 1.5 (1.2-2.2); Alkaline Phosphatase 118 U/L (46-116); Anion Gap 14 (7-16); Aspartate Amino Transferase 19 U/L (0-34); BUN/Creatinine Ratio 9 Ratio (12-20); Bilirubin,Total 0.9 mg/dL (0.3-1.2); Blood Urea Nitrogen 18 mg/dL (9-23); Calcium 8.3 mg/dL (8.3-10.6); Calcium (Corrected) 8.5 mg/dL (8.5-10.1); Carbon Dioxide 18.3 mMol/L (20.0-31.0); Chloride 111 mMol/L (98-107); Creatinine (Component) 2.1 mg/dL (0.6-1.3); Estimated Creatinine Clearance 29.9 mL/min (>60); Globulin 2.4 gm/dL (2.3-3.5); Glucose 84 mg/dL (74-106); Magnesium 2.4 mg/dL (1.6-2.6); Osmolality,Calculated 285 (275-295); Phosphorous 3.1 mg/dL (2.4-5.1); Potassium 3.4 mMol/L (3.4-5.1); Sodium 143 mMol/L (136-145); Total Protein 6.1 gm/dL (5.7-8.2); eGFR 41 See Note
--- NOTE | 2025-05-04 07:52 | PD.RESPRO ---
Documentation for date of: 05/04/25 Exam Vital Signs Temp Pulse Resp BP Pulse Ox O2 Del Method O2 Flow Rate 97.4 F 96 18 158/101 H 98 Room Air 1 05/04/25 04:00 05/04/25 04:00 05/04/25 04:00 05/04/25 04:00 05/04/25 04:00 05/04/25 04:00 05/03/25 17:45 Objective Labs 05/04/25 04:42 05/04/25 04:42 Labs: Laboratory Results - last 24 hr 05/04/25 04:42 WBC 8.2 RBC 3.87 L Hgb 9.2 L Hct 29.8 L MCV 77 L MCH 23.8 L MCHC 30.9 L RDW Std Deviation 53.5 H Plt Count 248 Neut % (Auto) 85 H Lymph % (Auto) 7 L Kay % (Auto) 6 Eos % (Auto) 2 Baso % (Auto) 0 Neut # (Auto) 6.9 Lymph # (Auto) 0.5 L Kay # (Auto) 0.5 Eos # (Auto) 0.2 Baso # (Auto) 0.0 Immature Gran # (Auto) 0.02 H Absolute Nucleated RBC 0.00 Immature Gran % 0 Nucleated RBC % 0 Sodium 143 Potassium 3.4 Chloride 111 H Carbon Dioxide 18.3 L Anion Gap 14 BUN 18 Creatinine 2.1 H D Estim Creat Clear Calc 29.9 L eGFR 41 L BUN/Creatinine Ratio 9 L Glucose 84 Calculated Osmolality 285 Calcium 8.3 Corrected Calcium 8.5 Phosphorus 3.1 Magnesium 2.4 Total Bilirubin 0.9 AST 19 ALT 22 Alkaline Phosphatase 118 H Total Protein 6.1 Albumin 3.7 Globulin 2.4 Albumin/Globulin Ratio 1.5 Quality Measures Quality Measures VTE prophylaxis Assessment & Plan Assessment Current Active Medications: Generic Name Dose Route Start Last Admin Trade Name Freq PRN Reason Stop Dose Admin Acetaminophen 650 mg 05/01/25 08:10 Acetaminophen 325 Mg Tablet PO 05/31/25 08:09 Q6H PRN Fever >100.4 Acetaminophen 650 mg 05/01/25 08:10 Acetaminophen 325 Mg Tablet PO 05/31/25 08:09 Q6H PRN PAIN SCALE 1-3 (mild Amlodipine Besylate 10 mg 05/02/25 09:00 05/03/25 09:37 Amlodipine Besylate 5 Mg Tablet PO 06/01/25 08:59 10 mg DAILY ARACELY Administration Clonidine 0.1 mg 05/01/25 21:00 05/03/25 20:21 Clonidine Hcl 0.1 Mg Tablet PO 05/31/25 20:59 0.1 mg BID ARACELY Administration Piperacillin/Tazobactam/Dextrose 3.375 gm in 50 mls @ 12.5 mls/hr 05/01/25 22:00 05/04/25 05:35 Zosyn IV 05/08/25 21:59 12.5 mls/hr Q8HR ARACELY Administration Protocol Ondansetron HCl 4 mg 05/01/25 10:21 05/02/25 17:05 Ondansetron Inj 2 Mg/Ml Inj 2 Ml IVP 05/31/25 10:20 4 mg Q8HR PRN Administration NAUSEA OR VOMITING Protocol Pantoprazole Sodium 40 mg 05/02/25 09:15 05/03/25 20:23 Pantoprazole Inj 40 Mg Vial IVP 06/01/25 09:14 40 mg BID ARACELY Administration Tramadol HCl 25 mg 05/03/25 11:56 05/03/25 19:33 Tramadol Hcl 50 Mg Tablet PO 05/08/25 11:55 25 mg Q8HR PRN Administration PAIN 4-10
[2025-05-04 08:00] VITALS: BP 170/115; PULSE 91; RESP 18; TEMP 36.6; O2SAT 99
[2025-05-04 08:32] VITALS: BP 170/115; PULSE 91
--- NOTE | 2025-05-04 12:15 | ESDS_ITS ---
<Statement entered by Matti German MD - 05/04/25 16:19> Patient was seen and examined at bedside as well. No acute overnight events. Patient was admitted for complicated UTI and pyelonephritis, patient's hospital course was fairly uncomplicated on IV antibiotics except for rapid response called due to dizziness likely in the setting of Dilaudid. At this time his Dilaudid was changed to every 8 hours and to a lower dose, but was transition to tramadol. Today the patient sensitivities came back for his urine and showed that good sensitivity for Augmentin. At this time patient is stable enough to be discharged home on Augmentin and tramadol. I have reviewed the note and agree with the resident's assessment & plan with exceptions as below. I have personally reviewed labs, imaging, home meds/prior records, examined the patient, formulated and discussed management plan with my attending Matti German PGY2 Disclaimer: Even though this this note was dictated by speech recognition and even though it was carefully revised there may still be minor errors in stained glass artist due to voice recognition software. Planned Discharge Date 05/04/25 DS: Providers Provider Date of admission: 05/01/25 08:10 Primary care physician: Vandana Sears NP Admitting Provider: Arun Roman DO Attending Provider on Admission: Arun Roman DO Consults: 05/01/25 06:55 Consult to Urology Stat Comment: pyleo and evaluation of stents Consulting Provider: Gisel Morelos 05/02/25 16:57 Consult to Gastroenterology Routine Comment: Consulting Provider: Tiffanie Nava Attending Provider on DC: Arun Roman DO Discharging Provider: Arun Roman DO DS: Diagnosis Problem List Completed Was Problem List Reviewed/Reconciled?: Yes Hospital Course Hospital Course Hospital course: Hospital Course: Patient is a 35-year-old wheelchair-bound male with PMH of spina bifida, 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 Patient was experiencing flank pain and some shortness of breath; CT A/P 05/01/25 confirmed R pyelonephritis and bilateral hydronephrosis. Patient also presented with hypertensive urgency, TRINI (likely postrenal) and chronic microcytic anemia. Urology was consulted, who recommended no surgery but IV antibiotics. Patient placed on cipro and vancomycin. Urine culture were obtained. Patient was restarted on home amlodipine and clonidine; losartan held due to TRINI. On 05/02/25, patient TRINI improved, so he was restarted on losartan. Hgb fell to 6.8; he was given 1 unit pRBCs and GI was consulted. That same day, rapid response was called due to dilaudid overdose; dilaudid was reduced from 1mg every 4 hours to 0.5mg every 6 hours. On 05/03/25 patient still felt a little dizzy, and was asking for dilaudid. To prevent any issues with potential overdose, we gave him Tramadol. Losartan was also stopped due to worsening TRINI. On 05/04/25, urine cultures came back with proteus mirabilis; he was transitioned to Augmentin based on sensitivities. Patient's TRINI was resolving, and his EGD (05/03/25) only showed gastritis. Patient is no longer dizzy, and is stable for discharge on 05/04/25. Discharge Instructions: Please follow up with your primary care physician within 3-5 days upon discharge Please follow up with your urologist within 7 days upon discharge Recommend outpatient nephrology follow up Please continue taking Augmentin for 11 more days We have prescribed tramadol for 3 more days. Please continue all other home meds as prescribed Please come back to the ER if symptoms persist or worsen. 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 shunt #Spina bifida Status at Discharge Functional status at discharge: wheelchair bound Overall status at discharge: patient is progressing back to baseline Time Spent with Patient Time attestation: Total time spent providing and/or coordinating discharge services: Time spent: Greater than 30 minutes Exam Vital Signs Temp Pulse Resp BP Pulse Ox O2 Del Method O2 Flow Rate 97.8 F 91 18 170/115 H 99 Room Air 1 05/04/25 08:00 05/04/25 08:32 05/04/25 08:00 05/04/25 08:32 05/04/25 08:00 05/04/25 08:00 05/03/25 17:45 Narrative Exam General: A/O x3, no acute distress, well-nourished, well-developed Eyes: PERRL, EOMI. Anicteric, vision grossly intact. Ears: No ear pain, no ear discharge, Hearing grossly intact. Nose: No nasal discharge. Mouth/Throat: Moist mucous membranes, no redness, no lesions. Neck: Neck supple, non-tender, no cervical lymphadenopathy. Lungs: Clear ELBA to auscultation and percussion, No accessory muscle use. Cardio: Normal S1/S2, regular rhythm, no murmurs, no JVD or carotid bruits. Abdomen: Soft, no palpable masses, peristalsis present, some guarding, no flank pain Extremities: Symmetrical, no significant deformities, no peripheral edema , non-tender, peripheral pulses presents. Skin: No rashes, no lesions, warm to touch. Neuro: No focal neurological deficits. Wheelchair-bound secondary to spina b ifida. Dizziness resolved. Psych: Cooperative, appropriate mood and effect. Discharge Plan Plan Patient Disposition: HOME (Self Care) Patient condition on transfer: Stable Care Plan Goals: Please follow up with your primary care physician within 3-5 days upon discharge Please follow up with your urologist within 7 days upon discharge Recommend outpatient nephrology follow up Please continue taking Augmentin for 11 more days We have prescribed tramadol for 3 more days. Please continue all other home meds as prescribed Please come back to the ER if symptoms persist or worsen. Prescriptions/Referrals Prescriptions/Med Rec: New amoxicillin-pot clavulanate 875-125 mg tablet 1 tab PO BID 11 Days Qty: 22 0RF tramadol 50 mg tablet 50 mg PO Q8H PRN (Reason: pain) 3 Days Qty: 9 0RF Continued amlodipine 10 mg tablet 10 mg PO DAILY Patient Comments: TAKE 1 TABLET BY MOUTH EVERY DAY losartan 25 mg tablet 25 mg PO DAILY Patient Comments: TAKE 1 TABLET BY MOUTH EVERY DAY clonidine HCl 0.1 mg tablet 0.1 mg PO BID Patient Comments: TAKE 1 TABLET BY MOUTH TWICE A DAY ondansetron 4 mg tablet,disintegrating 4 mg PO Q6H PRN (Reason: nausea and vomiting) Patient Comments: DISSOLVE 1 TABLET UNDER THE TONGUE THREE TIMES A DAY NEEDED FOR NAUSEA AND VOMITING FOR 30 DAYS Referrals: Vandana Sears NP [Primary Care Provider] Patient/Caregiver Discharge Instructions Other Discharge Activity Instructions:: Please follow up with your primary care physician within 3-5 days upon discharge Please follow up with your urologist within 7 days upon discharge Recommend outpatient nephrology follow up Please continue taking Augmentin for 11 more days We have prescribed tramadol for 3 more days. Please continue all other home meds as prescribed Please come back to the ER if symptoms persist or worsen. Education Materials: Anatomy of the Male Urinary Tract, Kidney Infec Dc Print Language: Yemeni Stand Alone Forms: Leyla Award Info., Patient Portal Info Letter Discharge Order Discharge Orders: Discharge (Routine); Ordered 05/04/25 Ordered By: Matti German Quality Discharge Quality Measures none MD Attestestation MD Attestation I have discussed and was present for the essential components of the discharge history, physical examination, diagnosis, and discharge treatment plan with the resident. I agree with the patient's discharge care as documented by the resident and amended herein by me. Felipe Roman DO. The patient understood all discharge instructions, all questions were answered satisfactorily. The patient was instructed to return to the Emergency Department is symptoms worsened or persisted. Patient symptoms significantly improved, urine cultures demonstrating MDR E. coli, oral choices for antibiotics limited however we did choose Augmentin 875 twice daily and we will treat the patient for a total 14-day course considering his history. Patient was stable, afebrile, tolerating p.o. intake at time of discharge home. He understood all instructions, all questions answered satisfactorily. Although this document has been carefully reviewed, there may still be some phonetic and other typographical errors. These errors are purely grammatical due to imperfections in the software program and should not be construed in any way to compromise the substance of the patient's medical care during this visit. Time Spent on discharge:
--- NOTE | 2025-05-04 20:34 | ESPR_ITS ---
Documentation for date of: 05/04/25 Subjective Subjective Interval history: Late entry for the note Case discussed with internal medicine team Hemoglobin hematocrit 9.2 and 29.8 Doing well Okay to discharge patient to be followed by the PCP Exam Vital Signs Temp Pulse Resp BP Pulse Ox O2 Del Method O2 Flow Rate 97.8 F 91 18 170/115 H 99 Room Air 1 05/04/25 08:00 05/04/25 08:32 05/04/25 08:00 05/04/25 08:32 05/04/25 08:00 05/04/25 08:00 05/03/25 17:45 Objective Labs 05/04/25 04:42 05/04/25 04:42 Labs: Laboratory Results - last 24 hr 05/04/25 04:42 WBC 8.2 RBC 3.87 L Hgb 9.2 L Hct 29.8 L MCV 77 L MCH 23.8 L MCHC 30.9 L RDW Std Deviation 53.5 H Plt Count 248 Neut % (Auto) 85 H Lymph % (Auto) [address] % (Auto) 6 Eos % (Auto) 2 Baso % (Auto) 0 Neut # (Auto) 6.9 Lymph # (Auto) 0.[address] [place] # (Auto) 0.5 Eos # (Auto) 0.2 Baso # (Auto) 0.0 Immature Gran # (Auto) 0.02 H Absolute Nucleated RBC 0.00 Immature Gran % 0 Nucleated RBC % 0 Sodium 143 Potassium 3.4 Chloride 111 H Carbon Dioxide 18.3 L Anion Gap 14 BUN 18 Creatinine 2.1 H D Estim Creat Clear Calc 29.9 L eGFR 41 L BUN/Creatinine Ratio 9 L Glucose 84 Calculated Osmolality 285 Calcium 8.3 Corrected Calcium 8.5 Phosphorus 3.1 Magnesium 2.4 Total Bilirubin 0.9 AST 19 ALT 22 Alkaline Phosphatase 118 H Total Protein 6.1 Albumin 3.7 Globulin 2.4 Albumin/Globulin Ratio 1.5 Impressions Impression: Distal GE junction erosions Gastritis Okay to discharge patient home on a PPI and the peptic ulcer disease diet to be followed by the PCP Assessment & Plan Time Spent With Patient Time: Total time spent is greater than 50% in coordination of care (as documented) at patient's floor/unit and/or counseling patient:
== END 2025-05-04 11:47 | disposition home or self-care (01) | DRG 463 ==
LOC: SERX 05-01 08:00 → SERHOLD 05-01 09:05 → S3SX 05-02 06:28
PROVIDERS: Physician Assistant; Specialist; Student in an Organized Health Care Education/Training Program; Admitting Provider Student in an Organized Health Care Education/Training Program; PCP Nurse Practitioner Family; Visit Provider Student in an Organized Health Care Education/Training Program
PROC: 0DJ08ZZ Inspection of Upper Intestinal Tract, Via Natural or Artificial Opening Endoscopic (ICD-10-PCS; CPT 43239; principal; 2025-05-03 18:30)
DX: N13.6 Pyonephrosis (principal); Q05.9 Spina bifida, unspecified; Z87.440 Personal history of urinary (tract) infections; F12.90 Cannabis use, unspecified, uncomplicated; N17.9 Acute kidney failure, unspecified; D50.9 Iron deficiency anemia, unspecified; I16.0 Hypertensive urgency; I10 Essential (primary) hypertension; Z99.3 Dependence on wheelchair; T40.2X1A Poisoning by other opioids, accidental (unintentional), initial encounter; T80.92XA Unspecified transfusion reaction, initial encounter; Z75.3 Unavailability and inaccessibility of health-care facilities; Z79.899 Other long term (current) drug therapy; Z98.2 Presence of cerebrospinal fluid drainage device; K29.70 Gastritis, unspecified, without bleeding
CPT/HCPCS: 36415; 74176; 80053; 81001; 82728; 83540; 83550; 83690; 83735; 84100; 85014; 85018; 85025; 85046; 86850; 86900; 86901; 86923; 87040; 87077; 87086; 87186; 96361; 96365; 96366; 96375; 96376; 99285; A4649; J0696; J0744; J1171; J1200; J1885; J2250; J2270; J2405; J2470; J2543; J2765; J3010; J3475; J7030; J7120; P9016; A9270

== ENCOUNTER 2025-05-22 03:23 | Inpatient (IN) | payer MEDICAID, SELFPAY ==
[2025-05-22] VITALS (16 sets, daily range): BP systolic 90–202; BP diastolic 60–133; PULSE 57–110; RESP 16–97; TEMP 36.4–36.8; O2SAT 95–99; BMI 25.3
--- NOTE | 2025-05-22 03:36 | XR_ITS ---
Examination: CT abdomen and pelvis without contrast. Coronal 3-D reconstructions. Sagittal 2-D reconstructions. Date and time of exam: May 22, 2025, 0356 hours, comparison April 30, 2025 INDICATIONS: Bilateral flank pain 2 days, history kidney stones CTDI: vol (mGy): 5.19 DLP: (mGycm): 273 Technique: Axial images of the abdomen have been obtained, 3 mm slice thickness Intravenous contrast material has not been administered. Low dose protocols were performed. One or more of the following dose reduction techniques were used; automated exposure control, adjustment of the mA and/or KV according to patient size, use of iterative reconstruction technique. Findings: No focal liver or splenic lesions No gallstones No pancreatic or adrenal mass Multiple staghorn bilateral renal calculi, ureteral stent in satisfactory position Edematous appearing right kidney with wall thickening involving the pelvicalyceal system and ureter Mild bilateral hydronephrosis Aorta normal size No bowel obstruction No pericecal inflammatory change Abundant stool in the rectosigmoid Contracted urinary bladder with marked urinary bladder wall thickening Old healed fracture proximal right femur IMPRESSION: Extensive bilateral staghorn calculi Bilateral ureteral stent in satisfactory position Findings consistent with right pyelonephritis and ureteritis Prominent cystitis
--- NOTE | 2025-05-22 03:37 | PD.EDRME ---
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 Patient recently discharged for this with Augmentin, which patient finished. Chief Complaint: Abdominal Pain Vital signs: Vital Signs Temperature 98.3 F 05/22/25 03:30 Pulse Rate 104 H 05/22/25 03:30 Respiratory Rate 19 05/22/25 03:30 Blood Pressure 202/133 H 05/22/25 03:30 Pulse Oximetry (%) 98 05/22/25 03:30 Oxygen Delivery Method Room Air 05/22/25 03:30 Exam: Uncomfortable-appearing Clinical Impression: Kidney stone vs UTI/pyelo vs sepsis vs appy vs ab pain vs discitis vs TRINI
[2025-05-22 03:56] LABS: Collection Type, Urine Clean Catch
[2025-05-22 04:17] LABS: Bacteria,Urine 3+; Bilirubin,Urine Negative (Negative); Blood,Urine 3+ (Negative); Glucose, Urine Negative (Negative); Ketones,Urine Negative (Negative); Leukocyte Esterase,Urine Positive (Negative); Nitrite,Urine Positive (Negative); PH,Urine 8.0 (5.0-7.0); Protein,Urine 2+ (Neg - Trace); RBC,Urine 149 /hpf (0-3); Specific Gravity,Urine 1.007 (1.001-1.035); Squamous Epithelial Cell,Urine 7 /hpf (0-5); Urobilinogen,Urine Negative mg/dL (0.0-1.0); WBC,Urine 208 /hpf (0-5)
[2025-05-22 04:18] LABS: Clarity,Urine Turbid (Clear/Hazy); Color,Urine Lt Yellow (Lt Yel-Yel)
--- NOTE | 2025-05-22 05:02 | PRELIM_ITS ---
CT scan of the abdomen and pelvis without intravenous contrast (axial sections with sagittal and coronal reformats) May 22, 2025 at 0356 hours Clinical History: Flank pain. Comparison: Compared with the prior study dated November 22, 2024. Findings: The lung bases are clear. The liver, gallbladder, pancreas, spleen and adrenals are unremarkable on this noncontrast study. Bilateral nonobstructing kidney stones. Bilateral hydroureteronephrosis with transition point at the UVJs. Bilateral JJ tubes in place from the renal pelvises to the urinary bladder. Bilateral thickening of the ureter [place]. No evidence of bowel obstruction. No evidence of appendicitis. There is no mesenteric or retroperitoneal adenopathy. Urinary bladder wall thickening. Chronic changes of the proximal right femur. There is no free fluid or free air. The osseous structures are unremarkable. Status post bowel resection. Impression: 1. Probable ureteritis, cystitis, and possible pyelonephritis. 2. Bilateral nonobstructing nephrolithiasis. 3. Bilateral hydroureteronephrosis. Report Electronically Signed By: Jason Muñoz 05/22/2025 5:01:40 AM [EST]
[2025-05-22 05:11] LABS: Basophils # (Auto) 0.0 Thou/mm3 (0.0-0.2); Basophils % (Auto) 1 % (0-2.5); Eosinophils # (Auto) 0.1 Thou/mm3 (0.0-0.5); Eosinophils % (Auto) 2 % (0-10); Hematocrit 33.0 % (41.0-53.0); Hemoglobin 10.1 g/dL (13.5-16.0); Immature Granulocytes Auto 0.01 Thou/mm3 (0.00-0.00); Lymphocytes # (Auto) 0.6 Thou/mm3 (1.0-4.8); Lymphocytes % (Auto) 11 % (10-50); Mean Corpuscular HGB Conc 30.6 g/dl (31.0-37.0); Mean Corpuscular Hemoglobin 23.1 pg (25.0-35.0); Mean Corpuscular Volume 75 fL (80-100); Monocytes # (Auto) 0.3 Thou/mm3 (0.0-0.8); Monocytes % (Auto) 5 % (0-12); Neutrophils # (Auto) 4.8 Thou/mm3 (1.8-7.7); Neutrophils % (Auto) 82 % (37-80); Nucleated Red Blood Cell # 0.00 Thou/mm3 (0.00-0.00); Nucleated Red Blood Cell % 0 /100 WBC (0); Platelet Count 315 Thou/mm3 (140-440); RDW Standard Deviation 55.8 fL (35.1-43.9); Red Blood Count 4.38 Miln/mm3 (4.50-5.90); White Blood Count 5.9 Thou/mm3 (3.8-10.6)
[2025-05-22] MEDS: SODIUM CHLORIDE 0.9% 1000 ML 1,000 ML 999 ML IV (05:29)
[2025-05-22] MEDS: MORPHINE SULF INJ 4 MG/ML VIAL IVP ×2 (05:30→08:56)
[2025-05-22] MEDS: ONDANSETRON INJ 2 MG/ML INJ 2 ML 4 MG IVP (05:33)
[2025-05-22 05:59] LABS: Alanine Aminotransferase < 7 U/L (10-49); Albumin, Serum 4.5 gm/dL (3.5-5.0); Albumin/Globulin Ratio 1.8 (1.2-2.2); Alkaline Phosphatase 115 U/L (46-116); Anion Gap 14 (7-16); Aspartate Amino Transferase 14 U/L (0-34); BUN/Creatinine Ratio 16 Ratio (12-20); Bilirubin,Total 0.9 mg/dL (0.3-1.2); Blood Urea Nitrogen 32 mg/dL (9-23); Calcium 8.8 mg/dL (8.3-10.6); Calcium (Corrected) 8.8 mg/dL (8.5-10.1); Carbon Dioxide 21.2 mMol/L (20.0-31.0); Chloride 103 mMol/L (98-107); Creatinine (Component) 2.0 mg/dL (0.6-1.3); Estimated Creatinine Clearance 31.4 mL/min (>60); Globulin 2.5 gm/dL (2.3-3.5); Glucose 100 mg/dL (74-106); Lipase 30 U/L (12-53); Osmolality,Calculated 282 (275-295); Potassium 3.0 mMol/L (3.4-5.1); Sodium 138 mMol/L (136-145); Total Protein 7.0 gm/dL (5.7-8.2); eGFR 44 See Note
[2025-05-22] MEDS: POTASSIUM CHLORIDE 10% 20 MEQ/15 ML UDC 40 MEQ PO (06:40)
[2025-05-22] MEDS: METOPROLOL TARTRATE 25 MG TABLET 50 MG PO (06:41)
[2025-05-22] MEDS: RINGERS LACTATED 1000 ML 1,000 ML IV (06:43)
[2025-05-22] MEDS: KETOROLAC INJ 30 MG/ML VIAL IVP (06:43)
[2025-05-22 06:49] LABS: Lactate (Lactic Acid) 0.8 mMol/L (0.4-2.0)
[2025-05-22] MEDS: cefTRIAXone/D5w 1gm IV premix 1 GM/50 ML BAG IV (06:55)
[2025-05-22 07:32] LABS: C-Reactive Protein 0.7 mg/dL (0.0-0.9); Magnesium 2.0 mg/dL (1.6-2.6); Procalcitonin 0.09 ng/ml (0.0-0.49)
--- NOTE | 2025-05-22 08:03 | EDNOTE_ITS ---
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 Patient recently discharged for this with Augmentin, which patient finished. Exam: Uncomfortable-appearing Impression: Kidney stone vs UTI/pyelo vs sepsis vs appy vs ab pain vs discitis vs TRINI Related Data Home Medications ?Medication ?Instructions ?Recorded ?Confirmed amlodipine 10 mg tablet 10 mg PO DAILY 06/06/2403/18 clonidine HCl 0.1 mg tablet 0.1 mg PO BID 01/14/2503/18 losartan 25 mg tablet 25 mg PO DAILY 01/14/2503/18 ondansetron 4 mg disintegrating 4 mg PO Q6H PRN nausea and vomiting 04/03/25 05/01/25 tablet Allergies Allergy/AdvReac Type Severity Reaction Status Date / Time hydrocodone (From [place]) Allergy Severe ITCH Verified 05/22/25 03:24 latex Allergy Severe RASH Verified 05/22/25 03:24 Course Quality Measures none Orders Category Date Time Status COVID-19 Screening Questionnaire NOW Care 05/22/25 08:17 Active Decision to Admit X1 Care 05/22/25 08:17 Completed IV [Insert IV] NOW Care 05/22/25 04:46 Active Consult to Urology Stat Cons 05/22/25 07:[address] abdomen pelvis wo con Stat Exams 05/22/25 03:36 Completed Blood Culture (Lab) Stat Lab 05/22/25 06:36 Received CBC Stat Lab 05/22/25 04:46 Results CMP [Comprehensive Metabolic Panel] Stat Lab 05/22/25 04:46 Completed CRP [C-Reactive Protein] Stat Lab 05/22/25 06:36 Completed Lactate (Lactic Acid) Stat Lab 05/22/25 06:36 Completed Lipase Stat Lab 05/22/25 04:46 Completed Magnesium Stat Lab 05/22/25 06:36 Completed Procalcitonin Stat Lab 05/22/25 06:36 Completed Sed Rate (ESR) Stat Lab 05/22/25 04:46 Results UA [Urinalysis] Stat Lab 05/22/25 03:50 Completed Urine Culture Stat Lab 05/22/25 03:50 Received Ketorolac Inj [Toradol Inj] Med 05/22/25 06:02 Discontinued 30 mg IVP X1 ONE Metoprolol Tartrate [Lopressor] Med 05/22/25 06:02 Discontinued 50 mg PO X1 ONE Morphine* Inj Med 05/22/25 05:19 Discontinued 4 mg IVP X1 ONE Ondansetron Inj [Zofran Inj] Med 05/22/25 05:18 Discontinued 4 mg IVP X1 ONE POTASSIUM CHL 10% Liq 15 ML Med 05/22/25 06:01 Discontinued 40 meq PO X1 ONE Ringers Lactated 1000 ml [Lactated Ringers] 1,000 ml Med 05/22/25 06:02 Discontinued IV 1,000 mls/hr Sodium Chloride 0.9% 1000 ml [Ns] 1,000 ml Med 05/22/25 05:18 Discontinued IV 999 mls/hr cefTRIAXone/D5w 1gm IV premix [Rocephin/D5w 1gm IV Med 05/22/25 06:24 Discontinued premix] 1 gm in 50 ml IV X1 cloNIDine HCL [Catapres] Med 05/22/25 06:02 Discontinued 0.2 mg PO X1 ONE Vital Signs Vital signs: Vital Signs Temperature 98.3 F 05/22/25 03:30 Pulse Rate 104 H 05/22/25 03:30 Respiratory Rate 19 05/22/25 03:30 Blood Pressure 202/133 H 05/22/25 03:30 Pulse Oximetry (%) 98 05/22/25 03:30 Oxygen Delivery Method Room Air 05/22/25 03:30 Abdominal Pain MDM MDM Narrative MDM Narrative:: This section includes all my notes and documentations, including HPI, PE, and ED course. Torsten Salinas MD HPI: 35-year-old male here with several days of severe flank pain bilaterally. Was hospitalized here about 3 weeks ago with severe pyelonephritis. Took complete antibiotic course and he felt completely better until several days ago. No obvious fever. No other complaints. ROS: All negative except as documented in HPI. Physical Exam: General: Alert and oriented. In obvious pain. Eyes: Conjunctivae and lids clear. ENT: No nasal congestion. Neck: Supple. Heart: RRR. Lungs: No respiratory distress. Good air movement. No rhonchi, wheezing, rales. Abdomen: Soft and nontender. Normal bowel sounds. No distension. No rebound or guarding. Back: No CVA tenderness. Skin: Warm and dry. Neuro: Alert and oriented X 3. I reviewed EMS and skilled nursing notes. I reviewed all diagnostic test results: My review of the abdominal CT report is: There is right pyelonephritis and ureteritis. Blood tests remarkable for K 3.0, Cr 2.0. UA showed positive nitrite, positive leukocyte esterase, 149 RBC, 208 WBC, and 3+ bacteria. At this point, diagnoses include: Right pyelonephritis. Treatment here included: IV fluid Morphine 4 mg IV Oral KCl 40 mEq Rocephin 1 g IV Patient remained stable. I discussed the case with our hospitalist and our urologist. About the presentation and exam and diagnostics and treatments here. And need of further care in the hospital. Will accept the patient. Torsten Salinas MD Patient data External records reviewed:: [facility] previous records and EMS form Clinical information provided by:: patient and EMS Social determinants that could affect healthcare access:: other (specify) (Wheelchair-bound) Patient has the following chronic illnesses:: See notes How is presenting disease/condition affected by chronic disease/condition?: exacerbated by Evaluation data The following diagnostics were reviewed and interpreted by me:: lab results and radiology exam(s) Lab and/or radiology exams considered but not ordered:: None Interpretation Summary: I reviewed all diagnostic test results: My review of the abdominal CT report is: There is right pyelonephritis and ureteritis. Blood tests remarkable for K 3.0, Cr 2.0. UA showed positive nitrite, positive leukocyte esterase, 149 RBC, 208 WBC, and 3+ bacteria. Medications / Prescriptions Medications or Prescriptions considered but not ordered:: None Medication administrations:: Medication Administration History Acetaminophen (Acetaminophen 325 Mg Tablet) 650 mg PO Q6H PRN; Protocol PRN Reason: PAIN OR FEVER > 101 Stop: 06/21/25 08:32 Amlodipine Besylate (Amlodipine Besylate 5 Mg Tablet) 10 mg PO DAILY ARACELY Stop: 06/21/25 08:59 Last Admin: 10/29/25 08:53 Dose: 10 mg Documented By: EF Clonidine (Clonidine Hcl 0.1 Mg Tablet) 0.1 mg PO BID ARACELY Stop: 06/21/25 08:59 Last Admin: 05/22/25 08:54 Dose: 0.1 mg Documented By: EF Piperacillin/Tazobactam/Dextrose (Zosyn) 3.375 gm in 50 mls @ 12.5 mls/hr IV Q8HR ARACELY; Protocol Stop: 05/29/25 13:59 Piperacillin Sod/Tazobactam (Sod 4.5 gm/ Sodium Chloride) 100 mls @ 200 mls/hr IV X1 ONE; Protocol Stop: 05/22/25 09:14 Last Admin: 05/22/25 08:55 Dose: 200 mls/hr Documented By: EF Labetalol HCl (Labetalol Inj 5 Mg/Ml Vial 20 Ml) 10 mg IVP Q4H PRN PRN Reason: SBP > 180 Stop: 06/21/25 08:44 Losartan Potassium (Losartan Potassium 25 Mg Tablet) [address] [facility] Stop: 06/21/25 08:59 Last Admin: 05/22/25 08:55 Dose: 25 mg Documented By: EF Morphine Sulfate (Morphine Sulf Inj 4 Mg/Ml Vial) 4 mg IVP Q4HR PRN PRN Reason: PAIN SCALE 6-10(Mod-Sev Stop: 05/27/25 08:32 Last Admin: 05/22/25 08:56 Dose: 4 mg Documented By: EF Ondansetron HCl (Ondansetron Inj 2 Mg/Ml Inj 2 Ml) 4 mg IV Q6H PRN; Protocol PRN Reason: NAUSEA OR VOMITING Stop: 06/21/25 08:32 Last Admin: 05/22/25 08:55 Dose: 4 mg Documented By: EF Pharmacy Consult (Pharmacy Renal Dose Adjustment 1 Ea) 1 each XX PRN PRN PRN Reason: CONSULT Stop: 06/21/25 08:37 Sennosides (Senna Tablet) 2 tab PO BID PRN; Protocol PRN Reason: CONSTIPATION Stop: 06/21/25 08:32 Discontinued Medications Clonidine (Clonidine Hcl 0.1 Mg Tablet) 0.2 mg PO X1 ONE Stop: 05/22/25 06:03 Last Admin: 05/22/25 06:42 Dose: 0.2 mg Documented By: JENELLE Sodium Chloride (Ns) 1,000 mls @ 999 mls/hr IV .Q1H1M ONE Stop: 05/22/25 06:18 Last Infusion: 05/22/25 06:30 Dose: Infused Documented By: Admin: 05/22/25 05:29 Dose: 999 mls/hr Documented By: SUSANNAH Lactated Ringer's (Lactated Ringers) 1,000 mls @ 1,000 mls/hr IV .Q1H ONE Stop: 05/22/25 07:01 Last Infusion: 05/22/25 08:11 Dose: Infused Documented By: Admin: 05/22/25 06:43 Dose: 1,000 mls/hr Documented By: JENELLE Ceftriaxone Sodium/Dextrose (Rocephin/D5w 1gm Iv Premix) 1 gm in 50 mls @ 100 mls/hr IV X1 ONE Stop: 05/22/25 06:53 Last Infusion: 05/22/25 07:27 Dose: Infused Documented By: Admin: 05/22/25 06:55 Dose: 100 mls/hr Documented By: SUSANNAH Piperacillin Sod/Tazobactam (Sod 4.5 gm/ Sodium Chloride) 100 mls @ 200 mls/hr IV X1 NR; Protocol Stop: 05/29/25 08:44 Ketorolac Tromethamine (Ketorolac Inj 30 Mg/Ml Vial) 30 mg IVP X1 ONE Stop: 05/22/25 06:03 Last Admin: 05/22/25 06:43 Dose: 30 mg Documented By: JENELLE Metoprolol Tartrate (Metoprolol Tartrate 25 Mg Tablet) 50 mg PO X1 ONE Stop: 05/22/25 06:03 Last Admin: 05/22/25 06:41 Dose: 50 mg Documented By: DT Morphine Sulfate (Morphine Sulf Inj 4 Mg/Ml Vial) 4 mg IVP X1 ONE Stop: 05/22/25 05:20 Last Admin: 05/22/25 05:30 Dose: 4 mg Documented By: SUSANNAH Ondansetron HCl (Ondansetron Inj 2 Mg/Ml Inj 2 Ml) 4 mg IVP X1 ONE; Protocol Stop: 05/22/25 05:19 Last Admin: 05/22/25 05:33 Dose: 4 mg Documented By: SUSANNAH Potassium Chloride (Potassium Chloride 10% 20 Meq/15 Ml Udc) 40 meq PO X1 ONE Stop: 05/22/25 06:02 Last Admin: 05/22/25 06:40 Dose: 40 meq Documented By: DT Treatment from me here included: IV fluid Morphine 4 mg IV Oral KCl 40 mEq Rocephin 1 g IV Consultations Consultation(s) initiated? (list below): Yes Consultation #1 (Physician, Specialty, Details): I discussed the case with our hospitalist and our urologist. About the presentation and exam and diagnostics and treatments here. And need of further care in the hospital. Will accept the patient. Diagnosis Differential diagnosis abdominal pain: acute appendicitis, calculus of kidney, constipation, diverticulitis, endometriosis, gastroenteritis, pancreatitis and small bowel obstruction Most likely diagnosis given after review of the tests above:: Right pyelonephritis Admission Indicated Admission indicated?: indicated Explain why admission is indicated or not indicated:: Right pyelonephritis Admission Request Was there a request for admission?: Yes Admission Attestation Admission request attestation: Discussed case with Hospitalist service regarding admission. Discussed patients ED course, exam findings, labs, and radiology results. Agreed to accept the patient for admission. Disposition Plan Disposition Plan: Admit Discharge Plan Plan Patient Disposition: Admit Acute Care w/in Hospital Problem List Clinical Impression: Pyelonephritis of right kidney
[2025-05-22] MEDS: PIPER/TAZO INJ 4.5 GM in SODIUM CHLORIDE 0.9% (POP) 100 ML IV (08:55)
[2025-05-22] MEDS: LOSARTAN POTASSIUM 25 MG TABLET PO (08:55)
[2025-05-22] MEDS: ONDANSETRON INJ 2 MG/ML INJ 2 ML 4 MG IV (08:55)
[2025-05-22 09:44] LABS: Sed Rate (ESR) 53 mm/hr (0-15)
--- NOTE | 2025-05-22 10:15 | ESHP_ITS ---
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 Patient again complaining of continued pain. Patient is known to the hospital and was previously in our hospital and discharged on 05/04/2025 for similar complaints and he was discharged on antibiotics for which he stated that he finished. Urology was consulted by the ED and stated that he would see the patient. Patient was placed on IV Zosyn. Will wait for further recommendations from urology. Patient's blood pressure was also elevated restart his home medications with improvement. In summary #Hx of staghorn calculi s/p renal stone ablation and stents #Pyelonephritis--> IV Zosyn and urology consulted, appreciate commendations #Hypertensive urgency---> continue amlodipine 10 daily, clonidine 0.5 mg twice daily, losartan 25 mg p.o. twice daily, IV labetalol as needed I have reviewed the note and agree with the resident's assessment & plan with exceptions as above. I have personally reviewed labs, imaging, home meds/prior records, examined the patient, formulated and discussed management plan with my attending Matti German PGY2 Disclaimer: Even though this this note was dictated by speech recognition and even though it was carefully revised there may still be minor errors in ingredient specialist due to voice recognition software. 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 Patient was discharged on Augmentin on 05/04/2025; patient states that he had completed all antibiotics. Symptoms had improved subsequently, but approximately 2 days ago began having significant bilateral flank pain, for which he came back to the ED. Has extensive history of UTIs with proteus mirabilis to at least 2019. ED course: Patient had CT scan in the ED, which showed right pyelonephritis, ureteritis, with cystitis. UA was positive for nitrates and leukocyte esterase, with 3+ bacteria, 208 WBCs, and 149 RBCs. Patient was given Rocephin 1 g IV, morphine 4 mg IV, 1 L NS bolus, 1 L LR 1 g ceftriaxone, and 4.5 g pip-tazo. Hospitalist and urologist (Dr. Morelos) were consulted, and patient was admitted for management of pyelonephritis. PMH: Spina bifida, recurrent UTIs, staghorn renal calculi PSH: Ureteral stents Allergies: hydrocodone, latex Social history: Marijuana use; no other substances; tox screen positive for THC Review of Systems Review of Systems Narrative Review of Systems: General: Denies fevers or chills HEENT: Denies congestion or sore throat Heart: Denies chest pain or palpitations Lungs: Denies shortness of breath or cough Abdomen: Denies diarrhea, nausea or vomiting, constipation, BRBPR, melena; endorses bilateral flank pain Genitourinary: Denies frequency, urgency, dysuria, hematuria Musculoskeletal: Denies joint pain, denies muscular pain Neurology: Denies numbness, tingling ROS otherwise negative except what is mentioned above. Exam Vital Signs Temp Pulse Resp BP Pulse Ox O2 Del Method 97.8 F 69 21 H 125/100 H 96 Room Air 05/22/25 08:01 05/22/25 08:55 05/22/25 08:39 05/22/25 08:55 05/22/25 08:01 05/22/25 08:01 Narrative Exam General: A/O x3, no acute distress, well-nourished, well-developed Eyes: PERRL, EOMI. Anicteric, vision grossly intact. Ears: No ear pain, no ear discharge, Hearing grossly intact. Nose: No nasal discharge. Mouth/Throat: Moist mucous membranes, no redness, no lesions. Neck: Neck supple, non-tender, no cervical lymphadenopathy. Lungs: Clear ELBA to auscultation and percussion, No accessory muscle use. Cardio: Normal S1/S2, regular rhythm, no murmurs, no JVD or carotid bruits. Abdomen: Soft, no palpable masses, peristalsis present, bilateral flank pain Extremities: Symmetrical, no significant deformities, no peripheral edema , non-tender, peripheral pulses presents. Skin: No rashes, no lesions, warm to touch. Neuro: No focal neurological deficits. Wheelchair-bound secondary to spina bifida. Psych: Cooperative, appropriate mood and effect. Results: Labs 05/22/25 04:46 05/22/25 04:46 Labs: Short CBC 05/22/25 Range/Units 04:46 WBC 5.9 (3.8-10.6) Thou/mm3 Hgb 10.1 L (13.5-16.0) g/dL Hct 33.0 L (41.0-53.0) % Plt Count 315 D (140-440) Thou/mm3 BMP 05/22/25 04:46 Sodium 138 Potassium 3.0 L Chloride 103 Carbon Dioxide 21.2 BUN 32 H Creatinine 2.0 H Glucose 100 Calcium 8.8 Liver Function 05/22/25 Range/Units 04:46 Total Bilirubin 0.9 (0.3-1.2) mg/dL AST 14 (0-34) U/L ALT < 7 L (10-49) U/L Alkaline Phosphatase 115 (46-116) U/L Albumin 4.5 (3.5-5.0) gm/dL Urine 05/22/25 Range/Units 03:50 Urine Color Lt Yellow (Lt Yel-Yel) Urine Clarity Turbid A (Clear/Hazy) Urine pH 8.0 H (5.0-7.0) Ur Specific [place] 1.007 (1.001-1.035) Urine Protein 2+ A (Neg - Trace) Urine Glucose (UA) Negative (Negative) Quality Measures Quality Measures none Medications Home Medications and Allergies Home Medications ?Medication ?Instructions ?Recorded ?Confirmed ?Type amlodipine 10 mg tablet 10 mg PO DAILY 06/06/2403/18 History clonidine HCl 0.1 mg tablet 0.1 mg PO BID 01/14/2503/18 History losartan 25 mg tablet 25 mg PO DAILY 01/14/2503/18 History ondansetron 4 mg disintegrating 4 mg PO Q6H PRN nausea and vomiting 04/03/25 05/01/25 History tablet Allergies Allergy/AdvReac Type Severity Reaction Status Date / Time hydrocodone (From [place]) Allergy Severe ITCH Verified 05/22/25 03:24 latex Allergy Severe RASH Verified 05/22/25 03:24 Visit Medications Acetaminophen (Acetaminophen 325 Mg Tablet) 650 mg PO Q6H PRN; Protocol PRN Reason: PAIN OR FEVER > 101 Stop: 06/21/25 08:32 Amlodipine Besylate (Amlodipine Besylate 5 Mg Tablet) 10 mg PO DAILY ARACELY Stop: 06/21/25 08:59 Last Admin: 05/22/25 08:53 Dose: 10 mg Clonidine (Clonidine Hcl 0.1 Mg Tablet) 0.1 mg PO BID ARACELY Stop: 06/21/25 08:59 Last Admin: 05/22/25 08:54 Dose: 0.1 mg Piperacillin/Tazobactam/Dextrose (Zosyn) 3.375 gm in 50 mls @ 12.5 mls/hr IV Q8HR ARACELY; Protocol Stop: 05/29/25 13:59 Labetalol HCl (Labetalol Inj 5 Mg/Ml Vial 20 Ml) 10 mg IVP Q4H PRN PRN Reason: SBP > 180 Stop: 06/21/25 08:44 Losartan Potassium (Losartan Potassium 25 Mg Tablet) 25 mg PO DAILY ARACELY Stop: 06/21/25 08:59 Last Admin: 05/22/25 08:55 Dose: 25 mg Morphine Sulfate (Morphine Sulf Inj 4 Mg/Ml Vial) 4 mg IVP Q4HR PRN PRN Reason: PAIN SCALE 6-10(Mod-Sev Stop: 05/27/25 08:32 Last Admin: 05/22/25 08:56 Dose: 4 mg Ondansetron HCl (Ondansetron Inj 2 Mg/Ml Inj 2 Ml) 4 mg IV Q6H PRN; Protocol PRN Reason: NAUSEA OR VOMITING Stop: 06/21/25 08:32 Last Admin: 05/22/25 08:55 Dose: 4 mg Pharmacy Consult (Pharmacy Renal Dose Adjustment 1 Ea) 1 each XX PRN PRN PRN Reason: CONSULT Stop: 06/21/25 08:37 Sennosides (Senna Tablet) 2 tab PO BID PRN; Protocol PRN Reason: CONSTIPATION Stop: 06/21/25 08:32 Discontinued Medications Clonidine (Clonidine Hcl 0.1 Mg Tablet) 0.2 mg PO X1 ONE Stop: 05/22/25 06:03 Last Admin: 05/22/25 06:42 Dose: 0.2 mg Sodium Chloride (Ns) 1,000 mls @ 999 mls/hr IV .Q1H1M ONE Stop: 05/22/25 06:18 Last Infusion: 05/22/25 06:30 Dose: Infused Lactated Ringer's (Lactated Ringers) 1,000 mls @ 1,000 mls/hr IV .Q1H ONE Stop: 05/22/25 07:01 Last Infusion: 05/22/25 08:11 Dose: Infused Ceftriaxone Sodium/Dextrose (Rocephin/D5w 1gm Iv Premix) 1 gm in 50 mls @ 100 mls/hr IV X1 ONE Stop: 05/22/25 06:53 Last Infusion: 05/22/25 07:27 Dose: Infused Piperacillin Sod/Tazobactam (Sod 4.5 gm/ Sodium Chloride) 100 mls @ 200 mls/hr IV X1 NR; Protocol Stop: 05/29/25 08:44 Piperacillin Sod/Tazobactam (Sod 4.5 gm/ Sodium Chloride) 100 mls @ 200 mls/hr IV X1 ONE; Protocol Stop: 05/22/25 09:14 Last Infusion: 05/22/25 09:25 Dose: Infused Ketorolac Tromethamine (Ketorolac Inj 30 Mg/Ml Vial) 30 mg IVP X1 ONE Stop: 05/22/25 06:03 Last Admin: 05/22/25 06:43 Dose: 30 mg Metoprolol Tartrate (Metoprolol Tartrate 25 Mg Tablet) 50 mg PO X1 ONE Stop: 05/22/25 06:03 Last Admin: 05/22/25 06:41 Dose: 50 mg Morphine Sulfate (Morphine Sulf Inj 4 Mg/Ml Vial) 4 mg IVP X1 ONE Stop: 05/22/25 05:20 Last Admin: 05/22/25 05:30 Dose: 4 mg Ondansetron HCl (Ondansetron Inj 2 Mg/Ml Inj 2 Ml) 4 mg IVP X1 ONE; Protocol Stop: 05/22/25 05:19 Last Admin: 05/22/25 05:33 Dose: 4 mg Potassium Chloride (Potassium Chloride 10% 20 Meq/15 Ml Udc) 40 meq PO X1 ONE Stop: 05/22/25 06:02 Last Admin: 05/22/25 06:40 Dose: 40 meq Assessment & Plan Plan Patient is a 35-year-old wheelchair-bound male with past medical history of spina bifida, 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 Patient admitted for management of acute pyelonephritis. #Acute pyelonephritis #UTI likely 2/2 to gram negative organisms #History of previous ablations and stents on previous admissions Patient symptoms (bilateral flank pain) and history (recurrent UTIs with recent discharge from hospital with known source of staghorn calculi), as well as CT A/P (05/22/2025) confirm R pyelonephritis, R ureteritis, and cystitis. WBC on 05/22/25 5.9. Urinalysis positive for nitrates and leukocyte esterase, with 3+ bacteria, 208 WBCs, and 149 RBCs. Plan: Pip-tazo 3.375g q8H IV for empiric treatment Urine and blood cultures collected; awaiting results Urology consulted (Dr. Morelos), appreciate recommendations #Hypertensive urgency BP was 202/133 on 05/22/2025 at 6:40 AM; this meets the criteria for hypertensive urgency. Less likely hypertensive emergency as only potential endorgan damage (TRINI) is better explained by pyelonephritis on CT abdomen pelvis. Plan: Patient restarted on home amlodipine 10 daily and clonidine 0.1 twice daily; also started on amlodipine 10 daily Labetalol 10 PRN for SBP > 180 Monitor BP # Microcytic anemia Hgb in between 8 and 10 (MCV between 70 and 80) on previous admissions going back to 2023. Differential includes anemia of chronic disease (recurrent UTI), iron deficiency anemia (iron level 24 on 06/14/2024, ferritin 2 on 12/27/2023). 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 Adkins, and senior resident, Dr. Castano. 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 Patient recently had ureteral stents placed about 2 weeks ago. Patient has had frequent urinary infections with Proteus mirabilis due to the staghorn calculi. Will cover with IV Zosyn at this time. Patient denies any fevers. He reports significant pain in his abdomen. Patient states that he takes tramadol at home. Will continue with morphine as needed. Urology consulted from ED. Will admit patient to med/surge for further workup and medical management of pyelonephritis secondary to staghorn calculi
--- NOTE | 2025-05-22 11:42 | PC.SS ---
This RUBBER WORKER cad intern went to patient bedside to complete initial assessment. Patient was able to participate, he was able to confirm his home address [address] and his telephone number [phone]. Patient states his girlfriend Kimmy Mazariegos is his [facility] provider and will be transporting him home once he is ready for DC to home. Patient uses w/chair at home and is not in need of any other DME at the moment. Patient states he has been having a hard time with catheter orders as the wrong size was ordered, and needs help getting it ordered and delivers to him.Patient said he does not have an advance directive or POA in place dtates his emergency contact is his mother Yesenia Michael and telephone number is [phone]. Patient is Full Code, uses [facility] pharmacy on [address] and see Dr. Vandana Sears at [facility] in [place].
[2025-05-22] MEDS: MORPHINE SULF INJ 4 MG/ML VIAL 2 MG IVP ×3 (14:27→22:32)
[2025-05-22] MEDS: PIPER/TAZO 3.375 GM PREMIX 3.375 GM/50 ML BAG IV ×2 (14:28→22:10)
[2025-05-23] VITALS (11 sets, daily range): BP systolic 112–127; BP diastolic 81–94; PULSE 67–86; RESP 16–99; TEMP 36.2–37.2; O2SAT 95–100
[2025-05-23] MEDS: MORPHINE SULF INJ 4 MG/ML VIAL 2 MG IVP ×5 (02:31→21:37)
[2025-05-23] MEDS: PIPER/TAZO 3.375 GM PREMIX 3.375 GM/50 ML BAG IV ×3 (06:24→21:37)
[2025-05-23 06:26] LABS: Basophils # (Auto) 0.0 Thou/mm3 (0.0-0.2); Basophils % (Auto) 0 % (0-2.5); Eosinophils # (Auto) 0.1 Thou/mm3 (0.0-0.5); Eosinophils % (Auto) 2 % (0-10); Hematocrit 29.9 % (41.0-53.0); Hemoglobin 9.2 g/dL (13.5-16.0); Immature Granulocytes Auto 0.02 Thou/mm3 (0.00-0.00); Lymphocytes # (Auto) 0.6 Thou/mm3 (1.0-4.8); Lymphocytes % (Auto) 7 % (10-50); Mean Corpuscular HGB Conc 30.8 g/dl (31.0-37.0); Mean Corpuscular Hemoglobin 23.7 pg (25.0-35.0); Mean Corpuscular Volume 77 fL (80-100); Monocytes # (Auto) 0.4 Thou/mm3 (0.0-0.8); Monocytes % (Auto) 5 % (0-12); Neutrophils # (Auto) 7.1 Thou/mm3 (1.8-7.7); Neutrophils % (Auto) 86 % (37-80); Nucleated Red Blood Cell # 0.00 Thou/mm3 (0.00-0.00); Nucleated Red Blood Cell % 0 /100 WBC (0); Platelet Count 301 Thou/mm3 (140-440); RDW Standard Deviation 59.4 fL (35.1-43.9); Red Blood Count 3.88 Miln/mm3 (4.50-5.90); White Blood Count 8.3 Thou/mm3 (3.8-10.6)
[2025-05-23 06:35] LABS: INR 1.0 (0.9-1.3); Prothrombin Time 10.2 Seconds (9.0-12.2)
[2025-05-23 07:11] LABS: Alanine Aminotransferase 8 U/L (10-49); Albumin, Serum 3.7 gm/dL (3.5-5.0); Albumin/Globulin Ratio 1.8 (1.2-2.2); Alkaline Phosphatase 95 U/L (46-116); Anion Gap 11 (7-16); Aspartate Amino Transferase 20 U/L (0-34); BUN/Creatinine Ratio 15 Ratio (12-20); Bilirubin,Total 0.6 mg/dL (0.3-1.2); Blood Urea Nitrogen 34 mg/dL (9-23); Calcium 8.4 mg/dL (8.3-10.6); Calcium (Corrected) 8.6 mg/dL (8.5-10.1); Carbon Dioxide 18.6 mMol/L (20.0-31.0); Cardiac Risk Estimate 3.0 RATIO (4.0-6.7); Chloride 108 mMol/L (98-107); Cholesterol 148 mg/dL (132-200); Creatinine (Component) 2.2 mg/dL (0.6-1.3); Estimated Creatinine Clearance 28.6 mL/min (>60); Globulin 2.1 gm/dL (2.3-3.5); Glucose 87 mg/dL (74-106); HDL Cholesterol 50 mg/dL (40-60); LDL Cholesterol,Calculated 70 mg/dL (0-130); Magnesium 2.0 mg/dL (1.6-2.6); Osmolality,Calculated 282 (275-295); Phosphorous 2.8 mg/dL (2.4-5.1); Potassium 4.0 mMol/L (3.4-5.1); Sodium 138 mMol/L (136-145); Total Protein 5.8 gm/dL (5.7-8.2); Triglycerides 140 mg/dL (30-150); eGFR 39 See Note
[2025-05-23] MEDS: LOSARTAN POTASSIUM 25 MG TABLET PO (09:56)
--- NOTE | 2025-05-23 15:19 | ESPR_ITS ---
<Statement entered by Matti German MD - 05/23/25 15:39> I have reviewed the note and agree with the resident's assessment & plan with exceptions as below. I have personally reviewed labs, imaging, home meds/prior records, examined the patient, formulated and discussed management plan with my attending Patient was seen and examined at bedside morning. No acute overnight events. Patient still complaining of significant pain therefore switch patient's morphine to tramadol as he stated that the morphine was giving him some itchiness, but afterwards still had uncontrolled pain and again placed patient back on morphine. Otherwise no spikes in fevers, blood pressure noted well- controlled and WBCs within normal limits. Possible discharge in the next 24 to 48 hours, pending urology recommendations. Matti German PGY2 Disclaimer: Even though this this note was dictated by speech recognition and even though it was carefully revised there may still be minor errors in geological technician due to voice recognition software. Documentation for date of: 05/23/25 Subjective Subjective Interval history: Patient was seen and examined at bedside; still endorses significant pain. Blood culture shows no growth after 24h. Exam Vital Signs Temp Pulse Resp BP Pulse Ox O2 Del Method 98.0 F 82 16 127/94 H 96 Room Air 05/23/25 12:00 05/23/25 12:00 05/23/25 12:00 05/23/25 12:00 05/23/25 12:00 05/23/25 12:00 Narrative Exam General: A/O x3, no acute distress, well-nourished, well-developed Eyes: PERRL, EOMI. Anicteric, vision grossly intact. Ears: No ear pain, no ear discharge, Hearing grossly intact. Nose: No nasal discharge. Mouth/Throat: Moist mucous membranes, no redness, no lesions. Neck: Neck supple, non-tender, no cervical lymphadenopathy. Lungs: Clear ELBA to auscultation and percussion, No accessory muscle use. Cardio: Normal S1/S2, regular rhythm, no murmurs, no JVD or carotid bruits. Abdomen: Soft, no palpable masses, peristalsis present, bilateral flank pain Extremities: Symmetrical, no significant deformities, no peripheral edema , non-tender, peripheral pulses presents. Skin: No rashes, no lesions, warm to touch. Neuro: No focal neurological deficits. Wheelchair-bound secondary to spina bifida. Psych: Cooperative, appropriate mood and effect. Objective Labs 05/24/25 04:48 05/24/25 04:48 Labs: Laboratory Results - last 24 hr 05/23/25 04:42 WBC 8.3 D RBC 3.88 L Hgb 9.2 L Hct 29.9 L MCV 77 L MCH 23.7 L MCHC 30.8 L RDW Std Deviation 59.4 H Plt Count 301 Neut % (Auto) 86 H Lymph % (Auto) 7 L [place] % (Auto) 5 Eos % (Auto) 2 Baso % (Auto) 0 Neut # (Auto) 7.1 Lymph # (Auto) 0.6 L [place] # (Auto) 0.4 Eos # (Auto) 0.1 Baso # (Auto) 0.0 Immature Gran # (Auto) 0.02 H Absolute Nucleated RBC 0.00 Immature Gran % 0 Nucleated RBC % 0 PT 10.2 INR 1.0 Sodium 138 Potassium 4.0 D Chloride 108 H Carbon Dioxide 18.6 L Anion Gap 11 BUN 34 H Creatinine 2.2 H Estim Creat Clear Calc 28.6 L eGFR 39 L BUN/Creatinine Ratio 15 Glucose 87 Calculated Osmolality 282 Calcium 8.4 Corrected Calcium 8.6 Phosphorus 2.8 Magnesium 2.0 Total Bilirubin 0.6 AST 20 ALT 8 L Alkaline Phosphatase 95 D Total Protein 5.8 Albumin 3.7 D Globulin 2.1 L Albumin/Globulin Ratio 1.8 Triglycerides 140 Cholesterol 148 LDL Cholesterol, Calc 70 HDL Cholesterol 50 Cholesterol/HDL Ratio 3.0 L Quality Measures Quality Measures none Assessment & Plan Assessment Current Active Medications: Generic Name Dose Route Start Last Admin Trade Name Gracie PRN Reason Stop Dose Admin Acetaminophen 650 mg 05/22/25 08:33 Acetaminophen 325 Mg Tablet PO 06/21/25 08:32 Q6H PRN PAIN OR FEVER > 101 Protocol Amlodipine Besylate 10 mg 05/22/25 09:00 05/23/25 09:56 Amlodipine Besylate 5 Mg Tablet PO 06/21/25 08:59 10 mg DAILY ARACELY Administration Clonidine 0.1 mg 05/22/25 09:00 05/23/25 09:57 Clonidine Hcl 0.1 Mg Tablet PO 06/21/25 08:59 0.1 mg BID ARACELY Administration Piperacillin/Tazobactam/Dextrose 3.375 gm in 50 mls @ 12.5 mls/hr 05/22/25 14:00 05/23/25 13:07 Zosyn IV 05/29/25 13:59 12.5 mls/hr Q8HR ARACELY Administration Protocol Labetalol HCl 10 mg 05/22/25 08:36 Labetalol Inj 5 Mg/Ml Vial 20 Ml IVP 06/21/25 08:44 Q4H PRN SBP > 180 Losartan Potassium 25 mg 05/22/25 09:00 05/23/25 09:56 Losartan Potassium 25 Mg Tablet PO 06/21/25 08:59 25 mg DAILY ARACELY Administration Morphine Sulfate 2 mg 05/23/25 12:40 05/23/25 13:07 Morphine Sulf Inj 4 Mg/Ml Vial IVP 05/28/25 12:39 2 mg Q4HR PRN Administration PAIN 7-10 Ondansetron HCl 4 mg 05/22/25 08:33 05/22/25 08:55 Ondansetron Inj 2 Mg/Ml Inj 2 Ml IV 06/21/25 08:32 4 mg Q6H PRN Administration NAUSEA OR VOMITING Protocol Pharmacy Consult 1 each 05/22/25 08:38 Pharmacy Renal Dose Adjustment 1 Ea XX 06/21/25 08:37 PRN PRN CONSULT Sennosides 2 tab 05/22/25 08:33 Senna Tablet PO 06/21/25 08:32 BID PRN CONSTIPATION Protocol Tramadol HCl 50 mg 05/23/25 10:12 05/23/25 10:41 Tramadol Hcl 50 Mg Tablet PO 05/28/25 10:11 50 mg Q6HR PRN Administration PAIN Protocol Plan Patient is a 35-year-old wheelchair-bound male with past medical history of spina bifida, 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 Patient admitted on 05/22/25 for management of acute pyelonephritis. #Acute pyelonephritis #UTI likely 2/2 to gram negative organisms #History of previous ablations and stents on previous admissions Patient symptoms (bilateral flank pain) and history (recurrent UTIs with recent discharge from hospital with known source of staghorn calculi), as well as CT A/P (05/22/2025) confirm R pyelonephritis, R ureteritis, and cystitis. WBC on 05/22/25 5.9. Urinalysis positive for nitrates and leukocyte esterase, with 3+ bacteria, 208 WBCs, and 149 RBCs. Blood cultures showed no growth after 24 hours. WBC on 05/23/25 8.3. Plan: Pip-tazo 3.375g q8H IV for empiric treatment Urine and blood cultures collected; awaiting results Urology consulted (Dr. Morelos), appreciate recommendations Morphine 2mg q4h PRN, tramadol 50 q6 PRN for pain #Hypertensive urgency BP was 202/133 on 05/22/2025 at 6:40 AM; this meets the criteria for hypertensive urgency. Less likely hypertensive emergency as only potential endorgan damage (TRINI) is better explained by pyelonephritis on CT abdomen pelvis. Plan: Patient started on amlodipine 10 daily, clonidine 0.1 twice daily, losartan 25 daily Labetalol 10 PRN for SBP > 180 Monitor BP # Microcytic anemia Hgb in between 8 and 10 (MCV between 70 and 80) on previous admissions going back to 2023. Differential includes anemia of chronic disease (recurrent UTI), iron deficiency anemia (iron level 24 on 06/14/2024, ferritin 2 on 12/27/2023). Hgb on this admission 10.1 (05/22/2025) Plan: Will trend as part of CBCs #SUPER[employer] shunt Follow up outpatient #Spina bifida Follow-up outpatient Disposition: Med-Surg DVT prophylaxis: SCDs GI prophylaxis: N/A Diet: Regular Lines: PIV CODE STATUS: Full code This case was discussed with my attending physician, Dr. Adkins, and senior resident, Dr. Castano. All Estevez MD-PhD, PGY1 Attending Provider Attestation/Addendum I, Alecia Adkins, DO, attest that I was physically present for the davila portions of the service and evaluated the patient with the resident and I reviewed and discussed the case with the resident and agree with the resident's findings and plans of care as documented above Patient seen and eval this a.m. He continues to complain of pain in his left flank radiating to his anterior abdomen. He denies any fevers and chills at this time. Pending urine cultures at this time. Blood cultures are no growth to date as well. Anticipate discharge in the next 24 hours once cultures are finalized. Will continue with pain control as needed.
[2025-05-24] VITALS (7 sets, daily range): BP systolic 106–121; BP diastolic 76–93; PULSE 75–84; RESP 17–97; TEMP 36.1–37; O2SAT 96–100
[2025-05-24] MEDS: MORPHINE SULF INJ 4 MG/ML VIAL 2 MG IVP ×2 (01:47→06:21)
[2025-05-24] MEDS: PIPER/TAZO 3.375 GM PREMIX 3.375 GM/50 ML BAG IV (06:21)
[2025-05-24 06:40] LABS: Basophils # (Auto) 0.0 Thou/mm3 (0.0-0.2); Basophils % (Auto) 0 % (0-2.5); Eosinophils # (Auto) 0.1 Thou/mm3 (0.0-0.5); Eosinophils % (Auto) 1 % (0-10); Hematocrit 26.7 % (41.0-53.0); Immature Granulocytes Auto 0.03 Thou/mm3 (0.00-0.00); Lymphocytes # (Auto) 0.4 Thou/mm3 (1.0-4.8); Lymphocytes % (Auto) 7 % (10-50); Mean Corpuscular HGB Conc 30.7 g/dl (31.0-37.0); Mean Corpuscular Hemoglobin 23.7 pg (25.0-35.0); Mean Corpuscular Volume 77 fL (80-100); Monocytes # (Auto) 0.6 Thou/mm3 (0.0-0.8); Monocytes % (Auto) 8 % (0-12); Neutrophils # (Auto) 5.6 Thou/mm3 (1.8-7.7); Neutrophils % (Auto) 83 % (37-80); Nucleated Red Blood Cell # 0.00 Thou/mm3 (0.00-0.00); Nucleated Red Blood Cell % 0 /100 WBC (0); Platelet Count 276 Thou/mm3 (140-440); RDW Standard Deviation 59.3 fL (35.1-43.9); Red Blood Count 3.46 Miln/mm3 (4.50-5.90); White Blood Count 6.8 Thou/mm3 (3.8-10.6)
[2025-05-24 06:49] LABS: Alanine Aminotransferase 24 U/L (10-49); Albumin, Serum 3.5 gm/dL (3.5-5.0); Albumin/Globulin Ratio 1.6 (1.2-2.2); Alkaline Phosphatase 104 U/L (46-116); Anion Gap 11 (7-16); Aspartate Amino Transferase 42 U/L (0-34); BUN/Creatinine Ratio 17 Ratio (12-20); Bilirubin,Total 0.6 mg/dL (0.3-1.2); Blood Urea Nitrogen 35 mg/dL (9-23); Calcium 8.4 mg/dL (8.3-10.6); Calcium (Corrected) 8.8 mg/dL (8.5-10.1); Carbon Dioxide 18.8 mMol/L (20.0-31.0); Chloride 108 mMol/L (98-107); Creatinine (Component) 2.1 mg/dL (0.6-1.3); Estimated Creatinine Clearance 29.9 mL/min (>60); Globulin 2.2 gm/dL (2.3-3.5); Glucose 107 mg/dL (74-106); Magnesium 2.0 mg/dL (1.6-2.6); Osmolality,Calculated 283 (275-295); Phosphorous 3.5 mg/dL (2.4-5.1); Potassium 3.9 mMol/L (3.4-5.1); Sodium 138 mMol/L (136-145); Total Protein 5.7 gm/dL (5.7-8.2); eGFR 41 See Note
[2025-05-24 07:20] LABS: Hemoglobin 8.2 g/dL (13.5-16.0)
--- NOTE | 2025-05-24 09:30 | PD.RESPRO ---
Documentation for date of: 05/24/25 Exam Vital Signs Temp Pulse Resp BP Pulse Ox O2 Del Method 98.6 F 75 19 112/87 H 98 Room Air 05/24/25 08:00 05/24/25 08:00 05/24/25 08:00 05/24/25 08:00 05/24/25 08:00 05/24/25 08:00 Objective Labs 05/24/25 04:48 05/24/25 04:48 Labs: Laboratory Results - last 24 hr 05/24/25 04:48 WBC 6.8 RBC 3.46 L Hgb 8.2 L Hct 26.7 L MCV 77 L MCH 23.7 L MCHC 30.7 L RDW Std Deviation 59.3 H Plt Count 276 Neut % (Auto) 83 H Lymph % (Auto) 7 L [place] % (Auto) 8 Eos % (Auto) 1 Baso % (Auto) 0 Neut # (Auto) 5.6 Lymph # (Auto) 0.4 L [place] # (Auto) 0.6 Eos # (Auto) 0.1 Baso # (Auto) 0.0 Immature Gran # (Auto) 0.03 H Absolute Nucleated RBC 0.00 Immature Gran % 0 Nucleated RBC % 0 Sodium 138 Potassium 3.9 Chloride 108 H Carbon Dioxide 18.8 L Anion Gap 11 BUN 35 H Creatinine 2.1 H Estim Creat Clear Calc 29.9 L eGFR 41 L BUN/Creatinine Ratio 17 Glucose 107 H Calculated Osmolality 283 Calcium 8.4 Corrected Calcium 8.8 Phosphorus 3.5 Magnesium 2.0 Total Bilirubin 0.6 AST 42 H ALT 24 Alkaline Phosphatase 104 Total Protein 5.7 Albumin 3.5 Globulin 2.2 L Albumin/Globulin Ratio 1.6 Quality Measures Quality Measures none Assessment & Plan Assessment Current Active Medications: Generic Name Dose Route Start Last Admin Trade Name Freq PRN Reason Stop Dose Admin Acetaminophen 650 mg 05/22/25 08:33 Acetaminophen 325 Mg Tablet PO 06/21/25 08:32 Q6H PRN PAIN OR FEVER > 101 Protocol Amlodipine Besylate 10 mg 05/22/25 09:00 05/23/25 09:56 Amlodipine Besylate 5 Mg Tablet PO 06/21/25 08:59 10 mg DAILY ARACELY Administration Clonidine 0.1 mg 05/22/25 09:00 05/23/25 21:37 Clonidine Hcl 0.1 Mg Tablet PO 06/21/25 08:59 0.1 mg BID ARACELY Administration Piperacillin/Tazobactam/Dextrose 3.375 gm in 50 mls @ 12.5 mls/hr 05/22/25 14:00 05/24/25 06:21 Zosyn IV 05/29/25 13:59 12.5 mls/hr Q8HR ARACELY Administration Protocol Labetalol HCl 10 mg 05/22/25 08:36 Labetalol Inj 5 Mg/Ml Vial 20 Ml IVP 06/21/25 08:44 Q4H PRN SBP > 180 Losartan Potassium 25 mg 05/22/25 09:00 05/23/25 09:56 Losartan Potassium 25 Mg Tablet PO 06/21/25 08:59 25 mg DAILY ARACELY Administration Morphine Sulfate 2 mg 05/23/25 12:40 05/24/25 06:21 Morphine Sulf Inj 4 Mg/Ml Vial IVP 05/28/25 12:39 2 mg Q4HR PRN Administration PAIN 7-10 Ondansetron HCl 4 mg 05/22/25 08:33 05/22/25 08:55 Ondansetron Inj 2 Mg/Ml Inj 2 Ml IV 06/21/25 08:32 4 mg Q6H PRN Administration NAUSEA OR VOMITING Protocol Pantoprazole Sodium 40 mg 05/24/25 09:00 Pantoprazole 40 Mg Tablet PO 06/23/25 08:59 BID ARACELY Pharmacy Consult 1 each 05/22/25 08:38 Pharmacy Renal Dose Adjustment 1 Ea XX 06/21/25 08:37 PRN PRN CONSULT Sennosides 2 tab 05/22/25 08:33 Senna Tablet PO 06/21/25 08:32 BID PRN CONSTIPATION Protocol Tramadol HCl 50 mg 05/23/25 10:12 05/23/25 10:41 Tramadol Hcl 50 Mg Tablet PO 05/28/25 10:11 50 mg Q6HR PRN Administration PAIN Protocol
[2025-05-24] MEDS: LOSARTAN POTASSIUM 25 MG TABLET PO (09:31)
[2025-05-24] MEDS: PANTOPRAZOLE 40 MG TABLET PO (09:31)
--- NOTE | 2025-05-24 10:12 | PC.NURSE ---
Notified Dr. Miranda patient wants to leave [place]. He will come to patients bed side and talk to patient.
--- NOTE | 2025-05-24 11:12 | ESDS_ITS ---
<Statement entered by Alecia Adkins DO - 05/24/25 20:28> I, Alecia Adkins DO, attest that I was physically present for the davila portions of the service and evaluated the patient with the resident and I reviewed and discussed the case with the resident and agree with the resident's findings and plans of care as documented above Planned Discharge Date 05/24/25 DS: Providers Provider Date of admission: 05/22/25 08:33 Primary care physician: Vandana Sears NP Admitting Provider: Alecia Adkins DO Attending Provider on Admission: Alecia Adkins DO Consults: 05/22/25 07:56 Consult to Urology Stat Comment: kidney stones and pyelonephritis Consulting Provider: Gisel Morelos Attending Provider on DC: Alecia Adkins DO Discharging Provider: Alecia Adkins DO DS: Diagnosis Problem List Completed Was Problem List Reviewed/Reconciled?: Yes Hospital Course Hospital Course Hospital course: Hospital Course: Patient is a 35-year-old male with past medical history of spina bifida, 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 Patient was discharged on 05/04/25 from previous admission at [facility] for pyelonephritis on Augmentin, which he said that he finished. He began having flank pain 2 days before admission. Patient placed on pip-tazo and home BP meds restarted; blood and urine cultures taken. On 05/23, pain regimen optimized, and waiting on culture results. On 05/24, cultures came back positive for Proteus mirabilis; patient switched to cefpodoxime due to sensitivities, and was stable for discharge. Discharge Instructions: Recommend to take antibiotic cefpodoxime for 10 more days, recommend to follow- up with your urologist Dr. Morelos within 1 week. Continue home blood pressure medications, take tramadol as needed for pain. Follow up with Primary care physician with labs within 3-5 days of discharge. If symptoms persist or worsen, return to the Emergency Department. 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 Quresh PGY3 Status at Discharge Functional status at discharge: wheelchair bound Overall status at discharge: patient is progressing back to baseline Time Spent with Patient Time attestation: Total time spent providing and/or coordinating discharge services: Time spent: Greater than 30 minutes Exam Vital Signs Temp Pulse Resp BP Pulse Ox O2 Del Method 98.6 F 77 18 112/87 H 98 Room Air 05/24/25 08:00 05/24/25 09:35 05/24/25 09:35 05/24/25 09:32 05/24/25 08:00 05/24/25 08:00 Narrative Exam General: A/O x3, no acute distress, well-nourished, well-developed Eyes: PERRL, EOMI. Anicteric, vision grossly intact. Ears: No ear pain, no ear discharge, Hearing grossly intact. Nose: No nasal discharge. Mouth/Throat: Moist mucous membranes, no redness, no lesions. Neck: Neck supple, non-tender, no cervical lymphadenopathy. Lungs: Clear ELBA to auscultation and percussion, No accessory muscle use. Cardio: Normal S1/S2, regular rhythm, no murmurs, no JVD or carotid bruits. Abdomen: Soft, no palpable masses, peristalsis present, bilateral flank pain resolved Extremities: Symmetrical, no significant deformities, no peripheral edema , non-tender, peripheral pulses presents. Skin: No rashes, no lesions, warm to touch. Neuro: No focal neurological deficits. Wheelchair-bound secondary to spina bifida. Psych: Cooperative, appropriate mood and effect. Discharge Plan Plan Patient Disposition: HOME (Self Care) Care Plan Goals: Recommend to take antibiotic cefpodoxime for 10 more days, recommend to follow- up with your urologist Dr. Morelos within 1 week. Continue home blood pressure medications, take tramadol as needed for pain. Follow up with Primary care physician with labs within 3-5 days of discharge. If symptoms persist or worsen, return to the Emergency Department. Prescriptions/Referrals Prescriptions/Med Rec: New sennosides [Senna Lax] 8.6 mg Tablet 30 mg PO BID PRN (Reason: Constipation) 30 Days Qty: 60 0RF tramadol 50 mg Tablet 50 mg PO Q6HR PRN (Reason: Pain) 3 Days Qty: 8 0RF pantoprazole 40 mg Tablet,Delayed Release (Dr/Ec) 40 mg PO BID 30 Days Qty: 60 0RF cefpodoxime 200 mg tablet 200 mg PO BID Qty: 20 0RF Rx Instructions: must administer with a meal/food Continued amlodipine 10 mg tablet 10 mg PO DAILY Patient Comments: TAKE 1 TABLET BY MOUTH EVERY DAY clonidine HCl 0.1 mg tablet 0.1 mg PO BID Patient Comments: TAKE 1 TABLET BY MOUTH TWICE A DAY Referrals: Gisel Morelos MD [Physician, Urology] Vandana Sears NP [Primary Care Provider] Patient/Caregiver Discharge Instructions Education Materials: Urinary Tract Infections in Men, Understanding Urinary Tract ..., Kidney Failure Healthcare Team, Kidney Failure Self Care, Medicine for Pain Print Language: Guatemalan Stand Alone Forms: Leyla Award Info., Patient Portal Info Letter Discharge Order Discharge Orders: Discharge (Routine); Ordered 05/24/25 Ordered By: Jairo Miranda Quality Discharge Quality Measures none
== END 2025-05-24 11:50 | disposition home or self-care (01) | DRG 463 ==
LOC: SERX 08:17 → SERHOLD 08:57 → S3NX 12:39
PROVIDERS: Physician Assistant; Student in an Organized Health Care Education/Training Program; Admitting Provider Internal Medicine; Emergency Provider Emergency Medicine; PCP Nurse Practitioner Family; Visit Provider Internal Medicine
DX: N10 Acute pyelonephritis (principal); Q05.9 Spina bifida, unspecified; Z99.3 Dependence on wheelchair; Z87.440 Personal history of urinary (tract) infections; I10 Essential (primary) hypertension; Z87.442 Personal history of urinary calculi; N20.0 Calculus of kidney; I16.0 Hypertensive urgency; D50.9 Iron deficiency anemia, unspecified; Z98.2 Presence of cerebrospinal fluid drainage device
CPT/HCPCS: 36415; 74176; 80053; 80061; 81001; 83605; 83690; 83735; 84100; 84145; 85025; 85610; 85652; 86140; 87040; 87077; 87081; 87086; 87186; 96361; 96365; 96375; 96376; 99284; J0696; J1885; J2270; J2405; J2543; J7030; J7120; A9270

== ENCOUNTER 2025-06-11 00:40 | Inpatient (IN) | payer MEDICAID, SELFPAY ==
[2025-06-11] VITALS (20 sets, daily range): BP systolic 135–206; BP diastolic 90–147; PULSE 85–119; RESP 16–30; TEMP 36.2–37; O2SAT 96–100
--- NOTE | 2025-06-11 01:04 | PD.EDRME ---
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 cultures came back positive for Proteus mirabilis; patient switched to cefpodoxime due to sensitivities and he finished the course of abx however he returns for recurrent flank pain. I briefly performed a screening evaluation to initiate work-up and expedite care. Complete history, physical exam, and plan of care is deferred to the provider in the main ED. Exam: Head: Normocephalic, atraumatic. Respiratory: Normal effort. No respiratory distress or accessory muscle use. Neuro: Speech normal. Skin: Warm, dry, normal color. Psych: Pleasant. Normal affect. Cooperative. Clinical Impression: Rule out recurrent pyelonephritis
--- NOTE | 2025-06-11 01:06 | XR_ITS ---
Examination: CT abdomen and pelvis without contrast. Coronal 3-D reconstructions. Sagittal 2-D reconstructions. Date and time of exam: June 11, 2025, 0210 hours, comparison May 22, 2025 INDICATIONS: Kidney pain flank pain blood in the urine today, periumbilical pain, extensive bilateral staghorn calculi bilateral ureteral stents on CT study May 22, 2025 CTDI: vol (mGy): 5.13 DLP: (mGycm): 241 Technique: Axial images of the abdomen have been obtained, 3 mm slice thickness Intravenous contrast material has not been administered. Low dose protocols were performed. One or more of the following dose reduction techniques were used; automated exposure control, adjustment of the mA and/or KV according to patient size, use of iterative reconstruction technique. 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
--- NOTE | 2025-06-11 01:18 | EDNOTE_ITS ---
ED Male Genitalurinary RME/HPI General Chief complaint: Urogenital-Male Stated complaint: KIDNEY PAIN, BLOOD IN URINE Time Seen by Provider: 06/11/25 01:18 Arrival date/time: 06/11/25 00:40 RME / HPI RME / HPI Narrative: Patient is a 35-year-old male with past medical history of spina bifida, ASSIGNMENT AGENT shunt, staghorn renal calculi with recurrent UTIs s/p stone ablation and ureteral stents was admitted to the hospital on 05/22/25 due to pyelonephritis. cultures came back positive for Proteus mirabilis; patient switched to cefpodoxime due to sensitivities and he finished the course of abx however he returns for recurrent flank pain. I briefly performed a screening evaluation to initiate work-up and expedite care. Complete history, physical exam, and plan of care is deferred to the provider in the main ED. Dr. Arceo?s Main ED Evaluation: 35yo male with a history of spina bifida, ASSIGNMENT AGENT shunt, staghorn renal calculi with recurrent UTIs s/p stone ablation and ureteral stents presents to the ED for complaints of bilateral flank pain and hematuria x 2-3 days. Patient states he recently finished his course of antibiotics for pyelonephritis. He does self cath at home. Patient denies any fe mirian, chills, N/V, or any other associated symptoms. Related Data Home Medications ?Medication ?Instructions ?Recorded ?Confirmed amlodipine 10 mg tablet 10 mg PO DAILY 06/06/2404/25 clonidine HCl 0.1 mg tablet 0.1 mg PO BID 01/14/25 Previous Rx's ?Medication ?Instructions ?Recorded cefpodoxime 200 mg tablet 200 mg PO BID #20 tabs 05/24 pantoprazole 40 mg tablet,delayed 40 mg PO BID 30 days #60 tabs 05/24/25 release sennosides 8.6 mg tablet (Senna 30 mg (3.4884 x 8.6 mg ) PO BID PRN 05/24/25 Lax) Constipation 30 days #60 tab s Allergies Allergy/AdvReac Type Severity Reaction Status Date / Time hydrocodone (From [place]) Allergy Severe ITCH Verified 06/11/25 00:41 latex Allergy Severe RASH Verified 06/11/25 00:41 Review of Systems Review of Systems Systems Reviewed: All systems reviewed, normal except as documented ED Exam Narrative Physical exam: Generally patient is alert and developmentally delayed, head is normocephalic atraumatic, neurologic exam shows the patient be paraplegic, abdomen is soft slightly distended and tympanic but nontender, musculoskeletal exam shows muscle wasting to all extremities but more so to the lower extremities with a [place] Coma Scale of 15, heart tachycardic rate with regular rhythm, lungs clear to auscultation equal bilaterally Course Quality Measures none Orders Category Date Time Status IV [Insert IV] NOW Care 06/11/25 01:26 Active NPO NOW Care 06/11/25 01:07 Active Diet NPO (NOW) Diet 06/11/25 01:[address] abdomen pelvis wo con Stat Exams 06/11/25 01:06 Taken Blood Culture (Lab) Stat Lab 06/11/25 01:25 Received CBC Stat Lab 06/11/25 01:25 Completed CMP [Comprehensive Metabolic Panel] Stat Lab 06/11/25 01:25 Completed Lactic Acid [Lactate (Lactic Acid)] Stat Lab 06/11/25 01:25 Completed Lipase Stat Lab 06/11/25 01:25 Completed PT [Prothrombin Time with INR] Stat Lab 06/11/25 01:25 Completed Urinalysis Stat Lab 06/11/25 01:42 Completed Urine Culture Stat Lab 06/11/25 01:42 Received HYDROmorphone INJ [Dilaudid Inj] Med 06/11/25 01:39 Discontinued 1 mg IVP X1 ONE Morphine* Inj Med 06/11/25 01:49 Discontinued 4 mg IVP X1 ONE cefTRIAXone/D5w 1gm IV premix [Rocephin/D5w 1gm IV Med 06/11/25 01:24 Discontinued premix] 1 gm in 50 ml IV X1 Vital Signs Vital signs: Vital Signs Temperature 97.9 F 06/11/25 00:52 Pulse Rate 109 H 06/11/25 00:52 Respiratory Rate 20 06/11/25 00:52 Blood Pressure 206/136 H 06/11/25 00:52 Pulse Oximetry (%) 98 06/11/25 00:52 Oxygen Delivery Method Room Air 06/11/25 00:52 Urogenital - Male MDM Narrative MDM Narrative:: Jennifer Attestation: 06/11/25 - [place], am scribing for and in the presence of Dr. Arceo. Patient had recent hospitalization for bilateral staghorn calculi with UTI. The urine grew out Proteus mirabilis. Patient finished the antibiotics at home but started to get sick again with flank pain and possible fever 2 days ago. Urine is infected again tonight. The Proteus mirabilis previously was sensitive to ceftriaxone so the patient was given ceftriaxone 1 g IM here in the emergency room. Lactic acid level is not elevated. I have discussed this case with the hospitalist and the patient will be admitted to the hospital for further treatment evaluation with a UTI with staghorn calculi bilaterally visualized on CT scan of the abdomen and pelvis done this evening. Patient data External records reviewed:: [facility] previous records (Per chart review, patient was admitted here on 05/22/25 for pyelonephritis of the right kidney.) Clinical information provided by:: patient Social determinants that could affect healthcare access:: none Patient has the following chronic illnesses:: spina bifida, ASSIGNMENT AGENT shunt, staghorn renal calculi with recurrent UTIs s/p stone ablation and ureteral stents How is presenting disease/condition affected by chronic disease/condition?: caused by Evaluation data The following diagnostics were reviewed and interpreted by me:: lab results and radiology exam(s) Lab and/or radiology exams considered but not ordered:: none Interpretation Summary: See [facility] Medications / Prescriptions Medications or Prescriptions considered but not ordered:: none Medication administrations:: Medication Administration History Discontinued Medications Hydromorphone HCl (Hydromorphone Inj 2 Mg/Ml Vial) 1 mg IVP X1 ONE Stop: 06/11/25 01:40 Last Admin: 06/11/25 01:51 Dose: Not Given Documented By: NITZA Non-Admin Reason: Cancelled by Provider Ceftriaxone Sodium/Dextrose (Rocephin/D5w 1gm Iv Premix) 1 gm in 50 mls @ 100 mls/hr IV X1 ONE Stop: 06/11/25 01:53 Last Infusion: 06/11/25 01:59 Dose: Infused Documented By: Admin: 06/11/25 01:29 Dose: 100 mls/hr Documented By: NITZA Morphine Sulfate (Morphine Sulf Inj 4 Mg/Ml Vial) 4 mg IVP X1 ONE Stop: 06/11/25 01:50 Last Admin: 06/11/25 02:02 Dose: 4 mg Documented By: BOB see above Consultations Consultation(s) initiated? (list below): Yes Diagnosis Urogenital Male Differential Diagnosis: other (See MDM) Most likely diagnosis given after review of the tests above:: see clinical impression below Admission Indicated Admission indicated?: indicated Admission Request Was there a request for admission?: Yes Admission Attestation Admission request attestation: Discussed case with [] from Hospitalist service regarding admission. Discussed patients ED course, exam findings, labs, and radiology results. The Hospitalist [agrees,declines] to accept the patient for admission. Disposition Plan Disposition Plan: Admit Discharge Plan Plan Patient Disposition: Admit Acute Care w/in Hospital Prescriptions/Referrals Prescriptions/Med Rec: No Action amlodipine 10 mg tablet 10 mg PO DAILY Patient Comments: TAKE 1 TABLET BY MOUTH EVERY DAY sennosides [Senna Lax] 8.6 mg Tablet 30 mg PO BID PRN (Reason: Constipation) 30 Days Qty: 60 0RF pantoprazole 40 mg Tablet,Delayed Release (Dr/Ec) 40 mg PO BID 30 Days Qty: 60 0RF cefpodoxime 200 mg tablet 200 mg PO BID Qty: 20 0RF Rx Instructions: must administer with a meal/food clonidine HCl 0.1 mg tablet 0.1 mg PO BID Patient Comments: TAKE 1 TABLET BY MOUTH TWICE A DAY Referrals: Vandana Sears NP [Primary Care Provider] - In 1 week Problem List Clinical Impression: Staghorn kidney stones, Acute UTI Patient/Caregiver Discharge Instructions Print Language: Romansh Stand Alone Forms: Leyla Award Info., Patient Portal Info Letter
[2025-06-11] MEDS: cefTRIAXone/D5w 1gm IV premix 1 GM/50 ML BAG IV ×2 (01:29→04:21)
[2025-06-11 01:40] LABS: Lactate (Lactic Acid) 1.2 mMol/L (0.4-2.0)
[2025-06-11 01:47] LABS: Basophils # (Auto) 0.1 Thou/mm3 (0.0-0.2); Basophils % (Auto) 1 % (0-2.5); Eosinophils # (Auto) 0.2 Thou/mm3 (0.0-0.5); Eosinophils % (Auto) 2 % (0-10); Hematocrit 31.0 % (41.0-53.0); Hemoglobin 9.5 g/dL (13.5-16.0); Immature Granulocytes Auto 0.03 Thou/mm3 (0.00-0.00); Lymphocytes # (Auto) 1.1 Thou/mm3 (1.0-4.8); Lymphocytes % (Auto) 11 % (10-50); Mean Corpuscular HGB Conc 30.6 g/dl (31.0-37.0); Mean Corpuscular Hemoglobin 22.9 pg (25.0-35.0); Mean Corpuscular Volume 75 fL (80-100); Monocytes # (Auto) 0.5 Thou/mm3 (0.0-0.8); Monocytes % (Auto) 5 % (0-12); Neutrophils # (Auto) 8.2 Thou/mm3 (1.8-7.7); Neutrophils % (Auto) 82 % (37-80); Nucleated Red Blood Cell # 0.00 Thou/mm3 (0.00-0.00); Nucleated Red Blood Cell % 0 /100 WBC (0); Platelet Count 367 Thou/mm3 (140-440); RDW Standard Deviation 60.1 fL (35.1-43.9); Red Blood Count 4.14 Miln/mm3 (4.50-5.90); White Blood Count 10.0 Thou/mm3 (3.8-10.6)
[2025-06-11 02:00] LABS: INR 0.9 (0.9-1.3); Prothrombin Time 10.1 Seconds (9.0-12.2)
[2025-06-11] MEDS: MORPHINE SULF INJ 4 MG/ML VIAL IVP (02:02)
[2025-06-11 02:18] LABS: Alanine Aminotransferase 9 U/L (10-49); Albumin, Serum 4.5 gm/dL (3.5-5.0); Albumin/Globulin Ratio 1.9 (1.2-2.2); Alkaline Phosphatase 115 U/L (46-116); Anion Gap 13 (7-16); Aspartate Amino Transferase 23 U/L (0-34); BUN/Creatinine Ratio 18 Ratio (12-20); Bilirubin,Total 0.3 mg/dL (0.3-1.2); Blood Urea Nitrogen 34 mg/dL (9-23); Calcium 8.5 mg/dL (8.3-10.6); Calcium (Corrected) 8.5 mg/dL (8.5-10.1); Carbon Dioxide 19.6 mMol/L (20.0-31.0); Chloride 104 mMol/L (98-107); Creatinine (Component) 1.9 mg/dL (0.6-1.3); Globulin 2.4 gm/dL (2.3-3.5); Glucose 107 mg/dL (74-106); Lipase 76 U/L (12-53); Osmolality,Calculated 281 (275-295); Potassium 3.6 mMol/L (3.4-5.1); Sodium 137 mMol/L (136-145); Total Protein 6.9 gm/dL (5.7-8.2); eGFR 47 See Note
[2025-06-11 02:42] LABS: Collection Type, Urine Voided
[2025-06-11 03:17] LABS: Amorphous Crystals,Urine Present (Absent); Bacteria,Urine 1+; Bilirubin,Urine Negative (Negative); Blood,Urine 3+ (Negative); Clarity,Urine Turbid (Clear/Hazy); Color,Urine Lt Orange (Lt Yel-Yel); Glucose, Urine Negative (Negative); Ketones,Urine Negative (Negative); Leukocyte Esterase,Urine Positive (Negative); Nitrite,Urine Positive (Negative); PH,Urine 8.0 (5.0-7.0); Protein,Urine 3+ (Neg - Trace); RBC,Urine 355 /hpf (0-3); Specific Gravity,Urine 1.013 (1.001-1.035); Squamous Epithelial Cell,Urine 2 /hpf (0-5); Triple Phosphate Crystal,Urine Rare; Urobilinogen,Urine Negative mg/dL (0.0-1.0); WBC,Urine 83 /hpf (0-5)
--- NOTE | 2025-06-11 03:46 | PRELIM_ITS ---
CT scan of the abdomen and pelvis without intravenous contrast (axial sections with sagittal and coronal reformats) June 11, 2025 0210 hours Clinical History: Periumbilical pain. Comparison: None available at the time of this report. Findings: The lung bases are clear. The liver, gallbladder, pancreas, spleen, and adrenals are unremarkable on this noncontrast study. Bilateral JJ catheters from the renal pelvises to the urinary bladder. Mild bilateral hydroureteronephrosis. No stones along the ureters. Bilateral ureters wall thickening associated with peripheral fat stranding. Bilateral nonobstructing kidney stones. Mild fat stranding peripheral to the right kidney. No evidence of bowel obstruction. No evidence of appendicitis. There is no mesenteric or retroperitoneal adenopathy. The urinary bladder is unremarkable. There is no free fluid or free air. No acute fractures. Right convex scoliosis. 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 Small complex right hip joint effusion. Dilated left atrium. Status post bowel resection. 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 Impression: 1. Bilateral ureteritis. 2. Possible right pyelonephritis. 3. Bilateral hydronephrosis with JJ catheters in place. 4. Small complex right hip joint effusion. This is suspicious for septic arthritis, further evaluation is recommended. 5. 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 6. Dilated left atrium. Report Electronically Signed By: Jason Muñoz 06/11/2025 3:45:47 AM [EST]
[2025-06-11] MEDS: HYDROmorphone INJ 2 MG/ML VIAL 1 MG IVP ×4 (04:21→20:33)
[2025-06-11] MEDS: LABETALOL INJ 5 MG/ML VIAL 20 ML 10 MG IVP ×2 (04:22→09:48)
--- NOTE | 2025-06-11 04:23 | ESHP_ITS ---
<Statement entered by Matty Edwards MD - 06/11/25 20:21> I have discussed and was present for the essential components of the history, physical examination, diagnosis, and treatment plan with the resident. I agree with the patient's care as documented by the resident and amended herein by me. Matty Edwards MD FACP. Documentation for date of: 06/11/25 HPI History of Present Illness History of present illness: 35-year-old male with a history of spina bifida, AUTOMATIC CHIEF shunt, and staghorn renal calculi with recurrent UTIs s/p stone ablation and ureteral stents, presents with complaints of hematuria and bilateral abdominal and back pain. The patient was admitted last month for similar symptoms, during which Dr. Morelos reportedly switched both stents. The patient was discharged on 05/22/2025 after a hospitalization and completed a 10-day course of cefpodoxime. He denies any fever, chills, nausea or vomiting, shortness of breath, or chest pain. He is a well-known patient to the hospital. ED course: Initial vitals include T 97.9, BP 206/136, HR 109, RR 20, O2 sat 98% room air. Notable labs include WBC 10, hemoglobin 9.5, BUN 34, creatinine 1.9, lactic acid 1.2, LFTs within normal range, lipase 76. CT abdomen/pelvis (prelim read) shows bilateral ureteritis, possible right pyelonephritis, bilateral hydronephrosis with JJ catheters in place. Past medical history: As stated above. Allergies: Hydrocodone (itchy), latex (rash) Family history: Noncontributory. Social history: No alcohol use, no smoking, no illicit drug use. Patient admitted for complicated UTI and possible pyelonephritis. Review of Systems Review of Systems Narrative Review of Systems: All systems reviewed negative unless stated otherwise above. Exam Vital Signs Temp Pulse Resp BP Pulse Ox O2 Del Method 98.2 F 109 H 17 196/135 H 99 Room Air 06/11/25 02:27 06/11/25 04:22 06/11/25 02:27 06/11/25 04:22 06/11/25 02:27 06/11/25 02:27 Narrative Exam General: A/O x3, moderate distress Eyes: PERRL, EOMI. Anicteric, vision grossly intact. Ears: No ear pain, no ear discharge, hearing grossly intact. Nose: No nasal discharge. Mouth/Throat: Moist mucous membranes, no redness, no lesions. Neck: Neck supple, non-tender, no cervical lymphadenopathy. Lungs: Clear ELBA to auscultation and percussion, No accessory muscle use. Cardio: Normal S1/S2, regular rhythm, no murmurs, no JVD or carotid bruits. Abdomen: Generalized tenderness to whole abdomen, no palpable masses, peristalsis present, bilateral CVA tenderness Extremities: Symmetrical, no significant deformities, no peripheral edema , non-tender, peripheral pulses presents. Skin: No rashes, no lesions, warm to touch. Neuro: No focal neurological deficits. Wheelchair-bound secondary to spina bifida. Psych: Cooperative, appropriate mood and effect. Results: Labs 06/11/25 04:23 06/11/25 04:23 Labs: Short CBC 06/11/25 Range/Units 01:25 WBC 10.0 (3.8-10.6) Thou/mm3 Hgb 9.5 L (13.5-16.0) g/dL Hct 31.0 L (41.0-53.0) % Plt Count 367 D (140-440) Thou/mm3 BMP 06/11/25 01:25 Sodium 137 Potassium 3.6 Chloride 104 Carbon Dioxide 19.6 L BUN 34 H Creatinine 1.9 H Glucose 107 H Calcium 8.5 Liver Function 06/11/25 Range/Units 01:25 Total Bilirubin 0.3 (0.3-1.2) mg/dL AST 23 (0-34) U/L ALT 9 L (10-49) U/L Alkaline Phosphatase 115 (46-116) U/L Albumin 4.5 (3.5-5.0) gm/dL Urine 06/11/25 Range/Units 01:42 Urine Color Lt [place] A (Lt Yel-Yel) Urine Clarity Turbid A (Clear/Hazy) Urine pH 8.0 H (5.0-7.0) Ur Specific [place] 1.013 (1.001-1.035) Urine Protein 3+ A (Neg - Trace) Urine Glucose (UA) Negative (Negative) Quality Measures Quality Measures none Medications Home Medications and Allergies Home Medications ?Medication ?Instructions ?Recorded ?Confirmed ?Type amlodipine 10 mg tablet 10 mg PO DAILY 06/06/2404/25 History clonidine HCl 0.1 mg tablet 0.1 mg PO BID 01/14/25 History Allergies Allergy/AdvReac Type Severity Reaction Status Date / Time hydrocodone (From [place]) Allergy Severe ITCH Verified 06/11/25 00:41 latex Allergy Severe RASH Verified 06/11/25 00:41 Visit Medications Acetaminophen (Acetaminophen 325 Mg Tablet) 650 mg PO Q6H PRN PRN Reason: Fever >100.4 OR mild pain (1-3 Stop: 07/11/25 04:00 Heparin Sodium (Porcine) (Heparin Sod Inj 5000 Unit/Ml Vial) 5,000 unit SC Q8HR ARACELY Stop: 06/25/25 05:59 Lactated Ringer's (Lactated Ringers) 1,000 mls @ 100 mls/hr IV .Q10H ARACELY Stop: 07/11/25 04:14 Ceftriaxone Sodium/Dextrose (Rocephin/D5w 1gm Iv Premix) 1 gm in 50 mls @ 100 mls/hr IV X1 ONE Stop: 06/11/25 04:36 Last Admin: 06/11/25 04:21 Dose: 100 mls/hr Ceftriaxone Sodium 2 gm/ (Sodium Chloride) 50 mls @ 100 mls/hr IV QDAY ARACELY Stop: 06/19/25 08:59 Labetalol HCl (Labetalol Inj 5 Mg/Ml Vial 20 Ml) 10 mg IVP Q4H PRN PRN Reason: SBP >160 or DBP >110 Stop: 07/11/25 04:08 Last Admin: 06/11/25 04:22 Dose: 10 mg Morphine Sulfate (Morphine Sulf Inj 4 Mg/Ml Vial) 2 mg IVP Q4H PRN PRN Reason: PAIN SCALE 7-10 (Severe Stop: 06/16/25 04:00 Ondansetron HCl (Ondansetron Inj 2 Mg/Ml Inj 2 Ml) 4 mg IVP Q6H PRN; Protocol PRN Reason: NAUSEA OR VOMITING Stop: 07/11/25 04:00 Discontinued Medications Hydromorphone HCl (Hydromorphone Inj 2 Mg/Ml Vial) 1 mg IVP X1 ONE Stop: 06/11/25 01:40 Last Admin: 06/11/25 01:51 Dose: Not Given Hydromorphone HCl (Hydromorphone Inj 2 Mg/Ml Vial) 1 mg IVP X1 ONE Stop: 06/11/25 04:11 Last Admin: 06/11/25 04:21 Dose: 1 mg Ceftriaxone Sodium/Dextrose (Rocephin/D5w 1gm Iv Premix) 1 gm in 50 mls @ 100 mls/hr IV X1 ONE Stop: 06/11/25 01:53 Last Infusion: 06/11/25 01:59 Dose: Infused Morphine Sulfate (Morphine Sulf Inj 4 Mg/Ml Vial) 4 mg IVP X1 ONE Stop: 06/11/25 01:50 Last Admin: 06/11/25 02:02 Dose: 4 mg Assessment & Plan Plan 35-year-old male with a history of spina bifida, AUTOMATIC CHIEF shunt, and staghorn renal calculi with recurrent UTIs s/p stone ablation and ureteral stents, presents with complaints of hematuria and bilateral abdominal and back pain. Patient admitted for complicated UTI and possible pyelonephritis. #Complicated UTI #?Pyelonephritis, right #Hx of staghorn calculi s/p renal stone ablation and stents Recurrent UTIs, recent discharge from hospital 05/22 for pyelonephritis, cultures came back positive for Proteus mirabilis No previous history of ESBL Complaining of hematuria and bilateral abdominal and back pain Afebrile WBC within normal range UA turbid, nitrite and leuk positive, WBC 83 CT abdomen/pelvis (prelim read) shows bilateral ureteritis, possible right pyelonephritis, bilateral hydronephrosis with JJ catheters in place. Plan ? Ceftriaxone 2 g IV daily ? LR bolus 1L ? Follow-up blood culture and urine culture #Severe hypertension Patient takes amlodipine 10 daily, clonidine 0.5 mg twice daily, losartan 25 mg p.o. twice daily, In ED patient received Labetalol 10 mg Plan ? Resumed clonidine 0.1 mg p.o. twice daily ? Day team to resume other BP meds as appropriate Health Maintenance: Diet: Renal GI prophylaxis: None DVT prophylaxis: Heparin 5000u SC every 8 hours Antibiotics: Ceftriaxone 2 g IV daily CODE STATUS: Full Disposition: MedSurg Case discussed with my attending Dr. Edwards, and senior resident, Dr. Hugo Robles MD PGY-1
[2025-06-11] MEDS: RINGERS LACTATED 1000 ML 1,000 ML 100 ML IV (04:24)
[2025-06-11 05:01] LABS: Basophils # (Auto) 0.1 Thou/mm3 (0.0-0.2); Basophils % (Auto) 1 % (0-2.5); Eosinophils # (Auto) 0.1 Thou/mm3 (0.0-0.5); Eosinophils % (Auto) 1 % (0-10); Hematocrit 30.0 % (41.0-53.0); Hemoglobin 9.2 g/dL (13.5-16.0); Immature Granulocytes Auto 0.02 Thou/mm3 (0.00-0.00); Lymphocytes # (Auto) 0.7 Thou/mm3 (1.0-4.8); Lymphocytes % (Auto) 8 % (10-50); Mean Corpuscular HGB Conc 30.7 g/dl (31.0-37.0); Mean Corpuscular Hemoglobin 22.9 pg (25.0-35.0); Mean Corpuscular Volume 75 fL (80-100); Monocytes # (Auto) 0.3 Thou/mm3 (0.0-0.8); Monocytes % (Auto) 4 % (0-12); Neutrophils # (Auto) 7.7 Thou/mm3 (1.8-7.7); Neutrophils % (Auto) 87 % (37-80); Nucleated Red Blood Cell # 0.00 Thou/mm3 (0.00-0.00); Nucleated Red Blood Cell % 0 /100 WBC (0); Platelet Count 358 Thou/mm3 (140-440); RDW Standard Deviation 60.0 fL (35.1-43.9); Red Blood Count 4.01 Miln/mm3 (4.50-5.90); White Blood Count 8.8 Thou/mm3 (3.8-10.6)
[2025-06-11 05:27] LABS: Alanine Aminotransferase < 7 U/L (10-49); Albumin, Serum 4.2 gm/dL (3.5-5.0); Albumin/Globulin Ratio 1.6 (1.2-2.2); Alkaline Phosphatase 107 U/L (46-116); Anion Gap 13 (7-16); Aspartate Amino Transferase 14 U/L (0-34); BUN/Creatinine Ratio 16 Ratio (12-20); Bilirubin,Total 0.4 mg/dL (0.3-1.2); Blood Urea Nitrogen 28 mg/dL (9-23); Calcium 8.7 mg/dL (8.3-10.6); Calcium (Corrected) 8.7 mg/dL (8.5-10.1); Carbon Dioxide 20.8 mMol/L (20.0-31.0); Chloride 104 mMol/L (98-107); Creatinine (Component) 1.8 mg/dL (0.6-1.3); Globulin 2.7 gm/dL (2.3-3.5); Glucose 110 mg/dL (74-106); Magnesium 2.0 mg/dL (1.6-2.6); Osmolality,Calculated 282 (275-295); Phosphorous 3.7 mg/dL (2.4-5.1); Potassium 3.0 mMol/L (3.4-5.1); Sodium 138 mMol/L (136-145); Total Protein 6.9 gm/dL (5.7-8.2); eGFR 50 See Note
[2025-06-11] MEDS: HEPARIN SOD INJ 5000 UNIT/ML VIAL SC ×2 (05:37→22:14)
[2025-06-11] MEDS: RINGERS LACTATED 1000 ML 1,000 ML 999 ML IV (05:38)
--- NOTE | 2025-06-11 07:25 | PC.NURSE ---
Report received from pm nurse, patient to er with c/o alta. flank pain and blood in urine, patient admitted to hospital for complicated h/o uti, patient has h/o spina bifida and self caths. Currently patient sleeping and arouses and responds normally to voice, skin is warm dry and pink. Patient states pain improved to alta. flanks and is a 6/10 at this time, call light within reach. Patient has no other needs at this time.
--- NOTE | 2025-06-11 07:46 | PC.NURSE ---
Spoke with Dr. Roca, hospitalists, gave her update on patient, informed her bp 166/118, per Dr Roca will place orders.
--- NOTE | 2025-06-11 07:51 | PC.NURSE ---
Called pharmacy for Procardia, not in our pyxis, spoke with Robbie
[2025-06-11] MEDS: NIFEdipine XL 30 MG TABCR 60 MG PO (07:55)
[2025-06-11] MEDS: MORPHINE SULF INJ 4 MG/ML VIAL 2 MG IVP (08:54)
[2025-06-11] MEDS: POTASSIUM CHLORIDE 10% 20 MEQ/15 ML UDC 40 MEQ PO (08:54)
--- NOTE | 2025-06-11 08:57 | PC.CC ---
0730-ASW completed an initial assessment at bedside with pt. Pt reports his [employer] worker is his significant other named Kimmy Yair [phone]. Pt reports his PCP is Dr. Vandana Mazariegos at [facility] and sees a specialty provider Dr. Jiménez for Urology. Pt reports his pharmacy of choice is [facility] on [address]. Pt reports he uses a wheel chair w/out leg extension and does not have any needs at this time. Pt reports he is unemployed and lives alone. Pt reports he does not use O2 and typically does his own cooking at home, but grooming and cleaning is done by his [employer] worker. Pt state he is a Full code and his mother is his surrogate Decision Maker Yesenia Michael [phone]. Pt reports he will return home once ready for d/c. PCP-Dr. Vandana Sears at [facility] Specialty provider-Dr. Jiménez, Urology Code- Full Code Surrogate Decision Maker-Yesenia Michael [phone], mother D/c plan-return home Transportation-[employer] worker Kimmy Mazariegos [phone]
--- NOTE | 2025-06-11 09:27 | PC.NURSE ---
Spoke with Dr. Roca, informed her bp 173/127 after procardia given, new order received.
--- NOTE | 2025-06-11 11:28 | PC.NURSE ---
Spoke with Dr. Roca regarding patient's bp informed her of charge nurse on m/s floor, Carole, having concerns of having to give multiple medications for high blood pressure, per Dr. Roca will change status to Tele admit and will place po bp medications.
--- NOTE | 2025-06-11 16:31 | ESPR_ITS ---
<Statement entered by Jazmin Roca MD - 06/12/25 07:45> Patient was seen and examined by me personally. I have directly supervised and reviewed documentation by the team resident and agree with its findings with any exceptions or additional findings as below. Plan of care was discussed with the attending, Dr. Roman. Will continue with IV antibiotics and await culture results. Patient self caths, input order to allow self cath. Jazmin Roca, PGY-3 Documentation for date of: 06/11/25 Subjective Subjective Interval history: Patient was examined at bedside; they appear A&Ox3 and in some pain. Vitals/labs today significant for BP 163/117, hemoglobin 8.2->9.2 (NCV 75, RDW 60), creatinine 1.8 (baseline likely 1.5). Physical exam notable for tachycardia, tenderness to palpation of lower abdominal quadrants, CVA tenderness to percussion, and disproportionately short lower limb length bilaterally. Patient will continue being treated with Rocephin 2 g IV qD and pain control for his possible right pyelonephritis visualized on 06/11 CTAP, bilateral ureteritis, and UTI. He has also been started on clonidine 0.1 mg PO BID, hydralazine 100 mg PO TID, and nifedipine 60 mg PO qD for control of his hypertension. Exam Vital Signs Temp Pulse Resp BP Pulse Ox O2 Del Method 98.3 F 99 18 135/90 H 100 Room Air 06/11/25 12:30 06/11/25 14:19 06/11/25 14:19 06/11/25 14:19 06/11/25 14:19 06/11/25 14:19 Narrative Exam General: A/O x3, moderate distress Eyes: PERRL, EOMI. Anicteric, vision grossly intact. Ears: No ear pain, no ear discharge, hearing grossly intact. Nose: No nasal discharge. Mouth/Throat: Moist mucous membranes, no redness, no lesions. Neck: Neck supple, non-tender, no cervical lymphadenopathy. Lungs: Clear ELBA to auscultation and percussion, No accessory muscle use. Cardio: Normal S1/S2, regular rhythm, no murmurs, no JVD or carotid bruits. Abdomen: Generalized tenderness to whole abdomen, no palpable masses, peristalsis present, bilateral CVA tenderness Extremities: Symmetrical, no significant deformities, no peripheral edema , non-tender, peripheral pulses presents. Skin: No rashes, no lesions, warm to touch. Neuro: No focal neurological deficits. Wheelchair-bound secondary to spina bifida. Psych: Cooperative, appropriate mood and effect. Objective Labs 06/12/25 04:43 06/12/25 04:43 Labs: Laboratory Results - last 24 hr 06/11/25 06/11/25 06/11/25 01:25 01:42 04:23 WBC 10.0 8.8 RBC 4.14 L 4.01 L Hgb 9.5 L 9.2 L Hct 31.0 L 30.0 L MCV 75 L 75 L MCH 22.9 L 22.9 L MCHC 30.6 L 30.7 L RDW Std Deviation 60.1 H 60.0 H Plt Count 367 D 358 Neut % (Auto) 82 H 87 H Lymph % (Auto) 11 8 L [place] % (Auto) 5 4 Eos % (Auto) 2 1 Baso % (Auto) 1 1 Neut # (Auto) 8.2 H 7.7 Lymph # (Auto) 1.1 0.7 L [place] # (Auto) 0.5 0.3 Eos # (Auto) 0.2 0.1 Baso # (Auto) 0.1 0.1 Immature Gran # (Auto) 0.03 H 0.02 H Absolute Nucleated RBC 0.00 0.00 Immature Gran % 0 0 Nucleated RBC % 0 0 PT 10.1 INR 0.9 Sodium 137 138 Potassium 3.6 3.0 L D Chloride 104 104 Carbon Dioxide 19.6 L 20.8 Anion Gap 13 13 BUN 34 H 28 H Creatinine 1.9 H 1.8 H Estim Creat Clear Calc Not Performed. Not Performed. eGFR 47 L 50 L BUN/Creatinine Ratio 18 16 Glucose 107 H 110 H Calculated Osmolality 281 282 Lactic Acid 1.2 Calcium 8.5 8.7 Corrected Calcium 8.5 8.7 Phosphorus 3.7 Magnesium 2.0 Total Bilirubin 0.3 0.4 AST 23 14 ALT 9 L < 7 L Alkaline Phosphatase 115 107 Total Protein 6.9 6.9 Albumin 4.5 4.2 Globulin 2.4 2.7 Albumin/Globulin Ratio 1.9 1.6 Lipase 76 H Ur Collection Type Voided Urine Color Lt [place] A Urine Clarity Turbid A Urine pH 8.0 H Ur Specific [place] 1.013 Urine Protein 3+ A Urine Glucose (UA) Negative Urine Ketones Negative Urine Blood 3+ A Urine Nitrite Positive Urine Bilirubin Negative Urine Urobilinogen (Auto) Negative Ur Leukocyte Esterase Positive Urine RBC 355 H Urine WBC 83 H Ur Squamous Epith Cells 2 Triple Phos Crystals Rare Amorphous Crystals Present A Urine Bacteria 1+ A Quality Measures Quality Measures none Assessment & Plan Assessment Current Active Medications: Generic Name Dose Route Start Last Admin Trade Name Freq PRN Reason Stop Dose Admin Acetaminophen 650 mg 06/11/25 04:01 Acetaminophen 325 Mg Tablet PO 07/11/25 04:00 Q6H PRN Fever >100.4 OR mild pain (1-3 Clonidine 0.1 mg 06/11/25 04:30 06/11/25 05:37 Clonidine Hcl 0.1 Mg Tablet PO 07/11/25 04:29 0.1 mg BID ARACELY Administration Heparin Sodium (Porcine) 5,000 unit 06/11/25 06:00 06/11/25 14:24 Heparin Sod Inj 5000 Unit/Ml Vial SC 06/25/25 05:59 Not Given Q8HR [facility] Hydralazine HCl 100 mg 06/11/25 11:35 06/11/25 12:28 Hydralazine Hcl 25 Mg Tablet PO 07/11/25 11:34 100 mg TID ARACELY Administration Hydromorphone HCl 1 mg 06/11/25 11:43 06/11/25 12:29 Hydromorphone Inj 2 Mg/Ml Vial IVP 06/16/25 11:42 1 mg Q4HR PRN Administration Severe Pain 7-10 Ceftriaxone Sodium/Dextrose 2 gm in 50 mls @ 100 mls/hr 06/12/25 09:00 Rocephin/D5w 2gm IV 06/19/25 08:59 QDAY ARACELY Labetalol HCl 10 mg 06/11/25 11:33 Labetalol Inj 5 Mg/Ml Vial 20 Ml IVP 07/11/25 11:32 Q6HR PRN Hypertension Nifedipine 60 mg 06/12/25 09:00 Nifedipine Xl 30 Mg Tabcr PO 07/12/25 08:59 QDAY ARACELY Ondansetron HCl 4 mg 06/11/25 04:01 Ondansetron Inj 2 Mg/Ml Inj 2 Ml IVP 07/11/25 04:00 Q6H PRN NAUSEA OR VOMITING Protocol Plan 35-year-old male with a history of spina bifida, DAM TENDER shunt, and staghorn renal calculi with recurrent UTIs s/p stone ablation and ureteral stents, presents with complaints of hematuria and bilateral abdominal and back pain. Patient admitted for complicated UTI and possible pyelonephritis. #Complicated UTI #?Pyelonephritis, right #Hx of staghorn calculi s/p renal stone ablation and stents Recurrent UTIs, recent discharge from hospital 05/22 for pyelonephritis, cultures came back positive for Proteus mirabilis No previous history of ESBL Complaining of hematuria and bilateral abdominal and back pain Afebrile WBC within normal range UA turbid, nitrite and leuk positive, WBC 83 CT abdomen/pelvis (prelim read) shows bilateral ureteritis, possible right pyelonephritis, bilateral hydronephrosis with JJ catheters in place. Dx: -06/11 UCx ordered, showed ___ -06/11 BCx ordered, showed ___ Rx: -Ceftriaxone 2 g IV daily -IV fluid resuscitation -Pain control #Hypertensive emergency, resolved #Severe hypertension 06/11 admission BP 206/136 Patient takes amlodipine 10 daily, clonidine 0.5 mg twice daily, losartan 25 mg p.o. twice daily, In ED patient received Labetalol 10 mg Rx: -Clonidine 0.1 mg PO BID -Hydralazine 100 mg PO TID -Nifedipine 60 mg PO qD -Labetalol 10 mg IV q6HR prn for SBP>180 or DBP>120 Health Maintenance: Diet: Renal GI prophylaxis: None DVT prophylaxis: Heparin 5000u SC every 8 hours Antibiotics: Ceftriaxone 2 g IV daily CODE STATUS: [facility] Case discussed with my attending Dr. Abel Badillo DO PGY-1 Attending Provider Attestation/Addendum I have discussed and was present for the essential components of the history, physical examination, diagnosis, and treatment plan with the resident. I agree with the patient's care as documented by the resident and amended herein by me. Felipe Roman DO. Although this document has been carefully reviewed, there may still be some phonetic and other typographical errors. These errors are purely grammatical due to imperfections in the software program and should not be construed in any way to compromise the substance of the patient's medical care during this visit. Patient seen and evaluated this AM. No acute events overnight, vital signs stable, patient afebrile, significant labs included potassium 3.0, creatinine 1.8, baseline likely around 1.5. Patient does have complaints of abdominal pain. Will continue ceftriaxone 2 g daily for now, and continue to follow urine and blood cultures. May consider methenamine upon discharge
--- NOTE | 2025-06-11 16:54 | PC.NURSE ---
Skin assessment done. Patient has an old surgical scar and old healed wound to bottom of scrotum. Skin intact. Color is darkened but intact, no s/s of infection.
[2025-06-11] MEDS: ONDANSETRON INJ 2 MG/ML INJ 2 ML 4 MG IVP (22:12)
[2025-06-12] VITALS (14 sets, daily range): BP systolic 135–144; BP diastolic 83–96; PULSE 85–119; RESP 16–100; TEMP 36.3–36.9; O2SAT 97–100
[2025-06-12] MEDS: HYDROmorphone INJ 2 MG/ML VIAL 1 MG IVP ×6 (00:34→21:02)
[2025-06-12 05:20] LABS: Basophils # (Auto) 0.0 Thou/mm3 (0.0-0.2); Basophils % (Auto) 1 % (0-2.5); Eosinophils # (Auto) 0.1 Thou/mm3 (0.0-0.5); Eosinophils % (Auto) 1 % (0-10); Hematocrit 27.9 % (41.0-53.0); Immature Granulocytes Auto 0.02 Thou/mm3 (0.00-0.00); Lymphocytes # (Auto) 0.7 Thou/mm3 (1.0-4.8); Lymphocytes % (Auto) 9 % (10-50); Mean Corpuscular HGB Conc 31.2 g/dl (31.0-37.0); Mean Corpuscular Hemoglobin 23.5 pg (25.0-35.0); Mean Corpuscular Volume 75 fL (80-100); Monocytes # (Auto) 0.5 Thou/mm3 (0.0-0.8); Monocytes % (Auto) 6 % (0-12); Neutrophils # (Auto) 6.7 Thou/mm3 (1.8-7.7); Neutrophils % (Auto) 83 % (37-80); Nucleated Red Blood Cell # 0.00 Thou/mm3 (0.00-0.00); Nucleated Red Blood Cell % 0 /100 WBC (0); Platelet Count 297 Thou/mm3 (140-440); RDW Standard Deviation 61.5 fL (35.1-43.9); Red Blood Count 3.70 Miln/mm3 (4.50-5.90); White Blood Count 8.0 Thou/mm3 (3.8-10.6)
[2025-06-12] MEDS: HEPARIN SOD INJ 5000 UNIT/ML VIAL SC ×2 (05:23→14:24)
[2025-06-12 05:53] LABS: Alanine Aminotransferase < 7 U/L (10-49); Albumin, Serum 4.2 gm/dL (3.5-5.0); Albumin/Globulin Ratio 1.7 (1.2-2.2); Alkaline Phosphatase 100 U/L (46-116); Anion Gap 12 (7-16); Aspartate Amino Transferase 15 U/L (0-34); BUN/Creatinine Ratio 16 Ratio (12-20); Bilirubin,Total 0.5 mg/dL (0.3-1.2); Blood Urea Nitrogen 25 mg/dL (9-23); Calcium 8.6 mg/dL (8.3-10.6); Calcium (Corrected) 8.6 mg/dL (8.5-10.1); Carbon Dioxide 20.0 mMol/L (20.0-31.0); Chloride 104 mMol/L (98-107); Creatinine (Component) 1.6 mg/dL (0.6-1.3); Globulin 2.5 gm/dL (2.3-3.5); Glucose 103 mg/dL (74-106); Osmolality,Calculated 276 (275-295); Potassium 3.1 mMol/L (3.4-5.1); Sodium 136 mMol/L (136-145); Total Protein 6.7 gm/dL (5.7-8.2); eGFR 57 See Note
[2025-06-12 06:13] LABS: Hemoglobin 8.7 g/dL (13.5-16.0)
[2025-06-12] MEDS: cefTRIAXone/D5w 2gm 2 GM/50 ML BAG IV (09:03)
[2025-06-12] MEDS: NIFEdipine XL 30 MG TABCR 60 MG PO (09:03)
[2025-06-12] MEDS: ONDANSETRON INJ 2 MG/ML INJ 2 ML 4 MG IVP (09:09)
[2025-06-12] MEDS: POTASSIUM CHLORIDE 10% 20 MEQ/15 ML UDC 40 MEQ PO (09:13)
--- NOTE | 2025-06-12 11:37 | PC.SS ---
SS follow up note; Patient is getting IV ABX to treat the UTI. Discharge home within 1-2 days.
--- NOTE | 2025-06-12 14:13 | ESPR_ITS ---
<Statement entered by Jazmin Roca MD - 06/13/25 14:53> Patient was seen and examined by me personally. I have directly supervised and reviewed documentation by the team resident and agree with its findings with any exceptions or additional findings as below. Plan of care was discussed with the attending, Dr. Roman. Jazmin Roca, PGY-3 Documentation for date of: 06/12/25 Subjective Subjective Interval history: No overnight events. Patient was examined at bedside; they appear A&Ox3 and in NAD. Vitals/labs today significant for BP 137/88, potassium 3.1, creatinine 1.8- >1.6. Physical exam was non-contributory. 06/11 UCx grew GNR, likely the same Proteus mirablis he had last admission (UA urine pH was also basic which is also typical of this organism). 06/11 BCx show [id number]. Patient will continue being treated with Rocephin IV and pain control for his complicated UTI with possible right pyelonephritis but these episodes will likely continue to recur due to the presence of extensive bilateral staghorn calculi; he will likely require removal of this calculi by Urology before these episodes of infection stop. Patient will also likely benefit from a urease inhibitor like acetohydroxamic acid to stop bacteria from reducing urine alkalinity and struvite stone growth and/or methenamine hippurate to suppress bacterial growth. Otherwise, patient's blood pressure has remained much better controlled today on his current anti-hypertensive regimen. Exam Vital Signs Temp Pulse Resp BP Pulse Ox O2 Del Method 98.3 F 88 18 135/86 H 100 Room Air 06/12/25 08:00 06/12/25 09:03 06/12/25 08:00 06/12/25 09:03 06/12/25 08:00 06/12/25 08:00 Narrative Exam General: A/O x3, moderate distress Eyes: PERRL, EOMI. Anicteric, vision grossly intact. Ears: No ear pain, no ear discharge, hearing grossly intact. Nose: No nasal discharge. Mouth/Throat: Moist mucous membranes, no redness, no lesions. Neck: Neck supple, non-tender, no cervical lymphadenopathy. Lungs: Clear ELBA to auscultation and percussion, No accessory muscle use. Cardio: Normal S1/S2, regular rhythm, no murmurs, no JVD or carotid bruits. Abdomen: Generalized tenderness to whole abdomen, no palpable masses, peristalsis present, bilateral CVA tenderness Extremities: Symmetrical, no significant deformities, no peripheral edema , non-tender, peripheral pulses presents. Skin: No rashes, no lesions, warm to touch. Neuro: No focal neurological deficits. Wheelchair-bound secondary to spina bifida. Psych: Cooperative, appropriate mood and effect. Objective Labs 06/12/25 04:43 06/12/25 04:43 Labs: Laboratory Results - last 24 hr 06/12/25 04:43 WBC 8.0 RBC 3.70 L Hgb 8.7 L Hct 27.9 L MCV 75 L MCH 23.5 L MCHC 31.2 RDW Std Deviation 61.5 H Plt Count 297 D Neut % (Auto) 83 H Lymph % (Auto) 9 L [place] % (Auto) 6 Eos % (Auto) 1 Baso % (Auto) 1 Neut # (Auto) 6.7 Lymph # (Auto) 0.7 L [place] # (Auto) 0.5 Eos # (Auto) 0.1 Baso # (Auto) 0.0 Immature Gran # (Auto) 0.02 H Absolute Nucleated RBC 0.00 Immature Gran % 0 Nucleated RBC % 0 Sodium 136 Potassium 3.1 L Chloride 104 Carbon Dioxide 20.0 Anion Gap 12 BUN 25 H Creatinine 1.6 H Estim Creat Clear Calc Not Performed. eGFR 57 L BUN/Creatinine Ratio 16 Glucose 103 Calculated Osmolality 276 Calcium 8.6 Corrected Calcium 8.6 Total Bilirubin 0.5 AST 15 ALT < 7 L Alkaline Phosphatase 100 Total Protein 6.7 Albumin 4.2 Globulin 2.5 Albumin/Globulin Ratio 1.7 Quality Measures Quality Measures none Assessment & Plan Assessment Current Active Medications: Generic Name Dose Route Start Last Admin Trade Name Freq PRN Reason Stop Dose Admin Acetaminophen 650 mg 06/11/25 04:01 Acetaminophen 325 Mg Tablet PO 07/11/25 04:00 Q6H PRN Fever >100.4 OR mild pain (1-3 Clonidine 0.1 mg 06/11/25 04:30 06/12/25 09:03 Clonidine Hcl 0.1 Mg Tablet PO 07/11/25 04:29 0.1 mg BID ARACELY Administration Heparin Sodium (Porcine) 5,000 unit 06/11/25 06:00 06/12/25 05:23 Heparin Sod Inj 5000 Unit/Ml Vial SC 06/25/25 05:59 5,000 unit Q8HR ARACELY Administration Hydralazine HCl 100 mg 06/11/25 11:35 06/12/25 05:22 Hydralazine Hcl 25 Mg Tablet PO 07/11/25 11:34 100 mg TID ARACELY Administration Hydromorphone HCl 1 mg 06/11/25 11:43 06/12/25 12:56 Hydromorphone Inj 2 Mg/Ml Vial IVP 06/16/25 11:42 1 mg Q4HR PRN Administration Severe Pain 7-10 Ceftriaxone Sodium/Dextrose 2 gm in 50 mls @ 100 mls/hr 06/12/25 09:00 06/12/25 09:03 Rocephin/D5w 2gm IV 06/19/25 08:59 100 mls/hr QDAY ARACELY Administration Labetalol HCl 10 mg 06/11/25 11:33 Labetalol Inj 5 Mg/Ml Vial 20 Ml IVP 07/11/25 11:32 Q6HR PRN Hypertension Nifedipine 60 mg 06/12/25 09:00 06/12/25 09:03 Nifedipine Xl 30 Mg Tabcr PO 07/12/25 08:59 60 mg QDAY ARACELY Administration Ondansetron HCl 4 mg 06/11/25 04:01 06/12/25 09:09 Ondansetron Inj 2 Mg/Ml Inj 2 Ml IVP 07/11/25 04:00 4 mg Q6H PRN Administration NAUSEA OR VOMITING Protocol Plan 35-year-old male with a history of spina bifida, 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 Patient admitted for complicated UTI and possible pyelonephritis. #Complicated UTI #?Pyelonephritis, right #Hx of staghorn calculi s/p renal stone ablation and stents Recurrent UTIs, recent discharge from hospital 05/22 for pyelonephritis, cultures came back positive for Proteus mirabilis No previous history of ESBL Complaining of hematuria and bilateral abdominal and back pain Afebrile WBC within normal range UA turbid, nitrite and leuk positive, WBC 83 CT abdomen/pelvis (prelim read) shows bilateral ureteritis, possible right pyelonephritis, bilateral hydronephrosis with JJ catheters in place. Dx: -06/11 UCx ordered, showed GNR growth (likely Proteus mirablis again) -06/11 BCx ordered, showed NG24HR Rx: -Ceftriaxone 2 g IV daily [06/11--] -IV fluid resuscitation -Pain control -Long-term solution is ultimately for Urology to remove staghorn calculi -Will possibly discharge patient with a urease inhibitor like acetohydroxamic acid to stop bacteria from reducing urine alkalinity and struvite stone growth and/or methenamine hippurate to suppress bacterial growth #Hypertensive emergency, resolved #Severe hypertension 06/11 admission BP 206/136 Patient takes amlodipine 10 daily, clonidine 0.5 mg twice daily, losartan 25 mg p.o. twice daily, In ED patient received Labetalol 10 mg Rx: -Clonidine 0.1 mg PO BID -Hydralazine 100 mg PO TID -Nifedipine 60 mg PO qD -Labetalol 10 mg IV q6HR prn for SBP>180 or DBP>120 Health Maintenance: Diet: Renal GI prophylaxis: None DVT prophylaxis: Heparin 5000u SC every 8 hours Antibiotics: Ceftriaxone 2 g IV daily CODE STATUS: Full Disposition: Med Surg Case discussed with my attending Dr. Abel Badillo DO PGY-1 Attending Provider Attestation/Addendum I have discussed and was present for the essential components of the history, physical examination, diagnosis, and treatment plan with the resident. I agree with the patient's care as documented by the resident and amended herein by me. Felipe Roman DO. Although this document has been carefully reviewed, there may still be some phonetic and other typographical errors. These errors are purely grammatical due to imperfections in the software program and should not be construed in any way to compromise the substance of the patient's medical care during this visit. Patient seen and evaluated this AM. No acute events overnight, patient does have diffuse abdominal pain today, the same as yesterday. Still awaiting cultures. Patient really needs to follow-up with a tertiary center for urology, he stated that he has transportation issues and is difficult to however we really cannot do anything more for him at this facility, it was recommended in the past by urology to follow-up at a tertiary center but the patient has not been able to get to a center. I am afraid all we are doing is making him more resistant with copious antibiotics that we give him during every admission. I will attempt to call his family today or tomorrow and see what we can do or who can help to get this patient to an appropriate tertiary center for urology.
[2025-06-13] VITALS (13 sets, daily range): BP systolic 127–152; BP diastolic 84–97; PULSE 77–113; RESP 12–99; TEMP 36.4–36.9; O2SAT 98–100
[2025-06-13] MEDS: HYDROmorphone INJ 2 MG/ML VIAL 1 MG IVP ×6 (01:21→21:38)
[2025-06-13 05:40] LABS: Basophils # (Auto) 0.0 Thou/mm3 (0.0-0.2); Basophils % (Auto) 0 % (0-2.5); Eosinophils # (Auto) 0.0 Thou/mm3 (0.0-0.5); Eosinophils % (Auto) 1 % (0-10); Hematocrit 27.0 % (41.0-53.0); Immature Granulocytes Auto 0.02 Thou/mm3 (0.00-0.00); Lymphocytes # (Auto) 0.4 Thou/mm3 (1.0-4.8); Lymphocytes % (Auto) 6 % (10-50); Mean Corpuscular HGB Conc 30.7 g/dl (31.0-37.0); Mean Corpuscular Hemoglobin 23.2 pg (25.0-35.0); Mean Corpuscular Volume 76 fL (80-100); Monocytes # (Auto) 0.4 Thou/mm3 (0.0-0.8); Monocytes % (Auto) 6 % (0-12); Neutrophils # (Auto) 6.1 Thou/mm3 (1.8-7.7); Neutrophils % (Auto) 87 % (37-80); Nucleated Red Blood Cell # 0.00 Thou/mm3 (0.00-0.00); Nucleated Red Blood Cell % 0 /100 WBC (0); Platelet Count 336 Thou/mm3 (140-440); RDW Standard Deviation 61.5 fL (35.1-43.9); Red Blood Count 3.57 Miln/mm3 (4.50-5.90); White Blood Count 7.1 Thou/mm3 (3.8-10.6)
[2025-06-13 06:03] LABS: Alanine Aminotransferase 10 U/L (10-49); Albumin, Serum 4.2 gm/dL (3.5-5.0); Albumin/Globulin Ratio 1.9 (1.2-2.2); Alkaline Phosphatase 99 U/L (46-116); Anion Gap 11 (7-16); Aspartate Amino Transferase 33 U/L (0-34); BUN/Creatinine Ratio 16 Ratio (12-20); Bilirubin,Total 0.5 mg/dL (0.3-1.2); Blood Urea Nitrogen 23 mg/dL (9-23); Calcium 8.7 mg/dL (8.3-10.6); Calcium (Corrected) 8.7 mg/dL (8.5-10.1); Carbon Dioxide 19.8 mMol/L (20.0-31.0); Chloride 103 mMol/L (98-107); Creatinine (Component) 1.4 mg/dL (0.6-1.3); Globulin 2.2 gm/dL (2.3-3.5); Glucose 98 mg/dL (74-106); Osmolality,Calculated 271 (275-295); Potassium 4.0 mMol/L (3.4-5.1); Sodium 134 mMol/L (136-145); Total Protein 6.4 gm/dL (5.7-8.2); eGFR > 60 See Note
[2025-06-13 06:32] LABS: Hemoglobin 8.3 g/dL (13.5-16.0)
[2025-06-13] MEDS: cefTRIAXone/D5w 2gm 2 GM/50 ML BAG IV (09:21)
[2025-06-13] MEDS: NIFEdipine XL 30 MG TABCR 90 MG PO (09:21)
[2025-06-13] MEDS: HEPARIN SOD INJ 5000 UNIT/ML VIAL SC ×2 (13:35→21:33)
--- NOTE | 2025-06-13 14:38 | PC.CC ---
Addendum entered by Meenu Quintero RN 06/13/25 17:42: 1733: received call back from Dr. Levya. He stated that Dr. Roman said to cancel transfer request. Addendum entered by Meenu Quintero RN 06/13/25 17:41: 1719: called Dr. Gonzalez's again, Dr. Leyva answered. He stated she signed off to him. I asked for the status of the transfer request. He stated he will reach out to Dr. Gonzalez and he will call me back Addendum entered by Meenu Quintero RN 06/13/25 16:53: per Dr. Gonzalez's progess noted dated 06/13, Dr. Morelos to see patient tomorrow. Called both Dr. Gonzalez and Dr. Roman to discuss if the transfer request needs to continue since Tamy plans to assess the patient tomorrow, both did not answer the phone. Addendum entered by Meenu Quintero RN 06/13/25 16:40: 1639: received call from [facility], pt declined d/t to capacity Addendum entered by Meenu Quintero RN 06/13/25 16:15: 1554: spoke to Dr. Roman, informed him of the feedback below. He stated he will provide the information to patient. I informed Dr. Roman that Len HOPKINS will follow up with patient about his transporation issues. See Len's note for 06/13. [id number]: received call back from [facility], she stated Dr. Delvalle review the clinicals. He stated pt can be follow up as outpatient at their clinic. [facility] [address] [place], [place] Alessia will send the facesheet to the clinic for a referral. She stated the clinic will reach out to the patient to set up appointment. If he does not hear from them within a week, pt is to call the clinic to follow up. Addendum entered by Meenu Quintero RN 06/13/25 15:36: 1531: received call from Alessia [facility], she will send it off to Urology Dr. Delvalle to review and call us back. Addendum entered by Meenu Quintero RN 06/13/25 15:35: Shannan said she will review and call back Addendum entered by Meenu Quintero RN 06/13/25 15:32: 1525: received call back from Shannan, transfer initiated. she stated, they are capacity. Addendum entered by Meenu Quintero RN 06/13/25 15:24: 1524: clinicals and images sent to [facility]. 1519: spoke to Jenny mooney/ YULIS[facility], she stated if the facility is contracted, no auth is needed. She informed me that [facility] and [place] are both contracted with [facility]. Addendum entered by Meenu Quintero RN 06/13/25 15:10: 1508: called [facility], left VM Addendum entered by Meenu Quintero RN 06/13/25 15:08: 1504: spoke to Len HOPKINS regarding f/u if patient has an IHSS worker. Pt states he does not have family to help him with out of the are follow ups. Len stated he will f/u and provide resources if needed. 1500: called Jenny mooney/ [facility], left . Addendum entered by Meenu Quintero RN 06/13/25 14:54: 1452: received call back from Do mooney/ Iva AQUINO, she stated no urology service oncall today at their facility Addendum entered by Meenu Quintero RN 06/13/25 14:52: 1447: called [facility], left . Sent clinicals and images to [facility]. 1443: called [facility], spoke to Alessia. She stated she will call me back after she reviews the clinicals Original Note: 1437: clinicals sent to [facility]. 1415: during the IDT rounding, Dr. Gonzalez stated Dr. Morelos told the patient that he will need to transfer out for urology. She stated pt can probably f/u as outpatient but patient stated he doesn't have resources to f/u as outpatient as he is w/c bound and no caregiver to assist him. Advised to continue with transfer request. 1347: received transfer request for urology for staghorm calculi and recurrent uti. Pt is a h/o staghorn calculi and recurrent uti and has been followed up with Dr. Morelos. will discuss with the team during rounding.
--- NOTE | 2025-06-13 15:56 | PC.SS ---
Patient informed TOLL SETTLEMENT CLERK that his friend, Kimmy Early; assists the patient with transportation. TOLL SETTLEMENT CLERK informed patient of possessing coverage for transportation via insurance. Patient reports ability to secure transport to medical appointments. TOLL SETTLEMENT CLERK updated transfer nurse.
--- NOTE | 2025-06-13 16:09 | ESPR_ITS ---
Documentation for date of: 06/13/25 Subjective Subjective Interval history: Patient is seen and examined at bedside. No acute overnight events. Still complaining of abdominal pain, likely coming from the renal likely. Vitals are stable and blood pressure is well-controlled. Consulted urologist, Dr. Morelos and he recommended that he will see the patient tomorrow. Started transfer process as patient was recommended to [facility] by his urologist, Dr. Morelos. Will continue current management. Final urine cultures came back positive for Proteus mirabilis likely chronic UTI/colonization. Patient was explained that he needs close urology follow-up Exam Vital Signs Temp Pulse Resp BP Pulse Ox O2 Del Method 98.2 F 108 H 19 131/84 H 98 Room Air 06/13/25 12:00 06/13/25 13:34 06/13/25 12:00 06/13/25 13:34 06/13/25 12:00 06/13/25 12:00 Narrative Exam General: Awake. HEENT: Normocephalic, atraumatic, mucous membranes moist. Heart: Regular rate and rhythm, no murmurs. Lungs: Clear to auscultation with no wheezing or crackles. Abdomen: Soft, nondistended, mild to moderate tenderness through out the abdomen, positive bowel sounds. ?No guarding or rebound tenderness. Neurologic: Alert and oriented x3, no gross neurological deficit, and patient able to move all 4 extremities. Extremities: No edema. Skin: No rash or ecchymoses. Objective Labs 06/13/25 05:10 06/13/25 05:10 Labs: Laboratory Results - last 24 hr 06/13/25 05:10 WBC 7.1 RBC 3.57 L Hgb 8.3 L Hct 27.0 L MCV 76 L MCH 23.2 L MCHC 30.7 L RDW Std Deviation 61.5 H Plt Count 336 D Neut % (Auto) 87 H Lymph % (Auto) 6 L [place] % (Auto) 6 Eos % (Auto) 1 Baso % (Auto) 0 Neut # (Auto) 6.1 Lymph # (Auto) 0.4 L [place] # (Auto) 0.4 Eos # (Auto) 0.0 Baso # (Auto) 0.0 Immature Gran # (Auto) 0.02 H Absolute Nucleated RBC 0.00 Immature Gran % 0 Nucleated RBC % 0 Sodium 134 L Potassium 4.0 D Chloride 103 Carbon Dioxide 19.8 L Anion Gap 11 BUN 23 Creatinine 1.4 H Estim Creat Clear Calc Not Performed. eGFR > 60 BUN/Creatinine Ratio 16 Glucose 98 Calculated Osmolality 271 L Calcium 8.7 Corrected Calcium 8.7 Total Bilirubin 0.5 AST 33 ALT 10 Alkaline Phosphatase 99 Total Protein 6.4 Albumin 4.2 Globulin 2.2 L Albumin/Globulin Ratio 1.9 Quality Measures Quality Measures none Assessment & Plan Assessment Current Active Medications: Generic Name Dose Route Start Last Admin Trade Name Freq PRN Reason Stop Dose Admin Acetaminophen 650 mg 06/11/25 04:01 Acetaminophen 325 Mg Tablet PO 07/11/25 04:00 Q6H PRN Fever >100.4 OR mild pain (1-3 Clonidine 0.1 mg 06/11/25 04:30 06/13/25 09:22 Clonidine Hcl 0.1 Mg Tablet PO 07/11/25 04:29 0.1 mg BID ARACELY Administration Heparin Sodium (Porcine) 5,000 unit 06/11/25 06:00 06/13/25 13:35 Heparin Sod Inj 5000 Unit/Ml Vial SC 06/25/25 05:59 5,000 unit Q8HR ARACELY Administration Hydralazine HCl 100 mg 06/11/25 11:35 06/13/25 13:34 Hydralazine Hcl 25 Mg Tablet PO 07/11/25 11:34 100 mg TID ARACELY Administration Hydromorphone HCl 1 mg 06/11/25 11:43 06/13/25 13:35 Hydromorphone Inj 2 Mg/Ml Vial IVP 06/16/25 11:42 1 mg Q4HR PRN Administration Severe Pain 7-10 Ceftriaxone Sodium/Dextrose 2 gm in 50 mls @ 100 mls/hr 06/12/25 09:00 06/13/25 09:21 Rocephin/D5w 2gm IV 06/19/25 08:59 100 mls/hr QDAY ARACELY Administration Labetalol HCl 10 mg 06/11/25 11:33 Labetalol Inj 5 Mg/Ml Vial 4 Ml IVP 07/11/25 11:32 Q6HR PRN Hypertension Nifedipine 90 mg 06/13/25 09:00 06/13/25 09:21 Nifedipine Xl 30 Mg Tabcr PO 07/13/25 08:59 90 mg QDAY ARACELY Administration Ondansetron HCl 4 mg 06/11/25 04:01 06/12/25 09:09 Ondansetron Inj 2 Mg/Ml Inj 2 Ml IVP 07/11/25 04:00 4 mg Q6H PRN Administration NAUSEA OR VOMITING Protocol Plan 35-year-old male with a history of spina bifida, 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 Patient admitted for complicated UTI and possible pyelonephritis. #Complicated UTI #?Pyelonephritis, right #Hx of staghorn calculi s/p renal stone ablation and stents Recurrent UTIs, recent discharge from hospital 05/22 for pyelonephritis, cultures came back positive for Proteus mirabilis No previous history of ESBL Complaining of hematuria and bilateral abdominal and back pain Afebrile WBC within normal range UA turbid, nitrite and leuk positive, WBC 83 CT abdomen/pelvis (prelim read) shows bilateral ureteritis, possible right pyelonephritis, bilateral hydronephrosis with JJ catheters in place. Dx: -06/11 UCx ordered, showed Proteus mirablis, likely chronic UTI/Colonization -06/11 BCx ordered, showed [id number] Rx: -Ceftriaxone 2 g IV daily [06/11--] -IV fluid resuscitation -Pain control -Long-term solution is ultimately for Urology to remove staghorn calculi #Hypertensive emergency, resolved #Severe hypertension, well controlled 06/11 admission BP 206/136 Patient takes amlodipine 10 daily, clonidine 0.5 mg twice daily, losartan 25 mg p.o. twice daily, In ED patient received Labetalol 10 mg Rx: -Clonidine 0.1 mg PO BID -Hydralazine 100 mg PO TID -Nifedipine 60 mg PO qD -Labetalol 10 mg IV q6HR prn for SBP>180 or DBP>120 Health Maintenance: Diet: Renal GI prophylaxis: None DVT prophylaxis: Heparin 5000u SC every 8 hours Antibiotics: Ceftriaxone 2 g IV daily CODE STATUS: Full Disposition: Med Surg Patient plan of care was discussed with the attending physician, Dr. Abel Gonzalez, PGY2 Attending Provider Attestation/Addendum I have discussed and was present for the essential components of the history, physical examination, diagnosis, and treatment plan with the resident. I agree with the patient's care as documented by the resident and amended herein by me. Felipe Roman DO. Although this document has been carefully reviewed, there may still be some phonetic and other typographical errors. These errors are purely grammatical due to imperfections in the software program and should not be construed in any way to compromise the substance of the patient's medical care during this visit. Patient seen and evaluated this AM. Patient still has complaints of diffuse abdominal pain today, significant labs including normal WBC, low but stable hemoglobin and a bicarb of 19.8. Urine culture demonstrating multidrug- resistant Proteus. Is however sensitive to ceftriaxone which is what the patient is on. We did attempt to transfer the patient today to a tertiary center however it was declined which we expected. The patient states that he has transportation issues and cannot get out of town, he does not have much help from his family, I did speak with the patient's mother and let her know the importance of assisting the patient is much as the family could and she understood. Considering the patient is [facility] patient, he does have an [facility] worker which is a significant other named Kimmy Mazariegos. The patient also follows with urologist, Dr. Morelos here who will see the patient tomorrow. Will continue to follow cultures and continue antibiotics, appreciate specialist recommendations.
[2025-06-14] VITALS (11 sets, daily range): BP systolic 122–145; BP diastolic 77–85; PULSE 94–106; RESP 15–19; TEMP 36.5–36.9; O2SAT 97–100
[2025-06-14] MEDS: HYDROmorphone INJ 2 MG/ML VIAL 1 MG IVP ×4 (02:36→15:11)
[2025-06-14] MEDS: HEPARIN SOD INJ 5000 UNIT/ML VIAL SC ×3 (05:57→21:37)
[2025-06-14] MEDS: NIFEdipine XL 30 MG TABCR 90 MG PO (08:35)
[2025-06-14] MEDS: cefTRIAXone/D5w 2gm 2 GM/50 ML BAG IV (08:36)
--- NOTE | 2025-06-14 11:13 | ESPR_ITS ---
<Statement entered by Jazmin Roca MD - 06/15/25 07:08> Patient was seen and examined by me personally. I have directly supervised and reviewed documentation by the team resident and agree with its findings with any exceptions or additional findings as below. Plan of care was discussed with the attending, Dr. Roman. Jazmin Roca, PGY-3 Documentation for date of: 06/14/25 Subjective Subjective Interval history: No overnight events. Patient was examined at bedside; they appear A&Ox3 and in NAD. Vitals/labs today significant for BP 140/85, HR 106, Hgb 8.3, creatinine 1.6->1.4. Physical exam was non-contributory. Per Urology recommendations, patient does not need to be transferred to a tertiary care facility and can be continued on IV antibiotics with plans for Urology to have his ureteral stents replaced in 1-2 weeks. Otherwise, patient's pain regimen will be down-titrated today from Dilaudid 1 mg -> 0.5 mg with the goal of getting patient back on home pain regimen of tramadol 50 mg. Patient has also been counseled on getting a new social sciences research scientist as his current social sciences research scientist (and significant other) cannot provide the transportation and other services the patient needs to obtain care in the out-patient setting at this time. Exam Vital Signs Temp Pulse Resp BP Pulse Ox O2 Del Method 97.8 F 106 H 16 140/85 H 100 Room Air 06/14/25 08:00 06/14/25 08:36 06/14/25 08:00 06/14/25 08:36 06/14/25 08:00 06/14/25 08:00 Narrative Exam General: Awake. HEENT: Normocephalic, atraumatic, mucous membranes moist. Heart: Regular rate and rhythm, no murmurs. Lungs: Clear to auscultation with no wheezing or crackles. Abdomen: Soft, nondistended, mild to moderate tenderness through out the abdomen, positive bowel sounds. ?No guarding or rebound tenderness. Neurologic: Alert and oriented x3, no gross neurological deficit, and patient able to move all 4 extremities. Extremities: No edema. Skin: No rash or ecchymoses. Objective Labs 06/15/25 09:00 06/15/25 09:00 Quality Measures Quality Measures none Assessment & Plan Assessment Current Active Medications: Generic Name Dose Route Start Last Admin Trade Name Freq PRN Reason Stop Dose Admin Acetaminophen 650 mg 06/11/25 04:01 Acetaminophen 325 Mg Tablet PO 07/11/25 04:00 Q6H PRN Fever >100.4 OR mild pain (1-3 Clonidine 0.1 mg 06/11/25 04:30 06/14/25 08:36 Clonidine Hcl 0.1 Mg Tablet PO 07/11/25 04:29 0.1 mg BID ARACELY Administration Heparin Sodium (Porcine) 5,000 unit 06/11/25 06:00 06/14/25 05:57 Heparin Sod Inj 5000 Unit/Ml Vial SC 06/25/25 05:59 5,000 unit Q8HR ARACELY Administration Hydralazine HCl 100 mg 06/11/25 11:35 06/14/25 05:58 Hydralazine Hcl 25 Mg Tablet PO 07/11/25 11:34 100 mg TID ARACELY Administration Hydromorphone HCl 1 mg 06/11/25 11:43 06/14/25 10:52 Hydromorphone Inj 2 Mg/Ml Vial IVP 06/16/25 11:42 1 mg Q4HR PRN Administration Severe Pain 7-10 Ceftriaxone Sodium/Dextrose 2 gm in 50 mls @ 100 mls/hr 06/12/25 09:00 06/14/25 08:36 Rocephin/D5w 2gm IV 06/19/25 08:59 100 mls/hr QDAY ARACELY Administration Labetalol HCl 10 mg 06/11/25 11:33 Labetalol Inj 5 Mg/Ml Vial 4 Ml IVP 07/11/25 11:32 Q6HR PRN Hypertension Nifedipine 90 mg 06/13/25 09:00 06/14/25 08:35 Nifedipine Xl 30 Mg Tabcr PO 07/13/25 08:59 90 mg QDAY ARACELY Administration Ondansetron HCl 4 mg 06/11/25 04:01 06/12/25 09:09 Ondansetron Inj 2 Mg/Ml Inj 2 Ml IVP 07/11/25 04:00 4 mg Q6H PRN Administration NAUSEA OR VOMITING Protocol Plan 35-year-old male with a history of spina bifida, 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 Patient admitted for complicated UTI and possible pyelonephritis. #Complicated UTI #?Pyelonephritis, right #Hx of staghorn calculi s/p renal stone ablation and stents Recurrent UTIs, recent discharge from hospital 05/22 for pyelonephritis, cultures came back positive for Proteus mirabilis No previous history of ESBL Complaining of hematuria and bilateral abdominal and back pain Afebrile WBC within normal range UA turbid, nitrite and leuk positive, WBC 83 CT abdomen/pelvis (prelim read) shows bilateral ureteritis, possible right pyelonephritis, bilateral hydronephrosis with JJ catheters in place. Dx: -06/11 UCx ordered, showed Proteus mirablis again, likely chronic UTI/Colonization -06/11 BCx ordered, showed [id number] Rx: -Ceftriaxone 2 g IV daily [06/11--] -IV fluid resuscitation -Pain control: Dilaudid 1 mg->0.5 mg IV Q4HR PRN for Severe Pain 7-10 (goal: tramadol 50 mg PO Q12HR PRN) -Out-patient Urology follow-up in 1-2 weeks for ureteral stent replacement (no need for transfer per Urology) -Long-term solution is ultimately for Urology to remove staghorn calculi -Urology consulted, appreciate recommendations #Hypertensive emergency, resolved #Severe hypertension, well controlled 06/11 admission BP 206/136 Patient takes amlodipine 10 daily, clonidine 0.5 mg twice daily, losartan 25 mg p.o. twice daily, In ED patient received Labetalol 10 mg Rx: -Clonidine 0.1 mg PO BID -Hydralazine 100 mg PO TID -Nifedipine 60 mg PO qD -Labetalol 10 mg IV q6HR prn for SBP>180 or DBP>120 Health Maintenance: Diet: Renal GI prophylaxis: None DVT prophylaxis: Heparin 5000u SC every 8 hours Antibiotics: Ceftriaxone 2 g IV daily CODE STATUS: Full Disposition: Med Surg Patient plan of care was discussed with the attending physician, Dr. Abel Badillo DO PGY-1 Attending Provider Attestation/Addendum I have discussed and was present for the essential components of the history, physical examination, diagnosis, and treatment plan with the resident. I agree with the patient's care as documented by the resident and amended herein by me. Felipe Roman DO. Although this document has been carefully reviewed, there may still be some phonetic and other typographical errors. These errors are purely grammatical due to imperfections in the software program and should not be construed in any way to compromise the substance of the patient's medical care during this visit.
[2025-06-14] MEDS: HYDROmorphone INJ 2 MG/ML VIAL 0.5 MG IVP ×2 (19:31→23:34)
[2025-06-15] VITALS (8 sets, daily range): BP systolic 132–148; BP diastolic 84–90; PULSE 96–108; RESP 12–23; TEMP 36.6–36.8; O2SAT 94–99
[2025-06-15] MEDS: HYDROmorphone INJ 2 MG/ML VIAL 0.5 MG IVP ×3 (03:36→13:57)
[2025-06-15] MEDS: HEPARIN SOD INJ 5000 UNIT/ML VIAL SC (05:29)
[2025-06-15] MEDS: NIFEdipine XL 30 MG TABCR 90 MG PO (08:59)
[2025-06-15] MEDS: cefTRIAXone/D5w 2gm 2 GM/50 ML BAG IV (08:59)
[2025-06-15 09:37] LABS: Basophils # (Auto) 0.0 Thou/mm3 (0.0-0.2); Basophils % (Auto) 0 % (0-2.5); Eosinophils # (Auto) 0.1 Thou/mm3 (0.0-0.5); Eosinophils % (Auto) 1 % (0-10); Hematocrit 26.0 % (41.0-53.0); Immature Granulocytes Auto 0.04 Thou/mm3 (0.00-0.00); Lymphocytes # (Auto) 0.4 Thou/mm3 (1.0-4.8); Lymphocytes % (Auto) 5 % (10-50); Mean Corpuscular HGB Conc 31.2 g/dl (31.0-37.0); Mean Corpuscular Hemoglobin 23.1 pg (25.0-35.0); Mean Corpuscular Volume 74 fL (80-100); Monocytes # (Auto) 0.5 Thou/mm3 (0.0-0.8); Monocytes % (Auto) 6 % (0-12); Neutrophils # (Auto) 7.6 Thou/mm3 (1.8-7.7); Neutrophils % (Auto) 88 % (37-80); Nucleated Red Blood Cell # 0.00 Thou/mm3 (0.00-0.00); Nucleated Red Blood Cell % 0 /100 WBC (0); Platelet Count 341 Thou/mm3 (140-440); RDW Standard Deviation 59.7 fL (35.1-43.9); Red Blood Count 3.51 Miln/mm3 (4.50-5.90); White Blood Count 8.7 Thou/mm3 (3.8-10.6)
[2025-06-15 09:38] LABS: Hemoglobin 8.1 g/dL (13.5-16.0)
[2025-06-15 09:53] LABS: Anion Gap 10 (7-16); BUN/Creatinine Ratio 15 Ratio (12-20); Blood Urea Nitrogen 25 mg/dL (9-23); Calcium 8.5 mg/dL (8.3-10.6); Carbon Dioxide 20.3 mMol/L (20.0-31.0); Chloride 103 mMol/L (98-107); Creatinine (Component) 1.7 mg/dL (0.6-1.3); Glucose 113 mg/dL (74-106); Osmolality,Calculated 271 (275-295); Potassium 3.0 mMol/L (3.4-5.1); Sodium 133 mMol/L (136-145); eGFR 53 See Note
--- NOTE | 2025-06-15 10:21 | PD.RESPRO ---
Documentation for date of: 06/15/25 Subjective Subjective Interval history: No overnight events. Patient was examined at bedside; they appear A&Ox3 and in NAD. Vitals/labs today significant for Hgb 8.3->8.1, potassium 4.0->3.0, creatinine 1.4->1.7. Physical exam was non-contributory. Exam Vital Signs Temp Pulse Resp BP Pulse Ox O2 Del Method 98.2 F 98 16 132/84 H 99 Room Air 06/15/25 08:00 06/15/25 08:59 06/15/25 08:00 06/15/25 08:59 06/15/25 08:00 06/15/25 08:00 Narrative Exam General: Awake. HEENT: Normocephalic, atraumatic, mucous membranes moist. Heart: Regular rate and rhythm, no murmurs. Lungs: Clear to auscultation with no wheezing or crackles. Abdomen: Soft, nondistended, mild to moderate tenderness through out the abdomen, positive bowel sounds. ?No guarding or rebound tenderness. Neurologic: Alert and oriented x3, no gross neurological deficit, and patient able to move all 4 extremities. Extremities: No edema. Skin: No rash or ecchymoses. Objective Labs 06/15/25 09:00 06/15/25 09:00 Labs: Laboratory Results - last 24 hr 06/15/25 09:00 WBC 8.7 RBC 3.51 L Hgb 8.1 L Hct 26.0 L MCV 74 L MCH 23.1 L MCHC 31.2 RDW Std Deviation 59.7 H Plt Count 341 Neut % (Auto) 88 H Lymph % (Auto) 5 L [place] % (Auto) 6 Eos % (Auto) 1 Baso % (Auto) 0 Neut # (Auto) 7.6 Lymph # (Auto) 0.4 L [place] # (Auto) 0.5 Eos # (Auto) 0.1 Baso # (Auto) 0.0 Immature Gran # (Auto) 0.04 H Absolute Nucleated RBC 0.00 Immature Gran % 1 H Nucleated RBC % 0 Sodium 133 L Potassium 3.0 L D Chloride 103 Carbon Dioxide 20.3 Anion Gap 10 BUN 25 H Creatinine 1.7 H Estim Creat Clear Calc Not Performed. eGFR 53 L BUN/Creatinine Ratio 15 Glucose 113 H Calculated Osmolality 271 L Calcium 8.5 Quality Measures Quality Measures none Assessment & Plan Assessment Current Active Medications: Generic Name Dose Route Start Last Admin Trade Name Freq PRN Reason Stop Dose Admin Acetaminophen 650 mg 06/11/25 04:01 Acetaminophen 325 Mg Tablet PO 07/11/25 04:00 Q6H PRN Fever >100.4 OR mild pain (1-3 Clonidine 0.1 mg 06/11/25 04:30 06/15/25 08:58 Clonidine Hcl 0.1 Mg Tablet PO 07/11/25 04:29 0.1 mg BID ARACELY Administration Heparin Sodium (Porcine) 5,000 unit 06/11/25 06:00 06/15/25 05:29 Heparin Sod Inj 5000 Unit/Ml Vial SC 06/25/25 05:59 5,000 unit Q8HR ARACELY Administration Hydralazine HCl 100 mg 06/11/25 11:35 06/15/25 05:29 Hydralazine Hcl 25 Mg Tablet PO 07/11/25 11:34 100 mg TID ARACELY Administration Hydromorphone HCl 0.5 mg 06/15/25 08:06 Hydromorphone Inj 2 Mg/Ml Vial IVP 06/19/25 18:29 Q6HR PRN Severe Pain 7-10 Protocol Ceftriaxone Sodium/Dextrose 2 gm in 50 mls @ 100 mls/hr 06/12/25 09:00 06/15/25 08:59 Rocephin/D5w 2gm IV 06/19/25 08:59 100 mls/hr QDAY ARACELY Administration Lactated Ringer's 1,000 mls @ 999 mls/hr 06/15/25 10:14 Lactated Ringers IV 06/15/25 11:14 .Q1H1M ONE Labetalol HCl 10 mg 06/11/25 11:33 Labetalol Inj 5 Mg/Ml Vial 4 Ml IVP 07/11/25 11:32 Q6HR PRN Hypertension Nifedipine 90 mg 06/13/25 09:00 06/15/25 08:59 Nifedipine Xl 30 Mg Tabcr PO 07/13/25 08:59 90 mg QDAY ARACELY Administration Ondansetron HCl 4 mg 06/11/25 04:01 06/12/25 09:09 Ondansetron Inj 2 Mg/Ml Inj 2 Ml IVP 07/11/25 04:00 4 mg Q6H PRN Administration NAUSEA OR VOMITING Protocol Tramadol HCl 50 mg 06/15/25 08:05 Tramadol Hcl 50 Mg Tablet PO 06/20/25 08:04 Q6HR PRN PAIN SCALE 4-10(Mod-Sev Protocol Plan 35-year-old male with a history of spina bifida, 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 Patient admitted for complicated UTI and possible pyelonephritis. #Complicated UTI #?Pyelonephritis, right #Hx of staghorn calculi s/p renal stone ablation and stents Recurrent UTIs, recent discharge from hospital 05/22 for pyelonephritis, cultures came back positive for Proteus mirabilis No previous history of ESBL Complaining of hematuria and bilateral abdominal and back pain Afebrile WBC within normal range UA turbid, nitrite and leuk positive, WBC 83 CT abdomen/pelvis (prelim read) shows bilateral ureteritis, possible right pyelonephritis, bilateral hydronephrosis with JJ catheters in place. Dx: -06/11 UCx ordered, showed Proteus mirablis again, likely chronic UTI/Colonization -06/11 BCx ordered, showed [id number] Rx: -Ceftriaxone 2 g IV daily [06/11--] -IV fluid resuscitation -Pain control: Dilaudid 1 mg->0.5 mg IV Q4HR PRN for Severe Pain 7-10 (goal: tramadol 50 mg PO Q12HR PRN) -Out-patient Urology follow-up in 1-2 weeks for ureteral stent replacement (no need for transfer per Urology) -Long-term solution is ultimately for Urology to remove staghorn calculi -Urology consulted, appreciate recommendations #Hypertensive emergency, resolved #Severe hypertension, well controlled 06/11 admission BP 206/136 Patient takes amlodipine 10 daily, clonidine 0.5 mg twice daily, losartan 25 mg p.o. twice daily, In ED patient received Labetalol 10 mg Rx: -Clonidine 0.1 mg PO BID -Hydralazine 100 mg PO TID -Nifedipine 60 mg PO qD -Labetalol 10 mg IV q6HR prn for SBP>180 or DBP>120 Health Maintenance: Diet: Renal GI prophylaxis: None DVT prophylaxis: Heparin 5000u SC every 8 hours Antibiotics: Ceftriaxone 2 g IV daily CODE STATUS: Full Disposition: Med Surg Patient plan of care was discussed with the attending physician, Dr. Abel Badillo DO PGY-1 Attending Provider Attestation/Addendum I have discussed and was present for the essential components of the history, physical examination, diagnosis, and treatment plan with the resident. I agree with the patient's care as documented by the resident and amended herein by me. Felipe Roman DO. Although this document has been carefully reviewed, there may still be some phonetic and other typographical errors. These errors are purely grammatical due to imperfections in the software program and should not be construed in any way to compromise the substance of the patient's medical care during this visit. Patient seen and evaluated this AM. No acute events overnight, I/O 1640/2800 mL. Patient afebrile overnight, no bowel movements recorded. Urine cultures again growing MDR Proteus. Significant labs today include a normal WBC, low hemoglobin 8.1 but stable, sodium 133, potassium 3.0 which has been repleted, BUN 25 and an uptrend in the patient's creatinine to 1.7 today. Per urology recommendations will continue IV antibiotics which is ceftriaxone presently day 5 was planning on completing a 7-day course. Will also give a 1L LR bolus today, also encouraged oral fluid intake in which the patient understood. Also discussed with social security specialist about changing the patient's SS worker, she would go down there and give him the details or the process in doing so. Urology, Dr. Morelos saw the patient, he was recommendations on the antibiotics and wished to see the patient in 1 to 2 weeks for stent replacement which was explained to the patient. We believe the patient does need to follow at a tertiary center for further management, possibly [facility] or [facility] which was explained to him This afternoon, the patient decided to leave AGAINST MEDICAL ADVICE, we did explain the risks to the patient up to and including , the patient understood. Patient decided to leave regardless
[2025-06-15] MEDS: POTASSIUM CHLORIDE 10% 20 MEQ/15 ML UDC 40 MEQ PO (10:34)
[2025-06-15] MEDS: RINGERS LACTATED 1000 ML 1,000 ML 999 ML IV (10:35)
--- NOTE | 2025-06-15 14:31 | PC.SS ---
Rounding: On IV ABX for 2 days per Urology
--- NOTE | 2025-06-15 20:15 | PD.RESDS ---
Planned Discharge Date 06/15/25 DS: Providers Provider Date of admission: 06/11/25 14:36 Primary care physician: Vandana Sears NP Admitting Provider: Matty Edwards MD Attending Provider on Admission: Arun Roman DO Consults: 06/11/25 15:19 [facility] Referral - Nutrition Routine Comment: Positive screening for nutrition needs. 06/13/25 14:30 Consult to Urology Routine Comment: For staghorn calculi Consulting Provider: Gisel Morelos Attending Provider on DC: Arun Roman DO Discharging Provider: Trey Badillo MD DS: Diagnosis Problem List Completed Was Problem List Reviewed/Reconciled?: Yes Hospital Course Hospital Course Hospital course: Patient left AGAINST MEDICAL ADVICE on 06/15/2025, all the risks of leaving AGAINST MEDICAL ADVICE were explained to the patient to include . 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 Hospital: During patient's hospital course, patient was treated with Rocephin IV and had his pain managed for his complicated UTI and possible right pyelonephritis in the setting of retained bilateral staghorn calculi. Urology was consulted and initially recommended that patient be transferred to a tertiary care center for urological removal of the staghorn calculi but this ultimately did not come to fruition. Urology then recommended that patient be continued on IV antibiotics with plans to have his ureteral stents replaced in 1-2 weeks in the outpatient setting. Otherwise, patient had his hypertension adequately controlled by clonidine PO, hydralazine PO, and nifedipine PO. On 06/15, patient left AMA after being properly informed of the risks and dangers of leaving before his infection had been fully treated by antibiotics. Recommendations: -Follow up with PCP within 1 week of leaving AMA -Continue rest of medications as previously prescribed -Return to the ED or call EMS if symptoms return and/or worsen. Hospital Diagnoses: #Complicated UTI #?Pyelonephritis, right #Hx of staghorn calculi s/p renal stone ablation and stents #Hypertensive emergency, resolved #Severe hypertension, well controlled Status at Discharge Cognitive/Behavioral Status at Discharge: unstable Functional Status at Discharge: bedbound Overall Status at Discharge: not medically cleared Patient's care plan was discussed with my attending, Dr. Roman, and senior resident, Dr. Roca. Trey Badillo, DO Internal Medicine, PGY-1 Time Spent with Patient Time attestation: Total time spent providing and/or coordinating discharge services: Time spent: Greater than 30 minutes Exam Vital Signs Temp Pulse Resp BP Pulse Ox O2 Del Method 98.2 F 96 18 139/90 H 94 L Room Air 06/15/25 11:45 06/15/25 12:00 06/15/25 11:45 06/15/25 11:45 06/15/25 11:45 06/15/25 11:45 Narrative Exam General: Awake. HEENT: Normocephalic, atraumatic, mucous membranes moist. Heart: Regular rate and rhythm, no murmurs. Lungs: Clear to auscultation with no wheezing or crackles. Abdomen: Soft, nondistended, mild to moderate tenderness through out the abdomen, positive bowel sounds. ?No guarding or rebound tenderness. Neurologic: Alert and oriented x3, no gross neurological deficit, and patient able to move all 4 extremities. Extremities: No edema. Skin: No rash or ecchymoses. Discharge Plan Plan Patient Disposition: Left Against Medical Advice Prescriptions/Referrals Prescriptions/Med Rec: No Action amlodipine 10 mg tablet 10 mg PO DAILY Patient Comments: TAKE 1 TABLET BY MOUTH EVERY DAY pantoprazole 40 mg Tablet,Delayed Release (Dr/Ec) 40 mg PO BID 30 Days Qty: 60 0RF clonidine HCl 0.1 mg tablet 0.1 mg PO BID Patient Comments: TAKE 1 TABLET BY MOUTH TWICE A DAY Referrals: Vandana Sears, SYSTEMS SUPPORT OFFICER [Primary Care Provider] Patient/Caregiver Discharge Instructions Education Materials: Kidney Stones Surg, Kidney Infec Dc Print Language: Slovak Quality Discharge Quality Measures VTE prophylaxis MD Attestestation MD Attestation Patient was not discharged but left AGAINST MEDICAL ADVICE, all the risks were explained to the patient to include , he understood, we did advise the patient that he needs to follow-up with Dr Morelos, urology within 1 week of discharge for stent replacement and hopefully he can also get to a tertiary center for follow-up in regards to his staghorn calculi and repeated hospitalizations for urinary tract infections. Patient understood all instructions.
--- NOTE | 2025-06-17 20:43 | ESCONSULT_ITS ---
RE: JOSE MELGAR : 1990 DATE OF CONSULTATION: 06/14/2025 CHIEF COMPLAINT: On this patient: 1. Neurogenic bladder. 2. Staghorn renal calculi, status post placement of bilateral ureteral stent. 3. Hypertension. 4. 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 5. Patient is on intermittent catheterization. HISTORY OF PRESENT ILLNESS: This is a 35-year-old gentleman. This patient was admitted in the hospital through the emergency room with history of fever, abdominal pain. Patient had exchange of bilateral ureteral stents on 05/22/2025. Patient has abdominal pain, fever. Urine cultures were done, it grew E. coli. Past medical history, family history, review of systems, personal history: Please refer to patient history form dated 06/11/2025 which is in HPI in EMR. In the emergency room, his temperature was 97.9, blood pressure was 206/136, heart rate 109, respirations 20, O2 saturation 98% at room air. WBC is 10, hemoglobin is 9.5. Serum creatinine is 1.9, BUN 34, lactic acid 1.2. LFT within normal limits. Lipase 76. CT scan of the abdomen and pelvis was done. This is reviewed by me. This revealed bilateral staghorn calculi, possible pyelonephritis, status post placement of double-J stents. ALLERGIES: HYDROCODONE. FAMILY HISTORY: Noncontributory. SOCIAL HISTORY: He does not use alcohol. He smokes marijuana. REVIEW OF SYSTEMS: All systems reviewed and negative except as documented. PHYSICAL EXAMINATION: GENERAL: General condition is satisfactory. Orientation x3. HEENT: Normocephalic, atraumatic. Eyes: No anemia or jaundice. NECK: Supple. Trachea central. Thyroid is not enlarged. EXTREMITIES: Reveal no edema, cyanosis, or clubbing. CHEST: Symmetrical. HEART: Regular rate and rhythm. ABDOMEN: Soft, nontender, no masses. Liver, spleen, kidney not palpable. No CVA tenderness. VARIOUS LABORATORIES: WBC 10.0. Hemoglobin 9.5. Serum creatinine is 1.9. GFR 34. Patient is on intermittent catheterization. Urine showed protein 3+. RECOMMENDATIONS: Plan is treat him with the antibiotics according to the culture and sensitivity. Followup appointment in urology office in 3 months time. He is going to need replacement of his bilateral ureteral stent. DT: 16:35:00 TT: 20:42:00 Ref: [id number] - TID: [id number] MTDD
== END 2025-06-15 15:15 | disposition left against medical advice (07) | DRG 463 ==
LOC: SERX 03:36 → SERHOLD 06:42 → S2NX 14:59
PROVIDERS: Physician Assistant; Admitting Provider Internal Medicine; Emergency Provider Emergency Medicine; PCP Nurse Practitioner Family; Visit Provider Student in an Organized Health Care Education/Training Program
DX: N12 Tubulo-interstitial nephritis, not specified as acute or chronic (principal); Q05.9 Spina bifida, unspecified; Z87.440 Personal history of urinary (tract) infections; I10 Essential (primary) hypertension; I16.1 Hypertensive emergency; Z87.442 Personal history of urinary calculi; B96.20 Unspecified Escherichia coli [E. coli] as the cause of diseases classified elsewhere; Z16.24 Resistance to multiple antibiotics; Z53.29 Procedure and treatment not carried out because of patient's decision for other reasons; Z79.899 Other long term (current) drug therapy; Z98.2 Presence of cerebrospinal fluid drainage device; Z59.82 Transportation insecurity; Z88.5 Allergy status to narcotic agent
CPT/HCPCS: 36415; 74176; 80048; 80053; 81001; 83605; 83690; 83735; 84100; 85025; 85610; 87040; 87077; 87081; 87086; 87186; 96361; 96365; 96375; 96376; 99284; J0696; J1171; J1644; J2270; J2405; J3490; J7120; A9270; J1920